=== PATIENT | female | born 1960 | race Caucasian/White ===

== ENCOUNTER 2016-05-14 10:11 | Emergency (ER) | payer MEDICARE, OTHER ==
--- NOTE | 2016-05-14 13:50 | ED ---
General Adult HPI - General Chief complaint: Upper Respiratory Infection Stated complaint: dizzy,congestion Time Seen by Provider: 05/14/16 10:35 Source: patient, RN notes reviewed Mode of arrival: ambulatory Limitations: no limitations - History of Present Illness Initial comments: This is a 55-year-old female who presents emergency Department stating that since she's had a cough is been unable to get over the cough. Patient states she has not been able produce any sputum. Patient states she has had no difficulty breathing or shortness of breath. Patient states occasionally she coughs real hard she has some sharp chest pain but without coughing she has no chest pain. Patient denies any recent fever or chills. Patient denies any facial tenderness. Patient denies any sore throat or ear pain. Patient states occasionally she has a mild headache from all the coughing but currently does not have a headache. Patient states the main reason for coming in today is because she has to go see a friend who she is had surgery and she does not want to get her infected. Any abdominal pain patient denies nausea vomiting diarrhea. - Related Data Home Medications Medication Instructions Recorded Confirmed Baclofen [Lioresal] 10 mg PO DAILY@0900 02/04/16 05/14/16 Carvedilol [Carvedilol] 6.25 mg PO BID@0900,1700 02/04/16 05/14/16 Gabapentin [Gabapentin] 300 mg PO TID 02/04/16 05/14/16 rOPINIRole HCL 10 mg PO HS@2100 02/04/16 05/14/16 Levothyroxine Sodium [Synthroid] 112 mcg PO DAILY@0700 05/14/16 05/14/16 Lisinopril [Zestril] 10 mg PO DAILY@0900 05/14/16 05/14/16 Lovastatin [Mevacor] 40 mg PO HS 05/14/16 05/14/16 Spironolactone [Aldactone] 25 mg PO DAILY@0900 05/14/16 05/14/16 Previous Rx's Medication Instructions Recorded Azithromycin [Zithromax Tri-Micah] 500 mg PO DAILY #3 tab 05/14/16 Allergies Allergy/AdvReac Type Severity Reaction Status Date / Time adhesive Allergy Rash/Hives Verified 05/14/16 13:37 ibuprofen [From Motrin] Allergy Rash/Hives Verified 05/14/16 13:37 latex Allergy Rash/Hives Verified 05/14/16 13:37 Penicillins Allergy Rash/Hives Verified 05/14/16 13:37 topiramate [From Topamax] Allergy Swelling Verified 05/14/16 13:37 Review of Systems ROS Statement: Those systems with pertinent positive or pertinent negative responses have been documented in the HPI. ROS Other: All systems not noted in ROS Statement are negative. Past Medical History Past Medical History: Asthma, Coronary Artery Disease (CAD), Chest Pain / Angina , Heart Failure, Hyperlipidemia, Hypertension, Seizure Disorder, Skin Disorder, Sleep Apnea/CPAP/BIPAP Additional Past Medical History / Comment(s): LAST KNOWN SEIZURE IN DEC, 2015. 01/11/16Pt direct admission for seizures and unsteady gait. Other HX: developementally disabled, hypothyroid, RLS, cervical and back pain with pain down bilateral legs, leg weakness, nausea at times, occasional numbness and tingling to bilateral hands and feet.NO CPAP MACHINE, CONSTIPATED. History of Any Multi-Drug Resistant Organisms: None Reported Past Surgical History: Adenoidectomy, Heart Catheterization, Hysterectomy, Tonsillectomy Additional Past Surgical History / Comment(s): 08/02/15 colonoscopy, 05/30/14 cardiac cath, cervical surgery 10/2014 - at [facility], Past Anesthesia/Blood Transfusion Reactions: No Reported Reaction Date of Last Stent Placement:: 06/03/2014 Past Psychological History: Depression Additional Psychological History / Comment(s): Pt states she currently resides with her sister. She is mildly developmentally delayed. She has a case briefer and a nurse who comes once a week. She uses [employer] to manage her medications. She gets to [employer] by bus. She does not read or write other than signing her name. She has no legal gaurdian. She states she has had falls and that her sister's home is too small for her to be able to use any assistive devices. She states her sister can no longer help her up when she falls. She has a seizure disorder. Smoking Status: Never smoker Past Alcohol Use History: None Reported Additional Past Alcohol Use History / Comment(s): Pt states she is around 2nd hand smoke. Past Drug Use History: None Reported - Past Family History Father Family Medical History: Diabetes Mellitus, Renal Disease Additional Family Medical History / Comment(s): Father had IDDM. He at the age of 73 yrs. Mother Family Medical History: Diabetes Mellitus Additional Family Medical History / Comment(s): "heart problems" "had stents", IDDM. Mother at the age of 73 yrs. General Exam - General Exam Comments Initial Comments: GENERAL: Patient is well-developed and well-nourished. Patient is nontoxic and well- hydrated and is in mild distress. ENT: Neck is soft and supple. No significant lymphadenopathy is noted. Oropharynx is clear. Moist mucous membranes. Neck has full range of motion without eliciting any pain. EYES: The sclera were anicteric and conjunctiva were pink and moist. Extraocular movements were intact and pupils were equal round and reactive to light. Eyelids were unremarkable. PULMONARY: Unlabored respirations. Good breath sounds bilaterally. No audible rales rhonchi or wheezing was noted. CARDIOVASCULAR: There is a regular rate and rhythm without any murmurs gallops or rubs. ABDOMEN: Soft and nontender with normal bowel sounds. No palpable organomegaly was noted. There is no palpable pulsatile mass. SKIN: Skin is clear with no lesions or rashes and otherwise unremarkable. NEUROLOGIC: Patient is alert and oriented x3. Cranial nerves II through XII are grossly intact. Motor and sensory are also intact. Normal speech, volume and content. MUSCULOSKELETAL: Normal extremities with adequate strength and full range of motion. No lower extremity swelling or edema. No calf tenderness. LYMPHATICS: No significant lymphadenopathy is noted PSYCHIATRIC: Normal psychiatric evaluation. Limitations: no limitations Course Vital Signs 05/14/16 05/14/16 05/14/16 10:15 13:54 14:14 Temperature 98.1 F 98.2 F Pulse Rate 84 76 67 Respiratory 18 18 20 Rate Blood Pressure 113/58 111/64 122/69 O2 Sat by Pulse 97 96 100 Oximetry Medical Decision Making - Medical Decision Making Chest x-ray shows no acute abnormality. But because of the patient's continuing cough and start the patient on some Zithromax and have her follow-up with her primary medical care doctor. Disposition Clinical Impression: Bronchitis Disposition: HOME SELF-CARE Condition: Good Instructions: Acute Bronchitis (ED) Prescriptions: Azithromycin [Zithromax Tri-Micah] 500 mg PO DAILY #3 tab Referrals: Júnior Hancock MD [Primary Care Provider] - 1-2 days Time of Disposition: 14:24
[2016-05-14 13:56] VITALS: TEMP 98.2
--- NOTE | 2016-05-14 14:09 | XR ---
EXAMINATION TYPE: XR chest 2V DATE OF EXAM: 05/14/2016 2:03 PM COMPARISON: Prior chest x-ray January 09, 2016. HISTORY: Difficulty in breathing and cough for one month. TECHNIQUE: Frontal and lateral views of the chest are obtained. FINDINGS: There is no focal air space opacity, pleural effusion, or pneumothorax seen. The cardiac silhouette size is stable and enlarged. Surgical changes lower cervical spine are redemonstrated with vertebral body cage and anterior fusion plate noted. IMPRESSION: Cardiomegaly without acute pulmonary process. No significant change from prior.
[2016-05-14 14:15] VITALS: BP 122/69; PULSE 67; RESP 20
== END 2016-05-14 14:41 | disposition home or self-care (01) ==
LOC: EC 10:11
DX: J40 Bronchitis, not specified as acute or chronic (principal); I51.7 Cardiomegaly; R62.50 Unspecified lack of expected normal physiological development in childhood; I25.10 Atherosclerotic heart disease of native coronary artery without angina pectoris; G25.81 Restless legs syndrome; E03.9 Hypothyroidism, unspecified; I50.9 Heart failure, unspecified; I10 Essential (primary) hypertension; Z88.8 Allergy status to other drugs, medicaments and biological substances; Z88.6 Allergy status to analgesic agent; Z88.0 Allergy status to penicillin; Z98.61 Coronary angioplasty status; Z91.040 Latex allergy status; Z91.048 Other nonmedicinal substance allergy status; Z79.899 Other long term (current) drug therapy
CPT/HCPCS: 71020; 99283

== ENCOUNTER → 2016-05-29 | Outpatient (CLI) | payer MEDICARE, OTHER ==
--- NOTE | 2016-05-29 11:53 | CT ---
EXAMINATION TYPE: CT chest w con DATE OF EXAM: 05/29/2016 10:50 AM COMPARISON: Chest x-ray 14 May 2016 HISTORY: Patient complains of difficulty breathing, shortness of breath. CT DLP: 551.3 mGycm Automated exposure control for dose reduction was used. CONTRAST: CT scan of the chest is performed with IV Contrast, patient injected with 100 mL of Omnipaque 300. FINDINGS: LUNGS: The lungs are clear, there is no concerning parenchymal mass or nodule identified. There is no pleural effusion or pneumothorax seen. The tracheobronchial tree is patent. MEDIASTINUM: There are no greater than 1 cm hilar or mediastinal lymph nodes. No pericardial effusi on is seen. AORTA: No additional significant abnormality is seen. There is a four-vessel transverse aorta. Pulmo nary artery measures approximately 3.5 cm. Ascending aorta is 3.8 cm. Heart size is borderline increa sed. OTHER: Postop changes are noted to the lower cervical spine. IMPRESSION: Consider pulmonary artery hypertension. Borderline cardiac size..
== END | disposition home or self-care (01) ==
LOC: RADCTMAIN 10:24
PROVIDERS: ATTEND Family Medicine
DX: R06.02 Shortness of breath (principal)
CPT/HCPCS: 71260; Q9967

== ENCOUNTER → 2016-06-26 | Outpatient (CLI) | payer MEDICARE, OTHER ==
--- NOTE | 2016-06-26 14:09 | CT ---
EXAMINATION TYPE: CT abdomen pelvis wo con DATE OF EXAM: 06/26/2016 1:35 PM COMPARISON: NONE HISTORY: Epigastric pain after eating. CT DLP: 2079 mGycm Automated exposure control for dose reduction was used. TECHNIQUE: Helical acquisition of images was performed from the lung bases through the pelvis. FINDINGS: LUNG BASES: No significant abnormality is appreciated. LIVER/GB: No significant abnormality is appreciated. PANCREAS: No significant abnormality is seen. SPLEEN: No significant abnormality is seen. ADRENALS: No significant abnormality is seen. KIDNEYS: No significant abnormality is seen. URINARY BLADDER: No significant abnormality is seen. ADENOPATHY: None visualized. OSSEOUS STRUCTURES: Hypertrophic change of the spine. Degenerative disc disease involving levels L3- S1 with severe changes at L5-S1. Vacuum disc noted.. BOWEL: No significant abnormality is seen. IMPRESSION: LIMITED EXAM DUE TO LACK OF IV CONTRAST. NO ACUTE PROCESS IDENTIFIED.
== END ==
LOC: RADCTMAIN 13:07
PROVIDERS: ATTEND Family Medicine
DX: R10.9 Unspecified abdominal pain (principal)
CPT/HCPCS: 74176

== ENCOUNTER 2016-10-27 20:35 | Emergency (ER) | payer MEDICARE ==
--- NOTE | 2016-10-27 21:07 | ED ---
General Adult HPI - General Chief complaint: Extremity Injury, Lower Stated complaint: Swollen leg Time Seen by Provider: 10/27/16 20:52 Source: patient, RN notes reviewed Mode of arrival: ambulatory Limitations: no limitations - History of Present Illness Initial comments: Patient 56-year-old female who presents emergency room today with chief complaint of injury to the right ankle. Does admit that she fractured her right ankle approximately a month ago. States she's been using a walking boot. States a week ago she fell injuring the ankle once again. She states she did have boot on at the time. States that her knees found out about this advised to come to the emergency room to have it evaluated. She denies any other complaints or associated symptoms at this time. Patient denies any recent fever , chills, shortness of breath, chest pain, back pain, abdominal pain, nausea or vomiting, numbness or tingling, dysuria or hematuria, constipation or diarrhea, headaches or visual changes, or any other complaints. - Related Data Home Medications Medication Instructions Recorded Confirmed Baclofen [Lioresal] 10 mg PO DAILY@0900 02/04/16 05/14/16 Carvedilol [Carvedilol] 6.25 mg PO BID@0900,1700 02/04/16 05/14/16 Gabapentin [Gabapentin] 300 mg PO TID 02/04/16 05/14/16 rOPINIRole HCL 10 mg PO HS@2100 02/04/16 05/14/16 Levothyroxine Sodium [Synthroid] 112 mcg PO DAILY@0700 05/14/16 05/14/16 Lisinopril [Zestril] 10 mg PO DAILY@0900 05/14/16 05/14/16 Lovastatin [Mevacor] 40 mg PO HS 05/14/16 05/14/16 Spironolactone [Aldactone] 25 mg PO DAILY@0900 05/14/16 05/14/16 Previous Rx's Medication Instructions Recorded Azithromycin [Zithromax Tri-Micah] 500 mg PO DAILY #3 tab 05/14/16 Allergies Allergy/AdvReac Type Severity Reaction Status Date / Time adhesive Allergy Rash/Hives Verified 10/27/16 20:50 ibuprofen [From Motrin] Allergy Rash/Hives Verified 10/27/16 20:50 latex Allergy Rash/Hives Verified 10/27/16 20:50 Penicillins Allergy Rash/Hives Verified 10/27/16 20:50 topiramate [From Topamax] Allergy Swelling Verified 10/27/16 20:50 Review of Systems ROS Statement: Those systems with pertinent positive or pertinent negative responses have been documented in the HPI. ROS Other: All systems not noted in ROS Statement are negative. Past Medical History Past Medical History: Asthma, Coronary Artery Disease (CAD), Chest Pain / Angina , Heart Failure, Hyperlipidemia, Hypertension, Seizure Disorder, Skin Disorder, Sleep Apnea/CPAP/BIPAP Additional Past Medical History / Comment(s): LAST KNOWN SEIZURE IN DEC, 2015. 01/11/16Pt direct admission for seizures and unsteady gait. Other HX: developementally disabled, hypothyroid, RLS, cervical and back pain with pain down bilateral legs, leg weakness, nausea at times, occasional numbness and tingling to bilateral hands and feet.NO CPAP MACHINE, CONSTIPATED. History of Any Multi-Drug Resistant Organisms: None Reported Past Surgical History: Adenoidectomy, Heart Catheterization, Hysterectomy, Tonsillectomy Additional Past Surgical History / Comment(s): 08/02/15 colonoscopy, 05/30/14 cardiac cath, cervical surgery 10/2014 - at [facility], Past Anesthesia/Blood Transfusion Reactions: No Reported Reaction Date of Last Stent Placement:: 06/03/2014 Past Psychological History: Depression Smoking Status: Never smoker Past Alcohol Use History: None Reported Past Drug Use History: None Reported - Past Family History Father Family Medical History: Diabetes Mellitus, Renal Disease Additional Family Medical History / Comment(s): Father had IDDM. He at the age of 73 yrs. Mother Family Medical History: Diabetes Mellitus Additional Family Medical History / Comment(s): "heart problems" "had stents", IDDM. Mother at the age of 73 yrs. General Exam - General Exam Comments Initial Comments: General: The patient is awake and alert, in no distress, and does not appear acutely ill. Neck: The neck is supple, there is no tenderness or JVD. Cardiovascular: There is a regular rate and rhythm. No murmur, rub or gallop is appreciated. Respiratory: Lungs are clear to auscultation, respirations are non-labored, breath sounds are equal. No wheezes, stridor, rales, or rhonchi. Musculoskeletal: Normal appearance of the right ankle obvious deformity. Shows good range of motion both plantar dorsiflexion. Mild tenderness over the fifth metatarsal. Mild tenderness over the lateral malleolus. On the bony tenderness. No tenderness to the right knee. Sensations intact with pulses equal bilaterally 2+. Neurological: A&O x 3. CN II-XII intact, There are no obvious motor or sensory deficits. Coordination appears grossly intact. Speech is normal. Skin: Skin is warm and dry and no rashes or lesions are noted. Psychiatric: Normal mood and affect. Limitations: no limitations Course Vital Signs 10/27/16 10/27/16 20:44 21:32 Temperature 98.2 F 97.6 F Pulse Rate 79 72 Respiratory 20 20 Rate Blood Pressure 182/103 151/76 O2 Sat by Pulse 99 99 Oximetry Medical Decision Making - Medical Decision Making X-ray reviewed shows a healing fracture with no dislocation. Results were discussed with the patient. Patient advised to continue using walking boot when up and moving around. Advised ice elevate the area for pain. Advised follow-up with her orthopedic or the next 2 days or return if any symptoms increase or worsen or for any other concerns. She states understanding and is in agreement. Disposition Clinical Impression: Ankle fracture, right Disposition: HOME SELF-CARE Condition: Good Instructions: Ankle Fracture (ED) Additional Instructions: Please follow-up with orthopedic/family doctor in the next 2 days of symptoms. Please return to emergency room if the symptoms increase or worsen or for any other concerns. Referrals: Júnior Hancock MD [Primary Care Provider] - 1-2 days Dick Emerson MD [REFERRING] - 1-2 days Time of Disposition: 21:40
--- NOTE | 2016-10-27 21:31 | XR ---
EXAMINATION TYPE: XR foot complete RT DATE OF EXAM: 10/27/2016 COMPARISON: NONE HISTORY: Ankle pain TECHNIQUE: 3 views FINDINGS: There is an Achilles calcaneal spur. There is soft tissue swelling in the forefoot. Metatar sals appear intact. I see no fracture nor dislocation. Healing oblique fracture distal fibula is note d. IMPRESSION: No acute bony abnormality of the foot. Soft tissue swelling.
--- NOTE | 2016-10-27 21:33 | XR ---
EXAMINATION TYPE: XR ankle complete RT DATE OF EXAM: 10/27/2016 COMPARISON: NONE HISTORY: Pain TECHNIQUE: 3 views FINDINGS: There is an oblique fracture of the distal fibula with bridging callus. Ankle mortise is an atomic. There is an Achilles calcaneal spur. IMPRESSION: Healing fracture of the distal fibula. No significant displacement. Calcaneal spurring.
[2016-10-27 21:58] VITALS: BP 160/97; PULSE 73; RESP 15; TEMP 97.5
== END 2016-10-27 21:58 | disposition home or self-care (01) ==
LOC: EC 20:35
DX: S82.831D Other fracture of upper and lower end of right fibula, subsequent encounter for closed fracture with routine healing (principal); I50.9 Heart failure, unspecified; I25.10 Atherosclerotic heart disease of native coronary artery without angina pectoris; E78.5 Hyperlipidemia, unspecified; I10 Essential (primary) hypertension; G40.909 Epilepsy, unspecified, not intractable, without status epilepticus; E03.9 Hypothyroidism, unspecified; G25.81 Restless legs syndrome; Z79.899 Other long term (current) drug therapy; Z88.0 Allergy status to penicillin; Z91.040 Latex allergy status; Z88.6 Allergy status to analgesic agent; Z88.8 Allergy status to other drugs, medicaments and biological substances; Z95.818 Presence of other cardiac implants and grafts; W18.30XA Fall on same level, unspecified, initial encounter
CPT/HCPCS: 99283

== ENCOUNTER → 2017-10-06 | Day surgery (SDC) | payer MEDICARE, OTHER ==
[2017-10-01 13:32] VITALS: BMI 43.8
[~2017-10-06] MED LIST: LACTATED RINGERS 1,000 ML IV SCH; PROPOFOL 10 MG/ML 20 ML VIAL IV ONE
[2017-10-06 09:17] VITALS: RESP 16; TEMP 96.9
--- NOTE | 2017-10-06 09:50 | P.GSHP ---
History of Present Illness H&P Date: 10/06/17 Chief Complaint: GERD, colitis Reproducer 56-year-old female who's had long-standing problems with GERD and colitis. Patient is also had complaints of abdominal pain change in bowel had with diarrhea. She presents today for EGD and colonoscopy. Past Medical History Past Medical History: Chest Pain / Angina, Heart Failure, Hyperlipidemia, Hypertension, Osteoarthritis (OA), Pneumonia, Seizure Disorder, Skin Disorder, Sleep Apnea/CPAP/BIPAP, Thyroid Disorder Additional Past Medical History / Comment(s): LAST KNOWN SEIZURE a couple months ago. developementally disabled, restless leg syndrme, cervical and back pain with pain down bilateral legs, leg weakness, occasional numbness and tingling to bilateral hands and feet, no cpap used currently, abdominal pain. has a bowel movement-(diarrhea)- right after eating, states has had recent falls , persistant itching-cause unknown, History of Any Multi-Drug Resistant Organisms: None Reported Past Surgical History: Adenoidectomy, Cholecystectomy, Heart Catheterization, Hysterectomy, Tonsillectomy Additional Past Surgical History / Comment(s): cervical surgery/cage, Past Anesthesia/Blood Transfusion Reactions: No Reported Reaction Date of Last Stent Placement:: 06/03/2014 Smoking Status: Never smoker - Past Family History Father Family Medical History: Diabetes Mellitus, Renal Disease Additional Family Medical History / Comment(s): Father had IDDM. He at the age of 73 yrs. Mother Family Medical History: No Reported History Additional Family Medical History / Comment(s): . Medications and Allergies Home Medications Medication Instructions Recorded Confirmed Type Gabapentin [Gabapentin] 300 mg PO BID 02/04/16 10/01/17 History rOPINIRole HCL 5 mg PO HS 02/04/16 10/01/17 History Baclofen [Lioresal] 10 mg PO BID 10/01/17 10/01/17 History Famotidine [Pepcid] 20 mg PO DAILY 10/01/17 10/01/17 History Furosemide [Lasix] 40 mg PO DAILY 10/01/17 10/01/17 History Inhaler(Name Unknown) 2 puff IH TID PRN 10/01/17 10/06/17 History Losartan [Cozaar] 50 mg PO DAILY 10/01/17 10/01/17 History Potassium Chloride [Klor-Con 8 meq PO DAILY 10/01/17 10/01/17 History Sprinkle] levETIRAcetam [Keppra] 750 mg PO Q12HR 10/01/17 10/01/17 History Allergies Allergy/AdvReac Type Severity Reaction Status Date / Time adhesive Allergy Rash/Hives Verified 10/01/17 13:08 divalproex sodium Allergy Rash/Hives Verified 10/01/17 13:08 [From Depakote] ibuprofen [From Motrin] Allergy Rash/Hives Verified 10/01/17 13:08 latex Allergy Rash/Hives Verified 10/01/17 13:08 Penicillins Allergy Rash/Hives Verified 10/01/17 13:08 topiramate [From Topamax] Allergy Swelling Verified 10/01/17 13:08 Surgical - Exam Vital Signs Temp Pulse Resp BP Pulse Ox 96.9 F L 79 16 169/98 98 10/06/17 09:16 10/06/17 09:16 10/06/17 09:16 10/06/17 09:16 10/06/17 09:16 BMI 44 - General well developed, no distress - Eyes PERRL - ENT normal pinna, normal nares - Respiratory normal expansion - Cardiovascular Rhythm: regular - Abdomen Abdomen: soft, non tender Assessment and Plan Assessment: GERD Abdominal pain, diarrhea Colitis We'll perform EGD colonoscopy.
--- NOTE | 2017-10-06 10:13 | P.OP ---
Date of Procedure: 10/06/17 Preoperative Diagnosis: GERD Colitis Postoperative Diagnosis: Antral gastritis Small hiatal hernia Mild esophagitis Rectal biopsy pathology pending Procedure(s) Performed: EGD Colonoscopy Anesthesia: MAC Surgeon: Blayne Sethi Pathology: other (Antrum, rectum, esophagus) Condition: stable Disposition: PACU Description of Procedure: Patient's placed on the endoscopy table lateral position. She received IV sedation. Digital rectal exam was performed which revealed a few external hemorrhoids. Flexible colonoscope was then placed the patient's anus and passed rotator entire colon. The ileocecal valve was visualized. The cecum, ascending and transverse colonAppeared normal. The scope was brought back the descending and sigmoid and this appeared normal. Scope summer back the rectum and a random biopsies performed. The rectum appeared normal. The scope was then withdrawn from patient. Next the gastroscope was placed oropharynx passed in the esophagus the scope was then placed through the pylorus. The scope was placed the first second portion of duodenum. The first and second portion duodenum appeared normal. Scope summer back the antrum this. Mildly inflamed. A biopsies performed. Scope was then retroflexed and remainder stomach appeared normal. There was a small hiatal hernia. The GE junction was at 38 cm. The distal esophagus was minimal inflamed and a biopsies performed. The proximal esophagus appeared normal. Scope was withdrawn for patient.
[2017-10-06 10:58] VITALS: BP 163/84; PULSE 63
== END | disposition home or self-care (01) ==
LOC: ORWHC2ENDO 08:46
PROVIDERS: ATTEND Surgery
DX: K29.50 Unspecified chronic gastritis without bleeding (principal); K52.9 Noninfective gastroenteritis and colitis, unspecified; K44.9 Diaphragmatic hernia without obstruction or gangrene; K64.4 Residual hemorrhoidal skin tags; K21.0 Gastro-esophageal reflux disease with esophagitis; I11.0 Hypertensive heart disease with heart failure; I50.9 Heart failure, unspecified; M19.90 Unspecified osteoarthritis, unspecified site; E07.9 Disorder of thyroid, unspecified; G25.81 Restless legs syndrome; E78.5 Hyperlipidemia, unspecified; G40.909 Epilepsy, unspecified, not intractable, without status epilepticus; Z88.0 Allergy status to penicillin; Z88.6 Allergy status to analgesic agent; Z99.89 Dependence on other enabling machines and devices; Z90.49 Acquired absence of other specified parts of digestive tract; Z83.3 Family history of diabetes mellitus; Z91.040 Latex allergy status; Z88.8 Allergy status to other drugs, medicaments and biological substances; Z91.048 Other nonmedicinal substance allergy status; G47.33 Obstructive sleep apnea (adult) (pediatric); Z87.01 Personal history of pneumonia (recurrent); Z79.899 Other long term (current) drug therapy
CPT/HCPCS: 88305; 88342; 45380; 43239; J2704

== ENCOUNTER → 2018-01-18 | Outpatient (CLI) | payer MEDICARE, OTHER ==
[2018-01-18 15:20] VITALS: BP 107/71; PULSE 64; RESP 16; TEMP 97.9; BMI 47.4
--- NOTE | 2018-01-25 15:03 | P.HPBAR ---
Bariatric H&P - History & Physicial H&P Date: 01/25/18 History & Physicial: Visit/CC: initial visit Patient initial contact: Initial weight: 137.438 kg Initial weight in pounds: 303.00 Height: 5 ft 7 in Initial BMI: 47.4 Last weight: Current weight: 137.438 kg Current weight in pounds: 303.00 Current BMI: 47.4 Henry body weight (based on NIH guidelines): 61.235 kg Excess body weight loss: 0.0% The patient is a 57 year-old F who presents for Bariatric Assessment. Patient presents today for presurgical sleeve gastrectomy consultation. She's had lifetime problems obesity. Her BMI is 48. Past Medical History Past Medical History: Chest Pain / Angina, Heart Failure, Hyperlipidemia, Hypertension, Osteoarthritis (OA), Pneumonia, Seizure Disorder, Skin Disorder, Sleep Apnea/CPAP/BIPAP, Thyroid Disorder Additional Past Medical History / Comment(s): LAST KNOWN SEIZURE a couple months ago. developementally disabled, restless leg syndrme, cervical and back pain with pain down bilateral legs, leg weakness, occasional numbness and tingling to bilateral hands and feet, no cpap used currently, abdominal pain. has a bowel movement-(diarrhea)- right after eating, states has had recent falls , persistant itching-cause unknown, History of Any Multi-Drug Resistant Organisms: None Reported Past Surgical History: Adenoidectomy, Cholecystectomy, Heart Catheterization, Hysterectomy, Tonsillectomy Additional Past Surgical History / Comment(s): cervical surgery/cage, Past Anesthesia/Blood Transfusion Reactions: No Reported Reaction Date of Last Stent Placement:: 06/03/2014 Past Psychological History: Depression Additional Psychological History / Comment(s): Pt states she currently resides with her sister. She is mildly developmentally delayed. She states she has had falls and that her sister's home is too small for her to be able to use any assistive devices. states she signs own consents Smoking Status: Never smoker Past Alcohol Use History: None Reported Additional Past Alcohol Use History / Comment(s): . Past Drug Use History: None Reported - Past Family History Father Family Medical History: Diabetes Mellitus, Renal Disease Additional Family Medical History / Comment(s): Father had IDDM. He at the age of 73 yrs. Mother Family Medical History: No Reported History Additional Family Medical History / Comment(s): . Surgical - Exam Vital Signs Temp Pulse Resp BP 97.9 F 64 16 107/71 01/18/18 15:15 01/18/18 15:15 01/18/18 15:15 01/18/18 15:15 - General well developed, no distress - Eyes PERRL - Abdomen Abdomen: soft, non tender Bariatric Assessment & Plan Plan: Morbid obesity BMI 48. Patient has a good understanding sleeve yesterday. We will over the risks and benefits again including gastric staple line bleeding scarring obstruction or perforation. She's also a risk of recurrent GERD and dysphagia. The patient be scheduled for sleeve gastrectomy once her insurance authorization complete Bariatric Checklist Checklist: Plan: Checklist: EGD: 1. Hiatal hernia: 2. H. Pylori: HgbA1c: Vitamin D: Smoking: Never smoker Primary care physician referral: Psychiatry clearance: Cardiology clearance: Sleep study: Diet journal: VTE risk score: VTE risk level: Rehab needs at discharge:
== END | disposition home or self-care (01) ==
LOC: BARWHC3 13:24
PROVIDERS: ATTEND Surgery
DX: Z01.818 Encounter for other preprocedural examination (principal); E66.01 Morbid (severe) obesity due to excess calories; Z68.42 Body mass index [BMI] 45.0-49.9, adult
CPT/HCPCS: 99201

== ENCOUNTER → 2018-02-17 | Outpatient (CLI) | payer MEDICARE, OTHER ==
[2018-02-17 18:33] LABS: Anion Gap 12.9 mmol/L (4.00-12.00); Calcium 9.8 mg/dL (8.7-10.3); Carbon Dioxide 23.1 mmol/L (21.6-31.8)
== END | disposition home or self-care (01) ==
LOC: LABWHC1 11:47
PROVIDERS: ATTEND Nurse Practitioner Adult Health
DX: I10 Essential (primary) hypertension (principal)
CPT/HCPCS: 36415; 80048

== ENCOUNTER 2018-02-24 09:11 | Day surgery (SDC) | payer MEDICARE, OTHER ==
[2018-02-22 08:55] VITALS: BMI 47.0
[~2018-02-24 09:11] MED LIST changes: +HYDROmorphone 1 MG/ML 1 ML SYRINGE IVP PRN; -PROPOFOL 10 MG/ML 20 ML VIAL IV ONE
[2018-02-24 11:08] VITALS: RESP 16; TEMP 97.7
[2018-02-24] MEDS ORDERED: fentaNYL (PF) 50 MCG/ML 2 ML AMP ONE (12:27)
[2018-02-24] MEDS ORDERED: PROPOFOL 10 MG/ML 20 ML VIAL IV ONE (12:27)
[2018-02-24] MEDS ORDERED: LIDOCAINE 1% INJ 10MG/ML (20 ML MDV) ONE (12:27)
--- NOTE | 2018-02-24 12:33 | P.GSHP ---
History of Present Illness H&P Date: 02/24/18 Chief Complaint: Dysphagia Is a 57-year-old female who's had issues with dysphagia. Patient presents today for EGD Past Medical History Past Medical History: Chest Pain / Angina, Heart Failure, Hyperlipidemia, Hypertension, Osteoarthritis (OA), Pneumonia, Seizure Disorder, Skin Disorder, Sleep Apnea/CPAP/BIPAP, Thyroid Disorder Additional Past Medical History / Comment(s): LAST KNOWN SEIZURE a couple months ago. developementally disabled, restless leg syndrome, back pain with pain down bilateral legs, leg weakness, occasional numbness and tingling to bilateral hands and feet, no cpap used currently, abdominal pain. has a bowel movement-(diarrhea)- right after eating, states has had recent falls, persistant itching-cause unknown, History of Any Multi-Drug Resistant Organisms: None Reported Past Surgical History: Adenoidectomy, Cholecystectomy, Heart Catheterization, Hysterectomy, Tonsillectomy Additional Past Surgical History / Comment(s): cervical surgery/cage, Past Anesthesia/Blood Transfusion Reactions: No Reported Reaction Date of Last Stent Placement:: 06/03/2014 Smoking Status: Never smoker - Past Family History Father Family Medical History: Diabetes Mellitus, Renal Disease Additional Family Medical History / Comment(s): Father had IDDM. He at the age of 73 yrs. Mother Family Medical History: No Reported History Additional Family Medical History / Comment(s): . Medications and Allergies Home Medications Medication Instructions Recorded Confirmed Type Gabapentin 300 mg PO BID 02/04/16 02/24/18 History rOPINIRole HCL 5 mg PO HS 02/04/16 02/24/18 History Baclofen [Lioresal] 10 mg PO BID 10/01/17 02/24/18 History Famotidine [Pepcid] 20 mg PO DAILY 10/01/17 02/24/18 History Furosemide [Lasix] 40 mg PO DAILY 10/01/17 02/24/18 History Inhaler(Name Unknown) 2 puff IH TID PRN 10/01/17 02/24/18 History Losartan [Cozaar] 50 mg PO DAILY 10/01/17 02/24/18 History Potassium Chloride [Klor-Con 8 meq PO DAILY 10/01/17 02/24/18 History Sprinkle] levETIRAcetam [Keppra] 750 mg PO Q12HR 10/01/17 02/24/18 History Allergies Allergy/AdvReac Type Severity Reaction Status Date / Time adhesive Allergy Rash/Hives Verified 02/24/18 11:07 divalproex sodium Allergy Rash/Hives Verified 02/24/18 11:07 [From Depakote] ibuprofen [From Motrin] Allergy Rash/Hives Verified 02/24/18 11:07 latex Allergy Rash/Hives Verified 02/24/18 11:07 Penicillins Allergy Rash/Hives Verified 02/24/18 11:07 topiramate [From Topamax] Allergy Swelling Verified 02/24/18 11:07 Surgical - Exam Vital Signs Temp Pulse Resp Pulse Ox 97.7 F 61 16 98 02/24/18 11:08 02/24/18 11:08 02/24/18 11:08 02/24/18 11:08 - General well developed, no distress - Eyes PERRL - ENT normal pinna - Neck no masses - Respiratory normal expansion - Cardiovascular Rhythm: regular - Abdomen Abdomen: soft, non tender Assessment and Plan Assessment: Dysphagia. We'll perform EGD.
--- NOTE | 2018-02-24 12:40 | P.OP ---
Date of Procedure: 02/24/18 Preoperative Diagnosis: Dysphagia Postoperative Diagnosis: Mild antral gastritis Procedure(s) Performed: EGD Anesthesia: MAC Surgeon: Blayne Sethi Pathology: other (Antrum) Condition: stable Disposition: PACU Description of Procedure: Patient's placed on the endoscopy table in the lateral position. She received IV sedation. The gastroscope placed oropharynx and passed in the esophagus and stomach. Scope was then placed through the pylorus. The first and second portion of the duodenum appeared normal. Scope was then brought back the antrum and this was mildly inflamed. A biopsies performed. The scope was then retroflexed and the remainder of the stomach appeared normal. There was no significant hiatal hernia. The GE junction was at 47 is. The distal esophagus appeared normal. The proximal esophagus. Normal. Scope was then withdrawn from patient.
[2018-02-24 14:22] VITALS: BP 126/70; PULSE 62
== END 2018-02-24 14:00 | disposition home or self-care (01) ==
LOC: ORWHC2ENDO 09:11
PROVIDERS: ATTEND Surgery
DX: K31.9 Disease of stomach and duodenum, unspecified (principal); K29.70 Gastritis, unspecified, without bleeding; I11.0 Hypertensive heart disease with heart failure; I50.9 Heart failure, unspecified; E78.5 Hyperlipidemia, unspecified; M19.90 Unspecified osteoarthritis, unspecified site; G40.909 Epilepsy, unspecified, not intractable, without status epilepticus; G47.30 Sleep apnea, unspecified; E07.9 Disorder of thyroid, unspecified; G25.81 Restless legs syndrome; M54.9 Dorsalgia, unspecified; M79.605 Pain in left leg; M79.604 Pain in right leg; R53.1 Weakness; R20.0 Anesthesia of skin; R20.2 Paresthesia of skin; R19.7 Diarrhea, unspecified; L29.9 Pruritus, unspecified; Z91.81 History of falling; Z79.899 Other long term (current) drug therapy; Z88.6 Allergy status to analgesic agent; Z91.040 Latex allergy status; Z88.0 Allergy status to penicillin; Z88.8 Allergy status to other drugs, medicaments and biological substances; Z91.048 Other nonmedicinal substance allergy status; Z90.49 Acquired absence of other specified parts of digestive tract; Z90.710 Acquired absence of both cervix and uterus; Z99.89 Dependence on other enabling machines and devices
CPT/HCPCS: 43239; J2001; J3010; J2704; 88305

== ENCOUNTER → 2018-03-15 | Outpatient (CLI) | payer MEDICARE, OTHER ==
[2018-03-15 14:42] VITALS: BP 115/86; PULSE 65; RESP 16; TEMP 98.5; BMI 44.6
--- NOTE | 2018-03-15 15:47 | P.HPBAR ---
Bariatric H&P - History & Physicial H&P Date: 03/15/18 History & Physicial: Visit/CC: EGD follow-up Patient initial contact: Initial weight: 137.438 kg Initial weight in pounds: 303.00 Height: 5 ft 7 in Initial BMI: 47.4 Last weight: Current weight: 129.274 kg Current weight in pounds: 285.00 Current BMI: 44.6 [place] body weight (based on NIH guidelines): 61.235 kg Excess body weight loss: 10.7% The patient is a 57 year-old F who presents for Bariatric Assessment. Patient presents today for presurgical consultation for sleeve gastrectomy. Her current BMI is 45. He has minimal complaints of GERD. Past Medical History Past Medical History: Chest Pain / Angina, Heart Failure, Hyperlipidemia, Hypertension, Osteoarthritis (OA), Pneumonia, Seizure Disorder, Skin Disorder, Sleep Apnea/CPAP/BIPAP, Thyroid Disorder Additional Past Medical History / Comment(s): LAST KNOWN SEIZURE a couple months ago. developementally disabled, restless leg syndrme, cervical and back pain with pain down bilateral legs, leg weakness, occasional numbness and tingling to bilateral hands and feet, no cpap used currently, abdominal pain. has a bowel movement-(diarrhea)- right after eating, states has had recent falls , persistant itching-cause unknown, History of Any Multi-Drug Resistant Organisms: None Reported Past Surgical History: Adenoidectomy, Cholecystectomy, Heart Catheterization, Hysterectomy, Tonsillectomy Additional Past Surgical History / Comment(s): cervical surgery/cage, Past Anesthesia/Blood Transfusion Reactions: No Reported Reaction Date of Last Stent Placement:: 06/03/2014 Past Psychological History: Depression Additional Psychological History / Comment(s): Pt states she currently resides with her sister. She is mildly developmentally delayed. She states she has had falls and that her sister's home is too small for her to be able to use any assistive devices. states she signs own consents Smoking Status: Never smoker Past Alcohol Use History: None Reported Additional Past Alcohol Use History / Comment(s): . Past Drug Use History: None Reported - Past Family History Father Family Medical History: Diabetes Mellitus, Renal Disease Additional Family Medical History / Comment(s): Father had IDDM. He at the age of 73 yrs. Mother Family Medical History: No Reported History Additional Family Medical History / Comment(s): . Surgical - Exam Vital Signs Temp Pulse Resp BP 98.5 F 65 16 115/86 03/15/18 14:39 03/15/18 14:39 03/15/18 14:39 03/15/18 14:39 - General well developed, no distress - Eyes PERRL - ENT normal pinna - Neck no masses, no bruits - Respiratory normal expansion - Cardiovascular Rhythm: regular - Abdomen Abdomen: soft, non tender Bariatric Assessment & Plan Plan: Morbid obesity. Patient will be scheduled for gastric sleeve 1 she has met her insurance authorization requirements. She'll follow-up in 4 weeks. Bariatric Checklist Checklist: Plan: Checklist: EGD: 1. Hiatal hernia: 2. H. Pylori: HgbA1c: Vitamin D: Smoking: Never smoker Primary care physician referral: [facility] Psychiatry clearance: Cardiology clearance: Sleep study: Diet journal: VTE risk score: VTE risk level: Rehab needs at discharge:
== END | disposition home or self-care (01) ==
LOC: BARWHC3 13:26
PROVIDERS: ATTEND Surgery
DX: Z01.818 Encounter for other preprocedural examination (principal); E66.01 Morbid (severe) obesity due to excess calories; K21.9 Gastro-esophageal reflux disease without esophagitis; Z68.41 Body mass index [BMI] 40.0-44.9, adult; Z90.49 Acquired absence of other specified parts of digestive tract
CPT/HCPCS: 99211

== ENCOUNTER → 2018-05-03 | Outpatient (CLI) | payer MEDICARE, OTHER ==
[2018-05-03 13:10] VITALS: BP 151/92; PULSE 82; RESP 16; TEMP 97.4; BMI 45.1
--- NOTE | 2018-05-03 16:09 | P.HPBAR ---
Bariatric H&P - History & Physicial H&P Date: 05/03/18 History & Physicial: Visit/CC: EGD FOLLOW-UP Patient initial contact: Initial weight: 137.438 kg Initial weight in pounds: 303.00 Height: 5 ft 7 in Initial BMI: 47.4 Last weight: Current weight: 130.691 kg Current weight in pounds: 288.13 Current BMI: 45.1 [place] body weight (based on NIH guidelines): 61.235 kg Excess body weight loss: 8.8% The patient is a 57 year-old F who presents for Bariatric Assessment. Patient presents today for sleeve gastrectomy follow-up. She's had issues with hypertension and GERD. Her primary care doctor has placed her on additional medication for hypertension. Past Medical History Past Medical History: Chest Pain / Angina, Heart Failure, Hyperlipidemia, Hypertension, Osteoarthritis (OA), Pneumonia, Seizure Disorder, Skin Disorder, Sleep Apnea/CPAP/BIPAP, Thyroid Disorder Additional Past Medical History / Comment(s): LAST KNOWN SEIZURE a couple months ago. developementally disabled, restless leg syndrme, cervical and back pain with pain down bilateral legs, leg weakness, occasional numbness and tingling to bilateral hands and feet, no cpap used currently, abdominal pain. has a bowel movement-(diarrhea)- right after eating, states has had recent falls , persistant itching-cause unknown, History of Any Multi-Drug Resistant Organisms: None Reported Past Surgical History: Adenoidectomy, Cholecystectomy, Heart Catheterization, Hysterectomy, Tonsillectomy Additional Past Surgical History / Comment(s): cervical surgery/cage, Past Anesthesia/Blood Transfusion Reactions: No Reported Reaction Date of Last Stent Placement:: 06/03/2014 Smoking Status: Never smoker - Past Family History Father Family Medical History: Diabetes Mellitus, Renal Disease Additional Family Medical History / Comment(s): Father had IDDM. He at the age of 73 yrs. Mother Family Medical History: No Reported History Additional Family Medical History / Comment(s): . Surgical - Exam Vital Signs Temp Pulse Resp BP 97.4 F L 82 16 151/92 05/03/18 13:08 05/03/18 13:08 05/03/18 13:08 05/03/18 13:08 - General well developed, no distress - Eyes PERRL - ENT normal pinna - Neck no masses - Respiratory normal expansion - Cardiovascular Rhythm: regular - Abdomen Abdomen: soft, non tender Bariatric Assessment & Plan Plan: Status post sleeve gastrectomy. Patient's hypertension is being managed by her primary care doctor. Her GERD is minimal will be observed. She'll follow-up in one month. Bariatric Checklist Checklist: Plan: Checklist: EGD: 1. Hiatal hernia: 2. H. Pylori: HgbA1c: Vitamin D: Smoking: Never smoker Primary care physician referral: [place] Psychiatry clearance: Cardiology clearance: Sleep study: Diet journal: VTE risk score: VTE risk level: Rehab needs at discharge:
== END | disposition home or self-care (01) ==
LOC: BARWHC3 12:32
PROVIDERS: ATTEND Surgery
DX: Z48.815 Encounter for surgical aftercare following surgery on the digestive system (principal); I11.0 Hypertensive heart disease with heart failure; I50.9 Heart failure, unspecified; K21.9 Gastro-esophageal reflux disease without esophagitis; E78.5 Hyperlipidemia, unspecified; Z98.84 Bariatric surgery status; Z90.49 Acquired absence of other specified parts of digestive tract; Z95.5 Presence of coronary angioplasty implant and graft; Z79.899 Other long term (current) drug therapy
CPT/HCPCS: 99211

== ENCOUNTER → 2018-05-10 | Outpatient (CLI) | payer MEDICARE, OTHER ==
[2018-05-10 09:32] LABS: Basophils # (A) 0.1 k/uL (0-0.2); Basophils % (A) 1 %; Eosinophils # (A) 0.1 k/uL (0-0.7); Eosinophils % (A) 1 %; HCT 38.5 % (34.0-46.0); HGB 12.4 gm/dL (11.4-16.0); Lymphocytes # (A) 2.1 k/uL (1.0-4.8); Lymphocytes % (A) 21 %; MCH 28.8 pg (25.0-35.0); MCHC 32.1 g/dL (31.0-37.0); MCV 89.6 fL (80.0-100.0); Mean Platelet Volume 6.6; Monocytes # (A) 0.3 k/uL (0-1.0); Monocytes % (A) 3 %; Neutrophils # (A) 7.6 k/uL (1.3-7.7); Neutrophils % (A) 73 %; Platelet Count 345 k/uL (150-450); RBC 4.29 m/uL (3.80-5.40); RDW 14.5 % (11.5-15.5); WBC 10.4 k/uL (3.8-10.6)
== END | disposition home or self-care (01) ==
LOC: LABWHC1 08:14
PROVIDERS: ATTEND Physician Assistant Medical
DX: L29.8 Other pruritus (principal)
CPT/HCPCS: 36415; 82565; 84450; 84460; 84520; 85025

== ENCOUNTER 2018-05-11 14:05 | Observation (INO) | payer MEDICARE, OTHER ==
[2018-05-11 14:11] VITALS: RESP 18
[2018-05-11] MEDS ORDERED: ASPIRIN 81 MG PO STA (14:58)
[2018-05-11] MEDS ORDERED: MORPHINE SULFATE 2 MG/ML SYRINGE IVP STA (14:58)
[2018-05-11] MEDS ORDERED: SODIUM CHLORIDE 0.9% 500 ML 500 ML IV STA ×2 (14:58→15:33)
[2018-05-11 15:16] LABS: Basophils # (A) 0.1 k/uL (0-0.2); Basophils % (A) 0 %; Eosinophils # (A) 0.1 k/uL (0-0.7); Eosinophils % (A) 1 %; HCT 37.6 % (34.0-46.0); HGB 12.2 gm/dL (11.4-16.0); Lymphocytes # (A) 2.4 k/uL (1.0-4.8); Lymphocytes % (A) 20 %; MCH 28.7 pg (25.0-35.0); MCHC 32.4 g/dL (31.0-37.0); MCV 88.5 fL (80.0-100.0); Mean Platelet Volume 6.1; Monocytes # (A) 0.5 k/uL (0-1.0); Monocytes % (A) 4 %; Neutrophils # (A) 8.6 k/uL (1.3-7.7); Neutrophils % (A) 73 %; Platelet Count 377 k/uL (150-450); RBC 4.25 m/uL (3.80-5.40); RDW 14.8 % (11.5-15.5); WBC 11.9 k/uL (3.8-10.6)
[2018-05-11 15:29] LABS: INR 0.9 (<1.2); Partial Thromboplastin Time 24.5 sec (22.0-30.0); Prothrombin Time 10.1 sec (9.0-12.0)
[2018-05-11 15:32] LABS: ALT 20 U/L (9-52); AST 17 U/L (14-36); Alkaline Phosphatase 97 U/L (38-126); Amylase 36 U/L (30-110); Anion Gap 10 mmol/L; Blood Urea Nitrogen 22 mg/dL (7-17); Calcium 9.5 mg/dL (8.4-10.2); Carbon Dioxide 25 mmol/L (22-30); Chloride 106 mmol/L (98-107); Glucose 90 mg/dL (74-99); Lipase 52 U/L (23-300); Potassium 3.9 mmol/L (3.5-5.1); Sodium 141 mmol/L (137-145); Total Bilirubin 0.4 mg/dL (0.2-1.3); Total Protein 6.8 g/dL (6.3-8.2)
[2018-05-11 15:44] LABS: Creatine Kinase 60 U/L (30-135)
--- NOTE | 2018-05-11 15:54 | XR ---
EXAMINATION TYPE: XR chest 2V DATE OF EXAM: 05/11/2018 COMPARISON: Prior chest x-ray 05/14/2016 HISTORY: Chest pain TECHNIQUE: Frontal and lateral views of the chest are obtained. FINDINGS: There is no focal air space opacity, pleural effusion, or pneumothorax seen. The cardiac silhouette size is stable, enlarged. Postop changes are noted to the cervical spine. The osseous str uctures are intact. IMPRESSION: Stable cardiomegaly.
[2018-05-11 15:58] LABS: Creatine Kinase MB 1.2 ng/mL (0.0-2.4); Troponin I <0.012 ng/mL (0.000-0.034)
--- NOTE | 2018-05-11 16:15 | ED ---
General Adult HPI <Naun Gómez - Last Filed: 05/11/18 17:04> - General Source: patient, RN notes reviewed Mode of arrival: ambulatory Limitations: no limitations <Galo Riddle - Last Filed: 05/11/18 17:12> - General Chief complaint: Chest Pain Stated complaint: chest pain/tired Time Seen by Provider: 05/11/18 14:44 - History of Present Illness Initial comments: 57-year-old female with a past medical history of chest pain, heart failure, hyperlipidemia, hypertension, sleep apnea, seizure disorder presents to the emergency department for a chief complaint of chest pain times one week. Patient describes the pain as a pressure in her chest. She admits it does radiate down the left arm. She states this pain comes and goes. She denies any pain radiating to the back. She states she is short of breath but this is her baseline. Patient denies history of previous heart attack. No history of diabetes. Patient has never had a stress test before. Patient has no other complaints at this time including abdominal pain, nausea or vomiting, headache, or visual changes. (Galo Riddle) - Related Data Home Medications Medication Instructions Recorded Confirmed rOPINIRole HCL 5 mg PO BID 02/04/16 05/11/18 Furosemide [Lasix] 40 mg PO BID 10/01/17 05/11/18 Losartan [Cozaar] 50 mg PO DAILY 10/01/17 05/11/18 Baclofen [Lioresal] 20 mg PO BID 05/11/18 05/11/18 Fluticasone/Vilanterol [Breo 1 puff INHALATION RT-DAILY 05/11/18 05/11/18 Ellipta 100-25 Mcg Inhaler] Levothyroxine Sodium [Synthroid] 125 mcg PO DAILY 05/11/18 05/11/18 Lovastatin [Altoprev] 40 mg PO DAILY 05/11/18 05/11/18 Montelukast Sodium [Singulair] 10 mg PO HS 05/11/18 05/11/18 Potassium Chloride [Klor-Con 20] 20 meq PO DAILY 05/11/18 05/11/18 amLODIPine [Norvasc] 5 mg PO DAILY 05/11/18 05/11/18 cloNIDine HCL [Catapres] 0.2 mg PO TID 05/11/18 05/11/18 levETIRAcetam [Keppra] 1,000 mg PO Q12HR 05/11/18 05/11/18 Allergies Allergy/AdvReac Type Severity Reaction Status Date / Time adhesive Allergy Rash/Hives Verified 05/11/18 14:45 divalproex sodium Allergy Rash/Hives Verified 05/11/18 14:45 [From Depakote] ibuprofen [From Motrin] Allergy Rash/Hives Verified 05/11/18 14:45 latex Allergy Rash/Hives Verified 05/11/18 14:45 Penicillins Allergy Rash/Hives Verified 05/11/18 14:45 topiramate [From Topamax] Allergy Swelling Verified 05/11/18 14:45 Review of Systems ROS Other: All systems not noted in ROS Statement are negative. <Naun Gómez - Last Filed: 05/11/18 17:04> ROS Other: All systems not noted in ROS Statement are negative. <Galo Riddle - Last Filed: 05/11/18 17:12> ROS Statement: Those systems with pertinent positive or pertinent negative responses have been documented in the HPI. Past Medical History Past Medical History: Chest Pain / Angina, Heart Failure, Hyperlipidemia, Hypertension, Osteoarthritis (OA), Pneumonia, Seizure Disorder, Skin Disorder, Sleep Apnea/CPAP/BIPAP, Thyroid Disorder Additional Past Medical History / Comment(s): LAST KNOWN SEIZURE a couple months ago. developementally disabled, restless leg syndrme, cervical and back pain with pain down bilateral legs, leg weakness, occasional numbness and tingling to bilateral hands and feet, no cpap used currently, abdominal pain. has a bowel movement-(diarrhea)- right after eating, states has had recent falls , persistant itching-cause unknown, History of Any Multi-Drug Resistant Organisms: None Reported Past Surgical History: Adenoidectomy, Cholecystectomy, Heart Catheterization, Hysterectomy, Tonsillectomy Additional Past Surgical History / Comment(s): cervical surgery/cage, Past Anesthesia/Blood Transfusion Reactions: No Reported Reaction Date of Last Stent Placement:: 06/03/2014 Past Psychological History: Depression Smoking Status: Never smoker Past Alcohol Use History: None Reported Past Drug Use History: None Reported - Past Family History Father Family Medical History: Diabetes Mellitus, Renal Disease Additional Family Medical History / Comment(s): Father had IDDM. He at the age of 73 yrs. Mother Family Medical History: No Reported History Additional Family Medical History / Comment(s): . <Galo Riddle - Last Filed: 05/11/18 17:12> General Exam Limitations: no limitations General appearance: alert, in no apparent distress Head exam: Present: atraumatic, normocephalic, normal inspection Eye exam: Present: normal appearance, PERRL, EOMI. Absent: scleral icterus, conjunctival injection, periorbital swelling ENT exam: Present: normal exam, mucous membranes moist Neck exam: Present: normal inspection, full ROM. Absent: tenderness, meningismus, lymphadenopathy Respiratory exam: Present: normal lung sounds bilaterally. Absent: respiratory distress, wheezes, rales, rhonchi, stridor Cardiovascular Exam: Present: regular rate, normal rhythm, normal heart sounds. Absent: systolic murmur, diastolic murmur, rubs, gallop, clicks GI/Abdominal exam: Present: soft, normal bowel sounds. Absent: distended, tenderness, guarding, rebound, rigid Neurological exam: Present: alert, oriented X3, CN II-XII intact Psychiatric exam: Present: normal affect, normal mood <Galo Riddle - Last Filed: 05/11/18 17:12> Vital Signs 05/11/18 05/11/18 05/11/18 14:09 15:00 15:30 Temperature 98.4 F Pulse Rate 84 66 62 Respiratory 18 Rate Blood Pressure 111/71 98/63 90/59 O2 Sat by Pulse 98 97 98 Oximetry 05/11/18 05/11/18 05/11/18 15:40 16:30 16:40 Temperature Pulse Rate 56 L 56 L Respiratory Rate Blood Pressure 82/59 101/69 102/71 O2 Sat by Pulse 100 100 Oximetry EKG Findings - EKG Comments: EKG Findings:: Normal sinus rhythm, ventricular rate 80, VT interval 180, QTC 449, no evidence of ST elevation or depression <Galo Riddle - Last Filed: 05/11/18 17:12> Medical Decision Making - Lab Data Result diagrams: 05/11/18 14:45 05/11/18 14:45 <Naun Gómez - Last Filed: 05/11/18 17:04> - Lab Data Result diagrams: 05/11/18 14:45 05/11/18 14:45 <Galo Riddle P - Last Filed: 05/11/18 17:12> - Medical Decision Making Case discussed with practitioner Amirah. Results reviewed. Case discussed in detail with Dr. Hancock, who will admit his patient. (Naun Gómez) 57-year-old female with a past medical history of chest pain, heart failure, hyperlipidemia, hypertension presents to the emergency department for chief complaint of chest pain times one week. She states his pain is a pressure in her chest and does radiate into her left arm. She denies any radiating pain to the back. Patient admits to mild shortness of breath, states this is her baseline. Denies history of heart attack previously but does have a history of heart failure. CBC unremarkable. White blood cell count of 11.9 is likely reactive. CMP within normal limits. D-dimer is negative, low suspicion of PE or dissection. Troponin less than 0.012. Chest x-ray shows no acute process. Given patient's age, history of hyperlipidemia, and other comorbidities patient will be admitted for serial troponins and cardiology consults. Patient did become hypotensive in the ER, patient is on four blood pressure medications which is likely the cause of her hypotension. This did resolve with a 1 L bolus of fluids. (Galo Riddle) - Lab Data Lab Results 05/11/18 05/11/18 05/11/18 Range/Units 14:45 14:45 14:45 WBC 11.9 H (3.8-10.6) k/uL RBC 4.25 (3.80-5.40) m/uL Hgb 12.2 (11.4-16.0) gm/dL Hct 37.6 (34.0-46.0) % MCV 88.5 (80.0-100.0) fL MCH 28.7 (25.0-35.0) pg MCHC 32.4 (31.0-37.0) g/dL RDW 14.8 (11.5-15.5) % Plt Count 377 (150-450) k/uL Neutrophils % 73 % Lymphocytes % 20 % Monocytes % 4 % Eosinophils % 1 % Basophils % 0 % Neutrophils # 8.6 H (1.3-7.7) k/uL Lymphocytes # 2.4 (1.0-4.8) k/uL Monocytes # 0.5 (0-1.0) k/uL Eosinophils # 0.1 (0-0.7) k/uL Basophils # 0.1 (0-0.2) k/uL PT (9.0-12.0) sec INR (<1.2) APTT (22.0-30.0) sec D-Dimer (<0.60) mg/L FEU Sodium 141 (137-145) mmol/L Potassium 3.9 (3.5-5.1) mmol/L Chloride 106 (98-107) mmol/L Carbon Dioxide 25 (22-30) mmol/L Anion Gap 10 mmol/L BUN 22 H (7-17) mg/dL Creatinine 0.79 (0.52-1.04) mg/dL Est GFR (CKD-EPI)AfAm >90 (>60 ml/min/1.73 sqM) Est GFR (CKD-EPI)NonAf 85 (>60 ml/min/1.73 sqM) Glucose 90 (74-99) mg/dL Calcium 9.5 (8.4-10.2) mg/dL Magnesium 2.0 (1.6-2.3) mg/dL Total Bilirubin 0.4 (0.2-1.3) mg/dL AST 17 (14-36) U/L ALT 20 (9-52) U/L Alkaline Phosphatase 97 (38-126) U/L Total Creatine Kinase 60 (30-135) U/L CK-MB (CK-2) 1.2 (0.0-2.4) ng/mL CK-MB (CK-2) Rel Index 2.0 Troponin I <0.012 (0.000-0.034) ng/mL NT-Pro-B Natriuret Pep pg/mL Total Protein 6.8 (6.3-8.2) g/dL Albumin 4.0 (3.5-5.0) g/dL Amylase 36 (30-110) U/L Lipase 52 (23-300) U/L 05/11/18 05/11/18 05/11/18 Range/Units 14:45 14:45 14:45 WBC (3.8-10.6) k/uL RBC (3.80-5.40) m/uL Hgb (11.4-16.0) gm/dL Hct (34.0-46.0) % MCV (80.0-100.0) fL MCH (25.0-35.0) pg MCHC (31.0-37.0) g/dL RDW (11.5-15.5) % Plt Count (150-450) k/uL Neutrophils % % Lymphocytes % % Monocytes % % Eosinophils % % Basophils % % Neutrophils # (1.3-7.7) k/uL Lymphocytes # (1.0-4.8) k/uL Monocytes # (0-1.0) k/uL Eosinophils # (0-0.7) k/uL Basophils # (0-0.2) k/uL PT 10.1 (9.0-12.0) sec INR 0.9 (<1.2) APTT 24.5 (22.0-30.0) sec D-Dimer 0.37 (<0.60) mg/L FEU Sodium (137-145) mmol/L Potassium (3.5-5.1) mmol/L Chloride (98-107) mmol/L Carbon Dioxide (22-30) mmol/L Anion Gap mmol/L BUN (7-17) mg/dL Creatinine (0.52-1.04) mg/dL Est GFR (CKD-EPI)AfAm (>60 ml/min/1.73 sqM) Est GFR (CKD-EPI)NonAf (>60 ml/min/1.73 sqM) Glucose (74-99) mg/dL Calcium (8.4-10.2) mg/dL Magnesium (1.6-2.3) mg/dL Total Bilirubin (0.2-1.3) mg/dL AST (14-36) U/L ALT (9-52) U/L Alkaline Phosphatase (38-126) U/L Total Creatine Kinase (30-135) U/L CK-MB (CK-2) (0.0-2.4) ng/mL CK-MB (CK-2) Rel Index Troponin I (0.000-0.034) ng/mL NT-Pro-B Natriuret Pep 82 pg/mL Total Protein (6.3-8.2) g/dL Albumin (3.5-5.0) g/dL Amylase (30-110) U/L Lipase (23-300) U/L Disposition <Naun Gómez - Last Filed: 05/11/18 17:04> Is patient prescribed a controlled substance at d/c from ED?: No <Galo Riddle - Last Filed: 05/11/18 17:12> Clinical Impression: Chest pain Disposition: ADMITTED IP TO THIS HOSP Condition: Good Instructions: Chest Pain (ED) Referrals: Júnior Hancock MD [Primary Care Provider] - 1-2 days
[2018-05-11] MEDS ORDERED: NITROGLYCERIN SL TABS 0.4 MG TAB SUBLINGUAL PRN (16:48)
[2018-05-11] MEDS ORDERED: HYDROcodone/APAP 5-325MG 1 EACH TAB PO STA (17:41)
[2018-05-11 21:54] VITALS: BMI 45.6
[2018-05-11 21:59] LABS: Creatine Kinase 49 U/L (30-135)
[2018-05-11] MEDS: HYDROcodone/APAP 5-325MG 1 EACH TAB PO PRN (22:03)
[2018-05-11 22:12] LABS: Creatine Kinase MB 0.8 ng/mL (0.0-2.4); Troponin I <0.012 ng/mL (0.000-0.034)
[2018-05-11] MEDS ORDERED: MONTELUKAST 10 MG TAB PO SCH (22:15)
[2018-05-11] MEDS: levETIRAcetam 500 MG TAB PO SCH (23:07)
[2018-05-11] MEDS: POTASSIUM CHLORIDE ER 20 MEQ TAB.ER PO SCH (23:07)
[2018-05-11] MEDS: cloNIDine HCL 0.1 MG TAB PO SCH (23:07)
[2018-05-11] MEDS: BACLOFEN 10 MG TAB PO SCH (23:07)
[2018-05-11] MEDS: GABAPENTIN 300 MG CAP PO SCH (23:58)
[2018-05-12 03:41] LABS: Cholesterol 137 mg/dL (<200); Triglycerides 68 mg/dL (<150)
[2018-05-12 03:51] LABS: Creatine Kinase 40 U/L (30-135)
[2018-05-12 04:04] LABS: Creatine Kinase MB 0.6 ng/mL (0.0-2.4); Troponin I <0.012 ng/mL (0.000-0.034)
[2018-05-12 05:01] LABS: HDL Cholesterol 51 mg/dL (40-60); LDL Cholesterol,Calculated 72 mg/dL (0-99)
[2018-05-12] MEDS: HYDROcodone/APAP 5-325MG 1 EACH TAB PO PRN ×3 (05:54→16:19)
[2018-05-12] MEDS ORDERED: LEVOTHYROXINE 50 MCG TAB PO SCH (06:30)
[2018-05-12] MEDS ORDERED: SYMBICORT 80-4.5 MCG INHALER INHALATION SCH (08:00)
[2018-05-12] MEDS: GABAPENTIN 300 MG CAP PO SCH ×2 (09:00→16:05)
[2018-05-12] MEDS ORDERED: LOSARTAN 50 MG TAB PO SCH (09:00)
[2018-05-12] MEDS ORDERED: ATORVASTATIN 10 MG TAB PO SCH (09:00)
[2018-05-12] MEDS ORDERED: FUROSEMIDE 40 MG TAB PO SCH (09:00)
[2018-05-12] MEDS ORDERED: amLODIPine 5 MG TAB PO SCH (09:00)
[2018-05-12] MEDS: POTASSIUM CHLORIDE ER 20 MEQ TAB.ER PO SCH (09:00)
[2018-05-12] MEDS ORDERED: ASPIRIN 325 MG TAB PO SCH (09:00)
[2018-05-12] MEDS: BACLOFEN 10 MG TAB PO SCH (09:01)
[2018-05-12] MEDS: cloNIDine HCL 0.1 MG TAB PO SCH ×2 (09:01→16:05)
[2018-05-12] MEDS: levETIRAcetam 500 MG TAB PO SCH (09:06)
--- NOTE | 2018-05-12 10:42 | P.CRDCN ---
History of Present Illness History of present illness: This is a pleasant 57-year-old female past medical history significant for hypertension, dyslipidemia, obstructive sleep apnea and seizure disorder. She follows with Dr. Alicea in the office. We have been asked to see her in consultation for chest pain. She describes feeling a sharp pain in the mid-sternal region over the last week intermittently. She cannot specify any aggravating or alleviating factors. There is some radiation down the left arm at times with no radiation to the neck, back or jaw. She denies shortness of breath, dizziness or palpitations. She states she has been diagnosed with sleep apnea but has not gotten a CPAP yet and her sister has been telling her she is stopping breathing at night multiple times. She underwent cardiac catheterization 2014 secondary to an abnormal nuclear stress test which revealed the RCA has mild disease distally 20-30%, left main angiographically normal with no obstructive disease, circumflex nondominant vessel with no significant disease and LAD with 30-40% disease noted in the midportion and diagonal branch with 30-40% disease noted in the midportion. EKG reveals sinus mechanism with non-specific ST abnormalities. No acute changes when compared to previous EKG's. Chest xray negative for an acute cardiopulmonary process. Laboratory data reviewed, WBC 11.9, hemoglobin 12.2, platelets 377, d-dimer 0.37 , sodium 141, potassium 3.9, magnesium 2.0, creatinine 0.79, cardiac enzymes negative 3, LDL 72. Current cardiac medications include losartan 50 mg daily, Lasix 40 mg twice a day, lovastatin 40 mg daily, amlodipine 5 mg daily and clonidine 0.2 mg 3 times a day. At the time of my exam: CONSTITUTIONAL: Denies fever. Denies chills. EYES: Denies blurred vision. Denies vision changes. Denies eye pain. EARS, NOSE, MOUTH & THROAT: Denies headache. Denies sore throat. Denies ear pain. CARDIOVASCULAR: Denies chest pain. Denies shortness of breath. Denies orthopnea. Denies PND. Denies palpitations. RESPIRATORY: Denies cough. GASTROINTESTINAL: Denies abdominal pain. Denies diarrhea. Denies constipation. Denies nausea. Denies vomiting. MUSCULOSKELETAL: Denies myalgias. INTEGUMENTARY: Denies pruitis. Denies rash. NEUROLOGIC: Denies numbness. Denies tingling. Denies weakness. PSYCHIATRIC: Denies anxiety. Denies depression. ENDOCRINE: Denies fatigue. Denies weight change. Denies polydipsia. Denies polyurina. GENITOURINARY: Denies burning, hematuria or urgency with micturation. HEMATOLOGIC: Denies history of anemia. Denies bleeding. Blood pressure 116/72 heart rate 66 afebrile maintaining oxygen saturation on nasal cannula GENERAL: This is a 57-year-old male in no apparent distress at the time of my examination. HEENT: Head is atraumatic, normocephalic. Pupils are equal, round. Sclerae anicteric. Conjunctivae are clear. Mucous membranes of the mouth are moist. Neck is supple. There is no jugular venous distention. No carotid bruit is heard. LUNGS: Clear to auscultation no wheezes, rales or rhonchi. No chest wall tenderness is noted on palpation or with deep breathing. HEART: Regular rate and rhythm without murmurs, rubs or gallops. S1 and S2 heard. ABDOMEN: Soft, nontender. Bowel sounds are heard. No organomegaly noted. EXTREMITIES: No evidence of peripheral edema and no calf tenderness noted. VASCULAR: Radial and dorsalis pedis pulses palpated, no evidence of clubbing. NEUROLOGIC: Patient is awake, alert and oriented x3. ASSESSMENT Chest pain, atypical. An acute coronary event has been ruled out with no EKG evideince of ischemia and negative cardiac enzymes. Hypertension Dyslipidemia Obstructive sleep apnea with no CPAP at home Morbid obesity, BMI 46 Mild non-obstructive CAD on cath 2016. PLAN An acute coronary event has been ruled out. Obtain 2D echocardiogram and doppler study to assess cardiac structure and function. Stable from a cardiac perspective. Increase activity and ambulation in the halls. May be discharged home and follow up with Dr. Alicea in the office for outpatient stress testing. Thank you kindly for this consultation. Nurse Practitioner note has been reviewed, I agree with a documented findings and plan of care. Patient was seen and examined. Past Medical History Past Medical History: Chest Pain / Angina, Heart Failure, Hyperlipidemia, Hypertension, Osteoarthritis (OA), Pneumonia, Seizure Disorder, Skin Disorder, Sleep Apnea/CPAP/BIPAP, Thyroid Disorder Additional Past Medical History / Comment(s): LAST KNOWN SEIZURE a couple months ago. developementally disabled, restless leg syndrme, cervical and back pain with pain down bilateral legs, leg weakness, occasional numbness and tingling to bilateral hands and feet, no cpap used currently, abdominal pain. has a bowel movement-(diarrhea)- right after eating, states has had recent falls , persistant itching-cause unknown, History of Any Multi-Drug Resistant Organisms: None Reported Past Surgical History: Adenoidectomy, Cholecystectomy, Heart Catheterization, Hysterectomy, Tonsillectomy Additional Past Surgical History / Comment(s): cervical surgery/cage, Past Anesthesia/Blood Transfusion Reactions: No Reported Reaction Date of Last Stent Placement:: 06/03/2014 Smoking Status: Never smoker - Past Family History Father Family Medical History: Diabetes Mellitus, Renal Disease Additional Family Medical History / Comment(s): Father had IDDM. He at the age of 73 yrs. Mother Family Medical History: No Reported History Additional Family Medical History / Comment(s): . Medications and Allergies Home Medications Medication Instructions Recorded Confirmed Type rOPINIRole HCL 5 mg PO BID 02/04/16 05/11/18 History Furosemide [Lasix] 40 mg PO BID 10/01/17 05/11/18 History Losartan [Cozaar] 50 mg PO DAILY 10/01/17 05/11/18 History Baclofen [Lioresal] 20 mg PO BID 05/11/18 05/11/18 History Fluticasone/Vilanterol [Breo 1 inhalation PO Q24HR 05/11/18 05/11/18 History Ellipta 100-25 Mcg Inhaler] Fluticasone/Vilanterol [Breo 1 puff INHALATION RT-DAILY 05/11/18 05/11/18 History Ellipta 100-25 Mcg Inhaler] Gabapentin [Neurontin] 300 mg PO TID 05/11/18 05/11/18 History Levothyroxine Sodium [Synthroid] 125 mcg PO DAILY 05/11/18 05/11/18 History Lovastatin [Altoprev] 40 mg PO DAILY 05/11/18 05/11/18 History Montelukast Sodium [Singulair] 10 mg PO HS 05/11/18 05/11/18 History Potassium Chloride [Klor-Con 20] 20 meq PO DAILY 05/11/18 05/11/18 History amLODIPine [Norvasc] 5 mg PO DAILY 05/11/18 05/11/18 History cloNIDine HCL [Catapres] 0.2 mg PO TID 05/11/18 05/11/18 History levETIRAcetam [Keppra] 1,000 mg PO Q12HR 05/11/18 05/11/18 History Allergies Allergy/AdvReac Type Severity Reaction Status Date / Time adhesive Allergy Rash/Hives Verified 05/11/18 14:45 buspirone [From BuSpar] Allergy Itching Verified 05/11/18 21:37 divalproex sodium Allergy Rash/Hives Verified 05/11/18 14:45 [From Depakote] ibuprofen [From Motrin] Allergy Rash/Hives Verified 05/11/18 14:45 latex Allergy Rash/Hives Verified 05/11/18 14:45 Penicillins Allergy Rash/Hives Verified 05/11/18 14:45 topiramate [From Topamax] Allergy Swelling Verified 05/11/18 14:45 Physical Exam Vitals: Vital Signs Temp Pulse Pulse Resp BP BP Pulse Ox 05/12/18 07:15 97.6 F 63 18 116/72 99 05/12/18 04:00 97.6 F 53 L 18 96/63 99 05/12/18 03:08 18 05/12/18 00:00 18 05/11/18 23:51 97.5 F L 65 18 86/54 99 05/11/18 20:29 97.6 F 64 18 138/82 100 05/11/18 20:00 18 05/11/18 19:00 57 L 128/81 100 05/11/18 18:00 52 L 130/88 100 05/11/18 17:00 60 102/71 100 05/11/18 16:40 56 L 102/71 100 05/11/18 16:30 56 L 101/69 100 05/11/18 15:40 82/59 05/11/18 15:30 62 90/59 98 05/11/18 15:00 66 98/63 97 05/11/18 14:09 98.4 F 84 18 111/71 98 Intake and Output 05/11/18 05/12/18 05/12/18 22:59 06:59 14:59 Other: # Voids 1 1 Weight 132 kg Results 05/11/18 14:45 05/11/18 14:45 Cardiac Enzymes 05/11/18 05/11/18 05/11/18 Range/Units 14:45 14:45 20:55 AST 17 (14-36) U/L CK-MB (CK-2) 1.2 0.8 (0.0-2.4) ng/mL Troponin I <0.012 <0.012 (0.000-0.034) ng/mL 05/12/18 Range/Units 03:00 AST (14-36) U/L CK-MB (CK-2) 0.6 (0.0-2.4) ng/mL Troponin I <0.012 (0.000-0.034) ng/mL Coagulation 05/11/18 Range/Units 14:45 PT 10.1 (9.0-12.0) sec APTT 24.5 (22.0-30.0) sec Lipids 05/12/18 Range/Units 03:00 Triglycerides 68 (<150) mg/dL Cholesterol 137 (<200) mg/dL HDL Cholesterol 51 (40-60) mg/dL CBC 05/11/18 Range/Units 14:45 WBC 11.9 H (3.8-10.6) k/uL RBC 4.25 (3.80-5.40) m/uL Hgb 12.2 (11.4-16.0) gm/dL Hct 37.6 (34.0-46.0) % Plt Count 377 (150-450) k/uL Comprehensive Metabolic Panel 05/11/18 Range/Units 14:45 Sodium 141 (137-145) mmol/L Potassium 3.9 (3.5-5.1) mmol/L Chloride 106 (98-107) mmol/L Carbon Dioxide 25 (22-30) mmol/L BUN 22 H (7-17) mg/dL Creatinine 0.79 (0.52-1.04) mg/dL Glucose 90 (74-99) mg/dL Calcium 9.5 (8.4-10.2) mg/dL AST 17 (14-36) U/L ALT 20 (9-52) U/L Alkaline Phosphatase 97 (38-126) U/L Total Protein 6.8 (6.3-8.2) g/dL Albumin 4.0 (3.5-5.0) g/dL Current Medications Generic Name Dose Route Start Last Admin Trade Name Freq PRN Reason Stop Dose Admin Hydrocodone Bitart/Acetaminophen 1 each 05/11/18 17:39 05/12/18 05:54 [place] 5-325 PO 1 each Q4HR PRN Administration Pain Amlodipine Besylate 5 mg 05/12/18 09:00 Norvasc PO DAILY PENDING SALE TO [facility] Aspirin 325 mg 05/12/18 09:00 Aspirin PO DAILY PENDING SALE TO [facility] Atorvastatin Calcium 10 mg 05/12/18 09:00 Lipitor PO DAILY PENDING SALE TO [facility] Baclofen 20 mg 05/11/18 22:15 05/11/18 23:07 Lioresal PO 20 mg BID BERTHA Administration Budesonide/Formoterol Fumarate 2 puff 05/12/18 08:00 05/12/18 07:50 Symbicort 80-4.5 Mcg Inhaler INHALATION 2 puff RT-BID BERTHA Administration Clonidine 0.2 mg 05/11/18 22:15 05/11/18 23:07 Catapres PO 0.2 mg TID BERTHA Administration Furosemide 40 mg 05/12/18 09:00 Lasix PO BID PENDING SALE TO [facility] Gabapentin 300 mg 05/11/18 23:30 05/11/18 23:58 Neurontin PO 300 mg TID BERTHA Administration Levetiracetam 1,000 mg 05/11/18 22:15 05/11/18 23:07 Keppra PO 1,000 mg Q12HR BERTHA Administration Levothyroxine Sodium 125 mcg 05/12/18 06:30 05/12/18 05:54 Synthroid PO 125 mcg DAILY@0630 BERTHA Administration Losartan Potassium 50 mg 05/12/18 09:00 Cozaar PO DAILY PENDING SALE TO [facility] Montelukast Sodium 10 mg 05/11/18 22:15 05/11/18 23:07 Singulair PO 10 mg HS BERTHA Administration Nitroglycerin 0.4 mg 05/11/18 16:48 Nitrostat SUBLINGUAL Q5M PRN Chest Pain Potassium Chloride 20 meq 05/11/18 22:15 05/11/18 23:07 K-Dur 20 PO 20 meq DAILY BERTHA Administration Ropinirole HCl 5 mg 05/11/18 22:15 05/11/18 23:06 Requip PO 5 mg BID BERTHA Administration Intake and Output 05/11/18 05/12/18 05/12/18 22:59 06:59 14:59 Other: # Voids 1 1 Weight 132 kg 05/11/18 14:45 05/11/18 14:45
[2018-05-12 11:54] VITALS: BP 105/67; PULSE 72; TEMP 98.3
--- NOTE | 2018-05-12 11:57 | ECHOF ---
Referral Reason: MEASUREMENTS -------- HEIGHT: 170.2 cm WEIGHT: 132.0 kg BP: RVIDd: 2.3 cm (< 3.3) IVSd: 1.2 cm (0.6 - 1.1) LVIDd: 4.7 cm (3.9 - 5.3) LVPWd: 1.5 cm (0.6 - 1.1) IVSs: 1.8 cm LVIDs: 2.9 cm LVPWs: 2.0 cm LAESV Index (A-L): 22.33 ml/m Ao Diam: 3.4 cm (2.0 - 3.7) AV Cusp: 2.2 cm (1.5 - 2.6) LA Diam: 3.0 cm (2.7 - 3.8) MV EXCURSION: 20.824 mm (> 18.000) MV EF SLOPE: 118 mm/s (70 - 150) EPSS: 0.3 cm MV E Anshu: 0.88 m/s MV DecT: 304 ms MV A Anshu: 0.96 m/s MV E/A Ratio: 0.92 RAP: 15.00 mmHg RVSP: 30.60 mmHg FINDINGS -------- Sinus rhythm. This was a technically good study. The left ventricular size is normal. There is mild concentric left ventricular hypertrophy. Overa ll left ventricular systolic function is normal with, an EF between 55 - 60 %. The right ventricle is normal in size and function. The left atrium is normal in size. The right atrium is normal in size. The aortic valve is trileaflet and appears structurally normal. The mitral valve leaflets are mildly thickened. Mild mitral regurgitation is present. Mild tricuspid regurgitation present. The right ventricular systolic pressure, as measured by Doppl er, is 30.60mmHg. Pulmonic valve appears structurally normal. The aortic root size is normal. The inferior vena cava is mildly dilated. There is a trivial pericardial effusion present. CONCLUSIONS -------- 1. Sinus rhythm. 2. This was a technically good study. 3. The left ventricular size is normal. 4. There is mild concentric left ventricular hypertrophy. 5. Overall left ventricular systolic function is normal with, an EF between 55 - 60 %. 6. The right ventricle is normal in size and function. 7. The left atrium is normal in size. 8. The right atrium is normal in size. 9. The aortic valve is trileaflet and appears structurally normal. 10. The mitral valve leaflets are mildly thickened. 11. Mild mitral regurgitation is present. 12. Mild tricuspid regurgitation present. 13. The right ventricular systolic pressure, as measured by Doppler, is 30.60mmHg. 14. Pulmonic valve appears structurally normal. 15. The aortic root size is normal. 16. The inferior vena cava is mildly dilated. 17. There is a trivial pericardial effusion present. AUTOMOTIVE MAINTENANCE TECHNICIAN: Liliana Tena RDCS
--- NOTE | 2018-05-23 18:31 | HP ---
HISTORY AND PHYSICAL CHIEF COMPLAINT: 57-year-old white female admitted with atypical chest pain. History of heart failure, dyslipidemia, hypertension, sleep apnea, came with chest pain, one time a week, pressure in her chest, down her left arm, comes and goes. Denies any previous heart attack or diabetes, never had a stress test before. MEDICATIONS: See list. ALLERGIES: See list. PAST MEDICAL HISTORY: Hypertension, pneumonia, seizure disorder, sleep apnea, thyroid disorder, lymphedema, osteoarthritis, atypical chest pain. Restless legs syndrome. PAST SURGICAL HISTORY: Appendectomy, cholecystectomy, heart catheterization, hysterectomy, tonsillectomy, cervical surgery. FAMILY HISTORY: Father diabetes mellitus, renal failure. PHYSICAL EXAMINATION: Temp 98.4, pulse 60s to 80s, blood pressure is 90-111 over 70s to 60s, O2 98. Cardiovascular S1-S2. Lungs clear. GI soft. Hematology negative Homans. Psych fair mood and affect. Endocrine: Lymphadenopathy. Bilateral legs, lymphedema. ASSESSMENT: 1. Atypical chest pain and lymphedema type changes. 2. Generalized weakness. 3. Osteoarthritis. 4. Near syncope. 5. Possible seizure disorder. Workup for seizures and chest pain. Cardiology consult. MMODL / IJN: [id number] /
--- NOTE | 2018-05-29 09:25 | DS ---
DISCHARGE SUMMARY DATE OF ADMISSION: 05/11/2018 DATE OF DISCHARGE: 05/12/2018. CONDITION: Stable. PROGNOSIS: Guarded. Ambulate as tolerated. Follow up in the office in a day or 2. DISCHARGE MEDICATIONS: 1. Robinul 5 mg b.i.d. 2. Cozaar 50 daily. 3. Lasix 40 b.i.d. 4. Catapres 0.2 mg t.i.d. 5. Fluticasone nasal spray. 6. Norvasc 5 mg daily. 7. Klor-Con 20 mEq daily. 8. Singulair 10 mg daily. 9. Lovastatin 40 mg daily. 10.Levothyroxine 125 mcg daily. 11.Keppra 1000 b.i.d. 12.Lioresal 20 mg b.i.d. 13.Breo Ellipta 1 puff daily. 14.Neurontin 300 t.i.d. CONDITION: Stable. PROGNOSIS: Guarded. Ambulate as tolerated. DISCHARGE DIAGNOSES: 1. Generalized weakness. 2. Orthostatic hypotension. 3. Hypertension, general. 4. Generalized weakness. 5. Lymphedema type changes. 6. Asthma. 7. Chronic obstructive pulmonary disease. The patient was admitted to the hospital. Echo, cardiology consult for chest pain were done. They were cleared. The patient was cleared by Cardiology for discharge to follow up as outpatient and she will need PT, OT and rehab center as she is generalized weak. BILL / KALI: [id number] /
== END 2018-05-12 17:46 | disposition home or self-care (01) ==
LOC: EC 14:05 → 1SOBS 16:48
PROVIDERS: ADMIT Family Medicine; ATTEND Family Medicine
DX: R07.89 Other chest pain (principal); I95.1 Orthostatic hypotension; I89.0 Lymphedema, not elsewhere classified; I11.0 Hypertensive heart disease with heart failure; I50.9 Heart failure, unspecified; J44.9 Chronic obstructive pulmonary disease, unspecified; E78.5 Hyperlipidemia, unspecified; I25.10 Atherosclerotic heart disease of native coronary artery without angina pectoris; R53.1 Weakness; R55 Syncope and collapse; G47.33 Obstructive sleep apnea (adult) (pediatric); F32.9 Major depressive disorder, single episode, unspecified; E66.01 Morbid (severe) obesity due to excess calories; Z68.42 Body mass index [BMI] 45.0-49.9, adult; E07.9 Disorder of thyroid, unspecified; M19.90 Unspecified osteoarthritis, unspecified site; M54.2 Cervicalgia; M54.9 Dorsalgia, unspecified; G25.81 Restless legs syndrome; G40.909 Epilepsy, unspecified, not intractable, without status epilepticus; F89 Unspecified disorder of psychological development; Z79.51 Long term (current) use of inhaled steroids; Z79.890 Hormone replacement therapy; Z79.899 Other long term (current) drug therapy; Z88.0 Allergy status to penicillin; Z88.8 Allergy status to other drugs, medicaments and biological substances; Z91.040 Latex allergy status; Z91.048 Other nonmedicinal substance allergy status; Z87.2 Personal history of diseases of the skin and subcutaneous tissue; Z87.01 Personal history of pneumonia (recurrent); Z90.710 Acquired absence of both cervix and uterus; Z90.49 Acquired absence of other specified parts of digestive tract; Z84.1 Family history of disorders of kidney and ureter; Z83.3 Family history of diabetes mellitus; Z91.81 History of falling
CPT/HCPCS: 96360; 99285; 36415; 94640; 93005; 93306; 85379; 83880; 80061; 80053; 82150; 82550 ×2; 82553 ×2; 83690; 83735; 84484 ×2; 85025; 85610; 85730; 71046; G0378 ×2

== ENCOUNTER → 2018-06-07 | Outpatient (CLI) | payer MEDICARE, OTHER ==
[2018-06-07 14:58] VITALS: BMI 46.0
== END | disposition home or self-care (01) ==
LOC: BARWHC3 09:24
PROVIDERS: ATTEND Surgery
DX: E66.01 Morbid (severe) obesity due to excess calories (principal); Z68.42 Body mass index [BMI] 45.0-49.9, adult
CPT/HCPCS: 97804

== ENCOUNTER → 2018-06-14 | Outpatient (CLI) | payer MEDICARE, OTHER ==
[2018-06-14 14:07] VITALS: BP 167/121; PULSE 73; RESP 16; TEMP 97.9; BMI 45.1
--- NOTE | 2018-06-21 16:12 | P.HPBAR ---
Bariatric H&P - History & Physicial H&P Date: 06/14/18 History & Physicial: Visit/CC: Working on criteria Patient initial contact: Initial weight: 137.438 kg Initial weight in pounds: 303.00 Height: 5 ft 7 in Initial BMI: 47.4 Last weight: Current weight: 130.635 kg Current weight in pounds: 288.00 Current BMI: 45.1 [place] body weight (based on NIH guidelines): 61.235 kg Excess body weight loss: 8.9% The patient is a 57 year-old F who presents for Bariatric Assessment. Patient presents today for pre-surgical consultation. She has had lifetime problems obesity. Her BMI is 45. She is currently working on her preArsaniszation requirements. Past Medical History Past Medical History: Chest Pain / Angina, Heart Failure, Hyperlipidemia, Hypertension, Osteoarthritis (OA), Pneumonia, Seizure Disorder, Skin Disorder, Sleep Apnea/CPAP/BIPAP, Thyroid Disorder Additional Past Medical History / Comment(s): LAST KNOWN SEIZURE a couple months ago. developementally disabled, restless leg syndrme, cervical and back pain with pain down bilateral legs, leg weakness, occasional numbness and tingling to bilateral hands and feet, no cpap used currently, abdominal pain. has a bowel movement-(diarrhea)- right after eating, states has had recent falls , persistant itching-cause unknown, History of Any Multi-Drug Resistant Organisms: None Reported Past Surgical History: Adenoidectomy, Cholecystectomy, Heart Catheterization, Hysterectomy, Tonsillectomy Additional Past Surgical History / Comment(s): cervical surgery/cage, Past Anesthesia/Blood Transfusion Reactions: No Reported Reaction Date of Last Stent Placement:: 06/03/2014 Past Psychological History: Depression Additional Psychological History / Comment(s): Pt states she currently resides with her sister. She is mildly developmentally delayed. She states she has had falls and that her sister's home is too small for her to be able to use any assistive devices. states she signs own consents Smoking Status: Never smoker Past Alcohol Use History: None Reported Additional Past Alcohol Use History / Comment(s): . Past Drug Use History: None Reported - Past Family History Father Family Medical History: Diabetes Mellitus, Renal Disease Additional Family Medical History / Comment(s): Father had IDDM. He at the age of 73 yrs. Mother Family Medical History: No Reported History Additional Family Medical History / Comment(s): . Surgical - Exam Vital Signs Temp Pulse Resp BP 97.9 F 73 16 167/121 06/14/18 14:03 06/14/18 14:03 06/14/18 14:03 06/14/18 14:03 - General well developed, well nourished, no distress - Eyes PERRL - ENT normal pinna - Neck no masses - Respiratory normal expansion - Cardiovascular Rhythm: regular - Abdomen Abdomen: soft, non tender Bariatric Assessment & Plan Plan: Patient is morbidly obese. Her BMI is 45. She is seeing her family doctor for workup of her hypertension. The patient will follow-up once she has her insurance authorization requirements met. Bariatric Checklist Checklist: Plan: Checklist: EGD: 1. Hiatal hernia: 2. H. Pylori: HgbA1c: Vitamin D: Smoking: Never smoker Primary care physician referral: [place] Psychiatry clearance: Cardiology clearance: Sleep study: Diet journal: VTE risk score: VTE risk level: Rehab needs at discharge:
== END | disposition home or self-care (01) ==
LOC: BARWHC3 11:08
PROVIDERS: ATTEND Surgery
DX: E66.01 Morbid (severe) obesity due to excess calories (principal); I10 Essential (primary) hypertension; Z68.42 Body mass index [BMI] 45.0-49.9, adult; Z90.89 Acquired absence of other organs; Z90.49 Acquired absence of other specified parts of digestive tract; Z90.710 Acquired absence of both cervix and uterus
CPT/HCPCS: 99211

== ENCOUNTER 2018-06-28 12:08 | Emergency (ER) | payer MEDICARE, OTHER ==
[2018-06-28 12:28] VITALS: RESP 16
--- NOTE | 2018-06-28 12:45 | ED ---
Weakness HPI - General Chief complaint: Weakness Stated complaint: weakness Time Seen by Provider: 06/28/18 12:27 Source: patient, RN notes reviewed Mode of arrival: ambulatory Limitations: no limitations - History of Present Illness Initial comments: 57-year-old female presents emergency Department with chief complaint of generalized weakness 2 weeks. Patient states that this started after seen her PCP. Patient states that she feels like she has more swelling than usual. Patient states is also painful to urinate at times. Patient denies fever, chills. Patient denies chest pain though she states that she has some intermittent shortness of breath. Patient states that she is not discussed her symptoms with her PCP though she did admit that she was seen at [facility] yesterday with no acute findings. have an MRI of her brain this morning secondary to "memory issues" . Patient states that since she was already here for MRI that she felt she should this be seen in emergency department. - Related Data Home Medications Medication Instructions Recorded Confirmed rOPINIRole HCL 5 mg PO BID 02/04/16 06/28/18 Gabapentin [Neurontin] 300 mg PO TID 05/11/18 06/28/18 Levothyroxine Sodium [Synthroid] 125 mcg PO DAILY 05/11/18 06/28/18 Potassium Chloride [Klor-Con 20] 20 meq PO DAILY 05/11/18 06/28/18 Aspirin EC [Ecotrin Low Dose] 81 mg PO DAILY 06/28/18 06/28/18 Doxycycline Monohydrate [Monodox] 100 mg PO Q12HR 06/28/18 06/28/18 Furosemide [Lasix] 20 mg PO BID 06/28/18 06/28/18 Loratadine [Claritin] 10 mg PO DAILY 06/28/18 06/28/18 Meclizine [Antivert] 25 mg PO TID 06/28/18 06/28/18 amLODIPine [Norvasc] 10 mg PO DAILY 06/28/18 06/28/18 cloNIDine HCL [Catapres] 0.2 mg PO TID 06/28/18 06/28/18 tiZANidine [Zanaflex] 2 mg PO Q8HR PRN 06/28/18 06/28/18 Allergies Allergy/AdvReac Type Severity Reaction Status Date / Time adhesive Allergy Rash/Hives Verified 06/28/18 12:12 buspirone [From BuSpar] Allergy Itching Verified 06/28/18 12:12 divalproex sodium Allergy Rash/Hives Verified 06/28/18 12:12 [From Depakote] ibuprofen [From Motrin] Allergy Rash/Hives Verified 06/28/18 12:12 latex Allergy Rash/Hives Verified 06/28/18 12:12 Penicillins Allergy Rash/Hives Verified 06/28/18 12:12 topiramate [From Topamax] Allergy Swelling Verified 06/28/18 12:12 Review of Systems ROS Statement: Those systems with pertinent positive or pertinent negative responses have been documented in the HPI. ROS Other: All systems not noted in ROS Statement are negative. Past Medical History Past Medical History: Chest Pain / Angina, Heart Failure, Hyperlipidemia, Hypertension, Osteoarthritis (OA), Pneumonia, Seizure Disorder, Skin Disorder, Sleep Apnea/CPAP/BIPAP, Thyroid Disorder Additional Past Medical History / Comment(s): LAST KNOWN SEIZURE a couple months ago. developementally disabled, restless leg syndrme, cervical and back pain with pain down bilateral legs, leg weakness, occasional numbness and tingling to bilateral hands and feet, no cpap used currently, abdominal pain. has a bowel movement-(diarrhea)- right after eating, states has had recent falls , persistant itching-cause unknown, History of Any Multi-Drug Resistant Organisms: None Reported Past Surgical History: Adenoidectomy, Cholecystectomy, Heart Catheterization, Hysterectomy, Tonsillectomy Additional Past Surgical History / Comment(s): cervical surgery/cage, Past Anesthesia/Blood Transfusion Reactions: No Reported Reaction Date of Last Stent Placement:: 06/03/2014 Past Psychological History: Depression Smoking Status: Never smoker Past Alcohol Use History: None Reported Past Drug Use History: None Reported - Past Family History Father Family Medical History: Diabetes Mellitus, Renal Disease Additional Family Medical History / Comment(s): Father had IDDM. He at the age of 73 yrs. Mother Family Medical History: No Reported History Additional Family Medical History / Comment(s): . General Exam Limitations: no limitations General appearance: alert, in no apparent distress Head exam: Present: atraumatic, normocephalic, normal inspection Eye exam: Present: normal appearance, PERRL, EOMI. Absent: scleral icterus, conjunctival injection, periorbital swelling ENT exam: Present: normal exam, normal oropharynx, mucous membranes moist Neck exam: Present: normal inspection, full ROM. Absent: tenderness, meningismus, lymphadenopathy Respiratory exam: Present: normal lung sounds bilaterally. Absent: respiratory distress, wheezes, rales, rhonchi, stridor Cardiovascular Exam: Present: regular rate, normal rhythm, normal heart sounds. Absent: systolic murmur, diastolic murmur, rubs, gallop, clicks GI/Abdominal exam: Present: soft, normal bowel sounds. Absent: distended, tenderness, guarding, rebound, rigid Extremities exam: Present: pedal edema Neurological exam: Present: alert, oriented X3, CN II-XII intact Skin exam: Present: warm, dry, intact, normal color. Absent: rash Course Vital Signs 06/28/18 06/28/18 06/28/18 12:12 12:27 13:32 Temperature 97.5 F L 97.1 F L Pulse Rate 62 66 Respiratory 18 16 16 Rate Blood Pressure 124/83 108/60 O2 Sat by Pulse 100 98 Oximetry EKG Findings - EKG Comments: EKG Findings:: EKG performed at 12:53 normal sinus rhythm with rate 61. CT 186 QRS 90 QT /QTC 424/426 Medical Decision Making - Medical Decision Making 57-year-old female presented for generalized weakness with no focal weakness. Patient had lab work, chest x-ray, urinalysis which is unremarkable. Patient went of leg swelling which she does have mild leg swelling. Patient will be given a dose of Lasix. Patient will be advised to follow-up with PCP and return for any worsening symptoms. - Lab Data Result diagrams: 06/28/18 12:40 06/28/18 12:40 Lab Results 06/28/18 06/28/18 06/28/18 Range/Units 12:40 12:40 12:40 WBC 10.3 (3.8-10.6) k/uL RBC 4.27 (3.80-5.40) m/uL Hgb 12.6 (11.4-16.0) gm/dL Hct 39.4 (34.0-46.0) % MCV 92.4 (80.0-100.0) fL MCH 29.5 (25.0-35.0) pg MCHC 31.9 (31.0-37.0) g/dL RDW 14.4 (11.5-15.5) % Plt Count 330 (150-450) k/uL Neutrophils % 72 % Lymphocytes % 19 % Monocytes % 4 % Eosinophils % 2 % Basophils % 1 % Neutrophils # 7.4 (1.3-7.7) k/uL Lymphocytes # 2.0 (1.0-4.8) k/uL Monocytes # 0.5 (0-1.0) k/uL Eosinophils # 0.2 (0-0.7) k/uL Basophils # 0.1 (0-0.2) k/uL PT (9.0-12.0) sec INR (<1.2) APTT (22.0-30.0) sec Sodium 141 (137-145) mmol/L Potassium 4.2 (3.5-5.1) mmol/L Chloride 104 (98-107) mmol/L Carbon Dioxide 29 (22-30) mmol/L Anion Gap 8 mmol/L BUN 22 H (7-17) mg/dL Creatinine 0.67 (0.52-1.04) mg/dL Est GFR (CKD-EPI)AfAm >90 (>60 ml/min/1.73 sqM) Est GFR (CKD-EPI)NonAf >90 (>60 ml/min/1.73 sqM) Glucose 107 H (74-99) mg/dL Calcium 9.8 (8.4-10.2) mg/dL Phosphorus 4.0 (2.5-4.5) mg/dL Magnesium 2.1 (1.6-2.3) mg/dL Total Bilirubin 0.4 (0.2-1.3) mg/dL AST 12 L (14-36) U/L ALT 28 (9-52) U/L Alkaline Phosphatase 98 (38-126) U/L Creatine Kinase 46 (30-135) U/L Troponin I (0.000-0.034) ng/mL NT-Pro-B Natriuret Pep 42 pg/mL Total Protein 7.1 (6.3-8.2) g/dL Albumin 4.1 (3.5-5.0) g/dL Urine Color Urine Appearance (Clear) Urine pH (5.0-8.0) Ur Specific [place] (1.001-1.035) Urine Protein (Negative) Urine Glucose (UA) (Negative) Urine Ketones (Negative) Urine Blood (Negative) Urine Nitrite (Negative) Urine Bilirubin (Negative) Urine Urobilinogen (<2.0) mg/dL Ur Leukocyte Esterase (Negative) 06/28/18 06/28/18 06/28/18 Range/Units 12:40 12:40 13:13 WBC (3.8-10.6) k/uL RBC (3.80-5.40) m/uL Hgb (11.4-16.0) gm/dL Hct (34.0-46.0) % MCV (80.0-100.0) fL MCH (25.0-35.0) pg MCHC (31.0-37.0) g/dL RDW (11.5-15.5) % Plt Count (150-450) k/uL Neutrophils % % Lymphocytes % % Monocytes % % Eosinophils % % Basophils % % Neutrophils # (1.3-7.7) k/uL Lymphocytes # (1.0-4.8) k/uL Monocytes # (0-1.0) k/uL Eosinophils # (0-0.7) k/uL Basophils # (0-0.2) k/uL PT 10.1 (9.0-12.0) sec INR 0.9 (<1.2) APTT 25.6 (22.0-30.0) sec Sodium (137-145) mmol/L Potassium (3.5-5.1) mmol/L Chloride (98-107) mmol/L Carbon Dioxide (22-30) mmol/L Anion Gap mmol/L BUN (7-17) mg/dL Creatinine (0.52-1.04) mg/dL Est GFR (CKD-EPI)AfAm (>60 ml/min/1.73 sqM) Est GFR (CKD-EPI)NonAf (>60 ml/min/1.73 sqM) Glucose (74-99) mg/dL Calcium (8.4-10.2) mg/dL Phosphorus (2.5-4.5) mg/dL Magnesium (1.6-2.3) mg/dL Total Bilirubin (0.2-1.3) mg/dL AST (14-36) U/L ALT (9-52) U/L Alkaline Phosphatase (38-126) U/L Creatine Kinase (30-135) U/L Troponin I <0.012 (0.000-0.034) ng/mL NT-Pro-B Natriuret Pep pg/mL Total Protein (6.3-8.2) g/dL Albumin (3.5-5.0) g/dL Urine Color Yellow Urine Appearance Clear (Clear) Urine pH 5.5 (5.0-8.0) Ur Specific [place] 1.025 (1.001-1.035) Urine Protein Negative (Negative) Urine Glucose (UA) Negative (Negative) Urine Ketones Negative (Negative) Urine Blood Negative (Negative) Urine Nitrite Negative (Negative) Urine Bilirubin Negative (Negative) Urine Urobilinogen <2.0 (<2.0) mg/dL Ur Leukocyte Esterase Negative (Negative) Disposition Clinical Impression: Weakness, Fatigue, Leg swelling Disposition: HOME SELF-CARE Condition: Stable Instructions (If sedation given, give patient instructions): Weakness (ED) Additional Instructions: Please return to the Emergency Department if symptoms worsen or any other concerns. Is patient prescribed a controlled substance at d/c from ED?: No Referrals: Júnior Hancock MD [Primary Care Provider] - 1-2 days Time of Disposition: 14:43
[2018-06-28 13:10] LABS: Basophils # (A) 0.1 k/uL (0-0.2); Basophils % (A) 1 %; Eosinophils # (A) 0.2 k/uL (0-0.7); Eosinophils % (A) 2 %; HCT 39.4 % (34.0-46.0); HGB 12.6 gm/dL (11.4-16.0); Lymphocytes % (A) 19 %; MCH 29.5 pg (25.0-35.0); MCHC 31.9 g/dL (31.0-37.0); MCV 92.4 fL (80.0-100.0); Mean Platelet Volume 6.6; Monocytes # (A) 0.5 k/uL (0-1.0); Monocytes % (A) 4 %; Neutrophils # (A) 7.4 k/uL (1.3-7.7); Neutrophils % (A) 72 %; Platelet Count 330 k/uL (150-450); RBC 4.27 m/uL (3.80-5.40); RDW 14.4 % (11.5-15.5); WBC 10.3 k/uL (3.8-10.6)
[2018-06-28 13:20] LABS: ALT 28 U/L (9-52); AST 12 U/L (14-36); Albumin 4.1 g/dL (3.5-5.0); Alkaline Phosphatase 98 U/L (38-126); Anion Gap 8 mmol/L; Blood Urea Nitrogen 22 mg/dL (7-17); Calcium 9.8 mg/dL (8.4-10.2); Carbon Dioxide 29 mmol/L (22-30); Chloride 104 mmol/L (98-107); Creatine Kinase 46 U/L (30-135); Glucose 107 mg/dL (74-99); Magnesium 2.1 mg/dL (1.6-2.3); Potassium 4.2 mmol/L (3.5-5.1); Sodium 141 mmol/L (137-145); Total Bilirubin 0.4 mg/dL (0.2-1.3); Total Protein 7.1 g/dL (6.3-8.2)
[2018-06-28 13:20] LABS: Appearance,Urine Clear (Clear); Bilirubin,Urine Negative (Negative); Blood,Urine Negative (Negative); Color,Urine Yellow; Glucose,Urine (UA) Negative (Negative); Ketones,Urine Negative (Negative); Leukocyte Esterase,Urine Negative (Negative); Nitrite,Urine Negative (Negative); PH, Urine 5.5 (5.0-8.0); Protein,Urine Negative (Negative); Specific Gravity,Urine 1.025 (1.001-1.035); Urobilinogen,Urine <2.0 mg/dL (<2.0)
[2018-06-28 13:23] LABS: INR 0.9 (<1.2); Partial Thromboplastin Time 25.6 sec (22.0-30.0); Prothrombin Time 10.1 sec (9.0-12.0)
[2018-06-28 13:33] VITALS: PULSE 66; TEMP 97.1
--- NOTE | 2018-06-28 14:37 | XR ---
EXAMINATION TYPE: XR chest 2V DATE OF EXAM: 06/28/2018 COMPARISON: 05/11/2018 TECHNIQUE: PA and lateral views submitted. HISTORY: Weakness FINDINGS: The lungs are clear and there is no pneumothorax, pleural effusion, or focal pneumonia. Surgical ch thao overlying the cervical spine. Arthropathy of the shoulders. Calcific tendinosis involving the ri ght shoulder suspected. No overt failure. Hypertrophic and degenerative change of the spine. IMPRESSION: 1. No acute process.
[2018-06-28] MEDS ORDERED: FUROSEMIDE 10 MG/ML 4 ML VIAL IV STA (14:43)
[2018-06-28 15:18] VITALS: BP 134/81
== END 2018-06-28 15:18 | disposition home or self-care (01) ==
LOC: EC 12:08
DX: R53.1 Weakness (principal); R53.83 Other fatigue; M79.89 Other specified soft tissue disorders; R06.02 Shortness of breath; R30.9 Painful micturition, unspecified; I11.0 Hypertensive heart disease with heart failure; I50.9 Heart failure, unspecified; G40.909 Epilepsy, unspecified, not intractable, without status epilepticus; E07.9 Disorder of thyroid, unspecified; G25.81 Restless legs syndrome; F32.9 Major depressive disorder, single episode, unspecified; G47.30 Sleep apnea, unspecified; Z99.89 Dependence on other enabling machines and devices; Z95.818 Presence of other cardiac implants and grafts; Z79.890 Hormone replacement therapy; Z79.82 Long term (current) use of aspirin; Z79.899 Other long term (current) drug therapy; Z91.048 Other nonmedicinal substance allergy status; Z88.8 Allergy status to other drugs, medicaments and biological substances; Z88.6 Allergy status to analgesic agent; Z91.040 Latex allergy status; Z88.0 Allergy status to penicillin
CPT/HCPCS: 99285 ×2; 96374 ×2; 36415; 93005; 83880; 80053; 82550; 83735; 84100; 84484; 85025; 85610; 85730; 81003; 71046; 70553; J1940; A9585

== ENCOUNTER → 2018-06-28 | Outpatient (CLI) | payer MEDICARE, OTHER ==
--- NOTE | 2018-06-28 17:24 | MR ---
EXAMINATION TYPE: MR brain wo/w con DATE OF EXAM: 06/28/2018 COMPARISON: Outside CT brain June 15, 2018. HISTORY: Memory loss, Falls, Slurred speech,Transient cerebral ischemic attack TECHNIQUE: Multiplanar, multisequence images of the brain and brainstem is performed without and with IV contras t, utilizing 13.5 mL intravenous Gadavist . FINDINGS: Diffusion weighted images demonstrate no evidence of a recent infarct or other diffusion ab normality. There is no worrisome extra-axial fluid collection. The ventricular system and cisternal spaces are normal in size and appearance. There is mild symmetric volume loss over superior bilatera l frontal lobes. There is occasional focus of T2 hyperintensity scattered throughout the white matter bilaterally, roughly 3 scattered lesions are seen, for reference is 5 mm high left frontal lesion ax ial image 24. Midline structures demonstrate normal morphology. The craniocervical junction appears within normal limits. Post contrast images demonstrate no abnormal enhancement. The dural venous sinuses appear pa tent. The visualized sinuses are clear and the globes are intact. IMPRESSION: There is mild high bilateral frontal lobe atrophy and minimal chronic small vessel ischem ic change. No suspicious enhancement. No evidence of a recent infarct.
== END ==
LOC: RADMRIMAIN 09:27
PROVIDERS: ATTEND Family Medicine
DX: G45.9 Transient cerebral ischemic attack, unspecified (principal); G31.9 Degenerative disease of nervous system, unspecified
CPT/HCPCS: 70553; A9585

== ENCOUNTER → 2018-07-19 | Outpatient (CLI) | payer MEDICARE, OTHER ==
[2018-07-19 15:33] VITALS: BP 126/86; PULSE 91; RESP 16; TEMP 98.2; BMI 45.7
--- NOTE | 2018-08-06 08:17 | P.HPBAR ---
Bariatric H&P - History & Physicial H&P Date: 07/19/18 History & Physicial: Visit/CC: Working on Criteria Patient initial contact: Initial weight: 137.438 kg Initial weight in pounds: 303.00 Height: 5 ft 7 in Initial BMI: 47.4 Last weight: Current weight: 132.449 kg Current weight in pounds: 292.00 Current BMI: 45.7 [place] body weight (based on NIH guidelines): 61.235 kg Excess body weight loss: 6.5% The patient is a 57 year-old F who presents for Bariatric Assessment. Patient presents today for presurgical consultation. She is currently working on obtaining insurance authorization. She is morbidly obese with BMI 46. Past Medical History Past Medical History: Chest Pain / Angina, Heart Failure, Hyperlipidemia, Hypertension, Osteoarthritis (OA), Pneumonia, Seizure Disorder, Skin Disorder, Sleep Apnea/CPAP/BIPAP, Thyroid Disorder Additional Past Medical History / Comment(s): LAST KNOWN SEIZURE a couple months ago. developementally disabled, restless leg syndrme, cervical and back pain with pain down bilateral legs, leg weakness, occasional numbness and tingling to bilateral hands and feet, no cpap used currently, abdominal pain. has a bowel movement-(diarrhea)- right after eating, states has had recent falls, persistant itching-cause unknown, History of Any Multi-Drug Resistant Organisms: None Reported Past Surgical History: Adenoidectomy, Cholecystectomy, Heart Catheterization, Hysterectomy, Tonsillectomy Additional Past Surgical History / Comment(s): cervical surgery/cage, Past Anesthesia/Blood Transfusion Reactions: No Reported Reaction Date of Last Stent Placement:: 06/03/2014 Past Psychological History: Depression Additional Psychological History / Comment(s): Pt states she currently resides with her sister. She is mildly developmentally delayed. She states she has had falls and that her sister's home is too small for her to be able to use any assistive devices. states she signs own consents Smoking Status: Never smoker Past Alcohol Use History: None Reported Additional Past Alcohol Use History / Comment(s): . Past Drug Use History: None Reported - Past Family History Father Family Medical History: Diabetes Mellitus, Renal Disease Additional Family Medical History / Comment(s): Father had IDDM. He at the age of 73 yrs. Mother Family Medical History: No Reported History Additional Family Medical History / Comment(s): . Surgical - Exam Vital Signs Temp Pulse Resp BP 98.2 F 91 16 126/86 07/19/18 14:52 07/19/18 14:52 07/19/18 14:52 07/19/18 14:52 BMI 46 - General well developed, well nourished, no distress - Eyes PERRL - ENT normal pinna - Neck no masses - Respiratory normal expansion - Cardiovascular Rhythm: regular - Abdomen Abdomen: soft, non tender Bariatric Assessment & Plan Plan: Morbid obesity with BMI 46. Patient has a good understanding of sleeve gastrectomy. Went over the risks and benefits of procedure including injury to the stomach liver spleen and issues of gastric staple line such as disruption, bleeding and scarring. Patient will be scheduled for sleeve gastrectomy once her insurance authorization requirements have been met. Bariatric Checklist Checklist: Plan: Checklist: EGD: 1. Hiatal hernia: 2. H. Pylori: HgbA1c: Vitamin D: Smoking: Never smoker Primary care physician referral: [place] Psychiatry clearance: Cardiology clearance: Sleep study: Diet journal: VTE risk score: VTE risk level: Rehab needs at discharge:
== END ==
LOC: BARWHC3 11:52
PROVIDERS: ATTEND Surgery
DX: E66.01 Morbid (severe) obesity due to excess calories (principal); Z68.42 Body mass index [BMI] 45.0-49.9, adult; Z90.49 Acquired absence of other specified parts of digestive tract; Z90.710 Acquired absence of both cervix and uterus
CPT/HCPCS: 99211

== ENCOUNTER → 2018-07-21 | Outpatient (CLI) | payer MEDICARE, OTHER ==
[2018-07-21 11:05] VITALS: BMI 46.3
== END ==
LOC: BARWHC3 10:05
PROVIDERS: ATTEND Surgery
DX: E66.01 Morbid (severe) obesity due to excess calories (principal); Z68.42 Body mass index [BMI] 45.0-49.9, adult
CPT/HCPCS: 97803

== ENCOUNTER → 2018-08-23 | Outpatient (CLI) | payer MEDICARE, OTHER ==
[2018-08-23 14:36] VITALS: BP 145/92; PULSE 86; RESP 16; TEMP 97.4; BMI 47.1
--- NOTE | 2018-08-24 10:10 | P.HPBAR ---
Bariatric H&P - History & Physicial H&P Date: 08/23/18 History & Physicial: Visit/CC: Bariatric Discussion about psych Patient initial contact: Initial weight: 137.438 kg Initial weight in pounds: 303.00 Height: 5 ft 7 in Initial BMI: 47.4 Last weight: Current weight: 136.531 kg Current weight in pounds: 301.00 Current BMI: 47.1 [place] body weight (based on NIH guidelines): 61.235 kg Excess body weight loss: 1.1% The patient is a 57 year-old F who presents for Bariatric Assessment. Patient presents today for preoperative consultation for sleeve gastrectomy. She states she is not happy with Dr. hammond. She is requesting to see another psychologist. The patient had forgotten some of her previous information on the sleeve gastrectomy. We went over the risks and benefits of the sleeve gastrectomy again. The patient will attend another information seminar. Past Medical History Past Medical History: Chest Pain / Angina, Heart Failure, Hyperlipidemia, Hypertension, Osteoarthritis (OA), Pneumonia, Seizure Disorder, Skin Disorder, Sleep Apnea/CPAP/BIPAP, Thyroid Disorder Additional Past Medical History / Comment(s): LAST KNOWN SEIZURE a couple months ago. developementally disabled, restless leg syndrme, cervical and back pain with pain down bilateral legs, leg weakness, occasional numbness and tingling to bilateral hands and feet, no cpap used currently, abdominal pain. has a bowel movement-(diarrhea)- right after eating, states has had recent falls, persistant itching-cause unknown, History of Any Multi-Drug Resistant Organisms: None Reported Past Surgical History: Adenoidectomy, Cholecystectomy, Heart Catheterization, Hysterectomy, Tonsillectomy Additional Past Surgical History / Comment(s): cervical surgery/cage, Past Anesthesia/Blood Transfusion Reactions: No Reported Reaction Date of Last Stent Placement:: 06/03/2014 Past Psychological History: Depression Additional Psychological History / Comment(s): Pt states she currently resides with her sister. She is mildly developmentally delayed. She states she has had falls and that her sister's home is too small for her to be able to use any assistive devices. states she signs own consents Smoking Status: Never smoker Past Alcohol Use History: None Reported Additional Past Alcohol Use History / Comment(s): . Past Drug Use History: None Reported - Past Family History Father Family Medical History: Diabetes Mellitus, Renal Disease Additional Family Medical History / Comment(s): Father had IDDM. He at the age of 73 yrs. Mother Family Medical History: No Reported History Additional Family Medical History / Comment(s): . Surgical - Exam Vital Signs Temp Pulse Resp BP 97.4 F L 86 16 145/92 08/23/18 14:33 08/23/18 14:33 08/23/18 14:33 08/23/18 14:33 - General well developed, well nourished, no distress - Eyes PERRL - ENT normal pinna - Cardiovascular Rhythm: regular - Abdomen Abdomen: soft, non tender Bariatric Assessment & Plan Plan: Morbid obesity with BMI 47. Patient will follow-up in 4 weeks. She will intend another informational seminar. And reschedule her psychologic exam. Bariatric Checklist Checklist: Plan: Checklist: EGD: 1. Hiatal hernia: 2. H. Pylori: HgbA1c: Vitamin D: Smoking: Never smoker Primary care physician referral: [place] Psychiatry clearance: Cardiology clearance: Sleep study: Diet journal: VTE risk score: VTE risk level: Rehab needs at discharge:
== END ==
LOC: BARWHC3 12:50
PROVIDERS: ATTEND Surgery
DX: E66.01 Morbid (severe) obesity due to excess calories (principal); Z68.42 Body mass index [BMI] 45.0-49.9, adult
CPT/HCPCS: 99211

== ENCOUNTER → 2018-11-01 | Outpatient (CLI) | payer MEDICARE, OTHER ==
[2018-11-01 13:18] VITALS: BP 158/106; PULSE 91; TEMP 98; BMI 47.9
--- NOTE | 2018-11-01 14:23 | P.HPBAR ---
Bariatric H&P - History & Physicial H&P Date: 11/01/18 History & Physicial: Visit/CC: bariatric consult Patient initial contact: Initial weight: 137.438 kg Initial weight in pounds: 303.00 Height: 5 ft 7 in Initial BMI: 47.4 Last weight: Current weight: 138.799 kg Current weight in pounds: 306.00 Current BMI: 47.9 [place] body weight (based on NIH guidelines): 61.235 kg Excess body weight loss: The patient is a 58 year-old F who presents for Bariatric Assessment. Patient presents today for presurgical consultation. She apparently is related to be scheduled for gastric sleeve surgery. Patient's obesity has been relatively stable. Her current weight is 306 pounds. We will over the risks and benefits of the sleeve gastrectomy. Past Medical History Past Medical History: Chest Pain / Angina, Heart Failure, Hyperlipidemia, Hypertension, Osteoarthritis (OA), Pneumonia, Seizure Disorder, Skin Disorder, Sleep Apnea/CPAP/BIPAP, Thyroid Disorder Additional Past Medical History / Comment(s): LAST KNOWN SEIZURE a couple months ago. developementally disabled, restless leg syndrme, cervical and back pain with pain down bilateral legs, leg weakness, occasional numbness and tingling to bilateral hands and feet, no cpap used currently, abdominal pain. has a bowel movement-(diarrhea)- right after eating, states has had recent falls, persistant itching-cause unknown, sees pain specialist for chronic pain (entire body) History of Any Multi-Drug Resistant Organisms: None Reported Past Surgical History: Adenoidectomy, Cholecystectomy, Heart Catheterization, Hy sterectomy, Tonsillectomy Additional Past Surgical History / Comment(s): cervical surgery/cage, Past Anesthesia/Blood Transfusion Reactions: No Reported Reaction Date of Last Stent Placement:: 06/03/2014 Past Psychological History: Depression Additional Psychological History / Comment(s): Pt states she currently resides with her sister. She is mildly developmentally delayed. She states she has had falls and that her sister's home is too small for her to be able to use any assistive devices. states she signs own consents Smoking Status: Never smoker Past Alcohol Use History: None Reported Additional Past Alcohol Use History / Comment(s): . Past Drug Use History: None Reported - Past Family History Father Family Medical History: Diabetes Mellitus, Renal Disease Additional Family Medical History / Comment(s): Father had IDDM. He at the age of 73 yrs. Mother Family Medical History: No Reported History Additional Family Medical History / Comment(s): . Surgical - Exam Vital Signs Temp Pulse BP 98.0 F 91 158/106 11/01/18 13:14 11/01/18 13:14 11/01/18 13:14 Obesity BMI 48 - General well developed, well nourished, no distress - Eyes PERRL - ENT normal pinna - Neck no masses - Respiratory normal expansion - Cardiovascular Rhythm: regular - Abdomen Abdomen: soft, non tender Bariatric Assessment & Plan Plan: Morbid obesity, BMI 48. Patient was scheduled for sleeve gastrectomy. Bariatric Checklist Checklist: Plan: Checklist: EGD: 1. Hiatal hernia: 2. H. Pylori: HgbA1c: Vitamin D: Smoking: Never smoker Primary care physician referral: PCP Barbara Carter=, Oral Surgeon=[place] Psychiatry clearance: Cardiology clearance: Sleep study: Diet journal: VTE risk score: VTE risk level: Rehab needs at discharge:
== END | disposition home or self-care (01) ==
LOC: BARWHC3 12:41
PROVIDERS: ATTEND Surgery
DX: E66.01 Morbid (severe) obesity due to excess calories (principal); Z68.42 Body mass index [BMI] 45.0-49.9, adult; Z90.49 Acquired absence of other specified parts of digestive tract
CPT/HCPCS: 99211

== ENCOUNTER → 2018-11-26 | Outpatient (CLI) | payer MEDICARE, OTHER ==
[2018-11-26 08:31] LABS: Basophils # (A) 0.1 k/uL (0-0.2); Basophils % (A) 1 %; Eosinophils # (A) 0.1 k/uL (0-0.7); Eosinophils % (A) 1 %; HCT 42.5 % (34.0-46.0); HGB 13.6 gm/dL (11.4-16.0); Lymphocytes # (A) 2.5 k/uL (1.0-4.8); Lymphocytes % (A) 25 %; MCH 28.2 pg (25.0-35.0); MCHC 31.9 g/dL (31.0-37.0); MCV 88.4 fL (80.0-100.0); Monocytes # (A) 0.4 k/uL (0-1.0); Monocytes % (A) 4 %; Neutrophils # (A) 6.5 k/uL (1.3-7.7); Neutrophils % (A) 66 %; Platelet Count 385 k/uL (150-450); RDW 14.9 % (11.5-15.5); WBC 9.8 k/uL (3.8-10.6)
[2018-11-26 08:50] LABS: ALT 17 U/L (9-52); AST 21 U/L (14-36); African American GFR (CKD) >90 (>60 ml/min/1.73 sqM); Albumin 4.4 g/dL (3.5-5.0); Alkaline Phosphatase 96 U/L (38-126); Anion Gap 12 mmol/L; Blood Urea Nitrogen 11 mg/dL (7-17); Calcium 9.8 mg/dL (8.4-10.2); Carbon Dioxide 27 mmol/L (22-30); Chloride 101 mmol/L (98-107); Glucose 133 mg/dL (74-99); Potassium 3.5 mmol/L (3.5-5.1); Sodium 140 mmol/L (137-145); Total Bilirubin 0.3 mg/dL (0.2-1.3); Total Protein 7.5 g/dL (6.3-8.2)
== END | disposition home or self-care (01) ==
LOC: LABWHC1 08:00
PROVIDERS: ATTEND Surgery
DX: Z01.812 Encounter for preprocedural laboratory examination (principal)
CPT/HCPCS: 36415; 80053; 85025

== ENCOUNTER 2018-12-01 08:30 | Inpatient (IN) | payer MEDICARE, OTHER ==
[2018-11-24 09:37] VITALS: BMI 45.7
[~2018-12-01 08:30] MED LIST changes: +DEXAMETHASONE SOD PHOSPHATE 10 MG/ML 1 ML VIAL IV ONE; +ENOXAPARIN 40 MG/0.4 ML SYRINGE SQ ONE; -HYDROmorphone 1 MG/ML 1 ML SYRINGE IVP PRN; +KETOROLAC 30 MG/ML 1 ML VIAL IVP SCH; -LACTATED RINGERS 1,000 ML IV SCH; +LIDOCAINE 1% 20 ML VIAL (10MG/ML) FOR IV START INTRADERMA PRN; +METOCLOPRAMIDE 5 MG/ML 2 ML VIAL IVP PRN; +ONDANSETRON 4 MG/2 ML VIAL IVP ONE; +ONDANSETRON 4 MG/2 ML VIAL IVP PRN; +SCOPOLAMINE 1.5MG/72HR PATCH TRANSDERM ONE; +ceFAZolin 3 GM in SODIUM CHLORIDE 0.9% 100 ML IVPB ONE
[2018-12-01] MEDS: LACTATED RINGERS 1,000 ML IV SCH (11:13)
--- NOTE | 2018-12-01 11:30 | P.GSHP ---
History of Present Illness H&P Date: 12/01/18 Chief Complaint: Repeat obesity, BMI 46 This a 58-year-old female with history of morbid obesity. Her BMI is 46. He also noted a hiatal hernia. Patient does today for laparoscopic sleeve gastrectomy. She will also undergo repair of hiatal hernia. Patient understands the risks of surgery including conversion to open procedure and issues with the gastric sleeve such as bleeding perforation or obstruction. Past Medical History Past Medical History: Chest Pain / Angina, Heart Failure, Hyperlipidemia, Hypertension, Osteoarthritis (OA), Pneumonia, Seizure Disorder, Skin Disorder, Sleep Apnea/CPAP/BIPAP, Thyroid Disorder Additional Past Medical History / Comment(s): LAST KNOWN SEIZURE a couple months ago. developementally disabled, restless leg syndrme, cervical and back pain with pain down bilateral legs, leg weakness, occasional numbness and tingling to bilateral hands and feet,cpap used currently, abdominal pain. (diarrhea)- right after eating, states has had recent falls, persistant itching-cause unknown, sees pain specialist for chronic pain (entire body) History of Any Multi-Drug Resistant Organisms: None Reported Past Surgical History: Adenoidectomy, Cholecystectomy, Heart Catheterization, Hysterectomy, Tonsillectomy Additional Past Surgical History / Comment(s): cervical surgery/cage Past Anesthesia/Blood Transfusion Reactions: No Reported Reaction Additional Past Anesthesia/Blood Transfusion Reaction / Comment(s): states "was told by my sister's boyfriend that I had trouble breathing and almost during my neck surgery",no hx blood transfusion Date of Last Stent Placement:: 06/03/2014 Smoking Status: Never smoker - Past Family History Father Family Medical History: Cancer Additional Family Medical History / Comment(s): stomach Sister(s) Family Medical History: Cancer Additional Family Medical History / Comment(s): stomach CA Mother Family Medical History: No Reported History Additional Family Medical History / Comment(s): . Medications and Allergies Home Medications Medication Instructions Recorded Confirmed Type rOPINIRole HCL 10 mg PO HS 02/04/16 11/24/18 History Gabapentin [Neurontin] 300 mg PO TID 05/11/18 11/24/18 History Levothyroxine Sodium [Synthroid] 125 mcg PO QAM 05/11/18 11/24/18 History Potassium Chloride [Klor-Con 20] 20 meq PO DAILY 05/11/18 11/24/18 History Aspirin EC [Ecotrin Low Dose] 81 mg PO DAILY 06/28/18 11/24/18 History Furosemide [Lasix] 20 mg PO BID 06/28/18 11/24/18 History Loratadine [Claritin] 10 mg PO DAILY 06/28/18 11/24/18 History Meclizine [Antivert] 25 mg PO TID 06/28/18 11/24/18 History amLODIPine [Norvasc] 10 mg PO QAM 06/28/18 11/24/18 History Lovastatin [Mevacor] 40 mg PO DAILY 07/19/18 11/24/18 History Montelukast [Singulair] 10 mg PO HS 07/19/18 11/24/18 History HYDROcodone/APAP 10-325MG [[place] 1 tab PO QID PRN 11/01/18 12/01/18 History 10-325] levETIRAcetam [Keppra] 1,000 mg PO Q12HR 11/24/18 11/24/18 History Allergies Allergy/AdvReac Type Severity Reaction Status Date / Time adhesive Allergy Rash/Hives Verified 12/01/18 11:11 buspirone [From BuSpar] Allergy Itching Verified 12/01/18 11:11 divalproex sodium Allergy Rash/Hives Verified 12/01/18 11:11 [From Depakote] ibuprofen [From Motrin] Allergy Rash/Hives Verified 12/01/18 11:11 latex Allergy Rash/Hives Verified 12/01/18 11:11 Penicillins Allergy Rash/Hives Verified 12/01/18 11:11 topiramate [From Topamax] Allergy Swelling Verified 12/01/18 11:11 Surgical - Exam Vital Signs Temp Pulse Resp BP Pulse Ox 98.5 F 79 16 149/89 97 12/01/18 11:04 12/01/18 11:04 12/01/18 11:04 12/01/18 11:04 12/01/18 11:04 - General well developed, well nourished, no distress - Eyes PERRL - ENT normal pinna - Neck no masses - Respiratory normal expansion - Cardiovascular Rhythm: regular - Abdomen Abdomen: soft, non tender Assessment and Plan Assessment: Morbid obesity with BMI of 46 We'll perform laparoscopic sleeve gastrectomy and repair of hiatal hernia
[2018-12-01] MEDS ORDERED: diphenhydrAMINE 50 MG/ML 1 ML VIAL ONE (11:49)
[2018-12-01] MEDS ORDERED: KETAMINE 10 MG/ML 20 ML VIAL ONE (11:49)
[2018-12-01] MEDS ORDERED: LIDOCAINE 1% INJ 10MG/ML (20 ML MDV) ONE (11:49)
[2018-12-01] MEDS ORDERED: ROCURONIUM BROMIDE 10 MG/ML 10 ML VIAL IV ONE (11:49)
[2018-12-01] MEDS ORDERED: PROPOFOL 10 MG/ML 20 ML VIAL IV ONE (11:49)
[2018-12-01] MEDS ORDERED: MIDAZOLAM 2 MG/2 ML VIAL ONE (11:49)
[2018-12-01] MEDS ORDERED: ePHEDrine SULFATE/0.9% NACL/PF 50 MG/5 ML SYRINGE IV ONE (11:49)
[2018-12-01] MEDS ORDERED: NEOSTIGMINE 1 MG/ML 10 ML VIAL ONE (11:49)
[2018-12-01] MEDS ORDERED: fentaNYL (PF) 50 MCG/ML 2 ML AMP ONE (11:49)
[2018-12-01] MEDS ORDERED: SUCCINYLCHOLINE CHLORIDE 100 MG/5 ML SYR IV ONE (11:49)
[2018-12-01] MEDS ORDERED: hydrALAZINE HCL 20 MG/ML 1 ML VIAL ONE (11:49)
[2018-12-01] MEDS ORDERED: GLYCOPYRROLATE 0.2 MG/ML 2 ML VIAL ONE (11:49)
[2018-12-01] MEDS ORDERED: METHYLENE BLUE 10 MG/ML (10 ML VIAL) ONE (11:49)
[2018-12-01] MEDS ORDERED: BUPIVACAINE (PF) 0.5% 30 ML VIAL SQ ONE (12:34)
[2018-12-01] MEDS ORDERED: LACTATED RINGERS 1,000 ML IV ONE (12:43)
--- NOTE | 2018-12-01 13:22 | P.OP ---
Date of Procedure: 12/01/18 Preoperative Diagnosis: Morbid obesity Postoperative Diagnosis: Morbid obesity, BMI 46 Procedure(s) Performed: Repair of hiatal hernia Laparoscopic sleeve gastrectomy Anesthesia: JASMINA Surgeon: Blayne Sethi Pathology: other (Antrum) Condition: stable Disposition: PACU Description of Procedure: TThe patient was placed on the operating room table in the supine position. She received general anesthesia and then was placed in dorsal lithotomy position. Her abdomen was prepped and draped in sterile fashion. The skin incision sites were anesthetized 1% local Xylocaine. And then the skin was incised with an 11 blade in the left lateral position. Using a blade less trocar under direct visualization the peritoneal cavity was entered. The abdomen was insufflated and then a 5 mm laparoscope was placed into the peritoneal cavity. A 5 mm trocar was placed in the right epigastric, and right lateral position. A 15 mm trocar was placed in the supra-umbilical position and another 5 mm trocar was placed in the left lateral position. The left lateral lobe of the liver was retracted. The stomach was visualized. The patient appeared to have a hiatal hernia. The hiatal hernia was dissected using Harmonic scissors. A 360 dissection of the esophagus and cecily were performed. The hiatal hernias repaired using 2-0 Ethibond suture. The greater curvature of the stomach was then dissected using the Harmonic scissors. The dissection occurred approximately 5 cm from the pylorus to the level of the left cecily. There was no hiatal hernia seen. At this point a 40- Turkish bougie dilator was placed the oropharynx and passed into the esophagus and into the stomach by the COMMUTATOR V [employer]ING ASSEM[employer]ER. The sleeve gastrectomy was performed by using the powered echelon stapler with a seam guard buttress material. Sequential firings of the stapler were performed. The gastric remnant was then brought out through the 15 mm trocar site. The dilator was withdrawn. And a orogastric tube was replaced into the stomach. The stomach was insufflated with 200 mL of methylene blue normal saline. There was no evidence of extravasation. The abdomen was irrigated there is no bleeding seen. The Dmitri-Amanda device was used to close the 15 mm trocar with 0 Vicryl. Skin was closed with interrupted 3-0 Monocryl sutures once the trochars withdrawn. Dermabond dressing was applied. Patient was sent to recovery in stable condition.
[2018-12-01] MEDS ORDERED: NALOXONE 0.4 MG/ML 1 ML VIAL IV PRN (13:23)
[2018-12-01] MEDS: HYDROmorphone 0.5 MG/0.5 ML SYRINGE IVP PRN ×2 (13:48→14:25)
[2018-12-01] MEDS ORDERED: ONDANSETRON 4 MG/2 ML VIAL IVP ONE (14:17)
[2018-12-01] MEDS: ALBUTEROL NEBULIZED 2.5 MG/3 ML INHALATION SCH ×2 (16:06→21:18)
[2018-12-01] MEDS: HYDROmorphone 1 MG/ML 1 ML SYRINGE IVP PRN (16:34)
[2018-12-01] MEDS: 0.9% NACL WITH KCL 20 MEQ/L 1,000 ML IV SCH ×2 (16:35→22:08)
[2018-12-01] MEDS: KETOROLAC 30 MG/ML 1 ML VIAL IVP SCH ×2 (16:50→17:54)
[2018-12-01] MEDS: hydrALAZINE HCL 20 MG/ML 1 ML VIAL IVP PRN (17:52)
[2018-12-01] MEDS: ONDANSETRON 4 MG/2 ML VIAL IVP PRN (22:09)
[2018-12-01] MEDS: levETIRAcetam IV 1,000 MG in SALINE 1 100ML.BAG IVPB SCH (22:36)
[2018-12-01] MEDS: HYOSCYAMINE ORAL DROPS 1.875 MG/15 ML BOTTLE PO PRN (22:36)
[2018-12-01] MEDS: ENOXAPARIN 40 MG/0.4 ML SYRINGE SQ SCH (22:36)
[2018-12-01] MEDS: SIMETHICONE 40 MG/0.6 ML DROPS 2,000 MG/30 ML BOTTLE PO PRN (22:38)
[2018-12-02] MEDS: hydrALAZINE HCL 20 MG/ML 1 ML VIAL IVP PRN (00:29)
[2018-12-02] MEDS: KETOROLAC 30 MG/ML 1 ML VIAL IVP SCH ×5 (00:35→23:21)
[2018-12-02] MEDS: HYDROmorphone 1 MG/ML 1 ML SYRINGE IVP PRN ×5 (00:38→21:22)
[2018-12-02] MEDS: LACTATED RINGERS 1,000 ML IV SCH (03:06)
[2018-12-02] MEDS: ONDANSETRON 4 MG/2 ML VIAL IVP PRN ×3 (04:21→21:22)
[2018-12-02] MEDS: HYOSCYAMINE ORAL DROPS 1.875 MG/15 ML BOTTLE PO PRN ×2 (04:27→15:42)
[2018-12-02] MEDS: SIMETHICONE 40 MG/0.6 ML DROPS 2,000 MG/30 ML BOTTLE PO PRN ×2 (04:28→15:42)
[2018-12-02] MEDS: 0.9% NACL WITH KCL 20 MEQ/L 1,000 ML IV SCH ×4 (04:38→22:17)
[2018-12-02] MEDS: ALBUTEROL NEBULIZED 2.5 MG/3 ML INHALATION SCH ×4 (07:27→20:06)
[2018-12-02 08:21] LABS: Basophils % (A) 0 %; Eosinophils # (A) 0.1 k/uL (0-0.7); Eosinophils % (A) 0 %; HCT 40.7 % (34.0-46.0); HGB 13.3 gm/dL (11.4-16.0); Lymphocytes # (A) 1.2 k/uL (1.0-4.8); Lymphocytes % (A) 9 %; MCH 28.7 pg (25.0-35.0); MCHC 32.6 g/dL (31.0-37.0); MCV 87.8 fL (80.0-100.0); Mean Platelet Volume 7.4; Monocytes # (A) 0.7 k/uL (0-1.0); Monocytes % (A) 5 %; Neutrophils # (A) 12.3 k/uL (1.3-7.7); Neutrophils % (A) 86 %; Platelet Count 404 k/uL (150-450); RBC 4.64 m/uL (3.80-5.40); RDW 15.1 % (11.5-15.5); WBC 14.3 k/uL (3.8-10.6)
[2018-12-02 08:36] LABS: African American GFR (CKD) >90 (>60 ml/min/1.73 sqM); Anion Gap 13 mmol/L; Blood Urea Nitrogen 10 mg/dL (7-17); Calcium 9.7 mg/dL (8.4-10.2); Carbon Dioxide 24 mmol/L (22-30); Chloride 102 mmol/L (98-107); Magnesium 1.7 mg/dL (1.6-2.3); Non-African American GFR(CKD) >90 (>60 ml/min/1.73 sqM); Phosphorus 3.1 mg/dL (2.5-4.5); Potassium 3.9 mmol/L (3.5-5.1); Sodium 139 mmol/L (137-145)
[2018-12-02] MEDS: PANTOPRAZOLE 40 MG/10 ML VIAL IV SCH (08:55)
--- NOTE | 2018-12-02 09:56 | FL ---
EXAMINATION TYPE: FL UGI DATE OF EXAM: 12/02/2018 LIMITED UGI: CLINICAL HISTORY: Morbid Obesity, gastric sleeve surgery yesterday TECHNIQUE: Limited esophagram is performed utilizing 40 oz of Isovue-370. A total of 1 minute 56 sec onds of fluoroscopic time was utilized during procedure. 42 spot images are saved to PACS. COMPARISON: CT abdomen and pelvis June 26, 2016 FINDINGS: The patient swallowed contrast without difficulty or delay. Esophageal peristalsis and mo tility are within normal limits. There is good flow of contrast along the diaphragmatic hiatus into proximal stomach and then moderate delay of flow through proximal anastomosis into gastric sleeve aft er several minutes some contrast is seen flowing into sleeve, there is pooling of contrast with air-f luid level up to the sternal notch. After several more minutes contrast eventually flows through dist al sleeve into the duodenal sweep. Patient remains asymptomatic. Majority of contrast is pooled in mi d to distal esophagus. No extravasation to suggest leak. IMPRESSION: No evidence of leak. Moderate obstruction status post recent gastric sleeve surgery presu med on the basis of postoperative edema. Patient noted to show no evidence of increased nausea or vom iting.
[2018-12-02] MEDS: levETIRAcetam IV 1,000 MG in SALINE 1 100ML.BAG IVPB SCH ×2 (10:15→21:21)
[2018-12-02] MEDS: ENOXAPARIN 40 MG/0.4 ML SYRINGE SQ SCH ×2 (11:24→21:21)
[2018-12-02] MEDS: amLODIPine 10 MG TAB PO SCH (15:42)
[2018-12-02] MEDS: DEXAMETHASONE SOD PHOSPHATE 4 MG/ML 1 ML VIAL IV PRN (15:42)
--- NOTE | 2018-12-02 15:55 | P.PN ---
Subjective Progress Note Date: 12/02/18 CHIEF COMPLAINT: Morbid obesity HISTORY OF PRESENT ILLNESS: 58-year-old female who underwent laparoscopic sleeve gastrectomy and repair of hiatal hernia. Postop day #1. Patient reports significant abdominal pain this morning that radiates into her shoulders. She reports nausea and an episode of emesis overnight. Esophagram was completed this morning revealing negative leak but does show moderate obstruction secondary to postoperative edema. Patient had a few episodes of emesis after esophagram was completed per nursing. Patient is afebrile. Blood pressure elevated. W BC 14.3. PHYSICAL EXAM: VITAL SIGNS: Reviewed. GENERAL: Well-developed in no acute distress. HEENT: No sclera icterus. Extraocular movements grossly intact. Moist buccal mucosa. Head is atraumatic, normocephalic. ABDOMEN: Soft. Nondistended. Positive bowel sounds. Laparoscopic surgical sites clean dry and intact without drainage or signs of infection NEUROLOGIC: Alert and oriented. Cranial nerves II through XII grossly intact. ASSESSMENT: 1. Morbid obesity, status post laparoscopic sleeve gastrectomy and repair of hiatal hernia PLAN: 1. Nothing by mouth except ice chips and medications 2. Decadron 4 mg IV every 6 hours 3. Patient encouraged to ambulate in the hallway today to help relieve gas pains 4. Incentive spirometry 5. Pain control Nurse practitioner note has been reviewed by physician. Signing provider agrees with the documented findings, assessment, and plan of care. Objective - Vital Signs Vital signs: Vital Signs Temp 98.5 F 12/02/18 12:00 Pulse 85 12/02/18 12:00 Resp 16 12/02/18 12:45 BP 162/102 12/02/18 12:00 Pulse Ox 98 12/02/18 12:00 Intake & Output 12/01/18 12/02/18 12/02/18 18:59 06:59 18:59 Intake Total 2220 250 Output Total 20 5 Balance 2200 245 Weight 132.449 kg Intake: IV 2220 Intake, IV Titration 250 Amount 0.9% NaCl with KCl 20 Meq 250 /l 1,000 ml @ 150 mls/hr IV .Q6H40M BERTHA Rx#: [id number] Output: Emesis 5 Estimated Blood Loss 20 Other: Voiding Method Toilet Toilet # Voids 2 1 1 - Labs CBC & Chem 7: 12/02/18 07:23 12/02/18 07:23 Labs: Abnormal Lab Results - Last 24 Hours (Table) 12/02/18 Range/Units 07:23 WBC 14.3 H (3.8-10.6) k/uL Neutrophils # 12.3 H (1.3-7.7) k/uL
[2018-12-03] MEDS: KETOROLAC 30 MG/ML 1 ML VIAL IVP SCH ×4 (02:32→19:53)
[2018-12-03] MEDS: DEXAMETHASONE SOD PHOSPHATE 4 MG/ML 1 ML VIAL IV PRN ×2 (02:46→20:20)
[2018-12-03] MEDS: HYDROmorphone 1 MG/ML 1 ML SYRINGE IVP PRN ×2 (02:47→06:09)
[2018-12-03] MEDS: SIMETHICONE 40 MG/0.6 ML DROPS 2,000 MG/30 ML BOTTLE PO PRN ×2 (02:47→20:22)
[2018-12-03] MEDS: HYOSCYAMINE ORAL DROPS 1.875 MG/15 ML BOTTLE PO PRN ×2 (02:49→20:21)
[2018-12-03] MEDS: LACTATED RINGERS 1,000 ML IV SCH (04:37)
[2018-12-03] MEDS: ONDANSETRON 4 MG/2 ML VIAL IVP PRN ×2 (06:09→11:40)
[2018-12-03] MEDS: LEVOTHYROXINE 125 MCG TAB PO SCH (06:10)
[2018-12-03] MEDS: amLODIPine 10 MG TAB PO SCH (07:01)
[2018-12-03] MEDS: PANTOPRAZOLE 40 MG/10 ML VIAL IV SCH (07:02)
[2018-12-03] MEDS: levETIRAcetam IV 1,000 MG in SALINE 1 100ML.BAG IVPB SCH ×2 (07:02→20:21)
[2018-12-03] MEDS: ALBUTEROL NEBULIZED 2.5 MG/3 ML INHALATION SCH ×4 (07:38→20:56)
[2018-12-03 10:06] LABS: Basophils % (A) 0 %; Eosinophils % (A) 0 %; HGB 12.5 gm/dL (11.4-16.0); Lymphocytes # (A) 0.6 k/uL (1.0-4.8); Lymphocytes % (A) 6 %; MCH 28.2 pg (25.0-35.0); MCHC 31.3 g/dL (31.0-37.0); MCV 89.9 fL (80.0-100.0); Mean Platelet Volume 7.5; Monocytes # (A) 0.2 k/uL (0-1.0); Monocytes % (A) 2 %; Neutrophils # (A) 9.2 k/uL (1.3-7.7); Neutrophils % (A) 91 %; Platelet Count 351 k/uL (150-450); RBC 4.45 m/uL (3.80-5.40); RDW 15.6 % (11.5-15.5); WBC 10.1 k/uL (3.8-10.6)
[2018-12-03 10:08] LABS: African American GFR (CKD) >90 (>60 ml/min/1.73 sqM); Anion Gap 10 mmol/L; Blood Urea Nitrogen 16 mg/dL (7-17); Calcium 9.8 mg/dL (8.4-10.2); Carbon Dioxide 25 mmol/L (22-30); Chloride 106 mmol/L (98-107); Glucose 147 mg/dL (74-99); Non-African American GFR(CKD) >90 (>60 ml/min/1.73 sqM); Potassium 4.4 mmol/L (3.5-5.1); Sodium 141 mmol/L (137-145)
[2018-12-03] MEDS: HYDROcodone/APAP 15 ML SOLUTION PO PRN ×2 (11:39→17:22)
--- NOTE | 2018-12-03 11:41 | P.PN ---
Subjective Progress Note Date: 12/03/18 CHIEF COMPLAINT: Morbid obesity HISTORY OF PRESENT ILLNESS: 58-year-old female who underwent laparoscopic sleeve gastrectomy and repair of hiatal hernia. Postop day #2. Patient reports her pain is improved today. Patient was started on Decadron yesterday secondary to moderate obstruction visualized on esophagram. Patient reports improvement in nausea. Denies further episodes of emesis. She has been tolerating ice chips. Patient ambulated this morning with physical therapy in the hallway. WBC 10.1. Hemoglobin 12.5. PHYSICAL EXAM: VITAL SIGNS: Reviewed. GENERAL: Well-developed in no acute distress. HEENT: No sclera icterus. Extraocular movements grossly intact. Moist buccal mucosa. Head is atraumatic, normocephalic. ABDOMEN: Soft. Nondistended. Positive bowel sounds. Laparoscopic surgical sites clean dry and intact without drainage or signs of infection NEUROLOGIC: Alert and oriented. Cranial nerves II through XII grossly intact. ASSESSMENT: 1. Morbid obesity, status post laparoscopic sleeve gastrectomy and repair of hiatal hernia 2. Postoperative edema causing moderate obstruction, an expected outcome of sleeve gastrectomy PLAN: 1. Trial clear liquid diet today 2. Continue Decadron 4 mg IV every 6 hours 3. Activity as tolerated 4. Incentive spirometry 5. Pain control 6. Patient states she is unable to return home at discharge and is requesting ECF at discharge. Social work is consulted. PT/OT on consult for evaluation. Nurse practitioner note has been reviewed by physician. Signing provider agrees with the documented findings, assessment, and plan of care. Objective - Vital Signs Vital signs: Vital Signs Temp 97.7 F 12/03/18 07:22 Pulse 72 12/03/18 07:49 Resp 17 12/03/18 07:22 BP 137/85 12/03/18 07:22 Pulse Ox 94 L 12/03/18 07:22 Intake & Output 12/02/18 12/03/18 12/03/18 18:59 06:59 18:59 Intake Total 1060 Output Total 50 Balance -50 1060 Weight 132.449 kg Intake: Intake, IV Titration 1050 Amount 0.9% NaCl with KCl 20 Meq 1050 /l 1,000 ml @ 100 mls/hr IV .Q10H BERTHA Rx#: [id number] Oral 10 Output: Emesis 50 Other: Voiding Method Toilet Toilet Toilet # Voids 1 2 # Emeses 1 - Labs CBC & Chem 7: 12/03/18 09:40 12/03/18 09:40 Labs: Abnormal Lab Results - Last 24 Hours (Table) 12/03/18 12/03/18 Range/Units 09:40 09:40 RDW 15.6 H (11.5-15.5) % Neutrophils # 9.2 H (1.3-7.7) k/uL Lymphocytes # 0.6 L (1.0-4.8) k/uL Glucose 147 H (74-99) mg/dL
[2018-12-03] MEDS: ENOXAPARIN 40 MG/0.4 ML SYRINGE SQ SCH ×2 (11:43→20:20)
[2018-12-03] MEDS: NYSTATIN 100,000 UNIT/GM POWD 15 GM TOPICAL SCH ×2 (11:46→21:20)
[2018-12-03] MEDS: 0.9% NACL WITH KCL 20 MEQ/L 1,000 ML IV SCH (17:23)
--- NOTE | 2018-12-03 18:45 | P.CONS ---
History of Present Illness - Reason for Consult Consult date: 12/02/18 Medical management hypertension, seizure disorder, thyroid disorder Requesting physician: Blayne Sethi - Chief Complaint Obesity, BMI 45.7, hiatal hernia - History of Present Illness This is a 58-year-old female with history of morbid obesity, BMI 45.7 and hiatal hernia status post laparoscopic sleeve gastrectomy and hiatal hernia repair. Tolerated procedure well. Currently complaining of abdominal pain, bilateral shoulder pain. Hypertensive. Incentive spirometer up to 1000. Reports nausea vomiting during the night, subsided. Esophagram pending. Afebrile, WBC 14.3. Maintained on Decadron. Denies chest pain, palpitations or increased shortness of breath. Afebrile, WBC 14.3. Review of Systems ROS Statement: Those systems with pertinent positive or pertinent negative responses have been documented in the HPI. ROS Other: All systems not noted in ROS Statement are negative. Past Medical History Past Medical History: Chest Pain / Angina, Heart Failure, Hyperlipidemia, Hypertension, Osteoarthritis (OA), Pneumonia, Seizure Disorder, Skin Disorder, Sleep Apnea/CPAP/BIPAP, Thyroid Disorder Additional Past Medical History / Comment(s): LAST KNOWN SEIZURE a couple months ago. developementally disabled, restless leg syndrme, cervical and back pain with pain down bilateral legs, leg weakness, occasional numbness and tingling to bilateral hands and feet,cpap used currently, abdominal pain. (diarrhea)- right after eating, states has had recent falls, persistant itching-cause unknown, sees pain specialist for chronic pain (entire body) History of Any Multi-Drug Resistant Organisms: None Reported Past Surgical History: Adenoidectomy, Cholecystectomy, Heart Catheterization, Hysterectomy, Tonsillectomy Additional Past Surgical History / Comment(s): cervical surgery/cage Past Anesthesia/Blood Transfusion Reactions: No Reported Reaction Additional Past Anesthesia/Blood Transfusion Reaction / Comm: states "was told by my sister's boyfriend that I had trouble breathing and almost during my neck surgery",no hx blood transfusion Date of Last Stent Placement:: 06/03/2014 Past Psychological History: Depression Additional Psychological History / Comment(s): Pt states she currently resides with her sister. She is mildly developmentally delayed. She states she has had falls and that her sister's home is too small for her to be able to use any assistive devices. states she signs own consents with sister being coguardian as well and able to assist with explanations and signatures if needed-to bring legal documents day of surgery Smoking Status: Never smoker Past Alcohol Use History: None Reported Additional Past Alcohol Use History / Comment(s): . Past Drug Use History: None Reported - Past Family History Father Family Medical History: Cancer Additional Family Medical History / Comment(s): stomach Sister(s) Family Medical History: Cancer Additional Family Medical History / Comment(s): stomach CA Mother Family Medical History: No Reported History Additional Family Medical History / Comment(s): . Medications and Allergies Home Medications Medication Instructions Recorded Confirmed Type rOPINIRole HCL 5 mg PO BID 02/04/16 12/01/18 History Gabapentin [Neurontin] 300 mg PO TID 05/11/18 12/01/18 History Levothyroxine Sodium [Synthroid] 125 mcg PO QAM 05/11/18 12/01/18 History Potassium Chloride [Klor-Con 20] 20 meq PO DAILY 05/11/18 12/01/18 History Aspirin EC [Ecotrin Low Dose] 81 mg PO DAILY 06/28/18 12/01/18 History Furosemide [Lasix] 20 mg PO BID 06/28/18 12/01/18 History Loratadine [Claritin] 10 mg PO DAILY 06/28/18 12/01/18 History Meclizine [Antivert] 25 mg PO TID 06/28/18 12/01/18 History amLODIPine [Norvasc] 10 mg PO QAM 06/28/18 12/01/18 History Lovastatin [Mevacor] 40 mg PO DAILY 07/19/18 12/01/18 History Montelukast [Singulair] 10 mg PO HS 07/19/18 12/01/18 History HYDROcodone/APAP 10-325MG [[place] 1 tab PO QID PRN 11/01/18 12/01/18 History 10-325] levETIRAcetam [Keppra] 1,000 mg PO Q12HR 11/24/18 12/01/18 History Losartan Potassium 100 mg PO HS 12/01/18 12/01/18 History Bisacodyl [Dulcolax] 5 mg PO DAILY PRN #10 tablet. 12/03/18 Rx HYDROcodone/APAP [[place] El[place] 15 ml PO Q6HR PRN 3 Days #180 ml 12/03/18 Rx 7.5-325Mg/15Ml] Ondansetron Odt [Zofran Odt] 4 mg PO Q8HR PRN #9 tab 12/03/18 Rx Simethicone 40 mg/0.6 ml Drops 40 mg PO PCHS PRN #30 ml 12/03/18 Rx [Mylicon Drops] Sucralfate [Carafate] 1 gm PO BID #500 ml 12/03/18 Rx Allergies Allergy/AdvReac Type Severity Reaction Status Date / Time adhesive Allergy Rash/Hives Verified 12/01/18 15:15 buspirone [From BuSpar] Allergy Itching Verified 12/01/18 15:15 divalproex sodium Allergy Rash/Hives Verified 12/01/18 15:15 [From Depakote] ibuprofen [From Motrin] Allergy Rash/Hives Verified 12/01/18 15:15 latex Allergy Rash/Hives Verified 12/01/18 15:15 Penicillins Allergy Rash/Hives Verified 12/01/18 15:15 topiramate [From Topamax] Allergy Swelling Verified 12/01/18 15:15 Physical Exam Vitals: Vital Signs Temp Pulse Pulse Pulse Resp BP Pulse Ox 12/02/18 16:01 88 12/02/18 15:51 84 12/02/18 12:45 16 12/02/18 12:00 98.5 F 85 16 162/102 98 12/02/18 11:08 86 12/02/18 10:55 82 12/02/18 08:00 98.7 F 77 16 166/103 95 12/02/18 07:29 97.9 F 84 14 166/98 96 12/02/18 05:47 93 116/67 96 12/02/18 04:30 16 12/02/18 04:17 94 L 12/02/18 04:00 99 16 143/87 95 12/02/18 02:10 94 134/84 12/02/18 00:47 98.6 F 107 H 18 171/98 94 L 12/02/18 00:27 87 190/87 12/01/18 23:21 95 12/01/18 21:30 94 L 12/01/18 21:29 82 12/01/18 21:19 80 12/01/18 18:42 98.3 F 102 H 18 154/97 100 Intake and Output 12/02/18 12/02/18 12/02/18 06:59 14:59 22:59 Intake Total 250 Output Total 5 Balance 245 Intake: Intake, IV Titration 250 Amount 0.9% NaCl with KCl 20 Meq 250 /l 1,000 ml @ 150 mls/hr IV .Q6H40M BERTHA Rx#: [id number] Output: Emesis 5 Other: Voiding Method Toilet # Voids 1 1 Weight 132.449 kg PHYSICAL EXAM: VITAL SIGNS: As above GENERAL: Sitting up in bed, alert and oriented 3, no acute distress HEENT: Conjunctivae normal. eyes normal. NECK: No JVD. No thyroid enlargement. No LNs CARDIOVASCULAR: S1, S2 regular. No murmur RESPIRATION: Breath sounds diminished in the bases. No rhonchi or crackles. No bronchial breathing. ABDOMEN: Soft, nondistended, status post surgery. Laparoscopic surgical sites well approximated, clean and dry .positive Bowel sounds heard. LEGS: No edema. no swelling NERVOUS SYSTEM: Cranial N 2-12 grossly normal. Moves all 4 limbs. Diffuse weakness No focal deficits. Strength and sensation grossly intact.. Lymphatic system. No LN neck axilla or groin. Results CBC & Chem 7: 12/03/18 09:40 12/03/18 09:40 Labs: Abnormal Lab Results - Last 24 Hours (Table) 12/02/18 Range/Units 07:23 WBC 14.3 H (3.8-10.6) k/uL Neutrophils # 12.3 H (1.3-7.7) k/uL Assessment and Plan Assessment: -Morbid obesity, BMI 45.7, status post laparoscopic sleeve gastrectomy -Hiatal hernia, status post repair -Hypertension -Seizure disorder -Sleep apnea, wears CPAP/BiPAP -Hypothyroidism Plan: Continue current medication regime ,monitoring and symptomatic treatment. Esophagram pending. Pain management as per surgery. Increase ambulation as tolerated. Aggressive pulmonary toileting with incentive spirometer reinforced. Further recommendations to follow. Thank you Dr. Sethi for the consult. The impression and plan of care has been dictated as directed. : I performed a history and examination of this patient, discussed the same with the dictator. I agree with the dictator's note ,documented as a scribe. Any additional findings or plans will be noted.
--- NOTE | 2018-12-03 18:52 | P.PN ---
Subjective Progress Note Date: 12/03/18 This is a 58-year-old female with history of morbid obesity, BMI 45.7 and hiatal hernia status post laparoscopic sleeve gastrectomy and hiatal hernia repair. Tolerated procedure well. Currently complaining of abdominal pain, bilateral shoulder pain. Hypertensive. Incentive spirometer up to 1000. Reports nausea vomiting during the night, subsided. Esophagram pending. Afebrile, WBC 14.3. Maintained on Decadron. Denies chest pain, palpitations or increased shortness of breath. Afebrile, WBC 14.3. 12/03/2018 Decadron initiated yesterday secondary to moderate obstruction per esophagram. Improvement in both nausea and pain. No further emesis. Evaluated by physical therapy and patient has been accepted at subacute rehab. Afebrile, normal WBC Objective - Vital Signs Vital signs: Vital Signs Temp 98.5 F 12/03/18 14:30 Pulse 80 12/03/18 16:46 Resp 17 12/03/18 14:30 BP 116/79 12/03/18 14:30 Pulse Ox 96 12/03/18 14:30 Intake & Output 12/02/18 12/03/18 12/03/18 18:59 06:59 18:59 Intake Total 1060 100 Output Total 50 Balance -50 1060 100 Weight 132.449 kg Intake: Intake, IV Titration 1050 Amount 0.9% NaCl with KCl 20 Meq 1050 /l 1,000 ml @ 100 mls/hr IV .Q10H BERTHA Rx#: [id number] Oral 10 100 Output: Emesis 50 Other: Voiding Method Toilet Toilet Toilet # Voids 1 2 1 # Emeses 1 - Exam VITAL SIGNS: As above GENERAL: Sitting up in bed, alert and oriented 3, no acute distress HEENT: Conjunctivae normal. eyes normal. NECK: No JVD. No thyroid enlargement. No LNs CARDIOVASCULAR: S1, S2 regular. No murmur RESPIRATION: Breath sounds diminished in the bases. No rhonchi or crackles. No bronchial breathing. ABDOMEN: Soft, nondistended, status post surgery. Laparoscopic surgical sites well approximated, clean and dry .positive Bowel sounds heard. LEGS: No edema. no swelling NERVOUS SYSTEM: Cranial N 2-12 grossly normal. Moves all 4 limbs. Diffuse weak ness No focal deficits. Strength and sensation grossly intact.. - Labs CBC & Chem 7: 12/03/18 09:40 12/03/18 09:40 Labs: Abnormal Lab Results - Last 24 Hours (Table) 12/03/18 12/03/18 Range/Units 09:40 09:40 RDW 15.6 H (11.5-15.5) % Neutrophils # 9.2 H (1.3-7.7) k/uL Lymphocytes # 0.6 L (1.0-4.8) k/uL Glucose 147 H (74-99) mg/dL Assessment and Plan Assessment: -Morbid obesity, BMI 45.7, status post laparoscopic sleeve gastrectomy. -Moderate obstruction per Esophagram, secondary to postoperative edema, on Decadron -Hiatal hernia, status post repair -Hypertension -Seizure disorder -Sleep apnea, wears CPAP/BiPAP -Hypothyroidism Plan: Continue current medication regime ,monitoring and symptomatic treatment. Clear liquids as per surgery. Pain management as per surgery. PT/OT .Increase ambulation as tolerated. Aggressive pulmonary toileting with incentive spirometer reinforced. Subacute rehab at discharge. Thank you Dr. Sethi for the consult. The impression and plan of care has been dictated as directed. : I performed a history and examination of this patient, discussed the same with the dictator. I agree with the dictator's note ,documented as a scribe. Any additional findings or plans will be noted.
[2018-12-04] MEDS: ONDANSETRON 4 MG/2 ML VIAL IVP PRN (01:00)
[2018-12-04] MEDS: HYDROcodone/APAP 15 ML SOLUTION PO PRN ×2 (01:01→22:41)
[2018-12-04] MEDS: 0.9% NACL WITH KCL 20 MEQ/L 1,000 ML IV SCH ×3 (01:05→20:43)
[2018-12-04] MEDS: KETOROLAC 30 MG/ML 1 ML VIAL IVP SCH ×3 (01:35→18:09)
[2018-12-04] MEDS: LACTATED RINGERS 1,000 ML IV SCH (01:36)
[2018-12-04] MEDS: LEVOTHYROXINE 125 MCG TAB PO SCH (05:08)
[2018-12-04] MEDS: ALBUTEROL NEBULIZED 2.5 MG/3 ML INHALATION SCH ×4 (07:18→20:51)
[2018-12-04] MEDS: NYSTATIN 100,000 UNIT/GM POWD 15 GM TOPICAL SCH ×2 (08:45→22:43)
[2018-12-04] MEDS: PANTOPRAZOLE 40 MG/10 ML VIAL IV SCH (09:04)
[2018-12-04] MEDS: levETIRAcetam IV 1,000 MG in SALINE 1 100ML.BAG IVPB SCH ×2 (09:04→22:43)
[2018-12-04] MEDS: amLODIPine 10 MG TAB PO SCH (09:05)
[2018-12-04] MEDS: ENOXAPARIN 40 MG/0.4 ML SYRINGE SQ SCH ×2 (10:10→22:43)
--- NOTE | 2018-12-04 15:40 | P.PN ---
Subjective Progress Note Date: 12/04/18 CHIEF COMPLAINT: Morbid obesity HISTORY OF PRESENT ILLNESS: The patient is a 58-year-old female status post sleeve gastrectomy, 12/01/2018. She reports troubles her diet. She does not understand her bariatric diet. She is pending transfer to rehab. Pain is controlled. She also reports dumping syndrome. ROS: She reports of nausea. Has bowel movements. No fevers or chills. No new chest pain. No productive sputum PHYSICAL EXAM: VITAL SIGNS: Reviewed CONSTITUTIONAL: Well developed and in no acute distress. EYES: Conjuctivae without sclera icterus. Extraocular movements grossly intact. HEAD, EARS, NOSE, THROAT: Moist buccal mucosa. Head is atraumatic, normocephalic. Hears conversational speech. No nasal drainage. NECK: Supple. No thyroidomegaly. RESPIRATORY: Non-labored respirations and equal bilateral excursions. CARDIOVASCULAR: Palpable 2+ radial pulses. Regular rate. Regular rhythm. ABDOMEN: Incisions clean dry and intact. Soft. No peritonitis. Minimal tenderness left upper quadrant. MUSCULOSKELETAL: No gross deformity of the lower extremities noted. No clubbing. No cyanosis. SKIN: Good skin turgor. Well perfused. NEUROLOGIC: Cranial nerves I through XII grossly intact. No focal or lateralizing signs. PSYCH: Appropriate affect. Alert and oriented to person, place and time. CLINCAL LABS: White blood cell count normal ASSESSMENT: 1. Morbid obesity 2. Status post sleeve gastrectomy PLAN: 1. Recommend hold discharge as she is high risk for re-admission with poor understanding of current diet and present dumping syndrome 2. 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 reinforcement advised prior to discharge Objective - Vital Signs Vital signs: Vital Signs Temp 97.7 F 12/04/18 08:32 Pulse 68 12/04/18 12:07 Resp 18 12/04/18 08:32 BP 138/83 12/04/18 08:32 Pulse Ox 97 12/04/18 08:32 Intake & Output 12/03/18 12/04/18 12/04/18 18:59 06:59 18:59 Intake Total 050 587 2865 Balance 220 521 9507 Intake: Intake, IV Titration 700 750 Amount 0.9% NaCl with KCl 20 Meq 700 650 /l 1,000 ml @ 100 mls/hr IV .Q10H [facility] Rx#: [id number] levETIRAcetam IV 1,000 mg 100 In Saline 1 100ml.bag @ 400 mls/hr IVPB Q12HR [facility] Rx#:[id number] Oral 100 270 840 Other: Voiding Method Toilet Toilet # Voids 1 3 3 # Bowel Movements 1 4 - Labs CBC & Chem 7: 12/03/18 09:40 12/03/18 09:40 Assessment and Plan (1) Morbid obesity due to excess calories Current Visit: Yes Status: Acute Code(s): E66.01 - MORBID (SEVERE) OBESITY DUE TO EXCESS CALORIES SNOMED Code(s): 575232737 (2) Adult BMI 45.0-49.9 kg/sq m Current Visit: Yes Status: Acute Code(s): Z68.42 - BODY MASS INDEX (BMI) 45.0-49.9, ADULT SNOMED Code(s): 924364789 (3) Homeless single person Current Visit: Yes Status: Acute Code(s): Z59.0 - HOMELESSNESS SNOMED Code(s): 120754839 (4) Dumping syndrome Current Visit: Yes Status: Acute Code(s): K91.1 - POSTGASTRIC SURGERY SYNDROMES SNOMED Code(s): 44798955 (5) Sleep apnea Current Visit: Yes Status: Acute Code(s): G47.30 - SLEEP APNEA, UNSPECIFIED SNOMED Code(s): 97183722 (6) HTN (hypertension) Current Visit: No Status: Acute Code(s): I10 - ESSENTIAL (PRIMARY) HYPERTENSION SNOMED Code(s): 92727947 (7) Seizure disorder Current Visit: No Status: Acute Code(s): G40.909 - EPILEPSY, UNSP, NOT INTRACTABLE, WITHOUT STATUS EPILEPTICUS SNOMED Code(s): 278773408 (8) Uncontrolled seizures Current Visit: No Status: Acute Code(s): R56.9 - UNSPECIFIED CONVULSIONS SNOMED Code(s): 40556188
[2018-12-05] MEDS: KETOROLAC 30 MG/ML 1 ML VIAL IVP SCH ×2 (00:04→05:53)
--- NOTE | 2018-12-05 00:23 | PN ---
PROGRESS NOTE SUBJECTIVE: 58-year-old white female, morbid obese, hiatal hernia, status post gastric sleeve. Awaiting rehab placement. Cardiovascular S1-S2. Lungs clear. GI soft. Hematology negative Homans. Psych fair mood and affect. ASSESSMENT: 1. Status post gastric sleeve. 2. Morbid obesity. 3. Hiatal hernia. 4. Hypertension. 5. Lymphedema type changes. Continue current treatment. Switch to oral medicines. Possible discharge to rehab center when cleared by Surgery. MMODL / IJN: [id number] /
[2018-12-05] MEDS: LACTATED RINGERS 1,000 ML IV SCH (05:53)
[2018-12-05] MEDS: 0.9% NACL WITH KCL 20 MEQ/L 1,000 ML IV SCH ×2 (05:53→18:56)
[2018-12-05] MEDS: LEVOTHYROXINE 125 MCG TAB PO SCH (06:10)
[2018-12-05] MEDS: HYDROcodone/APAP 15 ML SOLUTION PO PRN (06:13)
[2018-12-05] MEDS: ALBUTEROL NEBULIZED 2.5 MG/3 ML INHALATION SCH ×4 (08:59→21:15)
[2018-12-05] MEDS: PANTOPRAZOLE 40 MG/10 ML VIAL IV SCH (09:26)
[2018-12-05] MEDS: amLODIPine 10 MG TAB PO SCH (09:26)
[2018-12-05] MEDS: NYSTATIN 100,000 UNIT/GM POWD 15 GM TOPICAL SCH ×2 (09:26→19:50)
--- NOTE | 2018-12-05 10:24 | P.PN ---
Subjective Progress Note Date: 12/05/18 CHIEF COMPLAINT: Morbid obesity HISTORY OF PRESENT ILLNESS: The patient is a 58-year-old female status post sleeve gastrectomy, 12/01/2018. POD 4. She reports new moderate reflux. She still has dumping. She is voiding spontaneously. "I have an air bubble in my chest." She reports trouble swallowing her pills. ROS: No fevers or chills. No productive sputum PHYSICAL EXAM: VITAL SIGNS: Reviewed CONSTITUTIONAL: Well developed and in no acute distress. EYES: Conjuctivae without sclera icterus. Extraocular movements grossly intact. HEAD, EARS, NOSE, THROAT: Moist buccal mucosa. Head is atraumatic, normocephalic. Hears conversational speech. No nasal drainage. NECK: Supple. No thyroidomegaly. RESPIRATORY: Non-labored respirations and equal bilateral excursions. CARDIOVASCULAR: Palpable 2+ radial pulses. Regular rate. Regular rhythm. ABDOMEN: Incisions clean dry and intact. Soft. MUSCULOSKELETAL: No gross deformity of the lower extremities noted. No clubbing. No cyanosis. SKIN: Good skin turgor. Well perfused. NEUROLOGIC: Cranial nerves I through XII grossly intact. No focal or lateralizing signs. PSYCH: Appropriate affect. Alert and oriented to person, place and time. CLINCAL LABS: White blood cell count normal ASSESSMENT: 1. Morbid obesity 2. Status post sleeve gastrectomy 3. Gastroesophageal reflux PLAN: 1. Start simethicone for gas 2. I educated her on avoiding large gulps with small sips of water 3. Start Stage II bariatric diet with protein shakes 4. Medication review for crush, cut or open capsules anything larger than a tic tac Objective - Vital Signs Vital signs: Vital Signs Temp 98.3 F 12/05/18 07:10 Pulse 72 12/05/18 09:09 Resp 15 12/05/18 07:10 BP 111/69 12/05/18 07:10 Pulse Ox 95 12/05/18 07:10 Intake & Output 12/04/18 12/05/18 12/05/18 18:59 06:59 18:59 Intake Total 1590 240 180 Balance 1590 240 180 Intake: Intake, IV Titration 750 Amount 0.9% NaCl with KCl 20 Meq 650 /l 1,000 ml @ 100 mls/hr IV .Q10H [facility] Rx#: [id number] levETIRAcetam IV 1,000 mg 100 In Saline 1 100ml.bag @ 400 mls/hr IVPB Q12HR [facility] Rx#:[id number] Oral 840 240 180 Other: Voiding Method Toilet # Voids 3 1 # Bowel Movements 2 2 - Labs CBC & Chem 7: 12/03/18 09:40 12/03/18 09:40 Assessment and Plan (1) Morbid obesity due to excess calories Current Visit: Yes Status: Acute Code(s): E66.01 - MORBID (SEVERE) OBESITY DUE TO EXCESS CALORIES SNOMED Code(s): 639233096 (2) Adult BMI 45.0-49.9 kg/sq m Current Visit: Yes Status: Acute Code(s): Z68.42 - BODY MASS INDEX (BMI) 45.0-49.9, ADULT SNOMED Code(s): 426218782 (3) Homeless single person Current Visit: Yes Status: Acute Code(s): Z59.0 - HOMELESSNESS SNOMED Code(s): 555686889 (4) Dumping syndrome Current Visit: Yes Status: Acute Code(s): K91.1 - POSTGASTRIC SURGERY SY NDROMES SNOMED Code(s): 37619221 (5) Sleep apnea Current Visit: Yes Status: Acute Code(s): G47.30 - SLEEP APNEA, UNSPECIFIED SNOMED Code(s): 62462250 (6) HTN (hypertension) Current Visit: No Status: Acute Code(s): I10 - ESSENTIAL (PRIMARY) HYPERTENSION SNOMED Code(s): 53107465 (7) Seizure disorder Current Visit: No Status: Acute Code(s): G40.909 - EPILEPSY, UNSP, NOT INTRACTABLE, WITHOUT STATUS EPILEPTICUS SNOMED Code(s): 868585268 (8) Uncontrolled seizures Current Visit: No Status: Acute Code(s): R56.9 - UNSPECIFIED CONVULSIONS SNOMED Code(s): 85137470
[2018-12-05] MEDS: levETIRAcetam IV 1,000 MG in SALINE 1 100ML.BAG IVPB SCH ×2 (10:32→19:49)
[2018-12-05] MEDS: HYOSCYAMINE ORAL DROPS 1.875 MG/15 ML BOTTLE PO SCH ×4 (11:59→23:21)
[2018-12-05] MEDS: SIMETHICONE 40 MG/0.6 ML DROPS 2,000 MG/30 ML BOTTLE PO SCH ×3 (11:59→23:21)
[2018-12-05] MEDS: RANITIDINE SYRUP 150 MG/10 ML CUP PO SCH (11:59)
[2018-12-05] MEDS: ENOXAPARIN 40 MG/0.4 ML SYRINGE SQ SCH ×2 (12:00→23:21)
[2018-12-05] MEDS: DEXAMETHASONE SOD PHOSPHATE 4 MG/ML 1 ML VIAL IV SCH ×3 (12:02→23:21)
[2018-12-05 21:20] LABS: Glucose,Whole Blood 142 mg/dL (75-99)
[2018-12-06] MEDS: HYDROcodone/APAP 15 ML SOLUTION PO PRN ×3 (01:04→13:16)
--- NOTE | 2018-12-06 01:18 | PN ---
PROGRESS NOTE SUBJECTIVE: 58-year-old white female, status post gastric sleeve, hiatal hernia. No chest pain. No shortness of breath. She needs to go to her physical therapy and rehab center. She is unable to go home. She has no home care. Cardiovascular: S1-S2. Lungs: Transmitted upper airway sounds. Hematology negative Homans. Psych: Fair mood and affect. ASSESSMENT: 1. Morbid obesity. 2. Status post gastric sleeve. 3. Hiatal hernia. Continue current treatment. Follow up in the next 24-48 hours. Ambulate as tolerated. MMODL / IJN: [id number] /
[2018-12-06] MEDS: 0.9% NACL WITH KCL 20 MEQ/L 1,000 ML IV SCH ×2 (02:16→11:58)
[2018-12-06] MEDS: DEXAMETHASONE SOD PHOSPHATE 4 MG/ML 1 ML VIAL IV SCH ×2 (05:09→12:30)
[2018-12-06] MEDS: HYOSCYAMINE ORAL DROPS 1.875 MG/15 ML BOTTLE PO SCH ×3 (05:09→12:29)
[2018-12-06] MEDS: LEVOTHYROXINE 125 MCG TAB PO SCH (05:10)
[2018-12-06] MEDS: LACTATED RINGERS 1,000 ML IV SCH (05:12)
[2018-12-06 07:20] LABS: Glucose,Whole Blood 134 mg/dL (75-99)
[2018-12-06] MEDS: NYSTATIN 100,000 UNIT/GM POWD 15 GM TOPICAL SCH (07:33)
[2018-12-06] MEDS: SIMETHICONE 40 MG/0.6 ML DROPS 2,000 MG/30 ML BOTTLE PO SCH ×2 (07:46→12:29)
[2018-12-06] MEDS: PANTOPRAZOLE 40 MG/10 ML VIAL IV SCH ×2 (07:46→07:47)
[2018-12-06] MEDS: amLODIPine 10 MG TAB PO SCH (07:47)
[2018-12-06] MEDS: RANITIDINE SYRUP 150 MG/10 ML CUP PO SCH (07:47)
[2018-12-06] MEDS: levETIRAcetam IV 1,000 MG in SALINE 1 100ML.BAG IVPB SCH (07:47)
[2018-12-06] MEDS: ALBUTEROL NEBULIZED 2.5 MG/3 ML INHALATION SCH ×2 (08:04→11:07)
[2018-12-06 08:06] VITALS: BP 150/86; RESP 16; TEMP 97.9
[2018-12-06 11:17] VITALS: PULSE 67
[2018-12-06 11:31] LABS: Glucose,Whole Blood 120 mg/dL (75-99)
[2018-12-06] MEDS: ENOXAPARIN 40 MG/0.4 ML SYRINGE SQ SCH (12:30)
--- NOTE | 2018-12-06 12:57 | P.DS ---
Providers Date of admission: 12/01/18 13:41 Expected date of discharge: 12/06/18 Attending physician: Blayne Sethi Consults: 12/01/18 13:23 Consult Physician Routine Consulting Provider: Júnior Hancock Consult Reason/Comments: Management Do you want consulting provider notified?: Yes Primary care physician: Júnior Hancock [facility] Course: 58-year-old female who underwent laparoscopic sleeve gastrectomy and repair of hiatal hernia. Patient doing well postoperatively. Patient was started on decadron POD #1 secondary to moderate obstruction visualized on esophagram. She has been tolerating clear liquid diet. Patient has poor understand of bariatric diet and required re-education on multiple occasions. She was experiencing reflux postoperatively he was started on Zantac with stated improvement. She is stable for discharge to [facility] today for subacute rehab. Discharge Diagnosis: 1. Morbid obesity, status post laparoscopic sleeve gastrectomy and repair of hiatal hernia 2. Postoperative edema causing moderate obstruction, an expected outcome of sleeve gastrectomy Nurse practitioner note has been reviewed by physician. Signing provider agrees with the documented findings, assessment, and plan of care. Plan - Discharge Summary Discharge Rx Participant: Yes New Discharge Prescriptions: New Sucralfate [Carafate] 1 gm PO BID #500 ml Bisacodyl [Dulcolax] 5 mg PO DAILY PRN #10 tablet. PRN Reason: Constipation Simethicone 40 mg/0.6 ml Drops [Mylicon Drops] 40 mg PO PCHS PRN #30 ml PRN Reason: gas HYDROcodone/APAP [[place] Elixir 7.5-325Mg/15Ml] 15 ml PO Q6HR PRN 3 Days #180 ml PRN Reason: Pain Ondansetron Odt [Zofran Odt] 4 mg PO Q8HR PRN #9 tab PRN Reason: Nausea Ranitidine Syrup [Zantac Syrup] 150 mg PO DAILY ml Continue rOPINIRole HCL 5 mg PO BID Levothyroxine Sodium [Synthroid] 125 mcg PO QAM amLODIPine [Norvasc] 10 mg PO QAM Meclizine [Antivert] 25 mg PO TID Loratadine [Claritin] 10 mg PO DAILY Montelukast [Singulair] 10 mg PO HS Lovastatin [Mevacor] 40 mg PO DAILY levETIRAcetam [Keppra] 1,000 mg PO Q12HR Gabapentin [Neurontin] 300 mg PO TID #9 cap Discontinued Potassium Chloride [Klor-Con 20] 20 meq PO DAILY Aspirin EC [Ecotrin Low Dose] 81 mg PO DAILY Furosemide [Lasix] 20 mg PO BID HYDROcodone/APAP 10-325MG [[place] 10-325] 1 tab PO QID PRN PRN Reason: Pain Losartan Potassium 100 mg PO HS Discharge Medication List rOPINIRole HCL 5 mg PO BID 02/04/16 [History] Levothyroxine Sodium [Synthroid] 125 mcg PO QAM 05/11/18 [History] Loratadine [Claritin] 10 mg PO DAILY 06/28/18 [History] Meclizine [Antivert] 25 mg PO TID 06/28/18 [History] amLODIPine [Norvasc] 10 mg PO QAM 06/28/18 [History] Lovastatin [Mevacor] 40 mg PO DAILY 07/19/18 [History] Montelukast [Singulair] 10 mg PO HS 07/19/18 [History] levETIRAcetam [Keppra] 1,000 mg PO Q12HR 11/24/18 [History] Bisacodyl [Dulcolax] 5 mg PO DAILY PRN #10 tablet. 12/03/18 [Rx] HYDROcodone/APAP [[place] Elixir 7.5-325Mg/15Ml] 15 ml PO Q6HR PRN 3 Days #180 ml 12/03/18 [Rx] Ondansetron Odt [Zofran Odt] 4 mg PO Q8HR PRN #9 tab 12/03/18 [Rx] Simethicone 40 mg/0.6 ml Drops [Mylicon Drops] 40 mg PO PCHS PRN #30 ml 12/03/18 [Rx] Sucralfate [Carafate] 1 gm PO BID #500 ml 12/03/18 [Rx] Gabapentin [Neurontin] 300 mg PO TID #9 cap 12/06/18 [Rx] Ranitidine Syrup [Zantac Syrup] 150 mg PO DAILY ml 12/06/18 [Rx] Follow up Appointment(s)/Referral(s): Bariatric Center,. [NON-STAFF] - 12/13/18 1:00 pm Activity/Diet/Wound Care/Special Instructions: All pills larger than a tic tac must be crushed and put in apple sauce. If medication is a capsule, open medication and mix contents with applesauce No lifting over 10 pounds You may shower. No soaking or tub baths Very light activity until you are reevaluated at your follow up appointment with your surgeon bariatric full liquid diet. No straws. No carbonated beverages. Discharge Disposition: TRANSFER TO SNF/ECF
--- NOTE | 2018-12-06 13:29 | P.PN ---
Subjective Progress Note Date: 12/06/18 This is a 58-year-old female with history of morbid obesity, BMI 45.7 and hiatal hernia status post laparoscopic sleeve gastrectomy and hiatal hernia repair. Tolerated procedure well. Currently complaining of abdominal pain, bilateral shoulder pain. Hypertensive. Incentive spirometer up to 1000. Reports nausea vomiting during the night, subsided. Esophagram pending. Afebrile, WBC 14.3. Maintained on Decadron. Denies chest pain, palpitations or increased shortness of breath. Afebrile, WBC 14.3. 12/03/2018 Decadron initiated yesterday secondary to moderate obstruction per esophagram. Improvement in both nausea and pain. No further emesis. Evaluated by physical therapy and patient has been accepted at subacute rehab. Afebrile, normal WBC 12/06/2018 significant improvement on Decadron, Zantac. Scheduled for discharge to subacute rehab today as per surgery.VSS. Blood sugars stable. Objective - Vital Signs Vital signs: Vital Signs Temp 97.9 F 12/06/18 07:00 Pulse 67 12/06/18 11:16 Resp 16 12/06/18 07:00 BP 150/86 12/06/18 07:00 Pulse Ox 95 12/06/18 07:00 Intake & Output 12/05/18 12/06/18 12/06/18 18:59 06:59 18:59 Intake Total 820 490 Balance 820 490 Weight 132.449 kg Intake: Oral 820 490 Other: Voiding Method Toilet # Voids 2 3 # Bowel Movements 1 - Exam VITAL SIGNS: As above GENERAL: Sitting up in bed, alert and oriented 3, no acute distress HEENT: Conjunctivae normal. eyes normal. NECK: No JVD. No thyroid enlargement. No LNs CARDIOVASCULAR: S1, S2 regular. No murmur RESPIRATION: Breath sounds diminished in the bases. No rhonchi or crackles. No bronchial breathing. ABDOMEN: Soft, nondistended, status post surgery. Laparoscopic surgical sites well approximated, clean and dry .positive Bowel sounds heard. LEGS: No edema. no swelling NERVOUS SYSTEM: Cranial N 2-12 grossly normal. Moves all 4 limbs. Diffuse weakness No focal deficits. Strength and sensation grossly intact.. - Labs CBC & Chem 7: 12/03/18 09:40 12/03/18 09:40 Labs: Abnormal Lab Results - Last 24 Hours (Table) 12/05/18 12/06/18 12/06/18 Range/Units 21:16 07:18 11:30 POC Glucose (mg/dL) 142 H 134 H 120 H (75-99) mg/dL Assessment and Plan Assessment: -Morbid obesity, BMI 45.7, status post laparoscopic sleeve gastrectomy. -Moderate obstruction per Esophagram, secondary to postoperative edema, on Decadron -Hiatal hernia, status post repair -Hypertension -Seizure disorder -Sleep apnea, wears CPAP/BiPAP -Hypothyroidism Plan: Continue current medication regime ,monitoring and symptomatic treatment. Discharge planning in progress for today to subacute rehab as per surgery. Continue with aggressive pulmonary toileting using incentive spirometer every hour 10 as advised. Increase activity as tolerated. Pain management as per surgery. Thank you Dr. Sethi for the consult. The impression and plan of care has been dictated as directed. : I performed a history and examination of this patient, discussed the same with the dictator. I agree with the dictator's note ,documented as a scribe. Any additional findings or plans will be noted.
== END 2018-12-06 13:48 | DRG 621 ==
LOC: 4SSUR 13:41
PROVIDERS: ADMIT Surgery; ATTEND Surgery
PROC: 5A09457 Assistance with Respiratory Ventilation, 24-96 Consecutive Hours, Continuous Positive Airway Pressure (ICD-10-PCS; 2018-12-01)
PROC: 0DB64Z3 Excision of Stomach, Percutaneous Endoscopic Approach, Vertical (ICD-10-PCS; principal; 2018-12-01 11:45)
PROC: 0BQT4ZZ Repair Diaphragm, Percutaneous Endoscopic Approach (ICD-10-PCS; 2018-12-01 11:45)
DX: E66.01 Morbid (severe) obesity due to excess calories (principal); I11.0 Hypertensive heart disease with heart failure; I50.9 Heart failure, unspecified; K91.1 Postgastric surgery syndromes; Z68.42 Body mass index [BMI] 45.0-49.9, adult; K44.9 Diaphragmatic hernia without obstruction or gangrene; G40.909 Epilepsy, unspecified, not intractable, without status epilepticus; E03.9 Hypothyroidism, unspecified; K21.9 Gastro-esophageal reflux disease without esophagitis; E78.5 Hyperlipidemia, unspecified; G47.30 Sleep apnea, unspecified; G25.81 Restless legs syndrome; M19.90 Unspecified osteoarthritis, unspecified site; G89.29 Other chronic pain; R29.6 Repeated falls; M54.9 Dorsalgia, unspecified; M54.2 Cervicalgia; F89 Unspecified disorder of psychological development; F32.9 Major depressive disorder, single episode, unspecified; Z79.82 Long term (current) use of aspirin; Z79.890 Hormone replacement therapy; Z79.899 Other long term (current) drug therapy; Z99.89 Dependence on other enabling machines and devices; Z71.3 Dietary counseling and surveillance; Z87.01 Personal history of pneumonia (recurrent); Z90.49 Acquired absence of other specified parts of digestive tract; Z98.890 Other specified postprocedural states; Z90.710 Acquired absence of both cervix and uterus; Z98.1 Arthrodesis status; Z59.0 Homelessness; Z91.040 Latex allergy status; Z88.0 Allergy status to penicillin; Z88.8 Allergy status to other drugs, medicaments and biological substances; Z91.048 Other nonmedicinal substance allergy status; Z80.0 Family history of malignant neoplasm of digestive organs
CPT/HCPCS: 74240; 80048; 80051; 82310; 82565; 83735; 84100; 84520; 85025; 88307; 93005; 94640; 94760; 94762

== ENCOUNTER → 2018-12-13 | Outpatient (CLI) | payer MEDICARE, OTHER ==
[2018-12-13 13:10] VITALS: BP 133/80; PULSE 83; TEMP 98; BMI 43.8
--- NOTE | 2018-12-13 13:34 | P.HPBAR ---
Bariatric H&P - History & Physicial H&P Date: 12/13/18 History & Physicial: Visit/CC: sleeve follow up Patient initial contact: Initial weight: 137.438 kg Initial weight in pounds: 303.00 Height: 5 ft 7 in Initial BMI: 47.4 Last weight: Current weight: 127.006 kg Current weight in pounds: 280.00 Current BMI: 43.8 [place] body weight (based on NIH guidelines): 61.235 kg Excess body weight loss: 13.6% The patient is a 58 year-old F who presents for Bariatric Assessment. Patient presents today for postoperative follow-up. She has been doing well. She complaints of some minor foot swelling. She states that she has a dry mouth sometimes. She denies any significant abdominal pain. Past Medical History Past Medical History: Chest Pain / Angina, Heart Failure, Hyperlipidemia, Hypertension, Osteoarthritis (OA), Pneumonia, Seizure Disorder, Skin Disorder, Sleep Apnea/CPAP/BIPAP, Thyroid Disorder Additional Past Medical History / Comment(s): LAST KNOWN SEIZURE a couple months ago. developementally disabled, restless leg syndrme, cervical and back pain with pain down bilateral legs, leg weakness, occasional numbness and tingling to bilateral hands and feet,cpap used currently, abdominal pain. (diarrhea)- right after eating, states has had recent falls, persistant itching-cause unknown, sees pain specialist for chronic pain (entire body) History of Any Multi-Drug Resistant Organisms: None Reported Past Surgical History: Adenoidectomy, Bariatric Surgery, Cholecystectomy, Heart Catheterization, Hysterectomy, Tonsillectomy Additional Past Surgical History / Comment(s): cervical surgery/cage sleeve gastrectomy 12-01-18 Past Anesthesia/Blood Transfusion Reactions: No Reported Reaction Additional Past Anesthesia/Blood Transfusion Reaction / Comm: states "was told by my sister's boyfriend that I had trouble breathing and almost during my neck surgery",no hx blood transfusion Date of Last Stent Placement:: 06/03/2014 Past Psychological History: Depression Additional Psychological History / Comment(s): Pt states she currently resides with her sister. She is mildly developmentally delayed. She states she has had falls and that her sister's home is too small for her to be able to use any assistive devices. states she signs own consents with sister being coguardian as well and able to assist with explanations and signatures if needed-to bring legal documents day of surgery Smoking Status: Never smoker Past Alcohol Use History: None Reported Additional Past Alcohol Use History / Comment(s): . Past Drug Use History: None Reported - Past Family History Father Family Medical History: Cancer Additional Family Medical History / Comment(s): stomach Sister(s) Family Medical History: Cancer Additional Family Medical History / Comment(s): stomach CA Mother Family Medical History: No Reported History Additional Family Medical History / Comment(s): . Surgical - Exam Vital Signs Temp Pulse BP 98.0 F 83 133/80 12/13/18 13:06 12/13/18 13:06 12/13/18 13:06 - General well developed, well nourished, no distress - Eyes PERRL - ENT normal pinna - Neck no masses - Respiratory normal expansion - Cardiovascular Rhythm: regular - Abdomen Abdomen: soft, non tender Bariatric Assessment & Plan Plan: Status post sleeve gastrectomy. Patient still quite well. She is encouraged to increase her oral intake. She'll follow-up in 2 weeks. Bariatric Checklist Checklist: Plan: Checklist: EGD: 1. Hiatal hernia: 2. H. Pylori: HgbA1c: Vitamin D: Smoking: Never smoker Primary care physician referral: PCP Barbara Carter=Dr.Rina Pulmonologis t[facility] clearance: Cardiology clearance: Sleep study: Diet journal: VTE risk score: VTE risk level: Rehab needs at discharge:
== END | disposition home or self-care (01) ==
LOC: BARWHC3 12:29
PROVIDERS: ATTEND Surgery
DX: Z48.815 Encounter for surgical aftercare following surgery on the digestive system (principal); E66.01 Morbid (severe) obesity due to excess calories; Z68.41 Body mass index [BMI] 40.0-44.9, adult; Z90.3 Acquired absence of stomach [part of]; Z90.49 Acquired absence of other specified parts of digestive tract
CPT/HCPCS: 97803; G0463; 99211

== ENCOUNTER → 2019-01-03 | Outpatient (CLI) | payer MEDICARE, OTHER ==
[2019-01-03 13:41] VITALS: BP 136/82; PULSE 78; TEMP 98.4; BMI 42.0
--- NOTE | 2019-01-03 16:22 | P.HPBAR ---
Bariatric H&P - History & Physicial H&P Date: 01/03/19 History & Physicial: Visit/CC: one month post sleeve Patient initial contact: Initial weight: 137.438 kg Initial weight in pounds: 303.00 Height: 5 ft 7 in Initial BMI: 47.4 Last weight: Current weight: 121.926 kg Current weight in pounds: 268.80 Current BMI: 42.0 [place] body weight (based on NIH guidelines): 61.235 kg Excess body weight loss: 20.3% The patient is a 58 year-old F who presents for Bariatric Assessment. The jenny ent presents today for gastric sleeve follow-up. She's had some minimal GERD. She has no other complaints. Past Medical History Past Medical History: Chest Pain / Angina, Heart Failure, Hyperlipidemia, Hypertension, Osteoarthritis (OA), Pneumonia, Seizure Disorder, Skin Disorder, Sleep Apnea/CPAP/BIPAP, Thyroid Disorder Additional Past Medical History / Comment(s): LAST KNOWN SEIZURE a couple months ago. developementally disabled, restless leg syndrme, cervical and back pain with pain down bilateral legs, leg weakness, occasional numbness and tingling to bilateral hands and feet,cpap used currently, abdominal pain. (diarrhea)- right after eating, states has had recent falls, persistant itching-cause unknown, sees pain specialist for chronic pain (entire body) History of Any Multi-Drug Resistant Organisms: None Reported Past Surgical History: Adenoidectomy, Bariatric Surgery, Cholecystectomy, Heart Catheterization, Hysterectomy, Tonsillectomy Additional Past Surgical History / Comment(s): cervical surgery/cage sleeve gastrectomy 12-01-18 Past Anesthesia/Blood Transfusion Reactions: No Reported Reaction Additional Past Anesthesia/Blood Transfusion Reaction / Comm: states "was told by my sister's boyfriend that I had trouble breathing and almost during my neck surgery",no hx blood transfusion Date of Last Stent Placement:: 06/03/2014 Smoking Status: Never smoker - Past Family History Father Family Medical History: Cancer Additional Family Medical History / Comment(s): stomach Sister(s) Family Medical History: Cancer Additional Family Medical History / Comment(s): stomach CA Mother Family Medical History: No Reported History Additional Family Medical History / Comment(s): . Surgical - Exam Vital Signs Temp Pulse BP 98.4 F 78 136/82 01/03/19 13:33 01/03/19 13:33 01/03/19 13:33 - General well developed, well nourished, no distress - Eyes PERRL - Abdomen Abdomen: soft, non tender Bariatric Assessment & Plan Plan: Status post sleeve gastrectomy. Patient is an excellent weight loss. Her GERD is minimal old observed. She'll follow-up in 4 weeks. Bariatric Checklist Checklist: Plan: Checklist: EGD: 1. Hiatal hernia: 2. H. Pylori: HgbA1c: Vitamin D: Smoking: Never smoker Primary care physician referral: PCP Barbara Carter=, [facility] [employer] Engineer=[facility] clearance: Cardiology clearance: Sleep study: Diet journal: VTE risk score: VTE risk level: Rehab needs at discharge:
== END | disposition home or self-care (01) ==
LOC: BARWHC3 12:08
PROVIDERS: ATTEND Surgery
DX: Z48.815 Encounter for surgical aftercare following surgery on the digestive system (principal); K21.9 Gastro-esophageal reflux disease without esophagitis; E66.01 Morbid (severe) obesity due to excess calories; Z68.41 Body mass index [BMI] 40.0-44.9, adult; Z98.84 Bariatric surgery status; Z90.710 Acquired absence of both cervix and uterus; Z90.49 Acquired absence of other specified parts of digestive tract
CPT/HCPCS: 97803; G0463; 99211

== ENCOUNTER → 2019-01-04 | Outpatient (CLI) | payer MEDICARE, OTHER ==
[2019-01-04 13:12] LABS: HGB 14.3 gm/dL (11.4-16.0); MCH 28.8 pg (25.0-35.0); MCHC 32.4 g/dL (31.0-37.0); MCV 88.9 fL (80.0-100.0); Mean Platelet Volume 7.3; Platelet Count 368 k/uL (150-450); RBC 4.95 m/uL (3.80-5.40); RDW 15.4 % (11.5-15.5); WBC 10.6 k/uL (3.8-10.6)
[2019-01-04 18:22] LABS: African American GFR (CKD) 112.3 (60.0-200.0); Albumin 4.5 g/dL (3.80-4.90); Albumin/Globulin Ratio 2.37 (1.60-3.17); Anion Gap 12.3 mmol/L (4.00-12.00); BUN/Creat Ratio 14.29 Ratio (12.00-20.00); Calcium 9.9 mg/dL (8.7-10.3); Carbon Dioxide 25.7 mmol/L (21.6-31.8); Globulin 1.9 g/dL (1.6-3.3); Potassium 3.8 mmol/L (3.5-5.5); Total Bilirubin 0.4 mg/dL (0.3-1.2); Total Protein 6.4 g/dL (6.2-8.2)
[2019-01-04 18:30] LABS: Vitamin D 25 Hydroxy 15.2 ng/mL (30.0-100.0)
== END | disposition home or self-care (01) ==
LOC: LABWHC1 12:15
PROVIDERS: ATTEND Surgery Plastic and Reconstructive Surgery
DX: E66.01 Morbid (severe) obesity due to excess calories (principal); E55.9 Vitamin D deficiency, unspecified
CPT/HCPCS: 36415; 80053; 82306; 82607; 84425; 85027

== ENCOUNTER → 2019-01-31 | Outpatient (CLI) | payer MEDICARE, OTHER ==
[2019-01-31 14:37] VITALS: BP 136/99; PULSE 93; TEMP 97.7; BMI 40.7
--- NOTE | 2019-01-31 16:52 | P.HPBAR ---
Bariatric H&P - History & Physicial H&P Date: 01/31/19 History & Physicial: Visit/CC: sleeve f/u (sx 12/01/18) Patient initial contact: Initial weight: 137.438 kg Initial weight in pounds: 303.00 Height: 5 ft 7 in Initial BMI: 47.4 Last weight: Current weight: 117.934 kg Current weight in pounds: 260.00 Current BMI: 40.7 [place] body weight (based on NIH guidelines): 61.235 kg Excess body weight loss: 25.5% The patient is a 58 year-old F who presents for Bariatric Assessment. Patient presents today for sleeve gastrectomy follow-up. She's had some minimal GERD. She denies a significant dysphagia. Past Medical History Past Medical History: Chest Pain / Angina, Heart Failure, Hyperlipidemia, Hypertension, Osteoarthritis (OA), Pneumonia, Seizure Disorder, Skin Disorder, Sleep Apnea/CPAP/BIPAP, Thyroid Disorder Additional Past Medical History / Comment(s): LAST KNOWN SEIZURE a couple months ago. developementally disabled, restless leg syndrme, cervical and back pain with pain down bilateral legs, leg weakness, occasional numbness and tingling to bilateral hands and feet,cpap used currently, abdominal pain. (diarrhea)- right after eating, states has had recent falls, persistant itching-cause unknown, sees pain specialist for chronic pain (entire body) History of Any Multi-Drug Resistant Organisms: None Reported Past Surgical History: Adenoidectomy, Bariatric Surgery, Cholecystectomy, Heart Catheterization, Hysterectomy, Tonsillectomy Additional Past Surgical History / Comment(s): cervical surgery/cage sleeve gastrectomy 12-01-18 Past Anesthesia/Blood Transfusion Reactions: No Reported Reaction Additional Past Anesthesia/Blood Transfusion Reaction / Comm: states "was told by my sister's boyfriend that I had trouble breathing and almost during my neck surgery",no hx blood transfusion Date of Last Stent Placement:: 06/03/2014 Past Psychological History: Depression Additional Psychological History / Comment(s): Pt states she currently resides with her sister. She is mildly developmentally delayed. She states she has had falls and that her sister's home is too small for her to be able to use any assistive devices. states she signs own consents with sister being coguardian as well and able to assist with explanations and signatures if needed-to bring legal documents day of surgery Smoking Status: Never smoker Past Alcohol Use History: None Reported Additional Past Alcohol Use History / Comment(s): . Past Drug Use History: None Reported - Past Family History Father Family Medical History: Cancer Additional Family Medical History / Comment(s): stomach Sister(s) Family Medical History: Cancer Additional Family Medical History / Comment(s): stomach CA Mother Family Medical History: No Reported History Additional Family Medical History / Comment(s): . Surgical - Exam Vital Signs Temp Pulse BP 97.7 F 93 136/99 01/31/19 14:09 01/31/19 14:09 01/31/19 14:09 - General well developed, well nourished, no distress - Eyes PERRL - ENT normal pinna - Neck no masses - Respiratory normal expansion - Cardiovascular Rhythm: regular - Abdomen Abdomen: soft, non tender Bariatric Assessment & Plan Plan: The patient is an excellent weight loss. Her GERD is minimal was observed. She'll follow-up in 4 weeks. Bariatric Checklist Checklist: Plan: Checklist: EGD: 1. Hiatal hernia: 2. H. Pylori: HgbA1c: Vitamin D: Smoking: Never smoker Primary care physician referral: PCP Barbara Carter=, Dialysis Equipment Technician=[place] Psychiatry clearance: Cardiology clearance: Sleep study: Diet journal: VTE risk score: VTE risk level: Rehab needs at discharge:
== END ==
LOC: BARWHC3 13:43
PROVIDERS: ATTEND Surgery
DX: Z48.815 Encounter for surgical aftercare following surgery on the digestive system (principal); K21.9 Gastro-esophageal reflux disease without esophagitis; Z98.84 Bariatric surgery status; Z90.49 Acquired absence of other specified parts of digestive tract
CPT/HCPCS: 99211

== ENCOUNTER 2019-02-22 12:24 | Emergency (ER) | payer MEDICARE, OTHER ==
[2019-02-22 12:36] VITALS: RESP 18
[2019-02-22 13:29] LABS: Basophils % (A) 1 %; Eosinophils # (A) 0.1 k/uL (0-0.7); Eosinophils % (A) 2 %; HCT 41.1 % (34.0-46.0); HGB 13.7 gm/dL (11.4-16.0); Lymphocytes # (A) 1.8 k/uL (1.0-4.8); Lymphocytes % (A) 20 %; MCH 30.8 pg (25.0-35.0); MCHC 33.3 g/dL (31.0-37.0); MCV 92.5 fL (80.0-100.0); Mean Platelet Volume 6.6; Monocytes # (A) 0.4 k/uL (0-1.0); Monocytes % (A) 4 %; Neutrophils # (A) 6.6 k/uL (1.3-7.7); Neutrophils % (A) 73 %; Platelet Count 328 k/uL (150-450); RBC 4.44 m/uL (3.80-5.40); RDW 14.4 % (11.5-15.5)
--- NOTE | 2019-02-22 13:36 | XR ---
EXAMINATION TYPE: XR chest 2V DATE OF EXAM: 02/22/2019 COMPARISON: 06/28/2018 TECHNIQUE: PA and lateral views submitted. HISTORY: Weakness FINDINGS: The lungs are clear and there is no pneumothorax, pleural effusion, or focal pneumonia. Heart is en larged and is postsurgical change overlying the cervical spine. No overt failure. Degenerative change of the spine. IMPRESSION: 1. No acute process.
[2019-02-22 13:37] LABS: ALT 29 U/L (9-52); AST 35 U/L (14-36); African American GFR (CKD) >90 (>60 ml/min/1.73 sqM); Albumin 4.4 g/dL (3.5-5.0); Alkaline Phosphatase 86 U/L (38-126); Anion Gap 10 mmol/L; Blood Urea Nitrogen 18 mg/dL (7-17); Carbon Dioxide 24 mmol/L (22-30); Chloride 106 mmol/L (98-107); Glucose 108 mg/dL (74-99); Potassium 4.4 mmol/L (3.5-5.1); Sodium 140 mmol/L (137-145); Total Bilirubin 0.6 mg/dL (0.2-1.3); Total Protein 7.4 g/dL (6.3-8.2)
[2019-02-22 13:46] LABS: Prothrombin Time 10.6 sec (9.0-12.0)
[2019-02-22 13:56] LABS: Partial Thromboplastin Time 21.6 sec (22.0-30.0)
[2019-02-22 14:28] LABS: Appearance,Urine Cloudy (Clear); Bilirubin,Urine Negative (Negative); Blood,Urine Negative (Negative); Color,Urine Yellow; Glucose,Urine (UA) Negative (Negative); Hyaline Casts,Urine 123 /lpf (0-2); Ketones,Urine Negative (Negative); Leukocyte Esterase,Urine Trace (Negative); Mucus,Urine Many /hpf; Nitrite,Urine Negative (Negative); Protein,Urine Trace (Negative); RBC,Urine 4 /hpf (0-5); Specific Gravity,Urine 1.019 (1.001-1.035); Squamous Epithelial Cell,Urine 6 /hpf (0-4); Urobilinogen,Urine <2.0 mg/dL (<2.0); WBC,Urine 5 /hpf (0-5)
--- NOTE | 2019-02-22 15:08 | CT ---
EXAMINATION TYPE: CT abdomen pelvis w con DATE OF EXAM: 02/22/2019 COMPARISON: 06/26/2016 HISTORY: 58-year-old female nausea mid abdominal pain TECHNIQUE: Contiguous axial scanning of the abdomen and pelvis following administration of 100 ml Iso pamela 300 IV contrast. Delayed images through the kidneys and coronal/sagittal reconstructions perform ed. CT DLP: 1972 mGycm Automated exposure control for dose reduction was used. FINDINGS: The heart is upper limits of normal in size without pericardial effusion. Strandy lower lung atelecta sis without pleural effusion. Status post sleeve gastrectomy. Liver enlarged measuring 20.6 cm. No focal liver lesion or biliary ductal dilatation. Portal venous system is patent. A couple borderline to mildly enlarged charley hepatic lymph nodes measure up to 1 cm versus 8 mm, prev iously. Findings may be reactive/post inflammatory. Gallbladder surgically absent. Adrenal glands, kidneys, spleen, pancreas appear within normal limits. No dilated small bowel or free fluid, or free air. Normal appendix. Prominent focal fluid within the lower ascending colon with circumferential wall thickening. No signi ficant stool burden on the left side of the colon. No perihepatic inflammatory change. Bladder nondistended. Left ovary is visualized. Right ovary not clearly delineated from bowel loops. Uterus surgically absent. No abnormal fluid collection in the pelvis or pelvic lymphadenopathy. Bones: Degenerative disc disease and facet arthropathy lower lumbar spine. IMPRESSION: 1. PROMINENT FLUID WITHIN THE LOWER ASCENDING COLON WITH NONSPECIFIC WALL THICKENING. CORRELATE FOR L OCALIZED NONSPECIFIC COLITIS. 2. HEPATOMEGALY (20.6 CM). 3. A COUPLE BORDERLINE TO MILDLY ENLARGED CHARLEY HEPATIC LYMPH NODES MEASURE UP TO 1 CM VERSUS 8 MM IN 2017. SUSPECT CHRONIC POSTINFLAMMATORY ETIOLOGY. CONSIDER 6 MONTH FOLLOW-UP CT TO REASSESS.
--- NOTE | 2019-02-22 15:40 | ED ---
Nausea/Vomiting/Diarrhea HPI - General Chief complaint: Nausea/Vomiting/Diarrhea Stated complaint: ABNORMAL LABS, POSS DEHYDRATION, POSS INFECTION Time Seen by Provider: 02/22/19 12:38 Source: patient Mode of arrival: ambulatory Limitations: no limitations - History of Present Illness Initial comments: 58yo female presenting for reevaluation of possible dehydration, infection. Patient states she was recently admitted and discharged from [facility]. She states she was admitted for possible infection, dehydration abnormal labs. Patient is on able to elaborate she states she is unsure what the upper abnormalities were. Patient states she has had nausea for the past 7 days including prior to and upon discharge from [facility]. She states she had one episode of vomiting. She states she has had loose stools. Patient states she has had some mild abdominal cramping. Patient denies melena hematochezia cheesy a hematemesis, fevers. Patient denies any chest pain shortness of breath. Patient is unsure where her source infection denies any upper respiratory infection symptoms denies dysuria urgency frequency or hematuria. Patient has no other complaints upon arrival she appears well nontoxic no signs of acute distress. - Related Data Home Medications Medication Instructions Recorded Confirmed rOPINIRole HCL 5 mg PO BID 02/04/16 02/22/19 Levothyroxine Sodium [Synthroid] 125 mcg PO QAM 05/11/18 02/22/19 Loratadine [Claritin] 10 mg PO DAILY 06/28/18 02/22/19 Meclizine [Antivert] 25 mg PO Q8H 06/28/18 02/22/19 amLODIPine [Norvasc] 10 mg PO QAM 06/28/18 02/22/19 Lovastatin [Mevacor] 40 mg PO DAILY 07/19/18 02/22/19 Montelukast [Singulair] 10 mg PO HS 07/19/18 02/22/19 levETIRAcetam [Keppra] 1,000 mg PO Q12HR 11/24/18 02/22/19 Aspirin EC [Ecotrin Low Dose] 81 mg PO DAILY 02/22/19 02/22/19 Furosemide [Lasix] 20 mg PO BID 02/22/19 02/22/19 HYDROcodone/APAP 10-325MG [[place] 1 tab PO Q6H PRN 02/22/19 02/22/19 10-325] Losartan Potassium 50 mg PO PC-SUPPER 02/22/19 02/22/19 Nystatin 100,000 Unit/gm Powd 1 applic TOPICAL DAILY 02/22/19 02/22/19 [Mycostatin Powder] Previous Rx's Medication Instructions Recorded Gabapentin [Neurontin] 300 mg PO TID #9 cap 12/06/18 Sulfamethox-Tmp 800-160Mg [Bactrim 1 tab PO Q12HR 10 Days #20 tab 02/22/19 DS 800-160 mg] metroNIDAZOLE [Flagyl] 500 mg PO Q8HR 10 Days #30 tab 02/22/19 Allergies Allergy/AdvReac Type Severity Reaction Status Date / Time adhesive Allergy Rash/Hives Verified 02/22/19 14:20 buspirone [From BuSpar] Allergy Itching Verified 02/22/19 14:20 divalproex sodium Allergy Rash/Hives Verified 02/22/19 14:20 [From Depakote] ibuprofen [From Motrin] Allergy Rash/Hives Verified 02/22/19 14:20 latex Allergy Rash/Hives Verified 02/22/19 14:20 Penicillins Allergy Rash/Hives Verified 02/22/19 14:20 topiramate [From Topamax] Allergy Swelling Verified 02/22/19 14:20 Review of Systems ROS Statement: Those systems with pertinent positive or pertinent negative responses have been documented in the HPI. ROS Other: All systems not noted in ROS Statement are negative. Past Medical History Past Medical History: Chest Pain / Angina, Heart Failure, Hyperlipidemia, Hypertension, Osteoarthritis (OA), Pneumonia, Seizure Disorder, Skin Disorder, Sleep Apnea/CPAP/BIPAP, Thyroid Disorder Additional Past Medical History / Comment(s): LAST KNOWN SEIZURE a couple months ago. developementally disabled, restless leg syndrme, cervical and back pain with pain down bilateral legs, leg weakness, occasional numbness and tingling to bilateral hands and feet,cpap used currently, abdominal pain. (diarrhea)- right after eating, states has had recent falls, persistant itching-cause unknown, sees pain specialist for chronic pain (entire body) History of Any Multi-Drug Resistant Organisms: None Reported Past Surgical History: Adenoidectomy, Bariatric Surgery, Cholecystectomy, Heart Catheterization, Hysterectomy, Tonsillectomy Additional Past Surgical History / Comment(s): cervical surgery/cage sleeve gastrectomy 8-7-19 Past Anesthesia/Blood Transfusion Reactions: No Reported Reaction Additional Past Anesthesia/Blood Transfusion Reaction / Comment(s): states "was told by my sister's boyfriend that I had trouble breathing and almost during my neck surgery",no hx blood transfusion Date of Last Stent Placement:: 06/03/2014 Past Psychological History: Depression Smoking Status: Never smoker Past Alcohol Use History: None Reported Past Drug Use History: None Reported - Past Family History Father Family Medical History: Cancer Additional Family Medical History / Comment(s): stomach Sister(s) Family Medical History: Cancer Additional Family Medical History / Comment(s): stomach CA Mother Family Medical History: No Reported History Additional Family Medical History / Comment(s): . General Exam - General Exam Comments Initial Comments: General: The patient is awake and alert, in no distress, and does not appear acutely ill. Eye: Pupils are equal, round and reactive to light, extra-ocular movements are intact. No nystagmus. There is normal conjunctiva bilaterally. No signs of icterus. Ears, nose, mouth and throat: There are moist mucous membranes and no oral lesions. Neck: The neck is supple, there is no tenderness or JVD. Cardiovascular: There is a regular rate and rhythm. No murmur, rub or gallop is appreciated. Respiratory: Lungs are clear to auscultation, respirations are non-labored, breath sounds are equal. No wheezes, stridor, rales, or rhonchi. Gastrointestinal: Soft, non-distended, periumbilical abdominal pain to palpation the remainder abdomen is nontender and without masses or organomegaly noted. There is no rebound or guarding present. No CVA tenderness. Bowel sounds are unremarkable. Musculoskeletal: Normal ROM, no tenderness. Strength 5/5. Sensation intact. Radial pulses equal bilaterally 2+. Neurological: A&O x 3. CN II-XII intact grossly, There are no obvious motor or sensory deficits. Coordination appears grossly intact. Speech is normal. Skin: Skin is warm and dry and no rashes or lesions are noted. Lower extremity edema Psychiatric: Cooperative, appropriate mood & affect, normal judgment. Limitations: no limitations Course Vital Signs 02/22/19 02/22/19 12:32 16:00 Temperature 98.3 F 98.0 F Pulse Rate 103 H 98 Respiratory 18 18 Rate Blood Pressure 113/78 108/76 O2 Sat by Pulse 96 97 Oximetry Medical Decision Making - Medical Decision Making 58-year-old female presenting for reevaluation. Patient states she is recently discharged from the [facility]. Electrolytes are stable. Patient does not appear dehydrated and physical examination. Patient given IV hydration in the emergency department. EKG no acute findings. CXR clear. Patient CT revealed nonspecific colitis. Labs do not reveal leukocytosis. Patient is in no acute distress. At this time patient be discharged with antibiotics for colitis. Patient is to follow-up with the primary care provider. Case discussed with my attending provider Dr. Saini, He is agreeable patient care plan discharge at this time. Ventricular rate 72 bpm, QRS duration 98 ms, [place] interval 198 ms, QT/QTC 394/[address] elevation or depression this is normal sinus. EKG personally interpreted and reviewed by my attending provider - Lab Data Result diagrams: 02/22/19 13:08 02/22/19 13:08 Lab Results 02/22/19 02/22/19 02/22/19 Range/Units 13:08 13:08 13:08 WBC 9.0 (3.8-10.6) k/uL RBC 4.44 (3.80-5.40) m/uL Hgb 13.7 (11.4-16.0) gm/dL Hct 41.1 (34.0-46.0) % MCV 92.5 (80.0-100.0) fL MCH 30.8 (25.0-35.0) pg MCHC 33.3 (31.0-37.0) g/dL RDW 14.4 (11.5-15.5) % Plt Count 328 (150-450) k/uL Neutrophils % 73 % Lymphocytes % 20 % Monocytes % 4 % Eosinophils % 2 % Basophils % 1 % Neutrophils # 6.6 (1.3-7.7) k/uL Lymphocytes # 1.8 (1.0-4.8) k/uL Monocytes # 0.4 (0-1.0) k/uL Eosinophils # 0.1 (0-0.7) k/uL Basophils # 0.0 (0-0.2) k/uL PT (9.0-12.0) sec INR (<1.2) APTT (22.0-30.0) sec Sodium 140 (137-145) mmol/L Potassium 4.4 (3.5-5.1) mmol/L Chloride 106 (98-107) mmol/L Carbon Dioxide 24 (22-30) mmol/L Anion Gap 10 mmol/L BUN 18 H (7-17) mg/dL Creatinine 0.81 (0.52-1.04) mg/dL Est GFR (CKD-EPI)AfAm >90 (>60 ml/min/1.73 sqM) Est GFR (CKD-EPI)NonAf 82 (>60 ml/min/1.73 sqM) Glucose 108 H (74-99) mg/dL Plasma Lactic Acid Kd 1.7 (0.7-2.0) mmol/L Calcium 10.0 (8.4-10.2) mg/dL Magnesium 2.0 (1.6-2.3) mg/dL Total Bilirubin 0.6 (0.2-1.3) mg/dL AST 35 (14-36) U/L ALT 29 (9-52) U/L Alkaline Phosphatase 86 (38-126) U/L Troponin I (0.000-0.034) ng/mL Total Protein 7.4 (6.3-8.2) g/dL Albumin 4.4 (3.5-5.0) g/dL Urine Color Urine Appearance (Clear) Urine pH (5.0-8.0) Ur Specific [place] (1.001-1.035) Urine Protein (Negative) Urine Glucose (UA) (Negative) Urine Ketones (Negative) Urine Blood (Negative) Urine Nitrite (Negative) Urine Bilirubin (Negative) Urine Urobilinogen (<2.0) mg/dL Ur Leukocyte Esterase (Negative) Urine RBC (0-5) /hpf Urine WBC (0-5) /hpf Ur Squamous Epith Cells (0-4) /hpf Hyaline Casts (0-2) /lpf Urine Mucus (None) /hpf 02/22/19 02/22/19 02/22/19 Range/Units 13:08 13:08 13:57 WBC (3.8-10.6) k/uL RBC (3.80-5.40) m/uL Hgb (11.4-16.0) gm/dL Hct (34.0-46.0) % MCV (80.0-100.0) fL MCH (25.0-35.0) pg MCHC (31.0-37.0) g/dL RDW (11.5-15.5) % Plt Count (150-450) k/uL Neutrophils % % Lymphocytes % % Monocytes % % Eosinophils % % Basophils % % Neutrophils # (1.3-7.7) k/uL Lymphocytes # (1.0-4.8) k/uL Monocytes # (0-1.0) k/uL Eosinophils # (0-0.7) k/uL Basophils # (0-0.2) k/uL PT 10.6 (9.0-12.0) sec INR 1.0 (<1.2) APTT 21.6 L (22.0-30.0) sec Sodium (137-145) mmol/L Potassium (3.5-5.1) mmol/L Chloride (98-107) mmol/L Carbon Dioxide (22-30) mmol/L Anion Gap mmol/L BUN (7-17) mg/dL Creatinine (0.52-1.04) mg/dL Est GFR (CKD-EPI)AfAm (>60 ml/min/1.73 sqM) Est GFR (CKD-EPI)NonAf (>60 ml/min/1.73 sqM) Glucose (74-99) mg/dL Plasma Lactic Acid Kd (0.7-2.0) mmol/L Calcium (8.4-10.2) mg/dL Magnesium (1.6-2.3) mg/dL Total Bilirubin (0.2-1.3) mg/dL AST (14-36) U/L ALT (9-52) U/L Alkaline Phosphatase (38-126) U/L Troponin I <0.012 (0.000-0.034) ng/mL Total Protein (6.3-8.2) g/dL Albumin (3.5-5.0) g/dL Urine Color Yellow Urine Appearance Cloudy H (Clear) Urine pH 5.0 (5.0-8.0) Ur Specific [place] 1.019 (1.001-1.035) Urine Protein Trace H (Negative) Urine Glucose (UA) Negative (Negative) Urine Ketones Negative (Negative) Urine Blood Negative (Negative) Urine Nitrite Negative (Negative) Urine Bilirubin Negative (Negative) Urine Urobilinogen <2.0 (<2.0) mg/dL Ur Leukocyte Esterase Trace H (Negative) Urine RBC 4 (0-5) /hpf Urine WBC 5 (0-5) /hpf Ur Squamous Epith Cells 6 H (0-4) /hpf Hyaline Casts 123 H (0-2) /lpf Urine Mucus Many H (None) /hpf Disposition Clinical Impression: Nausea, Diarrhea, Abdominal cramping Disposition: HOME SELF-CARE Condition: Good Instructions (If sedation given, give patient instructions): Acute Nausea and Vomiting (ED), Colitis (ED) Additional Instructions: Please use medication as discussed. Please follow-up with family doctor in the next 2 days-recommend GI follow-up. Please return to emergency room if the symptoms increase or worsen or for any other concerns. Prescriptions: Sulfamethox-Tmp 800-160Mg [Bactrim DS 800-160 mg] 1 tab PO Q12HR 10 Days #20 tab metroNIDAZOLE [Flagyl] 500 mg PO Q8HR 10 Days #30 tab Is patient prescribed a controlled substance at d/c from ED?: No Referrals: Júnior Hancock MD [Primary Care Provider] - 1-2 days Time of Disposition: 15:40
[2019-02-22 16:02] VITALS: BP 108/76; PULSE 98; TEMP 98
== END 2019-02-22 16:00 | disposition home or self-care (01) ==
LOC: EC 12:24
DX: K52.9 Noninfective gastroenteritis and colitis, unspecified (principal); R60.0 Localized edema; F32.9 Major depressive disorder, single episode, unspecified; I25.2 Old myocardial infarction; I11.0 Hypertensive heart disease with heart failure; I50.9 Heart failure, unspecified; E78.5 Hyperlipidemia, unspecified; M19.90 Unspecified osteoarthritis, unspecified site; G25.81 Restless legs syndrome; G40.909 Epilepsy, unspecified, not intractable, without status epilepticus; E07.9 Disorder of thyroid, unspecified; G47.30 Sleep apnea, unspecified; G89.29 Other chronic pain; Z79.82 Long term (current) use of aspirin; Z79.890 Hormone replacement therapy; Z79.899 Other long term (current) drug therapy; Z91.040 Latex allergy status; Z88.0 Allergy status to penicillin; Z88.6 Allergy status to analgesic agent; Z88.8 Allergy status to other drugs, medicaments and biological substances; Z91.048 Other nonmedicinal substance allergy status; Z99.89 Dependence on other enabling machines and devices; Z98.84 Bariatric surgery status; Z90.49 Acquired absence of other specified parts of digestive tract; Z95.5 Presence of coronary angioplasty implant and graft; Z90.89 Acquired absence of other organs
CPT/HCPCS: 36415; 93005; 80053; 83605; 83735; 84484; 85025; 85610; 85730; 81001; 71046; 74177; 99284; Q9967

== ENCOUNTER → 2019-02-28 | Outpatient (CLI) | payer MEDICARE, OTHER ==
[2019-02-28 15:18] VITALS: BP 136/89; PULSE 90; TEMP 97.7; BMI 38.9
--- NOTE | 2019-02-28 16:05 | P.HPBAR ---
Bariatric H&P - History & Physicial H&P Date: 02/28/19 History & Physicial: Visit/CC: sleeve follow up Patient initial contact: Initial weight: 137.438 kg Initial weight in pounds: 303.00 Height: 5 ft 7 in Initial BMI: 47.4 Last weight: Current weight: 112.945 kg Current weight in pounds: 249.00 Current BMI: 38.9 [place] body weight (based on NIH guidelines): 61.235 kg Excess body weight loss: 32.1% The patient is a 58 year-old F who presents for Bariatric Assessment. Patient presents today for sleeve gastrectomy fall. She's had some minimal complaints of GERD. She lost 11 pounds since her last visit. Past Medical History Past Medical History: Chest Pain / Angina, Heart Failure, Hyperlipidemia, Hypertension, Osteoarthritis (OA), Pneumonia, Seizure Disorder, Skin Disorder, Sleep Apnea/CPAP/BIPAP, Thyroid Disorder Additional Past Medical History / Comment(s): LAST KNOWN SEIZURE a couple months ago. developementally disabled, restless leg syndrme, cervical and back pain with pain down bilateral legs, leg weakness, occasional numbness and tingling to bilateral hands and feet,cpap used currently, abdominal pain. (diarrhea)- right after eating, states has had recent falls, persistant itching-cause unknown, sees pain specialist for chronic pain (entire body) History of Any Multi-Drug Resistant Organisms: None Reported Past Surgical History: Adenoidectomy, Bariatric Surgery, Cholecystectomy, Heart Catheterization, Hysterectomy, Tonsillectomy Additional Past Surgical History / Comment(s): cervical surgery/cage sleeve gastrectomy 12-01-18 Past Anesthesia/Blood Transfusion Reactions: No Reported Reaction Additional Past Anesthesia/Blood Transfusion Reaction / Comm: states "was told by my sister's boyfriend that I had trouble breathing and almost during my neck surgery",no hx blood transfusion Date of Last Stent Placement:: 06/03/2014 Past Psychological History: Depression Additional Psychological History / Comment(s): Pt states she currently resides with her sister. She is mildly developmentally delayed. She states she has had falls and that her sister's home is too small for her to be able to use any assistive devices. states she signs own consents with sister being coguardian as well and able to assist with explanations and signatures if needed-to bring legal documents day of surgery Smoking Status: Never smoker Past Alcohol Use History: None Reported Additional Past Alcohol Use History / Comment(s): . Past Drug Use History: None Reported - Past Family History Father Family Medical History: Cancer Additional Family Medical History / Comment(s): stomach Sister(s) Family Medical History: Cancer Additional Family Medical History / Comment(s): stomach CA Mother Family Medical History: No Reported History Additional Family Medical History / Comment(s): . Surgical - Exam Vital Signs Temp Pulse BP 97.7 F 90 136/89 02/28/19 15:15 02/28/19 15:15 02/28/19 15:15 - General well developed, well nourished, no distress - Eyes PERRL - ENT normal pinna - Neck no masses - Respiratory normal expansion - Cardiovascular Rhythm: regular - Abdomen Abdomen: soft, non tender Bariatric Assessment & Plan Plan: The patient is doing quite well from her sleep. She is an excellent weight loss. Her GERD is minimal and will be observed. She'll follow-up in 4 weeks. Bariatric Checklist Checklist: Plan: Checklist: EGD: 1. Hiatal hernia: 2. H. Pylori: HgbA1c: Vitamin D: Smoking: Never smoker Primary care physician referral: PCP Barbara Carter=, Medical Supervisor=[place] Psychiatry clearance: Cardiology clearance: Sleep study: Diet journal: VTE risk score: VTE risk level: Rehab needs at discharge:
== END | disposition home or self-care (01) ==
LOC: BARWHC3 12:26
PROVIDERS: ATTEND Surgery
DX: Z09 Encounter for follow-up examination after completed treatment for conditions other than malignant neoplasm (principal); Z98.84 Bariatric surgery status; E66.01 Morbid (severe) obesity due to excess calories; Z68.38 Body mass index [BMI] 38.0-38.9, adult
CPT/HCPCS: 97803; G0463; 99211

== ENCOUNTER → 2019-04-11 | Outpatient (CLI) | payer MEDICARE, OTHER ==
[2019-04-11 13:02] LABS: Glucose,Whole Blood 169 mg/dL (75-99)
[2019-04-12 08:28] VITALS: BP 131/78; PULSE 90; TEMP 97.6; BMI 37.9
--- NOTE | 2019-05-16 15:39 | P.HPBAR ---
Bariatric H&P - History & Physicial H&P Date: 04/11/19 History & Physicial: Visit/CC: sleeve follow up Patient initial contact: Initial weight: 137.438 kg Initial weight in pounds: 303.00 Height: 5 ft 7 in Initial BMI: 47.4 Last weight: Current weight: 109.769 kg Current weight in pounds: 242.00 Current BMI: 37.9 [place] body weight (based on NIH guidelines): 61.235 kg Excess body weight loss: 36.3% The patient is a 58 year-old F who presents for Bariatric Assessment. Patient's had some mild GERD. She states her dysphagia has improved. Past Medical History Past Medical History: Chest Pain / Angina, Heart Failure, Hyperlipidemia, Hyper tension, Osteoarthritis (OA), Pneumonia, Seizure Disorder, Skin Disorder, Sleep Apnea/CPAP/BIPAP, Thyroid Disorder Additional Past Medical History / Comment(s): LAST KNOWN SEIZURE a couple months ago. developementally disabled, restless leg syndrme, cervical and back pain with pain down bilateral legs, leg weakness, occasional numbness and tingling to bilateral hands and feet,cpap used currently, abdominal pain. (diarrhea)- right after eating, states has had recent falls, persistant itching-cause unknown, sees pain specialist for chronic pain (entire body) History of Any Multi-Drug Resistant Organisms: None Reported Past Surgical History: Adenoidectomy, Bariatric Surgery, Cholecystectomy, Heart Catheterization, Hysterectomy, Tonsillectomy Additional Past Surgical History / Comment(s): cervical surgery/cage sleeve gastrectomy 12-01-18 Past Anesthesia/Blood Transfusion Reactions: No Reported Reaction Additional Past Anesthesia/Blood Transfusion Reaction / Comm: states "was told by my sister's boyfriend that I had trouble breathing and almost during my neck surgery",no hx blood transfusion Date of Last Stent Placement:: 06/03/2014 Past Psychological History: Depression Additional Psychological History / Comment(s): Pt states she currently resides with her sister. She is mildly developmentally delayed. She states she has had falls and that her sister's home is too small for her to be able to use any assistive devices. states she signs own consents with sister being coguardian as well and able to assist with explanations and signatures if needed-to bring legal documents day of surgery Smoking Status: Never smoker Past Alcohol Use History: None Reported Additional Past Alcohol Use History / Comment(s): . Past Drug Use History: None Reported - Past Family History Father Family Medical History: Cancer Additional Family Medical History / Comment(s): stomach Sister(s) Family Medical History: Cancer Additional Family Medical History / Comment(s): stomach CA Mother Family Medical History: No Reported History Additional Family Medical History / Comment(s): . Surgical - Exam Vital Signs Temp Pulse BP 97.6 F 90 131/78 04/11/19 13:00 04/11/19 13:00 04/11/19 13:00 - General well developed, well nourished, no distress - Abdomen Abdomen: soft, non tender Bariatric Assessment & Plan Plan: Patient's dysphagia is improved. Her GERD will be observed. She'll follow-up in 4 weeks. Bariatric Checklist Checklist: Plan: Checklist: EGD: 1. Hiatal hernia: 2. H. Pylori: HgbA1c: Vitamin D: Smoking: Never smoker Primary care physician referral: PCP Barbara Carter=, Legal Instructor=[facility] clearance: Cardiology clearance: Sleep study: Diet journal: VTE risk score: VTE risk level: Rehab needs at discharge:
== END | disposition home or self-care (01) ==
LOC: BARWHC3 11:28
PROVIDERS: ATTEND Surgery
DX: K21.9 Gastro-esophageal reflux disease without esophagitis (principal); Z98.84 Bariatric surgery status; Z90.49 Acquired absence of other specified parts of digestive tract
CPT/HCPCS: 99211

== ENCOUNTER → 2019-05-09 | Outpatient (CLI) | payer OTHER ==
[2019-05-09 14:52] VITALS: BP 152/77; PULSE 71; RESP 16; TEMP 98.2; BMI 37.3
[2019-05-09 14:58] LABS: HCT 41.3 % (34.0-46.0); HGB 13.5 gm/dL (11.4-16.0); MCH 30.8 pg (25.0-35.0); MCHC 32.8 g/dL (31.0-37.0); MCV 93.8 fL (80.0-100.0); Mean Platelet Volume 8.2; Platelet Count 388 k/uL (150-450)
--- NOTE | 2019-05-09 15:56 | P.HPBAR ---
Bariatric H&P - History & Physicial H&P Date: 05/09/19 History & Physicial: Visit/CC: Sleeve f/u Patient initial contact: Initial weight: 137.438 kg Initial weight in pounds: 303.00 Height: 5 ft 7 in Initial BMI: 47.4 Last weight: Current weight: 107.955 kg Current weight in pounds: 238.00 Current BMI: 37.3 [place] body weight (based on NIH guidelines): 61.235 kg Excess body weight loss: 38.6% The patient is a 58 year-old F who presents for Bariatric Assessment. Patient resents today for sleeve gastrectomy follow-up. She's had some minimal GERD. He also has had some hypertensive issues with elevated blood pressure Past Medical History Past Medical History: Chest Pain / Angina, Heart Failure, Hyperlipidemia, Hypertension, Osteoarthritis (OA), Pneumonia, Seizure Disorder, Skin Disorder, Sleep Apnea/CPAP/BIPAP, Thyroid Disorder Additional Past Medical History / Comment(s): LAST KNOWN SEIZURE a couple months ago. developementally disabled, restless leg syndrme, cervical and back pain with pain down bilateral legs, leg weakness, occasional numbness and tingling to bilateral hands and feet,cpap used currently, abdominal pain. (diarrhea)- right after eating, states has had recent falls, persistant itching-cause unknown, sees pain specialist for chronic pain (entire body) History of Any Multi-Drug Resistant Organisms: None Reported Past Surgical History: Adenoidectomy, Bariatric Surgery, Cholecystectomy, Heart Catheterization, Hysterectomy, Tonsillectomy Additional Past Surgical History / Comment(s): cervical surgery/cage sleeve gastrectomy 8- Past Anesthesia/Blood Transfusion Reactions: No Reported Reaction Additional Past Anesthesia/Blood Transfusion Reaction / Comm: states "was told by my sister's boyfriend that I had trouble breathing and almost during my neck surgery",no hx blood transfusion Date of Last Stent Placement:: 06/03/2014 Smoking Status: Never smoker - Past Family History Father Family Medical History: Cancer Additional Family Medical History / Comment(s): stomach Sister(s) Family Medical History: Cancer Additional Family Medical History / Comment(s): stomach CA Mother Family Medical History: No Reported History Additional Family Medical History / Comment(s): . Surgical - Exam Vital Signs Temp Pulse Resp BP 98.2 F 71 16 152/77 05/09/19 14:49 05/09/19 14:49 05/09/19 14:49 05/09/19 14:49 - General well developed, well nourished, no distress - Eyes PERRL, normal ocular movement - ENT normal pinna - Neck no masses - Respiratory normal expansion - Cardiovascular Rhythm: regular - Abdomen Abdomen: soft, non tender Results - Labs 05/09/19 14:36 Bariatric Assessment & Plan Plan: Patient is an excellent weight loss. She will follow-up in one month. Her GERD is minimal will be observed. Patient was seen Dr. Júnior Pham for her hypertension Bariatric Checklist Checklist: Plan: Checklist: EGD: 1. Hiatal hernia: 2. H. Pylori: HgbA1c: Vitamin D: Smoking: Never smoker Primary care physician referral: PCP Barbara Carter=, Employee Relation Manager=[facility] clearance: Cardiology clearance: Sleep study: Diet journal: VTE risk score: VTE risk level: Rehab needs at discharge:
[2019-05-09 19:36] LABS: African American GFR (CKD) 118.1 (60.0-200.0); Albumin 4.4 g/dL (3.80-4.90); Albumin/Globulin Ratio 2.32 (1.60-3.17); Anion Gap 10.5 mmol/L (4.00-12.00); BUN/Creat Ratio 21.67 Ratio (12.00-20.00); Calcium 9.6 mg/dL (8.7-10.3); Carbon Dioxide 25.5 mmol/L (21.6-31.8); Globulin 1.9 g/dL (1.6-3.3); Non-African American GFR(CKD) 101.9 (60.0-200.0); Potassium 3.3 mmol/L (3.5-5.5); Total Bilirubin 0.4 mg/dL (0.2-1.2); Total Protein 6.3 g/dL (6.2-8.2)
[2019-05-09 19:47] LABS: Folate, Serum 4.5 ng/mL
== END | disposition home or self-care (01) ==
LOC: BARWHC3 13:05
PROVIDERS: ATTEND Surgery
DX: Z48.815 Encounter for surgical aftercare following surgery on the digestive system (principal); K21.9 Gastro-esophageal reflux disease without esophagitis; I10 Essential (primary) hypertension; Z98.84 Bariatric surgery status; Z90.49 Acquired absence of other specified parts of digestive tract; E66.01 Morbid (severe) obesity due to excess calories; E44.0 Moderate protein-calorie malnutrition; Z68.37 Body mass index [BMI] 37.0-37.9, adult
CPT/HCPCS: 80053; 82306; 82607; 82746; 84425; 84443; 85027; 97803; 99211

== ENCOUNTER → 2019-05-09 | Outpatient (CLI) | payer MEDICARE, OTHER ==
--- NOTE | 2019-05-09 15:54 | XR ---
Bilateral hips HISTORY: Osteoarthritis, right hip pain 2 views of each hip are submitted on a total 4 images Bone mineralization and alignment are maintained. Joint spaces appear symmetric and are maintained. N o fracture or dislocation. IMPRESSION: No significant abnormalities evident
== END | disposition home or self-care (01) ==
LOC: RADXRMAIN 12:44
PROVIDERS: ATTEND Family Medicine
DX: M16.0 Bilateral primary osteoarthritis of hip (principal)
CPT/HCPCS: 73521

== ENCOUNTER 2019-05-20 09:56 | Emergency (ER) | payer MEDICARE, OTHER ==
[2019-05-20 10:06] VITALS: RESP 18
[2019-05-20] MEDS ORDERED: HYDROcodone/APAP 5-325MG 1 EACH TAB PO STA (11:00)
--- NOTE | 2019-05-20 11:21 | ED ---
General Adult HPI - General Chief complaint: Fall Stated complaint: had a fall a few days ago Time Seen by Provider: 05/20/19 10:16 Source: patient, RN notes reviewed Mode of arrival: wheelchair - History of Present Illness Initial comments: 58-year-old female with a complicated past medical history presents to the emergency department for a chief complaint of fall. patient states she fell about 3 days ago on her right hip and back. Patient states she has chronic right hip and back pain for which she takes [place] but the pain is somewhat worsened after this fall. She did not hit her head. That was several days ago. Patient states that she always has frequent falls. States these have not increased as of lately. States it has been ongoing for years but no one can te ll her why. States she was in physical therapy but they stopped this because they thought it could be getting worse. Patient has no other complaints at this time including shortness of breath, chest pain, abdominal pain, nausea or vomiting, headache, or visual changes. - Related Data Home Medications Medication Instructions Recorded Confirmed rOPINIRole HCL 5 mg PO BID 02/04/16 05/10/19 Levothyroxine Sodium [Synthroid] 125 mcg PO QAM 05/11/18 05/10/19 Loratadine [Claritin] 10 mg PO DAILY 06/28/18 05/10/19 Meclizine [Antivert] 25 mg PO Q8H 06/28/18 05/10/19 amLODIPine [Norvasc] 10 mg PO QAM 06/28/18 05/10/19 Lovastatin [Mevacor] 40 mg PO DAILY 07/19/18 05/10/19 Montelukast [Singulair] 10 mg PO HS 07/19/18 05/10/19 levETIRAcetam [Keppra] 1,000 mg PO Q12HR 11/24/18 05/10/19 Aspirin EC [Ecotrin Low Dose] 81 mg PO DAILY 02/22/19 05/10/19 Furosemide [Lasix] 20 mg PO BID 02/22/19 05/10/19 HYDROcodone/APAP 10-325MG [[place] 1 tab PO Q6H PRN 02/22/19 05/10/19 10-325] Losartan Potassium 50 mg PO PC-SUPPER 02/22/19 05/10/19 Nystatin 100,000 Unit/gm Powd 1 applic TOPICAL DAILY 02/22/19 05/10/19 [Mycostatin Powder] Potassium Chloride Oral Liquid 40 meq PO DAILY 05/10/19 05/10/19 Previous Rx's Medication Instructions Recorded Gabapentin [Neurontin] 300 mg PO TID #9 cap 12/06/18 Sulfamethox-Tmp 800-160Mg [Bactrim 1 tab PO Q12HR 10 Days #20 tab 02/22/19 DS 800-160 mg] metroNIDAZOLE [Flagyl] 500 mg PO Q8HR 10 Days #30 tab 02/22/19 Nystatin 100,000 Unit/gm Powd 1 applic TOPICAL TID 10 Days #1 05/20/19 [Mycostatin Powder] bottle Allergies Allergy/AdvReac Type Severity Reaction Status Date / Time adhesive Allergy Rash/Hives Verified 05/10/19 17:22 buspirone [From BuSpar] Allergy Itching Verified 05/10/19 17:22 divalproex sodium Allergy Rash/Hives Verified 05/10/19 17:22 [From Depakote] ibuprofen [From Motrin] Allergy Rash/Hives Verified 05/10/19 17:22 latex Allergy Rash/Hives Verified 05/10/19 17:22 Penicillins Allergy Rash/Hives Verified 05/10/19 17:22 topiramate [From Topamax] Allergy Swelling Verified 05/10/19 17:22 Review of Systems ROS Statement: Those systems with pertinent positive or pertinent negative responses have been documented in the HPI. ROS Other: All systems not noted in ROS Statement are negative. Past Medical History Past Medical History: Chest Pain / Angina, Heart Failure, Hyperlipidemia, Hypertension, Osteoarthritis (OA), Pneumonia, Seizure Disorder, Skin Disorder, Sleep Apnea/CPAP/BIPAP, Thyroid Disorder Additional Past Medical History / Comment(s): LAST KNOWN SEIZURE a couple months ago. developementally disabled, restless leg syndrme, cervical and back pain with pain down bilateral legs, leg weakness, occasional numbness and tingling to bilateral hands and feet,cpap used currently, abdominal pain. (diarrhea)- right after eating, states has had recent falls, persistant itching-cause unknown, sees pain specialist for chronic pain (entire body) History of Any Multi-Drug Resistant Organisms: None Reported Past Surgical History: Adenoidectomy, Bariatric Surgery, Cholecystectomy, Heart Catheterization, Hysterectomy, Tonsillectomy Additional Past Surgical History / Comment(s): cervical surgery/cage sleeve gastrectomy 12-01-18 Past Anesthesia/Blood Transfusion Reactions: No Reported Reaction Additional Past Anesthesia/Blood Transfusion Reaction / Comment(s): states "was told by my sister's boyfriend that I had trouble breathing and almost during my neck surgery",no hx blood transfusion Date of Last Stent Placement:: 06/03/2014 Past Psychological History: Depression Smoking Status: Never smoker Past Alcohol Use History: None Reported Past Drug Use History: None Reported - Past Family History Father Family Medical History: Cancer Additional Family Medical History / Comment(s): stomach Sister(s) Family Medical History: Cancer Additional Family Medical History / Comment(s): stomach CA Mother Family Medical History: No Reported History Additional Family Medical History / Comment(s): . General Exam General appearance: alert, in no apparent distress Head exam: Present: atraumatic, normocephalic, normal inspection Eye exam: Present: normal appearance, PERRL, EOMI. Absent: scleral icterus, conjunctival injection, periorbital swelling ENT exam: Present: normal exam, mucous membranes moist Neck exam: Present: normal inspection, full ROM. Absent: tenderness, meningismus, lymphadenopathy Respiratory exam: Present: normal lung sounds bilaterally. Absent: respiratory distress, wheezes, rales, rhonchi, stridor Cardiovascular Exam: Present: regular rate, normal rhythm, normal heart sounds. Absent: systolic murmur, diastolic murmur, rubs, gallop, clicks GI/Abdominal exam: Present: soft, normal bowel sounds. Absent: distended, tenderness, guarding, rebound, rigid Extremities exam: Present: normal capillary refill (Capillary refill less than 2 seconds in the right lower extremity. DP pulse 2+.), other (Sensation intact in the right lower extremity.). Absent: full ROM (Patient has 45 flexion of the right hip, extension to neutral position.), pedal edema (No pitting edema of the lower extremities.), calf tenderness (No calf Tenderness) Back exam: Present: paraspinal tenderness (Right-sided paraspinal tenderness, no vertebral tenderness). Absent: CVA tenderness (R), CVA tenderness (L) Neurological exam: Present: normal gait (Patient is ambulatory with her cane which she uses for her right hip pain.) Course Vital Signs 05/20/19 10:01 Temperature 97.5 F L Pulse Rate 79 Respiratory 18 Rate Blood Pressure 130/86 O2 Sat by Pulse 98 Oximetry Medical Decision Making - Medical Decision Making X-ray of the lumbar spine shows no acute fracture or dislocation seen. There is persistent moderate to severe disc space narrowing. This is chronic in nature given patient takes chronic pain medications for this. X-ray of the right hip and pelvis shows no acute fracture or dislocation. Patient is ambulatory in the emergency department at baseline with her cane that she uses for this chronic right hip pain. At this time patient can be discharged home to follow up with primary care. She will return here if she has any worsening symptoms. Patient will also be given nystatin powder because she does have erythema noted under the breasts and in the intertriginous areas that she does not have anymore medication for. Disposition Clinical Impression: Fall, Chronic pain Disposition: HOME SELF-CARE Condition: Good Instructions (If sedation given, give patient instructions): Hip Pain (ED) Additional Instructions: Please continue to take [place] for pain. Please follow-up with primary care and orthopedics in one to 2 days. Return here with any worsening symptoms. Prescriptions: Nystatin 100,000 Unit/gm Powd [Mycostatin Powder] 1 applic TOPICAL TID 10 Days #1 bottle Is patient prescribed a controlled substance at d/c from ED?: No Referrals: Júnior Hancock MD [Primary Care Provider] - 1-2 days Ladarius Andrews MD [STAFF PHYSICIAN] - 1-2 days Time of Disposition: 12:14
--- NOTE | 2019-05-20 11:32 | XR ---
EXAMINATION TYPE: XR lumbar spine 2 or 3V DATE OF EXAM: 05/20/2019 CLINICAL HISTORY: Pain after fall injury. TECHNIQUE: Frontal and lateral images of the lumbar spine are obtained. COMPARISON: CT abdomen and pelvis February 22, 2019 FINDINGS: There are 5 lumbar type vertebral bodies redemonstrated. The lumbar spine redemonstrates satisfactory alignment without evidence of acute fracture or dislocation. Persistent moderate to jay re disc space narrowing L5-S1 level. Persistent mild to moderate disc space narrowing L3-L4 level. Fa cet arthropathy lower lumbar levels. Overlying soft tissue unremarkable. Vertebral body heights maint ained. IMPRESSION: No acute fracture or dislocation is seen in the lumbar spine.
--- NOTE | 2019-05-20 11:33 | XR ---
EXAMINATION TYPE: XR Hip RT and AP Pelvis DATE OF EXAM: 05/20/2019 COMPARISON: CT abdomen and pelvis February 22, 2019 HISTORY: Pelvic and right hip pain after falling injury TECHNIQUE: A single AP view of the pelvis is obtained. Two views of the right hip are obtained. FINDINGS: There is no acute fracture/dislocation evident in the pelvis. The hip and sacroiliac join ts appear symmetric. Mild acetabular spurring of both hips redemonstrated. Pubic symphysis is intact. The overlying soft tissue appears unremarkable. Two views of right hip show no acute fracture or dislocation. No focal lytic or sclerotic lesion see n in the proximal right femur. The overlying soft tissue is unremarkable. IMPRESSION: There is no acute fracture or dislocation in the pelvis or right hip.
[2019-05-20 12:51] VITALS: BP 157/95; PULSE 69; TEMP 97.8
== END 2019-05-20 12:54 | disposition home or self-care (01) ==
LOC: EC 09:56
DX: G89.29 Other chronic pain (principal); M25.551 Pain in right hip; M54.9 Dorsalgia, unspecified; M48.061 Spinal stenosis, lumbar region without neurogenic claudication; L53.9 Erythematous condition, unspecified; I20.9 Angina pectoris, unspecified; I11.0 Hypertensive heart disease with heart failure; I50.9 Heart failure, unspecified; E78.5 Hyperlipidemia, unspecified; M19.90 Unspecified osteoarthritis, unspecified site; G40.909 Epilepsy, unspecified, not intractable, without status epilepticus; E07.9 Disorder of thyroid, unspecified; G25.81 Restless legs syndrome; G47.30 Sleep apnea, unspecified; F32.9 Major depressive disorder, single episode, unspecified; Z88.0 Allergy status to penicillin; Z88.6 Allergy status to analgesic agent; Z88.8 Allergy status to other drugs, medicaments and biological substances; Z91.040 Latex allergy status; Z91.048 Other nonmedicinal substance allergy status; Z79.82 Long term (current) use of aspirin; Z79.890 Hormone replacement therapy; Z79.899 Other long term (current) drug therapy; Z99.89 Dependence on other enabling machines and devices; W01.0XXA Fall on same level from slipping, tripping and stumbling without subsequent striking against object, initial encounter; Y93.89 Activity, other specified
CPT/HCPCS: 72100; 73502; 99283

== ENCOUNTER → 2019-06-10 | Outpatient (CLI) | payer MEDICARE, OTHER ==
--- NOTE | 2019-06-13 09:49 | MM ---
Reason for exam: screening (asymptomatic). Last mammogram was performed 3 years and 7 months ago. History: Patient is postmenopausal and is nulliparous. Family history of unknown cancer in sister at age 50. Took hormonal contraceptives for 2 months. Physical Findings: A clinical breast exam by your physician is recommended on an annual basis and results should be correlated with mammographic findings. MG 3D Screening Mammo W/Cad Bilateral CC and MLO view(s) were taken. Prior study comparison: November 01, 2015, bilateral MG 3d screening mammo w/cad. October 12, 2014, bilateral MG screening mammo w CAD. The breast tissue is heterogeneously dense. This may lower the sensitivity of mammography. There is no discrete abnormality. No significant changes when compared with prior studies. ASSESSMENT: Negative, BI-RAD 1 RECOMMENDATION: Routine screening mammogram of both breasts in 1 year.
== END | disposition home or self-care (01) ==
LOC: RADMAMWWP 11:25
PROVIDERS: ATTEND Family Medicine
DX: Z12.31 Encounter for screening mammogram for malignant neoplasm of breast (principal)
CPT/HCPCS: 77063; 77067

== ENCOUNTER → 2019-06-13 | Outpatient (CLI) | payer MEDICARE, OTHER ==
[2019-06-13 13:31] VITALS: BP 126/91; PULSE 61; RESP 16; TEMP 98.2; BMI 35.9
--- NOTE | 2019-06-16 11:46 | P.HPBAR ---
Bariatric H&P - History & Physicial H&P Date: 06/13/19 History & Physicial: Visit/CC: sleeve f/u Patient initial contact: Initial weight: 137.438 kg Initial weight in pounds: 303.00 Height: 5 ft 7 in Initial BMI: 47.4 Last weight: Current weight: 103.873 kg Current weight in pounds: 229.00 Current BMI: 35.9 [place] body weight (based on NIH guidelines): 61.235 kg Excess body weight loss: 44.0% The patient is a 58 year-old F who presents for Bariatric Assessment. Patient presents today for sleeve gastrectomy follow-up. She's had some umbilical pain and GERD. She is an excellent weight loss. She has lost another 9 pounds since her last visit. Past Medical History Past Medical History: Chest Pain / Angina, Heart Failure, Hyperlipidemia, Hypertension, Osteoarthritis (OA), Pneumonia, Seizure Disorder, Skin Disorder, Sleep Apnea/CPAP/BIPAP, Thyroid Disorder Additional Past Medical History / Comment(s): LAST KNOWN SEIZURE a couple months ago. developementally disabled, restless leg syndrme, cervical and back pain with pain down bilateral legs, leg weakness, occasional numbness and tingling to bilateral hands and feet,cpap used currently, abdominal pain. (diarrhea)- right after eating, states has had recent falls, persistant itching-cause unknown, sees pain specialist for chronic pain (entire body) History of Any Multi-Drug Resistant Organisms: None Reported Past Surgical History: Adenoidectomy, Bariatric Surgery, Cholecystectomy, Heart Catheterization, Hysterectomy, Tonsillectomy Additional Past Surgical History / Comment(s): cervical surgery/cage sleeve gastrectomy 12-01-18 Past Anesthesia/Blood Transfusion Reactions: No Reported Reaction Additional Past Anesthesia/Blood Transfusion Reaction / Comm: states "was told by my sister's boyfriend that I had trouble breathing and almost during my neck surgery",no hx blood transfusion Date of Last Stent Placement:: 06/03/2014 Past Psychological History: Depression Additional Psychological History / Comment(s): Pt states she currently resides with her sister. She is mildly developmentally delayed. She states she has had falls and that her sister's home is too small for her to be able to use any assistive devices. states she signs own consents with sister being coguardian as well and able to assist with explanations and signatures if needed-to bring legal documents day of surgery Smoking Status: Never smoker Past Alcohol Use History: None Reported Additional Past Alcohol Use History / Comment(s): . Past Drug Use History: None Reported - Past Family History Father Family Medical History: Cancer Additional Family Medical History / Comment(s): stomach Sister(s) Family Medical History: Cancer Additional Family Medical History / Comment(s): stomach CA Mother Family Medical History: No Reported History Additional Family Medical History / Comment(s): . Surgical - Exam Vital Signs Temp Pulse Resp BP 98.2 F 61 16 126/91 06/13/19 13:29 06/13/19 13:29 06/13/19 13:29 06/13/19 13:29 - General well developed, well nourished, no distress - Eyes PERRL - Abdomen Abdomen: soft, non tender Bariatric Assessment & Plan Plan: Status post sleeve gastrectomy. Patient's weight loss is excellent. Her GERD is minimal only observed. She'll follow-up in 4 weeks. Bariatric Checklist Checklist: Plan: Checklist: EGD: 1. Hiatal hernia: 2. H. Pylori: HgbA1c: Vitamin D: Smoking: Never smoker Primary care physician referral: PCP Barbara Carter=, Lawn Specialist=[facility] clearance: Cardiology clearance: Sleep study: Diet journal: VTE risk score: VTE risk level: Rehab needs at discharge:
== END | disposition home or self-care (01) ==
LOC: BARWHC3 12:54
PROVIDERS: ATTEND Surgery
DX: Z48.815 Encounter for surgical aftercare following surgery on the digestive system (principal); K21.9 Gastro-esophageal reflux disease without esophagitis; Z98.84 Bariatric surgery status; Z90.49 Acquired absence of other specified parts of digestive tract; Z90.710 Acquired absence of both cervix and uterus
CPT/HCPCS: 99211

== ENCOUNTER → 2019-06-14 | Outpatient (CLI) | payer MEDICARE, OTHER ==
[2019-06-14 16:55] LABS: African American GFR (CKD) 118.1 (60.0-200.0); Anion Gap 10.3 mmol/L (4.00-12.00); Carbon Dioxide 27.7 mmol/L (21.6-31.8); Non-African American GFR(CKD) 101.9 (60.0-200.0); Potassium 3.2 mmol/L (3.5-5.5)
== END ==
LOC: LABWHC1 10:59
PROVIDERS: ATTEND Family Medicine
DX: E11.9 Type 2 diabetes mellitus without complications (principal)
CPT/HCPCS: 36415; 80051; 82565; 84520

== ENCOUNTER → 2019-07-11 | Outpatient (CLI) | payer MEDICARE, OTHER | END | disposition home or self-care (01) | CPT/HCPCS: 99211 ==

== ENCOUNTER → 2019-09-12 | Outpatient (CLI) | payer MEDICARE, OTHER ==
[2019-09-12 13:06] VITALS: BP 110/77; PULSE 76; TEMP 97.7; BMI 34.6
--- NOTE | 2019-09-12 13:54 | P.HPBAR ---
Bariatric H&P - History & Physicial H&P Date: 09/12/19 History & Physicial: Visit/CC: nine month follow up visit Patient initial contact: Initial weight: 137.438 kg Initial weight in pounds: 303.00 Height: 5 ft 7 in Initial BMI: 47.4 Last weight: Current weight: 100.244 kg Current weight in pounds: 221.00 Current BMI: 34.6 [place] body weight (based on NIH guidelines): 61.235 kg Excess body weight loss: 48.8% The patient is a 58 year-old F who presents for Bariatric Assessment. Patient presents today for bariatric follow-up. She's had some minimal GERD. Her last weight was 227. She lost 6 pounds since her last visit. Past Medical History Past Medical History: Chest Pain / Angina, Heart Failure, Hyperlipidemia, Hypertension, Osteoarthritis (OA), Pneumonia, Seizure Disorder, Skin Disorder, Sleep Apnea/CPAP/BIPAP, Thyroid Disorder Additional Past Medical History / Comment(s): LAST KNOWN SEIZURE a couple months ago. developementally disabled, restless leg syndrme, cervical and back pain with pain down bilateral legs, leg weakness, occasional numbness and tingling to bilateral hands and feet,cpap used currently, abdominal pain. (diarrhea)- right after eating, states has had recent falls, persistant itching-cause unknown, sees pain specialist for chronic pain (entire body) History of Any Multi-Drug Resistant Organisms: None Reported Past Surgical History: Adenoidectomy, Bariatric Surgery, Cholecystectomy, Heart Catheterization, Hysterectomy, Tonsillectomy Additional Past Surgical History / Comment(s): cervical surgery/cage sleeve gastrectomy 12-01-18 Past Anesthesia/Blood Transfusion Reactions: No Reported Reaction Additional Past Anesthesia/Blood Transfusion Reaction / Comm: states "was told by my sister's boyfriend that I had trouble breathing and almost during my neck surgery",no hx blood transfusion Date of Last Stent Placement:: 06/03/2014 Past Psychological History: Depression Additional Psychological History / Comment(s): Pt states she currently resides with her sister. She is mildly developmentally delayed. She states she has had falls and that her sister's home is too small for her to be able to use any assistive devices. states she signs own consents with sister being coguardian as well and able to assist with explanations and signatures if needed-to bring legal documents day of surgery Smoking Status: Never smoker Past Alcohol Use History: None Reported Additional Past Alcohol Use History / Comment(s): . Past Drug Use History: None Reported - Past Family History Father Family Medical History: Cancer Additional Family Medical History / Comment(s): stomach Sister(s) Family Medical History: Cancer Additional Family Medical History / Comment(s): stomach CA Mother Family Medical History: No Reported History Additional Family Medical History / Comment(s): . Surgical - Exam Vital Signs Temp Pulse BP 97.7 F 76 110/77 09/12/19 13:03 09/12/19 13:03 09/12/19 13:03 - General well developed, well nourished, no distress - Eyes PERRL - ENT normal pinna - Neck no masses - Respiratory normal expansion - Cardiovascular Rhythm: regular - Abdomen Abdomen: soft, non tender Bariatric Assessment & Plan Plan: Does post sleeve gastrectomy. Patient has GERD is minimal will be observed. She'll continue medical management. She is an excellent weight loss. Her BMI is 35. Bariatric Checklist Checklist: Plan: Checklist: EGD: 1. Hiatal hernia: 2. H. Pylori: HgbA1c: Vitamin D: Smoking: Never smoker Primary care physician referral: PCP Barbara Carter=, Probation And Parole Officer=[place] [facility] clearance: Cardiology clearance: Sleep study: Diet journal: VTE risk score: VTE risk level: Rehab needs at discharge:
== END | disposition home or self-care (01) ==
LOC: BARWHC3 10:12
PROVIDERS: ATTEND Surgery
DX: Z48.815 Encounter for surgical aftercare following surgery on the digestive system (principal); K21.9 Gastro-esophageal reflux disease without esophagitis; E66.01 Morbid (severe) obesity due to excess calories; Z68.34 Body mass index [BMI] 34.0-34.9, adult; Z90.49 Acquired absence of other specified parts of digestive tract; Z98.84 Bariatric surgery status; Z90.710 Acquired absence of both cervix and uterus
CPT/HCPCS: 97803; G0463; 99211

== ENCOUNTER → 2019-10-10 | Outpatient (CLI) | payer MEDICARE, OTHER ==
[2019-10-10 13:43] VITALS: BP 121/80; PULSE 71; RESP 16; TEMP 98.7; BMI 32.4
[2019-10-10 15:27] LABS: HCT 36.8 % (34.0-46.0); HGB 12.3 gm/dL (11.4-16.0); MCH 32.2 pg (25.0-35.0); MCHC 33.4 g/dL (31.0-37.0); MCV 96.6 fL (80.0-100.0); Platelet Count 243 k/uL (150-450); RBC 3.81 m/uL (3.80-5.40); RDW 13.5 % (11.5-15.5); WBC 7.8 k/uL (3.8-10.6)
--- NOTE | 2019-10-10 15:45 | P.HPBAR ---
Bariatric H&P - History & Physicial H&P Date: 10/10/19 History & Physicial: Visit/CC: sleeve f/u Patient initial contact: Initial weight: 137.438 kg Initial weight in pounds: 303.00 Height: 5 ft 7 in Initial BMI: 47.4 Last weight: Current weight: 93.894 kg Current weight in pounds: 207.00 Current BMI: 32.4 [place] body weight (based on NIH guidelines): 61.235 kg Excess body weight loss: 57.1% The patient is a 58 year-old F who presents for Bariatric Assessment. Patient presents today for gastric sleeve follow-up. She's had some complaints of GERD. She had a recent admission [facility] for difficulty and voiding. The patient Now has a scooter. Past Medical History Past Medical History: Chest Pain / Angina, Heart Failure, Hyperlipidemia, Hypertension, Osteoarthritis (OA), Pneumonia, Seizure Disorder, Skin Disorder, Sleep Apnea/CPAP/BIPAP, Thyroid Disorder Additional Past Medical History / Comment(s): LAST KNOWN SEIZURE a couple months ago. developementally disabled, restless leg syndrme, cervical and back pain with pain down bilateral legs, leg weakness, occasional numbness and tingling to bilateral hands and feet,cpap used currently, abdominal pain. (diarrhea)- right after eating, states has had recent falls, persistant itching-cause unknown, sees pain specialist for chronic pain (entire body) History of Any Multi-Drug Resistant Organisms: None Reported Past Surgical History: Adenoidectomy, Bariatric Surgery, Cholecystectomy, Heart Catheterization, Hysterectomy, Tonsillectomy Additional Past Surgical History / Comment(s): cervical surgery/cage sleeve gastrectomy 12-01-18 Past Anesthesia/Blood Transfusion Reactions: No Reported Reaction Additional Past Anesthesia/Blood Transfusion Reaction / Comm: states "was told by my sister's boyfriend that I had trouble breathing and almost during my neck surgery",no hx blood transfusion Date of Last Stent Placement:: 06/03/2014 Past Psychological History: Depression Additional Psychological History / Comment(s): Pt states she currently resides with her sister. She is mildly developmentally delayed. She states she has had falls and that her sister's home is too small for her to be able to use any assistive devices. states she signs own consents with sister being coguardian as well and able to assist with explanations and signatures if needed-to bring legal documents day of surgery Smoking Status: Never smoker Past Alcohol Use History: None Reported Additional Past Alcohol Use History / Comment(s): . Past Drug Use History: None Reported - Past Family History Father Family Medical History: Cancer Additional Family Medical History / Comment(s): stomach Sister(s) Family Medical History: Cancer Additional Family Medical History / Comment(s): stomach CA Mother Family Medical History: No Reported History Additional Family Medical History / Comment(s): . Surgical - Exam Vital Signs Temp Pulse Resp BP 98.7 F 71 16 121/80 10/10/19 13:41 10/10/19 13:41 10/10/19 13:41 10/10/19 13:41 - General well developed, well nourished, no distress - Eyes PERRL - ENT normal pinna - Neck no masses - Respiratory normal expansion - Cardiovascular Rhythm: regular - Abdomen Abdomen: soft, non tender Results - Labs 10/10/19 14:11 Bariatric Assessment & Plan Plan: Status post sleeve gastrectomy. Patient's girth is minimal on the observed. She'll follow-up in one month. Bariatric Checklist Checklist: Plan: Checklist: EGD: 1. Hiatal hernia: 2. H. Pylori: HgbA1c: Vitamin D: Smoking: Never smoker Primary care physician referral: PCP Barbara Carter=, Elocution Teacher=[place] Psych[facility] clearance: Cardiology clearance: Sleep study: Diet journal: VTE risk score: VTE risk level: Rehab needs at discharge:
[2019-10-10 20:20] LABS: % Iron Saturation 13.61 (12.00-45.00); ALT 17 U/L (8-44); AST 23 U/L (13-35); African American GFR (CKD) 112.3 (60.0-200.0); Albumin/Globulin Ratio 2.15 (1.60-3.17); Alkaline Phosphatase 65 U/L (41-126); BUN/Creat Ratio 27.14 Ratio (12.00-20.00); Calcium 9.8 mg/dL (8.7-10.3); Carbon Dioxide 31.4 mmol/L (21.6-31.8); Chloride 105 mmol/L (96-109); Glucose 103 mg/dL (70-110); Iron 43 ug/dL (50-170); Non-African American GFR(CKD) 96.9 (60.0-200.0); Potassium 3.6 mmol/L (3.5-5.5); Sodium 144 mmol/L (135-145); Total Bilirubin 0.4 mg/dL (0.3-1.2); Total Iron Binding Capacity 316 ug/dL (228-460); Total Protein 6.3 g/dL (6.2-8.2)
[2019-10-10 20:31] LABS: Ferritin 59.1 ng/mL (10.0-291.0)
[2019-10-10 20:37] LABS: Folate, Serum >24.0 ng/mL
== END | disposition home or self-care (01) ==
LOC: BARWHC3 12:23
PROVIDERS: ATTEND Surgery
DX: Z48.815 Encounter for surgical aftercare following surgery on the digestive system (principal); Z98.84 Bariatric surgery status
CPT/HCPCS: 84425; 80053; 82607; 82728; 82746; 83540; 83550; 84443; 85027; 82306; G0463; 99211

== ENCOUNTER 2019-11-10 14:06 | Observation (INO) | payer MEDICARE, OTHER ==
[2019-11-10] MEDS ORDERED: SODIUM CHLORIDE 0.9% 1,000 ML IV STA (15:13)
--- NOTE | 2019-11-10 15:18 | ED ---
General Adult HPI - General Chief complaint: Dizziness Stated complaint: Dizziness Time Seen by Provider: 11/10/19 14:30 Source: patient, RN notes reviewed Mode of arrival: ambulatory Limitations: no limitations - History of Present Illness Initial comments: Patient is a pleasant 59-year-old female presenting to the emergency department with dizziness. Onset of symptoms was yesterday morning. Symptoms have been steady since that time. Patient feels dizzy and sometimes like she spinning. Patient feels like she is slightly confused. Patient feels delayed with her responses. Patient states her sister questioned if her speech was off. Patient states she is able to think of things but it just takes a little bit longer. No isolated area of weakness. Patient feels like she is somewhat off balance. No history of similar symptoms previously. - Related Data Home Medications Medication Instructions Recorded Confirmed rOPINIRole HCL 5 mg PO BID 02/04/16 10/10/19 Levothyroxine Sodium [Synthroid] 125 mcg PO QAM 05/11/18 10/10/19 Loratadine [Claritin] 10 mg PO DAILY 06/28/18 10/10/19 Meclizine [Antivert] 25 mg PO Q8H 06/28/18 10/10/19 amLODIPine [Norvasc] 10 mg PO QAM 06/28/18 10/10/19 Lovastatin [Mevacor] 40 mg PO DAILY 07/19/18 10/10/19 Montelukast [Singulair] 10 mg PO HS 07/19/18 10/10/19 levETIRAcetam [Keppra] 1,000 mg PO Q12HR 11/24/18 10/10/19 Aspirin EC [Ecotrin Low Dose] 81 mg PO DAILY 02/22/19 10/10/19 Furosemide [Lasix] 20 mg PO BID 02/22/19 10/10/19 HYDROcodone/APAP 10-325MG [[place] 1 tab PO Q6H PRN 02/22/19 10/10/19 10-325] Losartan Potassium 50 mg PO PC-SUPPER 02/22/19 10/10/19 Nystatin 100,000 Unit/gm Powd 1 applic TOPICAL DAILY 02/22/19 10/10/19 [Mycostatin Powder] Previous Rx's Medication Instructions Recorded Gabapentin [Neurontin] 300 mg PO TID #9 cap 12/06/18 Sulfamethox-Tmp 800-160Mg [Bactrim 1 tab PO Q12HR 10 Days #20 tab 02/22/19 DS 800-160 mg] metroNIDAZOLE [Flagyl] 500 mg PO Q8HR 10 Days #30 tab 02/22/19 Nystatin 100,000 Unit/gm Powd 1 applic TOPICAL TID 10 Days #1 05/20/19 [Mycostatin Powder] bottle Allergies Allergy/AdvReac Type Severity Reaction Status Date / Time adhesive Allergy Rash/Hives Verified 11/10/19 14:12 buspirone [From BuSpar] Allergy Itching Verified 11/10/19 14:12 divalproex sodium Allergy Rash/Hives Verified 11/10/19 14:12 [From Depakote] ibuprofen [From Motrin] Allergy Rash/Hives Verified 11/10/19 14:12 latex Allergy Rash/Hives Verified 11/10/19 14:12 Penicillins Allergy Rash/Hives Verified 11/10/19 14:12 topiramate [From Topamax] Allergy Swelling Verified 11/10/19 14:12 Review of Systems ROS Statement: Those systems with pertinent positive or pertinent negative responses have been documented in the HPI. ROS Other: All systems not noted in ROS Statement are negative. Constitutional: Denies: fever Eyes: Denies: eye pain ENT: Denies: ear pain Respiratory: Denies: cough, dyspnea Cardiovascular: Denies: chest pain Endocrine: Denies: fatigue Gastrointestinal: Denies: abdominal pain Genitourinary: Denies: dysuria Musculoskeletal: Denies: back pain Skin: Denies: rash Neurological: Reports: as per HPI, vertigo. Denies: headache, weakness Past Medical History Past Medical History: Chest Pain / Angina, Heart Failure, Hyperlipidemia, Hypertension, Osteoarthritis (OA), Pneumonia, Seizure Disorder, Skin Disorder, Sleep Apnea/CPAP/BIPAP, Thyroid Disorder Additional Past Medical History / Comment(s): LAST KNOWN SEIZURE a couple months ago. developementally disabled, restless leg syndrme, cervical and back pain with pain down bilateral legs, leg weakness, occasional numbness and tingling to bilateral hands and feet,cpap used currently, abdominal pain. (diarrhea)- right after eating, states has had recent falls, persistant itching-cause unknown, sees pain specialist for chronic pain (entire body) History of Any Multi-Drug Resistant Organisms: None Reported Past Surgical History: Adenoidectomy, Bariatric Surgery, Cholecystectomy, Heart Catheterization, Hysterectomy, Tonsillectomy Additional Past Surgical History / Comment(s): cervical surgery/cage sleeve gastrectomy 12-01-18 Past Anesthesia/Blood Transfusion Reactions: No Reported Reaction Additional Past Anesthesia/Blood Transfusion Reaction / Comment(s): states "was told by my sister's boyfriend that I had trouble breathing and almost during my neck surgery",no hx blood transfusion Date of Last Stent Placement:: 06/03/2014 Past Psychological History: Depression Past Alcohol Use History: None Reported Past Drug Use History: None Reported - Past Family History Father Family Medical History: Cancer Additional Family Medical History / Comment(s): stomach Sister(s) Family Medical History: Cancer Additional Family Medical History / Comment(s): stomach CA Mother Family Medical History: No Reported History Additional Family Medical History / Comment(s): . General Exam Limitations: no limitations General appearance: alert, in no apparent distress Head exam: Present: atraumatic, normocephalic Eye exam: Present: normal appearance, PERRL, EOMI. Absent: nystagmus ENT exam: Present: normal oropharynx Neck exam: Present: normal inspection Respiratory exam: Present: normal lung sounds bilaterally Cardiovascular Exam: Present: regular rate, normal rhythm GI/Abdominal exam: Present: soft. Absent: tenderness Extremities exam: Present: normal inspection Neurological exam: Present: alert, oriented X3, CN II-XII intact Expanded Neurological exam: Present: protecting the airway Patient oriented to: Present: person, place, time Cranial nerves: EOM's Intact: Normal, Facial Sensation: Normal Sensory exam: Upper Extremity Light Touch: Normal, Lower Extremity Light Touch: Normal Motor strength exam: RUE: 5, LUE: 5, RLE: 4, LLE: 4 Eye Response: (4) open spontaneously Motor Response: (6) obeys commands Verbal Response: (5) oriented Psychiatric exam: Present: normal affect, normal mood Skin exam: Present: normal color Course Vital Signs 11/10/19 11/10/19 14:09 16:00 Temperature 98.3 F Pulse Rate 73 59 L Respiratory 18 20 Rate Blood Pressure 123/85 136/85 O2 Sat by Pulse 99 99 Oximetry EKG Findings - EKG Comments: EKG Findings:: Sinus bradycardia 56. VA 172. QRS 96. QT 462. QTC 445. Left axis. Normal QRS. No acute ST change. Medical Decision Making - Medical Decision Making Patient reevaluated and unchanged. Patient updated on results and plan. Case was discussed in detail with Dr. Hancock who agrees with admission of this patient and neurology consult. Etiology of symptoms is unclear at this point. It is possible patient may have had a TIA however neurology will need to be consulted for further evaluation - Lab Data Result diagrams: 11/10/19 15:26 11/10/19 15:26 Lab Results 11/10/19 11/10/19 11/10/19 Range/Units 15:26 15:26 15:26 WBC 9.5 (3.8-10.6) k/uL RBC 4.36 (3.80-5.40) m/uL Hgb 13.2 (11.4-16.0) gm/dL Hct 40.7 (34.0-46.0) % MCV 93.2 (80.0-100.0) fL MCH 30.1 (25.0-35.0) pg MCHC 32.3 (31.0-37.0) g/dL RDW 13.2 (11.5-15.5) % Plt Count 261 (150-450) k/uL Neutrophils % 76 % Lymphocytes % 18 % Monocytes % 4 % Eosinophils % 1 % Basophils % 0 % Neutrophils # 7.2 (1.3-7.7) k/uL Lymphocytes # 1.7 (1.0-4.8) k/uL Monocytes # 0.4 (0-1.0) k/uL Eosinophils # 0.1 (0-0.7) k/uL Basophils # 0.0 (0-0.2) k/uL PT 10.3 (9.0-12.0) sec INR 1.0 (<1.2) APTT 24.7 (22.0-30.0) sec Sodium 139 (137-145) mmol/L Potassium 3.6 (3.5-5.1) mmol/L Chloride 103 (98-107) mmol/L Carbon Dioxide 30 (22-30) mmol/L Anion Gap 6 mmol/L BUN 13 (7-17) mg/dL Creatinine 0.55 (0.52-1.04) mg/dL Est GFR (CKD-EPI)AfAm >90 (>60 ml/min/1.73 sqM) Est GFR (CKD-EPI)NonAf >90 (>60 ml/min/1.73 sqM) Glucose 109 H (74-99) mg/dL Calcium 9.1 (8.4-10.2) mg/dL Total Bilirubin 0.6 (0.2-1.3) mg/dL AST 27 (14-36) U/L ALT 16 (4-34) U/L Alkaline Phosphatase 70 (38-126) U/L Troponin I (0.000-0.034) ng/mL Total Protein 6.4 (6.3-8.2) g/dL Albumin 3.9 (3.5-5.0) g/dL 11/10/19 Range/Units 15:26 WBC (3.8-10.6) k/uL RBC (3.80-5.40) m/uL Hgb (11.4-16.0) gm/dL Hct (34.0-46.0) % MCV (80.0-100.0) fL MCH (25.0-35.0) pg MCHC (31.0-37.0) g/dL RDW (11.5-15.5) % Plt Count (150-450) k/uL Neutrophils % % Lymphocytes % % Monocytes % % Eosinophils % % Basophils % % Neutrophils # (1.3-7.7) k/uL Lymphocytes # (1.0-4.8) k/uL Monocytes # (0-1.0) k/uL Eosinophils # (0-0.7) k/uL Basophils # (0-0.2) k/uL PT (9.0-12.0) sec INR (<1.2) APTT (22.0-30.0) sec Sodium (137-145) mmol/L Potassium (3.5-5.1) mmol/L Chloride (98-107) mmol/L Carbon Dioxide (22-30) mmol/L Anion Gap mmol/L BUN (7-17) mg/dL Creatinine (0.52-1.04) mg/dL Est GFR (CKD-EPI)AfAm (>60 ml/min/1.73 sqM) Est GFR (CKD-EPI)NonAf (>60 ml/min/1.73 sqM) Glucose (74-99) mg/dL Calcium (8.4-10.2) mg/dL Total Bilirubin (0.2-1.3) mg/dL AST (14-36) U/L ALT (4-34) U/L Alkaline Phosphatase (38-126) U/L Troponin I <0.012 (0.000-0.034) ng/mL Total Protein (6.3-8.2) g/dL Albumin (3.5-5.0) g/dL - Radiology Data Radiology results: report reviewed (Computed tomography scan of the brain shows atrophy. No acute intercranial abnormality. CT angiogram head and neck shows variant take off left vertebral artery. Candelario pain carotid vertebral arteries in the neck. Head shows V4 segment slightly hypoplastic as well as a 1 left JAYY.), image reviewed (Chest x-ray shows no acute process) Disposition Clinical Impression: TIA (transient ischemic attack) Disposition: ADMITTED IP TO THIS HOSP Is patient prescribed a controlled substance at d/c from ED?: No Referrals: Júnior Hancock MD [Primary Care Provider] - 1-2 days Decision Time: 16:47
[2019-11-10 15:43] LABS: Basophils % (A) 0 %; Eosinophils # (A) 0.1 k/uL (0-0.7); Eosinophils % (A) 1 %; HCT 40.7 % (34.0-46.0); HGB 13.2 gm/dL (11.4-16.0); Lymphocytes # (A) 1.7 k/uL (1.0-4.8); Lymphocytes % (A) 18 %; MCH 30.1 pg (25.0-35.0); MCHC 32.3 g/dL (31.0-37.0); MCV 93.2 fL (80.0-100.0); Mean Platelet Volume 7.4; Monocytes # (A) 0.4 k/uL (0-1.0); Monocytes % (A) 4 %; Neutrophils # (A) 7.2 k/uL (1.3-7.7); Neutrophils % (A) 76 %; Platelet Count 261 k/uL (150-450); RBC 4.36 m/uL (3.80-5.40); RDW 13.2 % (11.5-15.5); WBC 9.5 k/uL (3.8-10.6)
[2019-11-10 15:55] LABS: Partial Thromboplastin Time 24.7 sec (22.0-30.0); Prothrombin Time 10.3 sec (9.0-12.0)
[2019-11-10 16:00] LABS: ALT 16 U/L (4-34); AST 27 U/L (14-36); African American GFR (CKD) >90 (>60 ml/min/1.73 sqM); Albumin 3.9 g/dL (3.5-5.0); Alkaline Phosphatase 70 U/L (38-126); Anion Gap 6 mmol/L; Blood Urea Nitrogen 13 mg/dL (7-17); Calcium 9.1 mg/dL (8.4-10.2); Carbon Dioxide 30 mmol/L (22-30); Chloride 103 mmol/L (98-107); Glucose 109 mg/dL (74-99); Non-African American GFR(CKD) >90 (>60 ml/min/1.73 sqM); Potassium 3.6 mmol/L (3.5-5.1); Sodium 139 mmol/L (137-145); Total Bilirubin 0.6 mg/dL (0.2-1.3); Total Protein 6.4 g/dL (6.3-8.2)
--- NOTE | 2019-11-10 16:17 | CT ---
EXAMINATION TYPE: CT brain wo con for TPA DATE OF EXAM: 11/10/2019 COMPARISON: 01/04/2016 HISTORY: 59-year-old female with confusion, acute neurologic deficit, stroke suspected, altered menta l status. TECHNIQUE: Examination was done in axial plane without intravenous contrast. Coronal and sagittal r econstructions performed. CT DLP: 1128 mGycm Automated exposure control for dose reduction was used. FINDINGS: There is no evidence of acute intracranial hemorrhage, acute ischemic changes, mass, mass-effect, or extra-axial fluid collection. There is no effacement of cerebral sulci or basal subarachnoid cister ns. There is no hydrocephalus. There is no midline shift. Dangelo-white matter distinction is preserv ed. Mild cerebral cortical volume loss. Paranasal sinuses and mastoid air cells well pneumatized. Leftward nasal septal deviation. Orbits and globes are intact. IMPRESSION: Moderate generalized atrophy. No acute intracranial abnormality seen.
--- NOTE | 2019-11-10 16:24 | XR ---
EXAMINATION TYPE: XR chest 2V DATE OF EXAM: 11/10/2019 COMPARISON: 02/22/2019 HISTORY: 59-year-old female confusion, altered mental status TECHNIQUE: AP and lateral views FINDINGS: Heart upper limits of normal size. Aorta and pulmonary vasculature within normal limits. No consolida tion or pleural effusion. IMPRESSION: Borderline heart size. No acute cardiopulmonary process.
--- NOTE | 2019-11-10 16:32 | CT ---
EXAMINATION TYPE: CT angio head neck DATE OF EXAM: 11/10/2019 COMPARISON: Correlation noncontrast CT brain same day HISTORY: 59-year-old female acute neurologic deficit, stroke suspected, confusion, altered mental sta tus. TECHNIQUE: Contiguous axial scanning of the head and neck performed with IV Contrast, patient injecte d with 65ml mL of Isovue 370. Coronal/sagittal MIP reconstructions performed. 3-D reconstructions gen erated on a dedicated workstation. CT DLP: 449.2 mGycm Automated exposure control for dose reduction was used. FINDINGS: NECK: There is variant direct takeoff of the left vertebral artery directly from the aortic arch. Both vert ebral arteries appear codominant and patent throughout their course. The right common and internal carotid arteries are patent. The left common and internal carotid arteries are patent. HEAD: The V4 segment left vertebral artery becomes slightly hypoplastic after the PICA takeoff. Otherwise, the vertebral and basilar arteries are patent as is the remainder of the posterior circulation. Internal carotid arteries are patent. 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 Otherwise, the anterior circulation is patent. No aneurysmal change is seen. IMPRESSION: 1. 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 WIDELY PA TENT CAROTID AND VERTEBRAL ARTERIES OF THE NECK. 2. HEAD: V4 SEGMENT LEFT VERTEBRAL ARTERY BECOMES SLIGHTLY HYPOPLASTIC AFTER THE PICA TAKEOFF. ALSO, SLIGHTLY HYPOPLASTIC A1 SEGMENT LEFT JAYY. OTHERWISE, NO LARGE VESSEL INTRACRANIAL ARTERIAL OCCLUSION, SIGNIFICANT STENOSIS, OR ANEURYSMAL CHANGE IS SEEN.
[2019-11-10] MEDS ORDERED: ASPIRIN 325 MG TAB PO STA (16:48)
[2019-11-10] MEDS: SODIUM CHLORIDE 0.9% 1,000 ML IV SCH (21:13)
[2019-11-10] MEDS ORDERED: ONDANSETRON ODT 8 MG TAB.RAPDIS PO PRN (22:28)
[2019-11-10] MEDS ORDERED: MECLIZINE 25 MG TAB PO PRN (22:28)
[2019-11-10] MEDS ORDERED: FLUTICASONE 220 MCG INHALER INHALATION PRN (22:28)
[2019-11-10] MEDS ORDERED: ONDANSETRON ODT 4 MG TAB PO PRN (22:35)
[2019-11-10] MEDS ORDERED: rOPINIRole HCL 4 MG TABLET PO SCH (22:45)
[2019-11-10] MEDS: HYDROcodone/APAP 10-325MG 1 EACH TAB PO PRN (22:59)
[2019-11-10] MEDS: GABAPENTIN 300 MG CAP PO SCH (22:59)
[2019-11-10] MEDS: MONTELUKAST 10 MG TAB PO SCH (22:59)
[2019-11-10] MEDS: FUROSEMIDE 20 MG TAB PO SCH (23:02)
--- NOTE | 2019-11-11 00:17 | HP ---
HISTORY AND PHYSICAL A 59-year-old white female who came in with possible TIA symptomatology, felt dizziness, lightheadedness and spinning, fully confused. Says her speech was off. She was unable to think of things, a little bit worse than normal. Isolated area of weakness and dizziness and off-balance. ER admitted her for a TIA type symptomatology with Neurology consult. HOME MEDICINES: Home medicines include: 1. Claritin 10 mg daily. 2. Antivert 25 q.8. 3. Norvasc 10 mg daily. 4. Singulair 10 mg daily. 5. Keppra 1000 q.12 hours. 6. Ropinirole b.i.d. 7. Aspirin 81 daily. 8. Lasix 20 mg b.i.d. 9. [place] 10 q.6. 10.Losartan 50 daily. 11.Nystatin swish and swallow q.i.d. ALLERGIES: ADHESIVES, BUSPAR, DEPAKOTE, MOTRIN, LATEX, PENICILLINS. REVIEW OF SYSTEMS: Fourteen-point review of systems negative except for mentioned in HPI. PAST MEDICAL HISTORY: Heart failure, dyslipidemia, hypertension, osteoarthritis, pneumonia, seizures, sleep apnea, restless leg syndrome. PAST SURGICAL HISTORY: Cervical surgery, sleeve gastrectomy, cholecystectomy, heart catheterization, bariatric surgery, adenoidectomy. FAMILY HISTORY: Father with cancer of the stomach. Sister with cancer of the stomach. PHYSICAL EXAMINATION: She is slow to respond. She has slow mentation anyway. She looks pale, weak. Dry skin turgor, poor mucous membranes, on integumentary exam. CARDIOVASCULAR: S1, S2. LUNGS: Clear. GI: Soft. VITAL SIGNS: Temperature 98.1, pulse 59 to 73, respiratory rate 18 to 20, blood pressure 127 to 130s over 80s, oxygen 99%. EKG sinus bradycardia. ASSESSMENT: 1. Transient ischemic attack. 2. Some mild dehydration. 3. Altered mental status, unclear etiology. Await for neurology consult. Maybe run an EEG. Make sure there is no urinary tract infection. MMODL / IJN: [id number] /
[2019-11-11 03:10] LABS: Cholesterol 201 mg/dL (<200); HDL Cholesterol 42 mg/dL (40-60); LDL Cholesterol,Calculated 116 mg/dL (0-99); Triglycerides 213 mg/dL (<150)
[2019-11-11] MEDS: SODIUM CHLORIDE 0.9% 1,000 ML IV SCH ×2 (04:04→16:57)
[2019-11-11] MEDS: LEVOTHYROXINE 137 MCG TAB PO SCH (06:33)
[2019-11-11] MEDS: HYDROcodone/APAP 10-325MG 1 EACH TAB PO PRN ×2 (06:38→23:28)
[2019-11-11] MEDS: PANTOPRAZOLE 40 MG TABLET PO SCH (08:47)
[2019-11-11] MEDS: ASPIRIN 81 MG PO SCH (08:47)
[2019-11-11] MEDS: LORATADINE 10 MG TAB PO SCH (08:47)
[2019-11-11] MEDS: GABAPENTIN 300 MG CAP PO SCH ×3 (08:47→23:23)
[2019-11-11] MEDS: FUROSEMIDE 20 MG TAB PO SCH ×2 (08:47→20:17)
[2019-11-11] MEDS: POTASSIUM CHLORIDE ER 10 MEQ TAB.ER.PRT PO SCH (08:47)
[2019-11-11] MEDS ORDERED: ASPIRIN 325 MG TAB PO SCH (09:00)
[2019-11-11] MEDS: TRIAMTERENE-HCTZ 37.5-25MG 1 EACH TAB PO SCH (09:11)
[2019-11-11] MEDS: FORMOTEROL FUMARATE 20 MCG/2 ML NEBU INHALATION SCH ×2 (09:18→19:44)
[2019-11-11] MEDS: IPRATROPIUM 0.5 MG/2.5 ML NEBU INHALATION SCH ×5 (09:18→19:44)
--- NOTE | 2019-11-11 10:04 | ECHOF ---
Referral Reason:Thrombus MEASUREMENTS -------- HEIGHT: 170.2 cm WEIGHT: 84.8 kg BP: 123/80 RVIDd: 2.6 cm (< 3.3) IVSd: 1.1 cm (0.6 - 1.1) LVIDd: 4.6 cm (3.9 - 5.3) LVPWd: 1.5 cm (0.6 - 1.1) IVSs: 1.7 cm LVIDs: 3.2 cm LVPWs: 1.8 cm LAESV Index (A-L): 25.21 ml/m Ao Diam: 3.1 cm (2.0 - 3.7) AV Cusp: 1.9 cm (1.5 - 2.6) MV EXCURSION: 19.740 mm (> 18.000) MV EF SLOPE: 101 mm/s (70 - 150) EPSS: 0.4 cm MV E Anshu: 1.11 m/s MV DecT: 288 ms MV A Anshu: 1.30 m/s MV E/A Ratio: 0.85 RAP: 5.00 mmHg RVSP: 36.66 mmHg FINDINGS -------- Sinus rhythm. This was a technically adequate study. The left ventricular size is normal. There is mild concentric left ventricular hypertrophy. Overa ll left ventricular systolic function is normal with, an EF between 55 - 60 %. The diastolic fillin g pattern is normal for the age of the patient 18.84. The right ventricle is normal in size. Normal LA size by volume 22+/-6 ml/m2. The right atrial size is normal. Interatrial and interventricular septum intact. The aortic valve is trileaflet, and appears structurally normal. No aortic stenosis or regurgitation. The mitral valve is normal. No mitral regurgitation. Mild tricuspid regurgitation present. There is mild pulmonary hypertension. The right ventricular systolic pressure, as measured by Doppler, is 36.66mmHg. There is no pulmonic regurgitation present. The aortic root size is normal. The inferior vena cava is mildly dilated. There is no pericardial effusion. CONCLUSIONS -------- 1. There is mild concentric left ventricular hypertrophy. 2. Overall left ventricular systolic function is normal with, an EF between 55 - 60 %. 3. The diastolic filling pattern is normal for the age of the patient 18.84 4. Normal LA size by volume 22+/-6 ml/m2. 5. The aortic valve is trileaflet, and appears structurally normal. No aortic stenosis or regurgitati on. 6. The mitral valve is normal. 7. Mild tricuspid regurgitation present. 8. There is mild pulmonary hypertension. 9. The inferior vena cava is mildly dilated. HOSPITAL AIDES AND ASSISTANTS TEACHER: Adriana Zacarias RDCS
--- NOTE | 2019-11-11 13:57 | P.CNNES ---
History of Present Illness Consult date: 11/11/19 Requesting physician: Naun Gómez Reason for Consult: Dizziness and confusion evaluate for TIA History of Present Illness: This is a 59-year-old right-handed female with history of seizure, multiple falls in the past that presented to the emergency department on 11/10/2019 with dizziness. She feels that the room is spinning. Patient states that her sister questioned if her speech was off. She feels she is able to think of things but takes a little bit longer. She woke-up with symptoms on 11/10/19 and last normal was 9pm on 11/09/19. Denies any focal weakness. She feels somewhat off balance. She feels her speech is not back to baseline and she was told by her sister her speech is not back to baseline. In the ED the workup consisted a CT of the head which reporte as moderate generalized atrophy. No acute intracranial abnormality seen. CTA of the head and neck showed no large vessel intracranial artery occlusion, significant stenosis or aneurysm changes seen. 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 Also slight hypoplastic A1 segment left JAYY. EKG showed sinus bradycardia with ventricular rate of 56. Otherwise normal EKG. She was seen last by our neurology team on 01/05/2016. She had a routine EEG at that time and was reported within normal limits. She also had another EEG on 12/04/2015 and it was reported as normal she also had one in 2014 in our system and it was read as can be considered abnormal due to the presence of dysmetria and occasional sharp waves which is consistent with a reduced seizure threshold. No epileptiform discharges were seen. He had MRI of the brain on 06/28/2018 and was reported as mild high bilateral frontal lobe atrophy and minimal chronic small vessel ischemic change stenosis patient and has been. No evidence of recent infarct. Last vitamin B12 was normal and it was 358 on 10/10/2019. TSH last done on 10/10/2019 also was low was 0.03, the free T3 was 3.8 which is normal free T4 was 1.02. The folate was 24.0. On one of reports it mention she has multiple sclerosis which she denies. Regarding her history of seizure she said she had work-up at [facility] and was more than 10 years ago and had epilepsy monitoring unit and was told she has seizure. She is on Keppra 1gm bid. This episode is not typical of her seizure. She is also on ASA 81mg at home and has not missed her medication. Regarding her history of falls she said her legs give out on her. Review of Systems Review of system: The 12 point system was reviewed and apparent positive and negative per HPI. Past Medical History Past Medical History: Chest Pain / Angina, Heart Failure, Hyperlipidemia, Hypertension, Osteoarthritis (OA), Pneumonia, Seizure Disorder, Skin Disorder, Sleep Apnea/CPAP/BIPAP, Thyroid Disorder Additional Past Medical History / Comment(s): LAST KNOWN SEIZURE a couple months ago. developementally disabled, restless leg syndrme, cervical and back pain with pain down bilateral legs, leg weakness, occasional numbness and tingling to bilateral hands and feet,cpap used currently, abdominal pain. (diarrhea)- right after eating, states has had recent falls, persistant itching-cause unknown, sees pain specialist for chronic pain (entire body) History of Any Multi-Drug Resistant Organisms: None Reported Past Surgical History: Adenoidectomy, Bariatric Surgery, Cholecystectomy, Heart Catheterization, Hysterectomy, Tonsillectomy Additional Past Surgical History / Comment(s): cervical surgery/cage sleeve gastrectomy 12-01-18 Past Anesthesia/Blood Transfusion Reactions: No Reported Reaction Additional Past Anesthesia/Blood Transfusion Reaction / Comment(s): states "was told by my sister's boyfriend that I had trouble breathing and almost during my neck surgery",no hx blood transfusion Date of Last Stent Placement:: 06/03/2014 Past Psychological History: Depression Additional Psychological History / Comment(s): Pt states she currently resides with her sister. She is mildly developmentally delayed. 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 Past Drug Use History: None Reported - Past Family History Father Family Medical History: Cancer Additional Family Medical History / Comment(s): stomach Sister(s) Family Medical History: Cancer Additional Family Medical History / Comment(s): stomach CA Mother Family Medical History: No Reported History Additional Family Medical History / Comment(s): . Medications and Allergies Home Medications Medication Instructions Recorded Confirmed Type rOPINIRole HCL 10 mg PO HS 02/04/16 11/10/19 History Loratadine [Claritin] 10 mg PO DAILY 06/28/18 11/10/19 History Meclizine [Antivert] 25 mg PO BID PRN 06/28/18 11/10/19 History Montelukast [Singulair] 10 mg PO HS 07/19/18 11/10/19 History Gabapentin [Neurontin] 300 mg PO TID #9 cap 12/06/18 11/10/19 Rx Aspirin EC [Ecotrin Low Dose] 81 mg PO DAILY 02/22/19 11/10/19 History Furosemide [Lasix] 20 mg PO BID 02/22/19 11/10/19 History Fluticasone Propionate 220 Mcg 2 puff INHALATION BID PRN 11/10/19 11/10/19 History [Flovent 220 Mcg Inhaler (Mhu)] Levothyroxine Sodium 137 mcg PO DAILY 11/10/19 11/10/19 History Ondansetron Odt [Zofran ODT] 8 mg PO BID PRN 11/10/19 11/10/19 History Pantoprazole [Protonix] 40 mg PO DAILY 11/10/19 11/10/19 History Potassium Chloride ER [K-Dur 10] 10 meq PO DAILY 11/10/19 11/10/19 History Triamterene/Hydrochlorothiazid 1 each PO DAILY 11/10/19 11/10/19 History [Triamterene-Hctz 37.5-25 mg Tb] Umeclidinium Brm/Vilanterol Tr 1 puff INHALATION RT-DAILY 11/10/19 11/10/19 History [Anoro Ellipta 62.5-25 Mcg INH] Allergies Allergy/AdvReac Type Severity Reaction Status Date / Time adhesive Allergy Rash/Hives Verified 11/10/19 17:32 buspirone [From BuSpar] Allergy Itching Verified 11/10/19 17:32 divalproex sodium Allergy Rash/Hives Verified 11/10/19 17:32 [From Depakote] ibuprofen [From Motrin] Allergy Rash/Hives Verified 11/10/19 17:32 latex Allergy Rash/Hives Verified 11/10/19 17:32 Penicillins Allergy Rash/Hives Verified 11/10/19 17:32 topiramate [From Topamax] Allergy Swelling Verified 11/10/19 17:32 Physical Examination - Vital Signs Vital Signs: Vital Signs Temp Pulse Pulse Resp BP BP Pulse Ox 11/11/19 09:35 60 11/11/19 09:28 60 11/11/19 09:27 60 11/11/19 09:19 60 11/11/19 09:00 97.5 F L 63 18 151/85 100 11/11/19 03:00 97.3 F L 61 18 123/80 96 11/10/19 21:00 97.4 F L 56 L 18 122/81 98 11/10/19 18:17 98.1 F 18 151/91 100 11/10/19 17:00 98.3 F 78 18 142/77 99 11/10/19 16:00 80 18 132/90 99 11/10/19 14:09 98.3 F 73 18 123/85 99 Intake and Output 11/10/19 11/11/19 11/11/19 22:59 06:59 14:59 Intake Total 200 Output Total 150 Balance 50 Intake: Intake, IV Titration 200 Amount Sodium Chloride 0.9% 1, 200 000 ml @ 100 mls/hr IV . Q10H [facility] Rx#:[id number] Output: Urine 150 Other: Voiding Method Toilet Toilet Toilet # Voids 2 2 # Bowel Movements 2 Weight 85.003 kg GENERAL: The patient is lying in bed and is not in acute distress. CHEST: The heart rate is regular rate rhythm. No murmurs to auscultation. No carotid bruit bilaterally. LUNG: Clear to auscultation bilaterally no wheezing noted throughout. Not labored breathing. ABDOMEN/GI: Bowel sounds present in all 4 quadrants. No tenderness to palpation throughout. NEUROLOGICAL: Higher mental function: The patient is awake, alert, oriented to self, place and time. Patient is following commands. No aphasia and no neglect. I did not detect aphasia. Cranial nerves: The pupils are round, equal and reactive to light and accommodation. Visual stoll are full to confrontation throughout. Extraocular movement is intact no nystagmus is noted. Facial sensation is normal to touch throughout. The facial strength is normal throughout. Hearing is normal bilate rally to hand rub. Tongue is midline and moved [id number] without any difficulty. No dysarthria is noted. Shoulder shrug is normal bilaterally. Motor: Gait is defered. The strength there was effort related, I did not appreciate any focality and felt it was 4+ to 5- throughout. Normal tone and bulk. Cerebellum: Normal finger to nose heel to chin bilaterally. Sensation: Sensation is normal to touch throughout. Reflexes (right/left): 2+ throughout except at ankles 1+ bilaterally. Plantars are downgoing bilaterally. NIH storke scale: 0 Results Lipid profile: LDL is 116, HDL 42, cholesterol is 201, triglycerides 213. AST of 27, ALP of 16. - Laboratory Findings CBC and BMP: 11/10/19 15:26 11/10/19 15:26 Abnormal Lab Findings: Abnormal Labs 11/10/19 11/10/19 15:26 15:26 Glucose 109 H Triglycerides 213 H Cholesterol 201 H LDL Cholesterol, Calc 116 H Assessment and Plan Assessment: This is a 59-year-old right-handed female with history of seizure, multiple falls in the past that presented to the emergency department on 11/10/2019 with dizziness. She feels that the room is spinning. Patient states that her sister questioned if her speech was off. She felt she could not get her words out. She feels she is able to think of things but takes a little bit longer. Denies any focal weakness. She feels somewhat off balance. On exam NIH stroke scale of 0. She feel her speech is still off. Transient ischemic attack. seizure disorder (diagnosed 10 years ago) multiple falls Heart failure Plan: Transient episode of dizziness and unable to get her words out could be TIA. CT of the head which reporte as moderate generalized atrophy. No acute intracranial abnormality seen. CTA of the head and neck showed no large vessel intracranial artery occlusion, significant stenosis or aneurysm changes seen. 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 Also slight hypoplastic A1 segment left JAYY. She also had an echocardiogram on 11/11/2019 and was reported as mild concentric left ventricular hypertrophy. Ejection fraction of 55-60%. Normal left atrial size. No aortic stenosis or regurgitation. Mitral valve is normal. Ordered MRI Brain to rule out stroke. Lipid profile: LDL is 116, HDL 42, cholesterol is 201, triglycerides 213. Currently she is on ASA 81mg. Consider adding Plavix 75mg ontop of ASA for 21 days then discontinue Plavix. Started her on Lipitor 20mg daily with goal <70. Regarding her history of seizures: She states she is on Keppra 1gm bid so we will start her. Recommend to follow-up with neurologist regarding management. Regarding her falls recommend PT/OT and possible rehab. IF MRI Brain is negative for stroke no further work-up and she is stable from neurology perspective. Patient needs to follow-up with neurologist as outpatient. Edmar Boss MD Neuro-hospitalist.
[2019-11-11] MEDS: levETIRAcetam 500 MG TAB PO SCH ×2 (14:39→20:17)
[2019-11-11] MEDS: ATORVASTATIN 20 MG TAB PO SCH (20:17)
[2019-11-11] MEDS: MONTELUKAST 10 MG TAB PO SCH (20:17)
[2019-11-12] MEDS: SODIUM CHLORIDE 0.9% 1,000 ML IV SCH ×3 (02:00→21:35)
--- NOTE | 2019-11-12 05:59 | PN ---
PROGRESS NOTE The patient was seen by Neurology. She still has dizziness and confusion, evaluating for TIA. The patient feels weak and fatigued. Cardiovascular S1-S2. Lungs clear. GI soft. Hematology negative Homans. Psych fair mood and affect. ASSESSMENT: 1. Transient ischemic attack .. 2. Seizure disorder. 3. Multiple falls. 4. Heart failure. PLAN: Start on Lipitor. Continue on Keppra per MRI. Prognosis is guarded. Possible discharge home tomorrow if doing better and if cleared from Neurology and if MRI is negative. MMODL / IJN: [id number] /
[2019-11-12] MEDS: LEVOTHYROXINE 137 MCG TAB PO SCH (06:40)
[2019-11-12] MEDS: FORMOTEROL FUMARATE 20 MCG/2 ML NEBU INHALATION SCH ×2 (08:41→19:53)
[2019-11-12] MEDS: IPRATROPIUM 0.5 MG/2.5 ML NEBU INHALATION SCH ×4 (08:41→19:53)
[2019-11-12] MEDS: levETIRAcetam 500 MG TAB PO SCH ×2 (08:51→21:35)
[2019-11-12] MEDS: ASPIRIN 81 MG PO SCH (08:51)
[2019-11-12] MEDS: TRIAMTERENE-HCTZ 37.5-25MG 1 EACH TAB PO SCH (08:52)
[2019-11-12] MEDS: PANTOPRAZOLE 40 MG TABLET PO SCH (08:52)
[2019-11-12] MEDS: LORATADINE 10 MG TAB PO SCH (08:52)
[2019-11-12] MEDS: FUROSEMIDE 20 MG TAB PO SCH ×2 (08:52→21:35)
[2019-11-12] MEDS: GABAPENTIN 300 MG CAP PO SCH ×3 (08:52→21:35)
[2019-11-12] MEDS: POTASSIUM CHLORIDE ER 10 MEQ TAB.ER.PRT PO SCH (08:52)
--- NOTE | 2019-11-12 13:11 | MR ---
EXAMINATION TYPE: MR brain wo con DATE OF EXAM: 11/12/2019 12:35 PM. COMPARISON: NONE. HISTORY: Aphasia. Technique: Multiplanar, multiecho imaging of the brain was obtained without intravenous contrast. FINDINGS: Midline structures are unremarkable. There is a normal craniocervical junction. Echoplanar diffusion imaging shows no areas of restricted diffusion. There are normal vascular flow voids. The orbits are unremarkable. There is no evidence of a CP angle mass lesion. There are scattered high signal FLAIR lesions in the deep white matter tracts of both cerebral hemisp heres. The largest of these is in the left superior longitudinal fasciculus and measures 5.4 mm. Ther e is no mass effect, midline shift or intracranial blood. IMPRESSION: SCATTERED HIGH SIGNAL FLAIR LESIONS IN THE DEEP WHITE MATTER TRACTS OF THE CEREBRAL HEMISPHERES ARE N ONSPECIFIC. A DIFFERENTIAL DIAGNOSIS INCLUDES DEMYELINATION, HYPERTENSION, SMALL VESSEL DISEASE, MIGR ELSI HEADACHES AND LYME'S DISEASE.
[2019-11-12] MEDS: ATORVASTATIN 20 MG TAB PO SCH (21:35)
[2019-11-12] MEDS: MONTELUKAST 10 MG TAB PO SCH (21:36)
[2019-11-12] MEDS ORDERED: HYDROcodone/APAP 10-325MG 1 EACH TAB PO PRN (21:42)
--- NOTE | 2019-11-12 23:13 | PN ---
PROGRESS NOTE 59-year-old white female. She had a brain MRI today. The patient states she is very weak. She had negative angiography CT and brain CT. As mentioned, she had a brain MRI which showed normal orbits, normal vascular flow, scattered high signal FLAIR lesions in deep white matter, nonspecific. Hypertension, small-vessel disease, migraine, Lyme disease, demyelination. No signs of stroke. The patient will possibly be discharged home tomorrow or to rehab center if she continues to be weak. Will get PT/OT to move her around. Increase her pain medicines to her home dose at home and possible discharge home. I think she has been cleared by Neurology as well as Cardiology. MMODL / IJN: [id number] /
[2019-11-13] MEDS: LEVOTHYROXINE 137 MCG TAB PO SCH (06:14)
[2019-11-13] MEDS: SODIUM CHLORIDE 0.9% 1,000 ML IV SCH (06:14)
[2019-11-13] MEDS: IPRATROPIUM 0.5 MG/2.5 ML NEBU INHALATION SCH ×2 (08:10→11:39)
[2019-11-13] MEDS: FORMOTEROL FUMARATE 20 MCG/2 ML NEBU INHALATION SCH (08:10)
[2019-11-13 08:27] VITALS: BP 138/83; RESP 16; TEMP 98.1
[2019-11-13] MEDS: LORATADINE 10 MG TAB PO SCH (09:10)
[2019-11-13] MEDS: ASPIRIN 81 MG PO SCH (09:10)
[2019-11-13] MEDS: POTASSIUM CHLORIDE ER 10 MEQ TAB.ER.PRT PO SCH (09:10)
[2019-11-13] MEDS: levETIRAcetam 500 MG TAB PO SCH (09:10)
[2019-11-13] MEDS: TRIAMTERENE-HCTZ 37.5-25MG 1 EACH TAB PO SCH (09:10)
[2019-11-13] MEDS: GABAPENTIN 300 MG CAP PO SCH (09:10)
[2019-11-13] MEDS: FUROSEMIDE 20 MG TAB PO SCH (09:11)
[2019-11-13] MEDS: PANTOPRAZOLE 40 MG TABLET PO SCH (09:14)
[2019-11-13 11:48] VITALS: PULSE 68
== END 2019-11-13 13:21 | disposition home or self-care (01) ==
LOC: EC 14:06 → EEVIPCON 16:48 → 3NCARDOBS 16:48
PROVIDERS: ADMIT Family Medicine; ATTEND Family Medicine
DX: G45.9 Transient cerebral ischemic attack, unspecified (principal); I11.0 Hypertensive heart disease with heart failure; R00.1 Bradycardia, unspecified; E86.0 Dehydration; R29.6 Repeated falls; R41.82 Altered mental status, unspecified; E78.5 Hyperlipidemia, unspecified; M19.90 Unspecified osteoarthritis, unspecified site; R19.7 Diarrhea, unspecified; Z87.01 Personal history of pneumonia (recurrent); G40.909 Epilepsy, unspecified, not intractable, without status epilepticus; G47.30 Sleep apnea, unspecified; Z99.89 Dependence on other enabling machines and devices; E07.9 Disorder of thyroid, unspecified; F89 Unspecified disorder of psychological development; G25.81 Restless legs syndrome; G89.29 Other chronic pain; Z98.84 Bariatric surgery status; Z90.49 Acquired absence of other specified parts of digestive tract; Z95.5 Presence of coronary angioplasty implant and graft; Z98.890 Other specified postprocedural states; F32.9 Major depressive disorder, single episode, unspecified; Z80.0 Family history of malignant neoplasm of digestive organs; Z79.82 Long term (current) use of aspirin; Z79.891 Long term (current) use of opiate analgesic; Z79.890 Hormone replacement therapy; Z79.899 Other long term (current) drug therapy; Z88.6 Allergy status to analgesic agent; Z91.040 Latex allergy status; Z88.0 Allergy status to penicillin; Z88.8 Allergy status to other drugs, medicaments and biological substances; Z91.09 Other allergy status, other than to drugs and biological substances; G35 Multiple sclerosis; G43.909 Migraine, unspecified, not intractable, without status migrainosus; Z90.710 Acquired absence of both cervix and uterus
CPT/HCPCS: 96361 ×5; 96360; 99285; 36415; 94640 ×6; 94760; 93005; 93306; 97116; 97162; 97166; 92523; 80061; 80053; 84484; 85025; 85610; 85730; 71046; 70496; 70450; 70498; 70551; G0378 ×4; U0003; Q9967

== ENCOUNTER → 2019-11-14 | Outpatient (CLI) | payer MEDICARE, OTHER ==
[2019-11-14 13:10] VITALS: BP 137/101; PULSE 97; RESP 16; TEMP 98.5; BMI 31.0
--- NOTE | 2019-11-21 13:38 | P.HPBAR ---
Bariatric H&P - History & Physicial H&P Date: 11/14/19 History & Physicial: Visit/CC: 137/101 Patient initial contact: Initial weight: 137.438 kg Initial weight in pounds: 303.00 Height: 5 ft 7 in Initial BMI: 47.4 Last weight: Current weight: 89.811 kg Current weight in pounds: 198.00 Current BMI: 31.0 [place] body weight (based on NIH guidelines): 61.235 kg Excess body weight loss: 62.4% The patient is a 59 year-old F who presents for Bariatric Assessment. Patient presents today for sleeve gastrectomy follow-up. Patient had a recent hospital position for workup of syncope. She underwent stroke workup. This is negative. She's had some mild GERD. She is able to drink water without difficulty. She's had some mild GERD. Past Medical History Past Medical History: Chest Pain / Angina, Heart Failure, Hyperlipidemia, Hypertension, Osteoarthritis (OA), Pneumonia, Seizure Disorder, Skin Disorder, Sleep Apnea/CPAP/BIPAP, Thyroid Disorder Additional Past Medical History / Comment(s): LAST KNOWN SEIZURE a couple months ago. developementally disabled, restless leg syndrme, cervical and back pain with pain down bilateral legs, leg weakness, occasional numbness and tingling to bilateral hands and feet,cpap used currently, abdominal pain. (diarrhea)- right after eating, states has had recent falls, persistant itching-cause unknown, sees pain specialist for chronic pain (entire body) History of Any Multi-Drug Resistant Organisms: None Reported Past Surgical History: Adenoidectomy, Bariatric Surgery, Cholecystectomy, Heart Catheterization, Hysterectomy, Tonsillectomy Additional Past Surgical History / Comment(s): cervical surgery/cage sleeve gastrectomy 12-01-18 Past Anesthesia/Blood Transfusion Reactions: No Reported Reaction Additional Past Anesthesia/Blood Transfusion Reaction / Comm: states "was told by my sister's boyfriend that I had trouble breathing and almost during my neck surgery",no hx blood transfusion Date of Last Stent Placement:: 06/03/2014 Past Psychological History: Depression Additional Psychological History / Comment(s): Pt states she currently resides with her sister. She is mildly developmentally delayed. 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 Past Drug Use History: None Reported - Past Family History Father Family Medical History: Cancer Additional Family Medical History / Comment(s): stomach Sister(s) Family Medical History: Cancer Additional Family Medical History / Comment(s): stomach CA Mother Family Medical History: No Reported History Additional Family Medical History / Comment(s): . Surgical - Exam Vital Signs Temp Pulse Resp BP 98.5 F 97 16 137/101 11/14/19 13:07 11/14/19 13:07 11/14/19 13:07 11/14/19 13:07 - General well developed, well nourished - Eyes PERRL - ENT normal pinna - Neck no masses - Respiratory normal expansion - Cardiovascular Rhythm: regular - Abdomen Abdomen: soft, non tender Bariatric Assessment & Plan Plan: Patient's a well-formed Mike standpoint. She will follow-up with her medical doctor for her workup of her stroke symptoms. Patient GERD is minimal be observed. She is able to eat without difficulty. Bariatric Checklist Checklist: Plan: Checklist: EGD: 1. Hiatal hernia: 2. H. Pylori: HgbA1c: Vitamin D: Smoking: Never smoker Primary care physician referral: PCP Barbara Carter=, [facility] Psychiatry clearance: Cardiology clearance: Sleep study: Diet journal: VTE risk score: VTE risk level: Rehab needs at discharge:
== END ==
LOC: BARWHC3 10:57
PROVIDERS: ATTEND Surgery
DX: Z48.815 Encounter for surgical aftercare following surgery on the digestive system (principal); K21.9 Gastro-esophageal reflux disease without esophagitis; Z98.84 Bariatric surgery status; Z90.49 Acquired absence of other specified parts of digestive tract
CPT/HCPCS: 99211

== ENCOUNTER 2019-11-25 10:13 | Inpatient (IN) | payer MEDICARE, OTHER ==
[2019-11-25] MEDS ORDERED: DICLOFENAC SODIUM GEL 100 GM TUBE TOPICAL PRN (14:17)
[2019-11-25] MEDS ORDERED: ONDANSETRON ODT 8 MG TAB.RAPDIS PO PRN (15:10)
[2019-11-25] MEDS ORDERED: MECLIZINE 25 MG TAB PO PRN (15:10)
[2019-11-25 15:16] LABS: Basophils # (A) 0.1 k/uL (0-0.2); Basophils % (A) 1 %; Eosinophils # (A) 0.1 k/uL (0-0.7); Eosinophils % (A) 1 %; HCT 42.2 % (34.0-46.0); HGB 13.2 gm/dL (11.4-16.0); Lymphocytes # (A) 2.9 k/uL (1.0-4.8); Lymphocytes % (A) 32 %; MCH 29.7 pg (25.0-35.0); MCHC 31.4 g/dL (31.0-37.0); MCV 94.5 fL (80.0-100.0); Mean Platelet Volume 7.7; Monocytes # (A) 0.4 k/uL (0-1.0); Monocytes % (A) 4 %; Neutrophils # (A) 5.5 k/uL (1.3-7.7); Neutrophils % (A) 60 %; Platelet Count 305 k/uL (150-450); RBC 4.46 m/uL (3.80-5.40); WBC 9.1 k/uL (3.8-10.6)
[2019-11-25] MEDS: SODIUM CHLORIDE 0.9% 1,000 ML IV SCH (15:17)
[2019-11-25 15:26] LABS: ALT 22 U/L (4-34); AST 30 U/L (14-36); African American GFR (CKD) >90 (>60 ml/min/1.73 sqM); Albumin 4.3 g/dL (3.5-5.0); Alkaline Phosphatase 81 U/L (38-126); Anion Gap 4 mmol/L; Blood Urea Nitrogen 18 mg/dL (7-17); Calcium 9.7 mg/dL (8.4-10.2); Carbon Dioxide 28 mmol/L (22-30); Chloride 105 mmol/L (98-107); Glucose 95 mg/dL (74-99); Magnesium 2.1 mg/dL (1.6-2.3); Non-African American GFR(CKD) >90 (>60 ml/min/1.73 sqM); Potassium 3.2 mmol/L (3.5-5.1); Sodium 137 mmol/L (137-145); Total Bilirubin 0.5 mg/dL (0.2-1.3); Total Protein 6.8 g/dL (6.3-8.2)
[2019-11-25 16:47] LABS: T4, Free (Free Thyroxine) 1.69 ng/dL (0.78-2.19)
--- NOTE | 2019-11-25 17:12 | P.CNNES ---
History of Present Illness Consult date: 11/25/19 Requesting physician: Júnior Hancock Reason for Consult: Syncope History of Present Illness: Patient is a 59-year-old female, who has history of seizure disorder, also has some cognitive slowing, came to the hospital from her PCP office for recurrent syncopal spells. Patient is not a good historian, not able to tell details about her history. Patient tells me that she has history of seizure disorder since she was in her 40s. She has staring spells, in which she "taps and hums". Patient states that her seizures were well controlled for over a year, but about 3-4 weeks ago they have reappeared and has occurred 6 so far. Patient states that she underwent gastric sleeve surgery on 12/01/2018. She used to weigh 366 pounds, and now she is down to 197 pounds. Since her gastric sleeve surgery, patient has been having dizzy spells. Patient also has been having dizzy spells in which she sometimes passes out. Patient believes the dizzy spells aren't because she has lost so much weight, that the medications are now too much for her. When I asked patient about her current seizure medication, she states, is on Topamax. I told her that her home medications does not list Topamax, when she states that she is probably ALLERGIC to it. Patient is currently on Keppra 1000 mg twice a day. Patient states that she used to follow Dr. Thomas. Since he left the practice, patient started seeing Dr. Villanueva, but then he also stopped seeing her. Lately patient is not seeing any neurologist. Patient apparently was just recently admitted to the hospital, and was evaluated by Dr. Edmar Boss on 11/10/2019, at which time she had presented with dizziness and confusion. She was complaining of room spinning and there were some concerns of patient's speech was off. Her balance was off. TIA were suspected. Patient underwent MRI of the brain, which revealed no acute process. Patient had a 2-D echo on 11/11/2019, which revealed mild concentric LVH. EF is between 55-60%. Normal left atrial size. 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 Widely patent carotid and vertebral arteries of the neck. CTA of head showed V4 segment left vertebral artery become slightly hypoplastic after the PICA takeoff. Also slightly hypoplastic A1 segment left JAYY. Otherwise no large vessel intracranial arterial occlusions, significant stenosis or aneurysmal change seen. Her last B12 is 358 on 10/10/2019, folate > 24.0. Patient also tells me that she has an episode of disorientation in December 2018, when she took off her home at 3 AM and no one could locate her. Police found her, and was taken to the hospital where she stayed for 5 days. Patient denies any tobacco or alcohol. Patient used to see Dr. Villanueva, but has not seen him for some time. Review of Systems Patient has balance problem, dizzy spells. Denies any problem with vision. Denies any hoarseness so through dysphagia. Denies any chest pain shortness of breath wheezing or cough. Denies abdominal pain. Past Medical History Past Medical History: Chest Pain / Angina, Heart Failure, Hyperlipidemia, Hypertension, Osteoarthritis (OA), Pneumonia, Seizure Disorder, Skin Disorder, Sleep Apnea/CPAP/BIPAP, Thyroid Disorder Additional Past Medical History / Comment(s): LAST KNOWN SEIZURE a couple months ago. developementally disabled, restless leg syndrme, cervical and back pain with pain down bilateral legs, leg weakness, occasional numbness and tingling to bilateral hands and feet,cpap used currently, abdominal pain. (diarrhea)- right after eating, states has had recent falls, persistant itching-cause unknown, sees pain specialist for chronic pain (entire body) History of Any Multi-Drug Resistant Organisms: None Reported Past Surgical History: Adenoidectomy, Bariatric Surgery, Cholecystectomy, Heart Catheterization, Hysterectomy, Tonsillectomy Additional Past Surgical History / Comment(s): cervical surgery/cage sleeve gastrectomy 12-01-18 Past Anesthesia/Blood Transfusion Reactions: No Reported Reaction Additional Past Anesthesia/Blood Transfusion Reaction / Comment(s): states "was told by my sister's boyfriend that I had trouble breathing and almost during my neck surgery",no hx blood transfusion Date of Last Stent Placement:: 06/03/2014 Past Psychological History: Depression Additional Psychological History / Comment(s): Pt states she currently resides with her sister. She is mildly developmentally delayed. public guardian with sister as co-guardian Smoking Status: Never smoker Past Alcohol Use History: None Reported Past Drug Use History: None Reported - Past Family History Father Family Medical History: Cancer Additional Family Medical History / Comment(s): stomach Sister(s) Family Medical History: Cancer Additional Family Medical History / Comment(s): stomach CA Mother Family Medical History: No Reported History Additional Family Medical History / Comment(s): . Medications and Allergies Home Medications Medication Instructions Recorded Confirmed Type Loratadine [Claritin] 10 mg PO DAILY 06/28/18 11/25/19 History Meclizine [Antivert] 25 mg PO BID PRN 06/28/18 11/25/19 History Montelukast [Singulair] 10 mg PO HS 07/19/18 11/25/19 History Gabapentin [Neurontin] 300 mg PO TID #9 cap 12/06/18 11/25/19 Rx Aspirin EC [Ecotrin Low Dose] 81 mg PO DAILY 02/22/19 11/25/19 History Furosemide [Lasix] 20 mg PO BID 02/22/19 11/25/19 History Levothyroxine Sodium 137 mcg PO DAILY 11/10/19 11/25/19 History Ondansetron Odt [Zofran ODT] 8 mg PO BID PRN 11/10/19 11/25/19 History Pantoprazole [Protonix] 40 mg PO DAILY 11/10/19 11/25/19 History Potassium Chloride ER [K-Dur 10] 10 meq PO DAILY 11/10/19 11/25/19 History Triamterene/Hydrochlorothiazid 1 tab PO DAILY 11/10/19 11/25/19 History [Triamterene-Hctz 37.5-25 mg Tb] Umeclidinium Brm/Vilanterol Tr 1 puff INHALATION RT-DAILY 11/10/19 11/25/19 History [Anoro Ellipta 62.5-25 Mcg INH] HYDROcodone/APAP 10-325MG [[place] 1 each PO Q6H PRN tab 11/13/19 11/25/19 Rx 10-325] levETIRAcetam [Keppra] 1,000 mg PO Q12HR tab 11/13/19 11/25/19 Rx Diclofenac Sodium Gel [Voltaren 1 applic TOPICAL BID PRN 11/25/19 11/25/19 History Gel] Fluticasone Propionate [Flovent 2 puff INHALATION RT-BID 11/25/19 11/25/19 History Hfa 220 mcg] Nystatin [Nystop] 1 applic TOPICAL BID PRN 11/25/19 11/25/19 History Allergies Allergy/AdvReac Type Severity Reaction Status Date / Time adhesive Allergy Rash/Hives Verified 11/25/19 12:10 buspirone [From BuSpar] Allergy Itching Verified 11/25/19 12:10 divalproex sodium Allergy Rash/Hives Verified 11/25/19 12:10 [From Depakote] ibuprofen [From Motrin] Allergy Rash/Hives Verified 11/25/19 12:10 latex Allergy Rash/Hives Verified 11/25/19 12:10 Penicillins Allergy Rash/Hives Verified 11/25/19 12:10 topiramate [From Topamax] Allergy Swelling Verified 11/25/19 12:10 Physical Examination - Vital Signs Vital Signs: Vital Signs Temp Pulse Resp BP Pulse Ox 11/25/19 11:40 97.4 F L 64 16 107/74 98 Intake and Output 11/25/19 11/25/19 11/25/19 06:59 14:59 22:59 Other: Weight 89.5 kg On examination patient is a middle aged female, in no acute distress. She is alert and awake. She knows it is October 2019. She knows her date of , and the current president. Speech and language functions are normal. Attention span, concentration and fund of knowledge is borderline. Patient has slightly slow mentation. On cranial nerve exam. Pupils are round and reacting to light, visual stoll are full on confrontation, extraocular muscles intact with no nystagmus. Face is symmetric, tongue protrudes to midline. Palatal elevation and sensation normal. Hearing and shoulder shrug normal. On muscle strength testing there is no pronator drift and the strength is normal in arms and legs distally and proximally. Deep tendon reflexes are 1+ and plantars downgoing. Sensory touch is equal. No ataxia for [id number] testing. Tone and bulk of muscles normal. Gait deferred. No carotid bruit or murmur, patient has mild peripheral edema. Abdomen soft nontender, chest clear. Patient has mild proptosis. Results - Laboratory Findings CBC and BMP: 11/25/19 15:00 11/25/19 15:00 Abnormal Lab Findings: Abnormal Labs 11/25/19 15:00 Potassium 3.2 L BUN 18 H TSH 0.268 L Assessment and Plan Assessment: * 59-year-old female with previous history of seizure disorder, came with breakthrough seizures in the last few weeks. Patient states that she had 6 seizures in the last 1 month. * Dizziness, syncopal spells, unclear etiology. * History of gastric sleeve surgery 12/01/2018 Plan: * Agree with checking EEG to evaluate for any interictal epileptiform activity. * Continue telemetry monitoring to rule out arrhythmia. * Patient had a normal CTA of head and neck and 2-D echo recently therefore no need to repeat these tests. * Check orthostatics. Consider tilt table test. * Neurology coverage not available on the weekend. Dr. Boss will resume neurology care on Thursday.
[2019-11-25] MEDS: GABAPENTIN 300 MG CAP PO SCH ×2 (17:30→20:40)
[2019-11-25] MEDS: FUROSEMIDE 20 MG TAB PO SCH (17:30)
[2019-11-25] MEDS: HYDROcodone/APAP 10-325MG 1 EACH TAB PO PRN (19:26)
[2019-11-25] MEDS: levETIRAcetam 500 MG TAB PO SCH (20:40)
[2019-11-25] MEDS: MONTELUKAST 10 MG TAB PO SCH (20:40)
[2019-11-25] MEDS: FLUTICASONE 220 MCG INHALER INHALATION SCH (20:42)
[2019-11-26] MEDS: HYDROcodone/APAP 10-325MG 1 EACH TAB PO PRN ×3 (01:07→20:59)
[2019-11-26 02:22] LABS: Appearance,Urine Cloudy (Clear); Bacteria,Urine Occasional /hpf; Bilirubin,Urine Negative (Negative); Blood,Urine Negative (Negative); Calcium Oxalate Crystals,Urine Many /hpf; Color,Urine Yellow; Glucose,Urine (UA) Negative (Negative); Hyaline Casts,Urine 11 /lpf (0-2); Ketones,Urine Negative (Negative); Leukocyte Esterase,Urine Moderate (Negative); Mucus,Urine Many /hpf; Nitrite,Urine Negative (Negative); Protein,Urine Negative (Negative); RBC,Urine 3 /hpf (0-5); Specific Gravity,Urine 1.022 (1.001-1.035); Squamous Epithelial Cell,Urine 6 /hpf (0-4); Urobilinogen,Urine <2.0 mg/dL (<2.0); WBC,Urine 4 /hpf (0-5)
[2019-11-26 05:57] LABS: Basophils # (A) 0.1 k/uL (0-0.2); Basophils % (A) 1 %; Eosinophils # (A) 0.1 k/uL (0-0.7); Eosinophils % (A) 1 %; HCT 35.7 % (34.0-46.0); HGB 11.6 gm/dL (11.4-16.0); Lymphocytes # (A) 2.2 k/uL (1.0-4.8); Lymphocytes % (A) 30 %; MCH 30.5 pg (25.0-35.0); MCHC 32.4 g/dL (31.0-37.0); Mean Platelet Volume 7.9; Monocytes # (A) 0.4 k/uL (0-1.0); Monocytes % (A) 5 %; Neutrophils # (A) 4.4 k/uL (1.3-7.7); Neutrophils % (A) 60 %; Platelet Count 267 k/uL (150-450); WBC 7.3 k/uL (3.8-10.6)
[2019-11-26 06:11] LABS: ALT 22 U/L (4-34); AST 43 U/L (14-36); African American GFR (CKD) >90 (>60 ml/min/1.73 sqM); Albumin 3.4 g/dL (3.5-5.0); Alkaline Phosphatase 65 U/L (38-126); Anion Gap 5 mmol/L; Blood Urea Nitrogen 21 mg/dL (7-17); Calcium 9.1 mg/dL (8.4-10.2); Carbon Dioxide 30 mmol/L (22-30); Chloride 106 mmol/L (98-107); Glucose 98 mg/dL (74-99); Non-African American GFR(CKD) >90 (>60 ml/min/1.73 sqM); Potassium 3.6 mmol/L (3.5-5.1); Sodium 141 mmol/L (137-145); Total Bilirubin 0.6 mg/dL (0.2-1.3); Total Protein 5.8 g/dL (6.3-8.2)
[2019-11-26] MEDS: LEVOTHYROXINE 137 MCG TAB PO SCH (06:38)
[2019-11-26] MEDS: FUROSEMIDE 20 MG TAB PO SCH ×2 (06:38→16:01)
[2019-11-26] MEDS: FLUTICASONE 220 MCG INHALER INHALATION SCH ×2 (07:45→19:35)
[2019-11-26] MEDS: IPRATROPIUM 0.5 MG/2.5 ML NEBU INHALATION SCH ×4 (07:45→19:34)
[2019-11-26] MEDS: levETIRAcetam 500 MG TAB PO SCH ×2 (08:00→20:55)
[2019-11-26] MEDS: GABAPENTIN 300 MG CAP PO SCH ×3 (08:00→20:56)
[2019-11-26] MEDS: ASPIRIN 81 MG PO SCH (08:00)
[2019-11-26] MEDS: PANTOPRAZOLE 40 MG TABLET PO SCH (08:02)
[2019-11-26] MEDS: TRIAMTERENE-HCTZ 37.5-25MG 1 EACH TAB PO SCH (08:02)
[2019-11-26] MEDS: POTASSIUM CHLORIDE ER 10 MEQ TAB.ER.PRT PO SCH (08:02)
[2019-11-26] MEDS: LORATADINE 10 MG TAB PO SCH (08:02)
[2019-11-26] MEDS: FORMOTEROL FUMARATE 20 MCG/2 ML NEBU INHALATION SCH ×2 (10:46→19:34)
--- NOTE | 2019-11-26 11:05 | HP ---
HISTORY AND PHYSICAL 59-year-old female with a history of seizure disorder, previously discharged from the other hospital. She went home. She had 3 falls. Syncope where she had experienced spells, and unconsciousness and due to 3 episodes of passing out, I admitted her to the hospital for neurology recommendation. PAST MEDICAL HISTORY: Angina, dyslipidemia, seizures, hypertension, osteoarthritis, seizure disorder, sleep apnea, thyroid disorder. PAST SURGICAL HISTORY: Adenoidectomy, bariatric surgery, cholecystectomy, heart catheterization, hysterectomy, tonsillectomy. FAMILY HISTORY: Father with cancer. Sister with cancer of the stomach. Mother unsure. MEDICATIONS: Home medicines include she takes Claritin 10 mg daily, Antivert 25 b.i.d. singular 10 mg at night, Neurontin 300 t.i.d. Ecotrin 81 mg daily, Lasix 20 mg b.i.d., levothyroxine 137 mcg daily, Protonix 40 mg daily, K-Dur 10 mEq daily, Dyazide 1 tab daily, Anora Ellipta 1 puff daily, Anderson 10 q.6 hours, Keppra 1000 b.i.d., gel topically b.i.d., fluticasone daily, Nystop daily. PHYSICAL EXAM: Vital signs: Temp 97.4, pulse 64, respiratory 16 to 18, blood pressure 107/74, O2 98. She is a white female in no acute distress. Alert and oriented. She looks weak, disheveled on constitutional exam. Cardiovascular: Irregularly irregular rhythm. Lungs are clear. GI soft. Hematology: Some generalized edema from lymphedema. Labs are reviewed. Potassium 3.2, sodium 137. ASSESSMENT: 1. Syncope times three in the last 24 hours. 2. Seizure disorder. 3. Dizziness, syncopal spells, unclear. 4. History of gastric sleeve. Do an EEG. Possible adjust medications. Rule out any cardiac or neurologic issues and discharge home once cleared by Neurology. MMODL / IJN: [id number] /
--- NOTE | 2019-11-26 14:22 | P.CRDCN ---
History of Present Illness Consult date: 11/26/19 Requesting physician: Júnior Hancock Reason for Consult (text): tilt tabble test, arrhythmia Chief complaint: Syncope, dizziness History of present illness: History of present illness: This is a 59-year-old female patient of Dr. Alicea with past medical h istory of heart failure, hypertension, hyperlipidemia, seizure disorder, sleep apnea, developmentally disabled, morbid obesity status post gastric sleeve with weight loss of 169 pounds. Patient states that she has been having dizzy spells for a couple of years and has been taking meclizine with help some but she has been getting worse episodes. She states she is having them at any time. Is not when she just stands up or moves her head. She often is walking and has to hold onto the wall to support herself. She also complains of chest pain on the right side of her chest that has been going on for couple months. This can happen at rest or with activity. She states the chest pain was worse yesterday and she was feeling short of breath as well. She has a history of heart catheterization in [address] Alicea that revealed mild nonobstructive coronary artery disease involving the mid LAD. Normal left ventricular systolic function. Patient was hospitalized November 09 for dizziness and confusion and was worked up neurologically at that time. Echocardiogram on November 10 of this year revealed EF of 55-60% with mild concentric left hypertrophy, mild tricuspid regurgitation, mild pulmonary hypertension. In this admission, patient has been seen by neurology with concern for breakthrough seizures. Dizziness and syncopal episodes of unclear etiology. CTA of the head and neck were normal. Patient states the dizziness and chest pain are much improved at the time of evaluation. Orthostatics have been negative. Review Of Systems: Constitutional: No fever, no chills. Reports weakness. EENT: No headache. No blurred vision or double vision, no loss of vision. No loss of Hearing, reports dizziness. No nasal drainage or congestion. No epistaxis. No sore throat. Lungs: No shortness of breath, cough, no sputum production. No wheezing. Cardiovascular: No chest pain, no lower extremity edema. No palpitations. No paroxysmal nocturnal dyspnea. No orthopnea. Reports dizziness. Reports syncopal episodes. Abdominal: No abdominal pain. No nausea, vomiting. No diarrhea. No constipation. No bloody or tarry stools. No loss of appetite. Genitourinary: No dysuria, increased frequency, urgency. No urinary retention. Musculoskeletal: No myalgias. Reports muscle weakness, no gait dysfunction, no frequent falls. No back pain. No neck pain. Integumentary: No wounds, no lesions. No rash or pruritus. No unusual bruising. Neurologic: No aphasia. No facial droop. No headache. Psychiatric: No depression. No anxiety. No mood swings. Endocrine: No abnormal blood sugars. No weight change. No excessive sweating or thirst. Physical examination: Gen: This is a an obese 59-year-old female. Patient is resting bed and appears to be comfortable and in no acute distress. VS: Afebrile, heart rate 80, blood pressure 102/69, pulse ox 100% on room air. HEENT: Head is atraumatic, normocephalic. Pupils equal, round. Sclerae is anicteric. NECK: Supple. No JVD. No lymphadenopathy. No thyromegaly. LUNGS: Clear to auscultation. No wheezes or rhonchi. No intercostal retractions. HEART: Regular rate and rhythm. No murmur. ABDOMEN: Soft. Bowel sounds are present. No masses. No tenderness. EXTREMITIES: No pedal edema. No calf tenderness. NEUROLOGICAL: Patient is awake, alert and oriented x3. Cranial nerves 2 through 12 are grossly intact. Assessment: Syncopal episode of unclear etiology Orthostatics negative Chronic diastolic heart failure Hypertension Hyperlipidemia Seizure disorder Sleep apnea Morbid obesity status post gastric sleeve Plan: No need to repeat echocardiogram as patient had one done 2 weeks ago. Tilt table test will be ordered for Thursday Continue aspirin, Lasix, Maxzide Further recommendations to follow based upon clinical course Thank you kindly for this consultation Nurse practitioner note has been reviewed, I agree with documented findings and plan of care. Patient was seen and examined. Past Medical History Past Medical History: Chest Pain / Angina, Heart Failure, Hyperlipidemia, Hypertension, Osteoarthritis (OA), Pneumonia, Seizure Disorder, Skin Disorder, Sleep Apnea/CPAP/BIPAP, Thyroid Disorder Additional Past Medical History / Comment(s): LAST KNOWN SEIZURE a couple months ago. developementally disabled, restless leg syndrme, cervical and back pain with pain down bilateral legs, leg weakness, occasional numbness and tingling to bilateral hands and feet,cpap used currently, abdominal pain. (diarrhea)- right after eating, states has had recent falls, persistant itching-cause unknown, sees pain specialist for chronic pain (entire body) History of Any Multi-Drug Resistant Organisms: None Reported Past Surgical History: Adenoidectomy, Bariatric Surgery, Cholecystectomy, Heart Catheterization, Hysterectomy, Tonsillectomy Additional Past Surgical History / Comment(s): cervical surgery/cage sleeve gastrectomy 12-01-18 Past Anesthesia/Blood Transfusion Reactions: No Reported Reaction Additional Past Anesthesia/Blood Transfusion Reaction / Comment(s): states "was told by my sister's boyfriend that I had trouble breathing and almost during my neck surgery",no hx blood transfusion Date of Last Stent Placement:: 06/03/2014 Past Psychological History: Depression Additional Psychological History / Comment(s): Pt states she currently resides with her sister. She is mildly developmentally delayed. public guardian with sister as co-guardian Smoking Status: Never smoker Past Alcohol Use History: None Reported Past Drug Use History: None Reported - Past Family History Father Family Medical History: Cancer Additional Family Medical History / Comment(s): stomach Sister(s) Family Medical History: Cancer Additional Family Medical History / Comment(s): stomach CA Mother Family Medical History: No Reported History Additional Family Medical History / Comment(s): . Medications and Allergies Home Medications Medication Instructions Recorded Confirmed Type Loratadine [Claritin] 10 mg PO DAILY 06/28/18 11/25/19 History Meclizine [Antivert] 25 mg PO BID PRN 06/28/18 11/25/19 History Montelukast [Singulair] 10 mg PO HS 07/19/18 11/25/19 History Gabapentin [Neurontin] 300 mg PO TID #9 cap 12/06/18 11/25/19 Rx Aspirin EC [Ecotrin Low Dose] 81 mg PO DAILY 02/22/19 11/25/19 History Furosemide [Lasix] 20 mg PO BID 02/22/19 11/25/19 History Levothyroxine Sodium 137 mcg PO DAILY 11/10/19 11/25/19 History Ondansetron Odt [Zofran ODT] 8 mg PO BID PRN 11/10/19 11/25/19 History Pantoprazole [Protonix] 40 mg PO DAILY 11/10/19 11/25/19 History Potassium Chloride ER [K-Dur 10] 10 meq PO DAILY 11/10/19 11/25/19 History Triamterene/Hydrochlorothiazid 1 tab PO DAILY 11/10/19 11/25/19 History [Triamterene-Hctz 37.5-25 mg Tb] Umeclidinium Brm/Vilanterol Tr 1 puff INHALATION RT-DAILY 11/10/19 11/25/19 History [Anoro Ellipta 62.5-25 Mcg INH] HYDROcodone/APAP 10-325MG [Blevins 1 each PO Q6H PRN tab 11/13/19 11/25/19 Rx 10-325] levETIRAcetam [Keppra] 1,000 mg PO Q12HR tab 11/13/19 11/25/19 Rx Diclofenac Sodium Gel [Voltaren 1 applic TOPICAL BID PRN 11/25/19 11/25/19 History Gel] Fluticasone Propionate [Flovent 2 puff INHALATION RT-BID 11/25/19 11/25/19 History Hfa 220 mcg] Nystatin [Nystop] 1 applic TOPICAL BID PRN 11/25/19 11/25/19 History Allergies Allergy/AdvReac Type Severity Reaction Status Date / Time adhesive Allergy Rash/Hives Verified 11/25/19 12:10 buspirone [From BuSpar] Allergy Itching Verified 11/25/19 12:10 divalproex sodium Allergy Rash/Hives Verified 11/25/19 12:10 [From Depakote] ibuprofen [From Motrin] Allergy Rash/Hives Verified 11/25/19 12:10 latex Allergy Rash/Hives Verified 11/25/19 12:10 Penicillins Allergy Rash/Hives Verified 11/25/19 12:10 topiramate [From Topamax] Allergy Swelling Verified 11/25/19 12:10 Physical Exam Vitals: Vital Signs Temp Pulse Pulse Pulse Pulse Pulse Resp 11/26/19 08:13 16 11/26/19 08:12 97.9 F 62 16 11/26/19 07:56 80 11/26/19 07:46 80 11/26/19 04:22 97.5 F L 57 L 67 69 57 L 17 11/25/19 20:25 97.7 F 72 17 11/25/19 15:00 97.8 F 62 16 11/25/19 14:40 67 68 62 BP BP BP BP Pulse Ox 11/26/19 08:13 11/26/19 08:12 102/69 100 11/26/19 07:56 11/26/19 07:46 11/26/19 04:22 108/73 114/82 102/67 102/67 97 11/25/19 20:25 104/73 97 11/25/19 15:00 107/72 98 11/25/19 14:40 115/78 121/83 107/72 Intake and Output 11/25/19 11/26/19 11/26/19 22:59 06:59 14:59 Intake Total 740 Output Total 600 Balance 140 Intake: Intake, IV Titration 200 Amount Sodium Chloride 0.9% 1, 200 000 ml @ 50 mls/hr IV . Q20H BERTHA Rx#:[id number] Oral 540 Output: Urine 600 Other: # Voids 2 1 Results 11/26/19 05:36 11/26/19 05:36 Cardiac Enzymes 11/25/19 11/26/19 Range/Units 15:00 05:36 AST 30 43 H (14-36) U/L CBC 11/25/19 11/26/19 Range/Units 15:00 05:36 WBC 9.1 7.3 (3.8-10.6) k/uL RBC 4.46 3.80 (3.80-5.40) m/uL Hgb 13.2 11.6 (11.4-16.0) gm/dL Hct 42.2 35.7 (34.0-46.0) % Plt Count 305 267 (150-450) k/uL Comprehensive Metabolic Panel 11/25/19 11/26/19 Range/Units 15:00 05:36 Sodium 137 141 (137-145) mmol/L Potassium 3.2 L 3.6 (3.5-5.1) mmol/L Chloride 105 106 (98-107) mmol/L Carbon Dioxide 28 30 (22-30) mmol/L BUN 18 H 21 H (7-17) mg/dL Creatinine 0.63 0.62 (0.52-1.04) mg/dL Glucose 95 98 (74-99) mg/dL Calcium 9.7 9.1 (8.4-10.2) mg/dL AST 30 43 H (14-36) U/L ALT 22 22 (4-34) U/L Alkaline Phosphatase 81 65 (38-126) U/L Total Protein 6.8 5.8 L (6.3-8.2) g/dL Albumin 4.3 3.4 L (3.5-5.0) g/dL Current Medications Generic Name Dose Route Start Last Admin Trade Name Freq PRN Reason Stop Dose Admin Hydrocodone Bitart/Acetaminophen 1 each 11/25/19 14:17 11/26/19 01:07 Blevins 10 PO 1 each Q6H PRN Administration Pain Aspirin 81 mg 11/26/19 09:00 11/26/19 08:00 Aspirin PO 81 mg DAILY BERTHA Administration Diclofenac Sodium 2 gm 11/25/19 14:17 Voltaren Gel TOPICAL BID PRN Pain Fluticasone Propionate 2 puff 11/25/19 20:00 11/26/19 07:45 Flovent 220 Mcg Inhaler INHALATION 2 puff RT-BID BERTHA Administration Formoterol Fumarate 20 mcg 11/26/19 08:00 11/26/19 10:46 Perforomist INHALATION Not Given RT-BID BERTHA Furosemide 20 mg 11/25/19 17:30 11/26/19 06:38 Lasix PO 20 mg AC-BID BERTHA Administration Gabapentin 300 mg 11/25/19 16:00 11/26/19 08:00 Neurontin PO 300 mg TID BERTHA Administration Sodium Chloride 1,000 mls @ 50 mls/hr 11/25/19 14:30 11/25/19 15:17 Saline 0.9% IV 50 mls/hr .Q20H BERTHA Administration Ipratropium [place] 0.5 mg 11/26/19 08:00 11/26/19 11:09 Atrovent Nebulized INHALATION Not Given RT-QID BERTHA Levetiracetam 1,000 mg 11/25/19 21:00 11/26/19 08:00 Keppra PO 1,000 mg Q12HR BERTHA Administration Levothyroxine Sodium 137 mcg 11/26/19 06:30 11/26/19 06:38 Synthroid PO 137 mcg DAILY@0630 BERTHA Administration Loratadine 10 mg 11/26/19 09:00 11/26/19 08:02 Claritin PO 10 mg DAILY BERTHA Administration Meclizine HCl 25 mg 11/25/19 15:10 Antivert PO BID PRN Vertigo Montelukast Sodium 10 mg 11/25/19 21:00 11/25/19 20:40 Singulair PO 10 mg HS BERTHA Administration Ondansetron HCl 8 mg 11/25/19 15:10 Zofran Odt PO BID PRN Nausea Pantoprazole Sodium 40 mg 11/26/19 09:00 11/26/19 08:02 Protonix PO 40 mg DAILY BERTHA Administration Potassium Chloride 10 meq 11/26/19 09:00 11/26/19 08:02 K-Dur 10 PO 10 meq DAILY BERTHA Administration Triamterene/HCTZ 1 each 11/26/19 09:00 11/26/19 08:02 Maxzide-25 PO 1 each DAILY BERTHA Administration Intake and Output 11/25/19 11/26/19 11/26/19 22:59 06:59 14:59 Intake Total 740 Output Total 600 Balance 140 Intake: Intake, IV Titration 200 Amount Sodium Chloride 0.9% 1, 200 000 ml @ 50 mls/hr IV . Q20H BERTHA Rx#:[id number] Oral 540 Output: Urine 600 Other: # Voids 2 1 11/26/19 05:36 11/26/19 05:36
[2019-11-26] MEDS: SODIUM CHLORIDE 0.9% 1,000 ML IV SCH ×2 (14:59→15:01)
--- NOTE | 2019-11-26 17:23 | EEG ---
ELECTROENCEPHALOGRAM REPORT DATE OF PROCEDURE: 11/26/2019 ELECTROENCEPHALOGRAM (EEG) REPORT: TECHNIQUE: A routine 18 channel EEG was performed with video using the 10/20 electrode placement system. HISTORY: Patient admitted with syncope, reason for study seizure. OTHER MEDICAL HISTORY: Includes heart failure, hyperlipidemia, hypertension. CURRENT MEDICATIONS: Synthroid, Neurontin, Keppra, Lasix, aspirin and others. STUDY DURATION: 25 MINUTES. FINDINGS: Background: The background activity consisted of unsustained 7 to 8 hertz rhythmic waveforms with some intermixed delta range slowing. ACTIVATION: Hyperventilation: Not performed. Photic stimulation: No driving seen. Sleep: Drowsy. ABNORMALITIES: 1. Frequent runs of frontally predominant delta range slowing were seen with intermixed triphasic waves. 2. Intermittent diffuse 4-6 hertz theta range slowing was seen. Next please note that 1 channel of this EEG was dedicated to EKG that demonstrated a sinus rhythm. IMPRESSION: Abnormal EEG. The triphasic waves mentioned above are not epileptiform in nature. Triphasic waves can be seen in the setting of a metabolic encephalopathy. The frontally predominant delta range slowing as well as the diffuse theta range slowing mentioned above is not epileptiform in nature. In combination with the slow background, these findings indicate mild to moderate diffuse cerebral dysfunction as may be seen in a toxometabolic encephalopathy. No seizures were recorded. No epileptiform activity was present. These findings were called to the patient's nurse at 1700 hours on 11/26/2019. MMODL / IJN: [id number] /
[2019-11-26] MEDS: MONTELUKAST 10 MG TAB PO SCH (20:55)
--- NOTE | 2019-11-26 22:32 | PN ---
PROGRESS NOTE She is admitted for neurologic evaluation. She is negative for her orthostatic changes. Cardiovascular S1-S2. Lungs transmitted upper airway sounds. Hematology negative Homans. Psych: Fair mood and affect. Pulse 60 to 62. Respiratory rate 12-14. Cardiovascular S1, S2. Lungs clear. GI soft. Awaiting EEG and neurologic workup at this point. MMODL / IJN: [id number] /
[2019-11-27] MEDS: HYDROcodone/APAP 10-325MG 1 EACH TAB PO PRN ×2 (03:15→20:13)
[2019-11-27] MEDS: SODIUM CHLORIDE 0.9% 1,000 ML IV SCH (06:44)
[2019-11-27] MEDS: LEVOTHYROXINE 137 MCG TAB PO SCH (06:45)
[2019-11-27] MEDS: FUROSEMIDE 20 MG TAB PO SCH ×2 (06:45→17:45)
[2019-11-27] MEDS: IPRATROPIUM 0.5 MG/2.5 ML NEBU INHALATION SCH ×4 (07:35→19:49)
[2019-11-27] MEDS: FORMOTEROL FUMARATE 20 MCG/2 ML NEBU INHALATION SCH ×2 (07:35→19:49)
[2019-11-27] MEDS: FLUTICASONE 220 MCG INHALER INHALATION SCH ×2 (07:36→19:49)
[2019-11-27] MEDS: TRIAMTERENE-HCTZ 37.5-25MG 1 EACH TAB PO SCH (08:02)
[2019-11-27] MEDS: POTASSIUM CHLORIDE ER 10 MEQ TAB.ER.PRT PO SCH (08:02)
[2019-11-27] MEDS: GABAPENTIN 300 MG CAP PO SCH ×3 (08:02→21:04)
[2019-11-27] MEDS: levETIRAcetam 500 MG TAB PO SCH ×2 (08:02→21:04)
[2019-11-27] MEDS: LORATADINE 10 MG TAB PO SCH (08:02)
[2019-11-27] MEDS: PANTOPRAZOLE 40 MG TABLET PO SCH (08:02)
[2019-11-27] MEDS: ASPIRIN 81 MG PO SCH (08:02)
--- NOTE | 2019-11-27 10:18 | PN ---
PROGRESS NOTE Poly is a 59-year-old lady that is admitted to hospital with syncope and we have been consulted for the same. She is feeling better, has not had any further episodes of syncope. EXAM: Comfortable at rest. Vital signs are stable. There is no jugular venous distention. Chest exam reveals good air entry bilaterally. Heart exam reveals first and second heart sounds. No gallop. Exam of extremities did not reveal any edema. Peripheral pulses are felt. Labs show a hemoglobin of 11.6, platelet count is 267. Potassium is 3.6, creatinine is 0.6. ASSESSMENT: Syncope, rule out cardiac causes. Patient will have a tilt-table test tomorrow. If that looks normal, she will be discharged home and have cardiology followup. If it is abnormal, we will evaluate her further as needed. MMODL / IJN: [id number] /
--- NOTE | 2019-11-27 11:03 | PN ---
PROGRESS NOTE EEG showed rather toxic metabolic encephalopathy. She has syncope of unclear etiology, orthostatic negative; chronic diastolic heart failure, hypertension, dyslipidemia, seizure disorder, sleep apnea, morbid obesity. Cardiology saw her and ordered a tilt- table test to be ordered for Thursday. Continue aspirin, Lasix, Maxzide. Neurologically she appears stable. Cardiovascular S1, S2. Lungs are clear. ENDOCRINE: BMI is over 40. Psych: Poor mood and affect. ASSESSMENT: Dizziness, syncope, unclear etiology. Tilt test tomorrow. Continue with current medications for seizures. Home medicines will be continued. Prognosis guarded. MMODL / IJN: [id number] /
[2019-11-27] MEDS: MONTELUKAST 10 MG TAB PO SCH (21:04)
[2019-11-28] MEDS: SODIUM CHLORIDE 0.9% 1,000 ML IV SCH (02:40)
[2019-11-28] MEDS: HYDROcodone/APAP 10-325MG 1 EACH TAB PO PRN ×3 (02:43→19:45)
[2019-11-28] MEDS: LEVOTHYROXINE 137 MCG TAB PO SCH (06:12)
[2019-11-28] MEDS: FORMOTEROL FUMARATE 20 MCG/2 ML NEBU INHALATION SCH ×2 (07:28→18:14)
[2019-11-28] MEDS: IPRATROPIUM 0.5 MG/2.5 ML NEBU INHALATION SCH ×4 (07:28→18:14)
[2019-11-28] MEDS: FLUTICASONE 220 MCG INHALER INHALATION SCH ×2 (07:29→18:14)
[2019-11-28] MEDS: ASPIRIN 81 MG PO SCH (08:17)
[2019-11-28] MEDS: LORATADINE 10 MG TAB PO SCH (08:17)
[2019-11-28] MEDS: levETIRAcetam 500 MG TAB PO SCH ×2 (08:17→21:04)
[2019-11-28] MEDS: PANTOPRAZOLE 40 MG TABLET PO SCH (08:17)
[2019-11-28] MEDS: TRIAMTERENE-HCTZ 37.5-25MG 1 EACH TAB PO SCH (08:17)
[2019-11-28] MEDS: POTASSIUM CHLORIDE ER 10 MEQ TAB.ER.PRT PO SCH (08:17)
[2019-11-28] MEDS: FUROSEMIDE 20 MG TAB PO SCH (08:18)
[2019-11-28] MEDS: GABAPENTIN 300 MG CAP PO SCH ×3 (08:18→21:04)
[2019-11-28] MEDS ORDERED: SODIUM CHLORIDE 0.9% 500 ML 500 ML IV ONE (09:45)
--- NOTE | 2019-11-28 10:14 | P.PN ---
Subjective This is a pleasant 59-year-old female past medical history significant for hypertension, dyslipidemia, seizure disorder, obstructive sleep apnea, developmentally disabled, mild non-obstructive CAD and obesity. She follows in the office with Dr. Alicea. She is seen and examined sitting up in bed in no acute distress. She has had no further episodes of syncope since being admitted to the hospital. Telemetry tracings unremarkable. She does have some sinus bradycardia at night with history of sleep apnea. Blood pressure this morning 99/64 heart rate 49 afebrile maintaining oxygen saturation on room air. Currently maintained on aspirin 81 mg daily, Lasix 20 mg daily and Maxide 37.5/25 mg daily. GENERAL: Well-appearing, well-nourished and in no acute distress. NECK: Supple without JVD or thyromegaly. LUNGS: Breath sounds clear to auscultation bilaterally. Respiration equal and unlabored. No wheezes, rales or rhonchi. HEART: Regular rate and rhythm without murmurs, rubs or gallops. S1 and S2 heard. EXTREMITIES: Normal range of motion, no edema. No clubbing or cyanosis. Peripheral pulses intact. ASSESSMENT Syncope. This far no cardiac etiology noted for her syncopal episodes. Telemetry tracings have been unremarkable with no evidence of an acute arrhythmia and orthostatic vital signs are negative. Hypertension Dyslipidemia Obstructive sleep apnea Seizure disorder Obesity, BMI 30 History of mild nonobstructive coronary artery disease maintained on aspirin daily PLAN Discontinue Maxide. Proceed with tilt table test as previously ordered. Follow up with Dr. Alicea upon discharge. Nurse Practitioner note has been reviewed, I agree with a documented findings and plan of care. Patient was seen and examined. Objective - Vital Signs Vital signs: Vital Signs Temp 97.4 F L 11/28/19 08:32 Pulse 49 L 11/28/19 08:32 Resp 16 11/28/19 08:32 BP 99/64 11/28/19 08:32 Pulse Ox 100 11/28/19 08:32 Intake & Output 11/27/19 11/28/19 11/28/19 18:59 06:59 18:59 Intake Total 45 Output Total 300 Balance -255 Intake: Oral 45 Output: Urine 300 Other: # Voids 1 4 - Labs CBC & Chem 7: 11/26/19 05:36 11/26/19 05:36
[2019-11-28] MEDS ORDERED: NITROGLYCERIN SL TABS 0.4 MG TAB SUBLINGUAL ONE (10:41)
[2019-11-28 12:28] LABS: Cholesterol 184 mg/dL (<200); HDL Cholesterol 55 mg/dL (40-60); LDL Cholesterol,Calculated 86 mg/dL (0-99); Triglycerides 213 mg/dL (<150)
--- NOTE | 2019-11-28 12:57 | P.PCN ---
Preoperative Diagnosis: Diagnosis Syncope Referred by Dr. Júnior Hancock for tilt table test Twelve-lead ECG revealed shows sinus rhythm normal SD narrow QRS normal ST segments Tilt table test per protocol Baseline heart rate 54 beats a minute, Baseline blood pressure 108/69 mmHg Patient was tilted upright at an angle of 70 per protocol. She felt dizzy imm ediately upon standing up and her blood pressure dropped to 90/73 mmHg Rebounded back to the baseline level She had episodes where she would feel weak and lightheaded. This corresponded to blood pressures of 96 mmHg systolic At the end of the study she was placed supine heart rate and blood pressure were normal Impression Orthostatic hypotension Normal ECG
[2019-11-28] MEDS: ATORVASTATIN 40 MG TAB PO SCH (17:07)
--- NOTE | 2019-11-28 19:15 | P.PN ---
Subjective Progress Note Date: 11/28/19 Principal diagnosis: Orhtosatic hypotension Patient had tilt table test and was positive for orthostatic hypotension. It is documented for the tic tilt table test dad that the patient felt dizzy immediately upon standing him pressure dropped. At the end of the study she was placed supine heart rate and blood pressure were normal. Currently she is sitting it bed and states she is doing well. she denies feeling dizzy. Objective - Vital Signs Vital signs: Vital Signs Temp 97.8 F 11/28/19 15:00 Pulse 60 11/28/19 18:33 Resp 16 11/28/19 18:33 BP 111/76 11/28/19 15:00 Pulse Ox 99 11/28/19 15:00 Intake & Output 11/28/19 11/28/19 11/29/19 06:59 18:59 06:59 Intake Total 240 Output Total 475 Balance -235 Intake: Oral 240 Output: Urine 475 Other: # Voids 4 - Exam GENERAL: The patient is lying in bed and is not in acute distress. CHEST: The heart rate is regular rate rhythm. No murmurs to auscultation. No carotid bruit bilaterally----. LUNG: Clear to auscultation bilaterally no wheezing noted throughout. Not labored breathing. ABDOMEN/GI: Bowel sounds present in all 4 quadrants. No tenderness to palpation throughout. NEUROLOGICAL: Higher mental function: The patient is awake, alert, oriented to self, place and time. Patient is following simple commands. Attention span, concentration and fund of knowledge is borderline. Patient mentation seem seems slow. No aphasia and no neglect. Cranial nerves: The pupils are round, equal and reactive to light and accommodation. Visual stoll are full to confrontation throughout. Extraocular movement is intact no nystagmus is noted. Facial sensation is normal to touch throughout. The facial strength is normal throughout. Hearing is normal bilaterally to hand rub. Tongue is midline and moved [id number] without any difficulty. No dysarthria is noted. Shoulder shrug is normal bilaterally. Motor: The strength is 5 over 5 throughout. Normal tone and bulk. Cerebellum: Normal finger to nose heel to chin bilaterally. Sensation: Sensation is normal to touch throughout. Reflexes (right/left): 1+ throughout. Plantars are downgoing bilaterally. - Labs CBC & Chem 7: 11/26/19 05:36 11/26/19 05:36 Labs: Abnormal Lab Results - Last 24 Hours (Table) 11/28/19 Range/Units 12:02 Triglycerides 213 H (<150) mg/dL Assessment and Plan Assessment: 59-year-old female with previous history of seizure disorder, came with breakthrough seizure as in the last few weeks. Patient states that she had 6 seizures in the last 1 month. Dizziness, syncopal spells are due to orthostatic hypotension. Orthostatic hypotension History of gastric sleeve surgery on 12/01/2018. Plan: Patient had an EEG 11/26/19: Showed triphasic waves, I can be seen in the setting of metabolic encephalopathic. The frontal predominant delta range slowing as well as diffuse theta range slowing and mentioned in combination with a slow background are indicated mild to moderate diffuse herbal dysfunction as seen in toxic and metabolic to flip atrophy. There is no seizures were recorded. No ablative from activator present. Patient had a normal CT angiogram of the head and neck and 2-D echo recently therefore no need to repeat these tests. Telemetry tracing has been unremarkable with no evidence of acute arrhythmia and orthostatic vital signs are negative. Regarding her positive orthostatic hypotension from the tilt table test consider starting the patient on fludrocortisone 0.1 g daily and if patient continues to have episodes eking titrated to 0.1 mg twice a day. We will defer the management to the primary team. Regarding her history of seizures recommend that patient follow up with the neurology as an outpatient. Currently she is on Keppra 1 g every 12 hours. Edmar Boss MD Neuro-hospitalist Time with Patient: Greater than 30
[2019-11-28] MEDS: MONTELUKAST 10 MG TAB PO SCH (21:05)
[2019-11-29] MEDS: SODIUM CHLORIDE 0.9% 1,000 ML IV SCH (00:36)
--- NOTE | 2019-11-29 00:58 | PN ---
PROGRESS NOTE Orthostatic hypotension, seizure disorder, toxic . She was cleared by Neurology for discharge, Cardiology for discharge. She will be sent home in the morning. Maxzide has been discontinued. CARDIOVASCULAR: S1, S2. LUNGS: Clear. GI: Soft. HEMATOLOGY: Negative Homans. ASSESSMENT: 1. Orthostatic hypotension. test reviewed. 2. Diastolic heart failure. 3. Dyslipidemia. 4. Seizures. 5. Hypothyroidism. 6. Allergic rhinitis. Continue current treatments. Discharged home in the morning. MMODL / IJN: [id number] /
[2019-11-29] MEDS: HYDROcodone/APAP 10-325MG 1 EACH TAB PO PRN (01:37)
[2019-11-29 02:45] VITALS: RESP 18
[2019-11-29] MEDS: LEVOTHYROXINE 137 MCG TAB PO SCH (06:12)
[2019-11-29] MEDS: PANTOPRAZOLE 40 MG TABLET PO SCH (08:36)
[2019-11-29] MEDS: GABAPENTIN 300 MG CAP PO SCH (08:36)
[2019-11-29] MEDS: levETIRAcetam 500 MG TAB PO SCH (08:36)
[2019-11-29] MEDS: ASPIRIN 81 MG PO SCH (08:36)
[2019-11-29] MEDS: POTASSIUM CHLORIDE ER 10 MEQ TAB.ER.PRT PO SCH (08:36)
[2019-11-29] MEDS: ATORVASTATIN 40 MG TAB PO SCH (08:36)
[2019-11-29] MEDS: LORATADINE 10 MG TAB PO SCH (08:36)
[2019-11-29] MEDS: IPRATROPIUM 0.5 MG/2.5 ML NEBU INHALATION SCH ×2 (08:41→12:30)
[2019-11-29] MEDS: FORMOTEROL FUMARATE 20 MCG/2 ML NEBU INHALATION SCH (08:41)
[2019-11-29] MEDS: FLUTICASONE 220 MCG INHALER INHALATION SCH (08:41)
[2019-11-29] MEDS ORDERED: FUROSEMIDE 20 MG TAB PO SCH (09:00)
[2019-11-29 10:40] VITALS: BP 120/78; PULSE 57; TEMP 97.4
--- NOTE | 2019-11-29 13:54 | P.PN ---
Subjective This is a pleasant 59-year-old female past medical history significant for hypertension, dyslipidemia, seizure disorder, obstructive sleep apnea, developmentally disabled, mild non-obstructive CAD and obesity. She follows in the office with Dr. Alicea. She is seen and examined sitting up in bed in no acute distress. She underwent a tilt table test yesterday revealing orthostatic hypotension. She is seen and examined sitting up in bed in no acute distress. She denies symptoms of chest pain, shortness of breath, dizziness or palpit ations. Telemetry tracings have been unremarkable. Blood pressure 120/78 heart rate 57 afebrile maintaining oxygen saturation on room air. GENERAL: Well-appearing, well-nourished and in no acute distress. NECK: Supple without JVD or thyromegaly. LUNGS: Breath sounds clear to auscultation bilaterally. Respiration equal and unlabored. No wheezes, rales or rhonchi. HEART: Regular rate and rhythm without murmurs, rubs or gallops. S1 and S2 heard. EXTREMITIES: Normal range of motion, no edema. No clubbing or cyanosis. Peripheral pulses intact. ASSESSMENT Syncope. This far no cardiac etiology noted for her syncopal episodes. Telemetry tracings have been unremarkable with no evidence of an acute arrhythmia and orthostatic vital signs are negative. Hypertension Dyslipidemia Obstructive sleep apnea Seizure disorder Obesity, BMI 30 History of mild nonobstructive coronary artery disease maintained on aspirin daily PLAN Continue to hold Maxzide. Stable for discharge from a cardiac perspective on current medical regimen. We will continue to follow along as needed please follow-up with Dr. Alicea on discharge. Nurse Practitioner note has been reviewed, I agree with a documented findings and plan of care. Patient was seen and examined. Objective - Vital Signs Vital signs: Vital Signs Temp 97.4 F L 11/29/19 09:00 Pulse 57 L 11/29/19 09:00 Resp 18 11/29/19 09:00 BP 120/78 11/29/19 09:00 Pulse Ox 100 11/29/19 09:00 Intake & Output 11/28/19 11/29/19 11/29/19 18:59 06:59 18:59 Intake Total 240 540 480 Output Total 475 300 275 Balance -235 240 205 Intake: Oral 240 540 480 Output: Urine 475 300 275 Other: # Voids 2 - Labs CBC & Chem 7: 11/26/19 05:36 11/26/19 05:36
== END 2019-11-29 14:12 | disposition home or self-care (01) | DRG 312 ==
LOC: 3NCARDOBS 10:27 → OBSVTOIN 11-27 10:56
PROVIDERS: ADMIT Family Medicine; ATTEND Family Medicine
PROC: 4A02XFZ Measurement of Cardiac Rhythm, External Approach (ICD-10-PCS; principal; 2019-11-28 09:00)
PROC: 4A03XB1 Measurement of Arterial Pressure, Peripheral, External Approach (ICD-10-PCS; principal; 2019-11-28 09:00)
DX: I95.1 Orthostatic hypotension (principal); G92 Toxic encephalopathy; I50.32 Chronic diastolic (congestive) heart failure; E78.5 Hyperlipidemia, unspecified; E66.01 Morbid (severe) obesity due to excess calories; G40.909 Epilepsy, unspecified, not intractable, without status epilepticus; M19.90 Unspecified osteoarthritis, unspecified site; E03.9 Hypothyroidism, unspecified; J30.9 Allergic rhinitis, unspecified; I27.20 Pulmonary hypertension, unspecified; I25.10 Atherosclerotic heart disease of native coronary artery without angina pectoris; I11.0 Hypertensive heart disease with heart failure; G47.33 Obstructive sleep apnea (adult) (pediatric); G25.81 Restless legs syndrome; F32.9 Major depressive disorder, single episode, unspecified; Z68.30 Body mass index [BMI] 30.0-30.9, adult; Z79.51 Long term (current) use of inhaled steroids; Z79.82 Long term (current) use of aspirin; Z79.890 Hormone replacement therapy; Z79.899 Other long term (current) drug therapy; Z90.49 Acquired absence of other specified parts of digestive tract; Z90.89 Acquired absence of other organs; Z98.890 Other specified postprocedural states; Z90.710 Acquired absence of both cervix and uterus; Z98.84 Bariatric surgery status; Z80.0 Family history of malignant neoplasm of digestive organs; Z91.040 Latex allergy status; Z88.0 Allergy status to penicillin; Z88.8 Allergy status to other drugs, medicaments and biological substances; Z91.09 Other allergy status, other than to drugs and biological substances
CPT/HCPCS: 80053; 80061; 80177; 81001; 83735; 84439; 84443; 84484; 85025; 93660; 94640; 95819

== ENCOUNTER → 2019-12-12 | Outpatient (CLI) | payer MEDICARE, OTHER ==
--- NOTE | 2019-12-12 14:02 | P.HPBAR ---
Bariatric H&P - History & Physicial H&P Date: 12/12/19 History & Physicial: Visit/CC: Patient initial contact: Initial weight: 137.438 kg Initial weight in pounds: Height: Initial BMI: Last weight: Current weight: 201 Current weight in pounds: 195 Current BMI: [place] body weight (based on NIH guidelines): Excess body weight loss: The patient is a 59 year-old F who presents for Bariatric Assessment. Patient presents today for gastric sleeve follow-up. She's had some mild GERD. She is actually had a small weight gain. She denies any significant dysphagia. Past Medical History Past Medical History: Chest Pain / Angina, Heart Failure, Hyperlipidemia, Hypertension, Osteoarthritis (OA), Pneumonia, Seizure Disorder, Skin Disorder, Sleep Apnea/CPAP/BIPAP, Thyroid Disorder Additional Past Medical History / Comment(s): LAST KNOWN SEIZURE a couple months ago. developementally disabled, restless leg syndrme, cervical and back pain with pain down bilateral legs, leg weakness, occasional numbness and tingling to bilateral hands and feet,cpap used currently, abdominal pain. (diarrhea)- right after eating, states has had recent falls, persistant itching-cause unknown, sees pain specialist for chronic pain (entire body) History of Any Multi-Drug Resistant Organisms: None Reported Past Surgical History: Adenoidectomy, Bariatric Surgery, Cholecystectomy, Heart Catheterization, Hysterectomy, Tonsillectomy Additional Past Surgical History / Comment(s): cervical surgery/cage sleeve gastrectomy 12-01-18 Past Anesthesia/Blood Transfusion Reactions: No Reported Reaction Additional Past Anesthesia/Blood Transfusion Reaction / Comm: states "was told by my sister's boyfriend that I had trouble breathing and almost during my neck surgery",no hx blood transfusion Date of Last Stent Placement:: 06/03/2014 Past Psychological History: Depression Additional Psychological History / Comment(s): Pt states she currently resides with her sister. She is mildly developmentally delayed. public guardian with si ster as co-guardian Smoking Status: Never smoker Past Alcohol Use History: None Reported Past Drug Use History: None Reported - Past Family History Father Family Medical History: Cancer Additional Family Medical History / Comment(s): stomach Sister(s) Family Medical History: Cancer Additional Family Medical History / Comment(s): stomach CA Mother Family Medical History: No Reported History Additional Family Medical History / Comment(s): . Surgical - Exam - General well developed, well nourished, no distress - Eyes PERRL - ENT normal pinna - Neck no masses - Respiratory normal expansion - Cardiovascular Rhythm: regular - Abdomen Abdomen: soft, non tender Bariatric Assessment & Plan Plan: Status post sleeve inserted. Patient is minimal observed. Her dysphagia has improved. She'll follow-up in 4 weeks. Bariatric Checklist Checklist: Plan: Checklist: EGD: 1. Hiatal hernia: 2. H. Pylori: HgbA1c: Vitamin D: Smoking: Never smoker Primary care physician referral: PCP Júnior Hancock, Pain=, [employer] Psychiatry clearance: Cardiology clearance: Sleep study: Diet journal: VTE risk score: VTE risk level: Rehab needs at discharge:
[2019-12-12 15:16] VITALS: BMI 31.4
[2019-12-12 15:28] VITALS: BP 145/86; PULSE 56; TEMP 98.4
== END | disposition home or self-care (01) ==
LOC: BARWHC3 12:16
PROVIDERS: ATTEND Surgery
DX: Z48.815 Encounter for surgical aftercare following surgery on the digestive system (principal); E66.01 Morbid (severe) obesity due to excess calories; K21.9 Gastro-esophageal reflux disease without esophagitis; Z68.31 Body mass index [BMI] 31.0-31.9, adult; Z98.84 Bariatric surgery status; Z90.49 Acquired absence of other specified parts of digestive tract; Z90.710 Acquired absence of both cervix and uterus
CPT/HCPCS: 97803; G0463; 99211

== ENCOUNTER → 2020-01-09 | Outpatient (CLI) | payer MEDICARE, OTHER ==
[2020-01-09 13:09] VITALS: BP 135/90; PULSE 61; RESP 18; TEMP 98.7
--- NOTE | 2020-01-09 13:40 | P.HPBAR ---
Bariatric H&P - History & Physicial H&P Date: 01/09/20 History & Physicial: Visit/CC: follow up Patient initial contact: Initial weight: 137.438 kg Initial weight in pounds: 303.00 Height: 5 ft 7 in Initial BMI: Last weight: Current weight: 91.081 kg Current weight in pounds: Current BMI: [place] body weight (based on NIH guidelines): Excess body weight loss: The patient is a 59 year-old F who presents for Bariatric Assessment. Patient presents today for sleeve gastrectomy follow-up. She's had issues with balance. She also had some mild GERD. Past Medical History Past Medical History: Chest Pain / Angina, Heart Failure, Hyperlipidemia, Hypertension, Osteoarthritis (OA), Pneumonia, Seizure Disorder, Skin Disorder, Sleep Apnea/CPAP/BIPAP, Thyroid Disorder Additional Past Medical History / Comment(s): LAST KNOWN SEIZURE a couple months ago. developementally disabled, restless leg syndrme, cervical and back pain with pain down bilateral legs, leg weakness, occasional numbness and tingling to bilateral hands and feet,cpap used currently, abdominal pain. (diarrhea)- right after eating, states has had recent falls, persistant itching-cause unknown, sees pain specialist for chronic pain (entire body) History of Any Multi-Drug Resistant Organisms: None Reported Past Surgical History: Adenoidectomy, Bariatric Surgery, Cholecystectomy, Heart Catheterization, Hysterectomy, Tonsillectomy Additional Past Surgical History / Comment(s): cervical surgery/cage sleeve gastrectomy 8-11-12 Past Anesthesia/Blood Transfusion Reactions: No Reported Reaction Additional Past Anesthesia/Blood Transfusion Reaction / Comm: states "was told by my sister's boyfriend that I had trouble breathing and almost during my neck surgery",no hx blood transfusion Date of Last Stent Placement:: 06/03/2014 Past Psychological History: Depression Additional Psychological History / Comment(s): Pt states she currently resides with her sister. She is mildly developmentally delayed. 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 Past Drug Use History: None Reported - Past Family History Father Family Medical History: Cancer Additional Family Medical History / Comment(s): stomach Sister(s) Family Medical History: Cancer Additional Family Medical History / Comment(s): stomach CA Mother Family Medical History: No Reported History Additional Family Medical History / Comment(s): . Surgical - Exam Vital Signs Temp Pulse Resp BP Pulse Ox 98.7 F 61 18 135/90 100 01/09/20 12:58 01/09/20 12:58 01/09/20 12:58 01/09/20 12:58 01/09/20 12:58 - General well developed, well nourished, no distress - Eyes PERRL - ENT normal pinna - Neck no masses - Respiratory normal expansion - Cardiovascular Rhythm: regular - Abdomen Abdomen: soft, non tender Bariatric Assessment & Plan Plan: Status post sleeve gastrectomy. Patient converted minimal observed. She'll follow-up with her PCP regarding her balance. She'll follow-up in 4 weeks. He will do routine labs and check thiamine and other vitamin levels. Bariatric Checklist Checklist: Plan: Checklist: EGD: 1. Hiatal hernia: 2. H. Pylori: HgbA1c: Vitamin D: Smoking: Never smoker Primary care physician referral: PCP Barbara Carter=, [employer] Operator=[place] Psych[facility] clearance: Cardiology clearance: Sleep study: Diet journal: VTE risk score: VTE risk level: Rehab needs at discharge:
== END | disposition home or self-care (01) ==
LOC: BARWHC3 11:12
PROVIDERS: ATTEND Surgery
DX: Z48.815 Encounter for surgical aftercare following surgery on the digestive system (principal); Z98.84 Bariatric surgery status; Z90.49 Acquired absence of other specified parts of digestive tract
CPT/HCPCS: 99211

== ENCOUNTER → 2020-01-13 | Outpatient (CLI) | payer MEDICARE, OTHER ==
[2020-01-13 12:39] LABS: HCT 36.5 % (34.0-46.0); MCH 30.3 pg (25.0-35.0); MCHC 32.9 g/dL (31.0-37.0); Mean Platelet Volume 7.7; Platelet Count 230 k/uL (150-450); RBC 3.97 m/uL (3.80-5.40); RDW 12.9 % (11.5-15.5); WBC 5.8 k/uL (3.8-10.6)
[2020-01-13 19:25] LABS: African American GFR (CKD) 111.5 (60.0-200.0); Albumin 4.2 g/dL (3.80-4.90); Albumin/Globulin Ratio 2.63 (1.60-3.17); Anion Gap 8.3 mmol/L (4.00-12.00); BUN/Creat Ratio 17.14 Ratio (12.00-20.00); Calcium 9.5 mg/dL (8.7-10.3); Carbon Dioxide 27.7 mmol/L (21.6-31.8); Globulin 1.6 g/dL (1.6-3.3); Magnesium 1.9 mg/dL (1.5-2.4); Non-African American GFR(CKD) 96.2 (60.0-200.0); Phosphorus 4.2 mg/dL (2.4-5.1); Potassium 3.6 mmol/L (3.5-5.5); Total Bilirubin 0.7 mg/dL (0.2-1.2); Total Protein 5.8 g/dL (6.2-8.2)
[2020-01-13 19:42] LABS: Folate, Serum 23.2 ng/mL
== END | disposition home or self-care (01) ==
LOC: LABWHC1 10:57
PROVIDERS: ATTEND Surgery
DX: E66.01 Morbid (severe) obesity due to excess calories (principal); E44.0 Moderate protein-calorie malnutrition; E55.9 Vitamin D deficiency, unspecified
CPT/HCPCS: 36415; 80053; 82306; 82607; 82746; 83735; 84100; 84425; 84443; 85027

== ENCOUNTER 2020-01-28 10:40 | Observation (INO) | payer MEDICARE, OTHER ==
[2020-01-28] MEDS ORDERED: ASPIRIN 81 MG PO STA (11:04)
[2020-01-28] MEDS ORDERED: NITROGLYCERIN OINT 1 INCH/GM PACKET TOPICAL STA (11:04)
--- NOTE | 2020-01-28 11:09 | ED ---
General Adult HPI - General Chief complaint: Chest Pain Stated complaint: chest pain Time Seen by Provider: 01/28/20 10:45 Source: patient, RN notes reviewed, old records reviewed Mode of arrival: ambulatory Limitations: no limitations - History of Present Illness Initial comments: This is a 59-year-old female who states she has a past medical history s ignificant for congestive heart failure and high blood pressure. Patient states that last night she passed out 2 times. Patient states the company for her heart monitor called her and told to go to the emergency department. Patient states she also has some chest pain which is now just some chest tightness. Patient also states she was short of breath earlier but no longer. Patient denies any palpitations. Patient denies any recent fever chills or cough per patient denies abdominal pain patient denies nausea vomiting diarrhea. - Related Data Home Medications Medication Instructions Recorded Confirmed Loratadine [Claritin] 10 mg PO DAILY 06/28/18 01/09/20 Meclizine [Antivert] 25 mg PO BID PRN 06/28/18 01/09/20 Montelukast [Singulair] 10 mg PO HS 07/19/18 01/09/20 Aspirin EC [Ecotrin Low Dose] 81 mg PO DAILY 02/22/19 01/09/20 Levothyroxine Sodium 137 mcg PO DAILY 11/10/19 01/09/20 Ondansetron Odt [Zofran ODT] 8 mg PO BID PRN 11/10/19 01/09/20 Pantoprazole [Protonix] 40 mg PO DAILY 11/10/19 01/09/20 Potassium Chloride ER [K-Dur 10] 10 meq PO DAILY 11/10/19 01/09/20 Umeclidinium Brm/Vilanterol Tr 1 puff INHALATION RT-DAILY 11/10/19 01/09/20 [Anoro Ellipta 62.5-25 Mcg INH] Diclofenac Sodium Gel [Voltaren 1 applic TOPICAL BID PRN 11/25/19 01/09/20 Gel] Fluticasone Propionate [Flovent 2 puff INHALATION RT-BID 11/25/19 01/09/20 Hfa 220 mcg] Nystatin [Nystop] 1 applic TOPICAL BID PRN 11/25/19 01/09/20 Previous Rx's Medication Instructions Recorded Gabapentin [Neurontin] 300 mg PO TID #9 cap 12/06/18 HYDROcodone/APAP 10-325MG [[place] 1 each PO Q6H PRN tab 11/13/19 10-325] levETIRAcetam [Keppra] 1,000 mg PO Q12HR tab 11/13/19 Atorvastatin [Lipitor] 40 mg PO DAILY tab 11/28/19 Furosemide [Lasix] 20 mg PO DAILY tab 11/28/19 Ipratropium Nebulized [Atrovent 0.5 mg INHALATION RT-QID ml 11/28/19 Nebulized 0.2 MG/ML] Allergies Allergy/AdvReac Type Severity Reaction Status Date / Time adhesive Allergy Rash/Hives Verified 01/28/20 10:51 buspirone [From BuSpar] Allergy Itching Verified 01/28/20 10:51 divalproex sodium Allergy Rash/Hives Verified 01/28/20 10:51 [From Depakote] ibuprofen [From Motrin] Allergy Rash/Hives Verified 01/28/20 10:51 latex Allergy Rash/Hives Verified 01/28/20 10:51 Penicillins Allergy Rash/Hives Verified 01/28/20 10:51 topiramate [From Topamax] Allergy Swelling Verified 01/28/20 10:51 Review of Systems ROS Statement: Those systems with pertinent positive or pertinent negative responses have been documented in the HPI. ROS Other: All systems not noted in ROS Statement are negative. Past Medical History Past Medical History: Chest Pain / Angina, Heart Failure, Hyperlipidemia, Hypertension, Osteoarthritis (OA), Pneumonia, Seizure Disorder, Skin Disorder, Sleep Apnea/CPAP/BIPAP, Thyroid Disorder Additional Past Medical History / Comment(s): LAST KNOWN SEIZURE a couple months ago. developementally disabled, restless leg syndrme, cervical and back pain with pain down bilateral legs, leg weakness, occasional numbness and tingling to bilateral hands and feet,cpap used currently, abdominal pain. (diarrhea)- right after eating, states has had recent falls, persistant itching-cause unknown, sees pain specialist for chronic pain (entire body) History of Any Multi-Drug Resistant Organisms: None Reported Past Surgical History: Adenoidectomy, Bariatric Surgery, Cholecystectomy, Heart Catheterization, Hysterectomy, Tonsillectomy Additional Past Surgical History / Comment(s): cervical surgery/cage sleeve gastrectomy 12-01-18 Past Anesthesia/Blood Transfusion Reactions: No Reported Reaction Additional Past Anesthesia/Blood Transfusion Reaction / Comment(s): states "was told by my sister's boyfriend that I had trouble breathing and almost during my neck surgery",no hx blood transfusion Date of Last Stent Placement:: 06/03/2014 Past Psychological History: Depression Smoking Status: Never smoker Past Alcohol Use History: None Reported Past Drug Use History: None Reported - Past Family History Father Family Medical History: Cancer Additional Family Medical History / Comment(s): stomach Sister(s) Family Medical History: Cancer Additional Family Medical History / Comment(s): stomach CA Mother Family Medical History: No Reported History Additional Family Medical History / Comment(s): . General Exam - General Exam Comments Initial Comments: GENERAL: Patient is well-developed and well-nourished. Patient is nontoxic and well- hydrated and is in no acute distress. ENT: Neck is soft and supple. No significant lymphadenopathy is noted. Oropharynx is clear. Moist mucous membranes. Neck has full range of motion without eliciting any pain. EYES: The sclera were anicteric and conjunctiva were pink and moist. Extraocular movements were intact and pupils were equal round and reactive to light. Eyel ids were unremarkable. PULMONARY: Unlabored respirations. Good breath sounds bilaterally. No audible rales rhonchi or wheezing was noted. CARDIOVASCULAR: There is a regular rate and rhythm without any murmurs gallops or rubs. ABDOMEN: Soft and nontender with normal bowel sounds. SKIN: Skin is clear with no lesions or rashes and otherwise unremarkable. NEUROLOGIC: Patient is alert and oriented x3. Cranial nerves II through XII are grossly intact. Motor and sensory are also intact. Normal speech, volume and content. Symmetrical smile. MUSCULOSKELETAL: Normal extremities with adequate strength and full range of motion. LYMPHATICS: No significant lymphadenopathy is noted PSYCHIATRIC: Normal psychiatric evaluation. Limitations: no limitations Course Vital Signs 01/28/20 01/28/20 10:46 11:13 Temperature 98 F Pulse Rate 57 L 63 Respiratory 18 16 Rate Blood Pressure 119/79 126/86 O2 Sat by Pulse 99 99 Oximetry Medical Decision Making - Medical Decision Making EKG shows sinus bradycardia at 54 bpm GA interval 286 QRS is 90 QT interval 440 QTC is 417. Patient's EKG shows no ST segment elevation or depression. Chest x-ray showed no acute abnormality. I spoke with Dr. Hancock he agreed to admit the patient admitted the patient wrote admitting orders - Lab Data Result diagrams: 01/28/20 11:10 01/28/20 11:10 Lab Results 01/28/20 01/28/20 01/28/20 Range/Units 11:10 11:10 11:10 WBC 5.9 (3.8-10.6) k/uL RBC 4.32 (3.80-5.40) m/uL Hgb 12.7 (11.4-16.0) gm/dL Hct 39.5 (34.0-46.0) % MCV 91.5 (80.0-100.0) fL MCH 29.3 (25.0-35.0) pg MCHC 32.1 (31.0-37.0) g/dL RDW 12.9 (11.5-15.5) % Plt Count 242 (150-450) k/uL Neutrophils % 54 % Lymphocytes % 39 % Monocytes % 4 % Eosinophils % 2 % Basophils % 1 % Neutrophils # 3.2 (1.3-7.7) k/uL Lymphocytes # 2.3 (1.0-4.8) k/uL Monocytes # 0.2 (0-1.0) k/uL Eosinophils # 0.1 (0-0.7) k/uL Basophils # 0.0 (0-0.2) k/uL PT 10.7 (9.0-12.0) sec INR 1.0 (<1.2) APTT 26.2 (22.0-30.0) sec Sodium 141 (137-145) mmol/L Potassium 3.2 L (3.5-5.1) mmol/L Chloride 106 (98-107) mmol/L Carbon Dioxide 29 (22-30) mmol/L Anion Gap 6 mmol/L BUN 12 (7-17) mg/dL Creatinine 0.61 (0.52-1.04) mg/dL Est GFR (CKD-EPI)AfAm >90 (>60 ml/min/1.73 sqM) Est GFR (CKD-EPI)NonAf >90 (>60 ml/min/1.73 sqM) Glucose 98 (74-99) mg/dL Calcium 9.3 (8.4-10.2) mg/dL Magnesium 2.0 (1.6-2.3) mg/dL Total Bilirubin 0.7 (0.2-1.3) mg/dL AST 19 (14-36) U/L ALT 10 (4-34) U/L Alkaline Phosphatase 75 (38-126) U/L Troponin I (0.000-0.034) ng/mL NT-Pro-B Natriuret Pep pg/mL Total Protein 6.5 (6.3-8.2) g/dL Albumin 4.1 (3.5-5.0) g/dL 01/28/20 01/28/20 Range/Units 11:10 11:10 WBC (3.8-10.6) k/uL RBC (3.80-5.40) m/uL Hgb (11.4-16.0) gm/dL Hct (34.0-46.0) % MCV (80.0-100.0) fL MCH (25.0-35.0) pg MCHC (31.0-37.0) g/dL RDW (11.5-15.5) % Plt Count (150-450) k/uL Neutrophils % % Lymphocytes % % Monocytes % % Eosinophils % % Basophils % % Neutrophils # (1.3-7.7) k/uL Lymphocytes # (1.0-4.8) k/uL Monocytes # (0-1.0) k/uL Eosinophils # (0-0.7) k/uL Basophils # (0-0.2) k/uL PT (9.0-12.0) sec INR (<1.2) APTT (22.0-30.0) sec Sodium (137-145) mmol/L Potassium (3.5-5.1) mmol/L Chloride (98-107) mmol/L Carbon Dioxide (22-30) mmol/L Anion Gap mmol/L BUN (7-17) mg/dL Creatinine (0.52-1.04) mg/dL Est GFR (CKD-EPI)AfAm (>60 ml/min/1.73 sqM) Est GFR (CKD-EPI)NonAf (>60 ml/min/1.73 sqM) Glucose (74-99) mg/dL Calcium (8.4-10.2) mg/dL Magnesium (1.6-2.3) mg/dL Total Bilirubin (0.2-1.3) mg/dL AST (14-36) U/L ALT (4-34) U/L Alkaline Phosphatase (38-126) U/L Troponin I <0.012 (0.000-0.034) ng/mL NT-Pro-B Natriuret Pep 157 pg/mL Total Protein (6.3-8.2) g/dL Albumin (3.5-5.0) g/dL Disposition Clinical Impression: Chest pain, Syncope Disposition: ADMITTED IP TO THIS HOSP Referrals: Júnior Hancock MD [Primary Care Provider] - 1-2 days Time of Disposition: 12:14
[2020-01-28 11:25] LABS: Basophils % (A) 1 %; Eosinophils # (A) 0.1 k/uL (0-0.7); Eosinophils % (A) 2 %; HCT 39.5 % (34.0-46.0); HGB 12.7 gm/dL (11.4-16.0); Lymphocytes # (A) 2.3 k/uL (1.0-4.8); Lymphocytes % (A) 39 %; MCH 29.3 pg (25.0-35.0); MCHC 32.1 g/dL (31.0-37.0); MCV 91.5 fL (80.0-100.0); Mean Platelet Volume 7.7; Monocytes # (A) 0.2 k/uL (0-1.0); Monocytes % (A) 4 %; Neutrophils # (A) 3.2 k/uL (1.3-7.7); Neutrophils % (A) 54 %; Platelet Count 242 k/uL (150-450); RBC 4.32 m/uL (3.80-5.40); RDW 12.9 % (11.5-15.5); WBC 5.9 k/uL (3.8-10.6)
[2020-01-28 11:36] LABS: Partial Thromboplastin Time 26.2 sec (22.0-30.0); Prothrombin Time 10.7 sec (9.0-12.0)
[2020-01-28 11:39] LABS: ALT 10 U/L (4-34); AST 19 U/L (14-36); African American GFR (CKD) >90 (>60 ml/min/1.73 sqM); Albumin 4.1 g/dL (3.5-5.0); Alkaline Phosphatase 75 U/L (38-126); Anion Gap 6 mmol/L; Blood Urea Nitrogen 12 mg/dL (7-17); Calcium 9.3 mg/dL (8.4-10.2); Carbon Dioxide 29 mmol/L (22-30); Chloride 106 mmol/L (98-107); Glucose 98 mg/dL (74-99); Non-African American GFR(CKD) >90 (>60 ml/min/1.73 sqM); Potassium 3.2 mmol/L (3.5-5.1); Sodium 141 mmol/L (137-145); Total Bilirubin 0.7 mg/dL (0.2-1.3); Total Protein 6.5 g/dL (6.3-8.2)
--- NOTE | 2020-01-28 12:06 | XR ---
EXAMINATION TYPE: XR chest 2V DATE OF EXAM: 01/28/2020 COMPARISON: Prior chest x-ray 11/10/2019 HISTORY: Chest pain and arrhythmia TECHNIQUE: Frontal and lateral views of the chest are obtained. FINDINGS: There is no focal air space opacity, pleural effusion, or pneumothorax seen. The cardiac silhouette size is within normal limits. Loop recorder is present overlying the chest. Postop carey es are noted to the cervical spine, there are overlying cardiac leads. The osseous structures are int act. IMPRESSION: No acute cardiopulmonary process.
[2020-01-28] MEDS ORDERED: NITROGLYCERIN SL TABS 0.4 MG TAB SUBLINGUAL PRN (12:15)
[2020-01-28] MEDS ORDERED: POTASSIUM CHLORIDE ER 20 MEQ TAB.ER PO SCH (13:45)
--- NOTE | 2020-01-28 15:36 | P.CRDCN ---
History of Present Illness Consult date: 01/28/20 Requesting physician: Júnior Hancock Reason for Consult (text): chest pain, syncope Chief complaint: syncope History of present illness: This is a pleasant 59-year-old female patient of Dr. Vicente. She presented to the emergency department after having 2 syncopal episodes this morning after whi ch she was notified by [employer] to inquire how she was feeling and they recommended she go to the emergency department. Dr. Thorpe did receive a call from the company who stated the patient was having episodes of sinus bradycardia and that the patient was going to the emergency department. It is unclear as to whether or not she uses the patient activator by an prior to being called. She does have a history of heart failure, hypertension, hyperlipidemia, seizure disorder, sleep apnea, morbid obesity and is status post gastric sleeve with a weight loss of around 170 pounds, developmentally delayed. She has a history of recurrent dizzy spells and syncope as well as recurrence complaints of right- sided chest pain that is not related to activity with no clear relieving or aggravating factors. She has a history of heart catheterization in 2014 which showed normal LV systolic function and mild nonobstructive CAD involving the mid LAD. This morning she was getting up out of bed sitting on the side of the bed for about 10 minutes when she passed out. She has been getting episodes of dizziness as well. She did undergo a tilt table test during her previous admission in November that showed evidence of orthostatic hypotension. Since admission patient has been noted to be bradycardic with a heart rate as low as 47 but also normal heart rates in the 60s to 80s. Blood pressure has been stable. Laboratory values were reviewed and were unremarkable except for potassium of 3.2 which she is on supplementation for. Troponin was negative 1 and NT proBNP was unremarkable at 157. EKG on admission showed sinus bradycardia with a heart rate of 54 bpm. Upon examination, patient is resting comfortably sitting up in bed. She does have complaints of mild nausea but is eating a sandwich and some chips. She feels this is related to the Nitropaste that was applied in the emergency room as she's experienced this in the past. Past Medical History Past Medical History: Chest Pain / Angina, Heart Failure, Hyperlipidemia, Hypertension, Osteoarthritis (OA), Pneumonia, Seizure Disorder, Skin Disorder, Sleep Apnea/CPAP/BIPAP, Thyroid Disorder Additional Past Medical History / Comment(s): LAST KNOWN SEIZURE a couple months ago. developementally disabled, restless leg syndrme, cervical and back pain with pain down bilateral legs, leg weakness, occasional numbness and tingling to bilateral hands and feet,cpap used currently, abdominal pain. (diarrhea)- right after eating, states has had recent falls, persistant itching-cause unknown, sees pain specialist for chronic pain (entire body) History of Any Multi-Drug Resistant Organisms: None Reported Past Surgical History: Adenoidectomy, Bariatric Surgery, Cholecystectomy, Heart Catheterization, Hysterectomy, Tonsillectomy Additional Past Surgical History / Comment(s): cervical surgery/cage sleeve gastrectomy 12-01-18 Past Anesthesia/Blood Transfusion Reactions: No Reported Reaction Additional Past Anesthesia/Blood Transfusion Reaction / Comment(s): states "was told by my sister's boyfriend that I had trouble breathing and almost d uring my neck surgery",no hx blood transfusion Date of Last Stent Placement:: 06/03/2014 Past Psychological History: Depression Additional Psychological History / Comment(s): Pt states she currently resides with her sister. She is mildly developmentally delayed. 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 Past Drug Use History: None Reported - Past Family History Father Family Medical History: Cancer Additional Family Medical History / Comment(s): stomach Sister(s) Family Medical History: Cancer Additional Family Medical History / Comment(s): stomach CA Mother Family Medical History: No Reported History Additional Family Medical History / Comment(s): . Medications and Allergies Home Medications Medication Instructions Recorded Confirmed Type Loratadine [Claritin] 10 mg PO DAILY 06/28/18 01/28/20 History Meclizine [Antivert] 25 mg PO BID PRN 06/28/18 01/28/20 History Montelukast [Singulair] 10 mg PO HS 07/19/18 01/28/20 History Gabapentin [Neurontin] 300 mg PO TID #9 cap 12/06/18 01/28/20 Rx Aspirin EC [Ecotrin Low Dose] 81 mg PO DAILY 02/22/19 01/28/20 History Levothyroxine Sodium 137 mcg PO DAILY 11/10/19 01/28/20 History Ondansetron Odt [Zofran ODT] 8 mg PO BID PRN 11/10/19 01/28/20 History Pantoprazole [Protonix] 40 mg PO DAILY 11/10/19 01/28/20 History Potassium Chloride ER [K-Dur 10] 10 meq PO DAILY 11/10/19 01/28/20 History Umeclidinium Brm/Vilanterol Tr 1 puff INHALATION RT-DAILY 11/10/19 01/28/20 History [Anoro Ellipta 62.5-25 Mcg INH] HYDROcodone/APAP 10-325MG [[place] 1 each PO Q6H PRN tab 11/13/19 01/28/20 Rx 10-325] levETIRAcetam [Keppra] 1,000 mg PO Q12HR tab 11/13/19 01/28/20 Rx Diclofenac Sodium Gel [Voltaren 1 applic TOPICAL BID PRN 11/25/19 01/28/20 History Gel] Fluticasone Propionate [Flovent 2 puff INHALATION RT-BID 11/25/19 01/28/20 History Hfa 220 mcg] Nystatin [Nystop] 1 applic TOPICAL BID PRN 11/25/19 01/28/20 History Atorvastatin [Lipitor] 40 mg PO DAILY tab 11/28/19 01/28/20 Rx Furosemide [Lasix] 20 mg PO DAILY tab 11/28/19 01/28/20 Rx Ipratropium Nebulized [Atrovent 0.5 mg INHALATION RT-QID ml 11/28/19 01/28/20 Rx Nebulized 0.2 MG/ML] Allergies Allergy/AdvReac Type Severity Reaction Status Date / Time adhesive Allergy Rash/Hives Verified 01/28/20 12:33 buspirone [From BuSpar] Allergy Itching Verified 01/28/20 12:33 divalproex sodium Allergy Rash/Hives Verified 01/28/20 12:33 [From Depakote] ibuprofen [From Motrin] Allergy Rash/Hives Verified 01/28/20 12:33 latex Allergy Rash/Hives Verified 01/28/20 12:33 Penicillins Allergy Rash/Hives Verified 01/28/20 12:33 topiramate [From Topamax] Allergy Swelling Verified 01/28/20 12:33 Physical Exam Vitals: Vital Signs Temp Pulse Pulse Resp BP BP Pulse Ox 01/28/20 14:04 97.6 F 47 L 16 145/85 100 01/28/20 13:35 86 16 139/86 99 01/28/20 11:13 63 16 126/86 99 01/28/20 10:46 98 F 57 L 18 119/79 99 Intake and Output 01/27/20 01/28/20 01/28/20 22:59 06:59 14:59 Other: Weight 87.997 kg PHYSICAL EXAMINATION: This is a 59-year-old female in no apparent distress at the time of my examination. VITAL SIGNS: Blood pressure 145/85, heart rate 47, respirations 16, temp 87.6F. Patient is 100% on room air. HEENT: Head is atraumatic, normocephalic. Pupils are equal, round. Sclerae anicteric. Conjunctivae are clear. Mucous membranes of the mouth are moist. Neck is supple. There is no elevated jugular venous pressure. No carotid bruit is heard. CHEST EXAMINATION: Clear to auscultation bilaterally. No wheezes rales or rhonchi. Respirations even and nonlabored. HEART EXAMINATION: Heart regular, positive S1 and S2. No S3. No S4. No clicks, rubs or murmurs. ABDOMEN: Soft, obese, nontender. Bowel sounds are heard. No organomegaly noted. EXTREMITIES: 2+ peripheral pulses with no evidence of peripheral edema and no calf tenderness noted. NEUROLOGIC EXAMINATION: Patient is awake, alert and oriented x3. Results 01/28/20 11:10 01/28/20 11:10 Cardiac Enzymes 01/28/20 01/28/20 Range/Units 11:10 11:10 AST 19 (14-36) U/L Troponin I <0.012 (0.000-0.034) ng/mL Coagulation 01/28/20 Range/Units 11:10 PT 10.7 (9.0-12.0) sec APTT 26.2 (22.0-30.0) sec CBC 01/28/20 Range/Units 11:10 WBC 5.9 (3.8-10.6) k/uL RBC 4.32 (3.80-5.40) m/uL Hgb 12.7 (11.4-16.0) gm/dL Hct 39.5 (34.0-46.0) % Plt Count 242 (150-450) k/uL Comprehensive Metabolic Panel 01/28/20 Range/Units 11:10 Sodium 141 (137-145) mmol/L Potassium 3.2 L (3.5-5.1) mmol/L Chloride 106 (98-107) mmol/L Carbon Dioxide 29 (22-30) mmol/L BUN 12 (7-17) mg/dL Creatinine 0.61 (0.52-1.04) mg/dL Glucose 98 (74-99) mg/dL Calcium 9.3 (8.4-10.2) mg/dL AST 19 (14-36) U/L ALT 10 (4-34) U/L Alkaline Phosphatase 75 (38-126) U/L Total Protein 6.5 (6.3-8.2) g/dL Albumin 4.1 (3.5-5.0) g/dL Current Medications Generic Name Dose Route Start Last Admin Trade Name Freq PRN Reason Stop Dose Admin Aspirin 325 mg 01/29/20 09:00 Aspirin 325 Mg Tab PO DAILY BERTHA Nitroglycerin 0.4 mg 01/28/20 12:15 Nitroglycerin Sl Tabs 0.4 Mg Tab SUBLINGUAL Q5M PRN Chest Pain Nitroglycerin 1 inch 01/28/20 18:00 Nitroglycerin Oint 1 Inch/Gm Packet TOPICAL Q6HR BERTHA Potassium Chloride 20 meq 01/28/20 13:45 01/28/20 14:50 Potassium Chloride Er 20 Meq Tab.Er PO 20 meq DAILY BERTHA Administration Intake and Output 01/27/20 01/28/20 01/28/20 22:59 06:59 14:59 Other: Weight 87.997 kg Patient Weight 01/29/20 06:59 Weight 87.997 kg 01/28/20 11:10 01/28/20 11:10 EKG Interpretations (text) Sinus bradycardia Assessment and Plan Assessment: #1 syncope 2, patient is currently wearing an event monitor and she was called by the company and advised to come to the emergency department, these recordings are not available to us at this time #2 sinus bradycardia, TSH was normal last month #3 hypertension #4 hyperlipidemia #5 mild CAD involving the LAD #6 atypical chest pain Plan: From cardiology's perspective, we will continue to monitor the patient. There is been no evidence of heart block or pauses. Patient does have a history of orthostatic hypotension as seen on tilt table testing. We will continue to follow the patient required further recommendations accordingly. MESS COOK note has been reviewed, I agree with a documented findings and plan of care. Patient was seen and examined.
[2020-01-28] MEDS ORDERED: DICLOFENAC SODIUM GEL 100 GM TUBE TOPICAL PRN (17:32)
[2020-01-28] MEDS ORDERED: NYSTATIN 100,000 UNIT/GM POWD 15 GM TOPICAL PRN (17:32)
[2020-01-28] MEDS ORDERED: ONDANSETRON ODT 8 MG TAB.RAPDIS PO PRN (17:32)
[2020-01-28] MEDS ORDERED: MECLIZINE 25 MG TAB PO PRN (17:32)
[2020-01-28] MEDS: NITROGLYCERIN OINT 1 INCH/GM PACKET TOPICAL SCH (18:44)
[2020-01-28] MEDS: FLUTICASONE 220 MCG INHALER INHALATION SCH (20:11)
[2020-01-28] MEDS: IPRATROPIUM 0.5 MG/2.5 ML NEBU INHALATION SCH (20:11)
[2020-01-28] MEDS: MONTELUKAST 10 MG TAB PO SCH (21:36)
[2020-01-28] MEDS: GABAPENTIN 300 MG CAP PO SCH (21:36)
[2020-01-28] MEDS: HYDROcodone/APAP 10-325MG 1 EACH TAB PO PRN (21:37)
[2020-01-28] MEDS: levETIRAcetam 500 MG TAB PO SCH (21:38)
--- NOTE | 2020-01-28 23:52 | HP ---
HISTORY AND PHYSICAL This 59-year-old white female came to the hospital with some syncope at home x2. Called by her monitor department who watches her monitor and told her to come to the emergency room. She came today for cardiac recommendations due to syncope x2, possibly due to arrhythmias and was seen on the monitor. She has a history of heart failure, hypertension, dyslipidemia, seizure disorder, sleep apnea, morbid obesity, post gastric sleeve for weight loss about 170 pounds, developmentally delayed, heart catheterization 2014 with no significant blockage. Troponins have been negative so far. BNP is negative. EKG showed sinus Adi, heart rate at 54. MEDICINES: Please see list. PAST SURGICAL HISTORY: adenoidectomy, bariatric surgery, cholecystectomy, heart catheterization, hysterectomy, tonsillectomy. MEDICATIONS: See list. PHYSICAL EXAMINATION: Temperature 97 to 98, pulse 50s to 60s, respiratory rate 16-18. Blood pressure 119 to 120s over 60 to 70s, O2 100% to 100%. Cardiovascular S1-S2. Lungs transmitted upper airway sounds. Hematology negative Homans. Psych: Fair mood and affect. Abdomen soft nontender. Neurologic: Cranial nerves are intact. LABORATORY DATA: Labs reviewed. Potassium is 3.2. White count is normal. Sodium is normal. Hemoglobin normal. ASSESSMENT: 1. Syncope. She is wearing an event monitor. She was called by the company, advised to come to the emergency room. We have to get the recordings. Await for Cardiology recommendations. 2. Sinus bradycardia. 3. Hypertension. 4. Dyslipidemia. 5. Mild coronary artery disease. 6. Atypical chest pain. She is going to be monitored by the marine drafter. Get monitor for the monitor room. Check for heart block or pauses. Possibly rule out orthostatic hypotension. Prognosis guarded. Await for Cardiology recommendation. MMODL / IJN: [id number] /
[2020-01-29] MEDS: NITROGLYCERIN OINT 1 INCH/GM PACKET TOPICAL SCH ×2 (01:47→06:39)
[2020-01-29 02:56] LABS: Cholesterol 123 mg/dL (<200); HDL Cholesterol 52 mg/dL (40-60); LDL Cholesterol,Calculated 47 mg/dL (0-99); Triglycerides 121 mg/dL (<150)
[2020-01-29] MEDS: HYDROcodone/APAP 10-325MG 1 EACH TAB PO PRN ×2 (03:59→13:25)
[2020-01-29] MEDS: LEVOTHYROXINE 137 MCG TAB PO SCH (06:39)
[2020-01-29] MEDS: PANTOPRAZOLE 40 MG TABLET PO SCH (06:39)
[2020-01-29] MEDS: FORMOTEROL FUMARATE 20 MCG/2 ML NEBU INHALATION SCH ×2 (07:58→20:34)
[2020-01-29] MEDS: FLUTICASONE 220 MCG INHALER INHALATION SCH ×2 (07:58→20:35)
[2020-01-29] MEDS: IPRATROPIUM 0.5 MG/2.5 ML NEBU INHALATION SCH ×4 (07:58→20:34)
[2020-01-29] MEDS ORDERED: IPRATROPIUM 0.5 MG/2.5 ML NEBU INHALATION SCH (08:00)
[2020-01-29] MEDS: GABAPENTIN 300 MG CAP PO SCH ×3 (08:31→21:02)
[2020-01-29] MEDS: ASPIRIN 81 MG PO SCH (08:31)
[2020-01-29] MEDS: levETIRAcetam 500 MG TAB PO SCH ×2 (08:31→21:02)
[2020-01-29] MEDS: FUROSEMIDE 20 MG TAB PO SCH (08:32)
[2020-01-29] MEDS: ATORVASTATIN 40 MG TAB PO SCH (08:32)
[2020-01-29] MEDS: POTASSIUM CHLORIDE ER 10 MEQ TAB.ER.PRT PO SCH (08:32)
[2020-01-29] MEDS: LORATADINE 10 MG TAB PO SCH (08:32)
[2020-01-29] MEDS ORDERED: ASPIRIN 325 MG TAB PO SCH (09:00)
[2020-01-29 09:37] LABS: African American GFR (CKD) >90 (>60 ml/min/1.73 sqM); Anion Gap 3 mmol/L; Blood Urea Nitrogen 14 mg/dL (7-17); Calcium 9.4 mg/dL (8.4-10.2); Carbon Dioxide 33 mmol/L (22-30); Chloride 105 mmol/L (98-107); Glucose 89 mg/dL (74-99); Non-African American GFR(CKD) >90 (>60 ml/min/1.73 sqM); Potassium 3.7 mmol/L (3.5-5.1); Sodium 141 mmol/L (137-145)
--- NOTE | 2020-01-29 09:50 | P.PN ---
Subjective Progress Note Date: 01/29/20 This is a pleasant 59-year-old female patient of Dr. Vicente. She presented to the emergency department after having 2 syncopal episodes this morning after which she was notified by [employer] to inquire how she was feeling and they recommended she go to the emergency department. Dr. Thorpe did receive a call from the company who stated the patient was having episodes of sinus bradycardia and that the patient was going to the emergency department. It is unclear as to whether or not she uses the patient activator by an prior to being called. She does have a history of heart failure, hypertension, hyperlipidemia, seizure disorder, sleep apnea, morbid obesity and is status post gastric sleeve with a weight loss of around 170 pounds, developmentally delayed. She has a history of recurrent dizzy spells and syncope as well as recurrence complaints of right- sided chest pain that is not related to activity with no clear relieving or aggravating factors. She has a history of heart catheterization in 2014 which showed normal LV systolic function and mild nonobstructive CAD involving the mid LAD. This morning she was getting up out of bed sitting on the side of the bed for about 10 minutes when she passed out. She has been getting episodes of dizziness as well. She did undergo a tilt table test during her previous admission in November that showed evidence of orthostatic hypotension. Since admission patient has been noted to be bradycardic with a heart rate as low as 47 but also normal heart rates in the 60s to 80s. Blood pressure has been stable. Laboratory values were reviewed and were unremarkable except for potassium of 3.2 which she is on supplementation for. Troponin was negative 1 and NT proBNP was unremarkable at 157. EKG on admission showed sinus bradycardia with a heart rate of 54 bpm. Upon examination, patient is resting comfortably sitting up in bed. She does have complaints of mild nausea but is eating a sandwich and some chips. She feels this is related to the Nitropaste that was applied in the emergency room as she's experienced this in the past. 01/29/2020 The patient was seen and examined this morning resting comfortably in bed. She's had no further complaints of syncope. She's had no significant bradycardia. She does complain of a headache and chest pressure through the night but seems better after removing Nitropaste. Troponins were negative 3. Objective - Vital Signs Vital signs: Vital Signs Temp 97.9 F 01/29/20 08:05 Pulse 52 L 01/29/20 08:21 Resp 16 01/29/20 09:00 BP 120/78 01/29/20 08:05 Pulse Ox 97 01/29/20 08:05 Intake & Output 01/28/20 01/29/20 01/29/20 18:59 06:59 18:59 Intake Total 200 Balance 200 Weight 87.997 kg Intake: Oral 200 Other: Voiding Method Bedside Commode # Voids 2 - Exam PHYSICAL EXAMINATION: HEENT: Head is atraumatic, normocephalic. Pupils equal, round. Neck is supple. There is no elevated jugular venous pressure. HEART EXAMINATION: Heart sounds regular, S1 and S2 normal. No murmur or gallop heard. CHEST EXAMINATION: Lungs are clear to auscultatio. No chest wall tenderness is noted on palpation or with deep breathing. ABDOMEN: Soft, nontender. Bowel sounds are heard. No organomegaly noted. EXTREMITIES: 2+ peripheral pulses with no evidence of peripheral edema and no calf tenderness noted. NEUROLOGIC patient is awake, alert and oriented x3. . - Labs CBC & Chem 7: 01/28/20 11:10 01/29/20 08:22 Labs: Abnormal Lab Results - Last 24 Hours (Table) 01/28/20 01/29/20 Range/Units 11:10 08:22 Potassium 3.2 L (3.5-5.1) mmol/L Carbon Dioxide 33 H (22-30) mmol/L Assessment and Plan Assessment: #1 syncope 2, patient is currently wearing an event monitor and she was called by the company and advised to come to the emergency department, this was after patient used the patient activator and the rhythm reported to us with sinus bradycardia with no significant pauses #2 sinus bradycardia, TSH was normal last month #3 hypertension with known orthostatic hypotension #4 hyperlipidemia #5 mild CAD involving the LAD #6 atypical chest pain Plan: From cardiology's perspective, we will continue to monitor the patient. There is been no evidence of heart block or pauses. Patient does have a history of orthostatic hypotension as seen on tilt table testing. From our standpoint patient may be discharged home today and follow up with Dr. Vicente as an o utpatient. She will need to resume event monitor at home. CATERING SALES MANAGER note has been reviewed, I agree with a documented findings and plan of care. Patient was seen and examined.
[2020-01-29] MEDS ORDERED: SODIUM CHLORIDE 0.9% 500 ML 500 ML IV ONE (15:41)
--- NOTE | 2020-01-29 17:09 | CT ---
EXAMINATION TYPE: CT brain wo con DATE OF EXAM: 01/29/2020 COMPARISON: 11/10/2019 HISTORY: Weakness and visual disturbance CT DLP: 1180.9 mGycm Automated exposure control for dose reduction was used. Ventricles have normal size. There is no mass effect nor midline shift. There is no sign of intracran ial hemorrhage. There is mild cerebral atrophy. The calvarium is intact. There is no evidence of cere bral edema. IMPRESSION: Cerebral atrophy. No acute intracranial abnormality. No change.
[2020-01-29] MEDS: MONTELUKAST 10 MG TAB PO SCH (21:02)
[2020-01-30 04:49] VITALS: RESP 16
--- NOTE | 2020-01-30 04:53 | PN ---
PROGRESS NOTE She has some dizziness today and syncope. Cardiology saw her today and we ordered orthostatic hypotension because we are not sure exactly why she has been dizzy and passing out at home. No significant bradycardia per Cardiology. She thinks the headache and chest pressure might go away after removing nitro paste. Troponins were negative per Cardiology. Temperature 97.9, pulse 52, respiratory rate 16 to 18, blood pressure 120/78, O2 of 97. HEENT: Head normocephalic, atraumatic. Pupils equal, round, reactive. HEART: S1, S2. LUNGS: Are clear. ABDOMEN: Is soft. EXTREMITIES: No cyanosis, clubbing, edema. She looks sleepy and weak. ASSESSMENT: 1. She has syncope x2. 2. Sinus bradycardia. 3. Hypertension. 4. Dyslipidemia. 5. Mild coronary artery disease. 6. Atypical chest pain. Cardiology is going to monitor her. She has a history of orthostatic hypotension. She may need midodrine or something to keep her blood pressure up. CT scan of the brain will be done. Neurologic consultation for dizziness and lightheadedness will be done and syncope prior to discharge summary. CT of the head is ordered. MMODL / IJN: [id number] /
[2020-01-30] MEDS: PANTOPRAZOLE 40 MG TABLET PO SCH (06:26)
[2020-01-30] MEDS: LEVOTHYROXINE 137 MCG TAB PO SCH (06:26)
--- NOTE | 2020-01-30 08:26 | P.CNNES ---
History of Present Illness Consult date: 01/30/20 Requesting physician: Júnior Hancock Reason for Consult: history seizure with current episode of syncope History of Present Illness: This is a 59-year-old right-handed woman with medical history of seizure disorder, some cognitive slowing, recurrent syncopal episodes, orthostatic hypotension, HTN, congestive heart failure, hyperlipidemia, sleep apnea, morbid obesity status post gastric that presented to the emergency department on 01/28/2020 at 10:40 AM after having 2 episodes of passing out. Per patient on 01/27/2020 around 8 or 9 PM she was going to bed and then all of a sudden she started having some right-sided chest pain that was radiating down to the right hand. His also was feeling cold as well as hot. She was feeling nauseous. Then that she said that she had the an episode of loss of consciousness that lasted for 10 minutes. She lives with her sister and she was told that she did not have any jerking episodes of any of her extremities. She denies any tongue bite or shortness of the tongue. Denies any urinary or bowel incontinence. She hasn't been missing her Keppra medication. After waking up she felt somewhat slow. Then the next day and in the morning of 01/28/2020 she had this similar presentation but this time she was awakened up from bed taken the sheets off and then she started having some chest pain she was having some nausea feeling cold and hot then she passed out another for another 10 minutes. She's also been having episodes of dizziness as well the last 3 days. She describes the dizziness as the room is spinning. She denies of any ringing in the ears or hearing loss. The patient the has a heart monitor and the company called her and informed her to go the emergency department. It is documented that on the heart monitor she also had bradycardia as well. Not sure how low. She did state that she had some chest pain and some chest tightness as well as. She was short of breath. She denies of the any fever, chills or cough. Denies of any abdominal pain. She denies being on the fludrocortisone at home and she was discharged from last visit. She is not sure why not. He denies of any focal weakness, any numbness. Any slurring in his speech. She just recently followed up with Dr. Kasper and his office clinic for her seizures. Patient workup in the hospital consisted of: Initial blood pressure was 119/79, heart rate of 57, respiratory rate was 18. The nurse in the hospital she had episodes where her heart rate was 47 and that was in the in the afternoon of 10:30 of 2019. She also had an episode of blood pressure of an 87/52. Orthostatic vitals: Blood pressure of 111/71 with the heart rate of the 62, sitting of blood pressure of 131/83 with the heart rate of 67 and standing of 131/84 with the standing of 64. EKG was reported as sinus bradycardia. Ventricular rate of 54. Cannot rule out anterior infarct, age undetermined. Abnormal EKG. Troponin has been less than 0.012. CT of the head was done on 01/29/2020 and was reported as cerebral atrophy. No acute intracranial abnormality. No change. Personally reviewed the CT of the head and I will see any acute ischemia or hemorrhage. There is no encephalomalacia that significantly appreciable. The patient does have mild frontal atrophy bilaterally. Of note the patient was evaluated by presented by myself as well as Dr. Topete in October 2019 (mid and Late October) 14 the dizziness and confusion. Regarding the dizziness confusion or loss of balance patient had MRI of the brain and it was negative for stroke. She had stroke workup. 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 Also slightly hypoplastic A1 segment left JAYY. She was seen by Dr. Topete the end of October for recurrent syncopal episodes. It was recommended for the patient to be on Keppra 1 g twice a day. She had an EEG and was reported as triphasics were seen as well as frontal predominant delta range slowing as well as diffuse theta slowing were seen. Moderate diffuse cerebral dysfunction as may be seen in toxic metabolic encephalopathy. There is no seizure recorded. There is no ablative from activity present. She had that a tilt table test on 11/28/2019 and that patient the was positive for orthostatic hypotension. It was documented on the tilt table to the patient became very dizzy medially upon standing and her blood pressure dropped. At the end of the study she was placed supine heart rate and blood pressure were normal. As recommended for the patient to be on fludrocortisone 0.1 g daily and if the patient continues to hav e the further episodes to increase it to twice a day. Review of Systems Review of system: The 12 point system was reviewed and apparent positive and negative per HPI. Past Medical History Past Medical History: Chest Pain / Angina, Heart Failure, Hyperlipidemia, Hypertension, Osteoarthritis (OA), Pneumonia, Seizure Disorder, Skin Disorder, Sleep Apnea/CPAP/BIPAP, Thyroid Disorder Additional Past Medical History / Comment(s): LAST KNOWN SEIZURE a couple months ago. developementally disabled, restless leg syndrme, cervical and back pain with pain down bilateral legs, leg weakness, occasional numbness and tingling to bilateral hands and feet,cpap used currently, abdominal pain. (diarrhea)- right after eating, states has had recent falls, persistant itching-cause unknown, sees pain specialist for chronic pain (entire body) History of Any Multi-Drug Resistant Organisms: None Reported Past Surgical History: Adenoidectomy, Bariatric Surgery, Cholecystectomy, Heart Catheterization, Hysterectomy, Tonsillectomy Additional Past Surgical History / Comment(s): cervical surgery/cage sleeve gastrectomy 12-01-18 Past Anesthesia/Blood Transfusion Reactions: No Reported Reaction Additional Past Anesthesia/Blood Transfusion Reaction / Comment(s): states "was told by my sister's boyfriend that I had trouble breathing and almost during my neck surgery",no hx blood transfusion Date of Last Stent Placement:: 06/03/2014 Past Psychological History: Depression Additional Psychological History / Comment(s): Pt states she currently resides with her sister. She is mildly developmentally delayed. 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 Past Drug Use History: None Reported - Past Family History Father Family Medical History: Cancer Additional Family Medical History / Comment(s): stomach Sister(s) Family Medical History: Cancer Additional Family Medical History / Comment(s): stomach CA Mother Family Medical History: No Reported History Additional Family Medical History / Comment(s): . Medications and Allergies Home Medications Medication Instructions Recorded Confirmed Type Loratadine [Claritin] 10 mg PO DAILY 06/28/18 01/28/20 History Meclizine [Antivert] 25 mg PO BID PRN 06/28/18 01/28/20 History Montelukast [Singulair] 10 mg PO HS 07/19/18 01/28/20 History Gabapentin [Neurontin] 300 mg PO TID #9 cap 12/06/18 01/28/20 Rx Aspirin EC [Ecotrin Low Dose] 81 mg PO DAILY 02/22/19 01/28/20 History Levothyroxine Sodium 137 mcg PO DAILY 11/10/19 01/28/20 History Ondansetron Odt [Zofran ODT] 8 mg PO BID PRN 11/10/19 01/28/20 History Pantoprazole [Protonix] 40 mg PO DAILY 11/10/19 01/28/20 History Potassium Chloride ER [K-Dur 10] 10 meq PO DAILY 11/10/19 01/28/20 History Umeclidinium Brm/Vilanterol Tr 1 puff INHALATION RT-DAILY 11/10/19 01/28/20 History [Anoro Ellipta 62.5-25 Mcg INH] HYDROcodone/APAP 10-325MG [[place] 1 each PO Q6H PRN tab 11/13/19 01/28/20 Rx 10-325] levETIRAcetam [Keppra] 1,000 mg PO Q12HR tab 11/13/19 01/28/20 Rx Diclofenac Sodium Gel [Voltaren 1 applic TOPICAL BID PRN 11/25/19 01/28/20 History Gel] Fluticasone Propionate [Flovent 2 puff INHALATION RT-BID 11/25/19 01/28/20 History Hfa 220 mcg] Nystatin [Nystop] 1 applic TOPICAL BID PRN 11/25/19 01/28/20 History Atorvastatin [Lipitor] 40 mg PO DAILY tab 11/28/19 01/28/20 Rx Furosemide [Lasix] 20 mg PO DAILY tab 11/28/19 01/28/20 Rx Ipratropium Nebulized [Atrovent 0.5 mg INHALATION RT-QID ml 11/28/19 01/28/20 Rx Nebulized 0.2 MG/ML] Allergies Allergy/AdvReac Type Severity Reaction Status Date / Time adhesive Allergy Rash/Hives Verified 01/28/20 12:33 buspirone [From BuSpar] Allergy Itching Verified 01/28/20 12:33 divalproex sodium Allergy Rash/Hives Verified 01/28/20 12:33 [From Depakote] ibuprofen [From Motrin] Allergy Rash/Hives Verified 01/28/20 12:33 latex Allergy Rash/Hives Verified 01/28/20 12:33 Penicillins Allergy Rash/Hives Verified 01/28/20 12:33 topiramate [From Topamax] Allergy Swelling Verified 01/28/20 12:33 Physical Examination - Vital Signs Vital Signs: Vital Signs Temp Pulse Pulse Pulse Pulse Pulse Resp 01/30/20 03:00 97.6 F 58 L 16 01/29/20 21:00 98 F 67 64 62 18 01/29/20 20:46 60 01/29/20 20:45 60 01/29/20 20:35 60 01/29/20 15:30 98.1 F 60 16 01/29/20 13:18 55 L 62 52 L 01/29/20 11:58 55 L 01/29/20 11:48 55 L 01/29/20 09:00 16 01/29/20 08:21 52 L 01/29/20 08:10 52 L 01/29/20 08:05 97.9 F 55 L 16 01/29/20 07:59 52 L BP BP BP BP Pulse Ox 01/30/20 03:00 112/71 96 01/29/20 21:00 131/83 131/84 111/71 99 01/29/20 20:46 01/29/20 20:45 01/29/20 20:35 95 01/29/20 15:30 105/70 98 01/29/20 13:18 130/85 125/79 103/60 01/29/20 11:58 01/29/20 11:48 01/29/20 09:00 01/29/20 08:21 01/29/20 08:10 01/29/20 08:05 120/78 97 01/29/20 07:59 100 Intake and Output 01/29/20 01/30/20 01/30/20 22:59 06:59 14:59 Intake Total 500 Output Total 60 Balance 440 Intake: IV 500 Sodium Chloride 0.9% 500 500 ml 500 ml @ 999 mls/hr IV .Q31M ONE Rx#:[id number] Output: Emesis 60 Other: Voiding Method Bedside Commode Bedside Commode # Voids 2 2 GENERAL: The patient is lying in bed and is not in acute distress. CHEST: The heart rate is regular rate rhythm. No murmurs to auscultation. LUNG: Clear to auscultation bilaterally no wheezing noted throughout. Not labored breathing. ABDOMEN/GI: Bowel sounds present in all 4 quadrants. No tenderness to palpation throughout. NEUROLOGICAL: Higher mental function: The patient is awake, alert, oriented to self, place and time. Patient is somewhat slow to respond or follow commands (and that has been same since last exam). Patient is following commands. No aphasia and no neglect. Cranial nerves: The pupils are round, equal and reactive to light and accommodation. Visual stoll are full to confrontation throughout. Extraocular movement is intact no nystagmus is noted. Facial sensation is normal to touch throughout. The facial strength is normal throughout. Hearing is normal bilaterally to hand rub. Tongue is midline and moved [id number] without any difficulty. No dysarthria is noted. Shoulder shrug is normal bilaterally. Motor: Gait is normal (uses cane since chronic lower back pain). The strength is 4+ in bilateral hand costumer assistant and I felt like there is some effort related. Otherwise 5 over 5 throughout. Normal tone and bulk. Cerebellum: Normal finger to nose bilaterally. Sensation: Sensation is normal to touch throughout. Reflexes (right/left): 2+ throughout. Plantars are downgoing bilaterally. Results Lipid profile: Triglyceride 121, cholesterol 123, LDL 47 and HDL 52. TSH: 3.80. Coagulation study: PT is 10.7, INR 1.0 and PTT of 26.2. - Laboratory Findings CBC and BMP: 01/28/20 11:10 01/29/20 08:22 Abnormal Lab Findings: Abnormal Labs 01/28/20 01/29/20 11:10 08:22 Potassium 3.2 L Carbon Dioxide 33 H Assessment and Plan Assessment: This is a 59-year-old woman with history of multiple medical problems including seizures order, multiple syncopal episodes, orthostatic hypotension presented emergency department for 2 syncopal episodes. She is wearing a event monitor and she was called by the company and I advised her to come to the emergency department. In the hospital she had episodes of bradycardia as low as in the 40s as well as episode of hypotension. Two syncopal episodes (Had Bradycardia and episode of hypotension) Orthostatic hypotension Seizure disorder Mild cognitive slowing Hypertension Congestive heart failure Hyperlipidemia Plan: Her syncopal episodes are highly unlikely seizures. They seem more because of the patient's bradycardia, episodes of hypotension as well as a recent diagnosis of orthostatic hypotension can have a role as well. We will get a routine EEG to rule out any epileptiform or active seizures. Patient to continue taking Keppra 1 g twice a day. Recommend repeating orthostatic with heart rate. Cardiology is on board Recommend Midodrine, start with 2.5mg mg tid and to avoid 4 hours before night time (to avoid supine hypertension). The patient does not want fludrocortisone since the one of the side effects it causes weight gain. Continue on meclizine 25 mg twice a day as needed ordered by the primary team. For secondary stroke prophylaxis she is on 81 mg daily and Lipitor 40 mg daily and that is to be continued. Upon discharge the patient needs to follow-up with her neurologist as outpatient (Dr. Kasper) in 1-2 weeks. Thank for the consult. Edmar Boss M.D. Neuro-hospitalist Time with Patient: Greater than 30
[2020-01-30] MEDS: HYDROcodone/APAP 10-325MG 1 EACH TAB PO PRN (08:33)
[2020-01-30] MEDS: LORATADINE 10 MG TAB PO SCH (08:33)
[2020-01-30] MEDS: ATORVASTATIN 40 MG TAB PO SCH (08:33)
[2020-01-30] MEDS: levETIRAcetam 500 MG TAB PO SCH (08:33)
[2020-01-30] MEDS: ASPIRIN 81 MG PO SCH (08:33)
[2020-01-30] MEDS: POTASSIUM CHLORIDE ER 10 MEQ TAB.ER.PRT PO SCH (08:33)
[2020-01-30] MEDS: GABAPENTIN 300 MG CAP PO SCH ×2 (08:33→16:48)
[2020-01-30] MEDS: FUROSEMIDE 20 MG TAB PO SCH (08:33)
[2020-01-30] MEDS: FLUTICASONE 220 MCG INHALER INHALATION SCH (09:35)
[2020-01-30] MEDS: IPRATROPIUM 0.5 MG/2.5 ML NEBU INHALATION SCH ×3 (09:35→16:27)
[2020-01-30] MEDS: FORMOTEROL FUMARATE 20 MCG/2 ML NEBU INHALATION SCH (09:35)
--- NOTE | 2020-01-30 10:02 | P.PN ---
Subjective Progress Note Date: 01/30/20 This is a pleasant 59-year-old female patient of Dr. Vicente. She presented to the emergency department after having 2 syncopal episodes this morning after which she was notified by [employer] to inquire how she was feeling and they recommended she go to the emergency department. Dr. Thorpe did receive a call from the company who stated the patient was having episodes of sinus bradycardia and that the patient was going to the emergency department. It is unclear as to whether or not she uses the patient activator by an prior to being called. She does have a history of heart failure, hypertension, hyperlipidemia, seizure disorder, sleep apnea, morbid obesity and is status post gastric sleeve with a weight loss of around 170 pounds, developmentally delayed. She has a history of recurrent dizzy spells and syncope as well as recurrence complaints of right- sided chest pain that is not related to activity with no clear relieving or aggravating factors. She has a history of heart catheterization in 2014 which showed normal LV systolic function and mild nonobstructive CAD involving the mid LAD. This morning she was getting up out of bed sitting on the side of the bed for about 10 minutes when she passed out. She has been getting episodes of dizziness as well. She did undergo a tilt table test during her previous admission in November that showed evidence of orthostatic hypotension. Since admission patient has been noted to be bradycardic with a heart rate as low as 47 but also normal heart rates in the 60s to 80s. Blood pressure has been stable. Laboratory values were reviewed and were unremarkable except for potassium of 3.2 which she is on supplementation for. Troponin was negative 1 and NT proBNP was unremarkable at 157. EKG on admission showed sinus bradycardia with a heart rate of 54 bpm. 01/30/2020 Patient was seen and examined this morning, resting comfortably. Orthostatic blood pressure was obtained, 130/78 lying, 142/80 sitting, 142/80 standing, heart rate in the 50s, afebrile. 97% on room air. Objective - Vital Signs Vital signs: Vital Signs Temp 97.9 F 01/30/20 07:49 Pulse 56 L 01/30/20 09:44 Resp 16 01/30/20 07:49 BP 130/79 01/30/20 07:49 Pulse Ox 97 01/30/20 07:49 Intake & Output 1001/30/20 01/30/20 18:59 06:59 18:59 Intake Total 800 Output Total 60 Balance 740 Intake: IV 500 Sodium Chloride 0.9% 500 500 ml 500 ml @ 999 mls/hr IV .Q31M ONE Rx#:[id number] Oral 300 Output: Emesis 60 Other: Voiding Method Bedside Commode Bedside Commode Bedside Commode # Voids 1 2 2 - Exam PHYSICAL EXAMINATION: HEENT: Head is atraumatic, normocephalic. Pupils equal, round. Neck is supple. There is no elevated jugular venous pressure. HEART EXAMINATION: Heart sounds regular, S1 and S2 normal. No murmur or gallop heard. CHEST EXAMINATION: Lungs are clear to auscultatio. No chest wall tenderness is noted on palpation or with deep breathing. ABDOMEN: Soft, nontender. Bowel sounds are heard. No organomegaly noted. EXTREMITIES: 2+ peripheral pulses with no evidence of peripheral edema and no calf tenderness noted. NEUROLOGIC patient is awake, alert and oriented x3. - Labs CBC & Chem 7: 01/28/20 11:10 01/29/20 08:22 Assessment and Plan Plan: Assessment and plan: #1 syncope 2, patient is currently wearing an event monitor and she was called by the company and advised to come to the emergency department, this was after patient used the patient activator and the rhythm reported to us with sinus bradycardia with no significant pauses #2 sinus bradycardia, TSH was normal last month #3 hypertension with known orthostatic hypotension, no significant orthostasis heard #4 hyperlipidemia #5 mild CAD involving the LAD #6 atypical chest pain Plan From cardiology's perspective, no significant heart block or pauses have been noted on the monitor. No orthostasis. Patient may be able to be discharged home from our perspective to follow-up with Dr. Vicente in the office. Resume her event monitor at home. DNP note has been reviewed, I agree with a documented findings and plan of care. Patient was seen and examined.
[2020-01-30] MEDS: MIDODRINE 5 MG TAB PO SCH ×2 (13:36→16:48)
[2020-01-30 15:18] VITALS: BP 122/79; TEMP 98.6
--- NOTE | 2020-01-30 16:00 | EEG ---
ELECTROENCEPHALOGRAM REPORT CLINICAL HISTORY: This is a 59-year-old woman with a history of seizure and orthostatic hypotension who presented to the emergency department on 01/28/2020 for recurrent episodes of syncope. RELEVANT MEDICATION: Keppra. EEG TYPE: A routine 21-channel EEG was performed with video using the 10/20 electrode placement system. DESCRIPTION: Only wakefulness is obtained. During wakefulness, there is a posterior-dominant rhythm of low to moderate voltage of 8.5 to 9.5 hertz that is reactive. There was no physiological stage II sleep seen. There are anterior to posterior lags over bilateral hemisphere with triphasic morphology. There are frequent 1-2 Hz generalized rhythmic delta activity with frontal predominance (GRDA). INTERICTAL AND ICTAL: None. ACTIVATION PROCEDURE: Photic stimulation did not evoke a posterior-driving response. Hyperventilation was not performed because of the patient's clinical history. CLINICAL INTERPRETATION: This is an abnormal awake routine EEG. The generalized rhythmic delta activity and the triphasic waves seen consisted of mild to moderate encephalopathy. The triphasic waves can be seen in toxic metabolic encephalopathy. There is no focal slowing. There are no epileptiform discharges or seizure activity seen during the study. Clinical correlation is recommended. MMODL / IJN: [id number] / BELEN
[2020-01-30 16:29] VITALS: PULSE 64
--- NOTE | 2020-01-31 03:51 | DS ---
DISCHARGE SUMMARY A 59-year-old white female who came in orthostatic hypotension, syncope, diagnosed with orthostatic hypotension. Neurology and Cardiology saw her. Ruled out seizures. Home medicines were adjusted for her to add midodrine 2.5 a.c. t.i.d., for which she will go home on as well as some nitro sublingual p.r.n. for chest pain, Antivert 25 b.i.d. for vertigo, Claritin 10 mg daily, Singulair 10 mg daily, Neurontin 300 t.i.d. for neuropathy, potassium 10 mEq daily, Protonix 40 mg daily, Zofran p.r.n. 8 mg b.i.d., levothyroxine 135 mcg daily, Anoro 62.5/25 one puff daily, Keppra 1000 b.i.d. [place] 10/325 q.6 hours, nystatin topically b.i.d. for rash, Voltaren gel topically b.i.d. for pain, Flovent HFA 220 puffs b.i.d., Atrovent nebulizer q.i.d., Lasix 20 mg daily, atorvastatin 40 mg daily. CONDITION: Stable. PROGNOSIS: Guarded. AMBULATE: As tolerated. Follow up in Dr. Hancock's office in a week. MMKAMILLAL / WILLIAMN: [id number] /
== END 2020-01-30 19:26 ==
LOC: EC 10:40 → 3NCARDOBS 12:16
PROVIDERS: ADMIT Family Medicine; ATTEND Family Medicine
DX: R07.89 Other chest pain (principal); R55 Syncope and collapse; I11.0 Hypertensive heart disease with heart failure; I50.9 Heart failure, unspecified; I25.10 Atherosclerotic heart disease of native coronary artery without angina pectoris; E78.5 Hyperlipidemia, unspecified; I95.1 Orthostatic hypotension; A08.8 Other specified intestinal infections; M19.90 Unspecified osteoarthritis, unspecified site; Z87.01 Personal history of pneumonia (recurrent); G40.909 Epilepsy, unspecified, not intractable, without status epilepticus; E07.9 Disorder of thyroid, unspecified; F81.81 Disorder of written expression; G47.30 Sleep apnea, unspecified; Z99.89 Dependence on other enabling machines and devices; F79 Unspecified intellectual disabilities; G89.29 Other chronic pain; G25.81 Restless legs syndrome; M54.2 Cervicalgia; M54.9 Dorsalgia, unspecified; M79.605 Pain in left leg; M79.604 Pain in right leg; Z91.81 History of falling; L29.9 Pruritus, unspecified; Z98.84 Bariatric surgery status; F32.9 Major depressive disorder, single episode, unspecified; Z80.0 Family history of malignant neoplasm of digestive organs; R00.1 Bradycardia, unspecified; G31.9 Degenerative disease of nervous system, unspecified; G93.89 Other specified disorders of brain; Z90.710 Acquired absence of both cervix and uterus; Z79.82 Long term (current) use of aspirin; Z90.49 Acquired absence of other specified parts of digestive tract; Z98.890 Other specified postprocedural states; Z79.890 Hormone replacement therapy; Z79.899 Other long term (current) drug therapy; Z79.891 Long term (current) use of opiate analgesic; Z88.6 Allergy status to analgesic agent; Z91.040 Latex allergy status; Z88.0 Allergy status to penicillin; Z88.8 Allergy status to other drugs, medicaments and biological substances; Z91.09 Other allergy status, other than to drugs and biological substances
CPT/HCPCS: 93005 ×2; 99285; 36415; 94640 ×6; 94760; 95819; 83880; 80061; 80053; 80048; 84443; 83735; 84484; 85025; 85610; 85730; 83036; 71046; 70450; G0378 ×3

== ENCOUNTER → 2020-02-13 | Outpatient (CLI) | payer MEDICARE, OTHER ==
[2020-02-13 13:01] VITALS: BP 142/88; PULSE 67; RESP 18; TEMP 98.8; BMI 30.6
--- NOTE | 2020-02-13 13:17 | P.HPBAR ---
Bariatric H&P - History & Physicial H&P Date: 02/13/20 History & Physicial: Visit/CC: f/u sleeve 12/11/18 Patient initial contact: Initial weight: 137.438 kg Initial weight in pounds: 303.00 Height: 5 ft 7 in Initial BMI: 47.4 Last weight: Current weight: 88.587 kg Current weight in pounds: 195.30 Current BMI: 30.6 [place] body weight (based on NIH guidelines): 61.235 kg Excess body weight loss: 64.1% The patient is a 59 year-old F who presents for Bariatric Assessment. Presents today for sleeve gastrectomy follow-up. Patient has had some minimal GERD. She feels well otherwise. She's lost approximately 90 pounds. Past Medical History Past Medical History: Chest Pain / Angina, Heart Failure, Hyperlipidemia, Hypertension, Osteoarthritis (OA), Pneumonia, Seizure Disorder, Skin Disorder, Sleep Apnea/CPAP/BIPAP, Thyroid Disorder Additional Past Medical History / Comment(s): LAST KNOWN SEIZURE a couple months ago. developementally disabled, restless leg syndrme, cervical and back pain with pain down bilateral legs, leg weakness, occasional numbness and tingling to bilateral hands and feet,cpap used currently, abdominal pain. (diarrhea)- right after eating, states has had recent falls, persistant itching-cause unknown, sees pain specialist for chronic pain (entire body) History of Any Multi-Drug Resistant Organisms: None Reported Past Surgical History: Adenoidectomy, Bariatric Surgery, Cholecystectomy, Heart Catheterization, Hysterectomy, Tonsillectomy Additional Past Surgical History / Comment(s): cervical surgery/cage sleeve gastrectomy 12-01-18 Past Anesthesia/Blood Transfusion Reactions: No Reported Reaction Additional Past Anesthesia/Blood Transfusion Reaction / Comm: states "was told by my sister's boyfriend that I had trouble breathing and almost during my neck surgery",no hx blood transfusion Date of Last Stent Placement:: 06/03/2014 Past Psychological History: Depression Additional Psychological History / Comment(s): Pt states she currently resides with her sister. She is mildly developmentally delayed. 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 Past Drug Use History: None Reported - Past Family History Father Family Medical History: Cancer Additional Family Medical History / Comment(s): stomach Sister(s) Family Medical History: Cancer Additional Family Medical History / Comment(s): stomach CA Mother Family Medical History: No Reported History Additional Family Medical History / Comment(s): . Surgical - Exam Vital Signs Temp Pulse Resp BP 98.8 F 67 18 142/88 02/13/20 12:52 02/13/20 12:52 02/13/20 12:52 02/13/20 12:52 - General well developed, well nourished, no distress - Eyes PERRL - ENT normal pinna - Neck no masses - Respiratory normal expansion - Cardiovascular Rhythm: regular - Abdomen Abdomen: soft, non tender Bariatric Assessment & Plan Plan: Status post sleeve gastrectomy. Patient's. Minimal detrusor. She'll follow-up in 4 weeks. Bariatric Checklist Checklist: Plan: Checklist: EGD: 1. Hiatal hernia: 2. H. Pylori: HgbA1c: Vitamin D: Smoking: Never smoker Primary care physician referral: PCP Barbara Carter=, [place] clearance: Cardiology clearance: Sleep study: Diet journal: VTE risk score: VTE risk level: Rehab needs at discharge:
== END | disposition home or self-care (01) ==
LOC: BARWHC3 11:04
PROVIDERS: ATTEND Surgery
DX: Z48.815 Encounter for surgical aftercare following surgery on the digestive system (principal); Z98.84 Bariatric surgery status; Z90.49 Acquired absence of other specified parts of digestive tract
CPT/HCPCS: 99211

== ENCOUNTER 2020-03-07 15:42 | Emergency (ER) | payer MEDICARE, OTHER ==
[2020-03-07 16:07] VITALS: RESP 18; TEMP 98
[2020-03-07] MEDS ORDERED: MORPHINE SULFATE 4 MG/ML SYRINGE IV STA (16:17)
[2020-03-07] MEDS ORDERED: SODIUM CHLORIDE 0.9% 1,000 ML IV STA (16:17)
--- NOTE | 2020-03-07 16:20 | ED ---
Chest Pain HPI - General Chief Complaint: Chest Pain Stated Complaint: chest pain Time Seen by Provider: 03/07/20 15:53 Source: patient, EMS, RN notes reviewed, old records reviewed Mode of arrival: EMS Limitations: no limitations - History of Present Illness Initial Comments: This is a 59-year-old female of a mildly poor story coming in for some compla ints that she does state that she recent seizure he does have seizure history and also is complaining of chest pain today. No fevers no persistent nausea vomiting no abdominal pain. No other new complaints she does admit to going through some recent stress with roommates and family. MD Complaint: chest pain -: days(s) Onset: during rest, during exertion Pain Location: substernal Pain Radiation: none Quality: aching Consistency: intermittent, now resolved Improves With: nothing Worsens With: nothing Context: other (Increase in stress) Anginal Symptoms: nausea Other Symptoms: palpitations Treatments Prior to Arrival: none - Related Data Home Medications Medication Instructions Recorded Confirmed Loratadine [Claritin] 10 mg PO DAILY 06/28/18 03/07/20 Meclizine [Antivert] 25 mg PO TID PRN 06/28/18 03/07/20 Montelukast [Singulair] 10 mg PO HS 07/19/18 03/07/20 Aspirin EC [Ecotrin Low Dose] 81 mg PO DAILY 02/22/19 03/07/20 Levothyroxine Sodium 137 mcg PO DAILY 11/10/19 03/07/20 Ondansetron Odt [Zofran ODT] 8 mg PO BID PRN 11/10/19 03/07/20 Pantoprazole [Protonix] 40 mg PO DAILY 11/10/19 03/07/20 Potassium Chloride ER [K-Dur 10] 10 meq PO Q48H 11/10/19 03/07/20 Umeclidinium Brm/Vilanterol Tr 1 puff INHALATION RT-DAILY 11/10/19 03/07/20 [Anoro Ellipta 62.5-25 Mcg INH] Diclofenac Sodium Gel [Voltaren 1 applic TOPICAL BID PRN 11/25/19 03/07/20 Gel] Fluticasone Propionate [Flovent 2 puff INHALATION RT-BID 11/25/19 03/07/20 Hfa 220 mcg] Nystatin [Nystop] 1 applic TOPICAL BID PRN 11/25/19 03/07/20 Furosemide [Lasix] 20 mg PO Q48H 03/07/20 03/07/20 HYDROcodone/APAP 10-325MG [Winger 1 tab PO Q6H PRN 03/07/20 03/07/20 10-325] Lovastatin [Mevacor] 40 mg PO HS 03/07/20 03/07/20 Mirabegron [Myrbetriq] 25 mg PO DAILY 03/07/20 03/07/20 levETIRAcetam [Keppra] 1,000 mg PO Q12HR 03/07/20 03/07/20 Previous Rx's Medication Instructions Recorded Gabapentin [Neurontin] 300 mg PO TID #9 cap 12/06/18 Ipratropium Nebulized [Atrovent 0.5 mg INHALATION RT-QID ml 11/28/19 Nebulized 0.2 MG/ML] Midodrine [ProAmatine] 2.5 mg PO AC-TID 30 Days #90 tab 01/30/20 Nitroglycerin Sl Tabs [Nitrostat] 0.4 mg SUBLINGUAL Q5M PRN 180 Days 01/30/20 #100 tab Allergies Allergy/AdvReac Type Severity Reaction Status Date / Time adhesive Allergy Rash/Hives Verified 03/07/20 17:00 buspirone [From BuSpar] Allergy Itching Verified 03/07/20 17:00 divalproex sodium Allergy Rash/Hives Verified 03/07/20 17:00 [From Depakote] ibuprofen [From Motrin] Allergy Rash/Hives Verified 03/07/20 17:00 latex Allergy Rash/Hives Verified 03/07/20 17:00 Penicillins Allergy Rash/Hives Verified 03/07/20 17:00 topiramate [From Topamax] Allergy Swelling Verified 03/07/20 17:00 Review of Systems ROS Statement: Those systems with pertinent positive or pertinent negative responses have been documented in the HPI. ROS Other: All systems not noted in ROS Statement are negative. EKG Findings - EKG Comments: EKG Findings:: EKG shows sinus bradycardia 57 CO 186 QRS 98 QTc 445 Past Medical History Past Medical History: Chest Pain / Angina, Heart Failure, Hyperlipidemia, Hypertension, Osteoarthritis (OA), Pneumonia, Seizure Disorder, Skin Disorder, Sleep Apnea/CPAP/BIPAP, Thyroid Disorder Additional Past Medical History / Comment(s): LAST KNOWN SEIZURE a couple months ago. developementally disabled, restless leg syndrme, cervical and back pain with pain down bilateral legs, leg weakness, occasional numbness and tingling to bilateral hands and feet,cpap used currently, abdominal pain. (diarrhea)- right after eating, states has had recent falls, persistant itching-cause unknown, sees pain specialist for chronic pain (entire body) History of Any Multi-Drug Resistant Organisms: None Reported Past Surgical History: Adenoidectomy, Bariatric Surgery, Cholecystectomy, Heart Catheterization, Hysterectomy, Tonsillectomy Additional Past Surgical History / Comment(s): cervical surgery/cage sleeve gastrectomy 12-01-18 Past Anesthesia/Blood Transfusion Reactions: No Reported Reaction Additional Past Anesthesia/Blood Transfusion Reaction / Comment(s): states "was told by my sister's boyfriend that I had trouble breathing and almost during my neck surgery",no hx blood transfusion Date of Last Stent Placement:: 06/03/2014 Past Psychological History: Depression Smoking Status: Never smoker Past Alcohol Use History: None Reported Past Drug Use History: None Reported - Past Family History Father Family Medical History: Cancer Additional Family Medical History / Comment(s): stomach Sister(s) Family Medical History: Cancer Additional Family Medical History / Comment(s): stomach CA Mother Family Medical History: No Reported History Additional Family Medical History / Comment(s): . General Exam Limitations: no limitations General appearance: alert, in no apparent distress, anxious Head exam: Present: atraumatic, normocephalic, normal inspection Eye exam: Present: normal appearance, PERRL, EOMI. Absent: scleral icterus, conjunctival injection, periorbital swelling ENT exam: Present: normal exam, mucous membranes moist Neck exam: Present: normal inspection. Absent: tenderness, meningismus, lymphadenopathy Respiratory exam: Present: normal lung sounds bilaterally. Absent: respiratory distress, wheezes, rales, rhonchi, stridor Cardiovascular Exam: Present: regular rate, normal rhythm, normal heart sounds. Absent: systolic murmur, diastolic murmur, rubs, gallop, clicks GI/Abdominal exam: Present: soft, normal bowel sounds. Absent: distended, tenderness, guarding, rebound, rigid Extremities exam: Present: normal inspection, full ROM, normal capillary refill. Absent: tenderness, pedal edema, joint swelling, calf tenderness Back exam: Present: normal inspection Neurological exam: Present: alert, oriented X3, CN II-XII intact Psychiatric exam: Present: normal affect, normal mood Skin exam: Present: warm, dry, intact, normal color. Absent: rash Course Vital Signs 03/07/20 03/07/20 15:57 17:25 Temperature 98 F Pulse Rate 58 L 62 Respiratory 18 18 Rate Blood Pressure 150/115 166/89 O2 Sat by Pulse 98 95 Oximetry - Reevaluation(s) Reevaluation #1: 03/07/20 16:59 Medical records reviewed Reevaluation #2: 03/07/20 18:17 Patient no longer anxious not homicidal or suicidal Chest Pain MDM - MDM 59 female to the ER for evaluation of chest pain and anxiety. Patient can be discharged home Disposition Clinical Impression: Non-cardiac chest pain, Chest pain, Anxiety Disposition: HOME SELF-CARE Condition: Good Instructions (If sedation given, give patient instructions): Chest Pain (ED) Is patient prescribed a controlled substance at d/c from ED?: No Referrals: Júnior Hanccok MD [Primary Care Provider] - 1-2 days
[2020-03-07 16:48] LABS: Basophils % (A) 1 %; Eosinophils # (A) 0.1 k/uL (0-0.7); Eosinophils % (A) 2 %; HGB 12.7 gm/dL (11.4-16.0); Lymphocytes % (A) 31 %; MCH 31.3 pg (25.0-35.0); MCHC 34.3 g/dL (31.0-37.0); MCV 91.2 fL (80.0-100.0); Mean Platelet Volume 7.6; Monocytes # (A) 0.3 k/uL (0-1.0); Monocytes % (A) 4 %; Neutrophils # (A) 3.9 k/uL (1.3-7.7); Neutrophils % (A) 61 %; Platelet Count 238 k/uL (150-450); RBC 4.06 m/uL (3.80-5.40); RDW 12.9 % (11.5-15.5); WBC 6.4 k/uL (3.8-10.6)
[2020-03-07 17:07] LABS: ALT 7 U/L (4-34); AST 19 U/L (14-36); African American GFR (CKD) >90 (>60 ml/min/1.73 sqM); Albumin 3.6 g/dL (3.5-5.0); Alkaline Phosphatase 72 U/L (38-126); Anion Gap 5 mmol/L; Blood Urea Nitrogen 14 mg/dL (7-17); Calcium 9.2 mg/dL (8.4-10.2); Carbon Dioxide 29 mmol/L (22-30); Chloride 107 mmol/L (98-107); Creatine Kinase 30 U/L (30-135); Glucose 103 mg/dL (74-99); Lipase 41 U/L (23-300); Non-African American GFR(CKD) >90 (>60 ml/min/1.73 sqM); Potassium 3.1 mmol/L (3.5-5.1); Sodium 141 mmol/L (137-145); Total Bilirubin 0.6 mg/dL (0.2-1.3); Total Protein 6.3 g/dL (6.3-8.2)
--- NOTE | 2020-03-07 17:13 | XR ---
EXAMINATION TYPE: XR chest 2V DATE OF EXAM: 03/07/2020 COMPARISON: 01/28/2020 HISTORY: Chest pain TECHNIQUE: FINDINGS: Heart and mediastinum are normal. Lungs are clear. Diaphragm is normal. Bony thorax is inta ct. IMPRESSION: Normal chest. No change.
[2020-03-07 17:25] VITALS: BP 166/89
[2020-03-07 18:47] VITALS: PULSE 57
== END 2020-03-07 18:46 | disposition home or self-care (01) ==
LOC: EC 15:42
DX: R07.89 Other chest pain (principal); F41.9 Anxiety disorder, unspecified; F32.9 Major depressive disorder, single episode, unspecified; I11.0 Hypertensive heart disease with heart failure; I50.9 Heart failure, unspecified; M19.90 Unspecified osteoarthritis, unspecified site; I20.9 Angina pectoris, unspecified; G47.33 Obstructive sleep apnea (adult) (pediatric); E07.9 Disorder of thyroid, unspecified; Z79.82 Long term (current) use of aspirin; Z79.890 Hormone replacement therapy; Z79.899 Other long term (current) drug therapy; Z88.0 Allergy status to penicillin; Z88.8 Allergy status to other drugs, medicaments and biological substances; Z88.6 Allergy status to analgesic agent; Z91.048 Other nonmedicinal substance allergy status; Z95.5 Presence of coronary angioplasty implant and graft; Z90.710 Acquired absence of both cervix and uterus; Z90.49 Acquired absence of other specified parts of digestive tract
CPT/HCPCS: 36415; 93005; 83880; 80053; 82550; 83690; 83735; 84484; 85025; 71046; 99285; 96374; 96361 ×2; J2270

== ENCOUNTER → 2020-03-12 | Outpatient (CLI) | payer MEDICARE, OTHER ==
[~2020-03-12] MED LIST changes: -DEXAMETHASONE SOD PHOSPHATE 10 MG/ML 1 ML VIAL IV ONE; -ENOXAPARIN 40 MG/0.4 ML SYRINGE SQ ONE; -KETOROLAC 30 MG/ML 1 ML VIAL IVP SCH; +LACTATED RINGERS 1,000 ML IV SCH; -LIDOCAINE 1% 20 ML VIAL (10MG/ML) FOR IV START INTRADERMA PRN; -METOCLOPRAMIDE 5 MG/ML 2 ML VIAL IVP PRN; -ONDANSETRON 4 MG/2 ML VIAL IVP ONE; -ONDANSETRON 4 MG/2 ML VIAL IVP PRN; -SCOPOLAMINE 1.5MG/72HR PATCH TRANSDERM ONE; -ceFAZolin 3 GM in SODIUM CHLORIDE 0.9% 100 ML IVPB ONE
[2020-03-12 13:16] VITALS: RESP 16; BMI 30.7
[2020-03-12 13:48] VITALS: BP 153/84; PULSE 67; TEMP 97.9
[2020-03-12 14:21] LABS: African American GFR (CKD) >90 (>60 ml/min/1.73 sqM); Anion Gap 5 mmol/L; Blood Urea Nitrogen 14 mg/dL (7-17); Calcium 9.5 mg/dL (8.4-10.2); Carbon Dioxide 31 mmol/L (22-30); Chloride 105 mmol/L (98-107); Glucose 98 mg/dL (74-99); Non-African American GFR(CKD) >90 (>60 ml/min/1.73 sqM); Potassium 3.3 mmol/L (3.5-5.1); Sodium 141 mmol/L (137-145)
--- NOTE | 2020-03-12 14:36 | P.HPBAR ---
Bariatric H&P - History & Physicial H&P Date: 03/12/20 History & Physicial: Visit/CC: dehydration Patient initial contact: Initial weight: 137.438 kg Initial weight in pounds: 303.00 Height: 5 ft 7 in Initial BMI: 47.4 Last weight: Current weight: 89.074 kg Current weight in pounds: 196.38 Current BMI: 30.7 [place] body weight (based on NIH guidelines): 61.235 kg Excess body weight loss: 63.4% The patient is a 59 year-old F who presents for Bariatric Assessment. Patient some complaints of fatigue and dehydration. She states she is able to drink any and is not vomiting. But she just doesn't feel well today. Past Medical History Past Medical History: Chest Pain / Angina, Heart Failure, Hyperlipidemia, Hypertension, Osteoarthritis (OA), Pneumonia, Seizure Disorder, Skin Disorder, Sleep Apnea/CPAP/BIPAP, Thyroid Disorder Additional Past Medical History / Comment(s): LAST KNOWN SEIZURE a couple months ago. developementally disabled, restless leg syndrme, cervical and back pain with pain down bilateral legs, leg weakness, occasional numbness and tingling to bilateral hands and feet,cpap used currently, abdominal pain. (diarrhea)- right after eating, states has had recent falls, persistant itching-cause unknown, sees pain specialist for chronic pain (entire body) History of Any Multi-Drug Resistant Organisms: None Reported Past Surgical History: Adenoidectomy, Bariatric Surgery, Cholecystectomy, Heart Catheterization, Hysterectomy, Tonsillectomy Additional Past Surgical History / Comment(s): cervical surgery/cage sleeve ga strectomy 12-01-18 Past Anesthesia/Blood Transfusion Reactions: No Reported Reaction Additional Past Anesthesia/Blood Transfusion Reaction / Comm: states "was told by my sister's boyfriend that I had trouble breathing and almost during my neck surgery",no hx blood transfusion Date of Last Stent Placement:: 06/03/2014 Smoking Status: Never smoker - Past Family History Father Family Medical History: Cancer Additional Family Medical History / Comment(s): stomach Sister(s) Family Medical History: Cancer Additional Family Medical History / Comment(s): stomach CA Mother Family Medical History: No Reported History Additional Family Medical History / Comment(s): . Surgical - Exam Vital Signs Temp Pulse Resp BP 98.7 F 60 16 146/98 03/12/20 13:15 03/12/20 13:15 03/12/20 13:15 03/12/20 13:15 - General well developed, well nourished, no distress - Eyes PERRL - ENT normal pinna - Neck no masses - Respiratory normal expansion - Cardiovascular Rhythm: regular - Abdomen Abdomen: soft, non tender Results - Labs 03/12/20 13:30 Abnormal Lab Results - Last 24 Hours (Table) 03/12/20 Range/Units 13:30 Potassium 3.3 L (3.5-5.1) mmol/L Carbon Dioxide 31 H (22-30) mmol/L Diabetes panel 03/12/20 Range/Units 13:30 Sodium 141 (137-145) mmol/L Potassium 3.3 L (3.5-5.1) mmol/L Chloride 105 (98-107) mmol/L Carbon Dioxide 31 H (22-30) mmol/L BUN 14 (7-17) mg/dL Creatinine 0.66 (0.52-1.04) mg/dL Glucose 98 (74-99) mg/dL Calcium 9.5 (8.4-10.2) mg/dL Calcium panel 03/12/20 Range/Units 13:30 Calcium 9.5 (8.4-10.2) mg/dL Pituitary panel 03/12/20 Range/Units 13:30 Sodium 141 (137-145) mmol/L Potassium 3.3 L (3.5-5.1) mmol/L Chloride 105 (98-107) mmol/L Carbon Dioxide 31 H (22-30) mmol/L BUN 14 (7-17) mg/dL Creatinine 0.66 (0.52-1.04) mg/dL Glucose 98 (74-99) mg/dL Calcium 9.5 (8.4-10.2) mg/dL Adrenal panel 03/12/20 Range/Units 13:30 Sodium 141 (137-145) mmol/L Potassium 3.3 L (3.5-5.1) mmol/L Chloride 105 (98-107) mmol/L Carbon Dioxide 31 H (22-30) mmol/L BUN 14 (7-17) mg/dL Creatinine 0.66 (0.52-1.04) mg/dL Glucose 98 (74-99) mg/dL Calcium 9.5 (8.4-10.2) mg/dL Bariatric Assessment & Plan Plan: Status post sleeve yesterday. Patient may have some dehydration. Her GERD is minimal. Patient will receive fluid hydration today. We'll also check her electrolytes. Bariatric Checklist Checklist: Plan: Checklist: EGD: 1. Hiatal hernia: 2. H. Pylori: HgbA1c: Vitamin D: Smoking: Never smoker Primary care physician referral: PCP Barbara Carter=Dr.Rina Pulmon ologist=[facility] clearance: Cardiology clearance: Sleep study: Diet journal: VTE risk score: VTE risk level: Rehab needs at discharge:
== END | disposition home or self-care (01) ==
LOC: BARWHC3 12:29
PROVIDERS: ATTEND Surgery
DX: E86.0 Dehydration (principal)
CPT/HCPCS: 80048; 96360; 36415; G0463; 99211

== ENCOUNTER → 2020-04-09 | Outpatient (CLI) | payer MEDICARE, OTHER ==
--- NOTE | 2020-04-12 13:24 | P.ARTDOP ---
Arterial Doppler LOWER EXTREMITY ARTERIAL DOPPLER: DATE OF SERVICE: 04/09/2020 Reason for study: Bilateral lower extremity neuropathy. Doppler waveforms: Multiphasic bilaterally throughout. Pulse volume recording: []. Pressure gradients: None. Ankle-brachial indices: Greater than 1 bilaterally. Toe brachial indices: 1.03 on the right, 1.03 on the left Impression: Normal study.
== END | disposition home or self-care (01) ==
LOC: RADUSWWP 12:12
PROVIDERS: ATTEND Family Medicine
DX: I73.9 Peripheral vascular disease, unspecified (principal)
CPT/HCPCS: 93922

== ENCOUNTER → 2020-04-09 | Outpatient (CLI) | payer MEDICARE, OTHER ==
[2020-04-09 13:25] VITALS: BP 134/92; PULSE 73; RESP 18; TEMP 97.4; BMI 30.4
--- NOTE | 2020-04-09 15:51 | P.HPBAR ---
Bariatric H&P - History & Physicial H&P Date: 04/09/20 History & Physicial: Visit/CC: follow up Patient initial contact: Initial weight: 137.438 kg Initial weight in pounds: 303.00 Height: 5 ft 7 in Initial BMI: 47.4 Last weight: Current weight: 88.042 kg Current weight in pounds: 194.10 Current BMI: 30.4 [place] body weight (based on NIH guidelines): 61.235 kg Excess body weight loss: 64.8% The patient is a 59 year-old F who presents for Bariatric Assessment. She has had complaints of GERD. Weight is stable. Past Medical History Past Medical History: Chest Pain / Angina, Heart Failure, Hyperlipidemia, Hypertension, Osteoarthritis (OA), Pneumonia, Seizure Disorder, Skin Disorder, Sleep Apnea/CPAP/BIPAP, Thyroid Disorder Additional Past Medical History / Comment(s): LAST KNOWN SEIZURE a couple months ago. developementally disabled, restless leg syndrme, cervical and back pain with pain down bilateral legs, leg weakness, occasional numbness and tingling to bilateral hands and feet,cpap used currently, abdominal pain. (diarrhea)- right after eating, states has had recent falls, persistant itching-cause unknown, sees pain specialist for chronic pain (entire body) History of Any Multi-Drug Resistant Organisms: None Reported Past Surgical History: Adenoidectomy, Bariatric Surgery, Cholecystectomy, Heart Catheterization, Hysterectomy, Tonsillectomy Additional Past Surgical History / Comment(s): cervical surgery/cage sleeve gastrectomy 8-11-12 Past Anesthesia/Blood Transfusion Reactions: No Reported Reaction Additional Past Anesthesia/Blood Transfusion Reaction / Comm: states "was told by my sister's boyfriend that I had trouble breathing and almost during my neck surgery",no hx blood transfusion Date of Last Stent Placement:: 06/03/2014 Past Psychological History: Depression Additional Psychological History / Comment(s): Pt states she currently resides with her sister. She is mildly developmentally delayed. 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 Past Drug Use History: None Reported - Past Family History Father Family Medical History: Cancer Additional Family Medical History / Comment(s): stomach Sister(s) Family Medical History: Cancer Additional Family Medical History / Comment(s): stomach CA Mother Family Medical History: No Reported History Additional Family Medical History / Comment(s): . Surgical - Exam Vital Signs Temp Pulse Resp BP Pulse Ox 97.4 F L 73 18 134/92 97 04/09/20 13:13 04/09/20 13:13 04/09/20 13:13 04/09/20 13:13 04/09/20 13:13 - General well developed, well nourished, no distress - Eyes PERRL - ENT normal pinna - Neck no masses - Respiratory normal expansion - Cardiovascular Rhythm: regular - Abdomen Abdomen: soft, non tender Bariatric Assessment & Plan Plan: Status post sleeve gastrectomy. Patient's GERD is minimal intimal be observed. air. She'll follow-up in 4 weeks. Bariatric Checklist Checklist: Plan: Checklist: EGD: 1. Hiatal hernia: 2. H. Pylori: HgbA1c: Vitamin D: Smoking: Never smoker Primary care physician referral: PCP Barbara Carter=, [place] clearance: Cardiology clearance: Sleep study: Diet journal: VTE risk score: VTE risk level: Rehab needs at discharge:
== END | disposition home or self-care (01) ==
LOC: BARWHC3 12:56
PROVIDERS: ATTEND Surgery
DX: Z48.815 Encounter for surgical aftercare following surgery on the digestive system (principal); Z98.84 Bariatric surgery status; K21.9 Gastro-esophageal reflux disease without esophagitis
CPT/HCPCS: 99211

== ENCOUNTER → 2020-05-07 | Outpatient (CLI) | payer MEDICARE, OTHER ==
--- NOTE | 2020-05-08 10:29 | P.HPBAR ---
Bariatric H&P - History & Physicial H&P Date: 05/07/20 History & Physicial: Visit/CC: follow up Patient initial contact: Initial weight: 137.438 kg Initial weight in pounds: 303.00 Height: 5 ft 7 in Initial BMI: 47.4 Last weight: Current weight: 87.543 kg Current weight in pounds: 193.00 Current BMI: 30.2 [place] body weight (based on NIH guidelines): 61.235 kg Excess body weight loss: 65.4% The patient is a 59 year-old F who presents for Bariatric Assessment. Patient presents today for sleeve gastrectomy follow-up. She's had some minimal GERD. Patient states that she has had no significant dysphagia. Past Medical History Past Medical History: Chest Pain / Angina, Heart Failure, Hyperlipidemia, Hypertension, Osteoarthritis (OA), Pneumonia, Seizure Disorder, Skin Disorder, Sleep Apnea/CPAP/BIPAP, Thyroid Disorder Additional Past Medical History / Comment(s): LAST KNOWN SEIZURE a couple months ago. developementally disabled, restless leg syndrme, cervical and back pain with pain down bilateral legs, leg weakness, occasional numbness and tingling to bilateral hands and feet,cpap used currently, abdominal pain. (diarrhea)- right after eating, states has had recent falls, persistant itching-cause unknown, sees pain specialist for chronic pain (entire body) History of Any Multi-Drug Resistant Organisms: None Reported Past Surgical History: Adenoidectomy, Bariatric Surgery, Cholecystectomy, Heart Catheterization, Hysterectomy, Tonsillectomy Additional Past Surgical History / Comment(s): cervical surgery/cage sleeve gastrectomy 12-01-18 Past Anesthesia/Blood Transfusion Reactions: No Reported Reaction Additional Past Anesthesia/Blood Transfusion Reaction / Comm: states "was told by my sister's boyfriend that I had trouble breathing and almost during my neck surgery",no hx blood transfusion Date of Last Stent Placement:: 06/03/2014 Past Psychological History: Depression Additional Psychological History / Comment(s): Pt states she currently resides with her sister. She is mildly developmentally delayed. 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 Past Drug Use History: None Reported - Past Family History Father Family Medical History: Cancer Additional Family Medical History / Comment(s): stomach Sister(s) Family Medical History: Cancer Additional Family Medical History / Comment(s): stomach CA Mother Family Medical History: No Reported History Additional Family Medical History / Comment(s): . Surgical - Exam Vital Signs Temp Pulse Resp BP 98.4 F 60 18 176/76 05/07/20 13:04 05/07/20 13:04 05/07/20 13:04 05/07/20 13:04 - General well developed, well nourished, no distress - Eyes PERRL - ENT normal pinna - Neck no masses - Respiratory normal expansion - Cardiovascular Rhythm: regular - Abdomen Abdomen: soft, non tender Bariatric Assessment & Plan Plan: Status post sleeve gastrectomy. Patient's GERD is minimal and will be observed. She'll follow-up in 4 weeks. Bariatric Checklist Checklist: Plan: Checklist: EGD: 1. Hiatal hernia: 2. H. Pylori: HgbA1c: Vitamin D: Smoking: Never smoker Primary care physician referral: PCP Barbara Carter=, Furniture Sander[facility] Psychiatry clearance: Cardiology clearance: Sleep study: Diet journal: VTE risk score: VTE risk level: Rehab needs at discharge:
== END | disposition home or self-care (01) ==
CPT/HCPCS: 99211

== ENCOUNTER 2020-05-28 09:45 | Day surgery (SDC) | payer MEDICARE, OTHER ==
[~2020-05-28 09:45] MED LIST changes: +CLINDAMYCIN 900 MG in DEXTROSE 5% IN WATER 50 ML IVPB PRN; -LACTATED RINGERS 1,000 ML IV SCH; +SODIUM CHLORIDE 0.9% 1,000 ML IV SCH
[2020-05-28 10:16] VITALS: RESP 18; TEMP 98.7
[2020-05-28] MEDS ORDERED: LIDOCAINE 1% INJ 10MG/ML (20 ML MDV) ONE (10:41)
[2020-05-28] MEDS: MIDAZOLAM 2 MG/2 ML VIAL IV ONE ×2 (10:49→10:57)
[2020-05-28] MEDS: LIDOCAINE 1% INJ 10MG/ML (20 ML MDV) SQ ONE ×2 (11:01→11:06)
--- NOTE | 2020-05-28 11:30 | P.EPPROC ---
- EP Procedure Note Electrophysiology Procedure Note: Diagnosis Recurrent syncopal he Loop monitor implant Primary physicians: Doctor Of Veterinary Medicine: Indication: Recurrent syncope Patient was brought to the EP lab in a fasting state. Written informed consent was obtained prior to the procedure. The left pectoral area was prepped and draped per protocol. Intravenous antibiotic was administered preoperatively. A subcutaneous Loop monitor was implanted successfully and the wound was closed per protocol. The device was programmed to detect significant yuri- arrhythmic and tachy-arrhythmic events, per protocol. Device and programming details: Syncope protocol Patient underwent EP procedure under conscious sedation/moderate sedation, monitoring of the level of consciousness and physiologic parameters including but not limited to vital signs and oxygenation. Patient tolerated the procedure well without any acute complications. Start time: 1100 Stop time: 1110
[2020-05-28 12:11] VITALS: BP 158/76; PULSE 59
[2020-05-29] MEDS ORDERED: CLINDAMYCIN 900 MG in DEXTROSE 5% IN WATER 50 ML IVPB PRN ×2 (07:00)
== END 2020-05-28 12:55 | disposition home or self-care (01) ==
LOC: CATHEP 09:45
PROVIDERS: ATTEND Internal Medicine Clinical Cardiac Electrophysiology
DX: R55 Syncope and collapse (principal); E78.5 Hyperlipidemia, unspecified; I10 Essential (primary) hypertension; F70 Mild intellectual disabilities; E66.9 Obesity, unspecified; Z79.899 Other long term (current) drug therapy; Z79.82 Long term (current) use of aspirin; Z79.890 Hormone replacement therapy; Z79.1 Long term (current) use of non-steroidal anti-inflammatories (NSAID); Z79.51 Long term (current) use of inhaled steroids; Z88.6 Allergy status to analgesic agent; Z88.0 Allergy status to penicillin; Z88.8 Allergy status to other drugs, medicaments and biological substances; Z68.30 Body mass index [BMI] 30.0-30.9, adult; Z87.2 Personal history of diseases of the skin and subcutaneous tissue
CPT/HCPCS: 33285; C1764; J2250; J2001

== ENCOUNTER → 2020-06-11 | Outpatient (CLI) | payer MEDICARE, OTHER ==
[2020-06-11 13:01] VITALS: PULSE 74; RESP 16; TEMP 97.6; BMI 29.7
[2020-06-11 13:39] VITALS: BP 151/99
--- NOTE | 2020-06-25 11:42 | P.HPBAR ---
Bariatric H&P - History & Physicial H&P Date: 06/11/20 History & Physicial: Visit/CC: [place] f/u Patient initial contact: Initial weight: 137.438 kg Initial weight in pounds: 303.00 Height: 5 ft 7 in Initial BMI: 47.4 Last weight: Current weight: 86.183 kg Current weight in pounds: 190.00 Current BMI: 29.7 [place] body weight (based on NIH guidelines): 61.235 kg Excess body weight loss: 67.2% The patient is a 59 year-old F who presents for Bariatric Assessment. Patient presents today for follow-up. She feels well. She's had some mild GERD. Past Medical History Past Medical History: Asthma, Chest Pain / Angina, Heart Failure, Hyperlipi demia, Hypertension, Osteoarthritis (OA), Pneumonia, Seizure Disorder, Skin Disorder, Sleep Apnea/CPAP/BIPAP, Thyroid Disorder Additional Past Medical History / Comment(s): See Dr Jennings H&P, LAST KNOWN SEIZURE approximately first of april 2020, developementally disabled, restless leg syndrome, cervical and back pain with pain down bilateral legs, leg weakness, occasional numbness and tingling to bilateral hands and feet,cpap used currently, abdominal pain. (diarrhea)- right after eating, states has had recent falls, persistant itching-cause unknown, sees pain specialist for chronic pain (entire body) History of Any Multi-Drug Resistant Organisms: None Reported Past Surgical History: Adenoidectomy, Bariatric Surgery, Cholecystectomy, Heart Catheterization, Hysterectomy, Pacemaker, Tonsillectomy Additional Past Surgical History / Comment(s): cervical surgery/cage, sleeve gastrectomy 12-01-18; DR JENNINGS placed pacemaker on 05/28/2020 - pt unsure as to what type it is. Past Anesthesia/Blood Transfusion Reactions: Previous Problems w/ Anesthesia Additional Past Anesthesia/Blood Transfusion Reaction / Comm: states "was told by my sister's boyfriend that I had trouble breathing and almost during my neck surgery",no hx blood transfusion Date of Last Stent Placement:: 06/03/2014 Type of Cardiac Device: Unknown Device Placement Date:: 05/28/2020 Past Psychological History: Depression Additional Psychological History / Comment(s): Pt states she currently resides with her sister. She is mildly developmentally delayed. 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 Past Drug Use History: None Reported - Past Family History Father Family Medical History: Cancer Additional Family Medical History / Comment(s): stomach Sister(s) Family Medical History: Cancer Additional Family Medical History / Comment(s): stomach CA Mother Family Medical History: No Reported History Additional Family Medical History / Comment(s): . Surgical - Exam Vital Signs Temp Pulse Resp BP 97.6 F 74 16 151/99 06/11/20 12:57 06/11/20 12:57 06/11/20 12:57 06/11/20 12:57 - General well developed, well nourished, no distress - Eyes PERRL - ENT normal pinna - Neck no masses - Cardiovascular Rhythm: regular - Abdomen Abdomen: soft, non tender Bariatric Assessment & Plan Plan: Status post sleeve history. Patient is minimal a will be observed she'll follow-up in 4 weeks. Bariatric Checklist Checklist: Plan: Checklist: EGD: 1. Hiatal hernia: 2. H. Pylori: HgbA1c: Vitamin D: Smoking: Never smoker Primary care physician referral: PCP Barbara Carter=, Specialty Transformer Assembler= [place] Psychiatry clearance: Cardiology clearance: Sleep study: Diet journal: VTE risk score: VTE risk level: Rehab needs at discharge:
== END | disposition home or self-care (01) ==
LOC: BARWHC3 12:41
PROVIDERS: ATTEND Surgery
DX: Z48.815 Encounter for surgical aftercare following surgery on the digestive system (principal); Z90.49 Acquired absence of other specified parts of digestive tract; Z98.84 Bariatric surgery status; Z90.710 Acquired absence of both cervix and uterus
CPT/HCPCS: 99211

== ENCOUNTER → 2020-07-09 | Outpatient (CLI) | payer MEDICARE, OTHER ==
[2020-07-09 13:15] VITALS: BP 131/89; PULSE 64; RESP 18; TEMP 97.6; BMI 29.9
[2020-07-09 14:50] LABS: HCT 38.7 % (34.0-46.0); HGB 12.9 gm/dL (11.4-16.0); MCH 30.4 pg (25.0-35.0); MCHC 33.5 g/dL (31.0-37.0); MCV 90.9 fL (80.0-100.0); Mean Platelet Volume 7.4; Platelet Count 256 k/uL (150-450); RBC 4.26 m/uL (3.80-5.40); RDW 13.4 % (11.5-15.5); WBC 5.8 k/uL (3.8-10.6)
[2020-07-10 01:29] LABS: % Iron Saturation 16.73 (12.00-45.00); African American GFR (CKD) 117.3 (60.0-200.0); Albumin 4.4 g/dL (3.80-4.90); Albumin/Globulin Ratio 2.44 (1.60-3.17); Anion Gap 7.6 mmol/L (4.00-12.00); BUN/Creat Ratio 18.33 Ratio (12.00-20.00); Calcium 9.5 mg/dL (8.7-10.3); Carbon Dioxide 27.4 mmol/L (21.6-31.8); Globulin 1.8 g/dL (1.6-3.3); Magnesium 1.7 mg/dL (1.5-2.4); Non-African American GFR(CKD) 101.2 (60.0-200.0); Potassium 3.5 mmol/L (3.5-5.5); Total Bilirubin 0.5 mg/dL (0.3-1.2); Total Protein 6.2 g/dL (6.2-8.2)
[2020-07-10 01:41] LABS: Ferritin 37.8 ng/mL (10.0-291.0)
[2020-07-10 01:51] LABS: Folate, Serum 12.3 ng/mL
[2020-07-10 13:57] LABS: Zinc, Serum 78 ug/dL (60-130)
[2020-07-11 07:33] LABS: Vitamin A 22 ug/dL (38-106)
[2020-07-12 00:18] LABS: Selenium 102 mcg/L (63-160)
[2020-07-12 10:46] LABS: Vit B1(Thiamine) 46 ug/L (38-122)
--- NOTE | 2020-07-16 16:02 | P.HPBAR ---
Bariatric H&P - History & Physicial H&P Date: 07/09/20 History & Physicial: Visit/CC: follow up Patient initial contact: Initial weight: 137.438 kg Initial weight in pounds: 303.00 Height: 5 ft 7 in Initial BMI: 47.4 Last weight: Current weight: 86.636 kg Current weight in pounds: 191.00 Current BMI: 29.9 [place] body weight (based on NIH guidelines): 61.235 kg Excess body weight loss: 66.6% The patient is a 59 year-old F who presents for Bariatric Assessment. Patient presents today for sleeve gastric fall. She's had quite of GERD. Overall she feels stronger. Past Medical History Past Medical History: Asthma, Chest Pain / Angina, Heart Failure, Hyperlipidemia, Hypertension, Osteoarthritis (OA), Pneumonia, Seizure Disorder, Skin Disorder, Sleep Apnea/CPAP/BIPAP, Thyroid Disorder Additional Past Medical History / Comment(s): See Dr Jennings H&P, LAST KNOWN SEIZURE approximately first of april 2020, developementally disabled, restless leg syndrome, cervical and back pain with pain down bilateral legs, leg weakness, occasional numbness and tingling to bilateral hands and feet,cpap used currently, abdominal pain. (diarrhea)- right after eating, states has had recent falls, persistant itching-cause unknown, sees pain specialist for chronic pain (entire body) History of Any Multi-Drug Resistant Organisms: None Reported Past Surgical History: Adenoidectomy, Bariatric Surgery, Cholecystectomy, Heart Catheterization, Hysterectomy, Pacemaker, Tonsillectomy Additional Past Surgical History / Comment(s): cervical surgery/cage, sleeve gastrectomy 12-01-18; DR JENNINGS placed pacemaker on 05/28/2020 - pt unsure as to what type it is. Past Anesthesia/Blood Transfusion Reactions: Previous Problems w/ Anesthesia Additional Past Anesthesia/Blood Transfusion Reaction / Comm: states "was told by my sister's boyfriend that I had trouble breathing and almost during my neck surgery",no hx blood transfusion Date of Last Stent Placement:: 06/03/2014 Type of Cardiac Device: Unknown Device Placement Date:: 05/28/2020 Past Psychological History: Depression Additional Psychological History / Comment(s): Pt states she currently resides with her sister. She is mildly developmentally delayed. 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 Past Drug Use History: None Reported - Past Family History Father Family Medical History: Cancer Additional Family Medical History / Comment(s): stomach Sister(s) Family Medical History: Cancer Additional Family Medical History / Comment(s): stomach CA Mother Family Medical History: No Reported History Additional Family Medical History / Comment(s): . Surgical - Exam Vital Signs Temp Pulse Resp BP 97.6 F 64 18 131/89 07/09/20 13:06 07/09/20 13:06 07/09/20 13:06 07/09/20 13:06 - General well developed, well nourished, no distress - Eyes PERRL - ENT normal pinna - Neck no masses - Respiratory normal expansion - Cardiovascular Rhythm: regular - Abdomen Abdomen: soft, non tender Results - Labs 07/09/20 14:22 07/09/20 14:22 Bariatric Assessment & Plan Plan: Status post sleeve history. Patient's urine is minimal observe her to follow-up in 4 weeks. Bariatric Checklist Checklist: Plan: Checklist: EGD: 1. Hiatal hernia: 2. H. Pylori: HgbA1c: Vitamin D: Smoking: Never smoker Primary care physician referral: PCP Barbara Carter=, Risk Specialist=[place] Psychiatry clearance: Cardiology clearance: Sleep study: Diet journal: VTE risk score: VTE risk level: Rehab needs at discharge:
== END ==
LOC: BARWHC3 12:21
PROVIDERS: ATTEND Surgery
DX: Z98.84 Bariatric surgery status (principal); Z46.51 Encounter for fitting and adjustment of gastric lap band; J45.909 Unspecified asthma, uncomplicated; M19.90 Unspecified osteoarthritis, unspecified site; E03.9 Hypothyroidism, unspecified; I50.9 Heart failure, unspecified; I10 Essential (primary) hypertension
CPT/HCPCS: 84255; 84425; 80053; 82607; 82728; 82746; 83540; 83550; 83735; 84443; 84590; 84630; 85027; 82306; 36415; G0463; 99211

== ENCOUNTER 2020-08-04 12:57 | Emergency (ER) | payer MEDICARE, OTHER ==
[2020-08-04 13:32] VITALS: BP 123/89; PULSE 64; RESP 18; TEMP 97.9
--- NOTE | 2020-08-04 14:58 | ED ---
General Adult HPI - General Chief complaint: Skin/Abscess/Foreign Body Stated complaint: spots on legs Time Seen by Provider: 08/04/20 14:43 Source: patient Mode of arrival: wheelchair Limitations: no limitations - History of Present Illness Initial comments: Dictation was produced using [employer] dictation software. please excuse any grammatical, word or spelling errors. This patient was cared for during a federal and state declared state of [facility] secondary to Covid 19 Chief Complaint: 59-year-old male presents with a rash on bilateral anterior thighs History of Present Illness: 79-year-old female she called her primary care lloyd lauren. Yesterday she noted that there were 3 rashes on her bilateral anterior thighs. Patient denies any other complaints. She states that she noticed these red rashes to her bilateral anterior thighs. She denies any trauma to the area. She states that they're mildly pruritic. She has no rashes noted in the rest in her body. The ROS documented in this emergency department record has been reviewed and confirmed by me. Those systems with pertinent positive or negative responses have been documented in the HPI. All other systems are other negative and/or noncontributory. PHYSICAL EXAM: General Impression: Alert and oriented x3, not in acute distress HEENT: Normocephalic atraumatic, extra-ocular movements intact, pupils equal and reactive to light bilaterally, mucous membranes moist. Cardiovascular: Heart regular rate and rhythm Chest: Able to complete full sentences, no retractions, no tachypnea Abdomen: abdomen soft, non-tender, non-distended, no organomegaly Musculoskeletal: Pulses present and equal in all extremities, no peripheral edema Motor: no focal deficits noted Neurological: CN II-XII grossly intact, no focal motor or sensory deficits noted Skin: 3 erythematous rashes to the bilateral anterior thighs. They measure approximately 5 x 5 cm. There are 2 rashes on her right anterior thigh and one on her left anterior thigh. Nonblanching nonraised nonpruritic. Non-indurated. No palmar or sole rash. No petechiae and soft palate. Psych: Normal affect and mood ED course: 59-year-old female presents with chief complaint of rash. All signs upon arrival are within acceptable limits. Patient's rash appears to be ecchymotic. Patient has not had any fevers. She is afebrile. She does not have any palmar or sole rash. This is a nonemergent rash. Patient denies that this rash causes any symptoms of discomfort. Laboratory evaluation is unremarkable. Patient has no findings to suggest coagulopathy. Patient be discharged per she is advised to follow-up with her primary care physician. As well as sedentary clear what patient's rash is from. - Related Data Home Medications Medication Instructions Recorded Confirmed Aspirin EC [Ecotrin Low Dose] 81 mg PO DAILY 02/22/19 07/09/20 Levothyroxine Sodium 137 mcg PO DAILY 11/10/19 07/09/20 Pantoprazole [Protonix] 40 mg PO DAILY 11/10/19 07/09/20 HYDROcodone/APAP 10-325MG [[place] 1 tab PO Q6H PRN 03/07/20 07/09/20 10-325] levETIRAcetam [Keppra] 1,500 mg PO Q12HR 03/07/20 07/09/20 Losartan [Cozaar] 25 mg PO BID 05/07/20 07/09/20 Fluticasone Propionate 220 Mcg 2 puff INHALATION BID 05/23/20 07/09/20 [Flovent 220 Mcg Inhaler (Mhu)] Meclizine [Antivert] 12.5 mg PO TID PRN 05/23/20 07/09/20 Gabapentin [Neurontin] 600 mg PO TID 07/09/20 07/09/20 Allergies Allergy/AdvReac Type Severity Reaction Status Date / Time adhesive Allergy Rash/Hives Verified 08/04/20 13:32 buspirone [From BuSpar] Allergy Itching Verified 08/04/20 13:32 divalproex sodium Allergy Rash/Hives Verified 08/04/20 13:32 [From Depakote] ibuprofen [From Motrin] Allergy Rash/Hives Verified 08/04/20 13:32 latex Allergy Rash/Hives Verified 08/04/20 13:32 Penicillins Allergy Rash/Hives Verified 08/04/20 13:32 topiramate [From Topamax] Allergy Swelling Verified 08/04/20 13:32 Review of Systems ROS Statement: Those systems with pertinent positive or pertinent negative responses have been documented in the HPI. ROS Other: All systems not noted in ROS Statement are negative. Past Medical History Past Medical History: Asthma, Chest Pain / Angina, Heart Failure, Hyperlipidemia, Hypertension, Osteoarthritis (OA), Pneumonia, Seizure Disorder, Skin Disorder, Sleep Apnea/CPAP/BIPAP, Thyroid Disorder Additional Past Medical History / Comment(s): See Dr Jennings H&P, LAST KNOWN SEIZURE approximately first of april 2020, developementally disabled, restless leg syndrome, cervical and back pain with pain down bilateral legs, leg weakness, occasional numbness and tingling to bilateral hands and feet,cpap used currently, abdominal pain. (diarrhea)- right after eating, states has had recent falls, persistant itching-cause unknown, sees pain specialist for chronic pain (entire body) History of Any Multi-Drug Resistant Organisms: None Reported Past Surgical History: Adenoidectomy, Bariatric Surgery, Cholecystectomy, Heart Catheterization, Hysterectomy, Pacemaker, Tonsillectomy Additional Past Surgical History / Comment(s): cervical surgery/cage, sleeve gastrectomy 12-01-18; DR JENNINGS placed pacemaker on 05/28/2020 - pt unsure as to what type it is. Past Anesthesia/Blood Transfusion Reactions: Previous Problems w/ Anesthesia Additional Past Anesthesia/Blood Transfusion Reaction / Comment(s): states "was told by my sister's boyfriend that I had trouble breathing and almost during my neck surgery",no hx blood transfusion Date of Last Stent Placement:: 06/03/2014 Type of Cardiac Device: Unknown Device Placement Date:: 05/28/2020 Past Psychological History: Depression Smoking Status: Never smoker Past Alcohol Use History: None Reported Past Drug Use History: None Reported - Past Family History Father Family Medical History: Cancer Additional Family Medical History / Comment(s): stomach Sister(s) Family Medical History: Cancer Additional Family Medical History / Comment(s): stomach CA Mother Family Medical History: No Reported History Additional Family Medical History / Comment(s): . General Exam Limitations: no limitations Course Vital Signs 08/04/20 13:29 Temperature 97.9 F Pulse Rate 64 Respiratory 18 Rate Blood Pressure 123/89 O2 Sat by Pulse 100 Oximetry Medical Decision Making - Lab Data Result diagrams: 08/04/20 15:05 08/04/20 15:05 Lab Results 08/04/20 08/04/20 08/04/20 Range/Units 15:05 15:05 15:05 WBC 5.2 (3.8-10.6) k/uL RBC 4.05 (3.80-5.40) m/uL Hgb 12.4 (11.4-16.0) gm/dL Hct 36.9 (34.0-46.0) % MCV 91.2 (80.0-100.0) fL MCH 30.6 (25.0-35.0) pg MCHC 33.6 (31.0-37.0) g/dL RDW 13.7 (11.5-15.5) % Plt Count 230 (150-450) k/uL MPV 7.4 Neutrophils % 58 % Lymphocytes % 34 % Monocytes % 4 % Eosinophils % 1 % Basophils % 1 % Neutrophils # 3.0 (1.3-7.7) k/uL Lymphocytes # 1.8 (1.0-4.8) k/uL Monocytes # 0.2 (0-1.0) k/uL Eosinophils # 0.1 (0-0.7) k/uL Basophils # 0.0 (0-0.2) k/uL PT 10.6 (9.0-12.0) sec INR 1.0 (<1.2) APTT 24.2 (22.0-30.0) sec Sodium 140 (137-145) mmol/L Potassium 3.6 (3.5-5.1) mmol/L Chloride 106 (98-107) mmol/L Carbon Dioxide 27 (22-30) mmol/L Anion Gap 7 mmol/L BUN 14 (7-17) mg/dL Creatinine 0.49 L (0.52-1.04) mg/dL Est GFR (CKD-EPI)AfAm >90 (>60 ml/min/1.73 sqM) Est GFR (CKD-EPI)NonAf >90 (>60 ml/min/1.73 sqM) Glucose 93 (74-99) mg/dL Calcium 9.4 (8.4-10.2) mg/dL Disposition Clinical Impression: Rash Disposition: HOME SELF-CARE Condition: Good Instructions (If sedation given, give patient instructions): Acute Rash (ED) Is patient prescribed a controlled substance at d/c from ED?: No Referrals: Júnior Hancock MD [Primary Care Provider] - 1-2 days Time of Disposition: 15:28
[2020-08-04 15:16] LABS: Basophils % (A) 1 %; Eosinophils # (A) 0.1 k/uL (0-0.7); Eosinophils % (A) 1 %; HCT 36.9 % (34.0-46.0); HGB 12.4 gm/dL (11.4-16.0); Lymphocytes # (A) 1.8 k/uL (1.0-4.8); Lymphocytes % (A) 34 %; MCH 30.6 pg (25.0-35.0); MCHC 33.6 g/dL (31.0-37.0); MCV 91.2 fL (80.0-100.0); Mean Platelet Volume 7.4; Monocytes # (A) 0.2 k/uL (0-1.0); Monocytes % (A) 4 %; Neutrophils % (A) 58 %; Platelet Count 230 k/uL (150-450); RBC 4.05 m/uL (3.80-5.40); RDW 13.7 % (11.5-15.5); WBC 5.2 k/uL (3.8-10.6)
[2020-08-04 15:24] LABS: African American GFR (CKD) >90 (>60 ml/min/1.73 sqM); Anion Gap 7 mmol/L; Blood Urea Nitrogen 14 mg/dL (7-17); Calcium 9.4 mg/dL (8.4-10.2); Carbon Dioxide 27 mmol/L (22-30); Chloride 106 mmol/L (98-107); Glucose 93 mg/dL (74-99); Non-African American GFR(CKD) >90 (>60 ml/min/1.73 sqM); Partial Thromboplastin Time 24.2 sec (22.0-30.0); Potassium 3.6 mmol/L (3.5-5.1); Prothrombin Time 10.6 sec (9.0-12.0); Sodium 140 mmol/L (137-145)
== END 2020-08-04 15:36 | disposition home or self-care (01) ==
LOC: EC 12:57
DX: R21 Rash and other nonspecific skin eruption (principal); J45.909 Unspecified asthma, uncomplicated; I11.0 Hypertensive heart disease with heart failure; I50.9 Heart failure, unspecified; E07.9 Disorder of thyroid, unspecified; G40.909 Epilepsy, unspecified, not intractable, without status epilepticus; G47.30 Sleep apnea, unspecified; F32.9 Major depressive disorder, single episode, unspecified; Z79.82 Long term (current) use of aspirin; Z79.890 Hormone replacement therapy; Z79.51 Long term (current) use of inhaled steroids; Z79.899 Other long term (current) drug therapy; Z91.048 Other nonmedicinal substance allergy status; Z88.8 Allergy status to other drugs, medicaments and biological substances; Z88.6 Allergy status to analgesic agent; Z91.040 Latex allergy status; Z88.0 Allergy status to penicillin; Z95.0 Presence of cardiac pacemaker
CPT/HCPCS: 36415; 80048; 85025; 85610; 85730; 99283

== ENCOUNTER → 2020-08-06 | Outpatient (CLI) | payer MEDICARE, OTHER ==
[2020-08-06 13:10] VITALS: BP 134/87; PULSE 69; RESP 18; TEMP 98
--- NOTE | 2020-09-04 12:22 | P.HPBAR ---
Bariatric H&P - History & Physicial H&P Date: 08/06/20 History & Physicial: Visit/CC: follow up Patient initial contact: Initial weight: 137.438 kg Initial weight in pounds: 303.00 Height: 5 ft 7 in Initial BMI: 47.4 Last weight: Current weight: 87.09 kg Current weight in pounds: 192.00 Current BMI: 30.0 [place] body weight (based on NIH guidelines): 61.235 kg Excess body weight loss: 66.0% The patient is a 59 year-old F who presents for Bariatric Assessment. Patient presents today for sleeve gastrectomy follow-up. She's had some complaints of GERD. Past Medical History Past Medical History: Asthma, Chest Pain / Angina, Heart Failure, Hyperlipidemia, Hypertension, Osteoarthritis (OA), Pneumonia, Seizure Disorder, Skin Disorder, Sleep Apnea/CPAP/BIPAP, Thyroid Disorder Additional Past Medical History / Comment(s): See Dr Jennings H&P, LAST KNOWN SEIZURE approximately first of april 2020, developementally disabled, restless leg syndrome, cervical and back pain with pain down bilateral legs, leg weakness , occasional numbness and tingling to bilateral hands and feet,cpap used currently, abdominal pain. (diarrhea)- right after eating, states has had recent falls, persistant itching-cause unknown, sees pain specialist for chronic pain (entire body) History of Any Multi-Drug Resistant Organisms: None Reported Past Surgical History: Adenoidectomy, Bariatric Surgery, Cholecystectomy, Heart Catheterization, Hysterectomy, Pacemaker, Tonsillectomy Additional Past Surgical History / Comment(s): cervical surgery/cage, sleeve gastrectomy 8; DR JENNINGS placed pacemaker on 05/28/2020 - pt unsure as to what type it is. Past Anesthesia/Blood Transfusion Reactions: Previous Problems w/ Anesthesia Additional Past Anesthesia/Blood Transfusion Reaction / Comm: states "was told by my sister's boyfriend that I had trouble breathing and almost during my neck surgery",no hx blood transfusion Date of Last Stent Placement:: 06/03/2014 Type of Cardiac Device: Unknown Device Placement Date:: 05/28/2020 Past Psychological History: Depression Additional Psychological History / Comment(s): Pt states she currently resides with her sister. She is mildly developmentally delayed. 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 Past Drug Use History: None Reported - Past Family History Father Family Medical History: Cancer Additional Family Medical History / Comment(s): stomach Sister(s) Family Medical History: Cancer Additional Family Medical History / Comment(s): stomach CA Mother Family Medical History: No Reported History Additional Family Medical History / Comment(s): . Surgical - Exam Vital Signs Temp Pulse Resp BP 98 F 69 18 134/87 08/06/20 13:06 08/06/20 13:06 08/06/20 13:06 08/06/20 13:06 - General well developed, well nourished, no distress - Eyes PERRL - ENT normal pinna - Neck no masses - Respiratory normal expansion - Cardiovascular Rhythm: regular - Abdomen Abdomen: soft, non tender Bariatric Assessment & Plan Plan: Status post sleeve gastrectomy. Patient's GERD is minimal will be observed. She'll follow-up in 4 weeks. Bariatric Checklist Checklist: Plan: Checklist: EGD: 1. Hiatal hernia: 2. H. Pylori: HgbA1c: Vitamin D: Smoking: Never smoker Primary care physician referral: PCP Barbara Carter=, [employer]=[place] Psychiatry clearance: Cardiology clearance: Sleep study: Diet journal: VTE risk score: VTE risk level: Rehab needs at discharge:
== END ==
LOC: BARWHC3 12:15
PROVIDERS: ATTEND Surgery
DX: Z09 Encounter for follow-up examination after completed treatment for conditions other than malignant neoplasm (principal); K21.9 Gastro-esophageal reflux disease without esophagitis; J45.909 Unspecified asthma, uncomplicated; I10 Essential (primary) hypertension; E78.5 Hyperlipidemia, unspecified; M19.90 Unspecified osteoarthritis, unspecified site; F32.9 Major depressive disorder, single episode, unspecified; Z91.040 Latex allergy status; Z88.6 Allergy status to analgesic agent; Z88.8 Allergy status to other drugs, medicaments and biological substances
CPT/HCPCS: 99211

== ENCOUNTER → 2020-09-03 | Outpatient (CLI) | payer MEDICARE, OTHER ==
[2020-09-03 13:32] VITALS: BP 148/88; PULSE 61; RESP 16; TEMP 98; BMI 29.9
--- NOTE | 2020-09-04 11:27 | P.HPBAR ---
Bariatric H&P - History & Physicial H&P Date: 09/03/20 History & Physicial: Visit/CC: f/u Patient initial contact: Initial weight: 137.438 kg Initial weight in pounds: 303.00 Height: 5 ft 7 in Initial BMI: 47.4 Last weight: Current weight: 86.636 kg Current weight in pounds: 191.00 Current BMI: 29.9 [place] body weight (based on NIH guidelines): 61.235 kg Excess body weight loss: 66.6% The patient is a 59 year-old F who presents for Bariatric Assessment. Patient rents today for sleeve gastrectomy follow-up. She's had some issues with seizures. Her weight has been stable. She does have some mild GERD. Past Medical History Past Medical History: Asthma, Chest Pain / Angina, Heart Failure, Hyperlipidemia, Hypertension, Osteoarthritis (OA), Pneumonia, Seizure Disorder, Skin Disorder, Sleep Apnea/CPAP/BIPAP, Thyroid Disorder Additional Past Medical History / Comment(s): See Dr Jennings H&P, LAST KNOWN SEIZURE approximately first of april 2020, developementally disabled, restless leg syndrome, cervical and back pain with pain down bilateral legs, leg weakness, occasional numbness and tingling to bilateral hands and feet,cpap used currently, abdominal pain. (diarrhea)- right after eating, states has had recent falls, persistant itching-cause unknown, sees pain specialist for chronic pain (entire body) History of Any Multi-Drug Resistant Organisms: None Reported Past Surgical History: Adenoidectomy, Bariatric Surgery, Cholecystectomy, Heart Catheterization, Hysterectomy, Pacemaker, Tonsillectomy Additional Past Surgical History / Comment(s): cervical surgery/cage, sleeve gastrectomy 12-01-18; DR JENNINGS placed pacemaker on 05/28/2020 - pt unsure as to what type it is. Past Anesthesia/Blood Transfusion Reactions: Previous Problems w/ Anesthesia Additional Past Anesthesia/Blood Transfusion Reaction / Comm: states "was told by my sister's boyfriend that I had trouble breathing and almost during my neck surgery",no hx blood transfusion Date of Last Stent Placement:: 06/03/2014 Type of Cardiac Device: Unknown Device Placement Date:: 05/28/2020 Past Psychological History: Depression Additional Psychological History / Comment(s): Pt states she currently resides with her sister. She is mildly developmentally delayed. 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 Past Drug Use History: None Reported - Past Family History Father Family Medical History: Cancer Additional Family Medical History / Comment(s): stomach Sister(s) Family Medical History: Cancer Additional Family Medical History / Comment(s): stomach CA Mother Family Medical History: No Reported History Additional Family Medical History / Comment(s): . Surgical - Exam Vital Signs Temp Pulse Resp BP 98 F 61 16 148/88 09/03/20 13:30 09/03/20 13:30 09/03/20 13:30 09/03/20 13:30 - General well developed, well nourished, no distress - Eyes PERRL - ENT normal pinna - Neck no masses - Respiratory normal expansion - Cardiovascular Rhythm: regular - Abdomen Abdomen: soft, non tender Bariatric Assessment & Plan Plan: Status post sleeve gastrectomy. Patient's GERD is minimal will be observed. She will have labs today. Bariatric Checklist Checklist: Plan: Checklist: EGD: 1. Hiatal hernia: 2. H. Pylori: HgbA1c: Vitamin D: Smoking: Never smoker Primary care physician referral: PCP Barbara Carter=, Salon Assistant=[place] Psychiatry clearance: Cardiology clearance: Sleep study: Diet journal: VTE risk score: VTE risk level: Rehab needs at discharge:
== END ==
LOC: BARWHC3 12:27
PROVIDERS: ATTEND Surgery
DX: Z09 Encounter for follow-up examination after completed treatment for conditions other than malignant neoplasm (principal); K21.9 Gastro-esophageal reflux disease without esophagitis; E78.5 Hyperlipidemia, unspecified; I10 Essential (primary) hypertension; M19.90 Unspecified osteoarthritis, unspecified site; F32.9 Major depressive disorder, single episode, unspecified; J45.909 Unspecified asthma, uncomplicated
CPT/HCPCS: 99211

== ENCOUNTER → 2020-09-11 | Outpatient (CLI) | payer MEDICARE, OTHER ==
[2020-09-11 19:06] LABS: HCT 37.8 % (37.2-46.3); HGB 12.3 g/dL (12.0-15.0); MCH 30.1 pg (27.0-32.0); MCHC 32.5 g/dL (32.0-37.0); MCV 92.4 fL (80.0-97.0); Mean Platelet Volume 11.3 fL (9.5-12.2); Platelet Count 290 X 10*3/uL (140-440); RBC 4.09 X 10*6/uL (4.10-5.20); RDW 12.4 % (11.5-14.5); WBC 6.14 X 10*3/uL (4.50-10.00)
[2020-09-11 21:04] LABS: ALT 13 U/L (8-44); AST 18 U/L (13-35); African American GFR (CKD) 111.5 (60.0-200.0); Albumin/Globulin Ratio 1.95 (1.60-3.17); Alkaline Phosphatase 105 U/L (41-126); BUN/Creat Ratio 21.43 Ratio (12.00-20.00); Calcium 9.3 mg/dL (8.7-10.3); Carbon Dioxide 26.2 mmol/L (21.6-31.8); Chloride 108 mmol/L (96-109); Globulin 2.1 g/dL (1.6-3.3); Glucose 90 mg/dL (70-110); Non-African American GFR(CKD) 96.2 (60.0-200.0); Potassium 3.9 mmol/L (3.5-5.5); Sodium 144 mmol/L (135-145); Total Bilirubin 0.5 mg/dL (0.2-1.2); Total Protein 6.2 g/dL (6.2-8.2)
[2020-09-11 21:13] LABS: Folate, Serum >24.0 ng/mL
[2020-09-11 22:13] LABS: Hemoglobin A1C 4.8 % (4.0-6.0)
== END | disposition home or self-care (01) ==
LOC: LABWHC1 09:58
PROVIDERS: ATTEND Surgery
DX: E88.81 Metabolic syndrome and other insulin resistance (principal); E66.01 Morbid (severe) obesity due to excess calories; E55.9 Vitamin D deficiency, unspecified
CPT/HCPCS: 36415; 80053; 82306; 82607; 82746; 83036; 84425; 85027; 93005

== ENCOUNTER → 2020-09-11 | Outpatient (CLI) | payer MEDICARE, OTHER ==
--- NOTE | 2020-09-11 13:32 | XR ---
Lateral knees HISTORY: Osteoarthritis, pain 3 views of each knee submitted, comparison to the left knee dated 01/04/2016 There is tricompartmental marginal spurring bilaterally. Joint space loss is present in the medial co mpartments, patellofemoral joints especially. Suprapatellar increased density is consistent with join t effusion bilaterally. No fracture or dislocation. IMPRESSION: Osteoarthritis bilaterally.
--- NOTE | 2020-09-11 14:20 | XR ---
Cervical spine HISTORY: Pain, M 50.30, M 51.31 6 views of the cervical spine Oblique images are not optimal for evaluation of the foramina on the right. There is foraminal encroa chment on the left at C4-5, C6-7. Anterior cervical fusion is present at C5-C7, spacing device has be en placed at the site of C6 anterior vertebral body. There is near-anatomic alignment. There is minim al retrolisthesis grade 1 C3-4, C4-5, loss of disc height is greatest at C4-5 with associated spondyl osis. IMPRESSION: Degenerative disc disease, postop changes, foraminal encroachment
--- NOTE | 2020-09-11 14:22 | XR ---
Lumbar spine HISTORY:Pain, M 50.30, M 51.31, lumbar degenerative disc disease 3 views lumbar spine correlated prior exam 05/20/2019 There is a slight spinal curvature as on prior exam. Spondylosis is present at multiple levels, there is associated loss of disc height L5-S1, L3-4. Sclerosis is present in the posterior elements. Lumba r vertebral bodies show preserved height, decreased mineralization. IMPRESSION: Degenerative disc disease and facet arthropathy. Slight spinal curvature, osteopenia.
== END | disposition home or self-care (01) ==
LOC: RADXRWHC 10:48
PROVIDERS: ATTEND Family Medicine
DX: M17.0 Bilateral primary osteoarthritis of knee (principal); M51.36 Other intervertebral disc degeneration, lumbar region; M12.88 Other specific arthropathies, not elsewhere classified, other specified site; M50.30 Other cervical disc degeneration, unspecified cervical region; Z98.1 Arthrodesis status
CPT/HCPCS: 72050; 72100

== ENCOUNTER 2020-09-14 15:20 | Emergency (ER) | payer MEDICARE, OTHER ==
[2020-09-14 16:27] VITALS: TEMP 98.2
--- NOTE | 2020-09-14 17:25 | ED ---
Weakness HPI - General Chief complaint: Weakness Stated complaint: weakness Time Seen by Provider: 09/14/20 17:13 Source: patient Mode of arrival: ambulatory Limitations: no limitations - History of Present Illness Initial comments: This 59-year-old female presents complaining of generalized weakness which is been present for the last 4 days. She denies any recent fevers or chills. There is no shortness of breath. She has occasional slight lower sharp chest pain which is easily reproducible. She also relates that she had 2 syncopal episodes in the last 4 days. She does relate a history of recent hypokalemia at 2.0 at [facility] last month. She is not on any potassium supplementation currently but also denies taking any Lasix. She does relate that she had a loop recorder placed by cardiology several months ago and believes that this testing was negative as well. No other identifiable complaints or modifying factors. - Related Data Home Medications Medication Instructions Recorded Confirmed Aspirin EC [Ecotrin Low Dose] 81 mg PO DAILY 02/22/19 09/03/20 Pantoprazole [Protonix] 40 mg PO DAILY 11/10/19 09/03/20 HYDROcodone/APAP 10-325MG [[place] 1 tab PO Q6H PRN 03/07/20 09/03/20 10-325] Meclizine [Antivert] 12.5 mg PO TID PRN 05/23/20 09/03/20 Gabapentin [Neurontin] 600 mg PO TID 07/09/20 09/03/20 Albuterol Inhaler [Ventolin Hfa 2 puff INHALATION RT-QID PRN 09/14/20 09/14/20 Inhaler] Clobetasol Propionate [Temovate 1 applic TOPICAL BID PRN 09/14/20 09/14/20 0.05% Cream] Cyanocobalamin (Vitamin B-12) 1,000 mcg PO DAILY 09/14/20 09/14/20 [Vitamin B-12] EPINEPHrine (Auto Inject) [Epipen] 0.3 mg IM ONCE PRN 09/14/20 09/14/20 Ergocalciferol [Vitamin D2 (1250 1,250 mcg PO Q7D 09/14/20 09/14/20 Mcg = 11878 Iu)] Lacosamide [Vimpat] 50 mg PO BID 09/14/20 09/14/20 Levothyroxine Sodium 125 mcg PO DAILY 09/14/20 09/14/20 Loratadine 10 mg PO DAILY 09/14/20 09/14/20 Losartan [Cozaar] 50 mg PO BID 09/14/20 09/14/20 Mirabegron [Myrbetriq] 25 mg PO DAILY 09/14/20 09/14/20 Montelukast [Singulair] 10 mg PO HS 09/14/20 09/14/20 Perampanel [Fycompa] See Taper PO HS 09/14/20 09/14/20 levETIRAcetam [Keppra] 1,500 mg PO BID 09/14/20 09/14/20 Allergies Allergy/AdvReac Type Severity Reaction Status Date / Time adhesive Allergy Rash/Hives Verified 09/14/20 16:27 buspirone [From BuSpar] Allergy Itching Verified 09/14/20 16:27 divalproex sodium Allergy Rash/Hives Verified 09/14/20 16:27 [From Depakote] ibuprofen [From Motrin] Allergy Rash/Hives Verified 09/14/20 16:27 latex Allergy Rash/Hives Verified 09/14/20 16:27 Penicillins Allergy Rash/Hives Verified 09/14/20 16:27 topiramate [From Topamax] Allergy Swelling Verified 09/14/20 16:27 Review of Systems ROS Statement: Those systems with pertinent positive or pertinent negative responses have been documented in the HPI. ROS Other: All systems not noted in ROS Statement are negative. Past Medical History Past Medical History: Asthma, Chest Pain / Angina, Heart Failure, Hyperlipidemia, Hypertension, Osteoarthritis (OA), Pneumonia, Seizure Disorder, Skin Disorder, Sleep Apnea/CPAP/BIPAP, Thyroid Disorder Additional Past Medical History / Comment(s): See Dr Michaela Downing&Baljinder, LAST KNOWN SEIZURE approximately first of april 2020, developementally disabled, restless leg syndrome, cervical and back pain with pain down bilateral legs, leg weakness, occasional numbness and tingling to bilateral hands and feet,cpap used currently, abdominal pain. (diarrhea)- right after eating, states has had recent falls, persistant itching-cause unknown, sees pain specialist for chronic pain (entire body) History of Any Multi-Drug Resistant Organisms: None Reported Past Surgical History: Adenoidectomy, Bariatric Surgery, Cholecystectomy, Heart Catheterization, Hysterectomy, Pacemaker, Tonsillectomy Additional Past Surgical History / Comment(s): cervical surgery/cage, sleeve gastrectomy 12-01-18; DR MOREL placed pacemaker on 05/28/2020 - pt unsure as to what type it is. Past Anesthesia/Blood Transfusion Reactions: Previous Problems w/ Anesthesia Additional Past Anesthesia/Blood Transfusion Reaction / Comment(s): states "was told by my sister's boyfriend that I had trouble breathing and almost during my neck surgery",no hx blood transfusion Date of Last Stent Placement:: 06/03/2014 Type of Cardiac Device: Unknown Device Placement Date:: 05/28/2020 Past Psychological History: Depression Smoking Status: Never smoker Past Alcohol Use History: None Reported Past Drug Use History: None Reported - Past Family History Father Family Medical History: Cancer Additional Family Medical History / Comment(s): stomach Sister(s) Family Medical History: Cancer Additional Family Medical History / Comment(s): stomach CA Mother Family Medical History: No Reported History Additional Family Medical History / Comment(s): . General Exam - General Exam Comments Initial Comments: GENERAL: The patient is well nourished and well hydrated. VITAL SIGNS: Heart rate, blood pressure, respiratory rate reviewed as recorded in nurse's notes. EYES: Pupils are round and reactive. Extraocular movements are intact. No conjunctival / lid redness or swelling. ENT: No external evidence of injury, swelling, or ecchymosis. Airway is patent. Throat is clear. NECK: Nontender. No swelling or evidence of injury. No subcutaneous emphysema. Trachea is midline. No thyroid mass. HEART: Regular rate and rhythm. Good peripheral pulses. LUNGS/CHEST: Breath sounds clear and equal bilaterally. No rales, rhonchi, or wheezes. Mild tenderness noted to the lower chest wall at midline ABDOMEN: Abdomen soft without tenderness. No palpable masses or organomegaly. No peritoneal signs. No abdominal wall swelling or ecchymosis. EXTREMITIES: No extremity tenderness. Normal muscle tone and function. No thoracolumbar tenderness. NEUROLOGIC: Sensation is grossly intact. Cranial nerve exam reveals face is symmetrical, tongue is midline, speech is clear. SKIN: No abrasions or ecchymosis is noted. No induration or masses noted. PSYCHIATRIC: Alert and oriented. Appropriate behavior and judgment. Limitations: no limitations Course Vital Signs 09/14/20 16:24 Temperature 98.2 F Pulse Rate 67 Respiratory 20 Rate Blood Pressure 125/81 O2 Sat by Pulse 100 Oximetry Medical Decision Making - Medical Decision Making The patient was seen and examined. All diagnostics were reviewed. The patient had an EKG which shows a sinus bradycardia at a rate of 58. No acute ST-T wave changes are identified. The NH intervals 182, QRS duration is 92, and the QTC intervals 435. The chest x-ray did not show any acute processes. The laboratory overall is fairly unremarkable. The exact cause of her weakness is not definitively determined. Her TSH was slightly low so she may need her thyroid medication adjusted and she is informed of this and will follow up with her doctor in this regard. She relates that the syncopal episode so to have been somewhat chronic for her and she's been worked up by cardiology in this regard. Her lower chest pain is clearly reproducible and is not felt as though it is cardiac in nature. At this time, it is felt as though she stable for discharge home. Return parameters are discussed. - Lab Data Result diagrams: 09/14/20 17:46 09/14/20 17:46 Lab Results 09/14/20 09/14/20 09/14/20 Range/Units 17:46 17:46 17:46 WBC 7.8 (3.8-10.6) k/uL RBC 4.01 (3.80-5.40) m/uL Hgb 12.5 (11.4-16.0) gm/dL Hct 35.8 (34.0-46.0) % MCV 89.3 (80.0-100.0) fL MCH 31.3 (25.0-35.0) pg MCHC 35.0 (31.0-37.0) g/dL RDW 13.0 (11.5-15.5) % Plt Count 226 (150-450) k/uL MPV 7.5 Neutrophils % 64 % Lymphocytes % 28 % Monocytes % 5 % Eosinophils % 2 % Basophils % 0 % Neutrophils # 5.0 (1.3-7.7) k/uL Lymphocytes # 2.2 (1.0-4.8) k/uL Monocytes # 0.4 (0-1.0) k/uL Eosinophils # 0.1 (0-0.7) k/uL Basophils # 0.0 (0-0.2) k/uL PT 11.4 (9.0-12.0) sec INR 1.1 (<1.2) APTT 25.1 (22.0-30.0) sec Sodium (137-145) mmol/L Potassium (3.5-5.1) mmol/L Chloride (98-107) mmol/L Carbon Dioxide (22-30) mmol/L Anion Gap mmol/L BUN (7-17) mg/dL Creatinine (0.52-1.04) mg/dL Est GFR (CKD-EPI)AfAm (>60 ml/min/1.73 sqM) Est GFR (CKD-EPI)NonAf (>60 ml/min/1.73 sqM) Glucose (74-99) mg/dL Plasma Lactic Acid Kd (0.7-2.0) mmol/L Calcium (8.4-10.2) mg/dL Phosphorus (2.5-4.5) mg/dL Magnesium (1.6-2.3) mg/dL Total Bilirubin (0.2-1.3) mg/dL AST (14-36) U/L ALT (4-34) U/L Alkaline Phosphatase (38-126) U/L Troponin I (0.000-0.034) ng/mL Total Protein (6.3-8.2) g/dL Albumin (3.5-5.0) g/dL TSH (0.465-4.680) mIU/L Urine Color Yellow Urine Appearance Clear (Clear) Urine pH 5.0 (5.0-8.0) Ur Specific [place] 1.028 (1.001-1.035) Urine Protein Negative (Negative) Urine Glucose (UA) Negative (Negative) Urine Ketones Negative (Negative) Urine Blood Negative (Negative) Urine Nitrite Negative (Negative) Urine Bilirubin Negative (Negative) Urine Urobilinogen 2.0 (<2.0) mg/dL Ur Leukocyte Esterase Negative (Negative) 09/14/20 09/14/20 09/14/20 Range/Units 17:46 17:46 17:46 WBC (3.8-10.6) k/uL RBC (3.80-5.40) m/uL Hgb (11.4-16.0) gm/dL Hct (34.0-46.0) % MCV (80.0-100.0) fL MCH (25.0-35.0) pg MCHC (31.0-37.0) g/dL RDW (11.5-15.5) % Plt Count (150-450) k/uL MPV Neutrophils % % Lymphocytes % % Monocytes % % Eosinophils % % Basophils % % Neutrophils # (1.3-7.7) k/uL Lymphocytes # (1.0-4.8) k/uL Monocytes # (0-1.0) k/uL Eosinophils # (0-0.7) k/uL Basophils # (0-0.2) k/uL PT (9.0-12.0) sec INR (<1.2) APTT (22.0-30.0) sec Sodium 140 (137-145) mmol/L Potassium 3.8 (3.5-5.1) mmol/L Chloride 108 H (98-107) mmol/L Carbon Dioxide 27 (22-30) mmol/L Anion Gap 5 mmol/L BUN 17 (7-17) mg/dL Creatinine 0.52 (0.52-1.04) mg/dL Est GFR (CKD-EPI)AfAm >90 (>60 ml/min/1.73 sqM) Est GFR (CKD-EPI)NonAf >90 (>60 ml/min/1.73 sqM) Glucose 101 H (74-99) mg/dL Plasma Lactic Acid Kd 0.7 (0.7-2.0) mmol/L Calcium 9.2 (8.4-10.2) mg/dL Phosphorus 3.9 (2.5-4.5) mg/dL Magnesium 1.9 (1.6-2.3) mg/dL Total Bilirubin 0.1 L (0.2-1.3) mg/dL AST 16 (14-36) U/L ALT 7 (4-34) U/L Alkaline Phosphatase 93 (38-126) U/L Troponin I <0.012 (0.000-0.034) ng/mL Total Protein 6.1 L (6.3-8.2) g/dL Albumin 3.7 (3.5-5.0) g/dL TSH <0.015 L (0.465-4.680) mIU/L Urine Color Urine Appearance (Clear) Urine pH (5.0-8.0) Ur Specific [place] (1.001-1.035) Urine Protein (Negative) Urine Glucose (UA) (Negative) Urine Ketones (Negative) Urine Blood (Negative) Urine Nitrite (Negative) Urine Bilirubin (Negative) Urine Urobilinogen (<2.0) mg/dL Ur Leukocyte Esterase (Negative) Disposition Clinical Impression: Weakness, Syncope, Chest wall pain Disposition: HOME SELF-CARE Condition: Good Instructions (If sedation given, give patient instructions): Chest Wall Pain (ED), Weakness (ED), Syncope (ED) Is patient prescribed a controlled substance at d/c from ED?: No Referrals: Júnior Hancock MD [Primary Care Provider] - 1-2 days Time of Disposition: 19:43
[2020-09-14 17:58] LABS: Basophils % (A) 0 %; Eosinophils # (A) 0.1 k/uL (0-0.7); Eosinophils % (A) 2 %; HCT 35.8 % (34.0-46.0); HGB 12.5 gm/dL (11.4-16.0); Lymphocytes # (A) 2.2 k/uL (1.0-4.8); Lymphocytes % (A) 28 %; MCH 31.3 pg (25.0-35.0); MCV 89.3 fL (80.0-100.0); Mean Platelet Volume 7.5; Monocytes # (A) 0.4 k/uL (0-1.0); Monocytes % (A) 5 %; Neutrophils % (A) 64 %; Platelet Count 226 k/uL (150-450); RBC 4.01 m/uL (3.80-5.40); WBC 7.8 k/uL (3.8-10.6)
[2020-09-14 18:07] LABS: ALT 7 U/L (4-34); AST 16 U/L (14-36); African American GFR (CKD) >90 (>60 ml/min/1.73 sqM); Albumin 3.7 g/dL (3.5-5.0); Alkaline Phosphatase 93 U/L (38-126); Anion Gap 5 mmol/L; Blood Urea Nitrogen 17 mg/dL (7-17); Calcium 9.2 mg/dL (8.4-10.2); Carbon Dioxide 27 mmol/L (22-30); Chloride 108 mmol/L (98-107); Glucose 101 mg/dL (74-99); Magnesium 1.9 mg/dL (1.6-2.3); Non-African American GFR(CKD) >90 (>60 ml/min/1.73 sqM); Phosphorus 3.9 mg/dL (2.5-4.5); Potassium 3.8 mmol/L (3.5-5.1); Sodium 140 mmol/L (137-145); Total Bilirubin 0.1 mg/dL (0.2-1.3); Total Protein 6.1 g/dL (6.3-8.2)
[2020-09-14 18:09] LABS: Appearance,Urine Clear (Clear); Bilirubin,Urine Negative (Negative); Blood,Urine Negative (Negative); Color,Urine Yellow; Glucose,Urine (UA) Negative (Negative); Ketones,Urine Negative (Negative); Leukocyte Esterase,Urine Negative (Negative); Nitrite,Urine Negative (Negative); Protein,Urine Negative (Negative); Specific Gravity,Urine 1.028 (1.001-1.035)
[2020-09-14 18:14] LABS: INR 1.1 (<1.2); Partial Thromboplastin Time 25.1 sec (22.0-30.0); Prothrombin Time 11.4 sec (9.0-12.0)
--- NOTE | 2020-09-14 19:08 | XR ---
EXAMINATION TYPE: XR chest 2V DATE OF EXAM: 09/14/2020 COMPARISON: 03/07/2020 HISTORY: Weakness TECHNIQUE: Frontal and lateral views of the chest are obtained. FINDINGS: There is no focal air space opacity, pleural effusion, or pneumothorax seen. The cardiac silhouette size is within normal limits. The osseous structures are intact. IMPRESSION: No acute cardiopulmonary process.
[2020-09-14 19:57] VITALS: BP 146/86; PULSE 61; RESP 16
== END 2020-09-14 20:01 | disposition home or self-care (01) ==
LOC: EC 15:20
DX: R53.1 Weakness (principal); R55 Syncope and collapse; R07.89 Other chest pain; G40.909 Epilepsy, unspecified, not intractable, without status epilepticus; I11.0 Hypertensive heart disease with heart failure; I50.9 Heart failure, unspecified; J45.909 Unspecified asthma, uncomplicated; M19.90 Unspecified osteoarthritis, unspecified site; G25.81 Restless legs syndrome; Z79.82 Long term (current) use of aspirin; Z79.899 Other long term (current) drug therapy; Z88.0 Allergy status to penicillin; Z88.6 Allergy status to analgesic agent; Z91.040 Latex allergy status; Z95.0 Presence of cardiac pacemaker
CPT/HCPCS: 36415; 71046; 80053; 81003; 83605; 83735; 84100; 84443; 84484; 85025; 85610; 85730; 93005; 99285

== ENCOUNTER → 2020-11-05 | Outpatient (CLI) | payer MEDICARE, OTHER ==
[2020-11-05 13:47] VITALS: BP 166/79; PULSE 68; RESP 18; TEMP 98.1; BMI 29.4
--- NOTE | 2020-11-05 16:25 | P.HPBAR ---
Bariatric H&P - History & Physicial H&P Date: 11/05/20 History & Physicial: Visit/CC: follow up Patient initial contact: Initial weight: 137.438 kg Initial weight in pounds: 303.00 Height: 5 ft 7 in Initial BMI: 47.4 Last weight: Current weight: 85.275 kg Current weight in pounds: 188.00 Current BMI: 29.4 [place] body weight (based on NIH guidelines): 61.235 kg Excess body weight loss: 68.4% The patient is a 60 year-old F who presents for Bariatric Assessment. Patient presents today for sleeve gastrectomy follow-up. She states she feels better. Her weight is remain stable. She has had some mild GERD. She's recently released from a halfway due to her seizures Past Medical History Past Medical History: Asthma, Chest Pain / Angina, Heart Failure, Hyperlipidemia, Hypertension, Osteoarthritis (OA), Pneumonia, Seizure Disorder, Skin Disorder, Sleep Apnea/CPAP/BIPAP, Thyroid Disorder Additional Past Medical History / Comment(s): See Dr Jennings H&P, LAST KNOWN SEIZURE approximately first of april 2020, developementally disabled, restless leg syndrome, cervical and back pain with pain down bilateral legs, leg weakness, occasional numbness and tingling to bilateral hands and feet,cpap used currently, abdominal pain. (diarrhea)- right after eating, states has had recent falls, persistant itching-cause unknown, sees pain specialist for chronic pain (entire body) History of Any Multi-Drug Resistant Organisms: None Reported Past Surgical History: Adenoidectomy, Bariatric Surgery, Cholecystectomy, Heart Catheterization, Hysterectomy, Pacemaker, Tonsillectomy Additional Past Surgical History / Comment(s): cervical surgery/cage, sleeve gastrectomy 12-01-18; DR JENNINGS placed pacemaker on 05/28/2020 - pt unsure as to what type it is. Past Anesthesia/Blood Transfusion Reactions: Previous Problems w/ Anesthesia Additional Past Anesthesia/Blood Transfusion Reaction / Comm: states "was told by my sister's boyfriend that I had trouble breathing and almost during my neck surgery",no hx blood transfusion Date of Last Stent Placement:: 06/03/2014 Type of Cardiac Device: Unknown Device Placement Date:: 05/28/2020 Past Psychological History: Depression Additional Psychological History / Comment(s): Pt states she currently resides with her sister. She is mildly developmentally delayed. 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 Past Drug Use History: None Reported - Past Family History Father Family Medical History: Cancer Additional Family Medical History / Comment(s): stomach Sister(s) Family Medical History: Cancer Additional Family Medical History / Comment(s): stomach CA Mother Family Medical History: No Reported History Additional Family Medical History / Comment(s): . Surgical - Exam Vital Signs Temp Pulse Resp BP 98.1 F 68 18 166/79 11/05/20 13:45 11/05/20 13:45 11/05/20 13:45 11/05/20 13:45 - General well developed, well nourished, no distress - Eyes PERRL - ENT normal pinna - Neck no masses - Respiratory normal expansion - Cardiovascular Rhythm: regular - Abdomen Abdomen: soft, non tender Bariatric Assessment & Plan Plan: Status post sleeve gastrectomy. Patient's crit is minimal observed. She'll follow-up in 4 weeks. Bariatric Checklist Checklist: Plan: Checklist: EGD: 1. Hiatal hernia: 2. H. Pylori: HgbA1c: Vitamin D: Smoking: Never smoker Primary care physician referral: PCP Barbara Carter=, [place] Psychiatry clearance: Cardiology clearance: Sleep study: Diet journal: VTE risk score: VTE risk level: Rehab needs at discharge:
== END ==
LOC: BARWHC3 13:03
PROVIDERS: ATTEND Surgery
DX: Z09 Encounter for follow-up examination after completed treatment for conditions other than malignant neoplasm (principal); K21.9 Gastro-esophageal reflux disease without esophagitis; J45.909 Unspecified asthma, uncomplicated; E78.5 Hyperlipidemia, unspecified; I10 Essential (primary) hypertension; M19.90 Unspecified osteoarthritis, unspecified site; Z98.84 Bariatric surgery status; F32.9 Major depressive disorder, single episode, unspecified; Z91.048 Other nonmedicinal substance allergy status; Z91.040 Latex allergy status; Z88.0 Allergy status to penicillin; Z88.6 Allergy status to analgesic agent; Z88.8 Allergy status to other drugs, medicaments and biological substances
CPT/HCPCS: 99211

== ENCOUNTER → 2020-12-03 | Outpatient (CLI) | payer MEDICARE, OTHER ==
[2020-12-03 12:59] VITALS: BP 135/89; PULSE 50; RESP 16; TEMP 98.2; BMI 29.6
[2020-12-03 14:46] LABS: HCT 36.5 % (34.0-46.0); HGB 12.6 gm/dL (11.4-16.0); MCH 32.9 pg (25.0-35.0); MCHC 34.4 g/dL (31.0-37.0); MCV 95.7 fL (80.0-100.0); Mean Platelet Volume 7.8; Platelet Count 262 k/uL (150-450); RBC 3.81 m/uL (3.80-5.40); RDW 13.7 % (11.5-15.5); WBC 5.2 k/uL (3.8-10.6)
[2020-12-04 01:21] LABS: African American GFR (CKD) 116.4 (60.0-200.0); Albumin 4.1 g/dL (3.80-4.90); Albumin/Globulin Ratio 1.71 (1.60-3.17); Anion Gap 7.6 mmol/L (4.00-12.00); Calcium 9.2 mg/dL (8.7-10.3); Carbon Dioxide 31.4 mmol/L (21.6-31.8); Globulin 2.4 g/dL (1.6-3.3); Non-African American GFR(CKD) 100.5 (60.0-200.0); Potassium 3.4 mmol/L (3.5-5.5); Total Bilirubin 0.4 mg/dL (0.2-1.2); Total Protein 6.5 g/dL (6.2-8.2)
--- NOTE | 2020-12-19 12:38 | P.HPBAR ---
Bariatric H&P - History & Physicial H&P Date: 12/03/20 History & Physicial: Visit/CC: f/u Patient initial contact: Initial weight: 137.438 kg Initial weight in pounds: 303.00 Height: 5 ft 7 in Initial BMI: 47.4 Last weight: Current weight: 85.729 kg Current weight in pounds: 189.00 Current BMI: 29.6 [place] body weight (based on NIH guidelines): 61.235 kg Excess body weight loss: 67.8% The patient is a 60 year-old F who presents for Bariatric Assessment. Patient presents today for [place] fall. She's had some mild GERD. She's had some intermittent dysphagia. Past Medical History Past Medical History: Asthma, Chest Pain / Angina, Heart Failure, Hyperlipidemia, Hypertension, Osteoarthritis (OA), Pneumonia, Seizure Disorder, Skin Disorder, Sleep Apnea/CPAP/BIPAP, Thyroid Disorder Additional Past Medical History / Comment(s): See Dr Jennings H&P, LAST KNOWN SEIZURE approximately first of april 2020, developementally disabled, restless leg syndrome, cervical and back pain with pain down bilateral legs, leg weakness, occasional numbness and tingling to bilateral hands and feet,cpap used currently, abdominal pain. (diarrhea)- right after eating, states has had recent falls, persistant itching-cause unknown, sees pain specialist for chronic pain (entire body) History of Any Multi-Drug Resistant Organisms: None Reported Past Surgical History: Adenoidectomy, Bariatric Surgery, Cholecystectomy, Heart Catheterization, Hysterectomy, Pacemaker, Tonsillectomy Additional Past Surgical History / Comment(s): cervical surgery/cage, sleeve gastrectomy 12-01-18; DR JENNINGS placed pacemaker on 05/28/2020 - pt unsure as to what type it is. Past Anesthesia/Blood Transfusion Reactions: Previous Problems w/ Anesthesia Additional Past Anesthesia/Blood Transfusion Reaction / Comm: states "was told by my sister's boyfriend that I had trouble breathing and almost during my neck surgery",no hx blood transfusion Date of Last Stent Placement:: 06/03/2014 Type of Cardiac Device: Unknown Device Placement Date:: 05/28/2020 Smoking Status: Never smoker - Past Family History Father Family Medical History: Cancer Additional Family Medical History / Comment(s): stomach Sister(s) Family Medical History: Cancer Additional Family Medical History / Comment(s): stomach CA Mother Family Medical History: No Reported History Additional Family Medical History / Comment(s): . Surgical - Exam Vital Signs Temp Pulse Resp BP 98.2 F 50 L 16 135/89 12/03/20 12:57 12/03/20 12:57 12/03/20 12:57 12/03/20 12:57 - General well developed, well nourished, no distress - Eyes PERRL - ENT normal pinna - Neck no masses - Respiratory normal expansion - Cardiovascular Rhythm: regular - Abdomen Abdomen: soft, non tender Results - Labs 12/03/20 14:08 12/03/20 14:08 Bariatric Assessment & Plan Plan: Best was sleeve gastrectomy. Patient's. Minimal we'll observe. She'll follow- up in 4 weeks. Bariatric Checklist Checklist: Plan: Checklist: EGD: 1. Hiatal hernia: 2. H. Pylori: HgbA1c: Vitamin D: Smoking: Never smoker Primary care physician referral: PCP Barbara Carter=, [facility]o logist[facility] Psych[facility] clearance: Cardiology clearance: Sleep study: Diet journal: VTE risk score: VTE risk level: Rehab needs at discharge:
== END | disposition home or self-care (01) ==
LOC: BARWHC3 12:13
PROVIDERS: ATTEND Surgery
DX: E66.01 Morbid (severe) obesity due to excess calories (principal); Z68.29 Body mass index [BMI] 29.0-29.9, adult
CPT/HCPCS: 84425; 80053; 85027; 36415; G0463; 99211

== ENCOUNTER → 2020-12-04 | Outpatient (CLI) | payer MEDICARE, OTHER ==
--- NOTE | 2020-12-04 14:32 | BD ---
EXAMINATION TYPE: Axial Bone Density DATE OF EXAM: 12/04/2020 COMPARISON: NONE CLINICAL HISTORY: Osteoporosis Height: 65.5 Weight: 189.9 FRAX RISK QUESTIONS: Alcohol (3 or more units per day): no Family History (Parent hip fracture): no Glucocorticoids (More than 3mos): no (Ex: prednisone, prednisolone, methylprednisolone, dexamethasone, and hydrocortisone). History of Fracture in Adulthood: yes Secondary Osteoporosis: 1. Type 1 Diabetes: no 2. Hyperthyroidism: no 3. Menopause before 45: yes 4. Malnutrition: no 5. Chronic liver disease: no Rheumatoid Arthritis: no Current Tobacco Use: no RISK FACTORS HISTORY OF: Surgery to Spine/Hip(right/left)/Wrist (right/left): no Family History of Osteoporosis: no Active: no Diet low in dairy products/other sources of calcium: yes Postmenopausal woman: hysterectomy at age 22 Lost more than 2 inches in height since high school: no MEDICATIONS: Additional History: EXAM MEASUREMENTS: Bone mineral densitometry was performed using the [employer]. Bone mineral density as measured about the Lumbar spine is: ----- L1-L4(G/cm2): 1.055 T Score Values are as follows: ----- L2: -1.7 ----- L3: -0.9 ----- L4: 0.1 ----- L1-L4: -1.0 Bone mineral density : baseline Bone mineral density about the R hip (g/cm2): 0.720 Bone mineral density about the L hip (g/cm2): 0.691 T Score values are as follows: -----R Neck: -2.3 -----L Neck: -2.5 -----R Total: -2.1 -----L Total: -2.0 Bone mineral density : baseline IMPRESSION: Osteoporosis (T Score less than -2.5). There is increased fracture risk and therapy is usually indicated based on age. Re-Screen 1-2 years. NOTE: T-SCORE=SD OF THE YOUNG ADULT MEAN.
--- NOTE | 2020-12-05 11:14 | MM ---
Reason for exam: screening (asymptomatic). Last mammogram was performed 1 year and 6 months ago. History: Patient is postmenopausal and is nulliparous. Family history of unknown cancer in sister at age 50 and breast cancer in aunt. Took hormonal contraceptives for 2 months. Physical Findings: A clinical breast exam by your physician is recommended on an annual basis and results should be correlated with mammographic findings. MG 3D Screening Mammo W/Cad Bilateral CC and MLO view(s) were taken. Prior study comparison: June 10, 2019, bilateral MG 3d screening mammo w/cad. November 01, 2015, bilateral MG 3d screening mammo w/cad. There are scattered fibroglandular densities. Finding: There is a stable typically benign equal density (isodense), indistinct round mass located 1.5 cm from the nipple in the subareolar position of the right breast. No significant changes in finding since June 10, 2019 and November 01, 2015. ASSESSMENT: Benign, BI-RAD 2 RECOMMENDATION: Routine screening mammogram of both breasts in 1 year.
== END | disposition home or self-care (01) ==
LOC: RADMAMWWP 11:28
PROVIDERS: ATTEND Family Medicine
DX: Z08 Encounter for follow-up examination after completed treatment for malignant neoplasm (principal); M81.0 Age-related osteoporosis without current pathological fracture; Z80.3 Family history of malignant neoplasm of breast
CPT/HCPCS: 77063; 77067; 77080

== ENCOUNTER → 2021-01-07 | Outpatient (CLI) | payer MEDICARE, OTHER ==
[2021-01-07 13:12] VITALS: BP 138/89; PULSE 60; RESP 18; TEMP 98.3; BMI 29.6
--- NOTE | 2021-01-22 10:33 | P.HPBAR ---
Bariatric H&P - History & Physicial H&P Date: 01/07/21 History & Physicial: Visit/CC: follow up Patient initial contact: Initial weight: 137.438 kg Initial weight in pounds: 303.00 Height: 5 ft 7 in Initial BMI: 47.4 Last weight: Current weight: 85.729 kg Current weight in pounds: 189.00 Current BMI: 29.6 [place] body weight (based on NIH guidelines): 61.235 kg Excess body weight loss: 67.8% The patient is a 60 year-old F who presents for Bariatric Assessment. Patient presents today for bariatric follow. She's had some minimal GERD. She denies any dysphagia. Past Medical History Past Medical History: Asthma, Chest Pain / Angina, Heart Failure, Hyperlipidemia, Hypertension, Osteoarthritis (OA), Pneumonia, Seizure Disorder, Skin Disorder, Sleep Apnea/CPAP/BIPAP, Thyroid Disorder Additional Past Medical History / Comment(s): See Dr Jennings HAmberP, LAST KNOWN SEIZURE approximately first of april 2020, developementally disabled, restless leg syndrome, cervical and back pain with pain down bilateral legs, leg weakness, occasional numbness and tingling to bilateral hands and feet,cpap used currently, abdominal pain. (diarrhea)- right after eating, states has had recent falls, persistant itching-cause unknown, sees pain specialist for chronic pain (entire body). last seizure January 01, 2021. History of Any Multi-Drug Resistant Organisms: None Reported Past Surgical History: Adenoidectomy, Bariatric Surgery, Cholecystectomy, Heart Catheterization, Hysterectomy, Pacemaker, Tonsillectomy Additional Past Surgical History / Comment(s): cervical surgery/cage, sleeve gastrectomy 12-01-18; DR JENNINGS placed pacemaker on 05/28/2020 - pt unsure as to what type it is. Past Anesthesia/Blood Transfusion Reactions: Previous Problems w/ Anesthesia Additional Past Anesthesia/Blood Transfusion Reaction / Comm: states "was told by my sister's boyfriend that I had trouble breathing and almost during my neck surgery",no hx blood transfusion Date of Last Stent Placement:: 06/03/2014 Type of Cardiac Device: Unknown Device Placement Date:: 05/28/2020 Past Psychological History: Depression Additional Psychological History / Comment(s): Pt states she currently resides with her sister. She is mildly developmentally delayed. 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 Past Drug Use History: None Reported - Past Family History Father Family Medical History: Cancer Additional Family Medical History / Comment(s): stomach Sister(s) Family Medical History: Cancer Additional Family Medical History / Comment(s): stomach CA Mother Family Medical History: No Reported History Additional Family Medical History / Comment(s): . Surgical - Exam Vital Signs Temp Pulse Resp BP 98.3 F 60 18 138/89 01/07/21 13:05 01/07/21 13:05 01/07/21 13:05 01/07/21 13:05 - General well developed, well nourished, no distress - Eyes PERRL - ENT normal pinna - Neck no masses - Respiratory normal expansion - Cardiovascular Rhythm: regular - Abdomen Abdomen: soft, non tender Bariatric Assessment & Plan Plan: Status post sleeve history. Patient is minimal will be observed. She'll follow-up in 4 weeks. Bariatric Checklist Checklist: Plan: Checklist: EGD: 1. Hiatal hernia: 2. H. Pylori: HgbA1c: Vitamin D: Smoking: Never smoker Primary care physician referral: PCP Barbara Carter=, [facility]=[place] Psych[facility] clearance: Cardiology clearance: Sleep study: Diet journal: VTE risk score: VTE risk level: Rehab needs at discharge:
== END ==
LOC: BARWHC3 12:09
PROVIDERS: ATTEND Surgery
DX: Z09 Encounter for follow-up examination after completed treatment for conditions other than malignant neoplasm (principal); K21.9 Gastro-esophageal reflux disease without esophagitis; J45.909 Unspecified asthma, uncomplicated; I11.0 Hypertensive heart disease with heart failure; I50.9 Heart failure, unspecified; E78.5 Hyperlipidemia, unspecified; M19.90 Unspecified osteoarthritis, unspecified site; G40.909 Epilepsy, unspecified, not intractable, without status epilepticus; Z98.84 Bariatric surgery status; Z91.048 Other nonmedicinal substance allergy status; Z91.030 Bee allergy status; Z88.6 Allergy status to analgesic agent; Z91.040 Latex allergy status; Z88.0 Allergy status to penicillin
CPT/HCPCS: 99211

== ENCOUNTER 2021-01-08 13:00 | Emergency (ER) | payer MEDICARE, OTHER ==
[2021-01-08 13:15] VITALS: TEMP 98.4
--- NOTE | 2021-01-08 13:42 | ED ---
General Adult HPI - General Chief complaint: Arrhythmia/Palpitations Stated complaint: AFib & hypertension Time Seen by Provider: 01/08/21 13:10 Source: patient, RN notes reviewed, old records reviewed Mode of arrival: wheelchair Limitations: no limitations - History of Present Illness Initial comments: this is a 60-year-old female presents emergency department stating that she had a nurse came over to check her out today because she did not feel well. She states is been ongoing for about a week. Patient denies any area of pain. Patient denies headache patient denies numbness weakness. Patient denies lightheadedness dizziness. Patient does complain of overall weakness but not at that point which she might fall over here patient states she has no chest pain or palpitations no difficulty breathing shortness of breath. Patient denies any recent fever chills or cough. Patient has any nausea vomiting diarrhea. Patient denies abdominal pain. Patient denies any injury or fall. - Related Data Home Medications Medication Instructions Recorded Confirmed Aspirin EC [Ecotrin Low Dose] 81 mg PO DAILY 02/22/19 01/08/21 Pantoprazole [Protonix] 40 mg PO DAILY 11/10/19 01/08/21 HYDROcodone/APAP 10-325MG [[place] 1 tab PO QID PRN 03/07/20 01/08/21 10-325] Gabapentin [Neurontin] 600 mg PO TID 07/09/20 01/08/21 Albuterol Inhaler [Ventolin Hfa 2 puff INHALATION RT-QID PRN 09/14/20 01/08/21 Inhaler] Clobetasol Propionate [Temovate 1 applic TOPICAL BID PRN 09/14/20 01/08/21 0.05% Cream] Cyanocobalamin (Vitamin B-12) 1,000 mcg PO DAILY 09/14/20 01/08/21 [Vitamin B-12] EPINEPHrine (Auto Inject) [Epipen] 0.3 mg IM ONCE PRN 09/14/20 01/08/21 Ergocalciferol [Vitamin D2 (1250 1,250 mcg PO Q7D 09/14/20 01/08/21 Mcg = 04050 Iu)] Lacosamide [Vimpat] 50 mg PO BID 09/14/20 01/08/21 Levothyroxine Sodium 125 mcg PO DAILY 09/14/20 01/08/21 Loratadine 10 mg PO DAILY 09/14/20 01/08/21 Losartan [Cozaar] 50 mg PO BID 09/14/20 01/08/21 Montelukast [Singulair] 10 mg PO HS 09/14/20 01/08/21 levETIRAcetam [Keppra] 1,500 mg PO BID 09/14/20 01/08/21 Alendronate Sodium 70 mg PO Q7D 01/08/21 01/08/21 Potassium Chloride [Potassium 20 meq PO DAILY 01/08/21 01/08/21 Chloride ER] Allergies Allergy/AdvReac Type Severity Reaction Status Date / Time adhesive Allergy Rash/Hives Verified 01/08/21 13:11 bee venom protein (honey bee) Allergy Anaphylaxis Verified 01/08/21 13:11 buspirone [From BuSpar] Allergy Itching Verified 01/08/21 13:11 divalproex sodium Allergy Rash/Hives Verified 01/08/21 13:11 [From Depakote] ibuprofen [From Motrin] Allergy Rash/Hives Verified 01/08/21 13:11 latex Allergy Rash/Hives Verified 01/08/21 13:11 Penicillins Allergy Rash/Hives Verified 01/08/21 13:11 topiramate [From Topamax] Allergy Swelling Verified 01/08/21 13:11 Review of Systems ROS Statement: Those systems with pertinent positive or pertinent negative responses have been documented in the HPI. ROS Other: All systems not noted in ROS Statement are negative. Past Medical History Past Medical History: Asthma, Chest Pain / Angina, Heart Failure, Hyperlipidemia, Hypertension, Osteoarthritis (OA), Pneumonia, Seizure Disorder, Skin Disorder, Sleep Apnea/CPAP/BIPAP, Thyroid Disorder Additional Past Medical History / Comment(s): See Dr Michaela Sinha, LAST KNOWN SEIZURE approximately first of april 2020, developementally disabled, restless leg syndrome, cervical and back pain with pain down bilateral legs, leg weakness, occasional numbness and tingling to bilateral hands and feet,cpap used currently, abdominal pain. (diarrhea)- right after eating, states has had recent falls, persistant itching-cause unknown, sees pain specialist for chronic pain (entire body). last seizure January 01, 2021. History of Any Multi-Drug Resistant Organisms: None Reported Past Surgical History: Adenoidectomy, Bariatric Surgery, Cholecystectomy, Heart Catheterization, Hysterectomy, Pacemaker, Tonsillectomy Additional Past Surgical History / Comment(s): cervical surgery/cage, sleeve gastrectomy 12-01-18; DR MOREL placed pacemaker on 05/28/2020 - pt unsure as to what type it is. Past Anesthesia/Blood Transfusion Reactions: Previous Problems w/ Anesthesia Additional Past Anesthesia/Blood Transfusion Reaction / Comment(s): states "was told by my sister's boyfriend that I had trouble breathing and almost during my neck surgery",no hx blood transfusion Date of Last Stent Placement:: 06/03/2014 Type of Cardiac Device: Unknown Device Placement Date:: 05/28/2020 Past Psychological History: Depression Smoking Status: Never smoker Past Alcohol Use History: None Reported Past Drug Use History: None Reported - Past Family History Father Family Medical History: Cancer Additional Family Medical History / Comment(s): stomach Sister(s) Family Medical History: Cancer Additional Family Medical History / Comment(s): stomach CA Mother Family Medical History: No Reported History Additional Family Medical History / Comment(s): . General Exam - General Exam Comments Initial Comments: GENERAL: Patient is well-developed and well-nourished. Patient is nontoxic and well- hydrated and is in no acute distress. ENT: Neck is soft and supple. No significant lymphadenopathy is noted. Oropharynx is clear. Moist mucous membranes. Neck has full range of motion without eliciting any pain. EYES: The sclera were anicteric and conjunctiva were pink and moist. Extraocular movements were intact and pupils were equal round and reactive to light. Eyelids were unremarkable. PULMONARY: Unlabored respirations. Good breath sounds bilaterally. No audible rales rhonchi or wheezing was noted. CARDIOVASCULAR: There is a regular rate and rhythm without any murmurs gallops or rubs. ABDOMEN: Soft and nontender with normal bowel sounds. No palpable organomegaly was noted. There is no palpable pulsatile mass. SKIN: Skin is clear with no lesions or rashes and otherwise unremarkable. NEUROLOGIC: Patient is alert and oriented 3 cranial nerves II through XII are grossly intact motor and sensory are also intact MUSCULOSKELETAL: Normal extremities with adequate strength and full range of motion. LYMPHATICS: No significant lymphadenopathy is noted PSYCHIATRIC: Normal psychiatric evaluation. Limitations: no limitations Course Vital Signs 01/08/21 01/08/21 01/08/21 13:07 13:58 16:03 Temperature 98.4 F Pulse Rate 69 60 54 L Pulse Rate [ 60 Bilateral Radial] Respiratory 20 185 H 18 Rate Blood Pressure 140/101 133/86 137/82 O2 Sat by Pulse 100 100 99 Oximetry Medical Decision Making - Medical Decision Making EKG shows normal sinus rhythm at 64 bpm KS interval 294 QRS is 94 QT interval 416 QTC is 429. EKG shows no ST segment elevation or depression. Patient denied feeling any palpitations however she was told that she had might have some irregular heartbeats Chest x-ray shows no acute abnormality. Patient never had a new. Heartbeat that I saw the monitor or when I listen to her. I spoke with Dr. Hancock he wanted the patient to follow-up with her in the office. I spoke to the patient he was in agreement with this - Lab Data Result diagrams: 01/08/21 13:43 01/08/21 13:43 Lab Results 01/08/21 01/08/21 01/08/21 Range/Units 13:43 13:43 13:43 WBC 4.8 (3.8-10.6) k/uL RBC 3.94 (3.80-5.40) m/uL Hgb 13.0 (11.4-16.0) gm/dL Hct 37.0 (34.0-46.0) % MCV 93.9 (80.0-100.0) fL MCH 33.0 (25.0-35.0) pg MCHC 35.1 (31.0-37.0) g/dL RDW 12.3 (11.5-15.5) % Plt Count 235 (150-450) k/uL MPV 7.7 Neutrophils % 48 % Lymphocytes % 43 % Monocytes % 4 % Eosinophils % 2 % Basophils % 1 % Neutrophils # 2.3 (1.3-7.7) k/uL Lymphocytes # 2.1 (1.0-4.8) k/uL Monocytes # 0.2 (0-1.0) k/uL Eosinophils # 0.1 (0-0.7) k/uL Basophils # 0.0 (0-0.2) k/uL PT 10.9 (9.0-12.0) sec INR 1.0 (<1.2) APTT 25.1 (22.0-30.0) sec Sodium (137-145) mmol/L Potassium (3.5-5.1) mmol/L Chloride (98-107) mmol/L Carbon Dioxide (22-30) mmol/L Anion Gap mmol/L BUN (7-17) mg/dL Creatinine (0.52-1.04) mg/dL Est GFR (CKD-EPI)AfAm (>60 ml/min/1.73 sqM) Est GFR (CKD-EPI)NonAf (>60 ml/min/1.73 sqM) Glucose (74-99) mg/dL Plasma Lactic Acid Kd (0.7-2.0) mmol/L Calcium (8.4-10.2) mg/dL Magnesium (1.6-2.3) mg/dL Total Bilirubin (0.2-1.3) mg/dL AST (14-36) U/L ALT (4-34) U/L Alkaline Phosphatase (38-126) U/L Troponin I (0.000-0.034) ng/mL Total Protein (6.3-8.2) g/dL Albumin (3.5-5.0) g/dL Urine Color Yellow Urine Appearance Clear (Clear) Urine pH 7.0 (5.0-8.0) Ur Specific Delta 1.023 (1.001-1.035) Urine Protein Negative (Negative) Urine Glucose (UA) Negative (Negative) Urine Ketones Negative (Negative) Urine Blood Negative (Negative) Urine Nitrite Negative (Negative) Urine Bilirubin Negative (Negative) Urine Urobilinogen <2.0 (<2.0) mg/dL Ur Leukocyte Esterase Negative (Negative) 01/08/21 01/08/21 01/08/21 Range/Units 13:43 13:43 13:43 WBC (3.8-10.6) k/uL RBC (3.80-5.40) m/uL Hgb (11.4-16.0) gm/dL Hct (34.0-46.0) % MCV (80.0-100.0) fL MCH (25.0-35.0) pg MCHC (31.0-37.0) g/dL RDW (11.5-15.5) % Plt Count (150-450) k/uL MPV Neutrophils % % Lymphocytes % % Monocytes % % Eosinophils % % Basophils % % Neutrophils # (1.3-7.7) k/uL Lymphocytes # (1.0-4.8) k/uL Monocytes # (0-1.0) k/uL Eosinophils # (0-0.7) k/uL Basophils # (0-0.2) k/uL PT (9.0-12.0) sec INR (<1.2) APTT (22.0-30.0) sec Sodium 140 (137-145) mmol/L Potassium 3.7 (3.5-5.1) mmol/L Chloride 107 (98-107) mmol/L Carbon Dioxide 27 (22-30) mmol/L Anion Gap 6 mmol/L BUN 16 (7-17) mg/dL Creatinine 0.52 (0.52-1.04) mg/dL Est GFR (CKD-EPI)AfAm >90 (>60 ml/min/1.73 sqM) Est GFR (CKD-EPI)NonAf >90 (>60 ml/min/1.73 sqM) Glucose 96 (74-99) mg/dL Plasma Lactic Acid Kd 1.0 (0.7-2.0) mmol/L Calcium 9.4 (8.4-10.2) mg/dL Magnesium 1.9 (1.6-2.3) mg/dL Total Bilirubin 0.4 (0.2-1.3) mg/dL AST 18 (14-36) U/L ALT 8 (4-34) U/L Alkaline Phosphatase 84 (38-126) U/L Troponin I <0.012 (0.000-0.034) ng/mL Total Protein 6.1 L (6.3-8.2) g/dL Albumin 3.5 (3.5-5.0) g/dL Urine Color Urine Appearance (Clear) Urine pH (5.0-8.0) Ur Specific Delta (1.001-1.035) Urine Protein (Negative) Urine Glucose (UA) (Negative) Urine Ketones (Negative) Urine Blood (Negative) Urine Nitrite (Negative) Urine Bilirubin (Negative) Urine Urobilinogen (<2.0) mg/dL Ur Leukocyte Esterase (Negative) Disposition Clinical Impression: Generalized weakness Disposition: HOME SELF-CARE Condition: Good Instructions (If sedation given, give patient instructions): Weakness (ED) Is patient prescribed a controlled substance at d/c from ED?: No Referrals: Júnior Hancock MD [Primary Care Provider] - 1-2 days Time of Disposition: 17:36
[2021-01-08 14:09] LABS: Basophils % (A) 1 %; Eosinophils # (A) 0.1 k/uL (0-0.7); Eosinophils % (A) 2 %; Lymphocytes # (A) 2.1 k/uL (1.0-4.8); Lymphocytes % (A) 43 %; MCHC 35.1 g/dL (31.0-37.0); MCV 93.9 fL (80.0-100.0); Mean Platelet Volume 7.7; Monocytes # (A) 0.2 k/uL (0-1.0); Monocytes % (A) 4 %; Neutrophils # (A) 2.3 k/uL (1.3-7.7); Neutrophils % (A) 48 %; Platelet Count 235 k/uL (150-450); RBC 3.94 m/uL (3.80-5.40); RDW 12.3 % (11.5-15.5); WBC 4.8 k/uL (3.8-10.6)
--- NOTE | 2021-01-08 14:20 | XR ---
EXAMINATION TYPE: XR chest 2V DATE OF EXAM: 01/08/2021 COMPARISON: 09/14/2020 TECHNIQUE: PA and lateral views submitted. HISTORY: Weakness FINDINGS: The lungs are clear and there is no pneumothorax, pleural effusion, or focal pneumonia. Surgical ch thao overlying the cervical spine. Calcification overlying the right shoulder could be associated wit h calcific tendinosis. AC joint arthropathy noted. Heart size mildly prominent but stable. No overt f ailure. Degenerative changes of the spine. IMPRESSION: 1. No acute process.
[2021-01-08 14:26] LABS: ALT 8 U/L (4-34); AST 18 U/L (14-36); African American GFR (CKD) >90 (>60 ml/min/1.73 sqM); Albumin 3.5 g/dL (3.5-5.0); Alkaline Phosphatase 84 U/L (38-126); Anion Gap 6 mmol/L; Blood Urea Nitrogen 16 mg/dL (7-17); Calcium 9.4 mg/dL (8.4-10.2); Carbon Dioxide 27 mmol/L (22-30); Chloride 107 mmol/L (98-107); Glucose 96 mg/dL (74-99); Magnesium 1.9 mg/dL (1.6-2.3); Non-African American GFR(CKD) >90 (>60 ml/min/1.73 sqM); Potassium 3.7 mmol/L (3.5-5.1); Sodium 140 mmol/L (137-145); Total Bilirubin 0.4 mg/dL (0.2-1.3); Total Protein 6.1 g/dL (6.3-8.2)
[2021-01-08 14:40] LABS: Prothrombin Time 10.9 sec (9.0-12.0)
[2021-01-08 14:41] LABS: Partial Thromboplastin Time 25.1 sec (22.0-30.0)
[2021-01-08] MEDS ORDERED: ACETAMINOPHEN TAB 325 MG TAB PO STA (15:56)
[2021-01-08 16:05] VITALS: BP 137/82; PULSE 54; RESP 18
[2021-01-08 16:38] LABS: Appearance,Urine Clear (Clear); Bilirubin,Urine Negative (Negative); Blood,Urine Negative (Negative); Color,Urine Yellow; Glucose,Urine (UA) Negative (Negative); Ketones,Urine Negative (Negative); Leukocyte Esterase,Urine Negative (Negative); Nitrite,Urine Negative (Negative); Protein,Urine Negative (Negative); Specific Gravity,Urine 1.023 (1.001-1.035); Urobilinogen,Urine <2.0 mg/dL (<2.0)
== END 2021-01-08 17:58 | disposition home or self-care (01) ==
LOC: EC 13:00
DX: R53.1 Weakness (principal); E78.5 Hyperlipidemia, unspecified; G25.81 Restless legs syndrome; G40.909 Epilepsy, unspecified, not intractable, without status epilepticus; I11.0 Hypertensive heart disease with heart failure; I50.9 Heart failure, unspecified; J45.909 Unspecified asthma, uncomplicated; Z79.899 Other long term (current) drug therapy; Z88.0 Allergy status to penicillin; Z88.6 Allergy status to analgesic agent; Z91.040 Latex allergy status; Z91.09 Other allergy status, other than to drugs and biological substances; Z91.030 Bee allergy status; Z88.8 Allergy status to other drugs, medicaments and biological substances
CPT/HCPCS: 36415; 71046; 80053; 81003; 83605; 83735; 84484; 85025; 85610; 85730; 93005; 99285

== ENCOUNTER 2021-01-25 08:09 | Outpatient (CLI) | payer MEDICARE, OTHER ==
[2021-01-25 08:47] VITALS: TEMP 97.8
[2021-01-25] MEDS ORDERED: diazePAM 5 MG TAB PO STA (09:07)
--- NOTE | 2021-01-25 10:58 | CT ---
EXAMINATION TYPE: CT cervical spine w con DATE OF EXAM: 01/25/2021 COMPARISON: CT cervical spine January 04, 2016. Cervical spine x-ray 2020 HISTORY: Neck pain CT DLP: 337.6 mGycm. Automated Exposure Control for Dose Reduction was Utilized. TECHNIQUE: CT scan of the cervical spine is obtained following intrathecal administration of Isovue 200 M contrast, axial images are obtained, sagittal and coronal reformatted images are also reviewed. FINDINGS: There is successful opacification of the spinal canal. Persistent anterior fusion plate ari ng with metallic fusion cage at C5-C7 level. There is some ossific fusion at this level. There is sta ble alignment with reversal of normal cervical curvature centered at this level. Posterior bony proje ctions effaces the anterior thecal sac at C5-C6 level sagittal image 44 and C6-C7 level more prominen t to left of midline sagittal image 46. Stable moderate disc space narrowing and anterior spurring C4 -C5 level. Axial images show C2-C3 and C3-C4 levels remain within normal limits. Axial images at C4-C5 level show posterior spur disc complex effacing the anterior thecal sac greates t right paracentral component on image 57 series 4, mild asymmetric left-sided neural foraminal narro wing. Axial images C5-C6 level shows right paracentral bony projection efface the anterior thecal sac on im age 64 series 4, patent bilateral neural foramina. Axial images at C6-C7 level show left paracentral/foraminal bony projection effacing anterolateral th ecal sac on image 70 and causing asymmetric moderate left-sided neural foraminal narrowing. Patent ri ght-sided neural foramina. Axial images at C7-T1 level are within normal limits. Thyroid gland is felt within normal limits. Visualized lung apices are clear. IMPRESSION: As above.
--- NOTE | 2021-01-25 11:04 | CT ---
EXAMINATION TYPE: CT lumbar spine w con DATE OF EXAM: 01/25/2021 COMPARISON: Lumbar spine x-ray September 11, 2020 HISTORY: cervical spine pain, lumbago CT DLP: 854.5 mGycm Automated exposure control for dose reduction was used. CONTRAST: CT scan of the lumbar is performed with intrathecal contrast injection, patient injected with 15 mL o f Isovue M200. Enhanced CT of the lumbar spine was performed. Bone and soft tissue window settings are submitted as well as coronal and sagittal reconstructions. There are 5 lumbar-type vertebra. Satisfactory intrathecal injection noted. Vertebral body heights an d alignment are satisfactory. Mild disc space narrowing L3-L4 level. Fnbyjcko-xa-luejug disc space na rrowing L5-S1 level. Axial images show T12-L1, L1-L2, L2-L3 levels all to appear within normal limits. Axial images at the L3-L4 level mild facet arthropathy bilaterally. There is mild to moderate broad-b ased posterior disc protrusion mildly effacing anterior thecal sac. There is mild left greater than r ight bilateral anterior inferior neural foraminal narrowing. Axial images at the L4-L5 vertebra show mild/moderate facet arthropathy and ligament flavum hypertrop hy effacing posterior lateral thecal sac. There is [id number] broad disc bulge mildly effaces t he anterior thecal sac. There is mild to moderate right greater than left anterior inferior neural fo raminal narrowing. Axial images at the L5-S1 level show moderate facet arthropathy bilaterally. There is small posterior spur disc complex with spinal canal is preserved. Mild right-sided anterior inferior neural foramina l narrowing due to right foraminal disc protrusion component. Left-sided neural foramina is patent. Paraspinal muscle bulk is maintained. IMPRESSION: Successful myelogram. Mild to moderate degenerative changes in the mid to lower lumbar sp ine as detailed above.
[2021-01-25 11:59] VITALS: RESP 18
[2021-01-25 12:23] VITALS: PULSE 50
[2021-01-25 12:58] VITALS: BP 127/76
--- NOTE | 2021-01-25 13:32 | FL ---
EXAMINATION TYPE: FL myelogram 2 or more regions DATE OF EXAM: 01/25/2021 COMPARISON: Prior CT abdomen and pelvis June 26, 2016 HISTORY: Neck and low back pain. Technique and Findings: Fluoroscopic assisted myelogram. A total of 42 seconds fluoroscopic time util ized during procedure. 4 spot images saved to PACS. Procedure explained to patient. Benefits, alternatives, and risks discussed. Informed consent was th en obtained. The L2-L3 level was localized under fluoroscopy after review of 2017 CT from direct posterior approac h. Standard sterile technique was utilized as well as appropriate local anesthesia Lidocaine . Spin al needle was introduced into the thecal sac under fluoroscopic guidance and 15 mL's of Isovue 200 M was injected. There is documentation of successful contrast injection. Patient placed head down to g et contrast to flow to the cervical spinal canal. This is documented. There are sutures from gastric sleeve surgery and overlying loop recorder incidentally noted. Surgical change in the lower cervical spine is visualized. The patient tolerated the procedure well and left the department in stable condition. CT myelography is to follow. This report is dictated separately. Vital signs monitored before during and after pro cedure. Patient stayed in the hospital for short stay after the procedure and then was discharged kishor e in stable and satisfactory condition. IMPRESSION: Successful lumbar spine myelogram for subsequent CT cervical and lumbar spine.
== END 2021-01-25 13:28 | disposition home or self-care (01) ==
LOC: RADPROMAIN 08:09
PROVIDERS: ATTEND Family Medicine
DX: M47.816 Spondylosis without myelopathy or radiculopathy, lumbar region (principal); M51.26 Other intervertebral disc displacement, lumbar region; M50.221 Other cervical disc displacement at C4-C5 level; M99.71 Connective tissue and disc stenosis of intervertebral foramina of cervical region
CPT/HCPCS: 62305; 72126; 72132; Q9966

== ENCOUNTER → 2021-02-11 | Outpatient (CLI) | payer MEDICARE, OTHER ==
[2021-02-11 13:10] VITALS: BP 131/80; PULSE 76; TEMP 98.1; BMI 28.1
--- NOTE | 2021-02-11 16:32 | P.HPBAR ---
Bariatric H&P - History & Physicial H&P Date: 02/11/21 History & Physicial: Visit/CC: sleeve follow up Patient initial contact: Initial weight: 137.438 kg Initial weight in pounds: 303.00 Height: 5 ft 7 in Initial BMI: 47.4 Last weight: Current weight: 81.647 kg Current weight in pounds: 180.00 Current BMI: 28.1 [place] body weight (based on NIH guidelines): 61.235 kg Excess body weight loss: 73.2% The patient is a 60 year-old F who presents for Bariatric Assessment. Patient presents today for sleeve gastrectomy fall. She's had some issues with hypotension and cardiac arrhythmias and seizure disorders which she is seeing her PCP for. She states that her weight has been stable. She denies any significant vomiting. She's had some minimal GERD. Past Medical History Past Medical History: Asthma, Chest Pain / Angina, Heart Failure, Hyperlipidemia, Hypertension, Osteoarthritis (OA), Pneumonia, Seizure Disorder, Skin Disorder, Sleep Apnea/CPAP/BIPAP, Thyroid Disorder Additional Past Medical History / Comment(s): See Dr Jennings H&P, LAST KNOWN SEIZURE approximately first of april 2020, developementally disabled, restless leg syndrome, cervical and back pain with pain down bilateral legs, leg weakness, occasional numbness and tingling to bilateral hands and feet,cpap used currently, abdominal pain. (diarrhea)- right after eating, states has had recent falls, persistant itching-cause unknown, sees pain specialist for chronic pain (entire body). last seizure January 01, 2021. History of Any Multi-Drug Resistant Organisms: None Reported Past Surgical History: Adenoidectomy, Bariatric Surgery, Cholecystectomy, Heart Catheterization, Hysterectomy, Pacemaker, Tonsillectomy Additional Past Surgical History / Comment(s): cervical surgery/cage, sleeve gastrectomy 12-01-18; DR JENNINGS placed pacemaker on 05/28/2020 - pt unsure as to what type it is. Past Anesthesia/Blood Transfusion Reactions: Previous Problems w/ Anesthesia Additional Past Anesthesia/Blood Transfusion Reaction / Comm: states "was told by my sister's boyfriend that I had trouble breathing and almost during my neck surgery",no hx blood transfusion Date of Last Stent Placement:: 06/03/2014 Type of Cardiac Device: Unknown Device Placement Date:: 05/28/2020 Smoking Status: Never smoker - Past Family History Father Family Medical History: Cancer Additional Family Medical History / Comment(s): stomach Sister(s) Family Medical History: Cancer Additional Family Medical History / Comment(s): stomach CA Mother Family Medical History: No Reported History Additional Family Medical History / Comment(s): . Surgical - Exam Vital Signs Temp Pulse BP 98.1 F 76 131/80 02/11/21 13:07 02/11/21 13:07 02/11/21 13:07 - General well developed, well nourished, no distress - Eyes PERRL - ENT normal pinna - Neck no masses - Respiratory normal expansion - Cardiovascular Rhythm: regular - Abdomen Abdomen: soft, non tender Bariatric Assessment & Plan Plan: Status post sleeve gastric. Patient appears minimal will be observed. She'll follow-up in 4 weeks. Bariatric Checklist Checklist: Plan: Checklist: EGD: 1. Hiatal hernia: 2. H. Pylori: HgbA1c: Vitamin D: Smoking: Never smoker Primary care physician referral: PCP Barbara Carter=Dr.Rina [facility] clearance: Cardiology clearance: Sleep study: Diet journal: VTE risk score: VTE risk level: Rehab needs at discharge:
== END ==
LOC: BARWHC3 12:13
PROVIDERS: ATTEND Surgery
DX: Z08 Encounter for follow-up examination after completed treatment for malignant neoplasm (principal); J45.909 Unspecified asthma, uncomplicated; I11.0 Hypertensive heart disease with heart failure; I50.9 Heart failure, unspecified; E78.5 Hyperlipidemia, unspecified; M19.90 Unspecified osteoarthritis, unspecified site; G40.909 Epilepsy, unspecified, not intractable, without status epilepticus; Z98.84 Bariatric surgery status; Z95.0 Presence of cardiac pacemaker; Z88.0 Allergy status to penicillin; Z91.040 Latex allergy status; Z88.6 Allergy status to analgesic agent; Z91.048 Other nonmedicinal substance allergy status; Z91.030 Bee allergy status; Z88.8 Allergy status to other drugs, medicaments and biological substances
CPT/HCPCS: 99211

== ENCOUNTER 2021-03-04 08:56 | Day surgery (SDC) | payer MEDICARE, OTHER ==
[2021-02-28 12:23] VITALS: BMI 29.0
[~2021-03-04 08:56] MED LIST changes: -CLINDAMYCIN 900 MG in DEXTROSE 5% IN WATER 50 ML IVPB PRN; +LACTATED RINGERS 1,000 ML IV SCH; -SODIUM CHLORIDE 0.9% 1,000 ML IV SCH
[2021-03-04] MEDS ORDERED: LACTATED RINGERS 1,000 ML IV SCH (09:37)
[2021-03-04] MEDS ORDERED: LIDOCAINE 1% (10MG/ML) FOR IV START INTRADERMA PRN (09:37)
[2021-03-04 09:48] VITALS: RESP 16; TEMP 97.1
[2021-03-04] MEDS ORDERED: PROPOFOL 10 MG/ML 20 ML VIAL IV ONE (10:21)
[2021-03-04] MEDS ORDERED: GLYCOPYRROLATE 0.2 MG/ML 2 ML VIAL ONE (10:21)
[2021-03-04] MEDS ORDERED: LIDOCAINE 1% INJ 10MG/ML (20 ML MDV) ONE (10:21)
--- NOTE | 2021-03-04 10:23 | P.GSHP ---
History of Present Illness H&P Date: 03/04/21 Chief Complaint: Screening colonoscopy This is a 52-year-old female who presents today for screening colonoscopy. Patient denies any significant GI complaints. Past Medical History Past Medical History: Asthma, Chest Pain / Angina, Heart Failure, Hyperlipidemia, Hypertension, Osteoarthritis (OA), Seizure Disorder, Skin Disorder, Sleep Apnea/CPAP/BIPAP, Thyroid Disorder Additional Past Medical History / Comment(s): PT STATES NO LONGER TAKING RX FOR HTN. See Dr Jennings H&P, LAST KNOWN SEIZURE approximately first of april 2020, developementally disabled, restless leg syndrome, cervical and back pain with pain down bilateral legs, leg weakness, occasional numbness and tingling to bilateral hands and feet,cpap used currently, abdominal pain. (diarrhea)- right after eating, states has had recent falls, persistant itching-cause unknown, sees pain specialist for chronic pain (entire body). last seizure January 01, 2021. History of Any Multi-Drug Resistant Organisms: None Reported Past Surgical History: Adenoidectomy, Bariatric Surgery, Cholecystectomy, Heart Catheterization, Hysterectomy, Tonsillectomy Additional Past Surgical History / Comment(s): cervical surgery/cage, sleeve gastrectomy 12-01-18; DR JENNINGS placed LOOP RECORDER on 05/28/2020 - Past Anesthesia/Blood Transfusion Reactions: Previous Problems w/ Anesthesia Additional Past Anesthesia/Blood Transfusion Reaction / Comment(s): states "was told by my sister's boyfriend that I had trouble breathing and almost during my neck surgery",no hx blood transfusion Date of Last Stent Placement:: 06/03/2014 Type of Cardiac Device: Unknown Device Placement Date:: 05/28/2020 Smoking Status: Never smoker - Past Family History Father Family Medical History: Cancer Additional Family Medical History / Comment(s): stomach Sister(s) Family Medical History: Cancer Additional Family Medical History / Comment(s): stomach CA Mother Family Medical History: No Reported History Additional Family Medical History / Comment(s): . Medications and Allergies Home Medications Medication Instructions Recorded Confirmed Type Aspirin EC [Ecotrin Low Dose] 81 mg PO DAILY 02/22/19 02/28/21 History Pantoprazole [Protonix] 40 mg PO HS 11/10/19 02/28/21 History HYDROcodone/APAP 10-325MG [[place] 1 tab PO QID PRN 03/07/20 02/28/21 History 10-325] Gabapentin [Neurontin] 600 mg PO TID 07/09/20 02/28/21 History Albuterol Inhaler [Ventolin Hfa 2 puff INHALATION RT-QID PRN 09/14/20 02/28/21 History Inhaler] Clobetasol Propionate [Temovate 1 applic TOPICAL BID PRN 09/14/20 02/28/21 History 0.05% Cream] Cyanocobalamin (Vitamin B-12) 1,000 mcg PO DAILY 09/14/20 02/28/21 History [Vitamin B-12] Ergocalciferol [Vitamin D2 (1250 1,250 mcg PO FR 09/14/20 02/28/21 History Mcg = 86830 Iu)] Levothyroxine Sodium 125 mcg PO DAILY 09/14/20 02/28/21 History Loratadine 10 mg PO DAILY 09/14/20 02/28/21 History Montelukast [Singulair] 10 mg PO HS 09/14/20 02/28/21 History levETIRAcetam [Keppra] 1,500 mg PO BID 09/14/20 02/28/21 History Alendronate Sodium 70 mg PO FR 01/08/21 02/28/21 History Potassium Chloride [Potassium 20 meq PO BID 01/08/21 02/28/21 History Chloride ER] Meclizine [Antivert] 25 mg PO TID PRN 01/23/21 02/28/21 History Triamcinolone 0.1% Cream [Kenalog 1 applicatio TOPICAL BID 02/28/21 02/28/21 History 0.1% Cream] Allergies Allergy/AdvReac Type Severity Reaction Status Date / Time adhesive Allergy Rash/Hives Verified 02/28/21 11:49 bee venom protein (honey bee) Allergy Anaphylaxis Verified 02/28/21 11:49 buspirone [From BuSpar] Allergy Itching Verified 02/28/21 11:49 divalproex sodium Allergy Swelling Verified 02/28/21 11:49 [From Depakote] ibuprofen [From Motrin] Allergy Rash/Hives Verified 02/28/21 11:49 latex Allergy Rash/Hives Verified 02/28/21 11:49 Penicillins Allergy Rash/Hives Verified 02/28/21 11:49 topiramate [From Topamax] Allergy Swelling Verified 02/28/21 11:49 Surgical - Exam Vital Signs Temp Pulse Resp BP Pulse Ox 97.1 F L 67 16 141/81 97 03/04/21 09:47 03/04/21 09:47 03/04/21 09:47 03/04/21 09:47 03/04/21 09:47 - General well developed, well nourished, no distress - Eyes PERRL - ENT normal pinna - Neck no masses - Respiratory normal expansion - Cardiovascular Rhythm: regular - Abdomen Abdomen: soft, non tender Assessment and Plan Assessment: We'll perform screening colonoscopy.
--- NOTE | 2021-03-04 10:41 | P.OP ---
Date of Procedure: 03/04/21 Preoperative Diagnosis: Screening colonoscopy Postoperative Diagnosis: Mild diverticulosis Procedure(s) Performed: Colonoscopy Anesthesia: MAC Surgeon: Blayne Sethi Pathology: none sent Condition: stable Disposition: PACU Description of Procedure: The patient's placed on the endoscopy table in the lateral position. She received IV sedation. Digital rectal exam was performed which revealed a few external hemorrhoids. Flexible colonoscope was then placed patient anus passed throughout the colon. The scope could not be placed into the cecum was admitted to tortuous valve. Scope was withdrawn. Remainder the ascending colon, transverse colon appeared normal. In the descending and sigmoid colon was a few scattered diverticula. Scope was brought back the rectum and this appeared normal. Scope withdrawn for patient.
[2021-03-04 11:03] VITALS: BP 136/93; PULSE 64
== END 2021-03-04 11:22 | disposition home or self-care (01) ==
LOC: ORWHC2ENDO 08:56
PROVIDERS: ATTEND Surgery
DX: Z12.11 Encounter for screening for malignant neoplasm of colon (principal); Q43.8 Other specified congenital malformations of intestine; K57.30 Diverticulosis of large intestine without perforation or abscess without bleeding; K64.4 Residual hemorrhoidal skin tags; J45.909 Unspecified asthma, uncomplicated; I20.9 Angina pectoris, unspecified; F79 Unspecified intellectual disabilities; I11.0 Hypertensive heart disease with heart failure; I50.9 Heart failure, unspecified; E78.5 Hyperlipidemia, unspecified; M19.90 Unspecified osteoarthritis, unspecified site; G40.909 Epilepsy, unspecified, not intractable, without status epilepticus; L98.9 Disorder of the skin and subcutaneous tissue, unspecified; G47.33 Obstructive sleep apnea (adult) (pediatric); E07.9 Disorder of thyroid, unspecified; G25.81 Restless legs syndrome; G89.29 Other chronic pain; M54.10 Radiculopathy, site unspecified; M54.2 Cervicalgia; R53.1 Weakness; R20.0 Anesthesia of skin; R20.2 Paresthesia of skin; R10.9 Unspecified abdominal pain; R29.6 Repeated falls; L29.9 Pruritus, unspecified; Z90.49 Acquired absence of other specified parts of digestive tract; Z98.84 Bariatric surgery status; Z90.710 Acquired absence of both cervix and uterus; Z98.890 Other specified postprocedural states; Z95.818 Presence of other cardiac implants and grafts; Z80.0 Family history of malignant neoplasm of digestive organs; Z79.82 Long term (current) use of aspirin; Z79.890 Hormone replacement therapy; Z79.899 Other long term (current) drug therapy; Z88.6 Allergy status to analgesic agent; Z91.030 Bee allergy status; Z91.040 Latex allergy status; Z88.0 Allergy status to penicillin; Z88.8 Allergy status to other drugs, medicaments and biological substances; Z91.09 Other allergy status, other than to drugs and biological substances
CPT/HCPCS: J2001; J2704; G0121

== ENCOUNTER → 2021-03-18 | Outpatient (CLI) | payer MEDICARE, OTHER ==
[2021-03-18 13:00] VITALS: BP 122/89; PULSE 76; RESP 18; TEMP 98.4; BMI 29.9
[2021-03-18 16:16] LABS: Amorphous Sediment,Urine Few /hpf; Appearance,Urine Cloudy (Clear); Bacteria,Urine Rare /hpf; Bilirubin,Urine Negative (Negative); Blood,Urine Negative (Negative); Color,Urine Yellow; Glucose,Urine (UA) Negative (Negative); Hyaline Casts,Urine 3 /lpf (0-2); Ketones,Urine Negative (Negative); Leukocyte Esterase,Urine Negative (Negative); Mucus,Urine Few /hpf; Nitrite,Urine Negative (Negative); Protein,Urine Negative (Negative); RBC,Urine 1 /hpf (0-5); Specific Gravity,Urine 1.024 (1.001-1.035); Squamous Epithelial Cell,Urine 1 /hpf (0-4); Urobilinogen,Urine <2.0 mg/dL (<2.0); WBC,Urine 1 /hpf (0-5)
--- NOTE | 2021-04-15 17:12 | P.HPBAR ---
Bariatric H&P - History & Physicial H&P Date: 03/18/21 History & Physicial: Visit/CC: follow up Patient initial contact: Initial weight: 137.438 kg Initial weight in pounds: 303.00 Height: 5 ft 7 in Initial BMI: 47.4 Last weight: Current weight: 86.636 kg Current weight in pounds: 191.00 Current BMI: 29.9 [place] body weight (based on NIH guidelines): 61.235 kg Excess body weight loss: 66.6% The patient is a 60 year-old F who presents for Bariatric Assessment. Patient resents today for bariatric follow-up. She has had some GERD issues. She is also being worked up for seizures. Past Medical History Past Medical History: Asthma, Chest Pain / Angina, Heart Failure, Hyperlipidemia, Hypertension, Osteoarthritis (OA), Seizure Disorder, Skin Disorder, Sleep Apnea/CPAP/BIPAP, Thyroid Disorder Additional Past Medical History / Comment(s): PT STATES NO LONGER TAKING RX FOR HTN. See Dr Jennings H&P, LAST KNOWN SEIZURE approximately first of april 2020, developementally disabled, restless leg syndrome, cervical and back pain with pain down bilateral legs, leg weakness, occasional numbness and tingling to bilateral hands and feet,cpap used currently, abdominal pain. (diarrhea)- right after eating, states has had recent falls, persistant itching-cause unknown, sees pain specialist for chronic pain (entire body). last seizure January 01, 2021. History of Any Multi-Drug Resistant Organisms: None Reported Past Surgical History: Adenoidectomy, Bariatric Surgery, Cholecystectomy, Heart Catheterization, Hysterectomy, Tonsillectomy Additional Past Surgical History / Comment(s): cervical surgery/cage, sleeve gastrectomy 12-01-18; DR JENNINGS placed LOOP RECORDER on 05/28/2020 - Past Anesthesia/Blood Transfusion Reactions: Previous Problems w/ Anesthesia Additional Past Anesthesia/Blood Transfusion Reaction / Comm: states "was told by my sister's boyfriend that I had trouble breathing and almost during my neck surgery",no hx blood transfusion Date of Last Stent Placement:: 06/03/2014 Type of Cardiac Device: Unknown Device Placement Date:: 05/28/2020 Past Psychological History: Depression Additional Psychological History / Comment(s): Pt states she currently resides with her sister. She is mildly developmentally delayed. 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 Past Drug Use History: None Reported - Past Family History Father Family Medical History: Cancer Additional Family Medical History / Comment(s): stomach Sister(s) Family Medical History: Cancer Additional Family Medical History / Comment(s): stomach CA Mother Family Medical History: No Reported History Additional Family Medical History / Comment(s): . Surgical - Exam Vital Signs Temp Pulse Resp BP Pulse Ox 98.4 F 76 18 122/89 98 03/18/21 12:56 03/18/21 12:56 03/18/21 12:56 03/18/21 12:56 03/18/21 12:56 - General well developed, well nourished, no distress - Eyes PERRL - ENT normal pinna - Neck no masses - Respiratory normal expansion - Cardiovascular Rhythm: regular - Abdomen Abdomen: soft, non tender Bariatric Assessment & Plan Plan: Status post sleeve gastrectomy. Patient's weight loss has decreased. Her GERD is minimal colon cancer. She'll follow-up in 4 weeks. Bariatric Checklist Checklist: Plan: Checklist: EGD: 1. Hiatal hernia: 2. H. Pylori: HgbA1c: Vitamin D: Smoking: Never smoker Primary care physician referral: PCP Barbara Carter=, Quality Review Specialist=[facility] clearance: Cardiology clearance: Sleep study: Diet journal: VTE risk score: VTE risk level: Rehab needs at discharge:
== END ==
LOC: BARWHC3 12:07
PROVIDERS: ATTEND Surgery
DX: Z09 Encounter for follow-up examination after completed treatment for conditions other than malignant neoplasm (principal); K21.9 Gastro-esophageal reflux disease without esophagitis; C18.9 Malignant neoplasm of colon, unspecified; J45.909 Unspecified asthma, uncomplicated; E78.5 Hyperlipidemia, unspecified; I11.0 Hypertensive heart disease with heart failure; I50.9 Heart failure, unspecified; M19.90 Unspecified osteoarthritis, unspecified site; G40.909 Epilepsy, unspecified, not intractable, without status epilepticus; F32.A Depression, unspecified; Z98.84 Bariatric surgery status; Z91.048 Other nonmedicinal substance allergy status; Z91.030 Bee allergy status; Z88.8 Allergy status to other drugs, medicaments and biological substances; Z88.6 Allergy status to analgesic agent; Z91.040 Latex allergy status; Z88.0 Allergy status to penicillin
CPT/HCPCS: 81001; 87086; G0463; 99211

== ENCOUNTER → 2021-03-22 | Outpatient (CLI) | payer MEDICARE, OTHER | END | disposition home or self-care (01) | LOC: LABWHC1 10:02 | PROVIDERS: ATTEND Psychiatry & Neurology Neurology | DX: G40.009 Localization-related (focal) (partial) idiopathic epilepsy and epileptic syndromes with seizures of localized onset, not intractable, without status epilepticus (principal) | CPT/HCPCS: 36415; 80177 ==

== ENCOUNTER 2021-04-12 11:05 | Emergency (ER) | payer MEDICARE, OTHER ==
--- NOTE | 2021-04-12 15:34 | ED ---
General Adult HPI - General Chief complaint: Fall Stated complaint: Fall Time Seen by Provider: 04/12/21 15:01 Source: patient, RN notes reviewed Mode of arrival: wheelchair Limitations: physical limitation - History of Present Illness Initial comments: 60-year-old female presents to the emergency Department with complaints of low back pain status post fall. Patient was ambulating across the parking lot and tripped in a grassy uneven area. States she stumbled and lost her balance and fell onto her backside. Patient was able to get to standing position with assistance. She ambulated into the building with minimal assistance. Patient states she has issues with her gait due to her swollen legs. States she lives at home independently with her sister. Denies dizziness, headache, chest or abdominal pain, hip pain, loss of bowel or bladder control, and lower extremity weakness. - Related Data Home Medications Medication Instructions Recorded Confirmed Aspirin EC [Ecotrin Low Dose] 81 mg PO DAILY 02/22/19 04/12/21 Pantoprazole [Protonix] 40 mg PO HS 11/10/19 04/12/21 HYDROcodone/APAP 10-325MG [[place] 1 tab PO QID PRN 03/07/20 04/12/21 10-325] Gabapentin [Neurontin] 600 mg PO TID 07/09/20 04/12/21 Albuterol Inhaler [Ventolin Hfa 2 puff INHALATION RT-QID PRN 09/14/20 04/12/21 Inhaler] Levothyroxine Sodium 125 mcg PO DAILY 09/14/20 04/12/21 Loratadine 10 mg PO DAILY 09/14/20 04/12/21 Montelukast [Singulair] 10 mg PO HS 09/14/20 04/12/21 levETIRAcetam [Keppra] 1,500 mg PO BID 09/14/20 04/12/21 Alendronate Sodium 70 mg PO FR 01/08/21 04/12/21 Meclizine [Antivert] 25 mg PO TID PRN 01/23/21 04/12/21 Potassium Chloride ER [K-Dur 20] 20 meq PO DAILY 04/12/21 04/12/21 Triamterene/Hydrochlorothiazid 1 cap PO DAILY 04/12/21 04/12/21 [Dyazide 37.5-25 Capsule] rOPINIRole HCL [Requip] 0.5 mg PO HS 04/12/21 04/12/21 Allergies Allergy/AdvReac Type Severity Reaction Status Date / Time adhesive Allergy Rash/Hives Verified 04/12/21 16:34 bee venom protein (honey bee) Allergy Anaphylaxis Verified 04/12/21 16:34 buspirone [From BuSpar] Allergy Itching Verified 04/12/21 16:34 divalproex sodium Allergy Swelling Verified 04/12/21 16:34 [From Depakote] ibuprofen [From Motrin] Allergy Rash/Hives Verified 04/12/21 16:34 latex Allergy Rash/Hives Verified 04/12/21 16:34 Penicillins Allergy Rash/Hives Verified 04/12/21 16:34 topiramate [From Topamax] Allergy Swelling Verified 04/12/21 16:34 Review of Systems ROS Statement: Those systems with pertinent positive or pertinent negative responses have been documented in the HPI. ROS Other: All systems not noted in ROS Statement are negative. Past Medical History Past Medical History: Asthma, Chest Pain / Angina, Heart Failure, Hyperlipidemia, Hypertension, Osteoarthritis (OA), Seizure Disorder, Skin Disorder, Sleep Apnea/CPAP/BIPAP, Thyroid Disorder Additional Past Medical History / Comment(s): PT STATES NO LONGER TAKING RX FOR HTN. See Dr Morel H&P, LAST KNOWN SEIZURE approximately first of april 2020, developementally disabled, restless leg syndrome, cervical and back pain with pain down bilateral legs, leg weakness, occasional numbness and tingling to bilateral hands and feet,cpap used currently, abdominal pain. (diarrhea)- right after eating, states has had recent falls, persistant itching-cause unknown, sees pain specialist for chronic pain (entire body). last seizure January 01, 2021. History of Any Multi-Drug Resistant Organisms: None Reported Past Surgical History: Adenoidectomy, Bariatric Surgery, Cholecystectomy, Heart Catheterization, Hysterectomy, Tonsillectomy Additional Past Surgical History / Comment(s): cervical surgery/cage, sleeve gastrectomy 12-01-18; DR MOREL placed LOOP RECORDER on 05/28/2020 - Past Anesthesia/Blood Transfusion Reactions: Previous Problems w/ Anesthesia Additional Past Anesthesia/Blood Transfusion Reaction / Comment(s): states "was told by my sister's boyfriend that I had trouble breathing and almost during my neck surgery",no hx blood transfusion Date of Last Stent Placement:: 06/03/2014 Type of Cardiac Device: Unknown Device Placement Date:: 05/28/2020 Past Psychological History: Depression Smoking Status: Never smoker Past Alcohol Use History: None Reported Past Drug Use History: None Reported - Past Family History Father Family Medical History: Cancer Additional Family Medical History / Comment(s): stomach Sister(s) Family Medical History: Cancer Additional Family Medical History / Comment(s): stomach CA Mother Family Medical History: No Reported History Additional Family Medical History / Comment(s): . General Exam Limitations: physical limitation General appearance: alert, in no apparent distress, other (Well-developed, well- nourished female in no acute distress. Initial temperature 98.1, pulse 76, respirations 18, blood pressure 102/71, pulse ox 99% on room air.) Head exam: Present: atraumatic, normocephalic, normal inspection Eye exam: Present: normal appearance, PERRL, EOMI. Absent: scleral icterus, conjunctival injection, nystagmus, periorbital swelling Neck exam: Present: normal inspection, full ROM. Absent: tenderness Respiratory exam: Present: normal lung sounds bilaterally. Absent: respiratory distress, wheezes, rales, rhonchi, stridor Cardiovascular Exam: Present: regular rate, normal rhythm, normal heart sounds. Absent: systolic murmur, diastolic murmur, rubs, gallop, clicks GI/Abdominal exam: Present: soft, normal bowel sounds. Absent: distended, tenderness, guarding, rebound, rigid Extremities exam: Present: normal capillary refill, pedal edema, other (Nonpitting, symmetrical, bilateral lower extremity edema) Back exam: Present: normal inspection, tenderness (Tenderness upon palpation of the entire lower back and sacral area), other (Pain worsens with movement) Neurological exam: Present: alert, oriented X3, normal gait Psychiatric exam: Present: flat affect Skin exam: Present: warm, dry, intact, normal color. Absent: rash Course Vital Signs 04/12/21 04/12/21 11:55 16:55 Temperature 98.1 F 98.3 F Pulse Rate 76 71 Respiratory 18 20 Rate Blood Pressure 102/71 112/77 O2 Sat by Pulse 99 98 Oximetry Medical Decision Making - Medical Decision Making This is a 60-year-old female with a history of chronic back pain and multiple medical conditions, who presents to the emergency department for evaluation of low back pain status post trip and fall prior to arrival. Upon exam, patient is well-appearing and in no acute distress. She is moving freely and is able to reposition without difficulty. Patient states she has difficulty with her gait due to chronic lower extremity edema. This provider witnessed patient's fall prior to the start of shift. I assisted her to standing and ambulated patient to the emergency department triage area where she was steady on her feet. Patient did not hit her head or experience any loss of consciousness. She was alert and oriented after her fall and able to articulate events clearly. Upon exam, patient has tenderness upon palpation of the lower spine and sacral region. No loss of bowel or bladder control. No focal neurological deficits. X-rays were obtained and show no acute findings. Patient will be discharged home to follow up with her primary care provider and orthopedist. Return parameters were discussed in detail. Patient verbalizes understanding and agrees with this plan. This patient's care was discussed with my attending Dr. Thomas. - Radiology Data Radiology results: report reviewed, image reviewed X-ray of the sacrum and coccyx was obtained. Report was reviewed in its entirety. Impression per Dr. Dominguez is questionable mild deformity superior endplate of L3 only partially included on the single views. Could be positional. Dedicated lumbar spine x-ray series recommended. X-ray of the lumbar spine was obtained. Report was reviewed in its entirety. Impression per Dr. Mercer alignment is stable and unchanged from recent studies. There are sutures in the epigastric region from a gastric sleeve surgery redemonstrated. Disposition Clinical Impression: Low back pain, Fall Disposition: HOME SELF-CARE Condition: Stable Instructions (If sedation given, give patient instructions): Back Pain (ED), Fall Prevention (ED) Additional Instructions: Follow up with your primary care provider for recheck as scheduled. Take your home medications exactly as directed. Return to the emergency department with any new, worsening, or concerning symptoms. Is patient prescribed a controlled substance at d/c from ED?: No Referrals: Júnior Hancock MD [Primary Care Provider] - 1-2 days Time of Disposition: 16:35
--- NOTE | 2021-04-12 15:48 | XR ---
EXAMINATION TYPE: XR sacrum coccyx DATE OF EXAM: 04/12/2021 COMPARISON: NONE HISTORY: Pain Three views are submitted. Sacrum is intact. SI joints are symmetric. Coccyx appears to be intact. Visualized pelvic structures intact. Diffuse osteopenia with severe degenerative disc disease at a ll levels. Multilevel arthropathy. There is arthropathy of the SI joints. IMPRESSION: 1. Questionable mild deformity superior end plate of L3 only partially included on the single views. Could be positional. Dedicated lumbar spine x-ray series recommended
--- NOTE | 2021-04-12 15:48 | XR ---
EXAMINATION TYPE: XR lumbar spine 1V DATE OF EXAM: 04/12/2021 COMPARISON: Lumbar spine x-ray September 11, 2020. CT lumbar spine February 14, 2021 HISTORY: Fall injury with low back pain. TECHNIQUE: Single frontal view of lumbar spine performed as ordered. FINDINGS: There are 5 lumbar type vertebra redemonstrated. Alignment is stable and unchanged from rec ent studies. There are sutures epigastric region from gastric sleeve surgery redemonstrated. IMPRESSION: As above.
[2021-04-12 16:56] VITALS: BP 112/77; PULSE 71; RESP 20; TEMP 98.3
== END 2021-04-12 16:55 | disposition home or self-care (01) ==
LOC: EC 11:05
DX: M54.59 Other low back pain (principal); I11.0 Hypertensive heart disease with heart failure; I50.9 Heart failure, unspecified; E78.5 Hyperlipidemia, unspecified; M19.90 Unspecified osteoarthritis, unspecified site; J45.909 Unspecified asthma, uncomplicated; E07.9 Disorder of thyroid, unspecified; F32.A Depression, unspecified; Z79.82 Long term (current) use of aspirin; Z88.0 Allergy status to penicillin; Z88.1 Allergy status to other antibiotic agents; Z91.040 Latex allergy status; Z98.84 Bariatric surgery status; Z90.49 Acquired absence of other specified parts of digestive tract; Z90.710 Acquired absence of both cervix and uterus
CPT/HCPCS: 72020; 72220; 99283

== ENCOUNTER → 2021-04-15 | Outpatient (CLI) | payer MEDICARE, OTHER ==
[2021-04-15 14:53] VITALS: BP 117/83; PULSE 73; RESP 16; TEMP 98.1
--- NOTE | 2021-04-15 16:49 | P.HPBAR ---
Bariatric H&P - History & Physicial H&P Date: 04/15/21 History & Physicial: Visit/CC: f/u Patient initial contact: Initial weight: 137.438 kg Initial weight in pounds: 303.00 Height: 5 ft 7 in Initial BMI: 47.4 Last weight: Current weight: 87.09 kg Current weight in pounds: 192.00 Current BMI: 30.0 [place] body weight (based on NIH guidelines): 61.235 kg Excess body weight loss: 66.0% The patient is a 60 year-old F who presents for Bariatric Assessment. Patient presents today for bariatric follow. Her weight has been stable. Patient has minimal GERD. Past Medical History Past Medical History: Asthma, Chest Pain / Angina, Heart Failure, Hyperlipidemia, Hypertension, Osteoarthritis (OA), Seizure Disorder, Skin Disorder, Sleep Apnea/CPAP/BIPAP, Thyroid Disorder Additional Past Medical History / Comment(s): PT STATES NO LONGER TAKING RX FOR HTN. See Dr Jennings H&P, LAST KNOWN SEIZURE approximately first of april 2020, developementally disabled, restless leg syndrome, cervical and back pain with pain down bilateral legs, leg weakness, occasional numbness and tingling to bilateral hands and feet,cpap used currently, abdominal pain. (diarrhea)- right after eating, states has had recent falls, persistant itching-cause unknown, sees pain specialist for chronic pain (entire body). last seizure January 01, 2021. History of Any Multi-Drug Resistant Organisms: None Reported Past Surgical History: Adenoidectomy, Bariatric Surgery, Cholecystectomy, Heart Catheterization, Hysterectomy, Tonsillectomy Additional Past Surgical History / Comment(s): cervical surgery/cage, sleeve gastrectomy 12-01-18; DR JENNINGS placed LOOP RECORDER on 05/28/2020 - Past Anesthesia/Blood Transfusion Reactions: Previous Problems w/ Anesthesia Additional Past Anesthesia/Blood Transfusion Reaction / Comm: states "was told by my sister's boyfriend that I had trouble breathing and almost during my neck surgery",no hx blood transfusion Date of Last Stent Placement:: 06/03/2014 Type of Cardiac Device: Unknown Device Placement Date:: 05/28/2020 Past Psychological History: Depression Additional Psychological History / Comment(s): Pt states she currently resides with her sister. She is mildly developmentally delayed. 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 Past Drug Use History: None Reported - Past Family History Father Family Medical History: Cancer Additional Family Medical History / Comment(s): stomach Sister(s) Family Medical History: Cancer Additional Family Medical History / Comment(s): stomach CA Mother Family Medical History: No Reported History Additional Family Medical History / Comment(s): . Surgical - Exam Vital Signs Temp Pulse Resp BP 98.1 F 73 16 117/83 04/15/21 14:49 04/15/21 14:49 04/15/21 14:49 04/15/21 14:49 - General well developed, well nourished, no distress - Eyes PERRL - ENT normal pinna - Neck no masses - Respiratory normal expansion - Cardiovascular Rhythm: regular - Abdomen Abdomen: soft, non tender Bariatric Assessment & Plan Plan: Morbid obesity. Patient weight has been stable. Her GERD is minimal and will be observed. Bariatric Checklist Checklist: Plan: Checklist: EGD: 1. Hiatal hernia: 2. H. Pylori: HgbA1c: Vitamin D: Smoking: Never smoker Primary care physician referral: PCP Barbara Carter=, [facility] clearance: Cardiology clearance: Sleep study: Diet journal: VTE risk score: VTE risk level: Rehab needs at discharge:
[2021-04-15 18:39] LABS: HCT 40.5 % (34.0-46.0); MCH 31.4 pg (25.0-35.0); MCHC 32.2 g/dL (31.0-37.0); MCV 97.6 fL (80.0-100.0); Mean Platelet Volume 8.3; Platelet Count 295 k/uL (150-450); RBC 4.15 m/uL (3.80-5.40); RDW 13.1 % (11.5-15.5); WBC 5.8 k/uL (3.8-10.6)
[2021-04-16 02:26] LABS: % Iron Saturation 19.43 (12.00-45.00); ALT 8 U/L (8-44); AST 15 U/L (13-35); Albumin/Globulin Ratio 1.42 (1.60-3.17); Alkaline Phosphatase 80 U/L (41-126); BUN/Creat Ratio 21.53 Ratio (12.00-20.00); Calcium 9.4 mg/dL (8.7-10.3); Carbon Dioxide 25.7 mmol/L (20.0-27.5); Chloride 102 mmol/L (96-109); Ferritin 50.6 ng/mL (10.0-291.0); Globulin 2.8 g/dL (1.6-3.3); Glucose 101 mg/dL (70-110); Iron 61 ug/dL (50-170); Non-African American GFR(CKD) 88.9 (60.0-200.0); Potassium 3.8 mmol/L (3.5-5.5); Sodium 141 mmol/L (135-145); Total Iron Binding Capacity 315 ug/dL (228-460); Total Protein 6.8 g/dL (6.2-8.2)
[2021-04-16 03:43] LABS: Folate, Serum >20.00 ng/mL (4.40-31.00)
[2021-04-16 12:55] LABS: Zinc, Serum 71 ug/dL (60-130)
[2021-04-17 06:15] LABS: Vitamin A 47 ug/dL (38-106)
[2021-04-17 07:08] LABS: Vit B1(Thiamine) 68 ug/L (38-122)
== END ==
LOC: BARWHC3 12:53
PROVIDERS: ATTEND Surgery
DX: E66.01 Morbid (severe) obesity due to excess calories (principal); K21.9 Gastro-esophageal reflux disease without esophagitis; J45.909 Unspecified asthma, uncomplicated; E78.5 Hyperlipidemia, unspecified; I11.0 Hypertensive heart disease with heart failure; I50.9 Heart failure, unspecified; M19.90 Unspecified osteoarthritis, unspecified site; G40.909 Epilepsy, unspecified, not intractable, without status epilepticus; F32.A Depression, unspecified; Z68.30 Body mass index [BMI] 30.0-30.9, adult; Z91.048 Other nonmedicinal substance allergy status; Z91.030 Bee allergy status; Z88.8 Allergy status to other drugs, medicaments and biological substances; Z88.6 Allergy status to analgesic agent; Z91.040 Latex allergy status; Z88.0 Allergy status to penicillin
CPT/HCPCS: 84255; 84425; 80053; 82607; 82728; 82746; 83540; 83550; 83735; 84443; 84590; 84630; 85027; 82306; 36415; G0463; 99211

== ENCOUNTER → 2021-06-03 | Outpatient (CLI) | payer MEDICARE, OTHER ==
[2021-06-03 13:13] VITALS: BP 127/87; PULSE 64; RESP 18; TEMP 98.4; BMI 30.5
--- NOTE | 2021-06-03 14:37 | P.HPBAR ---
Bariatric H&P - History & Physicial H&P Date: 06/03/21 History & Physicial: Visit/CC: follow up Patient initial contact: Initial weight: 137.438 kg Initial weight in pounds: 303.00 Height: 5 ft 7 in Initial BMI: 47.4 Last weight: Current weight: 88.451 kg Current weight in pounds: 195.00 Current BMI: 30.5 [place] body weight (based on NIH guidelines): 61.235 kg Excess body weight loss: 64.2% The patient is a 60 year-old F who presents for Bariatric Assessment. Patient presents today for patch follow. She's had some mild GERD. She recently was diagnosed with covid Past Medical History Past Medical History: Asthma, Chest Pain / Angina, Heart Failure, Hyperlipidemia, Hypertension, Osteoarthritis (OA), Seizure Disorder, Skin Disorder, Sleep Apnea/CPAP/BIPAP, Thyroid Disorder Additional Past Medical History / Comment(s): PT STATES NO LONGER TAKING RX FOR HTN. See Dr Jennings H&P, LAST KNOWN SEIZURE approximately first of april 2020, developementally disabled, restless leg syndrome, cervical and back pain with pain down bilateral legs, leg weakness, occasional numbness and tingling to bilateral hands and feet,cpap used currently, abdominal pain. (diarrhea)- right after eating, states has had recent falls, persistant itching-cause unknown, sees pain specialist for chronic pain (entire body). last seizure January 01, 2021. History of Any Multi-Drug Resistant Organisms: None Reported Past Surgical History: Adenoidectomy, Bariatric Surgery, Cholecystectomy, Heart Catheterization, Hysterectomy, Tonsillectomy Additional Past Surgical History / Comment(s): cervical surgery/cage, sleeve gastrectomy 12-01-18; DR JENNINGS placed LOOP RECORDER on 05/28/2020 - Past Anesthesia/Blood Transfusion Reactions: Previous Problems w/ Anesthesia Additional Past Anesthesia/Blood Transfusion Reaction / Comm: states "was told by my sister's boyfriend that I had trouble breathing and almost during my neck surgery",no hx blood transfusion Date of Last Stent Placement:: 06/03/2014 Type of Cardiac Device: Unknown Device Placement Date:: 05/28/2020 Past Psychological History: Depression Additional Psychological History / Comment(s): Pt states she currently resides with her sister. She is mildly developmentally delayed. 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 Past Drug Use History: None Reported - Past Family History Father Family Medical History: Cancer Additional Family Medical History / Comment(s): stomach Sister(s) Family Medical History: Cancer Additional Family Medical History / Comment(s): stomach CA Mother Family Medical History: No Reported History Additional Family Medical History / Comment(s): . Surgical - Exam Vital Signs Temp Pulse Resp BP 98.4 F 64 18 127/87 06/03/21 12:50 06/03/21 12:50 06/03/21 12:50 06/03/21 12:50 - General well developed, well nourished, no distress - Eyes PERRL - ENT normal pinna, normal nares, normal mucosa - Neck no masses - Respiratory normal expansion - Cardiovascular Rhythm: regular - Abdomen Abdomen: soft, non tender Bariatric Assessment & Plan Plan: Morbid obesity. Patient's girth and will be observed. She'll follow-up in 4 weeks. Bariatric Checklist Checklist: Plan: Checklist: EGD: 1. Hiatal hernia: 2. H. Pylori: HgbA1c: Vitamin D: Smoking: Never smoker Primary care physician referral: PCP Barbara Carter=, Rope Making Machine Operator=[facility] clearance: Cardiology clearance: Sleep study: Diet journal: VTE risk score: VTE risk level: Rehab needs at discharge:
== END ==
LOC: BARWHC3 12:11
PROVIDERS: ATTEND Surgery
DX: E66.01 Morbid (severe) obesity due to excess calories (principal); J45.909 Unspecified asthma, uncomplicated; E78.5 Hyperlipidemia, unspecified; M19.90 Unspecified osteoarthritis, unspecified site; G40.909 Epilepsy, unspecified, not intractable, without status epilepticus; I11.0 Hypertensive heart disease with heart failure; I50.9 Heart failure, unspecified; Z98.84 Bariatric surgery status; F32.A Depression, unspecified; Z68.30 Body mass index [BMI] 30.0-30.9, adult; Z91.048 Other nonmedicinal substance allergy status; Z91.030 Bee allergy status; Z88.8 Allergy status to other drugs, medicaments and biological substances; Z88.6 Allergy status to analgesic agent; Z91.040 Latex allergy status; Z88.0 Allergy status to penicillin; Z79.82 Long term (current) use of aspirin; Z79.899 Other long term (current) drug therapy
CPT/HCPCS: 99211

== ENCOUNTER → 2021-07-01 | Outpatient (CLI) | payer MEDICARE, OTHER ==
[2021-07-01 12:59] VITALS: BP 123/87; PULSE 61; RESP 16; TEMP 97.9; BMI 30.7
--- NOTE | 2021-07-01 15:57 | P.HPBAR ---
Bariatric H&P - History & Physicial H&P Date: 07/01/21 History & Physicial: Visit/CC: f/u Patient initial contact: Initial weight: 137.438 kg Initial weight in pounds: 303.00 Height: 5 ft 7 in Initial BMI: 47.4 Last weight: Current weight: 88.904 kg Current weight in pounds: 196.00 Current BMI: 30.7 [place] body weight (based on NIH guidelines): 61.235 kg Excess body weight loss: 63.6% The patient is a 60 year-old F who presents for Bariatric Assessment. She resents today for bariatric follow-up. She's had some complaints of GERD. Her weight has been stable. Past Medical History Past Medical History: Asthma, Chest Pain / Angina, Heart Failure, Hyperlipidemia, Hypertension, Osteoarthritis (OA), Seizure Disorder, Skin Disorder, Sleep Apnea/CPAP/BIPAP, Thyroid Disorder Additional Past Medical History / Comment(s): PT STATES NO LONGER TAKING RX FOR HTN. See Dr Jennings H&P, LAST KNOWN SEIZURE approximately first of april 2020, developementally disabled, restless leg syndrome, cervical and back pain with pain down bilateral legs, leg weakness, occasional numbness and tingling to bilateral hands and feet,cpap used currently, abdominal pain. (diarrhea)- right after eating, states has had recent falls, persistant itching-cause unknown, sees pain specialist for chronic pain (entire body). last seizure January 01, 2021. History of Any Multi-Drug Resistant Organisms: None Reported Past Surgical History: Adenoidectomy, Bariatric Surgery, Cholecystectomy, Heart Catheterization, Hysterectomy, Tonsillectomy Additional Past Surgical History / Comment(s): cervical surgery/cage, sleeve gastrectomy 12-01-18; DR JENNINGS placed LOOP RECORDER on 05/28/2020 - Past Anesthesia/Blood Transfusion Reactions: Previous Problems w/ Anesthesia Additional Past Anesthesia/Blood Transfusion Reaction / Comm: states "was told by my sister's boyfriend that I had trouble breathing and almost during my neck surgery",no hx blood transfusion Date of Last Stent Placement:: 06/03/2014 Type of Cardiac Device: Unknown Device Placement Date:: 05/28/2020 Past Psychological History: Depression Additional Psychological History / Comment(s): Pt states she currently resides with her sister. She is mildly developmentally delayed. 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 Past Drug Use History: None Reported - Past Family History Father Family Medical History: Cancer Additional Family Medical History / Comment(s): stomach Sister(s) Family Medical History: Cancer Additional Family Medical History / Comment(s): stomach CA Mother Family Medical History: No Reported History Additional Family Medical History / Comment(s): . Surgical - Exam Vital Signs Temp Pulse Resp BP 97.9 F 61 16 123/87 07/01/21 12:57 07/01/21 12:57 07/01/21 12:57 07/01/21 12:57 - General well developed, well nourished, no distress - Eyes PERRL - ENT normal pinna - Neck no masses - Respiratory normal expansion - Cardiovascular Rhythm: regular - Abdomen Abdomen: soft, non tender Bariatric Assessment & Plan Plan: Status post sleeve gastrectomy. Patient's GERD is minimal will be observed. She'll follow-up in 4 weeks. Bariatric Checklist Checklist: Plan: Checklist: EGD: 1. Hiatal hernia: 2. H. Pylori: HgbA1c: Vitamin D: Smoking: Never smoker Primary care physician referral: PCP Barbara Carter=, Linseed Cake Trimmer=[facility] clearance: Cardiology clearance: Sleep study: Diet journal: VTE risk score: VTE risk level: Rehab needs at discharge:
== END ==
LOC: BARWHC3 12:30
PROVIDERS: ATTEND Surgery
DX: Z09 Encounter for follow-up examination after completed treatment for conditions other than malignant neoplasm (principal); J45.909 Unspecified asthma, uncomplicated; I11.0 Hypertensive heart disease with heart failure; I50.9 Heart failure, unspecified; E78.5 Hyperlipidemia, unspecified; K21.9 Gastro-esophageal reflux disease without esophagitis; M19.90 Unspecified osteoarthritis, unspecified site; G40.909 Epilepsy, unspecified, not intractable, without status epilepticus; F32.A Depression, unspecified; Z98.84 Bariatric surgery status; Z91.048 Other nonmedicinal substance allergy status; Z91.030 Bee allergy status; Z91.040 Latex allergy status; Z88.0 Allergy status to penicillin; Z88.1 Allergy status to other antibiotic agents; Z88.6 Allergy status to analgesic agent; Z88.8 Allergy status to other drugs, medicaments and biological substances
CPT/HCPCS: 99211

== ENCOUNTER → 2021-08-19 | Outpatient (CLI) | payer MEDICARE, OTHER ==
[2021-08-19 15:02] VITALS: BP 135/90; PULSE 90; TEMP 98; BMI 30.8
--- NOTE | 2021-08-19 15:28 | P.HPBAR ---
Bariatric H&P - History & Physicial H&P Date: 08/19/21 History & Physicial: Visit/CC: sleeve follow up Patient initial contact: Initial weight: 137.438 kg Initial weight in pounds: 303.00 Height: 5 ft 7 in Initial BMI: 47.4 Last weight: Current weight: 89.358 kg Current weight in pounds: 197.00 Current BMI: 30.8 [place] body weight (based on NIH guidelines): 61.235 kg Excess body weight loss: 63.0% The patient is a 60 year-old F who presents for Bariatric Assessment. Patient presents today for bariatric follow-up. She's had some complaints of mild GERD. Her weight is remain stable. Past Medical History Past Medical History: Asthma, Chest Pain / Angina, Heart Failure, Hyperlipidemia, Hypertension, Osteoarthritis (OA), Seizure Disorder, Skin Disorder, Sleep Apnea/CPAP/BIPAP, Thyroid Disorder Additional Past Medical History / Comment(s): PT STATES NO LONGER TAKING RX FOR HTN. See Dr Jennings H&P, LAST KNOWN SEIZURE approximately first of april 2020, developementally disabled, restless leg syndrome, cervical and back pain with pain down bilateral legs, leg weakness, occasional numbness and tingling to bilateral hands and feet,cpap used currently, abdominal pain. (diarrhea)- right after eating, states has had recent falls, persistant itching-cause unknown, sees pain specialist for chronic pain (entire body). last seizure January 01, 2021. History of Any Multi-Drug Resistant Organisms: None Reported Past Surgical History: Adenoidectomy, Bariatric Surgery, Cholecystectomy, Heart Catheterization, Hysterectomy, Tonsillectomy Additional Past Surgical History / Comment(s): cervical surgery/cage, sleeve gastrectomy 12-01-18; DR JENNINGS placed LOOP RECORDER on 05/28/2020 - Past Anesthesia/Blood Transfusion Reactions: Previous Problems w/ Anesthesia Additional Past Anesthesia/Blood Transfusion Reaction / Comm: states "was told by my sister's boyfriend that I had trouble breathing and almost during my neck surgery",no hx blood transfusion Date of Last Stent Placement:: 06/03/2014 Type of Cardiac Device: Unknown Device Placement Date:: 05/28/2020 Past Psychological History: Depression Additional Psychological History / Comment(s): Pt states she currently resides with her sister. She is mildly developmentally delayed. 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 Past Drug Use History: None Reported - Past Family History Father Family Medical History: Cancer Additional Family Medical History / Comment(s): stomach Sister(s) Family Medical History: Cancer Additional Family Medical History / Comment(s): stomach CA Mother Family Medical History: No Reported History Additional Family Medical History / Comment(s): . Surgical - Exam Vital Signs Temp Pulse BP 98 F 90 135/90 08/19/21 15:01 08/19/21 15:01 08/19/21 15:01 - General well developed, well nourished, no distress - Eyes PERRL - ENT normal pinna - Neck no masses - Respiratory normal expansion - Cardiovascular Rhythm: regular - Abdomen Abdomen: soft, non tender Bariatric Assessment & Plan Plan: Resolving morbid obesity. Patient is minimal and will be observed. She'll follow-up in 4 weeks. Bariatric Checklist Checklist: Plan: Checklist: EGD: 1. Hiatal hernia: 2. H. Pylori: HgbA1c: Vitamin D: Smoking: Never smoker Primary care physician referral: PCP Júnior Hancock, Pain=, Captain Waiter=[facility] clearance: Cardiology clearance: Sleep study: Diet journal: VTE risk score: VTE risk level: Rehab needs at discharge:
== END ==
LOC: BARWHC3 14:25
PROVIDERS: ATTEND Surgery
DX: E66.01 Morbid (severe) obesity due to excess calories (principal); K21.9 Gastro-esophageal reflux disease without esophagitis; J45.909 Unspecified asthma, uncomplicated; I50.9 Heart failure, unspecified; E78.5 Hyperlipidemia, unspecified; M19.90 Unspecified osteoarthritis, unspecified site; G40.909 Epilepsy, unspecified, not intractable, without status epilepticus; I10 Essential (primary) hypertension; Z98.84 Bariatric surgery status; Z68.30 Body mass index [BMI] 30.0-30.9, adult; Z91.048 Other nonmedicinal substance allergy status; Z91.030 Bee allergy status; Z88.0 Allergy status to penicillin; Z91.040 Latex allergy status; Z88.6 Allergy status to analgesic agent; Z88.8 Allergy status to other drugs, medicaments and biological substances
CPT/HCPCS: 99211

== ENCOUNTER → 2021-09-30 | Outpatient (CLI) | payer MEDICARE, OTHER ==
[2021-09-30 13:42] VITALS: BP 136/86; PULSE 71; TEMP 98.5; BMI 31.6
--- NOTE | 2021-09-30 15:51 | P.HPBAR ---
Bariatric H&P - History & Physicial H&P Date: 09/30/21 History & Physicial: Visit/CC: sleeve f/u Patient initial contact: Initial weight: 137.438 kg Initial weight in pounds: 303.00 Height: 5 ft 7 in Initial BMI: 47.4 Last weight: 197 Current weight: 91.626 kg Current weight in pounds: 202.00 Current BMI: 31.6 [place] body weight (based on NIH guidelines): 61.235 kg Excess body weight loss: 60.1% The patient is a 60 year-old F who presents for Bariatric Assessment. Patient presents today for sleeve gastrectomy follow-up. She's had some complaints of GERD. She is denies any abdominal pain she's had a slight increase in her weight. Past Medical History Past Medical History: Asthma, Chest Pain / Angina, Heart Failure, Hyperlipidemia, Hypertension, Osteoarthritis (OA), Seizure Disorder, Skin Disorder, Sleep Apnea/CPAP/BIPAP, Thyroid Disorder Additional Past Medical History / Comment(s): PT STATES NO LONGER TAKING RX FOR HTN. See Dr Jennings H&P, LAST KNOWN SEIZURE approximately first of april 2020, developementally disabled, restless leg syndrome, cervical and back pain with pain down bilateral legs, leg weakness, occasional numbness and tingling to bilateral hands and feet,cpap used currently, abdominal pain. (diarrhea)- right after eating, states has had recent falls, persistant itching-cause unknown, sees pain specialist for chronic pain (entire body). last seizure January 01, 2021. History of Any Multi-Drug Resistant Organisms: None Reported Past Surgical History: Adenoidectomy, Bariatric Surgery, Cholecystectomy, Heart Catheterization, Hysterectomy, Tonsillectomy Additional Past Surgical History / Comment(s): cervical surgery/cage, sleeve gastrectomy 12-01-18; DR JENNINGS placed LOOP RECORDER on 05/28/2020 - Past Anesthesia/Blood Transfusion Reactions: Previous Problems w/ Anesthesia Additional Past Anesthesia/Blood Transfusion Reaction / Comm: states "was told by my sister's boyfriend that I had trouble breathing and almost during my neck surgery",no hx blood transfusion Date of Last Stent Placement:: 06/03/2014 Type of Cardiac Device: Unknown Device Placement Date:: 05/28/2020 Past Psychological History: Depression Additional Psychological History / Comment(s): Pt states she currently resides with her sister. She is mildly developmentally delayed. 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 Past Drug Use History: None Reported - Past Family History Father Family Medical History: Cancer Additional Family Medical History / Comment(s): stomach Sister(s) Family Medical History: Cancer Additional Family Medical History / Comment(s): stomach CA Mother Family Medical History: No Reported History Additional Family Medical History / Comment(s): . Surgical - Exam Vital Signs Temp Pulse BP 98.5 F 71 136/86 09/30/21 13:35 09/30/21 13:35 09/30/21 13:35 - General well developed, well nourished, no distress - Eyes PERRL - Abdomen Abdomen: soft, non tender Bariatric Assessment & Plan Plan: Status post sleeve gastrectomy. Patient's GERD is minimal observed. Patient believes that her weight gain may be due to some water weight. She is increase her diuretic. She'll follow-up in 4 weeks. Bariatric Checklist Checklist: Plan: Checklist: EGD: 1. Hiatal hernia: 2. H. Pylori: HgbA1c: Vitamin D: Smoking: Never smoker Primary care physician referral: PCP Barbara Carter=, Manager Entry=[facility] clearance: Cardiology clearance: Sleep study: Diet journal: VTE risk score: VTE risk level: Rehab needs at discharge:
== END ==
LOC: BARWHC3 13:18
PROVIDERS: ATTEND Surgery
DX: Z09 Encounter for follow-up examination after completed treatment for conditions other than malignant neoplasm (principal); K21.9 Gastro-esophageal reflux disease without esophagitis; J45.909 Unspecified asthma, uncomplicated; I11.0 Hypertensive heart disease with heart failure; I50.9 Heart failure, unspecified; E78.5 Hyperlipidemia, unspecified; M19.90 Unspecified osteoarthritis, unspecified site; G40.909 Epilepsy, unspecified, not intractable, without status epilepticus; Z98.84 Bariatric surgery status; F32.A Depression, unspecified; Z91.048 Other nonmedicinal substance allergy status; Z91.030 Bee allergy status; Z88.6 Allergy status to analgesic agent; Z91.040 Latex allergy status; Z88.0 Allergy status to penicillin; Z88.8 Allergy status to other drugs, medicaments and biological substances
CPT/HCPCS: 99211

== ENCOUNTER → 2021-11-18 | Outpatient (CLI) | payer MEDICARE, OTHER ==
[2021-11-18 14:48] VITALS: BP 142/83; PULSE 64; TEMP 98.5; BMI 31.4
--- NOTE | 2021-11-19 16:04 | P.HPBAR ---
Bariatric H&P - History & Physicial H&P Date: 11/18/21 History & Physicial: Visit/CC: sleeve f/u Patient initial contact: Initial weight: 137.438 kg Initial weight in pounds: 303.00 Height: 5 ft 7 in Initial BMI: 47.4 Last weight: Current weight: 91.172 kg Current weight in pounds: 201.00 Current BMI: 31.4 [place] body weight (based on NIH guidelines): 61.235 kg Excess body weight loss: 60.7% The patient is a 61 year-old F who presents for Bariatric Assessment. Patient resents today for bariatric follow-up. She currently weighs 201 pounds. Her last weight was 207 pounds. She has some mild GERD. Past Medical History Past Medical History: Asthma, Chest Pain / Angina, Heart Failure, Hyperlipidemia, Hypertension, Osteoarthritis (OA), Seizure Disorder, Skin Disorder, Sleep Apnea/CPAP/BIPAP, Thyroid Disorder Additional Past Medical History / Comment(s): PT STATES NO LONGER TAKING RX FOR HTN. See Dr Jennings H&P, LAST KNOWN SEIZURE approximately first of april 2020, developementally disabled, restless leg syndrome, cervical and back pain with pain down bilateral legs, leg weakness, occasional numbness and tingling to bilateral hands and feet,cpap used currently, abdominal pain. (diarrhea)- right after eating, states has had recent falls, persistant itching-cause unknown, sees pain specialist for chronic pain (entire body). last seizure January 01, 2021. History of Any Multi-Drug Resistant Organisms: None Reported Past Surgical History: Adenoidectomy, Bariatric Surgery, Cholecystectomy, Heart Catheterization, Hysterectomy, Tonsillectomy Additional Past Surgical History / Comment(s): cervical surgery/cage, sleeve gastrectomy 12-01-18; DR JENNINGS placed LOOP RECORDER on 05/28/2020 - Past Anesthesia/Blood Transfusion Reactions: Previous Problems w/ Anesthesia Additional Past Anesthesia/Blood Transfusion Reaction / Comm: states "was told by my sister's boyfriend that I had trouble breathing and almost during my neck surgery",no hx blood transfusion Date of Last Stent Placement:: 06/03/2014 Type of Cardiac Device: Unknown Device Placement Date:: 05/28/2020 Past Psychological History: Depression Additional Psychological History / Comment(s): Pt states she currently resides with her sister. She is mildly developmentally delayed. 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 Past Drug Use History: None Reported - Past Family History Father Family Medical History: Cancer Additional Family Medical History / Comment(s): stomach Sister(s) Family Medical History: Cancer Additional Family Medical History / Comment(s): stomach CA Mother Family Medical History: No Reported History Additional Family Medical History / Comment(s): . Surgical - Exam Vital Signs Temp Pulse BP 98.5 F 64 142/83 11/18/21 14:44 11/18/21 14:44 11/18/21 14:44 - General well developed, well nourished, no distress - Abdomen Abdomen: soft, non tender Bariatric Assessment & Plan Plan: Patient status post sleeve yesterday. Her GERD is minimal will be observed. She'll follow-up in 4 weeks. Bariatric Checklist Checklist: Plan: Checklist: EGD: 1. Hiatal hernia: 2. H. Pylori: HgbA1c: Vitamin D: Smoking: Never smoker Primary care physician referral: PCP Barbara Carter=, Produce Weigher=[facility] clearance: Cardiology clearance: Sleep study: Diet journal: VTE risk score: VTE risk level: Rehab needs at discharge:
== END ==
LOC: BARWHC3 14:06
PROVIDERS: ATTEND Surgery
DX: Z09 Encounter for follow-up examination after completed treatment for conditions other than malignant neoplasm (principal); K21.9 Gastro-esophageal reflux disease without esophagitis; J45.909 Unspecified asthma, uncomplicated; I11.0 Hypertensive heart disease with heart failure; I50.9 Heart failure, unspecified; E78.5 Hyperlipidemia, unspecified; M19.90 Unspecified osteoarthritis, unspecified site; G40.909 Epilepsy, unspecified, not intractable, without status epilepticus; F32.A Depression, unspecified; Z98.84 Bariatric surgery status; Z79.82 Long term (current) use of aspirin; Z79.899 Other long term (current) drug therapy; Z91.048 Other nonmedicinal substance allergy status; Z91.030 Bee allergy status; Z88.8 Allergy status to other drugs, medicaments and biological substances; Z91.040 Latex allergy status; Z88.0 Allergy status to penicillin; Z88.6 Allergy status to analgesic agent
CPT/HCPCS: 99211

== ENCOUNTER → 2022-01-24 | Outpatient (CLI) | payer MEDICARE, OTHER ==
--- NOTE | 2022-01-27 09:27 | MM ---
Reason for Exam: Screening (asymptomatic). Last mammogram was performed 1 year(s) and 1 month(s) ago. Patient History: Menarche at age 12. Patient has no children. Left ovary removed at age 22. Right ovary removed at age 22. Hysterectomy at age 22. Postmenopausal. Hormonal Contraceptives for 2 months. Maternal aunt had breast cancer at or over age 50. Risk Values: [place] 5 year model risk: 1.7%. NCI Lifetime model risk: 9.1%. Prior Study Comparison: 11/01/2015 Bilateral Screening Mammogram, [facility]. 06/10/2019 Bilateral Screening Mammogram, [facility]. 12/04/2020 Bilateral Screening Mammogram, [facility]. Tissue Density: There are scattered fibroglandular densities. Findings: Analyzed By CAD. Stable prominent tissue right breast subareolar region. There is no suspicious group of microcalcifications or new suspicious mass in either breast. Overall Assessment: Negative, BI-RAD 1 Management: Screening Mammogram of both breasts in 1 year. A clinical breast exam by your physician is recommended on an annual basis and results should be correlated with mammographic findings. Electronically signed and approved by: Dmitriy Mercer M.D.
== END | disposition home or self-care (01) ==
LOC: RADMAMWWP 13:30
PROVIDERS: ATTEND Family Medicine
DX: Z12.31 Encounter for screening mammogram for malignant neoplasm of breast (principal)
CPT/HCPCS: 77063; 77067

== ENCOUNTER → 2022-01-27 | Outpatient (CLI) | payer MEDICARE, OTHER ==
[2022-01-27 12:59] VITALS: BP 118/84; PULSE 69; TEMP 98.4; BMI 30.8
--- NOTE | 2022-01-27 15:10 | P.HPBAR ---
Bariatric H&P - History & Physicial H&P Date: 01/27/22 History & Physicial: Visit/CC: sleeve f/u Patient initial contact: Initial weight: 137.438 kg Initial weight in pounds: 303.00 Height: 5 ft 7 in Initial BMI: 47.4 Last weight: Current weight: 89.358 kg Current weight in pounds: 197.00 Current BMI: 30.8 [place] body weight (based on NIH guidelines): 61.235 kg Excess body weight loss: 63.0% The patient is a 61 year-old F who presents for Bariatric Assessment. Patient resents today for sleeve gastrectomy follow-up. She's had some minimal GERD. Patient states she's recently admitted to the hospital for seizure disorder workup. His had minimal GERD. Past Medical History Past Medical History: Asthma, Chest Pain / Angina, Heart Failure, Hyperlipidemia, Hypertension, Osteoarthritis (OA), Pneumonia, Seizure Disorder, Skin Disorder, Sleep Apnea/CPAP/BIPAP, Thyroid Disorder Additional Past Medical History / Comment(s): PT STATES NO LONGER TAKING RX FOR HTN. See Dr Jennings H&P, LAST KNOWN SEIZURE approximately first of april 2020, developementally disabled, restless leg syndrome, cervical and back pain with pain down bilateral legs, leg weakness, occasional numbness and tingling to bilateral hands and feet,cpap used currently, abdominal pain. (diarrhea)- right after eating, states has had recent falls, persistant itching-cause unknown, sees pain specialist for chronic pain (entire body). last seizure January 01, 2021. Admitted to [facility] Dec 2021 for pneumonia and seizure History of Any Multi-Drug Resistant Organisms: None Reported Past Surgical History: Adenoidectomy, Bariatric Surgery, Cholecystectomy, Heart Catheterization, Hysterectomy, Tonsillectomy Additional Past Surgical History / Comment(s): cervical surgery/cage, sleeve gastrectomy 12-01-18; DR JENNINGS placed LOOP RECORDER on 05/28/2020 - Past Anesthesia/Blood Transfusion Reactions: Previous Problems w/ Anesthesia Additional Past Anesthesia/Blood Transfusion Reaction / Comm: states "was told by my sister's boyfriend that I had trouble breathing and almost during my neck surgery",no hx blood transfusion Date of Last Stent Placement:: 06/03/2014 Type of Cardiac Device: Unknown Device Placement Date:: 05/28/2020 Past Psychological History: Depression Additional Psychological History / Comment(s): Pt states she currently resides with her sister. She is mildly developmentally delayed. 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 Past Drug Use History: None Reported - Past Family History Father Family Medical History: Cancer Additional Family Medical History / Comment(s): stomach Sister(s) Family Medical History: Cancer Additional Family Medical History / Comment(s): stomach CA Mother Family Medical History: No Reported History Additional Family Medical History / Comment(s): . Surgical - Exam Vital Signs Temp Pulse BP 98.4 F 69 118/84 01/27/22 12:54 01/27/22 12:54 01/27/22 12:54 - General well developed, well nourished, no distress - Eyes PERRL - ENT normal pinna - Neck no masses - Respiratory normal expansion - Cardiovascular Rhythm: regular - Abdomen Abdomen: soft, non tender Bariatric Assessment & Plan Plan: Resolving morbid obesity. Patient's GERD is minimal will be observed. She'll follow-up in 4 weeks. Bariatric Checklist Checklist: Plan: Checklist: EGD: 1. Hiatal hernia: 2. H. Pylori: HgbA1c: Vitamin D: Smoking: Never smoker Primary care physician referral: PCP Barbara Carter=, [employer] Psychiatry clearance: Cardiology clearance: Sleep study: Diet journal: VTE risk score: VTE risk level: Rehab needs at discharge:
== END | disposition home or self-care (01) ==
LOC: BARWHC3 12:53
PROVIDERS: ATTEND Surgery
DX: E66.01 Morbid (severe) obesity due to excess calories (principal); Z68.30 Body mass index [BMI] 30.0-30.9, adult
CPT/HCPCS: 99211

== ENCOUNTER 2022-02-20 09:32 | Day surgery (SDC) | payer MEDICARE, OTHER ==
[2022-02-18 10:49] VITALS: BMI 32.3
[2022-02-20 10:08] VITALS: TEMP 96.6
--- NOTE | 2022-02-20 10:34 | P.GSHP ---
History of Present Illness H&P Date: 02/20/22 Chief Complaint: Screening colonoscopy This a 61-year-old female who presents today for screening colonoscopy. She denies a significant GI complaints. Past Medical History Past Medical History: Asthma, Chest Pain / Angina, Heart Failure, GERD/Reflux, Hyperlipidemia, Hypertension, Osteoarthritis (OA), Pneumonia, Seizure Disorder, Skin Disorder, Sleep Apnea/CPAP/BIPAP, Thyroid Disorder Additional Past Medical History / Comment(s): Pinched nerves in back and neck, uses cane. Last seizure 4 weeks ago. "Blood pressure and heart rate go up and down all the time." Developementally disabled. Restless leg syndrome, neck and back pain with pain down bilateral legs, leg weakness, occasional numbness and tingling to bilateral hands and feet. CPAP use. Abdominal pain, diarrhea right after eating. Hx falls, persistant itching-cause unknown. Sees pain specialist for chronic pain. Hx pneumonia dehydration and seizure Dec 2021. Swelling in legs. History of Any Multi-Drug Resistant Organisms: None Reported Past Surgical History: Adenoidectomy, Bariatric Surgery, Cholecystectomy, Heart Catheterization, Hernia Repair, Hysterectomy, Tonsillectomy Additional Past Surgical History / Comment(s): Cervical surgery/cage, sleeve gastrectomy 12-01-18, LOOP RECORDER 05/28/2020. Past Anesthesia/Blood Transfusion Reactions: Previous Problems w/ Anesthesia Additional Past Anesthesia/Blood Transfusion Reaction / Comment(s): "Slow to wake up". States "was told by my sister's boyfriend that I had trouble breathing and almost during my neck surgery". No hx blood transfusion. Date of Last Stent Placement:: 06/03/2014 Type of Cardiac Device: Unknown Device Placement Date:: 05/28/2020 Past Psychological History: Depression Smoking Status: Never smoker Past Alcohol Use History: None Reported Past Drug Use History: None Reported - Past Family History Father Family Medical History: Cancer Additional Family Medical History / Comment(s): Stomach cancer. Sister(s) Family Medical History: Cancer Additional Family Medical History / Comment(s): Stomach cancer. Mother Family Medical History: No Reported History Additional Family Medical History / Comment(s): . Medications and Allergies Home Medications Medication Instructions Recorded Confirmed Type Aspirin EC [Ecotrin Low Dose] 81 mg PO DAILY 02/22/19 02/20/22 History Pantoprazole [Protonix] 40 mg PO HS 11/10/19 02/20/22 History HYDROcodone/APAP 10-325MG [[place] 1 tab PO QID PRN 03/07/20 02/20/22 History 10-325] Gabapentin [Neurontin] 600 mg PO TID 07/09/20 02/20/22 History Albuterol Inhaler [Ventolin Hfa 2 puff INHALATION QID 09/14/20 02/20/22 History Inhaler] Montelukast [Singulair] 10 mg PO HS 09/14/20 02/20/22 History levETIRAcetam [Keppra] 750 mg PO BID 09/14/20 02/20/22 History Alendronate Sodium 70 mg PO FR 01/08/21 02/20/22 History Meclizine [Antivert] 25 mg PO TID PRN 01/23/21 02/20/22 History Potassium Chloride ER [K-Dur 20] 20 meq PO DAILY 04/12/21 02/20/22 History Triamterene/Hydrochlorothiazid 1 cap PO DAILY 04/12/21 02/20/22 History [Dyazide 37.5-25 Capsule] Furosemide [Lasix] 40 mg PO DAILY 09/30/21 02/20/22 History Ferrous Sulfate [Iron] 325 mg PO DAILY 02/18/22 02/20/22 History Levothyroxine Sodium 100 mcg PO QAM 02/18/22 02/20/22 History Allergies Allergy/AdvReac Type Severity Reaction Status Date / Time adhesive Allergy Rash/Hives Verified 02/20/22 09:49 bee venom protein (honey bee) Allergy Anaphylaxis Verified 02/20/22 09:49 buspirone [From BuSpar] Allergy Itching Verified 02/20/22 09:49 divalproex sodium Allergy Swelling Verified 02/20/22 09:49 [From Depakote] ibuprofen [From Motrin] Allergy Rash/Hives Verified 02/20/22 09:49 latex Allergy Rash/Hives Verified 02/20/22 09:49 Penicillins Allergy Rash/Hives Verified 02/20/22 09:49 topiramate [From Topamax] Allergy Swelling Verified 02/20/22 09:49 Surgical - Exam Vital Signs Temp Pulse Resp BP Pulse Ox 96.6 F L 54 L 14 161/79 98 02/20/22 10:06 02/20/22 10:06 02/20/22 10:06 02/20/22 10:06 02/20/22 10:06 - General well developed, well nourished, no distress - Eyes PERRL - ENT normal pinna - Neck no masses - Respiratory normal expansion - Cardiovascular Rhythm: regular - Abdomen Abdomen: soft, non tender Assessment and Plan Assessment: We will perform screening colonoscopy
[2022-02-20] MEDS ORDERED: PROPOFOL 10 MG/ML 20 ML VIAL IV ONE (10:42)
[2022-02-20] MEDS ORDERED: GLYCOPYRROLATE 0.2 MG/ML 2 ML VIAL ONE (10:42)
--- NOTE | 2022-02-20 11:00 | P.OP ---
Date of Procedure: 02/20/22 Preoperative Diagnosis: Screening colonoscopy Postoperative Diagnosis: Diverticulosis Procedure(s) Performed: Colonoscopy Anesthesia: MAC Surgeon: Blayne Sethi Pathology: none sent Condition: stable Disposition: PACU Description of Procedure: Patient's placed on the endoscopy table in the lateral position. She received IV sedation. Digital rectal exam was performed. This revealed no abnormalities. The flexible colonoscope was then placed patient anus and passed throughout the colon. The scope could not be passed beyond the transverse colon secondary to tortuosity valve. Several times made to maneuver the colonoscope however this wasn't possible. Scope was withdrawn. The visualized transverse colon appeared normal. In the descending and sigmoid there was mild diverticular changes seen. Scope was then brought back into the abdomen was normal. Scope withdrawn for patient.
[2022-02-20 11:27] VITALS: RESP 20
[2022-02-20 11:59] VITALS: BP 153/72; PULSE 56
== END 2022-02-20 12:32 | disposition home or self-care (01) ==
LOC: ORWHC2ENDO 09:32
PROVIDERS: ATTEND Surgery
DX: Z12.11 Encounter for screening for malignant neoplasm of colon (principal); J45.909 Unspecified asthma, uncomplicated; I11.0 Hypertensive heart disease with heart failure; K21.9 Gastro-esophageal reflux disease without esophagitis; E78.5 Hyperlipidemia, unspecified; M19.90 Unspecified osteoarthritis, unspecified site; G40.909 Epilepsy, unspecified, not intractable, without status epilepticus; E07.9 Disorder of thyroid, unspecified; Z90.49 Acquired absence of other specified parts of digestive tract; Z90.89 Acquired absence of other organs; Z90.710 Acquired absence of both cervix and uterus; F32.A Depression, unspecified; Z80.0 Family history of malignant neoplasm of digestive organs; Z79.82 Long term (current) use of aspirin; Z79.899 Other long term (current) drug therapy; Z88.6 Allergy status to analgesic agent; Z91.030 Bee allergy status; Z91.040 Latex allergy status; Z88.0 Allergy status to penicillin
CPT/HCPCS: G0121; J2704; 45378

== ENCOUNTER → 2022-03-03 | Outpatient (CLI) | payer MEDICARE, OTHER ==
--- NOTE | 2022-03-03 10:54 | XR ---
EXAMINATION TYPE: XR chest 2V DATE OF EXAM: 03/03/2022 COMPARISON: 01/08/2021 TECHNIQUE: PA and lateral views submitted. HISTORY: Presurgical FINDINGS: The lungs are clear and there is no pneumothorax, pleural effusion, or focal pneumonia. Postoperati ve changes overlying the cervical spine. Subcutaneous cardiac device noted. Heart size normal. No ove rt failure. Mild hyperinflation correlate for COPD. IMPRESSION: 1. No acute process.
== END | disposition home or self-care (01) ==
LOC: RADXRMAIN 10:32
PROVIDERS: ATTEND Family Medicine
DX: J44.9 Chronic obstructive pulmonary disease, unspecified (principal)
CPT/HCPCS: 71046

== ENCOUNTER → 2022-03-10 | Outpatient (CLI) | payer MEDICARE, OTHER ==
[2022-03-10 13:21] VITALS: BP 137/88; PULSE 54; RESP 12; TEMP 97.8; BMI 30.5
--- NOTE | 2022-03-10 15:02 | P.HPBAR ---
Bariatric H&P - History & Physicial H&P Date: 03/10/22 History & Physicial: Visit/CC: follow up Patient initial contact: Initial weight: 137.438 kg Initial weight in pounds: 303.00 Height: 5 ft 7 in Initial BMI: 47.4 Last weight: Current weight: 88.451 kg Current weight in pounds: 195.00 Current BMI: 30.5 [place] body weight (based on NIH guidelines): 61.235 kg Excess body weight loss: 64.2% The patient is a 61 year-old F who presents for Bariatric Assessment. Patient presents today for bariatric follow-up. She is having a procedure done at [facility] for seizures. She has some myoclonus of GERD. Her weight has been relatively stable. She is gained 4 pounds her last visit. Past Medical History Past Medical History: Asthma, Chest Pain / Angina, Heart Failure, GERD/Reflux, Hyperlipidemia, Hypertension, Osteoarthritis (OA), Pneumonia, Seizure Disorder, Skin Disorder, Sleep Apnea/CPAP/BIPAP, Thyroid Disorder Additional Past Medical History / Comment(s): Pinched nerves in back and neck, uses cane. Last seizure 4 weeks ago. "Blood pressure and heart rate go up and down all the time." Developementally disabled. Restless leg syndrome, neck and back pain with pain down bilateral legs, leg weakness, occasional numbness and tingling to bilateral hands and feet. CPAP use. Abdominal pain, diarrhea right after eating. Hx falls, persistant itching-cause unknown. Sees pain specialist for chronic pain. Hx pneumonia dehydration and seizure Dec 2021. Swelling in legs. History of Any Multi-Drug Resistant Organisms: None Reported Past Surgical History: Adenoidectomy, Bariatric Surgery, Cholecystectomy, Heart Catheterization, Hernia Repair, Hysterectomy, Tonsillectomy Additional Past Surgical History / Comment(s): Cervical surgery/cage, sleeve gastrectomy 12-01-18, LOOP RECORDER 05/28/2020. Past Anesthesia/Blood Transfusion Reactions: Previous Problems w/ Anesthesia Additional Past Anesthesia/Blood Transfusion Reaction / Comm: "Slow to wake up". States "was told by my sister's boyfriend that I had trouble breathing and almost during my neck surgery". No hx blood transfusion. Date of Last Stent Placement:: 06/03/2014 Type of Cardiac Device: Unknown Device Placement Date:: 05/28/2020 Past Psychological History: Depression Additional Psychological History / Comment(s): Pt states she currently resides with her sister. She is mildly developmentally delayed. 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 Past Drug Use History: None Reported - Past Family History Father Family Medical History: Cancer Additional Family Medical History / Comment(s): Stomach cancer. Sister(s) Family Medical History: Cancer Additional Family Medical History / Comment(s): Stomach cancer. Mother Family Medical History: No Reported History Additional Family Medical History / Comment(s): . Surgical - Exam Vital Signs Temp Pulse Resp BP 97.8 F 54 L 12 137/88 03/10/22 13:15 03/10/22 13:15 03/10/22 13:15 03/10/22 13:15 - General well developed, well nourished, no distress - Eyes PERRL - ENT normal pinna - Neck no masses - Respiratory normal expansion - Cardiovascular Rhythm: regular - Abdomen Abdomen: soft, non tender Bariatric Assessment & Plan Plan: Status post sleeve gastrectomy. Patient's GERD is minimal and will be observed. She'll follow-up in 4 weeks. Bariatric Checklist Checklist: Plan: Checklist: EGD: 1. Hiatal hernia: 2. H. Pylori: HgbA1c: Vitamin D: Smoking: Never smoker Primary care physician referral: PCP Barbara Carter=, Vice President [employer]=[place] Psychiatry clearance: Cardiology clearance: Sleep study: Diet journal: VTE risk score: VTE risk level: Rehab needs at discharge:
== END ==
LOC: BARWHC3 12:49
PROVIDERS: ATTEND Surgery
DX: Z09 Encounter for follow-up examination after completed treatment for conditions other than malignant neoplasm (principal); E66.01 Morbid (severe) obesity due to excess calories; Z68.30 Body mass index [BMI] 30.0-30.9, adult; Z88.0 Allergy status to penicillin; Z91.040 Latex allergy status; Z88.6 Allergy status to analgesic agent; Z91.030 Bee allergy status; Z88.8 Allergy status to other drugs, medicaments and biological substances; Z91.048 Other nonmedicinal substance allergy status
CPT/HCPCS: 99211

== ENCOUNTER → 2022-03-13 | Outpatient (CLI) | payer MEDICARE, OTHER | END | disposition home or self-care (01) | LOC: LABWHC1 09:31 | PROVIDERS: ATTEND Neurological Surgery | DX: Z20.822 Contact with and (suspected) exposure to COVID-19 (principal); G40.319 Generalized idiopathic epilepsy and epileptic syndromes, intractable, without status epilepticus | CPT/HCPCS: U0003; U0005 ==

== ENCOUNTER 2022-04-14 19:06 | Emergency (ER) | payer MEDICARE, OTHER ==
[2022-04-14 19:18] VITALS: RESP 18; TEMP 97.9
[2022-04-14] MEDS ORDERED: SODIUM CHLORIDE 0.9% 1,000 ML IV STA (20:09)
--- NOTE | 2022-04-14 20:15 | ED ---
General Adult HPI - General Chief complaint: Recheck/Abnormal Lab/Rx Stated complaint: Seizure Time Seen by Provider: 04/14/22 20:02 Source: patient, RN notes reviewed Mode of arrival: ambulatory Limitations: no limitations - History of Present Illness Initial comments: This is a pleasant 61-year-old female who has a history of seizure disorder, congestive heart failure, hypertension, and thyroid disorder. Patient presents to the emergency department today after having what sounds like a staring episode when she was upstairs. Patient was here in the hospital because her sister just . She recalls the entire event. It does not sound as if she lost consciousness. There was no tonic-clonic activity. Patient does take Keppra for seizure control. Patient also on Neurontin. Stat her last staring episode was 2 or 3 months ago. Patient states she has had a history of tonic clonic seizures in the past. Patient states her only complaint right now is a bit of lightheadedness. No headache, no fever or chills, no changes in vision or hearing, no sore throat or difficulty with speech, no neck pain, no chest pain or shortness of breath, no abdominal pain, no nausea or vomiting, no changes in urination or bowel movements, no numbness or tingling, no extremity pain, no skin rashes or lesions. Past medical, surgical, social, and family history reviewed. - Related Data Home Medications Medication Instructions Recorded Confirmed Aspirin EC [Ecotrin Low Dose] 81 mg PO DAILY 02/22/19 04/14/22 Pantoprazole [Protonix] 40 mg PO HS 11/10/19 04/14/22 HYDROcodone/APAP 10-325MG [[place] 1 tab PO QID PRN 03/07/20 04/14/22 10-325] Gabapentin [Neurontin] 600 mg PO TID 07/09/20 04/14/22 Albuterol Inhaler [Ventolin Hfa 2 puff INHALATION QID 09/14/20 04/14/22 Inhaler] Montelukast [Singulair] 10 mg PO HS 09/14/20 04/14/22 levETIRAcetam [Keppra] 750 mg PO BID 09/14/20 04/14/22 Alendronate Sodium 70 mg PO FR 01/08/21 04/14/22 Meclizine [Antivert] 25 mg PO TID PRN 01/23/21 04/14/22 Potassium Chloride ER [K-Dur 20] 20 meq PO DAILY 04/12/21 04/14/22 Triamterene/Hydrochlorothiazid 1 cap PO DAILY 04/12/21 04/14/22 [Dyazide 37.5-25 Capsule] Furosemide [Lasix] 40 mg PO DAILY 09/30/21 04/14/22 Ferrous Sulfate [Iron] 325 mg PO DAILY 02/18/22 04/14/22 Levothyroxine Sodium 100 mcg PO QAM 02/18/22 04/14/22 Previous Rx's Medication Instructions Recorded Potassium Bicarb-Citric Acid 25 meq PO BID #10 tab 04/15/22 [K-Lyte Eff] Allergies Allergy/AdvReac Type Severity Reaction Status Date / Time adhesive Allergy Rash/Hives Verified 03/10/22 13:16 bee venom protein (honey bee) Allergy Anaphylaxis Verified 03/10/22 13:16 buspirone [From BuSpar] Allergy Itching Verified 03/10/22 13:16 divalproex sodium Allergy Swelling Verified 03/10/22 13:16 [From Depakote] ibuprofen [From Motrin] Allergy Rash/Hives Verified 03/10/22 13:16 latex Allergy Rash/Hives Verified 03/10/22 13:16 Penicillins Allergy Rash/Hives Verified 03/10/22 13:16 topiramate [From Topamax] Allergy Swelling Verified 03/10/22 13:16 Review of Systems ROS Statement: Those systems with pertinent positive or pertinent negative responses have been documented in the HPI. ROS Other: All systems not noted in ROS Statement are negative. Past Medical History Past Medical History: Asthma, Chest Pain / Angina, Heart Failure, GERD/Reflux, Hyperlipidemia, Hypertension, Osteoarthritis (OA), Pneumonia, Seizure Disorder, Skin Disorder, Sleep Apnea/CPAP/BIPAP, Thyroid Disorder Additional Past Medical History / Comment(s): Pinched nerves in back and neck, uses cane. Last seizure 4 weeks ago. "Blood pressure and heart rate go up and down all the time." Developementally disabled. Restless leg syndrome, neck and back pain with pain down bilateral legs, leg weakness, occasional numbness and tingling to bilateral hands and feet. CPAP use. Abdominal pain, diarrhea right after eating. Hx falls, persistant itching-cause unknown. Sees pain specialist for chronic pain. Hx pneumonia dehydration and seizure Dec 2021. Swelling in legs. History of Any Multi-Drug Resistant Organisms: None Reported Past Surgical History: Adenoidectomy, Bariatric Surgery, Cholecystectomy, Heart Catheterization, Hernia Repair, Hysterectomy, Tonsillectomy Additional Past Surgical History / Comment(s): Cervical surgery/cage, sleeve gastrectomy 12-01-18, LOOP RECORDER 05/28/2020. Past Anesthesia/Blood Transfusion Reactions: Previous Problems w/ Anesthesia Additional Past Anesthesia/Blood Transfusion Reaction / Comment(s): "Slow to wake up". States "was told by my sister's boyfriend that I had trouble breathing and almost during my neck surgery". No hx blood transfusion. Date of Last Stent Placement:: 06/03/2014 Type of Cardiac Device: Unknown Device Placement Date:: 05/28/2020 Past Psychological History: Depression Smoking Status: Never smoker - Past Family History Father Family Medical History: Cancer Additional Family Medical History / Comment(s): Stomach cancer. Sister(s) Family Medical History: Cancer Additional Family Medical History / Comment(s): Stomach cancer. Mother Family Medical History: No Reported History Additional Family Medical History / Comment(s): . General Exam - General Exam Comments Initial Comments: Vital signs stable, patient afebrile. Patient does not appear to be ill or toxic. Cranial nerves II through XII are intact. No focal neurologic deficits. Patient does appear to have a bit of slowed speech although not slurred. Limitations: no limitations General appearance: alert, in no apparent distress Head exam: Present: atraumatic, normocephalic, normal inspection Eye exam: Present: normal appearance, PERRL, EOMI. Absent: scleral icterus, conjunctival injection, periorbital swelling ENT exam: Present: normal exam, mucous membranes moist Neck exam: Present: normal inspection. Absent: tenderness, meningismus, lymphadenopathy Respiratory exam: Present: normal lung sounds bilaterally. Absent: respiratory distress, wheezes, rales, rhonchi, stridor Cardiovascular Exam: Present: regular rate, normal rhythm, normal heart sounds. Absent: systolic murmur, diastolic murmur, rubs, gallop, clicks GI/Abdominal exam: Present: soft, normal bowel sounds. Absent: distended, tenderness, guarding, rebound, rigid Extremities exam: Present: normal inspection, full ROM, normal capillary refill. Absent: tenderness, pedal edema, joint swelling, calf tenderness Back exam: Present: normal inspection Neurological exam: Present: alert, oriented X3, CN II-XII intact, other. Absent: motor sensory deficit Psychiatric exam: Present: normal affect, normal mood. Absent: anxious, flat affect Skin exam: Present: warm, dry, intact, normal color. Absent: rash Course Vital Signs 04/14/22 04/14/22 19:10 21:44 Temperature 97.9 F Pulse Rate 64 50 L Respiratory 18 18 Rate Blood Pressure 117/78 149/72 O2 Sat by Pulse 100 96 Oximetry - Reevaluation(s) Reevaluation #1: 04/14/22 22:01 Medical record is reviewed Symptoms are improved here in the emergency department Patient is informed of results and questions answered Patient in no distress Patient noted be bradycardic on the EKG. Patient asymptomatic here in the ER. Heart rate between 49 and 66. Patient had one reading of low blood pressure but all of the other values have been normal. Note that the patient is not on a beta sammy or other medication which would cause bradycardia. Plan for reevaluation Reevaluation #2: 04/15/22 00:54 Patient reevaluated and is alert and oriented 4. Cranial nerves II through XII intact. No neurologic deficits. Computed tomography scan of the brain independently reviewed and interpreted by me reveals no acute pathology. Patient does have low potassium at 3.2. Remainder of the workup is essentially normal. Patient neurological baseline. EKG Findings - EKG Comments: EKG Findings:: Independent interpretation of EKG at 2137 by me reveals sinus bradycardia with a rate of 49, left axis deviation, no ST or T-wave changes, normal intervals, compared to the previous study from December 2020 there is no significant change other than the heart rate. Medical Decision Making - Medical Decision Making Independent interpretation of the computed tomography scan by me reveals no evidence of acute pathology. Reviewed radiology interpretation. Differential diagnosis: most likely seizure as the patient has had history of these. patient noted to be bradycardic. it is asymptomatic here in the er. vital signs stable, patient in no distress. we'll have the patient continue her keppra. The level is pending. Is not appear to be consistent with infectious process. Does not appear to be consistent with CVA or TIA. Does not appear to be consistent with tonic-clonic seizure. the patient had an absence seizure. Patient has had these in the past. Patient's Keppra level is pending. since this is not a tonic-clonic seizure and has been a frequent recurrence for the patient. We'll have her follow-up with her neurologist. I'll make no medication changes at this time. The case was discussed in detail with ED attending physician. Presentation, findings, treatment plan discussed in detail. 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 Told to return immediately if any other problems arise. All questions answered. Treatment plan discussed. Patient in agreement Every effort has been made to ensure accuracy of this dictation. However, due to the limitations of electronic medical records and dictation devices, errors in charting still occur. All findings discussed with the patient. I did consider a loading dose of Keppra. However this is an absence seizure that the patient does not lose consciousness. We'll have her follow-up with her neurologist. Supervising physician Dr. Drake - Lab Data Result diagrams: 04/14/22 21:17 04/14/22 21:17 Lab Results 04/14/22 04/14/22 04/14/22 Range/Units 21:17 21:17 21:17 WBC 7.5 (3.8-10.6) k/uL RBC 4.30 (3.80-5.40) m/uL Hgb 13.3 (11.4-16.0) gm/dL Hct 38.9 (34.0-46.0) % MCV 90.4 (80.0-100.0) fL MCH 30.9 (25.0-35.0) pg MCHC 34.1 (31.0-37.0) g/dL RDW 12.8 (11.5-15.5) % Plt Count 257 (150-450) k/uL MPV 8.1 Neutrophils % 57 % Lymphocytes % 35 % Monocytes % 5 % Eosinophils % 1 % Basophils % 1 % Neutrophils # 4.2 (1.3-7.7) k/uL Lymphocytes # 2.6 (1.0-4.8) k/uL Monocytes # 0.4 (0-1.0) k/uL Eosinophils # 0.1 (0-0.7) k/uL Basophils # 0.1 (0-0.2) k/uL Sodium 143 (137-145) mmol/L Potassium 3.2 L (3.5-5.1) mmol/L Chloride 105 (98-107) mmol/L Carbon Dioxide 31 H (22-30) mmol/L Anion Gap 7 mmol/L BUN 17 (7-17) mg/dL Creatinine 0.66 (0.52-1.04) mg/dL Est GFR (CKD-EPI)AfAm >90 (>60 ml/min/1.73 sqM) Est GFR (CKD-EPI)NonAf >90 (>60 ml/min/1.73 sqM) Glucose 95 (74-99) mg/dL Calcium 9.3 (8.4-10.2) mg/dL Magnesium 2.0 (1.6-2.3) mg/dL Total Bilirubin 0.4 (0.2-1.3) mg/dL AST 25 (14-36) U/L ALT 16 (4-34) U/L Alkaline Phosphatase 86 (38-126) U/L Total Protein 7.0 (6.3-8.2) g/dL Albumin 4.3 (3.5-5.0) g/dL Urine Color Yellow Urine Appearance Clear (Clear) Urine pH 5.5 (5.0-8.0) Ur Specific [place] 1.032 (1.001-1.035) Urine Protein 1+ H (Negative) Urine Glucose (UA) Negative (Negative) Urine Ketones Negative (Negative) Urine Blood Negative (Negative) Urine Nitrite Negative (Negative) Urine Bilirubin Negative (Negative) Urine Urobilinogen 2.0 (<2.0) mg/dL Ur Leukocyte Esterase Moderate H (Negative) Urine RBC 2 (0-5) /hpf Urine WBC 6 H (0-5) /hpf Ur Squamous Epith Cells <1 (0-4) /hpf Hyaline Casts 3 H (0-2) /lpf Urine Mucus Few H (None) /hpf Urine Opiates Screen Detected H (NotDetected) Ur Oxycodone Screen Not Detected (NotDetected) Urine Methadone Screen Not Detected (NotDetected) Ur Propoxyphene Screen Not Detected (NotDetected) Ur Barbiturates Screen Not Detected (NotDetected) U Tricyclic Antidepress Not Detected (NotDetected) Ur Phencyclidine Scrn Not Detected (NotDetected) Ur Amphetamines Screen Not Detected (NotDetected) U Methamphetamines Scrn Not Detected (NotDetected) U Benzodiazepines Scrn Not Detected (NotDetected) Urine Cocaine Screen Not Detected (NotDetected) U Marijuana (THC) Screen Not Detected (NotDetected) Serum Alcohol <10 mg/dL - Radiology Data Radiology results: report reviewed, image reviewed Disposition Clinical Impression: Recurrent seizures, Staring episodes, Hypokalemia Disposition: HOME SELF-CARE Condition: Stable Instructions (If sedation given, give patient instructions): Seizure/Epilepsy Discharge Instructions & Follow-Up, Hypokalemia (ED) Additional Instructions: Follow-up with your neurologist as soon as possible. Follow-up with your regular physician as directed. Return to the ER immediately if any symptoms worsen, new symptoms arise, or any other problems develop. Prescriptions: Potassium Bicarb-Citric Acid [K-Lyte Eff] 25 meq PO BID #10 tab Is patient prescribed a controlled substance at d/c from ED?: No Referrals: Júnior Hancock MD [Primary Care Provider] - 1-2 days Time of Disposition: 00:57
--- NOTE | 2022-04-14 20:53 | CT ---
EXAMINATION TYPE: CT brain wo con CT DLP: 2286.4 mGycm, Automated exposure control for dose reduction was used. DATE OF EXAM: 04/14/2022 8:43 PM COMPARISON: Prior CT Brain from 01/29/2020. CLINICAL INDICATION:Female, 61 years old with history of seizure activity, seizure activity TECHNIQUE: Brain: Multiple axial CT images of the brain were obtained without IV contrast. Coronal and sagittal reformats reviewed. FINDINGS: Brain: Extra-axial spaces: No abnormal extra-axial fluid collections. Ventricular system: Within normal limits Cerebral parenchyma: No acute intraparenchymal hemorrhage or mass effect. The valenzuela-white junction is well differentiated. Mild cerebral atrophy. Cerebellum: Unremarkable. Mass effect: No evidence of midline shift. Intracranial vasculature: unremarkable Soft tissues: Normal. Calvarium/osseous structures: No depressed skull fracture. Paranasal sinuses and mastoid air cells: Mild scattered paranasal sinus disease. Visualized orbits: Orbital contents are intact. IMPRESSION: No acute intracranial process. No significant change from prior examination.
[2022-04-14 21:45] VITALS: BP 149/72; PULSE 50
[2022-04-14 22:13] LABS: Basophils # (A) 0.1 k/uL (0-0.2); Basophils % (A) 1 %; Eosinophils # (A) 0.1 k/uL (0-0.7); Eosinophils % (A) 1 %; HCT 38.9 % (34.0-46.0); HGB 13.3 gm/dL (11.4-16.0); Lymphocytes # (A) 2.6 k/uL (1.0-4.8); Lymphocytes % (A) 35 %; MCH 30.9 pg (25.0-35.0); MCHC 34.1 g/dL (31.0-37.0); MCV 90.4 fL (80.0-100.0); Mean Platelet Volume 8.1; Monocytes # (A) 0.4 k/uL (0-1.0); Monocytes % (A) 5 %; Neutrophils # (A) 4.2 k/uL (1.3-7.7); Neutrophils % (A) 57 %; Platelet Count 257 k/uL (150-450); RDW 12.8 % (11.5-15.5); WBC 7.5 k/uL (3.8-10.6)
[2022-04-14 22:39] LABS: Appearance,Urine Clear (Clear); Bilirubin,Urine Negative (Negative); Blood,Urine Negative (Negative); Color,Urine Yellow; Glucose,Urine (UA) Negative (Negative); Hyaline Casts,Urine 3 /lpf (0-2); Ketones,Urine Negative (Negative); Leukocyte Esterase,Urine Moderate (Negative); Mucus,Urine Few /hpf; Nitrite,Urine Negative (Negative); PH, Urine 5.5 (5.0-8.0); Protein,Urine 1+ (Negative); RBC,Urine 2 /hpf (0-5); Specific Gravity,Urine 1.032 (1.001-1.035); Squamous Epithelial Cell,Urine <1 /hpf (0-4); WBC,Urine 6 /hpf (0-5)
[2022-04-14 22:42] LABS: Amphetamine Screen,Urine Not Detected (NotDetected); Barbiturate Screen,Urine Not Detected (NotDetected); Benzodiazepines Screen,Urine Not Detected (NotDetected); Cocaine Screen,Urine Not Detected (NotDetected); Methadone Screen, Urine Not Detected (NotDetected); Opiate Screen,Urine Detected (NotDetected); Oxycodone Screen, Urine Not Detected (NotDetected); Phencyclidine Screen,Urine Not Detected (NotDetected); Tricyclic Antidepressant,Urine Not Detected (NotDetected); Urn Cannabinoid Scrn Not Detected (NotDetected)
[2022-04-14 22:46] LABS: ALT 16 U/L (4-34); AST 25 U/L (14-36); African American GFR (CKD) >90 (>60 ml/min/1.73 sqM); Albumin 4.3 g/dL (3.5-5.0); Alcohol <10 mg/dL; Alkaline Phosphatase 86 U/L (38-126); Anion Gap 7 mmol/L; Blood Urea Nitrogen 17 mg/dL (7-17); Calcium 9.3 mg/dL (8.4-10.2); Carbon Dioxide 31 mmol/L (22-30); Chloride 105 mmol/L (98-107); Glucose 95 mg/dL (74-99); Non-African American GFR(CKD) >90 (>60 ml/min/1.73 sqM); Potassium 3.2 mmol/L (3.5-5.1); Sodium 143 mmol/L (137-145); Total Bilirubin 0.4 mg/dL (0.2-1.3)
[2022-04-15] MEDS ORDERED: POTASSIUM CHLORIDE ER 20 MEQ TAB.ER PO STA (00:48)
[2022-04-15] MEDS ORDERED: POTASSIUM BICARBONATE/CIT AC 20 MEQ TABLET.EFF PO ONE (00:53)
== END 2022-04-15 01:28 | disposition home or self-care (01) ==
LOC: EC 19:06
DX: G40.909 Epilepsy, unspecified, not intractable, without status epilepticus (principal); R68.89 Other general symptoms and signs; E87.6 Hypokalemia; J45.909 Unspecified asthma, uncomplicated; I11.0 Hypertensive heart disease with heart failure; I50.9 Heart failure, unspecified; G47.30 Sleep apnea, unspecified; K21.9 Gastro-esophageal reflux disease without esophagitis; E07.9 Disorder of thyroid, unspecified; M19.90 Unspecified osteoarthritis, unspecified site; F32.A Depression, unspecified; Z79.891 Long term (current) use of opiate analgesic; Z79.890 Hormone replacement therapy; Z79.899 Other long term (current) drug therapy; Z91.048 Other nonmedicinal substance allergy status; Z91.030 Bee allergy status; Z88.8 Allergy status to other drugs, medicaments and biological substances; Z88.1 Allergy status to other antibiotic agents; Z88.6 Allergy status to analgesic agent; Z91.040 Latex allergy status; Z88.0 Allergy status to penicillin
CPT/HCPCS: 36415; 93005; 80053; 80177; 83735; 85025; 81001; 80306; 70450; 99284; 96360; 96361 ×3; G0480; 80320

== ENCOUNTER → 2022-04-14 | Outpatient (CLI) | payer MEDICARE, OTHER ==
[2022-04-14 13:04] VITALS: PULSE 66; TEMP 98.6
[2022-04-14 13:06] VITALS: BP 100/70
--- NOTE | 2022-04-14 14:14 | P.HPBAR ---
Bariatric H&P - History & Physicial H&P Date: 04/14/22 History & Physicial: Visit/CC: sleeve F/U Patient initial contact: Initial weight: 137.438 kg Initial weight in pounds: 303.00 Height: 5 ft 7 in Initial BMI: 47.4 Last weight: Current weight: 87.09 kg Current weight in pounds: 192.00 Current BMI: 30.0 [place] body weight (based on NIH guidelines): 61.235 kg Excess body weight loss: 66.0% The patient is a 61 year-old F who presents for Bariatric Assessment. Patient presents today for sleeve gastric fall. Patient has some minimal colitis of GERD. She denies any dysphagia. Past Medical History Past Medical History: Asthma, Chest Pain / Angina, Heart Failure, GERD/Reflux, Hyperlipidemia, Hypertension, Osteoarthritis (OA), Pneumonia, Seizure Disorder, Skin Disorder, Sleep Apnea/CPAP/BIPAP, Thyroid Disorder Additional Past Medical History / Comment(s): Pinched nerves in back and neck, uses cane. Last seizure 4 weeks ago. "Blood pressure and heart rate go up and down all the time." Developementally disabled. Restless leg syndrome, neck and back pain with pain down bilateral legs, leg weakness, occasional numbness and tingling to bilateral hands and feet. CPAP use. Abdominal pain, diarrhea right after eating. Hx falls, persistant itching-cause unknown. Sees pain specialist for chronic pain. Hx pneumonia dehydration and seizure Dec 2021. Swelling in legs. History of Any Multi-Drug Resistant Organisms: None Reported Past Surgical History: Adenoidectomy, Bariatric Surgery, Cholecystectomy, Heart Catheterization, Hernia Repair, Hysterectomy, Tonsillectomy Additional Past Surgical History / Comment(s): Cervical surgery/cage, sleeve gastrectomy 12-01-18, LOOP RECORDER 05/28/2020. Past Anesthesia/Blood Transfusion Reactions: Previous Problems w/ Anesthesia Additional Past Anesthesia/Blood Transfusion Reaction / Comm: "Slow to wake up". States "was told by my sister's boyfriend that I had trouble breathing and almost during my neck surgery". No hx blood transfusion. Date of Last Stent Placement:: 06/03/2014 Type of Cardiac Device: Unknown Device Placement Date:: 05/28/2020 Smoking Status: Never smoker - Past Family History Father Family Medical History: Cancer Additional Family Medical History / Comment(s): Stomach cancer. Sister(s) Family Medical History: Cancer Additional Family Medical History / Comment(s): Stomach cancer. Mother Family Medical History: No Reported History Additional Family Medical History / Comment(s): . Surgical - Exam Vital Signs Temp Pulse BP 98.6 F 66 89/63 04/14/22 12:59 04/14/22 12:59 04/14/22 12:59 - General well developed, well nourished, no distress - Eyes PERRL - ENT normal pinna, normal nares - Respiratory normal expansion - Cardiovascular Rhythm: regular - Abdomen Abdomen: soft, non tender Bariatric Assessment & Plan Plan: Status post sleeve gastric. Patient's GERD is minimal will be observed. Her weight is remain stable. She'll follow-up in 4 weeks. Bariatric Checklist Checklist: Plan: Checklist: EGD: 1. Hiatal hernia: 2. H. Pylori: HgbA1c: Vitamin D: Smoking: Never smoker Primary care physician referral: PCP Barbara Carter=, [employer]=[place] Psychiatry clearance: Cardiology clearance: Sleep study: Diet journal: VTE risk score: VTE risk level: Rehab needs at discharge:
== END ==
LOC: BARWHC3 12:41
PROVIDERS: ATTEND Surgery
DX: Z48.815 Encounter for surgical aftercare following surgery on the digestive system (principal); Z98.84 Bariatric surgery status; J45.909 Unspecified asthma, uncomplicated; K21.9 Gastro-esophageal reflux disease without esophagitis; E78.5 Hyperlipidemia, unspecified; I10 Essential (primary) hypertension; M19.90 Unspecified osteoarthritis, unspecified site; Z91.048 Other nonmedicinal substance allergy status; Z91.040 Latex allergy status; Z88.0 Allergy status to penicillin; Z88.8 Allergy status to other drugs, medicaments and biological substances; Z88.6 Allergy status to analgesic agent; Z91.030 Bee allergy status
CPT/HCPCS: 99211

== ENCOUNTER → 2022-07-14 | Outpatient (CLI) | payer MEDICARE, OTHER ==
[2022-07-14 13:12] VITALS: BP 102/67; PULSE 65; TEMP 97.6; BMI 29.9
--- NOTE | 2022-07-15 10:27 | P.HPBAR ---
Bariatric H&P - History & Physicial H&P Date: 07/14/22 History & Physicial: Visit/CC: F/U Patient initial contact: Initial weight: 137.438 kg Initial weight in pounds: 303.00 Height: 5 ft 7 in Initial BMI: 47.4 Last weight: Current weight: 86.636 kg Current weight in pounds: 191.00 Current BMI: 29.9 Paulina body weight (based on NIH guidelines): 61.235 kg Excess body weight loss: 66.6% The patient is a 61 year-old F who presents for Bariatric Assessment. Patient presents today for [place] fall. She's had minimal complaints of dysphagia and GERD. Her weight has been stable. Past Medical History Past Medical History: Asthma, Chest Pain / Angina, Heart Failure, GERD/Reflux, Hyperlipidemia, Hypertension, Osteoarthritis (OA), Pneumonia, Seizure Disorder, Skin Disorder, Sleep Apnea/CPAP/BIPAP, Thyroid Disorder Additional Past Medical History / Comment(s): Pinched nerves in back and neck, uses cane. Last seizure 4 weeks ago. "Blood pressure and heart rate go up and down all the time." Developementally disabled. Restless leg syndrome, neck and back pain with pain down bilateral legs, leg weakness, occasional numbness and tingling to bilateral hands and feet. CPAP use. Abdominal pain, diarrhea right after eating. Hx falls, persistant itching-cause unknown. Sees pain specialist for chronic pain. Hx pneumonia dehydration and seizure Dec 2021. Swelling in legs. History of Any Multi-Drug Resistant Organisms: None Reported Past Surgical History: Adenoidectomy, Bariatric Surgery, Cholecystectomy, Heart Catheterization, Hernia Repair, Hysterectomy, Tonsillectomy Additional Past Surgical History / Comment(s): Cervical surgery/cage, sleeve gastrectomy 12-01-18, LOOP RECORDER 05/28/2020. Past Anesthesia/Blood Transfusion Reactions: Previous Problems w/ Anesthesia Additional Past Anesthesia/Blood Transfusion Reaction / Comm: "Slow to wake up". States "was told by my sister's boyfriend that I had trouble breathing and almost during my neck surgery". No hx blood transfusion. Date of Last Stent Placement:: 06/03/2014 Type of Cardiac Device: Unknown Device Placement Date:: 05/28/2020 Past Psychological History: Depression Additional Psychological History / Comment(s): Pt states she currently resides with her sister. She is mildly developmentally delayed. 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 Past Drug Use History: None Reported - Past Family History Father Family Medical History: Cancer Additional Family Medical History / Comment(s): Stomach cancer. Sister(s) Family Medical History: Cancer Additional Family Medical History / Comment(s): Stomach cancer. Mother Family Medical History: No Reported History Additional Family Medical History / Comment(s): . Surgical - Exam Vital Signs Temp Pulse BP 97.6 F 65 102/67 07/14/22 13:06 07/14/22 13:06 07/14/22 13:06 - General well developed, well nourished, no distress - Eyes PERRL - ENT normal pinna - Neck no masses - Respiratory normal expansion - Cardiovascular Rhythm: regular - Abdomen Abdomen: soft, non tender Bariatric Assessment & Plan Plan: Patient has been relatively stable. She'll follow-up in week he weeks. Patient has had no significant dysphagia and GERD. She will be observed. Bariatric Checklist Checklist: Plan: Checklist: EGD: 1. Hiatal hernia: 2. H. Pylori: HgbA1c: Vitamin D: Smoking: Never smoker Primary care physician referral: PCP Barbara Carter=, Clinical Social Work Therapist=[place] Psych[facility] clearance: Cardiology clearance: Sleep study: Diet journal: VTE risk score: VTE risk level: Rehab needs at discharge:
== END ==
LOC: BARWHC3 12:50
PROVIDERS: ATTEND Surgery
DX: E66.01 Morbid (severe) obesity due to excess calories (principal); J45.909 Unspecified asthma, uncomplicated; R07.9 Chest pain, unspecified; K21.9 Gastro-esophageal reflux disease without esophagitis; E78.5 Hyperlipidemia, unspecified; I10 Essential (primary) hypertension; G47.33 Obstructive sleep apnea (adult) (pediatric); I50.9 Heart failure, unspecified; E07.9 Disorder of thyroid, unspecified; M19.90 Unspecified osteoarthritis, unspecified site; L98.9 Disorder of the skin and subcutaneous tissue, unspecified; J18.9 Pneumonia, unspecified organism; Z68.29 Body mass index [BMI] 29.0-29.9, adult; Z91.048 Other nonmedicinal substance allergy status; Z91.030 Bee allergy status; Z99.89 Dependence on other enabling machines and devices; Z88.8 Allergy status to other drugs, medicaments and biological substances; Z91.040 Latex allergy status; Z88.6 Allergy status to analgesic agent; Z88.0 Allergy status to penicillin
CPT/HCPCS: 99211

== ENCOUNTER → 2022-08-05 | Outpatient (CLI) | payer MEDICARE, OTHER ==
--- NOTE | 2022-08-05 14:40 | XR ---
EXAMINATION TYPE: XR hand complete RT DATE OF EXAM: 08/05/2022 COMPARISON: NONE HISTORY: Pain TECHNIQUE: Three views are submitted. FINDINGS: The osseous structures are intact. The joint spaces are preserved and there is no acute fracture or dislocation. Diffuse osteopenia. IMPRESSION: 1. No definite acute fracture or dislocation if symptoms persist, follow-up study in 7 to 10 days wo uld be suggested
--- NOTE | 2022-08-05 14:48 | XR ---
EXAMINATION TYPE: XR wrist complete RT DATE OF EXAM: 08/05/2022 COMPARISON: NONE HISTORY: Pain TECHNIQUE: Four views submitted. FINDINGS: The osseous structures are intact. The joint spaces are preserved and there is no acute fracture or dislocation. IMPRESSION: 1. No definite acute fracture or dislocation if symptoms persist, follow-up study in 7 to 10 days wo uld be suggested
== END | disposition home or self-care (01) ==
LOC: RADXRMAIN 13:59
PROVIDERS: ATTEND Family Medicine
DX: S62.91XA Unspecified fracture of right hand, initial encounter for closed fracture (principal)

== ENCOUNTER 2022-08-06 10:47 | Emergency (ER) | payer MEDICARE ==
[2022-08-06 11:47] VITALS: TEMP 98
[2022-08-06 13:12] LABS: Basophils % (A) 0 %; Eosinophils # (A) 0.1 k/uL (0-0.7); Eosinophils % (A) 1 %; HCT 35.9 % (34.0-46.0); Lymphocytes # (A) 1.9 k/uL (1.0-4.8); Lymphocytes % (A) 37 %; MCH 30.8 pg (25.0-35.0); MCHC 33.4 g/dL (31.0-37.0); MCV 92.2 fL (80.0-100.0); Mean Platelet Volume 7.6; Monocytes # (A) 0.3 k/uL (0-1.0); Monocytes % (A) 5 %; Neutrophils # (A) 2.8 k/uL (1.3-7.7); Neutrophils % (A) 54 %; Platelet Count 218 k/uL (150-450); RBC 3.89 m/uL (3.80-5.40); RDW 12.5 % (11.5-15.5); WBC 5.1 k/uL (3.8-10.6)
[2022-08-06 13:32] LABS: ALT 17 U/L (4-34); AST 21 U/L (14-36); African American GFR (CKD) >90 (>60 ml/min/1.73 sqM); Alkaline Phosphatase 68 U/L (38-126); Anion Gap 7 mmol/L; Blood Urea Nitrogen 16 mg/dL (7-17); Calcium 9.1 mg/dL (8.4-10.2); Carbon Dioxide 31 mmol/L (22-30); Chloride 102 mmol/L (98-107); Glucose 89 mg/dL (74-99); Magnesium 2.2 mg/dL (1.6-2.3); Non-African American GFR(CKD) >90 (>60 ml/min/1.73 sqM); Potassium 3.7 mmol/L (3.5-5.1); Sodium 140 mmol/L (137-145); Total Bilirubin 0.4 mg/dL (0.2-1.3); Total Protein 6.7 g/dL (6.3-8.2)
[2022-08-06 13:35] LABS: Partial Thromboplastin Time 26.4 sec (22.0-30.0); Prothrombin Time 10.8 sec (9.0-12.0)
--- NOTE | 2022-08-06 13:49 | XR ---
EXAMINATION TYPE: XR chest 2V DATE OF EXAM: 08/06/2022 COMPARISON: 03/13/2022 TECHNIQUE: PA and lateral views submitted. HISTORY: Shortness of breath FINDINGS: The lungs are clear and there is no pneumothorax, pleural effusion, or focal pneumonia. Heart size normal and no overt failure. Osseous structures intact with curvature of the spine. There is postsurg ical change overlying the cervical spine. There is a multiple subcutaneous implanted devices. No over t failure.. IMPRESSION: 1. No acute process.
[2022-08-06 14:35] VITALS: BP 115/76; PULSE 54; RESP 18
--- NOTE | 2022-08-06 15:07 | ED ---
General Adult HPI - General Chief complaint: Extremity Problem,Nontraumatic Stated complaint: bilat leg edema Time Seen by Provider: 08/06/22 13:56 Source: patient, RN notes reviewed Mode of arrival: wheelchair Limitations: no limitations - History of Present Illness Initial comments: This is a 61-year-old female presents emergency Department stating that she was told that her legs look a little more swollen so she came to the emergency department to get evaluated. Patient denies shortness of breath to me it says on the triage notes that she short of breath but I asked her on 3 different occasions and she denies shortness of breath. Patient denies chest pain or palpitations. Patient states she doesn't really notice much difference in her legs but someone told her they look bigger. Patient denies any calf pain. Patient denies any fever chills or cough. Patient denies abdominal pain patient denies nausea vomiting diarrhea. - Related Data Home Medications Medication Instructions Recorded Confirmed Aspirin EC [Ecotrin Low Dose] 81 mg PO DAILY 02/22/19 07/14/22 Pantoprazole [Protonix] 40 mg PO HS 11/10/19 07/14/22 Gabapentin [Neurontin] 300 mg PO TID 07/09/20 07/14/22 Albuterol Inhaler [Ventolin Hfa 2 puff INHALATION QID 09/14/20 07/14/22 Inhaler] Montelukast [Singulair] 10 mg PO HS 09/14/20 07/14/22 levETIRAcetam [Keppra] 750 mg PO BID 09/14/20 07/14/22 Meclizine [Antivert] 25 mg PO TID PRN 01/23/21 07/14/22 Potassium Chloride ER [K-Dur 20] 20 meq PO DAILY 04/12/21 07/14/22 Ferrous Sulfate [Iron] 325 mg PO DAILY 02/18/22 07/14/22 Levothyroxine Sodium 100 mcg PO QAM 02/18/22 07/14/22 ALPRAZolam [Xanax] 0.25 mg PO BID PRN 05/19/22 07/14/22 Cyanocobalamin (Vitamin B-12) 1,000 mcg PO DAILY 05/19/22 07/14/22 [Vitamin B-12] Ergocalciferol [Vitamin D2 (1250 50,000 unit PO DAILY 05/19/22 07/14/22 Mcg = 08623 Iu)] Loratadine [Claritin] 10 mg PO DAILY 05/19/22 07/14/22 Losartan [Cozaar] 25 mg PO DAILY 05/19/22 07/14/22 Lovastatin [Mevacor] 40 mg PO HS 05/19/22 07/14/22 hydroCHLOROthiazide 25 mg PO DAILY 07/14/22 07/14/22 Allergies Allergy/AdvReac Type Severity Reaction Status Date / Time adhesive Allergy Rash/Hives Verified 08/06/22 11:47 bee venom protein (honey bee) Allergy Anaphylaxis Verified 08/06/22 11:47 buspirone [From BuSpar] Allergy Itching Verified 08/06/22 11:47 divalproex sodium Allergy Swelling Verified 08/06/22 11:47 [From Depakote] ibuprofen [From Motrin] Allergy Rash/Hives Verified 08/06/22 11:47 latex Allergy Rash/Hives Verified 08/06/22 11:47 Penicillins Allergy Rash/Hives Verified 08/06/22 11:47 topiramate [From Topamax] Allergy Swelling Verified 08/06/22 11:47 Review of Systems ROS Statement: Those systems with pertinent positive or pertinent negative responses have been documented in the HPI. ROS Other: All systems not noted in ROS Statement are negative. Past Medical History Past Medical History: Asthma, Chest Pain / Angina, Heart Failure, GERD/Reflux, Hyperlipidemia, Hypertension, Osteoarthritis (OA), Pneumonia, Seizure Disorder, Skin Disorder, Sleep Apnea/CPAP/BIPAP, Thyroid Disorder Additional Past Medical History / Comment(s): Pinched nerves in back and neck, uses cane. Last seizure 4 weeks ago. "Blood pressure and heart rate go up and down all the time." Developementally disabled. Restless leg syndrome, neck and back pain with pain down bilateral legs, leg weakness, occasional numbness and tingling to bilateral hands and feet. CPAP use. Abdominal pain, diarrhea right after eating. Hx falls, persistant itching-cause unknown. Sees pain specialist for chronic pain. Hx pneumonia dehydration and seizure Dec 2021. Swelling in legs. History of Any Multi-Drug Resistant Organisms: None Reported Past Surgical History: Adenoidectomy, Bariatric Surgery, Cholecystectomy, Heart Catheterization, Hernia Repair, Hysterectomy, Tonsillectomy Additional Past Surgical History / Comment(s): Cervical surgery/cage, sleeve gastrectomy 12-01-18, LOOP RECORDER 05/28/2020. Past Anesthesia/Blood Transfusion Reactions: Previous Problems w/ Anesthesia Additional Past Anesthesia/Blood Transfusion Reaction / Comment(s): "Slow to wake up". States "was told by my sister's boyfriend that I had trouble breathing and almost during my neck surgery". No hx blood transfusion. Date of Last Stent Placement:: 06/03/2014 Type of Cardiac Device: Unknown Device Placement Date:: 05/28/2020 Past Psychological History: Depression Smoking Status: Never smoker Past Alcohol Use History: None Reported Past Drug Use History: None Reported - Past Family History Father Family Medical History: Cancer Additional Family Medical History / Comment(s): Stomach cancer. Sister(s) Family Medical History: Cancer Additional Family Medical History / Comment(s): Stomach cancer. Mother Family Medical History: No Reported History Additional Family Medical History / Comment(s): . General Exam - General Exam Comments Initial Comments: GENERAL: Patient is well-developed and well-nourished. Patient is nontoxic and well- hydrated and is in no acute distress. ENT: Neck is soft and supple. No significant lymphadenopathy is noted. Oropharynx is clear. Moist mucous membranes. Neck has full range of motion without eliciting any pain. EYES: The sclera were anicteric and conjunctiva were pink and moist. Extraocular movements were intact and pupils were equal round and reactive to light. Eyelids were unremarkable. PULMONARY: Unlabored respirations. Good breath sounds bilaterally. No audible rales rhonchi or wheezing was noted. CARDIOVASCULAR: There is a regular rate and rhythm without any murmurs gallops or rubs. ABDOMEN: Soft and nontender with normal bowel sounds. SKIN: Skin is clear with no lesions or rashes and otherwise unremarkable. NEUROLOGIC: Patient is alert and oriented x3. Cranial nerves II through XII are grossly intact. Motor and sensory are also intact. Normal speech, volume and content. Symmetrical smile. MUSCULOSKELETAL: Normal extremities with adequate strength and full range of motion. Patient has scant edema bilaterally LYMPHATICS: No significant lymphadenopathy is noted PSYCHIATRIC: Normal psychiatric evaluation. Limitations: no limitations Course Vital Signs 08/06/22 08/06/22 11:40 14:35 Temperature 98.0 F Pulse Rate 59 L 54 L Respiratory 20 18 Rate Blood Pressure 112/77 115/76 O2 Sat by Pulse 100 100 Oximetry Medical Decision Making - Medical Decision Making EKG was interpreted by myself shows a sinus bradycardia 51 bpm MI interval 172 QRS is 90 QT intervals 432 QTC is 408. Patient's EKG shows no ST segment elevation or depression. Was pt. sent in by a medical professional or institution (, [facility], AUTOMOBILE RELOCATION ENGINEER, urgent care, hospital, or correction...) When possible be specific @ -No Did you speak to anyone other than the patient for history (EMS, parent, family, police, friend...)? What history was obtained from this source @ -No Did you review nursing and triage notes (agree or disagree)? Why? @ -I reviewed and agree with nursing and triage notes Were old charts reviewed (outside hosp., previous admission, EMS record, old EKG, old radiological studies, urgent care reports/EKG's, correction records)? Report findings @ -I reviewed prior charts as well as part of her labs Differential Diagnosis (chest pain, altered mental status, abdominal pain women, abdominal pain men, vaginal bleeding, weakness, fever, dyspnea, syncope, headache, dizziness, GI bleed, back pain, seizure, CVA, palpatations, mental health, musculoskeletal)? @ -Edema, cellulitis, DVT, this is not all inclusive list EKG interpreted by me (3pts min.). @ -As above X-rays interpreted by me (1pt min.). @ -Chest x-ray was interpreted by myself. Chest x-ray showed no acute abnormality CT interpreted by me (1pt min.). @ -None done U/S interpreted by me (1pt. min.). @ -None done What testing was considered but not performed or refused? (CT, X-rays, U/S, labs)? Why? @ -None What meds were considered but not given or refused? Why? @ -None Did you discuss the management of the patient with other professionals (professionals i.e. [employer]ER Dhillon, AUTOMOBILE RELOCATION ENGINEER, lab, RT, psych nurse, social media assistant, ambulatory technologist, teacher, commercial credit officer, behavioral health case manager)? Give summary @ -No Was smoking cessation discussed for >3mins.? @ -No Was critical care preformed (if so, how long)? @ -No Were there social determinants of health that impacted care today? How? (Homelessness, low income, unemployed, alcoholism, drug addiction, transportation, low edu. Level, literacy, decrease access to med. care, usp, rehab)? @ -No Was there de-escalation of care discussed even if they declined (Discuss DNR or withdrawal of care, Hospice)? DNR status @ -No What co-morbidities impacted this encounter? (DM, HTN, Smoking, COPD, CAD, Cancer, CVA, ARF, Chemo, Hep., AIDS, mental health diagnosis, sleep apnea, morbid obesity)? @ -None Was patient admitted / discharged? Hospital course, mention meds given and route, prescriptions, significant lab abnormalities, going to OR and other pertinent info. @ -Patient's lab work came back normal x-ray was normal. Patient was in no respiratory distress. Patient's oxygenation was on a percent. Patient will be discharged home to follow-up with primary medical care doctor. Undiagnosed new problem with uncertain prognosis? @ -No Drug Therapy requiring intensive monitoring for toxicity (Heparin, Nitro, Insulin, Cardizem)? @ -No Were any procedures done? @ -No Diagnosis/symptom? @ -Peripheral edema Acute, or Chronic, or Acute on Chronic? @ -Chronic Uncomplicated (without systemic symptoms) or Complicated (systemic symptoms)? @ -Complicated Side effects of treatment? @ -No Exacerbation, Progression, or Severe Exacerbation? @ -No Poses a threat to life or bodily function? How? (Chest pain, [place], GA, pneumonia, PE, COPD, DKA, ARF, appy, cholecystitis, CVA, Diverticulitis, Homicidal, Suicidal, threat to staff... and all critical care pts) @ -No - Lab Data Result diagrams: 08/06/22 13:02 08/06/22 13:02 Lab Results 08/06/22 08/06/22 08/06/22 Range/Units 13:02 13:02 13:02 WBC 5.1 (3.8-10.6) k/uL RBC 3.89 (3.80-5.40) m/uL Hgb 12.0 (11.4-16.0) gm/dL Hct 35.9 (34.0-46.0) % MCV 92.2 (80.0-100.0) fL MCH 30.8 (25.0-35.0) pg MCHC 33.4 (31.0-37.0) g/dL RDW 12.5 (11.5-15.5) % Plt Count 218 (150-450) k/uL MPV 7.6 Neutrophils % 54 % Lymphocytes % 37 % Monocytes % 5 % Eosinophils % 1 % Basophils % 0 % Neutrophils # 2.8 (1.3-7.7) k/uL Lymphocytes # 1.9 (1.0-4.8) k/uL Monocytes # 0.3 (0-1.0) k/uL Eosinophils # 0.1 (0-0.7) k/uL Basophils # 0.0 (0-0.2) k/uL PT 10.8 (9.0-12.0) sec INR 1.0 (<1.2) APTT 26.4 (22.0-30.0) sec Sodium 140 (137-145) mmol/L Potassium 3.7 (3.5-5.1) mmol/L Chloride 102 (98-107) mmol/L Carbon Dioxide 31 H (22-30) mmol/L Anion Gap 7 mmol/L BUN 16 (7-17) mg/dL Creatinine 0.61 (0.52-1.04) mg/dL Est GFR (CKD-EPI)AfAm >90 (>60 ml/min/1.73 sqM) Est GFR (CKD-EPI)NonAf >90 (>60 ml/min/1.73 sqM) Glucose 89 (74-99) mg/dL Calcium 9.1 (8.4-10.2) mg/dL Magnesium 2.2 (1.6-2.3) mg/dL Total Bilirubin 0.4 (0.2-1.3) mg/dL AST 21 (14-36) U/L ALT 17 (4-34) U/L Alkaline Phosphatase 68 (38-126) U/L Troponin I (0.000-0.034) ng/mL NT-Pro-B Natriuret Pep pg/mL Total Protein 6.7 (6.3-8.2) g/dL Albumin 4.0 (3.5-5.0) g/dL 08/06/22 08/06/22 Range/Units 13:02 13:02 WBC (3.8-10.6) k/uL RBC (3.80-5.40) m/uL Hgb (11.4-16.0) gm/dL Hct (34.0-46.0) % MCV (80.0-100.0) fL MCH (25.0-35.0) pg MCHC (31.0-37.0) g/dL RDW (11.5-15.5) % Plt Count (150-450) k/uL MPV Neutrophils % % Lymphocytes % % Monocytes % % Eosinophils % % Basophils % % Neutrophils # (1.3-7.7) k/uL Lymphocytes # (1.0-4.8) k/uL Monocytes # (0-1.0) k/uL Eosinophils # (0-0.7) k/uL Basophils # (0-0.2) k/uL PT (9.0-12.0) sec INR (<1.2) APTT (22.0-30.0) sec Sodium (137-145) mmol/L Potassium (3.5-5.1) mmol/L Chloride (98-107) mmol/L Carbon Dioxide (22-30) mmol/L Anion Gap mmol/L BUN (7-17) mg/dL Creatinine (0.52-1.04) mg/dL Est GFR (CKD-EPI)AfAm (>60 ml/min/1.73 sqM) Est GFR (CKD-EPI)NonAf (>60 ml/min/1.73 sqM) Glucose (74-99) mg/dL Calcium (8.4-10.2) mg/dL Magnesium (1.6-2.3) mg/dL Total Bilirubin (0.2-1.3) mg/dL AST (14-36) U/L ALT (4-34) U/L Alkaline Phosphatase (38-126) U/L Troponin I <0.012 (0.000-0.034) ng/mL NT-Pro-B Natriuret Pep 21 pg/mL Total Protein (6.3-8.2) g/dL Albumin (3.5-5.0) g/dL Disposition Clinical Impression: Peripheral edema Disposition: HOME SELF-CARE Instructions (If sedation given, give patient instructions): Leg Edema (ED) Is patient prescribed a controlled substance at d/c from ED?: No Referrals: Júnior Hancock MD [Primary Care Provider] - 1-2 days Time of Disposition: 15:17
== END 2022-08-06 15:42 | disposition home or self-care (01) ==
LOC: EC 10:47
DX: R60.9 Edema, unspecified (principal); I11.0 Hypertensive heart disease with heart failure; I50.9 Heart failure, unspecified; J45.909 Unspecified asthma, uncomplicated; K21.9 Gastro-esophageal reflux disease without esophagitis; M19.90 Unspecified osteoarthritis, unspecified site; G47.30 Sleep apnea, unspecified; E78.5 Hyperlipidemia, unspecified; F32.A Depression, unspecified; Z79.82 Long term (current) use of aspirin; Z88.0 Allergy status to penicillin; Z88.6 Allergy status to analgesic agent; Z91.030 Bee allergy status; Z91.040 Latex allergy status; Z88.8 Allergy status to other drugs, medicaments and biological substances
CPT/HCPCS: 36415; 71046; 80053; 83735; 83880; 84484; 85025; 85610; 85730; 93005; 99283

== ENCOUNTER → 2022-09-08 | Outpatient (CLI) | payer MEDICARE, OTHER ==
[2022-09-08 13:00] VITALS: BP 119/83; PULSE 55; TEMP 98.7; BMI 30.7
--- NOTE | 2022-09-30 11:40 | P.HPBAR ---
Bariatric H&P - History & Physicial H&P Date: 09/08/22 History & Physicial: Visit/CC: bariatric F/U Patient initial contact: Initial weight: 137.438 kg Initial weight in pounds: 303.00 Height: 5 ft 7 in Initial BMI: 47.4 Last weight: Current weight: 88.904 kg Current weight in pounds: 196.00 Current BMI: 30.7 [place] body weight (based on NIH guidelines): 61.235 kg Excess body weight loss: 63.6% The patient is a 61 year-old F who presents for Bariatric Assessment. Patient presents today for bariatric follow-up. She has complaints of some minimal GERD. Patient also hypertensive. She is gained 5 pounds since her last visit. Past Medical History Past Medical History: Asthma, Chest Pain / Angina, Heart Failure, GERD/Reflux, Hyperlipidemia, Hypertension, Osteoarthritis (OA), Pneumonia, Seizure Disorder, Skin Disorder, Sleep Apnea/CPAP/BIPAP, Thyroid Disorder Additional Past Medical History / Comment(s): Pinched nerves in back and neck, uses cane. Last seizure 4 weeks ago. "Blood pressure and heart rate go up and down all the time." Developementally disabled. Restless leg syndrome, neck and back pain with pain down bilateral legs, leg weakness, occasional numbness and tingling to bilateral hands and feet. CPAP use. Abdominal pain, diarrhea right after eating. Hx falls, persistant itching-cause unknown. Sees pain specialist for chronic pain. Hx pneumonia dehydration and seizure Dec 2021. Swelling in legs. History of Any Multi-Drug Resistant Organisms: None Reported Past Surgical History: Adenoidectomy, Bariatric Surgery, Cholecystectomy, Heart Catheterization, Hernia Repair, Hysterectomy, Tonsillectomy Additional Past Surgical History / Comment(s): Cervical surgery/cage, sleeve gastrectomy 12-01-18, LOOP RECORDER 05/28/2020. Past Anesthesia/Blood Transfusion Reactions: Previous Problems w/ Anesthesia Additional Past Anesthesia/Blood Transfusion Reaction / Comm: "Slow to wake up". States "was told by my sister's boyfriend that I had trouble breathing and almost during my neck surgery". No hx blood transfusion. Date of Last Stent Placement:: 06/03/2014 Type of Cardiac Device: Unknown Device Placement Date:: 05/28/2020 Past Psychological History: Depression Additional Psychological History / Comment(s): Pt states she currently resides with her sister. She is mildly developmentally delayed. 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 Past Drug Use History: None Reported - Past Family History Father Family Medical History: Cancer Additional Family Medical History / Comment(s): Stomach cancer. Sister(s) Family Medical History: Cancer Additional Family Medical History / Comment(s): Stomach cancer. Mother Family Medical History: No Reported History Additional Family Medical History / Comment(s): . Surgical - Exam Vital Signs Temp Pulse BP 98.7 F 55 L 119/83 09/08/22 12:56 09/08/22 12:56 09/08/22 12:56 - General well developed, well nourished, no distress - Eyes PERRL - ENT normal pinna - Neck no masses - Respiratory normal expansion - Cardiovascular Rhythm: regular - Abdomen Abdomen: soft, non tender Bariatric Assessment & Plan Plan: Resolving morbid obesity. Patient BMI is 31. GERD is minimal user. Patient's blood pressure was rechecked in the office and she did become normotensive. She will follow-up in 4 weeks. Bariatric Checklist Checklist: Plan: Checklist: EGD: 1. Hiatal hernia: 2. H. Pylori: HgbA1c: Vitamin D: Smoking: Never smoker Primary care physician referral: PCP Barbara Carter=, [facility] Psychiatry clearance: Cardiology clearance: Sleep study: Diet journal: VTE risk score: VTE risk level: Rehab needs at discharge:
== END ==
LOC: BARWHC3 12:34
PROVIDERS: ATTEND Surgery
DX: E66.01 Morbid (severe) obesity due to excess calories (principal); J45.909 Unspecified asthma, uncomplicated; I50.9 Heart failure, unspecified; K21.9 Gastro-esophageal reflux disease without esophagitis; E78.5 Hyperlipidemia, unspecified; I10 Essential (primary) hypertension; M19.90 Unspecified osteoarthritis, unspecified site; G40.909 Epilepsy, unspecified, not intractable, without status epilepticus; Z99.89 Dependence on other enabling machines and devices; Z68.31 Body mass index [BMI] 31.0-31.9, adult; Z91.048 Other nonmedicinal substance allergy status; Z91.030 Bee allergy status; Z88.6 Allergy status to analgesic agent; Z91.040 Latex allergy status; Z88.0 Allergy status to penicillin; Z88.2 Allergy status to sulfonamides; Z88.8 Allergy status to other drugs, medicaments and biological substances
CPT/HCPCS: 99211

== ENCOUNTER 2022-12-19 11:47 | Observation (INO) | payer MEDICARE, OTHER ==
--- NOTE | 2022-12-19 12:20 | ED ---
General Adult HPI - General Source: patient, RN notes reviewed Mode of arrival: wheelchair Limitations: no limitations <Celia Negro - Last Filed: 12/19/22 12:15> <Sharlene Kennedy - Last Filed: 12/20/22 00:08> - General Chief complaint: Weakness Stated complaint: SENT BY PCP- FALLS,CARDIO,SEIZURE Time Seen by Provider: 12/19/22 15:15 - History of Present Illness Initial comments: This is a 62 year old female who presents to the emergency department for rehab placement. Patient states that her PCP sent her here for rehab placement due to leg weakness leading to frequent falls. Also reports a seizure history and believes that she may be having more seizures than normal. Currently lives in a house alone. She has been unable to go upstairs due to feeling weak. (Celia Negro) 62-year-old female with past medical history of asthma, heart failure, hypertension who presents to the emergency department under direction of her primary care. She called the office to inform them that she was having multiple falls and was having difficulty ambulating with her cane. Patient is unsure if she is having seizures which causes her to fall. States that her landlord has had to check in on her more frequently as he is concerned about her ability to live alone. She called office who directed her to come to the emergency department as they feel that she may need rehab placement. Patient is a very poor historian and cannot provide much detail. No family at bedside to assist the patient. (Sharlene Kennedy) - Related Data Home Medications Medication Instructions Recorded Confirmed Aspirin EC [Ecotrin Low Dose] 81 mg PO DAILY 02/22/19 12/19/22 Pantoprazole [Protonix] 40 mg PO DAILY 11/10/19 12/19/22 Albuterol Inhaler [Ventolin Hfa 2 puff INHALATION RT-Q4H PRN 09/14/20 12/19/22 Inhaler] Montelukast [Singulair] 10 mg PO HS 09/14/20 12/19/22 levETIRAcetam [Keppra] 1,500 mg PO BID 09/14/20 12/19/22 Meclizine [Antivert] 25 mg PO DAILY PRN 01/23/21 12/19/22 Ferrous Sulfate [Iron] 325 mg PO DAILY 02/18/22 12/19/22 Levothyroxine Sodium 100 mcg PO DAILY 02/18/22 12/19/22 ALPRAZolam [Xanax] 0.25 mg PO Q12H PRN 05/19/22 12/19/22 Cyanocobalamin (Vitamin B-12) 1,000 mcg PO DAILY 05/19/22 12/19/22 [Vitamin B-12] Ergocalciferol [Vitamin D2 (1250 1,250 mcg PO BUCKLEY 05/19/22 12/19/22 Mcg = 31744 Iu)] Loratadine [Claritin] 10 mg PO DAILY 05/19/22 12/19/22 Losartan [Cozaar] 25 mg PO DAILY 05/19/22 12/19/22 Lovastatin [Mevacor] 40 mg PO HS 05/19/22 12/19/22 hydroCHLOROthiazide 25 mg PO DAILY 07/14/22 12/19/22 Alendronate Sodium [Fosamax] 70 mg PO BUCKLEY 08/06/22 12/19/22 Fluticasone Propionate 220 Mcg 2 puff INHALATION RT-BID 08/06/22 12/19/22 [Flovent 220 Mcg Inhaler] Furosemide [Lasix] 40 mg PO DAILY 08/06/22 12/19/22 HYDROcodone/APAP 10-325MG [[place] 1 tab PO QID PRN 08/06/22 12/19/22 10-325] Perampanel [Fycompa] 10 mg PO HS 08/06/22 12/19/22 Potassium Chloride 20 meq PO DAILY 08/06/22 12/19/22 Budesonide [Pulmicort] 1 mg INHALATION RT-BID 12/19/22 12/19/22 Allergies Allergy/AdvReac Type Severity Reaction Status Date / Time adhesive Allergy Rash/Hives Verified 12/19/22 17:56 bee venom protein (honey bee) Allergy Anaphylaxis Verified 12/19/22 17:56 buspirone [From BuSpar] Allergy Itching Verified 12/19/22 17:56 divalproex sodium Allergy Swelling Verified 12/19/22 17:56 [From Depakote] ibuprofen [From Motrin] Allergy Rash/Hives Verified 12/19/22 17:56 latex Allergy Rash/Hives Verified 08/25/23 17:56 Penicillins Allergy Rash/Hives Verified 12/19/22 17:56 topiramate [From Topamax] Allergy Swelling Verified 12/19/22 17:56 Review of Systems ROS Other: All systems not noted in ROS Statement are negative. <Celia Negro - Last Filed: 12/19/22 12:15> ROS Other: All systems not noted in ROS Statement are negative. <Sharlene Kennedy - Last Filed: 12/20/22 00:08> ROS Statement: Those systems with pertinent positive or pertinent negative responses have been documented in the HPI. Past Medical History Past Medical History: Asthma, Chest Pain / Angina, Heart Failure, GERD/Reflux, Hyperlipidemia, Hypertension, Osteoarthritis (OA), Pneumonia, Seizure Disorder, Skin Disorder, Sleep Apnea/CPAP/BIPAP, Thyroid Disorder Additional Past Medical History / Comment(s): Pinched nerves in back and neck, uses cane. Last seizure 4 weeks ago. "Blood pressure and heart rate go up and down all the time." Developementally disabled. Restless leg syndrome, neck and back pain with pain down bilateral legs, leg weakness, occasional numbness and tingling to bilateral hands and feet. CPAP use. Abdominal pain, diarrhea right after eating. Hx falls, persistant itching-cause unknown. Sees pain specialist for chronic pain. Hx pneumonia dehydration and seizure Dec 2021. Swelling in legs. History of Any Multi-Drug Resistant Organisms: None Reported Past Surgical History: Adenoidectomy, Bariatric Surgery, Cholecystectomy, Heart Catheterization, Hernia Repair, Hysterectomy, Tonsillectomy Additional Past Surgical History / Comment(s): Cervical surgery/cage, sleeve gastrectomy 12-01-18, LOOP RECORDER 05/28/2020. Past Anesthesia/Blood Transfusion Reactions: Previous Problems w/ Anesthesia Additional Past Anesthesia/Blood Transfusion Reaction / Comment(s): "Slow to wake up". States "was told by my sister's boyfriend that I had trouble breathing and almost during my neck surgery". No hx blood transfusion. Date of Last Stent Placement:: 06/03/2014 Type of Cardiac Device: Unknown Device Placement Date:: 05/28/2020 Past Psychological History: Depression Additional Psychological History / Comment(s): Pt states she currently resides with her sister. She is mildly developmentally delayed. 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 Past Drug Use History: None Reported - Past Family History Father Family Medical History: Cancer Additional Family Medical History / Comment(s): Stomach cancer. Sister(s) Family Medical History: Cancer Additional Family Medical History / Comment(s): Stomach cancer. Mother Family Medical History: No Reported History Additional Family Medical History / Comment(s): . <Celia Negro - Last Filed: 12/19/22 12:15> General Exam <Celia Negro - Last Filed: 12/19/22 12:15> Limitations: altered mental status (poor historian) General appearance: alert, in no apparent distress Head exam: Present: atraumatic, normocephalic, normal inspection Eye exam: Present: normal appearance, PERRL, EOMI. Absent: scleral icterus, conjunctival injection, periorbital swelling ENT exam: Present: normal exam, mucous membranes moist Neck exam: Present: normal inspection. Absent: tenderness, meningismus, lymphadenopathy Respiratory exam: Present: normal lung sounds bilaterally. Absent: respiratory distress, wheezes, rales, rhonchi, stridor Cardiovascular Exam: Present: regular rate, normal rhythm, normal heart sounds. Absent: systolic murmur, diastolic murmur, rubs, gallop, clicks GI/Abdominal exam: Present: soft, normal bowel sounds. Absent: distended, tenderness, guarding, rebound, rigid Extremities exam: Present: normal inspection, full ROM, normal capillary refill. Absent: tenderness, pedal edema, joint swelling, calf tenderness Back exam: Present: normal inspection Neurological exam: Present: alert, oriented X3, CN II-XII intact Psychiatric exam: Present: flat affect Skin exam: Present: warm, dry, intact, normal color. Absent: rash <Sharlene Kennedy - Last Filed: 12/20/22 00:08> - General Exam Comments Initial Comments: Visual Physical Exam Vital signs reviewed General: Well-appearing, nontoxic, no acute distress. Head: Normocephalic, atraumatic Eyes: PERRLA, EOMI ENT: Airway patent Chest: Nonlabored breathing Skin: No visual rash, normal skin tone Neuro: Alert and oriented 3 Musculoskeletal: No gross abnormalities I performed the QuickNote portion of this chart. Signed Celia Negro PA-C. (Celia Negro) Course Vital Signs 12/19/22 12/19/22 12/19/22 12:15 15:54 15:57 Temperature 98.7 F Pulse Rate 72 61 Pulse Rate [ 70 Project Lead ] Respiratory 20 18 Rate Blood Pressure 117/82 140/83 O2 Sat by Pulse 97 100 Oximetry 12/19/22 12/19/22 18:00 19:57 Temperature 97.8 F Pulse Rate 64 65 Pulse Rate [ Project Lead ] Respiratory 18 16 Rate Blood Pressure 132/84 116/69 O2 Sat by Pulse 96 96 Oximetry Medical Decision Making - Lab Data Result diagrams: 12/19/22 13:29 12/19/22 13:29 <Sharlene Kennedy A - Last Filed: 12/20/22 00:08> - Medical Decision Making Was pt. sent in by a medical professional or institution (, [facility], [facility], urgent care, hospital, or fpc...) When possible be specific @ -Yes patient was sent in by primary care office Did you speak to anyone other than the patient for history (EMS, parent, family, police, friend...)? What history was obtained from this source @ -I did speak with Dr. Hancock Did you review nursing and triage notes (agree or disagree)? Why? @ -I reviewed and agree with nursing and triage notes Were old charts reviewed (outside hosp., previous admission, EMS record, old EKG, old radiological studies, urgent care reports/EKG's, fpc records)? Report findings @ -No old charts were reviewed Differential Diagnosis (chest pain, altered mental status, abdominal pain women, abdominal pain men, vaginal bleeding, weakness, fever, dyspnea, syncope, headache, dizziness, GI bleed, back pain, seizure, CVA, palpatations, mental health, musculoskeletal)? @ -Differential Weakness: Hypoglycemia, shock, sepsis, hyponatremia, anemia, infection, [place], ETOH, adverse medicine reaction, overdose, stroke, this is not meant to be an all-inclusive list. EKG interpreted by me (3pts min.). @ -Yes and demonstrates sinus bradycardia with a rate of 59. [place] interval 185. QRS 90. QTC of 400. No acute ST segment elevations or depressions X-rays interpreted by me (1pt min.). @ -Yes and demonstrates no acute process CT interpreted by me (1pt min.). @ -None done U/S interpreted by me (1pt. min.). @ -None done What testing was considered but not performed or refused? (CT, X-rays, U/S, labs)? Why? @ -None What meds were considered but not given or refused? Why? @ -None Did you discuss the management of the patient with other professionals (professionals i.e. Dr., PA, DISHWASHER BUSSER, lab, RT, psych nurse, oncology social worker, county superintendent of schools, teacher, custom protection officer, therapeutic case manager)? Give summary @ -Spoke with Dr. Hancock who will admit the patient with a neuro consult and physical therapy consult Was smoking cessation discussed for >3mins.? @ -No Was critical care preformed (if so, how long)? @ -No Were there social determinants of health that impacted care today? How? (K[place] elessness, low income, unemployed, alcoholism, drug addiction, transportation, low edu. Level, literacy, decrease access to med. care, residential, rehab)? @ -Patient has a guardian and is a poor historian Was there de-escalation of care discussed even if they declined (Discuss DNR or withdrawal of care, Hospice)? DNR status @ -No What co-morbidities impacted this encounter? (DM, HTN, Smoking, COPD, CAD, Cancer, CVA, ARF, Chemo, Hep., AIDS, mental health diagnosis, sleep apnea, morbid obesity)? @ -Seizure disorder Was patient admitted / discharged? Hospital course, mention meds given and route, prescriptions, significant lab abnormalities, going to OR and other pertinent info. @ -Upon arrival patient was placed into room 1. Thorough history and physical exam was performed. IV is established laboratory studies are conducted. Chest x-rays performed. I did call and speak with Dr. Hancock. States that the patient has been somewhat unsafe at home and therefore patient should be admitted for physical therapy consultation as well as neurology consultation. Patient was agreeable to admission. Bridging orders were placed and the patient was taken to the floor in stable condition Undiagnosed new problem with uncertain prognosis? @ -yes Drug Therapy requiring intensive monitoring for toxicity (Heparin, Nitro, Insulin, Cardizem)? @ -No Were any procedures done? @ -No Diagnosis/symptom? @ -Multiple falls Acute, or Chronic, or Acute on Chronic? @ -Acute Uncomplicated (without systemic symptoms) or Complicated (systemic symptoms)? @ -Complicated Side effects of treatment? @ -No Exacerbation, Progression, or Severe Exacerbation? @ -No Poses a threat to life or bodily function? How? (Chest pain, [place], [place], pneumonia, PE, COPD, DKA, ARF, appy, cholecystitis, CVA, Diverticulitis, Homicidal, Suicidal, threat to staff... and all critical care pts) @ -No (Sharlene Kennedy) - Lab Data Lab Results 12/19/22 12/19/22 12/19/22 Range/Units 13:29 13:29 13:29 WBC 6.4 (3.8-10.6) k/uL RBC 4.13 (3.80-5.40) m/uL Hgb 13.3 (11.4-16.0) gm/dL Hct 38.9 (34.0-46.0) % MCV 94.3 (80.0-100.0) fL MCH 32.3 (25.0-35.0) pg MCHC 34.3 (31.0-37.0) g/dL RDW 12.6 (11.5-15.5) % Plt Count 235 (150-450) k/uL MPV 7.8 Neutrophils % 64 % Lymphocytes % 29 % Monocytes % 4 % Eosinophils % 1 % Basophils % 0 % Neutrophils # 4.1 (1.3-7.7) k/uL Lymphocytes # 1.9 (1.0-4.8) k/uL Monocytes # 0.3 (0-1.0) k/uL Eosinophils # 0.1 (0-0.7) k/uL Basophils # 0.0 (0-0.2) k/uL PT 11.3 (9.0-12.0) sec INR 1.1 (<1.2) APTT 26.3 (22.0-30.0) sec Sodium 139 (137-145) mmol/L Potassium 3.8 (3.5-5.1) mmol/L Chloride 104 (98-107) mmol/L Carbon Dioxide 28 (22-30) mmol/L Anion Gap 7 mmol/L BUN 11 (7-17) mg/dL Creatinine 0.58 (0.52-1.04) mg/dL Est GFR (CKD-EPI)AfAm >90 (>60 ml/min/1.73 sqM) Est GFR (CKD-EPI)NonAf >90 (>60 ml/min/1.73 sqM) Glucose 101 H (74-99) mg/dL Plasma Lactic Acid Kd (0.7-2.0) mmol/L Calcium 9.2 (8.4-10.2) mg/dL Total Bilirubin 0.6 (0.2-1.3) mg/dL AST 20 (14-36) U/L ALT 12 (4-34) U/L Alkaline Phosphatase 54 (38-126) U/L Troponin I (0.000-0.034) ng/mL Total Protein 6.9 (6.3-8.2) g/dL Albumin 4.2 (3.5-5.0) g/dL Urine Color Urine Appearance (Clear) Urine pH (5.0-8.0) Ur Specific [place] (1.001-1.035) Urine Protein (Negative) Urine Glucose (UA) (Negative) Urine Ketones (Negative) Urine Blood (Negative) Urine Nitrite (Negative) Urine Bilirubin (Negative) Urine Urobilinogen (<2.0) mg/dL Ur Leukocyte Esterase (Negative) 12/19/22 12/19/22 12/19/22 Range/Units 13:29 13:29 16:30 WBC (3.8-10.6) k/uL RBC (3.80-5.40) m/uL Hgb (11.4-16.0) gm/dL Hct (34.0-46.0) % MCV (80.0-100.0) fL MCH (25.0-35.0) pg MCHC (31.0-37.0) g/dL RDW (11.5-15.5) % Plt Count (150-450) k/uL MPV Neutrophils % % Lymphocytes % % Monocytes % % Eosinophils % % Basophils % % Neutrophils # (1.3-7.7) k/uL Lymphocytes # (1.0-4.8) k/uL Monocytes # (0-1.0) k/uL Eosinophils # (0-0.7) k/uL Basophils # (0-0.2) k/uL PT (9.0-12.0) sec INR (<1.2) APTT (22.0-30.0) sec Sodium (137-145) mmol/L Potassium (3.5-5.1) mmol/L Chloride (98-107) mmol/L Carbon Dioxide (22-30) mmol/L Anion Gap mmol/L BUN (7-17) mg/dL Creatinine (0.52-1.04) mg/dL Est GFR (CKD-EPI)AfAm (>60 ml/min/1.73 sqM) Est GFR (CKD-EPI)NonAf (>60 ml/min/1.73 sqM) Glucose (74-99) mg/dL Plasma Lactic Acid Kd 0.8 (0.7-2.0) mmol/L Calcium (8.4-10.2) mg/dL Total Bilirubin (0.2-1.3) mg/dL AST (14-36) U/L ALT (4-34) U/L Alkaline Phosphatase (38-126) U/L Troponin I <0.012 (0.000-0.034) ng/mL Total Protein (6.3-8.2) g/dL Albumin (3.5-5.0) g/dL Urine Color Light Yellow Urine Appearance Clear (Clear) Urine pH 5.5 (5.0-8.0) Ur Specific [place] 1.028 (1.001-1.035) Urine Protein Trace H (Negative) Urine Glucose (UA) Negative (Negative) Urine Ketones Negative (Negative) Urine Blood Negative (Negative) Urine Nitrite Negative (Negative) Urine Bilirubin Negative (Negative) Urine Urobilinogen <2.0 (<2.0) mg/dL Ur Leukocyte Esterase Negative (Negative) Disposition <Celia Negro - Last Filed: 12/19/22 12:15> Is patient prescribed a controlled substance at d/c from ED?: No Time of Disposition: 17:34 Decision to Admit Reason: Admit from EC Decision Date: 12/19/22 Decision Time: 17:34 <Sharlene Kennedy - Last Filed: 12/20/22 00:08> Clinical Impression: Recurrent falls Disposition: ADMITTED IP TO THIS [facility] Condition: Stable
--- NOTE | 2022-12-19 13:33 | XR ---
EXAMINATION TYPE: XR chest 2V DATE OF EXAM: 12/19/2022 COMPARISON: 08/06/2022 TECHNIQUE: PA and lateral views submitted. HISTORY: Weakness FINDINGS: The lungs are clear and there is no pneumothorax, pleural effusion, or focal pneumonia. Heart size normal and no overt failure. Osseous structures demonstrate hypertrophic and degenerative changes of the spine. There is a multiple subcutaneous implanted devices. IMPRESSION: 1. No acute process.
[2022-12-19 13:52] LABS: Basophils % (A) 0 %; Eosinophils # (A) 0.1 k/uL (0-0.7); Eosinophils % (A) 1 %; HCT 38.9 % (34.0-46.0); HGB 13.3 gm/dL (11.4-16.0); Lymphocytes # (A) 1.9 k/uL (1.0-4.8); Lymphocytes % (A) 29 %; MCH 32.3 pg (25.0-35.0); MCHC 34.3 g/dL (31.0-37.0); MCV 94.3 fL (80.0-100.0); Mean Platelet Volume 7.8; Monocytes # (A) 0.3 k/uL (0-1.0); Monocytes % (A) 4 %; Neutrophils # (A) 4.1 k/uL (1.3-7.7); Neutrophils % (A) 64 %; Platelet Count 235 k/uL (150-450); RBC 4.13 m/uL (3.80-5.40); RDW 12.6 % (11.5-15.5); WBC 6.4 k/uL (3.8-10.6)
[2022-12-19 14:07] LABS: INR 1.1 (<1.2); Partial Thromboplastin Time 26.3 sec (22.0-30.0); Prothrombin Time 11.3 sec (9.0-12.0)
[2022-12-19 14:09] LABS: ALT 12 U/L (4-34); AST 20 U/L (14-36); African American GFR (CKD) >90 (>60 ml/min/1.73 sqM); Albumin 4.2 g/dL (3.5-5.0); Alkaline Phosphatase 54 U/L (38-126); Anion Gap 7 mmol/L; Blood Urea Nitrogen 11 mg/dL (7-17); Calcium 9.2 mg/dL (8.4-10.2); Carbon Dioxide 28 mmol/L (22-30); Chloride 104 mmol/L (98-107); Glucose 101 mg/dL (74-99); Non-African American GFR(CKD) >90 (>60 ml/min/1.73 sqM); Potassium 3.8 mmol/L (3.5-5.1); Sodium 139 mmol/L (137-145); Total Bilirubin 0.6 mg/dL (0.2-1.3); Total Protein 6.9 g/dL (6.3-8.2)
[2022-12-19 17:13] LABS: Appearance,Urine Clear (Clear); Bilirubin,Urine Negative (Negative); Blood,Urine Negative (Negative); Glucose,Urine (UA) Negative (Negative); Ketones,Urine Negative (Negative); Leukocyte Esterase,Urine Negative (Negative); Nitrite,Urine Negative (Negative); PH, Urine 5.5 (5.0-8.0); Protein,Urine Trace (Negative); Specific Gravity,Urine 1.028 (1.001-1.035); Urobilinogen,Urine <2.0 mg/dL (<2.0)
[2022-12-19 17:18] LABS: Color,Urine Light Yellow
[2022-12-19] MEDS ORDERED: NALOXONE 0.4 MG/ML 1 ML VIAL IV PRN (17:34)
[2022-12-19] MEDS ORDERED: ALPRAZolam 0.25 MG TAB PO PRN (18:24)
[2022-12-19] MEDS: SODIUM CHLORIDE 0.9% 1,000 ML IV SCH (19:26)
[2022-12-19] MEDS: BUDESONIDE 1 MG/2 ML NEBU INHALATION SCH (19:42)
[2022-12-19] MEDS ORDERED: MONTELUKAST 10 MG TAB PO SCH (21:00)
[2022-12-19] MEDS ORDERED: PERAMPANEL 10 MG PO SCH (21:00)
[2022-12-19] MEDS ORDERED: ATORVASTATIN 10 MG TAB PO SCH (21:00)
[2022-12-20 05:56] LABS: Basophils % (A) 0 %; Eosinophils # (A) 0.1 k/uL (0-0.7); Eosinophils % (A) 1 %; HCT 36.6 % (34.0-46.0); HGB 12.2 gm/dL (11.4-16.0); Lymphocytes % (A) 32 %; MCH 31.4 pg (25.0-35.0); MCHC 33.4 g/dL (31.0-37.0); MCV 94.1 fL (80.0-100.0); Mean Platelet Volume 8.3; Monocytes # (A) 0.4 k/uL (0-1.0); Monocytes % (A) 7 %; Neutrophils # (A) 3.6 k/uL (1.3-7.7); Neutrophils % (A) 58 %; Platelet Count 186 k/uL (150-450); RBC 3.89 m/uL (3.80-5.40); RDW 12.5 % (11.5-15.5); WBC 6.2 k/uL (3.8-10.6)
[2022-12-20 06:00] LABS: African American GFR (CKD) >90 (>60 ml/min/1.73 sqM); Anion Gap 6 mmol/L; Blood Urea Nitrogen 9 mg/dL (7-17); Calcium 9.1 mg/dL (8.4-10.2); Carbon Dioxide 27 mmol/L (22-30); Chloride 104 mmol/L (98-107); Glucose 88 mg/dL (74-99); Non-African American GFR(CKD) >90 (>60 ml/min/1.73 sqM); Potassium 3.7 mmol/L (3.5-5.1); Sodium 137 mmol/L (137-145)
[2022-12-20] MEDS: SODIUM CHLORIDE 0.9% 1,000 ML IV SCH (06:26)
[2022-12-20] MEDS ORDERED: LEVOTHYROXINE 100 MCG TAB PO SCH (06:30)
[2022-12-20 07:29] VITALS: BP 145/93; RESP 16; TEMP 98.3
[2022-12-20] MEDS: FUROSEMIDE 40 MG TAB PO SCH ×2 (08:42→15:06)
[2022-12-20] MEDS ORDERED: POTASSIUM CHLORIDE ER 20 MEQ TAB.ER PO SCH (09:00)
[2022-12-20] MEDS ORDERED: LORATADINE 10 MG TAB PO SCH (09:00)
[2022-12-20] MEDS ORDERED: LOSARTAN 25 MG TAB PO SCH (09:00)
[2022-12-20] MEDS ORDERED: PANTOPRAZOLE 40 MG TABLET PO SCH (09:00)
[2022-12-20] MEDS ORDERED: FERROUS SULFATE 325 MG TAB PO SCH (09:00)
[2022-12-20] MEDS ORDERED: ASPIRIN 81 MG PO SCH (09:00)
[2022-12-20] MEDS: BUDESONIDE 1 MG/2 ML NEBU INHALATION SCH (09:26)
[2022-12-20 09:31] VITALS: PULSE 65
--- NOTE | 2022-12-24 15:27 | HP ---
HISTORY AND PHYSICAL HISTORY OF PRESENT ILLNESS: This 62-year-old white female came to the emergency room after seeing the heart doctor. She had walked from her apartment all the way down to heart doctor's office, which is about half a mile, then she got a little tired, missed the bus ride, she had no ride home. She came to the ER because she was dehydrated and tired, so we gave her fluids overnight and she is doing much better today. She is having no chest pain, no seizures. She is on all her normal medicines. She has just been weak. She really has not fallen she says at home, which is what I heard from the ER, but she did not have a ride home, she missed her boss. She has a home nurse at [facility]. MEDICATIONS: Reviewed. ALLERGIES: Reviewed. PAST MEDICAL HISTORY: Reviewed, include seizures, sleep apnea, diastolic heart failure, osteoarthritis, hypertension, hypothyroidism. SURGERIES: Gastric sleeve surgery, cervical surgery, loop recorder. FAMILY HISTORY: Stomach cancer in her sister and her mom. PHYSICAL EXAMINATION: GENERAL: A white female, no acute distress. She is weak, disheveled, tired, decreased skin turgor, decreased mucous membranes. CARDIOVASCULAR: S1, S2. LUNGS: Transmitted upper sounds. HEMATOLOGY: Negative for [place], 2+ edema. PSYCH: Fair mood and affect. Her spirits are normal. She is talking normal. NEUROLOGIC: Cranial nerves are intact on neuro exam. GI: Soft, nontender. BACK: Nontender. ASSESSMENT: Dehydration, she has depression, she has sleep apnea. She has heart disease, diastolic, seizures, sleep apnea. She has mental delay since childbirth, but she is going to get fluids overnight and then she is going to be discharged home. CONDITION: Stable. PROGNOSIS: Guarded. MMODL / IJN: [id number] /
== END 2022-12-20 16:00 | disposition home or self-care (01) ==
LOC: EC 11:47 → 6NMEDSUR 17:35
PROVIDERS: ADMIT Family Medicine; ATTEND Family Medicine
DX: E86.0 Dehydration (principal); G47.30 Sleep apnea, unspecified; R29.6 Repeated falls; E03.9 Hypothyroidism, unspecified; I11.0 Hypertensive heart disease with heart failure; I50.32 Chronic diastolic (congestive) heart failure; F32.A Depression, unspecified; J45.909 Unspecified asthma, uncomplicated; K21.9 Gastro-esophageal reflux disease without esophagitis; G25.81 Restless legs syndrome; R62.50 Unspecified lack of expected normal physiological development in childhood; Z79.82 Long term (current) use of aspirin; Z79.899 Other long term (current) drug therapy; Z79.890 Hormone replacement therapy; Z79.83 Long term (current) use of bisphosphonates; Z79.51 Long term (current) use of inhaled steroids; Z88.0 Allergy status to penicillin; Z88.6 Allergy status to analgesic agent; Z91.040 Latex allergy status
CPT/HCPCS: 99285; 36415; 94640; 93005; 80053; 80048; 83605; 84484; 85025 ×2; 85610; 85730; 81003; 71046; G0378 ×2

== ENCOUNTER → 2022-12-22 | Outpatient (CLI) | payer MEDICARE, OTHER ==
[2022-12-22 13:03] VITALS: BP 108/76; PULSE 57; TEMP 97.4; BMI 28.2
--- NOTE | 2023-01-28 11:13 | P.HPBAR ---
Bariatric H&P - History & Physicial H&P Date: 12/22/22 History & Physicial: Visit/CC: sleeve F/U Patient initial contact: Initial weight: 137.438 kg Initial weight in pounds: 303.00 Height: 5 ft 7 in Initial BMI: 47.4 Last weight: Current weight: 81.692 kg Current weight in pounds: 180.10 Current BMI: 28.2 [place] body weight (based on NIH guidelines): 61.235 kg Excess body weight loss: 73.1% The patient is a 62 year-old F who presents for Bariatric Assessment. Patient resents today for sleeve gastrectomy follow-up. She's lost 16 pounds since her last visit. She has minimal GERD. She denies any dysphagia. Past Medical History Past Medical History: Asthma, Chest Pain / Angina, Heart Failure, GERD/Reflux, Hyperlipidemia, Hypertension, Osteoarthritis (OA), Pneumonia, Seizure Disorder, Skin Disorder, Sleep Apnea/CPAP/BIPAP, Thyroid Disorder Additional Past Medical History / Comment(s): Pinched nerves in back and neck, uses cane. Last seizure 4 weeks ago. "Blood pressure and heart rate go up and down all the time." Developementally disabled. Restless leg syndrome, neck and back pain with pain down bilateral legs, leg weakness, occasional numbness and tingling to bilateral hands and feet. CPAP use. Abdominal pain, diarrhea right after eating. Hx falls, persistant itching-cause unknown. Sees pain specialist for chronic pain. Hx pneumonia dehydration and seizure Dec 2021. Swelling in legs. History of Any Multi-Drug Resistant Organisms: None Reported Past Surgical History: Adenoidectomy, Bariatric Surgery, Cholecystectomy, Heart Catheterization, Hernia Repair, Hysterectomy, Tonsillectomy Additional Past Surgical History / Comment(s): Cervical surgery/cage, sleeve gastrectomy 12-01-18, LOOP RECORDER 05/28/2020. Past Anesthesia/Blood Transfusion Reactions: Previous Problems w/ Anesthesia Additional Past Anesthesia/Blood Transfusion Reaction / Comm: "Slow to wake up". States "was told by my sister's boyfriend that I had trouble breathing and almost during my neck surgery". No hx blood transfusion. Date of Last Stent Placement:: 06/03/2014 Type of Cardiac Device: Unknown Device Placement Date:: 05/28/2020 Past Psychological History: Depression Additional Psychological History / Comment(s): Pt states she currently resides with her sister. She is mildly developmentally delayed. 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 Past Drug Use History: None Reported - Past Family History Father Family Medical History: Cancer Additional Family Medical History / Comment(s): Stomach cancer. Sister(s) Family Medical History: Cancer Additional Family Medical History / Comment(s): Stomach cancer. Mother Family Medical History: No Reported History Additional Family Medical History / Comment(s): . Surgical - Exam Vital Signs Temp Pulse BP 97.4 F L 57 L 108/76 12/22/22 12:53 12/22/22 12:53 12/22/22 12:53 - General well developed, well nourished, no distress - Eyes PERRL - ENT normal pinna - Neck no masses - Respiratory normal expansion - Cardiovascular Rhythm: regular - Abdomen Abdomen: soft, non tender Bariatric Assessment & Plan Plan: Patient has had excellent weight loss. Her GERD is minimal will be observed. She'll follow-up in 4 weeks. Bariatric Checklist Checklist: Plan: Checklist: EGD: 1. Hiatal hernia: 2. H. Pylori: HgbA1c: Vitamin D: Smoking: Never smoker Primary care physician referral: PCP Barbara Carter=, Accounts Specialist=[place] [facility] clearance: Cardiology clearance: Sleep study: Diet journal: VTE risk score: VTE risk level: Rehab needs at discharge:
== END ==
LOC: BARWHC3 12:45
PROVIDERS: ATTEND Surgery
DX: K21.9 Gastro-esophageal reflux disease without esophagitis (principal); J45.909 Unspecified asthma, uncomplicated; E78.5 Hyperlipidemia, unspecified; I11.0 Hypertensive heart disease with heart failure; I50.9 Heart failure, unspecified; M19.90 Unspecified osteoarthritis, unspecified site; G47.30 Sleep apnea, unspecified; Z86.69 Personal history of other diseases of the nervous system and sense organs; Z98.84 Bariatric surgery status; Z91.048 Other nonmedicinal substance allergy status; Z91.030 Bee allergy status; Z88.8 Allergy status to other drugs, medicaments and biological substances; Z88.6 Allergy status to analgesic agent; Z88.0 Allergy status to penicillin; Z91.040 Latex allergy status; Z79.899 Other long term (current) drug therapy; Z79.890 Hormone replacement therapy; Z79.51 Long term (current) use of inhaled steroids; Z79.82 Long term (current) use of aspirin
CPT/HCPCS: 99211

== ENCOUNTER 2023-01-08 11:13 | Observation (INO) | payer MEDICARE, OTHER ==
--- NOTE | 2023-01-08 11:41 | ED ---
General Adult HPI - General Source: patient, RN notes reviewed Mode of arrival: ambulatory Limitations: no limitations <Aram Maxwell - Last Filed: 01/08/23 11:40> <Kwadwo Giles - Last Filed: 01/08/23 18:44> - General Stated complaint: Fall Time Seen by Provider: 01/08/23 11:41 - History of Present Illness Initial comments: 62-year-old female presents emergency Department with chief complaint of multiple falls. Patient's states she is very dizzy lightheaded all she is extensive bruising of her face. She does complain of a headache no blood thinners. (Aram Maxwell) - Related Data Home Medications Medication Instructions Recorded Confirmed Aspirin EC [Ecotrin Low Dose] 81 mg PO DAILY 02/22/19 01/08/23 Pantoprazole [Protonix] 40 mg PO DAILY 11/10/19 01/08/23 Albuterol Inhaler [Ventolin Hfa 2 puff INHALATION RT-Q4H PRN 09/14/20 01/08/23 Inhaler] Montelukast [Singulair] 10 mg PO HS 09/14/20 01/08/23 levETIRAcetam [Keppra] 1,500 mg PO BID 09/14/20 01/08/23 Meclizine [Antivert] 25 mg PO DAILY PRN 01/23/21 01/08/23 Ferrous Sulfate [Iron] 325 mg PO DAILY 02/18/22 01/08/23 Levothyroxine Sodium 100 mcg PO DAILY 02/18/22 01/08/23 ALPRAZolam [Xanax] 0.25 mg PO Q12H PRN 05/19/22 01/08/23 Cyanocobalamin (Vitamin B-12) 1,000 mcg PO DAILY 05/19/22 01/08/23 [Vitamin B-12] Ergocalciferol [Vitamin D2 (1250 1,250 mcg PO BUCKLEY 05/19/22 01/08/23 Mcg = 89622 Iu)] Loratadine [Claritin] 10 mg PO DAILY 05/19/22 01/08/23 Losartan [Cozaar] 25 mg PO DAILY 05/19/22 01/08/23 Lovastatin [Mevacor] 40 mg PO HS 05/19/22 01/08/23 Alendronate Sodium [Fosamax] 70 mg PO BUCKLEY 08/06/22 01/08/23 Fluticasone Propionate 220 Mcg 2 puff INHALATION RT-BID 08/06/22 01/08/23 [Flovent 220 Mcg Inhaler] HYDROcodone/APAP 10-325MG [[place] 1 tab PO QID PRN 08/06/22 01/08/23 10-325] Perampanel [Fycompa] 10 mg PO HS 08/06/22 01/08/23 Potassium Chloride 20 meq PO DAILY 08/06/22 01/08/23 Budesonide [Pulmicort] 1 mg INHALATION RT-BID 12/19/22 01/08/23 Clindamycin [Cleocin] 150 mg PO Q6H 01/08/23 01/08/23 Allergies Allergy/AdvReac Type Severity Reaction Status Date / Time adhesive Allergy Rash/Hives Verified 01/08/23 14:53 bee venom protein (honey bee) Allergy Anaphylaxis Verified 01/08/23 14:53 buspirone [From BuSpar] Allergy Itching Verified 01/08/23 14:53 divalproex sodium Allergy Swelling Verified 01/08/23 14:53 [From Depakote] ibuprofen [From Motrin] Allergy Rash/Hives Verified 01/08/23 14:53 latex Allergy Rash/Hives Verified 01/08/23 14:53 Penicillins Allergy Rash/Hives Verified 01/08/23 14:53 topiramate [From Topamax] Allergy Swelling Verified 01/08/23 14:53 Review of Systems ROS Other: All systems not noted in ROS Statement are negative. <Aram Maxwell - Last Filed: 01/08/23 11:40> ROS Other: All systems not noted in ROS Statement are negative. <Kwadwo Giles - Last Filed: 01/08/23 18:44> ROS Statement: Those systems with pertinent positive or pertinent negative responses have been documented in the HPI. Past Medical History Past Medical History: Asthma, Chest Pain / Angina, Heart Failure, GERD/Reflux, Hyperlipidemia, Hypertension, Osteoarthritis (OA), Pneumonia, Seizure Disorder, Skin Disorder, Sleep Apnea/CPAP/BIPAP, Thyroid Disorder Additional Past Medical History / Comment(s): Pinched nerves in back and neck, uses cane. Last seizure 4 weeks ago. "Blood pressure and heart rate go up and down all the time." Developementally disabled. Restless leg syndrome, neck and back pain with pain down bilateral legs, leg weakness, occasional numbness and tingling to bilateral hands and feet. CPAP use. Abdominal pain, diarrhea right after eating. Hx falls, persistant itching-cause unknown. Sees pain specialist for chronic pain. Hx pneumonia dehydration and seizure Dec 2021. Swelling in legs. History of Any Multi-Drug Resistant Organisms: None Reported Past Surgical History: Adenoidectomy, Bariatric Surgery, Cholecystectomy, Heart Catheterization, Hernia Repair, Hysterectomy, Tonsillectomy Additional Past Surgical History / Comment(s): Cervical surgery/cage, sleeve gastrectomy 12-01-18, LOOP RECORDER 05/28/2020. Past Anesthesia/Blood Transfusion Reactions: Previous Problems w/ Anesthesia Additional Past Anesthesia/Blood Transfusion Reaction / Comment(s): "Slow to wake up". States "was told by my sister's boyfriend that I had trouble breathing and almost during my neck surgery". No hx blood transfusion. Date of Last Stent Placement:: 06/03/2014 Type of Cardiac Device: Unknown Device Placement Date:: 05/28/2020 Past Psychological History: Depression Additional Psychological History / Comment(s): Pt states she currently resides with her sister. She is mildly developmentally delayed. 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 Past Drug Use History: None Reported - Past Family History Father Family Medical History: Cancer Additional Family Medical History / Comment(s): Stomach cancer. Sister(s) Family Medical History: Cancer Additional Family Medical History / Comment(s): Stomach cancer. Mother Family Medical History: No Reported History Additional Family Medical History / Comment(s): . <Aram Maxwell M - Last Filed: 01/08/23 11:40> General Exam <Aram Maxwell - Last Filed: 01/08/23 11:40> General appearance: alert, in no apparent distress Head exam: Present: atraumatic, normocephalic Eye exam: Present: PERRL, other (Periorbital ecchymosis bilateral) Neck exam: Present: normal inspection. Absent: tenderness Respiratory exam: Present: normal lung sounds bilaterally. Absent: respiratory distress Cardiovascular Exam: Present: regular rate, normal rhythm GI/Abdominal exam: Present: soft. Absent: distended, tenderness, guarding Extremities exam: Present: normal inspection, normal capillary refill Neurological exam: Present: alert. Absent: motor sensory deficit Skin exam: Present: warm, dry <Kwadwo Giles - Last Filed: 01/08/23 18:44> - General Exam Comments Initial Comments: Visual Physical Exam Vital signs reviewed General: Well-appearing, nontoxic, no acute distress. Head: Normocephalic, atraumatic Eyes: PERRLA, EOMI periorbital ecchymosis ENT: Airway patent Chest: Nonlabored breathing Skin: No visual rash, normal skin tone Neuro: Alert and oriented 3 Musculoskeletal: No gross abnormalities (Aram Maxwell) Course Vital Signs 01/08/23 01/08/23 01/08/23 11:38 14:12 16:11 Temperature 98 F Pulse Rate 78 61 58 L Respiratory 16 18 18 Rate Blood Pressure 119/81 128/104 155/89 O2 Sat by Pulse 100 100 100 Oximetry Medical Decision Making <Aram Maxwell - Last Filed: 01/08/23 11:40> - Lab Data Result diagrams: 01/08/23 13:06 01/08/23 13:06 <Kwadwo Giles - Last Filed: 01/08/23 18:44> - Medical Decision Making I performed a quick note portion of this chart signed Aram Maxwell PA-C (Aram Maxwell) Was pt. sent in by a medical professional or institution (NA[facility] Dhillon, EMBEDDED LINUX ENGINEER, urgent care, hospital, or intermediate...) When possible be specific @ -No Did you speak to anyone other than the patient for history (EMS, parent, family, police, friend...)? What history was obtained from this source @ -No Did you review nursing and triage notes (agree or disagree)? Why? @ -I reviewed and agree with nursing and triage notes Were old charts reviewed (outside hosp., previous admission, EMS record, old EKG, old radiological studies, urgent care reports/EKG's, intermediate records)? Report findings @ -No old charts were reviewed Differential Diagnosis (chest pain, altered mental status, abdominal pain women, abdominal pain men, vaginal bleeding, weakness, fever, dyspnea, syncope, headache, dizziness, GI bleed, back pain, seizure, CVA, palpatations, mental health, musculoskeletal)? @ -[Differential Weakness: Hypoglycemia, shock, sepsis, hyponatremia, anemia, infection, [place], ETOH, adverse medicine reaction, overdose, stroke, this is not meant to be an all-inclusive list. EKG interpreted by me (3pts min.). @ -Sinus rhythm rate of 74, TX interval 175, QRS duration 89, QTC 4:[address] se gment elevation. X-rays interpreted by me (1pt min.). @ -None done CT interpreted by me (1pt min.). @ -CT brain, C-spine, facial bones, negative for traumatic injury U/S interpreted by me (1pt. min.). @ -None done What testing was considered but not performed or refused? (CT, X-rays, U/S, labs)? Why? @ -None What meds were considered but not given or refused? Why? @ -None Did you discuss the management of the patient with other professionals (professionals i.e. , PA, EMBEDDED LINUX ENGINEER, lab, RT, psych nurse, child protective services social worker, android ios developer, teacher, fisheries enforcement officer, nurse outreach case manager)? Give summary @Dr. aHncock Was smoking cessation discussed for >3mins.? @ -No Was critical care preformed (if so, how long)? @ -No Were there social determinants of health that impacted care today? How? (Homelessness, low income, unemployed, alcoholism, drug addiction, transportation, low edu. Level, literacy, decrease access to med. care, intermediate, rehab)? @ -No Was there de-escalation of care discussed even if they declined (Discuss DNR or withdrawal of care, Hospice)? DNR status @ -No What co-morbidities impacted this encounter? (DM, HTN, Smoking, COPD, CAD, Cancer, CVA, ARF, Chemo, Hep., AIDS, mental health diagnosis, sleep apnea, morbid obesity)? @ -[Weakness, frequent falls Was patient admitted / discharged? Hospital course, mention meds given and route, prescriptions, significant lab abnormalities, going to OR and other pertinent info. @ -[62-year-old female presenting to emergency Department with weakness, difficulty ambulating, frequent falls, patient will likely require placement into intermediate care. Case discussed with Dr. Hancock who will admit. Undiagnosed new problem with uncertain prognosis? @ -No Drug Therapy requiring intensive monitoring for toxicity (Heparin, Nitro, Insulin, Cardizem)? @ -No Were any procedures done? @ -No Diagnosis/symptom? @ -[Weakness, frequent falls, gait instability Acute, or Chronic, or Acute on Chronic? @ -Acute Uncomplicated (without systemic symptoms) or Complicated (systemic symptoms)? @ -default Side effects of treatment? @ -No Exacerbation, Progression, or Severe Exacerbation? @ -No Poses a threat to life or bodily function? How? (Chest pain, [place], [place], pneumonia, PE, COPD, DKA, ARF, appy, cholecystitis, CVA, Diverticulitis, Homicidal, Suicidal, threat to staff... and all critical care pts) @ -[Moderate risk (Kwadwo Giles) - Lab Data Lab Results 01/08/23 01/08/23 01/08/23 Range/Units 13:06 13:06 13:06 WBC 5.0 (3.8-10.6) k/uL RBC 4.05 (3.80-5.40) m/uL Hgb 13.1 (11.4-16.0) gm/dL Hct 38.9 (34.0-46.0) % MCV 96.0 (80.0-100.0) fL MCH 32.2 (25.0-35.0) pg MCHC 33.6 (31.0-37.0) g/dL RDW 12.7 (11.5-15.5) % Plt Count 211 (150-450) k/uL MPV 7.7 Neutrophils % 48 % Lymphocytes % 42 % Monocytes % 6 % Eosinophils % 1 % Basophils % 0 % Neutrophils # 2.4 (1.3-7.7) k/uL Lymphocytes # 2.1 (1.0-4.8) k/uL Monocytes # 0.3 (0-1.0) k/uL Eosinophils # 0.1 (0-0.7) k/uL Basophils # 0.0 (0-0.2) k/uL Sodium 140 (137-145) mmol/L Potassium 4.1 (3.5-5.1) mmol/L Chloride 105 (98-107) mmol/L Carbon Dioxide 30 (22-30) mmol/L Anion Gap 5 mmol/L BUN 10 (7-17) mg/dL Creatinine 0.54 (0.52-1.04) mg/dL Est GFR (CKD-EPI)AfAm >90 (>60 ml/min/1.73 sqM) Est GFR (CKD-EPI)NonAf >90 (>60 ml/min/1.73 sqM) Glucose 97 (74-99) mg/dL Calcium 9.5 (8.4-10.2) mg/dL Magnesium 2.0 (1.6-2.3) mg/dL Total Bilirubin 0.4 (0.2-1.3) mg/dL AST 21 (14-36) U/L ALT 12 (4-34) U/L Alkaline Phosphatase 62 (38-126) U/L Troponin I <0.012 (0.000-0.034) ng/mL Total Protein 6.3 (6.3-8.2) g/dL Albumin 3.7 (3.5-5.0) g/dL Urine Color Urine Appearance (Clear) Urine pH (5.0-8.0) Ur Specific [place] (1.001-1.035) Urine Protein (Negative) Urine Glucose (UA) (Negative) Urine Ketones (Negative) Urine Blood (Negative) Urine Nitrite (Negative) Urine Bilirubin (Negative) Urine Urobilinogen (<2.0) mg/dL Ur Leukocyte Esterase (Negative) Urine RBC (0-5) /hpf Urine WBC (0-5) /hpf Ur Squamous Epith Cells (0-4) /hpf Urine Bacteria (None) /hpf Hyaline Casts (0-2) /lpf Urine Mucus (None) /hpf 01/08/23 Range/Units 17:45 WBC (3.8-10.6) k/uL RBC (3.80-5.40) m/uL Hgb (11.4-16.0) gm/dL Hct (34.0-46.0) % MCV (80.0-100.0) fL MCH (25.0-35.0) pg MCHC (31.0-37.0) g/dL RDW (11.5-15.5) % Plt Count (150-450) k/uL MPV Neutrophils % % Lymphocytes % % Monocytes % % Eosinophils % % Basophils % % Neutrophils # (1.3-7.7) k/uL Lymphocytes # (1.0-4.8) k/uL Monocytes # (0-1.0) k/uL Eosinophils # (0-0.7) k/uL Basophils # (0-0.2) k/uL Sodium (137-145) mmol/L Potassium (3.5-5.1) mmol/L Chloride (98-107) mmol/L Carbon Dioxide (22-30) mmol/L Anion Gap mmol/L BUN (7-17) mg/dL Creatinine (0.52-1.04) mg/dL Est GFR (CKD-EPI)AfAm (>60 ml/min/1.73 sqM) Est GFR (CKD-EPI)NonAf (>60 ml/min/1.73 sqM) Glucose (74-99) mg/dL Calcium (8.4-10.2) mg/dL Magnesium (1.6-2.3) mg/dL Total Bilirubin (0.2-1.3) mg/dL AST (14-36) U/L ALT (4-34) U/L Alkaline Phosphatase (38-126) U/L Troponin I (0.000-0.034) ng/mL Total Protein (6.3-8.2) g/dL Albumin (3.5-5.0) g/dL Urine Color Yellow Urine Appearance Clear (Clear) Urine pH 5.5 (5.0-8.0) Ur Specific [place] 1.024 (1.001-1.035) Urine Protein Trace H (Negative) Urine Glucose (UA) Negative (Negative) Urine Ketones Negative (Negative) Urine Blood Negative (Negative) Urine Nitrite Negative (Negative) Urine Bilirubin Negative (Negative) Urine Urobilinogen <2.0 (<2.0) mg/dL Ur Leukocyte Esterase Moderate H (Negative) Urine RBC 2 (0-5) /hpf Urine WBC 9 H (0-5) /hpf Ur Squamous Epith Cells 1 (0-4) /hpf Urine Bacteria Rare H (None) /hpf Hyaline Casts 11 H (0-2) /lpf Urine Mucus Many H (None) /hpf Disposition <Aram Maxwell - Last Filed: 01/08/23 11:40> Is patient prescribed a controlled substance at d/c from ED?: No Time of Disposition: 18:44 <Kwadwo Giles - Last Filed: 01/08/23 18:44> Clinical Impression: Gait instability, Weakness, Frequent falls Disposition: ADMITTED IP TO THIS HOSP Condition: Stable
--- NOTE | 2023-01-08 12:59 | CT ---
EXAMINATION TYPE: CT facial bones wo con DATE OF EXAM: 01/08/2023 COMPARISON: None HISTORY: Fall. CT DLP: 1146.[address] of the facial bones was performed in the axial and coronal planes. Bone and soft tissu e window settings are submitted. No significant soft tissue swelling is appreciated. I do not see evidence for displaced facial bone fracture or depressed facial bone fracture. The globes are intact. Paranasal sinuses are well-aerated. IMPRESSION: 1. No evidence for depressed or displaced facial bone fracture.
--- NOTE | 2023-01-08 13:01 | CT ---
EXAMINATION TYPE: CT brain cspine wo con DATE OF EXAM: 01/08/2023 COMPARISON: Brain 04/14/2022 HISTORY: 62-year-old female with pain after Fall. CT DLP: 1146.8 mGycm Automated exposure control for dose reduction was used. Technique: Examination of the head was done in axial plane without intravenous contrast. Coronal and sagittal reconstructions performed. CT of the cervical spine was obtained in axial plane without intravenous injection of contrast mater ial. Coronal and sagittal reformatted images were obtained from the axial views for evaluation of f ractures, spinal alignment and canal. FINDINGS: Head: There is no evidence of acute intracranial hemorrhage, acute ischemic changes, mass, mass-effect, or extra-axial fluid collection. There is no effacement of cerebral sulci or basal subarachnoid cister ns. There is no hydrocephalus. There is no midline shift. Dangelo-white matter distinction is preserv ed. Mild bifrontal cerebral cortical volume loss is unchanged. Partially empty sella likely incidental. Mastoid air cells well pneumatized. No calvarial fracture. Cervical spine: No craniocervical junction abnormalities, predental space widening, or prevertebral soft tissue swell ing. Degenerative change of the C1 dens articulation There is anterior subluxation at the right TMJ. Post surgical change C5-C7 ACF. There is residual posterior osteophytic ridging especially at C6-C7 i s in a left paracentral location likely contributing to mild overall spinal canal stenosis with at le ast moderate left neuroforaminal stenosis. Smaller osteophytic ridging C5-C6 and mild disc osteophyte complex C4-C5 mildly narrowing the spinal canal. No acute fracture seen. Facet arthropathy throughout. Sagittal and coronal reformatted images confirm above findings. COMBINED IMPRESSION: 1. No acute intracranial abnormality seen. 2. No acute fracture malalignment of the cervical spine. 3. Status post C5-C7 ACDF. Residual posterior osteophytic ridging at C6-C7 causes mild spinal canal s tenosis and moderate left neuroforaminal stenosis. 4. Right TMJ anterior subluxation. Possibly positional. Correlate for any local symptoms here. 5. Facial bones reported separately.
[2023-01-08] MEDS ORDERED: ONDANSETRON 4 MG/2 ML VIAL IVP STA (17:01)
[2023-01-08] MEDS ORDERED: SODIUM CHLORIDE 0.9% 1,000 ML IV ONE (17:01)
[2023-01-08 17:26] LABS: Basophils % (A) 0 %; Eosinophils # (A) 0.1 k/uL (0-0.7); Eosinophils % (A) 1 %; HCT 38.9 % (34.0-46.0); HGB 13.1 gm/dL (11.4-16.0); Lymphocytes # (A) 2.1 k/uL (1.0-4.8); Lymphocytes % (A) 42 %; MCH 32.2 pg (25.0-35.0); MCHC 33.6 g/dL (31.0-37.0); Mean Platelet Volume 7.7; Monocytes # (A) 0.3 k/uL (0-1.0); Monocytes % (A) 6 %; Neutrophils # (A) 2.4 k/uL (1.3-7.7); Neutrophils % (A) 48 %; Platelet Count 211 k/uL (150-450); RBC 4.05 m/uL (3.80-5.40); RDW 12.7 % (11.5-15.5)
[2023-01-08 17:44] LABS: ALT 12 U/L (4-34); AST 21 U/L (14-36); African American GFR (CKD) >90 (>60 ml/min/1.73 sqM); Albumin 3.7 g/dL (3.5-5.0); Alkaline Phosphatase 62 U/L (38-126); Anion Gap 5 mmol/L; Blood Urea Nitrogen 10 mg/dL (7-17); Calcium 9.5 mg/dL (8.4-10.2); Carbon Dioxide 30 mmol/L (22-30); Chloride 105 mmol/L (98-107); Glucose 97 mg/dL (74-99); Non-African American GFR(CKD) >90 (>60 ml/min/1.73 sqM); Potassium 4.1 mmol/L (3.5-5.1); Sodium 140 mmol/L (137-145); Total Bilirubin 0.4 mg/dL (0.2-1.3); Total Protein 6.3 g/dL (6.3-8.2)
[2023-01-08] MEDS ORDERED: ACETAMINOPHEN TAB 325 MG TAB PO PRN (17:52)
[2023-01-08] MEDS ORDERED: NALOXONE 0.4 MG/ML 1 ML VIAL IV PRN (17:52)
[2023-01-08 18:00] LABS: Appearance,Urine Clear (Clear); Bacteria,Urine Rare /hpf; Bilirubin,Urine Negative (Negative); Blood,Urine Negative (Negative); Color,Urine Yellow; Glucose,Urine (UA) Negative (Negative); Hyaline Casts,Urine 11 /lpf (0-2); Ketones,Urine Negative (Negative); Leukocyte Esterase,Urine Moderate (Negative); Mucus,Urine Many /hpf; Nitrite,Urine Negative (Negative); PH, Urine 5.5 (5.0-8.0); Protein,Urine Trace (Negative); RBC,Urine 2 /hpf (0-5); Specific Gravity,Urine 1.024 (1.001-1.035); Squamous Epithelial Cell,Urine 1 /hpf (0-4); Urobilinogen,Urine <2.0 mg/dL (<2.0); WBC,Urine 9 /hpf (0-5)
[2023-01-08] MEDS: SODIUM CHLORIDE 0.9% 1,000 ML IV SCH (19:26)
[2023-01-08] MEDS ORDERED: ALPRAZolam 0.25 MG TAB PO PRN (22:15)
[2023-01-08] MEDS ORDERED: MECLIZINE 25 MG TAB PO PRN (22:15)
[2023-01-09] MEDS: SODIUM CHLORIDE 0.9% 1,000 ML IV SCH ×2 (05:39→21:55)
[2023-01-09] MEDS: LEVOTHYROXINE 100 MCG TAB PO SCH (05:39)
[2023-01-09] MEDS: ALBUTEROL NEBULIZED 2.5 MG/3 ML INHALATION PRN ×2 (09:04→18:45)
[2023-01-09] MEDS: BUDESONIDE 1 MG/2 ML NEBU INHALATION SCH ×2 (09:04→18:45)
[2023-01-09] MEDS: FLUTICASONE 220 MCG INHALER INHALATION SCH ×2 (09:19→23:13)
[2023-01-09] MEDS: ASPIRIN 81 MG PO SCH (09:27)
[2023-01-09] MEDS: PANTOPRAZOLE 40 MG TABLET PO SCH (09:27)
[2023-01-09] MEDS: POTASSIUM CHLORIDE ER 20 MEQ TAB.ER PO SCH (09:27)
[2023-01-09] MEDS: CYANOCOBALAMIN 500 MCG TAB PO SCH (09:27)
[2023-01-09] MEDS: LOSARTAN 25 MG TAB PO SCH (09:27)
[2023-01-09] MEDS: FERROUS SULFATE 325 MG TAB PO SCH (09:27)
[2023-01-09] MEDS: LORATADINE 10 MG TAB PO SCH (09:28)
--- NOTE | 2023-01-09 19:25 | HP ---
HISTORY AND PHYSICAL HISTORY OF PRESENT ILLNESS: This is a 62-year-old white female, multiple falls at home. She says she trips over everything. She cannot take care of herself. She is tired and fatigued. She has bruising around her eyes from a fall. She had a face CT in the ER when she got here, showed no displaced fractures. She had head and cervical spine CT on admission, that showed partial empty sella. No intracranial process. No fracture of the spine. Osteophyte ridging. Mild spinal canal stenosis. Moderate foraminal stenosis on the left. Right TMJ subluxation, possible positional. Facial bones reported separately. She is supposed to see Neurosurgery as an outpatient. She came in with generalized weakness, fatigue, and unable to take care of herself. Home nursing told her to come to the emergency room and possibly go to a rehab center. She has multiple falls, very lightheaded, dizziness, extensive bruising of the face as mentioned. MEDICATIONS: Reviewed. REVIEW OF SYSTEMS: Fourteen-point review of systems is reviewed. ALLERGIES: Please see orders. PHYSICAL EXAMINATION: VITAL SIGNS: Reviewed. CARDIOVASCULAR: S1 and S2. LUNGS: Scattered wheeze. HEMATOLOGY: Negative Homans. PSYCHIATRIC: Fair mood and affect. NEUROLOGIC: Alert and oriented x3. OPHTHALMOLOGIC: Pupils are equal, round, and reactive. ASSESSMENT: 1. Gait instability, generalized weakness, and frequent falls. 2. History of seizures and pseudoseizures. 3. Cervical lumbar disk disease. 4. Orthostatic hypotension. PLAN: Prognosis is guarded. Get PT and OT involved. [facility]. She will need a penitentiary placement at this point. She has to be full admit. Possibly has UTI with sepsis. We will treat her for UTI at this point and wait for penitentiary placement. MMODL / IJN: [id number] /
[2023-01-09] MEDS: MONTELUKAST 10 MG TAB PO SCH (19:53)
[2023-01-09] MEDS: ATORVASTATIN 10 MG TAB PO SCH (19:53)
[2023-01-09] MEDS: HYDROcodone/APAP 10-325MG 1 EACH TAB PO PRN (19:54)
[2023-01-09] MEDS: PERAMPANEL 10 MG PO SCH (19:55)
[2023-01-10] MEDS: LEVOTHYROXINE 100 MCG TAB PO SCH (05:31)
[2023-01-10] MEDS: BUDESONIDE 1 MG/2 ML NEBU INHALATION SCH ×2 (08:27→20:02)
[2023-01-10] MEDS: PANTOPRAZOLE 40 MG TABLET PO SCH (09:26)
[2023-01-10] MEDS: FERROUS SULFATE 325 MG TAB PO SCH (09:26)
[2023-01-10] MEDS: POTASSIUM CHLORIDE ER 20 MEQ TAB.ER PO SCH (09:27)
[2023-01-10] MEDS: LOSARTAN 25 MG TAB PO SCH (09:28)
[2023-01-10] MEDS: LORATADINE 10 MG TAB PO SCH (09:28)
[2023-01-10] MEDS: SODIUM CHLORIDE 0.9% 1,000 ML IV SCH ×2 (09:28→20:25)
[2023-01-10] MEDS: CYANOCOBALAMIN 500 MCG TAB PO SCH (09:28)
[2023-01-10] MEDS: ASPIRIN 81 MG PO SCH (09:28)
[2023-01-10] MEDS: HYDROcodone/APAP 10-325MG 1 EACH TAB PO PRN ×2 (13:03→20:27)
[2023-01-10] MEDS: FLUTICASONE 220 MCG INHALER INHALATION SCH (15:14)
[2023-01-10] MEDS: ALBUTEROL NEBULIZED 2.5 MG/3 ML INHALATION PRN (20:02)
[2023-01-10] MEDS: PERAMPANEL 10 MG PO SCH (20:23)
[2023-01-10] MEDS: ATORVASTATIN 10 MG TAB PO SCH (20:24)
[2023-01-10] MEDS: MONTELUKAST 10 MG TAB PO SCH (20:24)
[2023-01-11] MEDS: FLUTICASONE 220 MCG INHALER INHALATION SCH ×2 (00:42→15:50)
[2023-01-11] MEDS: LEVOTHYROXINE 100 MCG TAB PO SCH (05:54)
[2023-01-11] MEDS: BUDESONIDE 1 MG/2 ML NEBU INHALATION SCH (08:33)
[2023-01-11] MEDS ORDERED: ERGOCALCIFEROL 1,250 MCG (50,000 IU) CAPSULE PO SCH (09:00)
[2023-01-11] MEDS: CYANOCOBALAMIN 500 MCG TAB PO SCH (09:58)
[2023-01-11] MEDS: FERROUS SULFATE 325 MG TAB PO SCH (09:58)
[2023-01-11] MEDS: LOSARTAN 25 MG TAB PO SCH (09:58)
[2023-01-11] MEDS: POTASSIUM CHLORIDE ER 20 MEQ TAB.ER PO SCH (09:58)
[2023-01-11] MEDS: HYDROcodone/APAP 10-325MG 1 EACH TAB PO PRN (09:58)
[2023-01-11] MEDS: PANTOPRAZOLE 40 MG TABLET PO SCH (09:58)
[2023-01-11] MEDS: ASPIRIN 81 MG PO SCH (09:58)
[2023-01-11] MEDS: LORATADINE 10 MG TAB PO SCH (09:59)
[2023-01-11] MEDS: SODIUM CHLORIDE 0.9% 1,000 ML IV SCH (14:09)
[2023-01-11 15:17] VITALS: BP 135/82; PULSE 63; RESP 14; TEMP 98.3
[2023-01-11] MEDS ORDERED: NON FORMULARY DRUG (Alendronate Sodium [Fosamax] 70 MG Tablet) PO SCH (22:15)
--- NOTE | 2023-01-12 01:40 | PN ---
PROGRESS NOTE DATE OF SERVICE: 01/10/2023 SUBJECTIVE: A 62-year-old white female with weakness, multiple falls with UTI. Continue with PT/ OT. She has negative fracture around her eyes. She has bruising around her eyes. She is light-headed and dizzy. She appears dehydrated. Continue current treatments. Treat for UTI with IV Rocephin. OBJECTIVE: CARDIOVASCULAR: S1, S2. LUNGS: Clear. GI: Soft. NEUROLOGIC: Cranial nerves intact. PSYCH: Fair mood and affect. ASSESSMENT: 1. Weakness. 2. Multiple falls. 3. Urinary tract infection. PLAN: Treat with IV Rocephin. PT/OT. Possible discharge home or to rehab center. MMODL / IJN: [id number] /
== END 2023-01-11 16:30 | disposition home or self-care (01) ==
LOC: EC 11:13 → 6NMEDSUR 17:52
PROVIDERS: ADMIT Family Medicine; ATTEND Family Medicine
DX: N39.0 Urinary tract infection, site not specified (principal); R53.1 Weakness; R29.6 Repeated falls; I95.1 Orthostatic hypotension; S00.12XA Contusion of left eyelid and periocular area, initial encounter; S00.11XA Contusion of right eyelid and periocular area, initial encounter; M25.78 Osteophyte, vertebrae; M48.00 Spinal stenosis, site unspecified; S03.01XA Dislocation of jaw, right side, initial encounter; R26.81 Unsteadiness on feet; M50.30 Other cervical disc degeneration, unspecified cervical region; M51.36 Other intervertebral disc degeneration, lumbar region
CPT/HCPCS: 96361 ×3; 96374; 99285; 36415; 94640 ×4; 94760 ×2; 93005; 97162; 80053; 83735; 84484; 85025; 81001; 87086; 72125; 70486; 70450; G0378 ×4; J2405; J0696 ×3

== ENCOUNTER 2023-01-25 00:34 | Inpatient (IN) | payer MEDICARE, OTHER ==
[2023-01-25 01:06] LABS: Basophils % (A) 0 %; Eosinophils # (A) 0.1 k/uL (0-0.7); Eosinophils % (A) 2 %; HCT 34.7 % (34.0-46.0); HGB 11.7 gm/dL (11.4-16.0); Lymphocytes # (A) 2.2 k/uL (1.0-4.8); Lymphocytes % (A) 32 %; MCH 32.1 pg (25.0-35.0); MCHC 33.8 g/dL (31.0-37.0); MCV 95.2 fL (80.0-100.0); Mean Platelet Volume 8.3; Monocytes # (A) 0.4 k/uL (0-1.0); Monocytes % (A) 6 %; Neutrophils # (A) 4.1 k/uL (1.3-7.7); Neutrophils % (A) 59 %; Platelet Count 203 k/uL (150-450); RBC 3.65 m/uL (3.80-5.40); RDW 13.2 % (11.5-15.5); WBC 7.1 k/uL (3.8-10.6)
[2023-01-25 01:24] LABS: ALT 11 U/L (4-34); AST 20 U/L (14-36); African American GFR (CKD) >90 (>60 ml/min/1.73 sqM); Albumin 3.7 g/dL (3.5-5.0); Alkaline Phosphatase 59 U/L (38-126); Anion Gap 7 mmol/L; Blood Urea Nitrogen 11 mg/dL (7-17); Calcium 8.9 mg/dL (8.4-10.2); Carbon Dioxide 30 mmol/L (22-30); Chloride 104 mmol/L (98-107); Glucose 85 mg/dL (74-99); Non-African American GFR(CKD) >90 (>60 ml/min/1.73 sqM); Potassium 3.3 mmol/L (3.5-5.1); Sodium 141 mmol/L (137-145); Total Bilirubin 0.3 mg/dL (0.2-1.3); Total Protein 6.3 g/dL (6.3-8.2)
--- NOTE | 2023-01-25 03:17 | CT ---
EXAM: CT Head Without Intravenous Contrast CLINICAL HISTORY: ITS.REASON CT Reason: Altered mental status TECHNIQUE: Axial computed tomography images of the head/brain without intravenous contrast. CTDI is 58.9 mGy and DLP is 1342.3 mGy-cm. This CT exam was performed using one or more of the following dose reduction techniques: automated exposure control, adjustment of the mA and/or kV according to patient size, and/or use of iterative reconstruction technique. COMPARISON: No relevant prior studies available. FINDINGS: Brain: No hemorrhage or mass effect. Ventricles: No hydrocephalus. Bones/joints: Unremarkable. Soft tissues: Unremarkable. Sinuses: No air fluid level. Mastoid air cells: Clear. IMPRESSION: No acute hemorrhage, hydrocephalus, or mass effect.
--- NOTE | 2023-01-25 03:29 | XR ---
EXAM: XR Chest, 2 Views CLINICAL HISTORY: ITS.REASON XR Reason: altered mental status TECHNIQUE: Frontal and lateral views of the chest. COMPARISON: No relevant prior studies available. FINDINGS: Lungs: No consolidation or mass. Pleural space: No effusion. Heart: No cardiomegaly. Bones/joints: No acute findings. IMPRESSION: No acute cardiopulmonary process.
[2023-01-25 05:09] LABS: Glucose,Whole Blood 86 mg/dL (70-110)
[2023-01-25] MEDS ORDERED: NALOXONE 0.4 MG/ML 1 ML VIAL IV PRN (07:55)
--- NOTE | 2023-01-25 08:03 | ED ---
Altered Mental Status HPI - General Chief Complaint: Altered Mental Status Stated Complaint: confusion Time Seen by Provider: 01/25/23 00:52 Source: EMS Mode of arrival: EMS Limitations: altered mental status - History of Present Illness Initial Comments: Patient is 62-year-old woman with history of multiple recent falls and brought to have evaluation. She has had similar presentation this number times, and on the last episode. Consider placement but apparently patient had talked him into going home. The patient had some falls, brought back in to have evaluation. She denies injury. She states she falls because she has poor balance and weakness. She denies headache, change in vision, speech or swallowing. No focal weakness. MD Complaint: altered mental status -: days(s) Severity: moderate Context: history of similar presentation Associated Symptoms: weakness - Related Data Home Medications Medication Instructions Recorded Confirmed Aspirin EC [Ecotrin Low Dose] 81 mg PO DAILY 02/22/19 01/25/23 Pantoprazole [Protonix] 40 mg PO DAILY 11/10/19 01/25/23 Albuterol Inhaler [Ventolin Hfa 2 puff INHALATION RT-Q4H PRN 09/14/20 01/25/23 Inhaler] Montelukast [Singulair] 10 mg PO HS 09/14/20 01/25/23 levETIRAcetam [Keppra] 1,500 mg PO BID 09/14/20 01/25/23 Ferrous Sulfate [Iron] 325 mg PO DAILY 02/18/22 01/25/23 Levothyroxine Sodium 100 mcg PO DAILY 02/18/22 01/25/23 ALPRAZolam [Xanax] 0.25 mg PO Q12H PRN 05/19/22 01/25/23 Cyanocobalamin (Vitamin B-12) 1,000 mcg PO DAILY 05/19/22 01/25/23 [Vitamin B-12] Ergocalciferol [Vitamin D2 (1250 1,250 mcg PO BUCKLEY 05/19/22 01/25/23 Mcg = 37746 Iu)] Loratadine [Claritin] 10 mg PO DAILY 05/19/22 01/25/23 Losartan [Cozaar] 25 mg PO DAILY 05/19/22 01/25/23 Lovastatin [Mevacor] 40 mg PO HS 05/19/22 01/25/23 Alendronate Sodium [Fosamax] 70 mg PO BUCKLEY 08/06/22 01/25/23 Fluticasone Propionate 220 Mcg 2 puff INHALATION RT-BID 08/06/22 01/25/23 [Flovent 220 Mcg Inhaler] HYDROcodone/APAP 10-325MG [[place] 1 tab PO QID PRN 08/06/22 01/25/23 10-325] Perampanel [Fycompa] 10 mg PO HS 08/06/22 01/25/23 Potassium Chloride 20 meq PO DAILY 08/06/22 01/25/23 Budesonide [Pulmicort] 1 mg INHALATION RT-BID 12/19/22 01/25/23 Yupelri 175mcg/3ml 175 mcg INHALATION DIRECTED 01/25/23 01/25/23 Previous Rx's Medication Instructions Recorded Ipratropium-Albuterol Nebulize 3 ml INHALATION RT-QID 30 Days 01/27/23 [Duoneb 0.5 mg-3 mg/3 ml Soln] #120 each Allergies Allergy/AdvReac Type Severity Reaction Status Date / Time adhesive Allergy Rash/Hives Verified 01/25/23 12:35 bee venom protein (honey bee) Allergy Anaphylaxis Verified 01/25/23 12:35 buspirone [From BuSpar] Allergy Itching Verified 01/25/23 12:35 divalproex sodium Allergy Swelling Verified 01/25/23 12:35 [From Depakote] ibuprofen [From Motrin] Allergy Rash/Hives Verified 01/25/23 12:35 latex Allergy Rash/Hives Verified 01/25/23 12:35 Penicillins Allergy Rash/Hives Verified 01/25/23 12:35 topiramate [From Topamax] Allergy Swelling Verified 01/25/23 12:35 Review of Systems ROS Statement: Those systems with pertinent positive or pertinent negative responses have been documented in the HPI. ROS Other: All systems not noted in ROS Statement are negative. Constitutional: Reports: weakness. Denies: fever, chills Eyes: Denies: vision change Respiratory: Denies: cough, dyspnea Cardiovascular: Denies: chest pain, palpitations, orthopnea, syncope Gastrointestinal: Denies: abdominal pain, vomiting, diarrhea Genitourinary: Denies: dysuria, hematuria Musculoskeletal: Denies: back pain Skin: Denies: rash Neurological: Denies: headache, weakness, numbness Past Medical History Past Medical History: Asthma, Chest Pain / Angina, Heart Failure, GERD/Reflux, Hyperlipidemia, Hypertension, Osteoarthritis (OA), Pneumonia, Seizure Disorder, Skin Disorder, Sleep Apnea/CPAP/BIPAP, Thyroid Disorder Additional Past Medical History / Comment(s): Pinched nerves in back and neck, uses cane. Last seizure 4 weeks ago. "Blood pressure and heart rate go up and down all the time." Developementally disabled. Restless leg syndrome, neck and back pain with pain down bilateral legs, leg weakness, occasional numbness and tingling to bilateral hands and feet. CPAP use. Abdominal pain, diarrhea right after eating. Hx falls, persistant itching-cause unknown. Sees pain specialist for chronic pain. Hx pneumonia dehydration and seizure Dec 2021. Swelling in legs. History of Any Multi-Drug Resistant Organisms: None Reported Past Surgical History: Adenoidectomy, Bariatric Surgery, Cholecystectomy, Heart Catheterization, Hernia Repair, Hysterectomy, Tonsillectomy Additional Past Surgical History / Comment(s): Cervical surgery/cage, sleeve gastrectomy 12-01-18, LOOP RECORDER 05/28/2020. Past Anesthesia/Blood Transfusion Reactions: Previous Problems w/ Anesthesia Additional Past Anesthesia/Blood Transfusion Reaction / Comment(s): "Slow to wake up". States "was told by my sister's boyfriend that I had trouble breathing and almost during my neck surgery". No hx blood transfusion. Date of Last Stent Placement:: 06/03/2014 Type of Cardiac Device: Unknown Device Placement Date:: 05/28/2020 Past Psychological History: Depression Smoking Status: Never smoker Past Alcohol Use History: None Reported Past Drug Use History: None Reported - Past Family History Father Family Medical History: Cancer Additional Family Medical History / Comment(s): Stomach cancer. Sister(s) Family Medical History: Cancer Additional Family Medical History / Comment(s): Stomach cancer. Mother Family Medical History: No Reported History Additional Family Medical History / Comment(s): . General Exam Limitations: altered mental status General appearance: alert, in no apparent distress Head exam: Present: atraumatic, normocephalic Eye exam: Present: normal appearance. Absent: scleral icterus, conjunctival injection ENT exam: Present: normal oropharynx Neck exam: Present: normal inspection, full ROM. Absent: tenderness, meningismus Respiratory exam: Present: normal lung sounds bilaterally. Absent: respiratory distress, wheezes, rales, rhonchi, stridor, chest wall tenderness Cardiovascular Exam: Present: regular rate, normal rhythm, normal heart sounds. Absent: systolic murmur, diastolic murmur, rubs, gallop GI/Abdominal exam: Present: soft. Absent: distended, tenderness, guarding, rebound, rigid, mass Extremities exam: Present: normal inspection, normal capillary refill. Absent: pedal edema, calf tenderness Back exam: Present: normal inspection. Absent: CVA tenderness (R), CVA tenderness (L), vertebral tenderness Neurological exam: Present: alert, oriented X3 (Patient is oriented to person and place but could not state the date), CN II-XII intact. Absent: motor senso ry deficit Skin exam: Present: warm, dry, intact, normal color, other (Patient does have multiple contusions to the extremities and some older contusions to the face.). Absent: rash Course Vital Signs 01/25/23 01/25/23 01/25/23 00:37 01:07 02:00 Temperature 98.2 F 97.7 F Pulse Rate 61 42 L Pulse Rate [ 51 L Right Pulse Oximetery] Respiratory 16 18 15 Rate Blood Pressure 140/91 127/78 O2 Sat by Pulse 97 94 L 100 Oximetry 01/25/23 01/25/23 01/25/23 04:00 08:15 09:52 Temperature 98.2 F 98.1 F Pulse Rate 47 L 68 52 L Pulse Rate [ Right Pulse Oximetery] Respiratory 16 18 17 Rate Blood Pressure 119/70 145/84 138/78 O2 Sat by Pulse 98 100 99 Oximetry Medical Decision Making - Medical Decision Making The patient had chest x-ray which I interpreted as not showing acute infiltrate, congestive heart failure, thorax. The patient had computed tomography scan of the brain which I interpreted as not showing any acute bony injury or acute intracranial hemorrhage. Was pt. sent in by a medical professional or institution (, PA, DIVISION SERVICE MANAGER, urgent care, hospital, or fpc...) When possible be specific @ -[No] Did you speak to anyone other than the patient for history (EMS, parent, family, police, friend...)? What history was obtained from this source @ -[EMS did give history Did you review nursing and triage notes (agree or disagree)? Why? @ -[I reviewed and agree with nursing and triage notes] Were old charts reviewed (outside hosp., previous admission, EMS record, old EKG, old radiological studies, urgent care reports/EKG's, fpc records)? Report findings @ -[Yes old charts were reviewed Differential Diagnosis (chest pain, altered mental status, abdominal pain women, abdominal pain men, vaginal bleeding, weakness, fever, dyspnea, syncope, headache, dizziness, GI bleed, back pain, seizure, CVA, palpatations, mental health, musculoskeletal)? @ -[Differential Altered Mental Status: Hypoglycemia, DKA, hypercapnia, ETOH, overdose, CO poisoning, trauma, myxedema coma, HTN encephalopathy, infection, encephalitis, psychosis, intercranial hemorrhage, hepatic encephalopathy, meningitis, CVA, this is not meant to be an all-inclusive list EKG interpreted by me (3pts min.). @ -[I interpreted As above] X-rays interpreted by me (1pt min.). @ -[I interpreted as above CT interpreted by me (1pt min.). @ -[I interpreted as above U/S interpreted by me (1pt. min.). @ -[None done] What testing was considered but not performed or refused? (CT, X-rays, U/S, labs)? Why? @ -[None] What meds were considered but not given or refused? Why? @ -[None] Did you discuss the management of the patient with other professionals (professionals i.e. , PA, DIVISION SERVICE MANAGER, lab, RT, psych nurse, social media marketer, student services counselor, teacher, certified juvenile probation officer, registered nurse hh case manager)? Give summary @ -[Case discussed with the admitting physician Was smoking cessation discussed for >3mins.? @ -[No] Was critical care preformed (if so, how long)? @ -[No] Were there social determinants of health that impacted care today? How? (Homelessness, low income, unemployed, alcoholism, drug addiction, transportation, low edu. Level, literacy, decrease access to med. care, senior living, rehab)? @ -[No] Was there de-escalation of care discussed even if they declined (Discuss DNR or withdrawal of care, Hospice)? DNR status @ -[No] What co-morbidities impacted this encounter? (DM, HTN, Smoking, COPD, CAD, Can cer, CVA, ARF, Chemo, Hep., AIDS, mental health diagnosis, sleep apnea, morbid obesity)? @ -[None] Was patient admitted / discharged? Hospital course, mention meds given and route, prescriptions, significant lab abnormalities, going to OR and other pertinent info. @ -[This patient is 62-year-old woman here for multiple recent falls, general ized weakness, altered mental status. Review of the previous admission did reveal that and strongly considered admitting the patient to have placement at extended care facility. This was discussed with patient and at this point she is considering that she is still having falls and states she is too weak to get around. Case is discussed with admitting physician Undiagnosed new problem with uncertain prognosis? @ -[No] Drug Therapy requiring intensive monitoring for toxicity (Heparin, Nitro, Insulin, Cardizem)? @ -[No] Were any procedures done? @ -[No] Diagnosis/symptom? @ -[Multiple contusions Acute altered mental status Generalized weakness and fatigue with multiple recent falls Acute, or Chronic, or Acute on Chronic? @ -[Acute on chronic Uncomplicated (without systemic symptoms) or Complicated (systemic symptoms)? @ -[Uncomplicated Side effects of treatment? @ -[No] Exacerbation, Progression, or Severe Exacerbation? @ -[No] Poses a threat to life or bodily function? How? (Chest pain, [place], [place], pneumonia, PE, COPD, DKA, ARF, appy, cholecystitis, CVA, Diverticulitis, Homicidal, Suicidal, threat to staff... and all critical care pts) @ -[Uncertain at this point - Lab Data Result diagrams: 01/26/23 06:33 01/26/23 06:33 Lab Results 01/25/23 01/25/23 01/25/23 Range/Units 00:42 00:42 00:53 WBC 7.1 (3.8-10.6) k/uL RBC 3.65 L (3.80-5.40) m/uL Hgb 11.7 (11.4-16.0) gm/dL Hct 34.7 (34.0-46.0) % MCV 95.2 (80.0-100.0) fL MCH 32.1 (25.0-35.0) pg MCHC 33.8 (31.0-37.0) g/dL RDW 13.2 (11.5-15.5) % Plt Count 203 (150-450) k/uL MPV 8.3 Neutrophils % 59 % Lymphocytes % 32 % Monocytes % 6 % Eosinophils % 2 % Basophils % 0 % Neutrophils # 4.1 (1.3-7.7) k/uL Lymphocytes # 2.2 (1.0-4.8) k/uL Monocytes # 0.4 (0-1.0) k/uL Eosinophils # 0.1 (0-0.7) k/uL Basophils # 0.0 (0-0.2) k/uL PT 11.0 (9.0-12.0) sec INR 1.0 (<1.2) APTT 25.0 (22.0-30.0) sec Sodium 141 (137-145) mmol/L Potassium 3.3 L (3.5-5.1) mmol/L Chloride 104 (98-107) mmol/L Carbon Dioxide 30 (22-30) mmol/L Anion Gap 7 mmol/L BUN 11 (7-17) mg/dL Creatinine 0.62 (0.52-1.04) mg/dL Est GFR (CKD-EPI)AfAm >90 (>60 ml/min/1.73 sqM) Est GFR (CKD-EPI)NonAf >90 (>60 ml/min/1.73 sqM) Glucose 85 (74-99) mg/dL POC Glucose (mg/dL) (70-110) mg/dL POC Glu [place] ID Calcium 8.9 (8.4-10.2) mg/dL Total Bilirubin 0.3 (0.2-1.3) mg/dL AST 20 (14-36) U/L ALT 11 (4-34) U/L Alkaline Phosphatase 59 (38-126) U/L Ammonia (<30) umol/L Troponin I (0.000-0.034) ng/mL Total Protein 6.3 (6.3-8.2) g/dL Albumin 3.7 (3.5-5.0) g/dL Cortisol (3.1-22.4) UG/DL 01/25/23 01/25/23 01/25/23 Range/Units 00:53 00:53 00:53 WBC (3.8-10.6) k/uL RBC (3.80-5.40) m/uL Hgb (11.4-16.0) gm/dL Hct (34.0-46.0) % MCV (80.0-100.0) fL MCH (25.0-35.0) pg MCHC (31.0-37.0) g/dL RDW (11.5-15.5) % Plt Count (150-450) k/uL MPV Neutrophils % % Lymphocytes % % Monocytes % % Eosinophils % % Basophils % % Neutrophils # (1.3-7.7) k/uL Lymphocytes # (1.0-4.8) k/uL Monocytes # (0-1.0) k/uL Eosinophils # (0-0.7) k/uL Basophils # (0-0.2) k/uL PT (9.0-12.0) sec INR (<1.2) APTT (22.0-30.0) sec Sodium (137-145) mmol/L Potassium (3.5-5.1) mmol/L Chloride (98-107) mmol/L Carbon Dioxide (22-30) mmol/L Anion Gap mmol/L BUN (7-17) mg/dL Creatinine (0.52-1.04) mg/dL Est GFR (CKD-EPI)AfAm (>60 ml/min/1.73 sqM) Est GFR (CKD-EPI)NonAf (>60 ml/min/1.73 sqM) Glucose (74-99) mg/dL POC Glucose (mg/dL) (70-110) mg/dL POC Glu [place] ID Calcium (8.4-10.2) mg/dL Total Bilirubin (0.2-1.3) mg/dL AST (14-36) U/L ALT (4-34) U/L Alkaline Phosphatase (38-126) U/L Ammonia <9 (<30) umol/L Troponin I <0.012 (0.000-0.034) ng/mL Total Protein (6.3-8.2) g/dL Albumin (3.5-5.0) g/dL Cortisol 3.0 L (3.1-22.4) UG/DL 01/25/23 Range/Units 05:08 WBC (3.8-10.6) k/uL RBC (3.80-5.40) m/uL Hgb (11.4-16.0) gm/dL Hct (34.0-46.0) % MCV (80.0-100.0) fL MCH (25.0-35.0) pg MCHC (31.0-37.0) g/dL RDW (11.5-15.5) % Plt Count (150-450) k/uL MPV Neutrophils % % Lymphocytes % % Monocytes % % Eosinophils % % Basophils % % Neutrophils # (1.3-7.7) k/uL Lymphocytes # (1.0-4.8) k/uL Monocytes # (0-1.0) k/uL Eosinophils # (0-0.7) k/uL Basophils # (0-0.2) k/uL PT (9.0-12.0) sec INR (<1.2) APTT (22.0-30.0) sec Sodium (137-145) mmol/L Potassium (3.5-5.1) mmol/L Chloride (98-107) mmol/L Carbon Dioxide (22-30) mmol/L Anion Gap mmol/L BUN (7-17) mg/dL Creatinine (0.52-1.04) mg/dL Est GFR (CKD-EPI)AfAm (>60 ml/min/1.73 sqM) Est GFR (CKD-EPI)NonAf (>60 ml/min/1.73 sqM) Glucose (74-99) mg/dL POC Glucose (mg/dL) 86 (70-110) mg/dL POC Glu [place] ID RemyEmperatriz Calcium (8.4-10.2) mg/dL Total Bilirubin (0.2-1.3) mg/dL AST (14-36) U/L ALT (4-34) U/L Alkaline Phosphatase (38-126) U/L Ammonia (<30) umol/L Troponin I (0.000-0.034) ng/mL Total Protein (6.3-8.2) g/dL Albumin (3.5-5.0) g/dL Cortisol (3.1-22.4) UG/DL - EKG Data -: EKG Interpreted by Me EKG shows normal: sinus rhythm, axis (Normal), intervals (Normal) Rate: bradycardia (Rate 54 bpm) Interpretation: LVH (Voltage criteria) Disposition Clinical Impression: Weakness, Morbid exogenous obesity, Altered mental status, Inability to walk, Multiple contusions Disposition: ADMITTED IP TO THIS HOSP Condition: Stable Is patient prescribed a controlled substance at d/c from ED?: No
[2023-01-25 08:50] LABS: Appearance,Urine Clear (Clear); Bilirubin,Urine Negative (Negative); Blood,Urine Negative (Negative); Color,Urine Colorless; Glucose,Urine (UA) Negative (Negative); Ketones,Urine Negative (Negative); Leukocyte Esterase,Urine Negative (Negative); Nitrite,Urine Negative (Negative); PH, Urine 6.5 (5.0-8.0); Protein,Urine Negative (Negative); Specific Gravity,Urine 1.011 (1.001-1.035); Urobilinogen,Urine <2.0 mg/dL (<2.0)
[2023-01-25 09:33] LABS: Amphetamine Screen,Urine Not Detected (NotDetected); Barbiturate Screen,Urine Not Detected (NotDetected); Benzodiazepines Screen,Urine Not Detected (NotDetected); Cocaine Screen,Urine Not Detected (NotDetected); Methadone Screen, Urine Not Detected (NotDetected); Opiate Screen,Urine Detected (NotDetected); Oxycodone Screen, Urine Not Detected (NotDetected); Phencyclidine Screen,Urine Not Detected (NotDetected); Tricyclic Antidepressant,Urine Not Detected (NotDetected); Urn Cannabinoid Scrn Not Detected (NotDetected)
[2023-01-25] MEDS ORDERED: ALPRAZolam 0.25 MG TAB PO PRN (10:49)
[2023-01-25] MEDS ORDERED: NON FORMULARY DRUG (Alendronate Sodium [Fosamax] 70 MG Tablet) PO SCH (11:00)
[2023-01-25] MEDS: IPRATROPIUM-ALBUTEROL 3 ML NEB INHALATION SCH ×3 (11:09→19:44)
[2023-01-25] MEDS ORDERED: Potassium Replacement Protocol 1 EACH MISC MISCELLANE PRN (11:42)
[2023-01-25] MEDS ORDERED: ERGOCALCIFEROL 1,250 MCG (50,000 IU) CAPSULE PO SCH (12:00)
[2023-01-25] MEDS: POTASSIUM CHLORIDE ER 20 MEQ TAB.ER PO SCH ×2 (12:52→13:58)
[2023-01-25] MEDS: BUDESONIDE 1 MG/2 ML NEBU INHALATION SCH (19:44)
[2023-01-25] MEDS: MONTELUKAST 10 MG TAB PO SCH (20:09)
[2023-01-25] MEDS: ATORVASTATIN 10 MG TAB PO SCH (20:09)
--- NOTE | 2023-01-25 20:41 | HP ---
HISTORY AND PHYSICAL SUBJECTIVE: This 62-year-old white female came to the hospital for generalized weakness. She wants to be placed into a m[facility], had some falls, has poor transportation, poor living conditions. Apparently not sure if she is compliant with her medications. She denies any injuries or falls or head trauma or history of seizures in the past. HOME MEDICINES: 1. Aspirin 81 daily. 2. Protonix 40 daily. 3. Albuterol inhaler 2 puffs q.4 hours p.r.n. 4. Singulair 10 daily. 5. Keppra 1500 b.i.d. 6. Antivert 25 daily. 7. Iron sulfate 325 daily. 8. Levothyroxine 100 mcg daily. 9. Xanax 0.25 q.12 p.r.n. 10.Cozaar 25 daily. 11.Claritin 10 daily. 12.Mevacor 40 daily. 13.Fosamax 70 mg weekly. 14.Fycompa 10 mg at night. 15.Potassium chloride 20 mEq daily. 16.Pulmicort 0.5 b.i.d. ALLERGIES: Please see further orders. REVIEW OF SYSTEMS: A 14-point review of systems, please see further orders. PAST MEDICAL HISTORY: Asthma, chest pain, angina, heart failure, GERD, dyslipidemia, hypertension, osteoarthritis, pneumonia, seizures, skin disorder, sleep apnea, thyroid disorder, on BiPAP. FAMILY HISTORY: Sister with cancer of the stomach. PHYSICAL EXAMINATION: VITAL SIGNS: Temperature 98.2, pulse 47 to 62, respiratory rate 16 to 15, O2 97 to 100, blood pressure is 119 to 140 over 70s to 91. CARDIOVASCULAR: S1, S2. LUNGS: Wheezes at the bases. HEENT: Ophthalmologic, pupils equal, round, reactive to light and accommodation. BACK: Nontender. NEUROLOGIC: Cranial nerves intact. SKIN: Fair mood and affect. LABORATORY DATA: Potassium 3.3, sodium was 141, hemoglobin 11.7, white count 7.1. Troponins negative. Ammonia is negative. ASSESSMENT AND PLAN: Frequent falls, history of seizures, generalized weakness, possibly dehydration. Rehydrate. Replace electrolytes. Continue breathing treatments. Continue sleep apnea medicine, hypothyroid medicine. Prognosis guarded. Possible rehab placement. MMODL / IJN: [id number] /
[2023-01-25] MEDS: PERAMPANEL 10 MG PO SCH (23:11)
[2023-01-26] MEDS: PANTOPRAZOLE 40 MG TABLET PO SCH (06:39)
[2023-01-26] MEDS: LEVOTHYROXINE 100 MCG TAB PO SCH (06:39)
[2023-01-26] MEDS: BUDESONIDE 1 MG/2 ML NEBU INHALATION SCH ×2 (07:55→21:47)
[2023-01-26] MEDS: IPRATROPIUM-ALBUTEROL 3 ML NEB INHALATION SCH ×4 (07:55→21:47)
[2023-01-26] MEDS: ASPIRIN 81 MG PO SCH (08:13)
[2023-01-26] MEDS: CYANOCOBALAMIN 500 MCG TAB PO SCH (08:13)
[2023-01-26] MEDS: LOSARTAN 25 MG TAB PO SCH (08:13)
[2023-01-26] MEDS: LORATADINE 10 MG TAB PO SCH (08:13)
[2023-01-26] MEDS: FERROUS SULFATE 325 MG TAB PO SCH (08:13)
[2023-01-26] MEDS: POTASSIUM CHLORIDE ER 20 MEQ TAB.ER PO SCH (08:14)
[2023-01-26] MEDS: HYDROcodone/APAP 5-325MG 1 EACH TAB PO PRN ×3 (10:37→21:19)
[2023-01-26 10:59] LABS: Basophils # (A) 0.02 X 10*3/uL (0.00-0.10); Basophils % (A) 0.4 %; Eosinophils # (A) 0.05 X 10*3/uL (0.04-0.35); HGB 11.2 d/dL (12.0-15.0); Lymphocytes # (A) 1.25 X 10*3/uL (0.90-5.00); Lymphocytes % (A) 25.2 %; MCH 31.3 pg (27.0-32.0); MCHC 32.9 d/dL (32.0-37.0); Mean Platelet Volume 10.9 FL (9.5-12.2); Monocytes # (A) 0.37 X 10*3/uL (0.20-1.00); Monocytes % (A) 7.5 %; NRBC Per 100 WBC 0 X 10*3/uL (0.00-0.01); Neutrophils # (A) 3.26 X 10*3/uL (1.80-7.70); Neutrophils % (A) 65.7 %; Platelet Count 212 X 10*3/uL (140-440); RBC 3.58 X 10*6/uL (4.10-5.20); RDW 12.9 % (11.5-14.5); WBC 4.96 X 10*3/uL (4.50-10.00)
[2023-01-26 11:37] LABS: ALT 8 U/L (8-44); AST 11 U/L (13-35); Albumin 3.9 d/dL (3.8-4.9); Albumin/Globulin Ratio 1.95 Ratio (1.60-3.17); Alkaline Phosphatase 57 U/L (41-126); BUN/Creat Ratio 20.25 Ratio (12.00-20.00); Blood Urea Nitrogen 8.1 mg/dL (9.0-27.0); Calcium 9.1 mg/dL (8.7-10.3); Carbon Dioxide 26.5 mmol/L (21.6-31.8); Chloride 109 mmol/L (96-109); Glucose 96 mg/dL (70-110); Potassium 3.8 mmol/L (3.5-5.5); Sodium 144 mmol/L (135-145); Total Bilirubin 0.4 mg/dL (0.3-1.2); Total Protein 5.9 d/dL (6.2-8.2)
[2023-01-26] MEDS: ATORVASTATIN 10 MG TAB PO SCH (21:15)
[2023-01-26] MEDS: MONTELUKAST 10 MG TAB PO SCH (21:15)
[2023-01-26] MEDS: PERAMPANEL 10 MG PO SCH (22:04)
[2023-01-27] MEDS: PANTOPRAZOLE 40 MG TABLET PO SCH (06:31)
[2023-01-27] MEDS: HYDROcodone/APAP 5-325MG 1 EACH TAB PO PRN ×3 (06:31→22:18)
[2023-01-27] MEDS: LEVOTHYROXINE 100 MCG TAB PO SCH (06:31)
[2023-01-27] MEDS: POTASSIUM CHLORIDE ER 20 MEQ TAB.ER PO SCH (08:13)
[2023-01-27] MEDS: LOSARTAN 25 MG TAB PO SCH (08:13)
[2023-01-27] MEDS: ASPIRIN 81 MG PO SCH (08:13)
[2023-01-27] MEDS: FERROUS SULFATE 325 MG TAB PO SCH (08:13)
[2023-01-27] MEDS: LORATADINE 10 MG TAB PO SCH (08:13)
[2023-01-27] MEDS: CYANOCOBALAMIN 500 MCG TAB PO SCH (08:13)
[2023-01-27] MEDS: IPRATROPIUM-ALBUTEROL 3 ML NEB INHALATION SCH ×4 (08:55→21:46)
[2023-01-27] MEDS: BUDESONIDE 1 MG/2 ML NEBU INHALATION SCH ×2 (08:55→21:46)
--- NOTE | 2023-01-27 13:20 | CDI ---
Documentation Clarification Form Date: From: Jennifer Newby Phone: [phone] Admit Date: 01/25/2023 07:55:00 AM Patient Name: Poly Casarez Visit Number: [id number] Discharge Date: ATTENTION: The Clinical Documentation Specialists (CDI) and [facility] Coding Staff appreciate your assistance in clarifying documentation. Please respond to the clarification below the line at the bottom and electronically sign. The CDI & [facility] Coding staff will review the response and follow-up if needed. Please note: Queries are made part of the Legal Health Record. If you have any questions, please contact the author of this message via ITS. Dr. Júnior Hancock Your patient has the documented symptom of weakness in the Medical H&P on 01/25. Additional clarification regarding the etiology/cause of this symptom is requested. History/Risk Factors: "This 62-year-old white female came to the hospital for generalized weakness. She wants to be placed into a longterm, had some falls, has poor transportation, poor living conditions." - Per Medical H&P on 01/25 Clinical Indicators: "Frequent falls, history of seizures, generalized weakness, possibly dehydration." - Per Medical H&P on 01/25 Treatment: Per Medical H&P on 01/25 "Rehydrate. Replace electrolytes. Possible rehab placement." Is there a corresponding diagnosis/etiology for this symptom of weakness? [ ] Age related physical debility [ ] Unable to determine [ ] Other, please specify MTDD
[2023-01-27] MEDS: PERAMPANEL 10 MG PO SCH (20:56)
[2023-01-27] MEDS: MONTELUKAST 10 MG TAB PO SCH (20:57)
[2023-01-27] MEDS: ATORVASTATIN 10 MG TAB PO SCH (20:57)
--- NOTE | 2023-01-27 23:56 | PN ---
PROGRESS NOTE SUBJECTIVE: A 62-year-old white female, multiple contusions due to falls. The patient is scheduled for PT, OTs tonight and possibly going home or to a [facility] tomorrow. OBJECTIVE: CARDIOVASCULAR: S1, S2. LUNGS: Clear. GI: Soft. PLAN: Continue with breathing treatments, home nebulizer treatments. Will be discharged home possibly tomorrow or to the rehab center. Prognosis guarded. Continue current treatments. MMODL / IJN: [id number] /
--- NOTE | 2023-01-28 00:53 | PN ---
PROGRESS NOTE DATE OF SERVICE: 01/26/2023 SUBJECTIVE: A 62-year-old white female. The patient is breathing better. No signs of seizures. Checking for orthostatic hypotension. OBJECTIVE: CARDIOVASCULAR: S1, S2. LUNGS: Clear. GI: Soft. HEMATOLOGY: Negative Homans. PSYCH: Fair mood and affect. ASSESSMENT: Confusion, altered mental status, generalized weakness. Continue PT, OT. In the next 24 to 48 hours possibly either go to rehab center depending on physical therapy, or go home. The patient is improving. The patient is set up for a nebulizer with breathing treatments prior to going home. MMODL / IJN: [id number] /
[2023-01-28] MEDS: PANTOPRAZOLE 40 MG TABLET PO SCH (06:15)
[2023-01-28] MEDS: LEVOTHYROXINE 100 MCG TAB PO SCH (06:15)
[2023-01-28] MEDS: HYDROcodone/APAP 5-325MG 1 EACH TAB PO PRN (06:18)
[2023-01-28] MEDS: ASPIRIN 81 MG PO SCH (08:58)
[2023-01-28] MEDS: FERROUS SULFATE 325 MG TAB PO SCH (08:59)
[2023-01-28] MEDS: CYANOCOBALAMIN 500 MCG TAB PO SCH (09:00)
[2023-01-28] MEDS: LORATADINE 10 MG TAB PO SCH (09:01)
[2023-01-28] MEDS: LOSARTAN 25 MG TAB PO SCH (09:01)
[2023-01-28] MEDS: POTASSIUM CHLORIDE ER 20 MEQ TAB.ER PO SCH (09:01)
[2023-01-28] MEDS: IPRATROPIUM-ALBUTEROL 3 ML NEB INHALATION SCH ×3 (09:07→16:41)
[2023-01-28] MEDS: BUDESONIDE 1 MG/2 ML NEBU INHALATION SCH (09:07)
[2023-01-28 16:16] VITALS: BP 126/78; PULSE 65; RESP 16; TEMP 98
--- NOTE | 2023-01-28 22:20 | PN ---
PROGRESS NOTE She has moderate persistent asthma requiring nebulizer. MMODL / IJN: [id number] /
--- NOTE | 2023-01-28 23:26 | DS ---
DISCHARGE SUMMARY She was discharged home on 01/28/2023. DISCHARGE DIAGNOSES: 1. Altered mental status. 2. Acute on chronic renal failure. 3. Morbid obesity. 4. Atypical chest pain. 5. Frequent falls. 6. Facial contusion. 7. History of seizures. 8. History of chronic obstructive pulmonary disease and asthma. DISCHARGE MEDICATIONS: 1. DuoNeb q.i.d. 2. Protonix 40 mg daily. 3. Singulair 10 mg daily. 4. Levothyroxine 100 mcg daily. 5. Xanax 0.25 q.12 p.r.n. 6. Cozaar 25 daily. 7. Fycompa 10 mg at night. 8. Herrick 10/325 q.i.d. 9. Fosamax 70 mg weekly. 10.Pulmicort 0.5 b.i.d. 11.Keppra 1500 b.i.d. 12.Iron 325 daily. 13.Mevacor 40 daily. 14.Claritin 10 daily. 15.Potassium chloride 20 mEq daily. 16.Yupelri daily 175 mcg. CONDITION: Stable. PROGNOSIS: Guarded. Ambulate as tolerated. HOSPITAL COURSE: The patient came to the hospital for frequent falls, generalized weakness, dehydration, COPD, asthma exacerbation. She was given steroids, breathing treatments, IV fluids. She was up ambulating down the hawk prior to discharge. No signs of seizures. Mentally, she appeared to be stable. She has family members see her every day. She has a home nurse. She will follow up with outpatient PT, OT and home nursing. She just now want to go to [facility] on the [address]. Condition stable. Prognosis guarded. Ambulate as tolerated. Please see further orders. I do think that she had to come in because she did not have her nebulizer working. She had no medicine for nebulizer, we are trying to get her one prior to discharge to prevent another admission. MMODL / IJN: [id number] /
== END 2023-01-28 17:07 | disposition home health service (06) | DRG 202 ==
LOC: EC 00:34 → 4SSUR 07:55
PROVIDERS: ADMIT Family Medicine; ATTEND Family Medicine
DX: J45.41 Moderate persistent asthma with (acute) exacerbation (principal); N17.9 Acute kidney failure, unspecified; E86.0 Dehydration; G25.81 Restless legs syndrome; N18.9 Chronic kidney disease, unspecified; R29.6 Repeated falls; M19.90 Unspecified osteoarthritis, unspecified site; K21.9 Gastro-esophageal reflux disease without esophagitis; S00.83XA Contusion of other part of head, initial encounter; E66.01 Morbid (severe) obesity due to excess calories; R26.89 Other abnormalities of gait and mobility; Z68.30 Body mass index [BMI] 30.0-30.9, adult; E78.5 Hyperlipidemia, unspecified; R07.89 Other chest pain; G40.909 Epilepsy, unspecified, not intractable, without status epilepticus; G47.30 Sleep apnea, unspecified; E03.9 Hypothyroidism, unspecified; I50.9 Heart failure, unspecified; J44.9 Chronic obstructive pulmonary disease, unspecified; Z79.82 Long term (current) use of aspirin; Z79.83 Long term (current) use of bisphosphonates; Z79.890 Hormone replacement therapy; Z79.899 Other long term (current) drug therapy; Z87.01 Personal history of pneumonia (recurrent); Z88.0 Allergy status to penicillin; Z91.040 Latex allergy status; Z91.030 Bee allergy status
CPT/HCPCS: 36415; 70450; 71046; 80053; 80306; 81003; 82140; 82533; 84484; 85025; 85610; 85730; 93005; 94640; 94660; 94760; 99285

== ENCOUNTER → 2023-02-23 | Outpatient (CLI) | payer MEDICARE, OTHER ==
[2023-02-23 10:37] VITALS: BP 154/85; PULSE 61; TEMP 97.7; BMI 28.1
--- NOTE | 2023-03-11 07:59 | P.HPBAR ---
Bariatric H&P - History & Physicial H&P Date: 02/23/23 History & Physicial: Visit/CC: F/U Patient initial contact: Initial weight: 137.438 kg Initial weight in pounds: 303.00 Height: 5 ft 7 in Initial BMI: 47.4 Last weight: Current weight: 81.647 kg Current weight in pounds: 180.00 Current BMI: 28.1 [place] body weight (based on NIH guidelines): 61.235 kg Excess body weight loss: 73.2% The patient is a 62 year-old F who presents for Bariatric Assessment. Patient resents today for bariatric follow-up. Patient has some minimal GERD. She is also complaining of a mass at her laparoscopic trocar site. Patient's mass has increased in size of the last several months. She's had some minimal GERD. Past Medical History Past Medical History: Asthma, Chest Pain / Angina, Heart Failure, GERD/Reflux, Hyperlipidemia, Hypertension, Osteoarthritis (OA), Pneumonia, Seizure Disorder, Skin Disorder, Sleep Apnea/CPAP/BIPAP, Thyroid Disorder Additional Past Medical History / Comment(s): Pinched nerves in back and neck, u ses cane. Last seizure 4 weeks ago. "Blood pressure and heart rate go up and down all the time." Developementally disabled. Restless leg syndrome, neck and back pain with pain down bilateral legs, leg weakness, occasional numbness and tingling to bilateral hands and feet. CPAP use. Abdominal pain, diarrhea right after eating. Hx falls, persistant itching-cause unknown. Sees pain specialist for chronic pain. Hx pneumonia dehydration and seizure Dec 2021. Swelling in legs. History of Any Multi-Drug Resistant Organisms: None Reported Past Surgical History: Adenoidectomy, Bariatric Surgery, Cholecystectomy, Heart Catheterization, Hernia Repair, Hysterectomy, Tonsillectomy Additional Past Surgical History / Comment(s): Cervical surgery/cage, sleeve gastrectomy 12-01-18, LOOP RECORDER 05/28/2020. Past Anesthesia/Blood Transfusion Reactions: Previous Problems w/ Anesthesia Additional Past Anesthesia/Blood Transfusion Reaction / Comm: "Slow to wake up". States "was told by my sister's boyfriend that I had trouble breathing and almost during my neck surgery". No hx blood transfusion. Date of Last Stent Placement:: 06/03/2014 Type of Cardiac Device: Unknown Device Placement Date:: 05/28/2020 Past Psychological History: Depression Additional Psychological History / Comment(s): pt developmentally disabled and has [employer] Public [employer]. States that she previously lived with her sister, but she and she now lives alone. Smoking Status: Never smoker Past Alcohol Use History: None Reported Additional Past Alcohol Use History / Comment(s): . Past Drug Use History: None Reported - Past Family History Father Family Medical History: Cancer Additional Family Medical History / Comment(s): Stomach cancer. Sister(s) Family Medical History: Cancer Additional Family Medical History / Comment(s): Stomach cancer. Mother Family Medical History: No Reported History Additional Family Medical History / Comment(s): . Surgical - Exam Vital Signs Temp Pulse BP 97.7 F 61 154/85 02/23/23 10:15 02/23/23 10:15 02/23/23 10:15 - General well developed, well nourished, no distress - Eyes PERRL - ENT normal pinna - Neck no masses - Respiratory normal expansion - Cardiovascular Rhythm: regular - Abdomen Patient is a 4 cm mass located at the umbilical trocar site. The patient appears have an incisional hernia. Abdomen: soft, non tender Bariatric Assessment & Plan Plan: Patient's weight loss and stable. She has minimal GERD. Patient will be followed. We will plan on repairing her incisional hernia at a later date. Bariatric Checklist Checklist: Plan: Checklist: EGD: 1. Hiatal hernia: 2. H. Pylori: HgbA1c: Vitamin D: Smoking: Never smoker Primary care physician referral: PCP Barbara Carter=, [employer] [facility] Psych[facility] clearance: Cardiology clearance: Sleep study: Diet journal: VTE risk score: VTE risk level: Rehab needs at discharge:
== END ==
LOC: BARWHC3 09:47
PROVIDERS: ATTEND Surgery
DX: K21.9 Gastro-esophageal reflux disease without esophagitis (principal); F32.A Depression, unspecified; E66.01 Morbid (severe) obesity due to excess calories; J45.909 Unspecified asthma, uncomplicated; I50.9 Heart failure, unspecified; E78.5 Hyperlipidemia, unspecified; Z88.0 Allergy status to penicillin; Z79.82 Long term (current) use of aspirin; Z91.048 Other nonmedicinal substance allergy status; Z91.030 Bee allergy status; Z79.811 Long term (current) use of aromatase inhibitors; Z88.1 Allergy status to other antibiotic agents; Z88.6 Allergy status to analgesic agent; Z91.040 Latex allergy status; Z79.1 Long term (current) use of non-steroidal anti-inflammatories (NSAID); Z79.891 Long term (current) use of opiate analgesic; Z79.52 Long term (current) use of systemic steroids
CPT/HCPCS: 99211

== ENCOUNTER 2023-03-27 08:19 | Day surgery (SDC) | payer MEDICARE, OTHER ==
[2023-03-27 08:59] VITALS: RESP 16; TEMP 98
[2023-03-27] MEDS ORDERED: diphenhydrAMINE 50 MG/ML 1 ML VIAL IVP STA (10:59)
[2023-03-27] MEDS ORDERED: methylPREDNISolone SOD SUCCI 125 MG/2 ML VIAL IV STA (11:00)
--- NOTE | 2023-03-27 11:39 | CT ---
EXAMINATION TYPE: CT cervical spine myelogram w con DATE OF EXAM: 03/27/2023 COMPARISON: 01/25/2021 HISTORY: cervicalgia CT DLP: 420.10 mGycm Automated exposure control for dose reduction was used. CONTRAST: Performed with IV Contrast, patient injected with 6 mL of Isovue M300. FINDINGS: At C2-C3 there is no disc herniation, canal stenosis or foraminal encroachment. At C3-C4 there is bilateral facet arthropathy and mild uncovertebral joint particularly. No disc eze iation or canal stenosis. At C4-C5 there is severe degenerative disc disease. There is posterior spondylosis with bilateral unc overtebral joint hypertrophy. There is a small spur extending paracentrally to the right which encroa ches upon the anterior margin of the spinal cord. Bilateral facet arthropathy. No significant foramin al encroachment. At C5-C6 Uncovertebral joint hypertrophy with mild bilateral foraminal encroachment. Stable small rig ht paracentral disc spurring with mild effacement of thecal sac but no spinal cord contact. No canal stenosis. At C6-C7 there is a large spur resulting in severe left foraminal encroachment. There is anterior com pression of the spinal cord which is similar to the prior exam. Uncovertebral joint hypertrophy on th e right contributes to mild foraminal encroachment. At C7-T1 there is slight anterior listhesis with no obvious disc herniation, canal stenosis, or ab inal encroachment. There is metallic structures in the soft tissues of the neck likely related to prior surgery. Subpleu ral 1 mm micronodule involving the left lung apex. There is findings compatible with previous surgery at levels C5-C7 with disc spacer and anterior fixa tion plate stable in alignment relative to prior exam. No definite lucency surrounding the surgical s crews to suggest malfunction. The plate appears to be immediately apposed to the anterior margin of t he vertebral segments and stable from prior exam. There is a well-corticated lucency along the posterior margin with incomplete fusion of the disc spac e similar to prior exam. There is a posterior paracentral spurring which results in severe left-sided foraminal encroachment and contacts the left margin of the spinal cord with mild flattening. IMPRESSION: 1. POSTSURGICAL CHANGES WITH THE LARGE OSTEOPHYTE\SPUR EXTENDING PARACENTRALLY TO THE LEFT C6-C7 WITH SEVERE LEFT-SIDED FORAMINAL. THERE IS ANTERIOR IMPRESSION ON THE SPINAL CORD WITH MILD MASS EFFECT. SIMILAR TO PRIOR EXAM. 2. RIGHT PARACENTRAL SPURRING AND DISC OSTEOPHYTE COMPLEX C4-C5.
--- NOTE | 2023-03-27 11:44 | FL ---
FLUOROSCOPIC GUIDED CERVICAL MYELOGRAM: CLINICAL HISTORY: Pain FINDINGS: The procedure was explained to the patient and the patient's guardian. The risks, complications, richie efits and alternatives were discussed and any questions were answered. Informed consent was obtained . Patient was placed supine on the ultrasound table and prepped and draped in the usual sterile fash ion. Utilizing a 22 gauge Chiba needle, a single pass was made at the L4-L5 level there is immediate retur n of CSF fluid. Proximal ICA cc of Isovue-300 M was injected. Spot image was obtained to confirm idea l placement of contrast. Contrast, then manipulated to the level of the cervical spine. Patient was s table throughout the procedure remains stable upon discharge from the department of radiology. CT sca n is pending. All elements of maximal barrier in sterile technique were utilized. 1 minute 7 seconds of fluoroscopy. No DAP to report. IMPRESSION: 1. Successful fluoroscopic-guided myelogram.
[2023-03-27 13:57] VITALS: BP 165/81; PULSE 56
== END 2023-03-27 13:49 | disposition home or self-care (01) ==
LOC: RADPROMAIN 08:19
PROVIDERS: ATTEND Orthopaedic Surgery
DX: M25.78 Osteophyte, vertebrae (principal); M50.321 Other cervical disc degeneration at C4-C5 level; M47.812 Spondylosis without myelopathy or radiculopathy, cervical region
CPT/HCPCS: 62302; 72126; Q9967

== ENCOUNTER 2023-04-13 09:50 | Emergency (ER) | payer MEDICARE ==
[2023-04-13 10:15] VITALS: TEMP 98.4
[2023-04-13 10:51] LABS: Glucose,Whole Blood 91 mg/dL (70-110)
[2023-04-13] MEDS ORDERED: SODIUM CHLORIDE 0.9% 1,000 ML IV STA (11:22)
[2023-04-13 12:03] LABS: Basophils % (A) 1 %; Eosinophils % (A) 1 %; HCT 37.7 % (34.0-46.0); HGB 12.4 gm/dL (11.4-16.0); Lymphocytes # (A) 1.2 k/uL (1.0-4.8); Lymphocytes % (A) 23 %; MCH 32.2 pg (25.0-35.0); MCHC 32.9 g/dL (31.0-37.0); MCV 97.9 fL (80.0-100.0); Monocytes # (A) 0.2 k/uL (0-1.0); Monocytes % (A) 5 %; Neutrophils # (A) 3.5 k/uL (1.3-7.7); Neutrophils % (A) 69 %; Platelet Count 197 k/uL (150-450); RBC 3.85 m/uL (3.80-5.40); RDW 12.8 % (11.5-15.5)
--- NOTE | 2023-04-13 12:05 | XR ---
EXAMINATION TYPE: XR chest 2V DATE OF EXAM: 04/13/2023 COMPARISON: 01/25/2023 TECHNIQUE: PA and lateral views submitted. HISTORY: Weakness FINDINGS: The lungs are clear and there is no pneumothorax, pleural effusion, or focal pneumonia. Heart size is enlarged but no overt failure. Osseous structures demonstrate hypertrophic and degenerative change s of the spine. Cardiac device in loop recorder are noted. Previous surgery overlying the cervical sp ine. Underlying COPD suspected. Diffuse osteopenia. IMPRESSION: 1. No acute process.
[2023-04-13 12:13] LABS: Partial Thromboplastin Time 25.4 sec (22.0-30.0); Prothrombin Time 11.3 sec (10.0-12.5)
[2023-04-13 12:20] LABS: ALT 10 U/L (4-34); AST 17 U/L (14-36); African American GFR (CKD) >90 (>60 ml/min/1.73 sqM); Albumin 3.5 g/dL (3.5-5.0); Alkaline Phosphatase 70 U/L (38-126); Anion Gap 4 mmol/L; Blood Urea Nitrogen 10 mg/dL (7-17); Calcium 9.1 mg/dL (8.4-10.2); Carbon Dioxide 30 mmol/L (22-30); Chloride 104 mmol/L (98-107); Glucose 93 mg/dL (74-99); Non-African American GFR(CKD) >90 (>60 ml/min/1.73 sqM); Potassium 3.8 mmol/L (3.5-5.1); Sodium 138 mmol/L (137-145); Total Bilirubin 0.5 mg/dL (0.2-1.3); Total Protein 5.8 g/dL (6.3-8.2)
--- NOTE | 2023-04-13 12:25 | ED ---
Weakness HPI - General Chief complaint: Altered Mental Status Stated complaint: Abnormal Labs Time Seen by Provider: 04/13/23 10:48 Source: patient, family, RN notes reviewed Mode of arrival: ambulatory Limitations: no limitations - History of Present Illness Initial comments: This is a 62-year-old female who presents to the emergency department for weak ness. According to the patient, her caregiver sent her in for rehab or long- term care placement. She lives alone and is having difficulty caring for herself. Her caregiver does not believe that it is safe for her to continue living there alone. It isn't entirely clear what the patient's baseline m entation is. She does report increasing fatigue related to her sleep apnea. Patient otherwise denies any complaints, but is a poor historian. MD Complaint: generalized weakness - Related Data Home Medications Medication Instructions Recorded Confirmed Aspirin EC [Ecotrin Low Dose] 81 mg PO DAILY 02/22/19 04/13/23 Pantoprazole [Protonix] 40 mg PO DAILY 11/10/19 04/13/23 Albuterol Inhaler [Ventolin Hfa 2 puff INHALATION RT-Q4H PRN 09/14/20 04/13/23 Inhaler] Montelukast [Singulair] 10 mg PO HS 09/14/20 04/13/23 levETIRAcetam [Keppra] 1,500 mg PO BID 09/14/20 04/13/23 Ferrous Sulfate [Iron] 325 mg PO DAILY 02/18/22 04/13/23 Levothyroxine Sodium 100 mcg PO DAILY 02/18/22 04/13/23 Cyanocobalamin (Vitamin B-12) 1,000 mcg PO DAILY 05/19/22 04/13/23 [Vitamin B-12] Ergocalciferol [Vitamin D2 (1250 1,250 mcg PO BUCKLEY 05/19/22 04/13/23 Mcg = 39887 Iu)] Loratadine [Claritin] 10 mg PO DAILY 05/19/22 04/13/23 Losartan [Cozaar] 25 mg PO DAILY 05/19/22 04/13/23 Lovastatin [Mevacor] 40 mg PO HS 05/19/22 04/13/23 Alendronate Sodium [Fosamax] 70 mg PO BUCKLEY 08/06/22 04/13/23 HYDROcodone/APAP 10-325MG [Cheney 1 tab PO QID PRN 08/06/22 04/13/23 10-325] Potassium Chloride 20 meq PO DAILY 08/06/22 04/13/23 EPINEPHrine (Auto Inject) [Epipen] 0.3 mg IM ONCE PRN 03/20/23 04/13/23 Fluticasone Propionate 220 Mcg 2 puff INHALATION RT-BID 03/20/23 04/13/23 [Flovent 220 Mcg Inhaler] Gabapentin 600 mg PO TID 03/20/23 04/13/23 Perampanel [Fycompa] 10 mg PO HS 03/20/23 04/13/23 Allergies Allergy/AdvReac Type Severity Reaction Status Date / Time adhesive Allergy Rash/Hives Verified 04/13/23 12:19 bee venom protein (honey bee) Allergy Anaphylaxis Verified 04/13/23 12:19 buspirone [From BuSpar] Allergy Itching Verified 04/13/23 12:19 divalproex sodium Allergy Swelling Verified 04/13/23 12:19 [From Depakote] ibuprofen [From Motrin] Allergy Rash/Hives Verified 04/13/23 12:19 Iodinated Contrast Media Allergy Rash/Hives Verified 04/13/23 12:19 latex Allergy Rash/Hives Verified 04/13/23 12:19 Penicillins Allergy Rash/Hives Verified 04/13/23 12:19 topiramate [From Topamax] Allergy Swelling Verified 04/13/23 12:19 Review of Systems ROS Statement: Those systems with pertinent positive or pertinent negative responses have been documented in the HPI. ROS Other: All systems not noted in ROS Statement are negative. Past Medical History Past Medical History: Asthma, Chest Pain / Angina, Heart Failure, GERD/Reflux, Hyperlipidemia, Hypertension, Osteoarthritis (OA), Pneumonia, Seizure Disorder, Skin Disorder, Sleep Apnea/CPAP/BIPAP, Thyroid Disorder Additional Past Medical History / Comment(s): Pinched nerves in back and neck, uses cane. Last seizure 4 weeks ago. "Blood pressure and heart rate go up and down all the time." Developementally disabled. Restless leg syndrome, neck and back pain with pain down bilateral legs, leg weakness, occasional numbness and tingling to bilateral hands and feet. CPAP use. Abdominal pain, diarrhea right after eating. Hx falls, persistant itching-cause unknown. Sees pain specialist for chronic pain. Hx pneumonia dehydration and seizure Dec 2021. Swelling in legs. History of Any Multi-Drug Resistant Organisms: None Reported Past Surgical History: Adenoidectomy, Bariatric Surgery, Cholecystectomy, Heart Catheterization, Hernia Repair, Hysterectomy, Tonsillectomy Additional Past Surgical History / Comment(s): Cervical surgery/cage, sleeve gastrectomy 12-01-18, LOOP RECORDER 05/28/2020. Past Anesthesia/Blood Transfusion Reactions: Previous Problems w/ Anesthesia Additional Past Anesthesia/Blood Transfusion Reaction / Comment(s): "Slow to wake up". States "was told by my sister's boyfriend that I had trouble breathing and almost during my neck surgery". No hx blood transfusion. Date of Last Stent Placement:: 06/03/2014 Type of Cardiac Device: Unknown Device Placement Date:: 05/28/2020 Past Psychological History: Depression Smoking Status: Never smoker Past Alcohol Use History: None Reported Past Drug Use History: None Reported - Past Family History Father Family Medical History: Cancer Additional Family Medical History / Comment(s): Stomach cancer. Sister(s) Family Medical History: Cancer Additional Family Medical History / Comment(s): Stomach cancer. Mother Family Medical History: No Reported History Additional Family Medical History / Comment(s): . General Exam Limitations: no limitations General appearance: alert, in no apparent distress Head exam: Present: atraumatic, normocephalic, normal inspection Respiratory exam: Present: normal lung sounds bilaterally. Absent: respiratory distress, wheezes, rales, rhonchi, stridor Cardiovascular Exam: Present: regular rate, normal rhythm, normal heart sounds. Absent: systolic murmur, diastolic murmur, rubs, gallop, clicks Neurological exam: Present: alert, oriented X3, CN II-XII intact Psychiatric exam: Present: normal affect, normal mood Skin exam: Present: warm, dry, intact, normal color. Absent: rash Course Vital Signs 04/13/23 04/13/23 04/13/23 10:07 10:24 10:30 Temperature 98.4 F Pulse Rate 65 Respiratory 18 Rate Blood Pressure 125/82 130/74 O2 Sat by Pulse 96 99 99 Oximetry 04/13/23 04/13/23 04/13/23 11:00 11:30 12:00 Temperature Pulse Rate 47 L 48 L 47 L Respiratory 15 Rate Blood Pressure 132/81 119/79 124/79 O2 Sat by Pulse 100 99 Oximetry 04/13/23 04/13/23 04/13/23 12:30 13:00 13:30 Temperature Pulse Rate 48 L 58 L Respiratory 17 Rate Blood Pressure 147/82 164/90 160/83 O2 Sat by Pulse 99 Oximetry Medical Decision Making - Medical Decision Making This is a 62-year-old female who presents to the emergency department for weakness and fatigue. Was pt. sent in by a medical professional or institution? @ -No Did you speak to anyone other than the patient for history? @ -Case management discussed the case with her niece and brother as listed below. They advised that the patient is at her baseline, and only came to the emergency department to have her potassium evaluated. Did you review nursing and triage notes? @ -Yes, and I agree, it is accurate with regards to the patient's symptoms. Were old charts reviewed? @ -No Differential Diagnosis? @ -Differential Weakness: Hypoglycemia, shock, sepsis, hyponatremia, anemia, infection, [place], ETOH, adverse medicine reaction, overdose, stroke, this is not meant to be an all-inclusive list. EKG interpreted by me (3pts min.)? @ -EKG interpreted by me demonstrating the following: Sinus bradycardia. Ventricular rate 57 bpm, TX interval 192 ms, QRS duration 96 ms, QTC 424 ms. X-rays interpreted by me (1pt min.)? @ -Chest x-ray obtained, my interpretation identifies no localized consolidations or infiltrates. CT interpreted by me (1pt min.)? @ -Not obtained U/S interpreted by me (1pt. min.)? @ -Not obtained What testing was considered but not performed? (CT, X-rays, U/S, labs)? Why? @ -None What meds were considered but not given? Why? @ -None Did you discuss the management of the patient with other professionals? @ -Case management initially discussed the case with the patient's niece. She advised that the patient was concerned that her potassium may be low, and wanted to be evaluated for this. They subsequently had a taxi bring her here. Family was advised that her potassium was within normal limits, and they were comfo rtable with her going back home. Per her brother, the patient is at her baseline and can take care of herself. Did you reconcile home meds? @ -No Was smoking cessation discussed for >3mins.? @ -No Was critical care preformed (if so, how long)? @ -No Were there social determinants of health that impacted care today? How? (Homelessness, low income, unemployed, alcoholism, drug addiction, transportation, low edu. Level, literacy, decrease access to med. care, long-term, rehab)? @ -No Was there de-escalation of care discussed even if they declined? (Discuss DNR or withdrawal of care, Hospice)? @ -No What co-morbidities impacted this encounter? (DM, HTN, Smoking, COPD, CAD, Cancer, CVA, Hep., AIDS, mental health diagnosis, sleep apnea, morbid obesity)? @ -Asthma, CHF, GERD, HLD, HTN, OA, thyroid disorder, seizure disorder Was patient admitted / discharged? @ -Discharged. Lab work obtained and found to be unremarkable. Covid, inf luenza, and RSV testing were negative. Urinalysis negative for signs of infection. Chest x-ray revealed no acute findings. On initial discussion with the patient, she was under the impression that she could not live alone and needed rehab placement. However, case management discussed the concern with the patient's niece. She clarified that the patient was actually concerned about her potassium being too low, and wanted this evaluated. They subsequently called a taxi to bring her to the emergency department. Case management advised that her potassium and other workup was normal at this time, and they were comfortable with her returning home. Patient's brother also confirmed that she was at her baseline and has no problem getting around or caring for herself. Patient was discharged back home in a taxi. Undiagnosed new problem with uncertain prognosis? @ -None Drug Therapy requiring intensive monitoring for toxicity (Heparin, Nitro, Insulin, Cardizem)? @ -None Were any procedures done? @ -None Diagnosis/symptom? @ -Fatigue, weakness Acute, or Chronic, or Acute on Chronic? @ -Acute Uncomplicated (without systemic symptoms) or Complicated (systemic symptoms)? @ -Uncomplicated Side effects of treatment? @ -None Exacerbation, Progression, or Severe Exacerbation] @ -Not applicable Poses a threat to life or bodily function? @ -No Return precautions reviewed in depth, the patient is instructed to return to the emergency department with any new, worsening, or concerning symptoms. Patient verbalized understanding. This case was discussed in detail with the attending ED physician, Dr. Giles. Presentation, findings, and treatment plan discussed in detail as well. - Lab Data Result diagrams: 04/13/23 11:32 04/13/23 11:32 Lab Results 04/13/23 04/13/23 04/13/23 Range/Units 10:50 11:32 11:32 WBC 5.0 (3.8-10.6) k/uL RBC 3.85 (3.80-5.40) m/uL Hgb 12.4 (11.4-16.0) gm/dL Hct 37.7 (34.0-46.0) % MCV 97.9 (80.0-100.0) fL MCH 32.2 (25.0-35.0) pg MCHC 32.9 (31.0-37.0) g/dL RDW 12.8 (11.5-15.5) % Plt Count 197 (150-450) k/uL MPV 8.0 Neutrophils % 69 % Lymphocytes % 23 % Monocytes % 5 % Eosinophils % 1 % Basophils % 1 % Neutrophils # 3.5 (1.3-7.7) k/uL Lymphocytes # 1.2 (1.0-4.8) k/uL Monocytes # 0.2 (0-1.0) k/uL Eosinophils # 0.0 (0-0.7) k/uL Basophils # 0.0 (0-0.2) k/uL PT 11.3 (10.0-12.5) sec INR 1.0 (<1.2) APTT 25.4 (22.0-30.0) sec Sodium (137-145) mmol/L Potassium (3.5-5.1) mmol/L Chloride (98-107) mmol/L Carbon Dioxide (22-30) mmol/L Anion Gap mmol/L BUN (7-17) mg/dL Creatinine (0.52-1.04) mg/dL Est GFR (CKD-EPI)AfAm (>60 ml/min/1.73 sqM) Est GFR (CKD-EPI)NonAf (>60 ml/min/1.73 sqM) Glucose (74-99) mg/dL POC Glucose (mg/dL) 91 (70-110) mg/dL POC Glu Drip Pumper ID John Slaughter Plasma Lactic Acid Kd (0.7-2.0) mmol/L Calcium (8.4-10.2) mg/dL Magnesium (1.6-2.3) mg/dL Total Bilirubin (0.2-1.3) mg/dL AST (14-36) U/L ALT (4-34) U/L Alkaline Phosphatase (38-126) U/L Troponin I (0.000-0.034) ng/mL Total Protein (6.3-8.2) g/dL Albumin (3.5-5.0) g/dL Urine Color Urine Appearance (Clear) Urine pH (5.0-8.0) Ur Specific [place] (1.001-1.035) Urine Protein (Negative) Urine Glucose (UA) (Negative) Urine Ketones (Negative) Urine Blood (Negative) Urine Nitrite (Negative) Urine Bilirubin (Negative) Urine Urobilinogen (<2.0) mg/dL Ur Leukocyte Esterase (Negative) Influenza Type A (PCR) (Not Detectd) Influenza Type B (PCR) (Not Detectd) RSV (PCR) (Not Detectd) SARS-CoV-2 (PCR) (Not Detectd) 04/13/23 04/13/23 04/13/23 Range/Units 11:32 11:32 11:32 WBC (3.8-10.6) k/uL RBC (3.80-5.40) m/uL Hgb (11.4-16.0) gm/dL Hct (34.0-46.0) % MCV (80.0-100.0) fL MCH (25.0-35.0) pg MCHC (31.0-37.0) g/dL RDW (11.5-15.5) % Plt Count (150-450) k/uL MPV Neutrophils % % Lymphocytes % % Monocytes % % Eosinophils % % Basophils % % Neutrophils # (1.3-7.7) k/uL Lymphocytes # (1.0-4.8) k/uL Monocytes # (0-1.0) k/uL Eosinophils # (0-0.7) k/uL Basophils # (0-0.2) k/uL PT (10.0-12.5) sec INR (<1.2) APTT (22.0-30.0) sec Sodium 138 (137-145) mmol/L Potassium 3.8 (3.5-5.1) mmol/L Chloride 104 (98-107) mmol/L Carbon Dioxide 30 (22-30) mmol/L Anion Gap 4 mmol/L BUN 10 (7-17) mg/dL Creatinine 0.57 (0.52-1.04) mg/dL Est GFR (CKD-EPI)AfAm >90 (>60 ml/min/1.73 sqM) Est GFR (CKD-EPI)NonAf >90 (>60 ml/min/1.73 sqM) Glucose 93 (74-99) mg/dL POC Glucose (mg/dL) (70-110) mg/dL POC Glu Drip Pumper ID Plasma Lactic Acid Kd 1.0 (0.7-2.0) mmol/L Calcium 9.1 (8.4-10.2) mg/dL Magnesium 2.0 (1.6-2.3) mg/dL Total Bilirubin 0.5 (0.2-1.3) mg/dL AST 17 (14-36) U/L ALT 10 (4-34) U/L Alkaline Phosphatase 70 (38-126) U/L Troponin I <0.012 (0.000-0.034) ng/mL Total Protein 5.8 L (6.3-8.2) g/dL Albumin 3.5 (3.5-5.0) g/dL Urine Color Urine Appearance (Clear) Urine pH (5.0-8.0) Ur Specific [place] (1.001-1.035) Urine Protein (Negative) Urine Glucose (UA) (Negative) Urine Ketones (Negative) Urine Blood (Negative) Urine Nitrite (Negative) Urine Bilirubin (Negative) Urine Urobilinogen (<2.0) mg/dL Ur Leukocyte Esterase (Negative) Influenza Type A (PCR) (Not Detectd) Influenza Type B (PCR) (Not Detectd) RSV (PCR) (Not Detectd) SARS-CoV-2 (PCR) (Not Detectd) 04/13/23 04/13/23 Range/Units 11:32 11:32 WBC (3.8-10.6) k/uL RBC (3.80-5.40) m/uL Hgb (11.4-16.0) gm/dL Hct (34.0-46.0) % MCV (80.0-100.0) fL MCH (25.0-35.0) pg MCHC (31.0-37.0) g/dL RDW (11.5-15.5) % Plt Count (150-450) k/uL MPV Neutrophils % % Lymphocytes % % Monocytes % % Eosinophils % % Basophils % % Neutrophils # (1.3-7.7) k/uL Lymphocytes # (1.0-4.8) k/uL Monocytes # (0-1.0) k/uL Eosinophils # (0-0.7) k/uL Basophils # (0-0.2) k/uL PT (10.0-12.5) sec INR (<1.2) APTT (22.0-30.0) sec Sodium (137-145) mmol/L Potassium (3.5-5.1) mmol/L Chloride (98-107) mmol/L Carbon Dioxide (22-30) mmol/L Anion Gap mmol/L BUN (7-17) mg/dL Creatinine (0.52-1.04) mg/dL Est GFR (CKD-EPI)AfAm (>60 ml/min/1.73 sqM) Est GFR (CKD-EPI)NonAf (>60 ml/min/1.73 sqM) Glucose (74-99) mg/dL POC Glucose (mg/dL) (70-110) mg/dL POC Glu Drip Pumper ID Plasma Lactic Acid Kd (0.7-2.0) mmol/L Calcium (8.4-10.2) mg/dL Magnesium (1.6-2.3) mg/dL Total Bilirubin (0.2-1.3) mg/dL AST (14-36) U/L ALT (4-34) U/L Alkaline Phosphatase (38-126) U/L Troponin I (0.000-0.034) ng/mL Total Protein (6.3-8.2) g/dL Albumin (3.5-5.0) g/dL Urine Color Colorless Urine Appearance Clear (Clear) Urine pH 6.5 (5.0-8.0) Ur Specific [place] 1.011 (1.001-1.035) Urine Protein Negative (Negative) Urine Glucose (UA) Negative (Negative) Urine Ketones Negative (Negative) Urine Blood Negative (Negative) Urine Nitrite Negative (Negative) Urine Bilirubin Negative (Negative) Urine Urobilinogen <2.0 (<2.0) mg/dL Ur Leukocyte Esterase Negative (Negative) Influenza Type A (PCR) Not Detected (Not Detectd) Influenza Type B (PCR) Not Detected (Not Detectd) RSV (PCR) Not Detected (Not Detectd) SARS-CoV-2 (PCR) Not Detected (Not Detectd) - Radiology Data Radiology results: report reviewed, image reviewed Disposition Clinical Impression: Weakness Disposition: HOME SELF-CARE Instructions (If sedation given, give patient instructions): Weakness (ED) Additional Instructions: Return to the emergency department with any new, worsening, or concerning symptoms. Follow up with your primary care provider in 1-2 days. Is patient prescribed a controlled substance at d/c from ED?: No Referrals: Júnior Hancock MD [Primary Care Provider] - 1-2 days
[2023-04-13 12:36] LABS: Appearance,Urine Clear (Clear); Bilirubin,Urine Negative (Negative); Blood,Urine Negative (Negative); Color,Urine Colorless; Glucose,Urine (UA) Negative (Negative); Ketones,Urine Negative (Negative); Leukocyte Esterase,Urine Negative (Negative); Nitrite,Urine Negative (Negative); PH, Urine 6.5 (5.0-8.0); Protein,Urine Negative (Negative); Specific Gravity,Urine 1.011 (1.001-1.035); Urobilinogen,Urine <2.0 mg/dL (<2.0)
[2023-04-13 13:32] VITALS: BP 160/83; PULSE 58; RESP 17
== END 2023-04-13 13:49 | disposition home or self-care (01) ==
LOC: EC 09:50
DX: R53.1 Weakness (principal); J45.909 Unspecified asthma, uncomplicated; I11.0 Hypertensive heart disease with heart failure; I50.9 Heart failure, unspecified; E78.5 Hyperlipidemia, unspecified; G47.30 Sleep apnea, unspecified; F32.A Depression, unspecified; Z79.82 Long term (current) use of aspirin; Z79.899 Other long term (current) drug therapy; Z79.51 Long term (current) use of inhaled steroids; Z20.822 Contact with and (suspected) exposure to COVID-19; Z88.0 Allergy status to penicillin; Z91.040 Latex allergy status; Z91.030 Bee allergy status; Z91.041 Radiographic dye allergy status; Z88.6 Allergy status to analgesic agent; Z88.8 Allergy status to other drugs, medicaments and biological substances
CPT/HCPCS: 36415; 71046; 80053; 81003; 83605; 83735; 84484; 85025; 85610; 85730; 87636; 93005; 96360; 99285

== ENCOUNTER 2023-04-22 14:38 | Emergency (ER) | payer MEDICARE ==
--- NOTE | 2023-04-22 15:21 | ED ---
General Adult HPI <NguyenMalcolm ham - Last Filed: 04/22/23 15:21> - General Source: patient, RN notes reviewed Mode of arrival: ambulatory Limitations: no limitations <Celia Negro - Last Filed: 04/23/23 03:14> - General Chief complaint: Vaginal Bleeding Stated complaint: Vaginal bleeding-sent by PCP Time Seen by Provider: 04/22/23 15:20 - History of Present Illness Initial comments: 62-year-old female presents to the ED with a chief complaint of vaginal bleeding. Patient states for the past 4 days has had bleeding from the vagina. Since onset, reports worsening of this. She states that she was advised by her primary care provider to present to the ED for further evaluation. (Malcolm Denson) This is a 62-year-old female who presents to the emergency department for v aginal bleeding. Patient states that this started 4-5 days ago. She did have a hysterectomy when she was around 20 years old. States that this was because she was having heavy periods and they could not figure out why. She is a fairly poor historian and information is difficult to obtain from the patient. She denies any abdominal pain or urinary symptoms. Also denies any pelvic pain associated with this. She is very inconsistent when asked about how many times today she changed her pads. She first said only 2 times a day and at another point she said 10 times a day. (Celia Negro) - Related Data Home Medications Medication Instructions Recorded Confirmed Aspirin EC [Ecotrin Low Dose] 81 mg PO DAILY 02/22/19 04/13/23 Pantoprazole [Protonix] 40 mg PO DAILY 11/10/19 04/13/23 Albuterol Inhaler [Ventolin Hfa 2 puff INHALATION RT-Q4H PRN 09/14/20 04/13/23 Inhaler] Montelukast [Singulair] 10 mg PO HS 09/14/20 04/13/23 levETIRAcetam [Keppra] 1,500 mg PO BID 09/14/20 04/13/23 Ferrous Sulfate [Iron] 325 mg PO DAILY 02/18/22 04/13/23 Levothyroxine Sodium 100 mcg PO DAILY 02/18/22 04/13/23 Cyanocobalamin (Vitamin B-12) 1,000 mcg PO DAILY 05/19/22 04/13/23 [Vitamin B-12] Ergocalciferol [Vitamin D2 (1250 1,250 mcg PO BUCKLEY 05/19/22 04/13/23 Mcg = 60174 Iu)] Loratadine [Claritin] 10 mg PO DAILY 05/19/22 04/13/23 Losartan [Cozaar] 25 mg PO DAILY 05/19/22 04/13/23 Lovastatin [Mevacor] 40 mg PO HS 05/19/22 04/13/23 Alendronate Sodium [Fosamax] 70 mg PO BUCKLEY 08/06/22 04/13/23 HYDROcodone/APAP 10-325MG [[place] 1 tab PO QID PRN 08/06/22 04/13/23 10-325] Potassium Chloride 20 meq PO DAILY 08/06/22 04/13/23 EPINEPHrine (Auto Inject) [Epipen] 0.3 mg IM ONCE PRN 03/20/23 04/13/23 Fluticasone Propionate 220 Mcg 2 puff INHALATION RT-BID 03/20/23 04/13/23 [Flovent 220 Mcg Inhaler] Gabapentin 600 mg PO TID 03/20/23 04/13/23 Perampanel [Fycompa] 10 mg PO HS 03/20/23 04/13/23 Allergies Allergy/AdvReac Type Severity Reaction Status Date / Time adhesive Allergy Rash/Hives Verified 04/22/23 15:25 bee venom protein (honey bee) Allergy Anaphylaxis Verified 04/22/23 15:25 buspirone [From BuSpar] Allergy Itching Verified 04/22/23 15:25 divalproex sodium Allergy Swelling Verified 04/22/23 15:25 [From Depakote] ibuprofen [From Motrin] Allergy Rash/Hives Verified 04/22/23 15:25 Iodinated Contrast Media Allergy Rash/Hives Verified 04/22/23 15:25 latex Allergy Rash/Hives Verified 04/22/23 15:25 Penicillins Allergy Rash/Hives Verified 04/22/23 15:25 topiramate [From Topamax] Allergy Swelling Verified 04/22/23 15:25 Review of Systems ROS Other: All systems not noted in ROS Statement are negative. <Malcolm Denson - Last Filed: 04/22/23 15:21> ROS Other: All systems not noted in ROS Statement are negative. <Celia Negro - Last Filed: 04/23/23 03:14> ROS Statement: Those systems with pertinent positive or pertinent negative responses have been documented in the HPI. Past Medical History Past Medical History: Asthma, Chest Pain / Angina, Heart Failure, GERD/Reflux, Hyperlipidemia, Hypertension, Osteoarthritis (OA), Pneumonia, Seizure Disorder, Skin Disorder, Sleep Apnea/CPAP/BIPAP, Thyroid Disorder Additional Past Medical History / Comment(s): Pinched nerves in back and neck, uses cane. Last seizure 4 weeks ago. "Blood pressure and heart rate go up and down all the time." Developementally disabled. Restless leg syndrome, neck and back pain with pain down bilateral legs, leg weakness, occasional numbness and tingling to bilateral hands and feet. CPAP use. Abdominal pain, diarrhea right after eating. Hx falls, persistant itching-cause unknown. Sees pain specialist for chronic pain. Hx pneumonia dehydration and seizure Dec 2021. Swelling in legs. History of Any Multi-Drug Resistant Organisms: None Reported Past Surgical History: Adenoidectomy, Bariatric Surgery, Cholecystectomy, Heart Catheterization, Hernia Repair, Hysterectomy, Tonsillectomy Additional Past Surgical History / Comment(s): Cervical surgery/cage, sleeve gastrectomy 12-01-18, LOOP RECORDER 05/28/2020. Past Anesthesia/Blood Transfusion Reactions: Previous Problems w/ Anesthesia Additional Past Anesthesia/Blood Transfusion Reaction / Comment(s): "Slow to wake up". States "was told by my sister's boyfriend that I had trouble breathing and almost during my neck surgery". No hx blood transfusion. Date of Last Stent Placement:: 06/03/2014 Type of Cardiac Device: Unknown Device Placement Date:: 05/28/2020 Past Psychological History: Depression Smoking Status: Never smoker Past Alcohol Use History: None Reported Past Drug Use History: None Reported - Past Family History Father Family Medical History: Cancer Additional Family Medical History / Comment(s): Stomach cancer. Sister(s) Family Medical History: Cancer Additional Family Medical History / Comment(s): Stomach cancer. Mother Family Medical History: No Reported History Additional Family Medical History / Comment(s): . <Malcolm Denson - Last Filed: 04/22/23 15:21> General Exam <Malcolm Denson - Last Filed: 04/22/23 15:21> General appearance: alert, in no apparent distress Head exam: Present: atraumatic, normocephalic, normal inspection Respiratory exam: Present: normal lung sounds bilaterally. Absent: respiratory distress, wheezes, rales, rhonchi, stridor Cardiovascular Exam: Present: regular rate, normal rhythm, normal heart sounds. Absent: systolic murmur, diastolic murmur, rubs, gallop, clicks GI/Abdominal exam: Present: soft, normal bowel sounds. Absent: distended, tenderness, guarding, rebound, rigid External exam: Present: normal external exam. Absent: erythema, swelling, lesions, lacerations Speculum exam: Present: normal speculum exam. Absent: erythema, vaginal discharge, cervical discharge, vaginal bleeding Neurological exam: Present: alert, oriented X3, CN II-XII intact Psychiatric exam: Present: normal affect, normal mood Skin exam: Present: warm, dry, intact, normal color. Absent: rash <Celia Negro - Last Filed: 04/23/23 03:14> - General Exam Comments Initial Comments: Visual Physical Exam Vital signs reviewed General: Well-appearing, nontoxic, no acute distress. Head: Normocephalic, atraumatic Eyes: PERRLA, EOMI ENT: Airway patent Chest: Nonlabored breathing Skin: No visual rash, normal skin tone Neuro: Alert and oriented 3 Musculoskeletal: No gross abnormalities (Malcolm Denson) Course Vital Signs 04/22/23 04/22/23 04/23/23 15:21 21:48 01:56 Temperature 98.3 F 98.1 F Pulse Rate 57 L 48 L 52 L Respiratory 18 18 16 Rate Blood Pressure 124/79 162/87 125/84 O2 Sat by Pulse 96 100 99 Oximetry Medical Decision Making <Malcolm Denson - Last Filed: 04/22/23 15:21> - Lab Data Result diagrams: 04/22/23 15:25 04/22/23 15:25 - Radiology Data Radiology results: report reviewed, image reviewed <Celia Negro - Last Filed: 04/23/23 03:14> - Medical Decision Making Quicknote portion performed. Signed Malcolm Denson PA-C (Malcolm Denson) This is a 62-year-old female who presents to the emergency department for vaginal bleeding. Was pt. sent in by a medical professional or institution? @ -No Did you speak to anyone other than the patient for history? @ -No Did you review nursing and triage notes? @ -Yes, and I agree, it is accurate with regards to the patient's symptoms. Were old charts reviewed? @ -No Differential Diagnosis? @ -Differential Vaginal Bleeding: Spontaneous , threatened , molar , ectopic , incompetent cervix, placenta previa, uterine rupture, dysfunctional uterine bleeding, hemorrhage, uterine fibroids, malignancy, coagulopathy, PID, cervicitis, adenomyosis, vaginal trauma, this is not meant to be an all- inclusive list. EKG interpreted by me (3pts min.)? @ -Not obtained X-rays interpreted by me (1pt min.)? @ -Not obtained CT interpreted by me (1pt min.)? @ -Not obtained U/S interpreted by me (1pt. min.)? @ -Not obtained What testing was considered but not performed? (CT, X-rays, U/S, labs)? Why? @ -None What meds were considered but not given? Why? @ -None Did you discuss the management of the patient with other professionals? @ -No Did you reconcile home meds? @ -No Was smoking cessation discussed for >3mins.? @ -No Was critical care preformed (if so, how long)? @ -No Were there social determinants of health that impacted care today? How? (Homelessness, low income, unemployed, alcoholism, drug addiction, transportation, low edu. Level, literacy, decrease access to med. care, [facility], rehab)? @ -No Was there de-escalation of care discussed even if they declined? (Discuss DNR or withdrawal of care, Hospice)? @ -No What co-morbidities impacted this encounter? (DM, HTN, Smoking, COPD, CAD, Cancer, CVA, Hep., AIDS, mental health diagnosis, sleep apnea, morbid obesity)? @ -None Was patient admitted / discharged? @ -Discharged. Lab work obtained and found to be unremarkable. Urinalysis negative for signs of infection. Pelvic ultrasound obtained revealing no acute findings, however the patient did have a total hysterectomy when she was 20 year s old and has no pelvic organs left. Per the electroneurodiagnostic technician, there was no blood on the vaginal probe. On physical examination, there was no obvious bleeding and the patient also had no blood on the pad she was wearing. States that she had put that pad on this morning. When she went to the restroom while in the emergency department she did not exhibit any bleeding. The cause of her symptoms is not entirely clear. It is also not clear if this was actually vaginal bleeding or coming from somewhere else. She was given information for [facility] follow up and also advised to follow up with her PCP. She was otherwise discharged home in stable condition. Undiagnosed new problem with uncertain prognosis? @ -None Drug Therapy requiring intensive monitoring for toxicity (Heparin, Nitro, Insulin, Cardizem)? @ -None Were any procedures done? @ -None Diagnosis/symptom? @ -Vaginal bleeding Acute, or Chronic, or Acute on Chronic? @ -Acute Uncomplicated (without systemic symptoms) or Complicated (systemic symptoms)? @ -Uncomplicated Side effects of treatment? @ -None Exacerbation, Progression, or Severe Exacerbation] @ -Not applicable Poses a threat to life or bodily function? @ -No Return precautions reviewed in depth, the patient is instructed to return to the emergency department with any new, worsening, or concerning symptoms. Patient verbalized understanding. This case was discussed in detail with the attending ED physician, Dr. Regalado. Presentation, findings, and treatment plan discussed in detail as well. (Celia Negro) - Lab Data Lab Results 04/22/23 04/22/23 04/22/23 Range/Units 15:25 15:25 15:25 WBC 5.6 (3.8-10.6) k/uL RBC 3.79 L (3.80-5.40) m/uL Hgb 12.0 (11.4-16.0) gm/dL Hct 36.8 (34.0-46.0) % MCV 97.0 (80.0-100.0) fL MCH 31.5 (25.0-35.0) pg MCHC 32.5 (31.0-37.0) g/dL RDW 12.7 (11.5-15.5) % Plt Count 209 (150-450) k/uL MPV 8.1 Neutrophils % 65 % Lymphocytes % 28 % Monocytes % 5 % Eosinophils % 1 % Basophils % 0 % Neutrophils # 3.6 (1.3-7.7) k/uL Lymphocytes # 1.6 (1.0-4.8) k/uL Monocytes # 0.3 (0-1.0) k/uL Eosinophils # 0.0 (0-0.7) k/uL Basophils # 0.0 (0-0.2) k/uL Sodium 139 (137-145) mmol/L Potassium 3.9 (3.5-5.1) mmol/L Chloride 104 (98-107) mmol/L Carbon Dioxide 27 (22-30) mmol/L Anion Gap 8 mmol/L BUN 17 (7-17) mg/dL Creatinine 0.58 (0.52-1.04) mg/dL Est GFR (CKD-EPI)AfAm >90 (>60 ml/min/1.73 sqM) Est GFR (CKD-EPI)NonAf >90 (>60 ml/min/1.73 sqM) Glucose 102 H (74-99) mg/dL Calcium 9.1 (8.4-10.2) mg/dL Total Bilirubin 0.4 (0.2-1.3) mg/dL AST 22 (14-36) U/L ALT 12 (4-34) U/L Alkaline Phosphatase 60 (38-126) U/L Total Protein 6.1 L (6.3-8.2) g/dL Albumin 3.6 (3.5-5.0) g/dL Urine Color Yellow Urine Appearance Cloudy H (Clear) Urine pH 5.0 (5.0-8.0) Ur Specific [place] 1.034 (1.001-1.035) Urine Protein Trace H (Negative) Urine Glucose (UA) Negative (Negative) Urine Ketones Negative (Negative) Urine Blood Small H (Negative) Urine Nitrite Negative (Negative) Urine Bilirubin Negative (Negative) Urine Urobilinogen <2.0 (<2.0) mg/dL Ur Leukocyte Esterase Moderate H (Negative) Urine RBC 3 (0-5) /hpf Urine WBC 12 H (0-5) /hpf Ur Squamous Epith Cells 2 (0-4) /hpf Calcium Oxalate Crystal Moderate H (None) /hpf Urine Mucus Occasional H (None) /hpf Disposition <Malcolm Denson - Last Filed: 04/22/23 15:21> Is patient prescribed a controlled substance at d/c from ED?: No <Celia Negro - Last Filed: 04/23/23 03:14> Clinical Impression: Vaginal bleeding Disposition: HOME SELF-CARE Additional Instructions: Return to the emergency department with any new, worsening, or concerning symptoms. Contact the [facility] as listed below for a follow up appointment regarding the vaginal bleeding. Follow up with your primary care provider in 1-2 days. Referrals: Júnior Hancock MD [Primary Care Provider] - 1-2 days Mahnaz Gottlieb DO [Doctor of Osteopathic Medicine] - 1-2 days
[2023-04-22 15:58] LABS: Basophils % (A) 0 %; Eosinophils % (A) 1 %; HCT 36.8 % (34.0-46.0); Lymphocytes # (A) 1.6 k/uL (1.0-4.8); Lymphocytes % (A) 28 %; MCH 31.5 pg (25.0-35.0); MCHC 32.5 g/dL (31.0-37.0); Mean Platelet Volume 8.1; Monocytes # (A) 0.3 k/uL (0-1.0); Monocytes % (A) 5 %; Neutrophils # (A) 3.6 k/uL (1.3-7.7); Neutrophils % (A) 65 %; Platelet Count 209 k/uL (150-450); RBC 3.79 m/uL (3.80-5.40); RDW 12.7 % (11.5-15.5); WBC 5.6 k/uL (3.8-10.6)
[2023-04-22 16:07] LABS: ALT 12 U/L (4-34); AST 22 U/L (14-36); African American GFR (CKD) >90 (>60 ml/min/1.73 sqM); Albumin 3.6 g/dL (3.5-5.0); Alkaline Phosphatase 60 U/L (38-126); Anion Gap 8 mmol/L; Blood Urea Nitrogen 17 mg/dL (7-17); Calcium 9.1 mg/dL (8.4-10.2); Carbon Dioxide 27 mmol/L (22-30); Chloride 104 mmol/L (98-107); Glucose 102 mg/dL (74-99); Non-African American GFR(CKD) >90 (>60 ml/min/1.73 sqM); Potassium 3.9 mmol/L (3.5-5.1); Sodium 139 mmol/L (137-145); Total Bilirubin 0.4 mg/dL (0.2-1.3); Total Protein 6.1 g/dL (6.3-8.2)
[2023-04-22 17:12] LABS: Appearance,Urine Cloudy (Clear); Bilirubin,Urine Negative (Negative); Blood,Urine Small (Negative); Calcium Oxalate Crystals,Urine Moderate /hpf; Color,Urine Yellow; Glucose,Urine (UA) Negative (Negative); Ketones,Urine Negative (Negative); Leukocyte Esterase,Urine Moderate (Negative); Mucus,Urine Occasional /hpf; Nitrite,Urine Negative (Negative); Protein,Urine Trace (Negative); RBC,Urine 3 /hpf (0-5); Specific Gravity,Urine 1.034 (1.001-1.035); Squamous Epithelial Cell,Urine 2 /hpf (0-4); Urobilinogen,Urine <2.0 mg/dL (<2.0); WBC,Urine 12 /hpf (0-5)
--- NOTE | 2023-04-22 23:53 | US ---
EXAMINATION TYPE: US pelvis limited transvag DATE OF EXAM: 04/22/2023 COMPARISON: 04/24/15 CLINICAL INDICATION: Female, 62 years old with history of postmenopausal vag bleed; Pt states vaginal bleeding x 5 days. No pelvic exam yet. No blood on transvaginal probe. Total hysterectomy when pt wa s around 20 years old. TECHNIQUE: . Transabdominal sonographic images of the pelvis were acquired. Transvaginal sonographi c images were medically necessary to better assess the following anatomy: Vag cuff. Limited color Dop pler used as needed. Date of LMP: 40+ years ago EXAM MEASUREMENTS: Uterus: Surgically absent Endometrial Stripe: Surgically absent Right Ovary: Surgically absent Left Ovary: Surgically absent 1. Uterus: Surgically absent 2. Endometrium: Surgically absent 3. Right Ovary: Surgically absent 4. Left Ovary: Surgically absent 5. Bilateral Adnexa: Peristalsing bowel 6. Posterior cul-de-sac: wnl No obvious abnormality seen IMPRESSION: 1. Status post hysterectomy and bilateral salpingo-oophorectomy. 2. No obvious sonographic abnormality.
[2023-04-23 02:19] VITALS: BP 125/84; PULSE 52; RESP 16; TEMP 98.1
== END 2023-04-23 01:59 | disposition home or self-care (01) ==
LOC: EC 14:38
DX: N93.9 Abnormal uterine and vaginal bleeding, unspecified (principal); I11.0 Hypertensive heart disease with heart failure; I50.9 Heart failure, unspecified; J45.909 Unspecified asthma, uncomplicated; K21.9 Gastro-esophageal reflux disease without esophagitis; G40.909 Epilepsy, unspecified, not intractable, without status epilepticus; E07.9 Disorder of thyroid, unspecified; E78.5 Hyperlipidemia, unspecified; G47.33 Obstructive sleep apnea (adult) (pediatric); F32.A Depression, unspecified; Z79.82 Long term (current) use of aspirin; Z79.890 Hormone replacement therapy; Z79.899 Other long term (current) drug therapy; Z88.0 Allergy status to penicillin; Z88.6 Allergy status to analgesic agent; Z88.8 Allergy status to other drugs, medicaments and biological substances; Z91.040 Latex allergy status; Z91.041 Radiographic dye allergy status; Z91.030 Bee allergy status; Z91.09 Other allergy status, other than to drugs and biological substances; Z90.49 Acquired absence of other specified parts of digestive tract
CPT/HCPCS: 36415; 76830; 76857; 80053; 81001; 85025; 99284

== ENCOUNTER → 2023-05-18 | Outpatient (CLI) | payer MEDICARE ==
[2023-05-18 10:59] VITALS: BP 130/82; PULSE 76; TEMP 97.9; BMI 28.6
--- NOTE | 2023-05-18 11:34 | P.HPBAR ---
Bariatric H&P - History & Physicial H&P Date: 05/18/23 History & Physicial: Visit/CC: sleeve F/U Patient initial contact: Initial weight: 137.438 kg Initial weight in pounds: 303.00 Height: 5 ft 7 in Initial BMI: 47.4 Last weight: Current weight: 83.007 kg Current weight in pounds: 183.00 Current BMI: 28.6 [place] body weight (based on NIH guidelines): 61.235 kg Excess body weight loss: 71.4% The patient is a 62 year-old F who presents for Bariatric Assessment. Patient has some minimal complaints of GERD. Patient states that she is undergoing neck surgery in 8 weeks. She denies any dysphagia. Past Medical History Past Medical History: Asthma, Chest Pain / Angina, Heart Failure, GERD/Reflux, Hyperlipidemia, Hypertension, Osteoarthritis (OA), Pneumonia, Seizure Disorder, Skin Disorder, Sleep Apnea/CPAP/BIPAP, Thyroid Disorder Additional Past Medical History / Comment(s): Pinched nerves in back and neck, uses cane. Last seizure 4 weeks ago. "Blood pressure and heart rate go up and down all the time." Developementally disabled. Restless leg syndrome, neck and back pain with pain down bilateral legs, leg weakness, occasional numbness and tingling to bilateral hands and feet. CPAP use. Abdominal pain, diarrhea right after eating. Hx falls, persistant itching-cause unknown. Sees pain specialist for chronic pain. Hx pneumonia dehydration and seizure Dec 2021. Swelling in legs. History of Any Multi-Drug Resistant Organisms: None Reported Past Surgical History: Adenoidectomy, Bariatric Surgery, Cholecystectomy, Heart Catheterization, Hernia Repair, Hysterectomy, Tonsillectomy Additional Past Surgical History / Comment(s): Cervical surgery/cage, sleeve gastrectomy 12-01-18, LOOP RECORDER 05/28/2020. Past Anesthesia/Blood Transfusion Reactions: Previous Problems w/ Anesthesia Additional Past Anesthesia/Blood Transfusion Reaction / Comm: "Slow to wake up". States "was told by my sister's boyfriend that I had trouble breathing and almost during my neck surgery". No hx blood transfusion. Date of Last Stent Placement:: 06/03/2014 Type of Cardiac Device: Unknown Device Placement Date:: 05/28/2020 Past Psychological History: Depression Additional Psychological History / Comment(s): pt developmentally disabled - states brother is anthony. Pt lives alone. Smoking Status: Never smoker Past Alcohol Use History: None Reported Additional Past Alcohol Use History / Comment(s): . Past Drug Use History: None Reported - Past Family History Father Family Medical History: Cancer Additional Family Medical History / Comment(s): Stomach cancer. Sister(s) Family Medical History: Cancer Additional Family Medical History / Comment(s): Stomach cancer. Mother Family Medical History: No Reported History Additional Family Medical History / Comment(s): . Surgical - Exam Vital Signs Temp Pulse BP 97.9 F 76 130/82 05/18/23 10:47 05/18/23 10:47 05/18/23 10:47 - General well developed, well nourished, no distress - Eyes PERRL - ENT normal pinna - Neck no masses - Respiratory normal expansion - Cardiovascular Rhythm: regular - Abdomen Abdomen: soft, non tender Bariatric Assessment & Plan Plan: Status post sleeve history. Patient appears minimal will be observed. She'll follow-up in 4 weeks. Bariatric Checklist Checklist: Plan: Checklist: EGD: 1. Hiatal hernia: 2. H. Pylori: HgbA1c: Vitamin D: Smoking: Never smoker Primary care physician referral: PCP Barbara Carter=, [employer] Psychiatry clearance: Cardiology clearance: Sleep study: Diet journal: VTE risk score: VTE risk level: Rehab needs at discharge:
== END ==
LOC: BARWHC3 10:13
PROVIDERS: ATTEND Surgery
DX: K21.9 Gastro-esophageal reflux disease without esophagitis (principal); E66.01 Morbid (severe) obesity due to excess calories; E78.5 Hyperlipidemia, unspecified; M19.90 Unspecified osteoarthritis, unspecified site; G47.30 Sleep apnea, unspecified; I11.0 Hypertensive heart disease with heart failure; I50.9 Heart failure, unspecified; F32.A Depression, unspecified; G25.81 Restless legs syndrome; J45.909 Unspecified asthma, uncomplicated; Z98.84 Bariatric surgery status; Z86.69 Personal history of other diseases of the nervous system and sense organs; Z87.2 Personal history of diseases of the skin and subcutaneous tissue; Z91.048 Other nonmedicinal substance allergy status; Z91.030 Bee allergy status; Z88.8 Allergy status to other drugs, medicaments and biological substances; Z91.040 Latex allergy status; Z88.6 Allergy status to analgesic agent; Z88.0 Allergy status to penicillin; Z79.899 Other long term (current) drug therapy; Z79.82 Long term (current) use of aspirin; Z68.28 Body mass index [BMI] 28.0-28.9, adult
CPT/HCPCS: 99211

== ENCOUNTER → 2023-07-09 | Outpatient (CLI) | payer MEDICARE | END | disposition home or self-care (01) | LOC: LABPAT 10:25 | PROVIDERS: ATTEND Orthopaedic Surgery | DX: Z01.812 Encounter for preprocedural laboratory examination (principal); Z22.322 Carrier or suspected carrier of Methicillin resistant Staphylococcus aureus; M48.02 Spinal stenosis, cervical region; M50.30 Other cervical disc degeneration, unspecified cervical region; M54.12 Radiculopathy, cervical region | CPT/HCPCS: 36415; 86850; 86900; 86901; 87070 ==

== ENCOUNTER 2023-07-16 05:51 | Inpatient (IN) | payer MEDICARE ==
[2023-07-13 12:19] VITALS: BMI 29.8
[~2023-07-16 05:51] MED LIST changes: -LACTATED RINGERS 1,000 ML IV SCH; +ONDANSETRON 4 MG/2 ML VIAL IVP PRN; +TRANEXAMIC 1,000 MG/100ML-NACL 1,000 MG in SALINE 1 100ML.BAG IVPB PRN
--- NOTE | 2023-07-16 06:17 | P.HPOR ---
History of Present Illness H&P Date: 07/09/23 .D:Date: 07/09/23 : 09:12am .T:Title: [facility] HISTORY AND PHYSICAL Age: 62 year Height: 5'6" Weight: 190 lbs BP:118/74 BMI: 30.67 kg/m2 Occupation: Disabled VAS: 9 Hand:Right IMPRESSION: It was my pleasure to have seen and examined Poly. I reviewed the patient's clinical syndrome, physical findings, and imaging studies during the appointment today. It is my impression that the patient has a diagnosis of. 1. 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 C3-7 spondylosis with stenosis 4. C6-7 foraminal stenosis 5. Cervicalgia 6. Bilateral upper extremity radiculopathy I outlined the natural course history without intervention and various interventional options. Spine Surgery Risk Review Ms. Fagan is presenting for evaluation of neck and bilateral upper extremity pain, bilateral upper extremity numbness and tingling. It was my pleasure to have seen and examined Ms. Fagan. In our visit today we have had a chance to go over subjective complaints, physical examination findings and treatments including the natural course history without intervention and various interventional options. The patients imaging demonstrates: [facility] of CervicalSpine: - Re-reviewed with the patient today. C3-7 spondylosis, severe with stenosis. Bony stenosis related to posterior osteophyte formation and disc collapse. severe stenosis at C4-5 due to disc osteophyte complex. No fractures noted. C6-7 foraminal stenosis related to large osteophyte formation. No OPLL. C0-1 and C1-2 stable. Post op changes as described. XRay taken on 11/16/20 of Lumbar, Cervical was reviewed by Dr. Méndez and indicates: - Re-reviewed with the patient today. Pt has post operative changes in her C spine with likely C6 corpectomy with plate fixation that appears to be loose. There is lucency around the screws and there is migration of the plate superiorly. There is adjacent segment disease noted C4-5 as well as likely stenosis related to this. In her lumbar spine she has a degenerative spondylolisthesis at L4-5 with spondylosis of L5-S1 and L3-4 noted. There is flattening of her normal lumbar lordosis as well as facet arthrosis noted. There are no acute fractures or dislocations and on bending films the L4-5 region does accentuate and reduce. - Lucency and migration of screws around a C6 corpectomy anterior cervical spine with likely pseudoarthrosis related to this. There is stenosis and ASD of C4-5 noted as well with stenosis. No acute fractures or dislocations noted. There is stenosis related to these levels. L spine shows Grade I spondylolisthesis with marginal stability with 5 mm of translation and reduction on this supine film. There is no acute fracture noted in this are abut there are pars insufficiency noted causing listhesis. Alignment is somewhat maintained however listhesis distrupts sagittal balance to effect. No other complicating findings CT Myelogram from 01/25/2021 of the Lumbar and Cervical spine: - Re-reviewed with the patient today. IMages reviewed demonstrate post surgical changes in the cervical spine with likely C6 corpectomy and C5-7 fusion. There is migration cranially of the plate with likely loosening of the cranial screws. The plate has started to migrate anteriorly as well. There is stenosis at these levels as well as the C4-5 level due to adjacent segment disease and collapse. There is facet arthrosis and incomplete fusion of the facets at these levels. Incomplete fusion is suspected anteriorly as well. Lumbar spine shows Grade I spondylolisthesis of L4-5 with likely instability. There is foraminal stenosis related to this as well as some central stenosis. No fractures or lesions noted in either films. On physical exam, Ms. Fagan demonstrates: A continued constant, ache-like burning pain throughout th posterior neck that radiates down into the bilateral upper extremities, hands, and fingers. She notes increased numbness and tingling throughout the upper extremities. She states her symptoms have significantly progressed since the time of her last office visit on 04/15/2023. The patient states her symptoms worsen after all activity, which makes it very difficult for her to complete any of her activities of daily living. She reports experiencing severe sleep disturbances related to her ongoing pain and associated symptoms. I have explained to the patient that as their condition progresses it will cause further neurological deficits and eventual paralysis. Based on the patients imaging, physical exam, and the rapid progression and disabling nature of their symptoms, at this time I recommend surgery in the form of a: C2-T2 posterior decompression and fusion. I discussed the risk and benefits of this procedure at length with Ms. Fagan. The patient agreed to considered pursuing the procedure above mentioned. Prior to surgery, she should follow up with her PCP (Cardio, ID, IM etc) for clearance. Questions were invited and answered, and the patient wishes to proceed as outlined below. Currently, I am recommendin.C2-T2 posterior decompression and fusion 2.Review of surgical risks and benefits as well as an educational packet on the proposed surgical procedure. Risks: All surgical procedures come with inherent risks, including those related to positioning, anesthesia, intraoperative findings, and postoperative com plications. It is important to understand that surgery does not come with any guarantee of a successful outcome as complications and adverse events are always possible. The patient was given a handout in office today discussing the surgical procedure and risks associated with the intervention, both of which were discussed with the patient. These risks include but are not limited to the following: * Experiencing same, different or even worse symptoms in back, neck, arms, or legs compared to before surgery. Requiring further surgery or other forms of treatment presently or at some time in the future at same or other levels of the intended spine surgery. On an extreme but fortunately relatively rare basis severe complication such as blindness, stroke, heart attack, temporary and/or permanent nerve injury, paralysis, coma, or may occur, sometimes without known explanation. Surgical complications may include but are not limited to risk of infection, fluid accumulation in the surgical dissection site, including a seroma or hematoma, that requires additional surgery, wound drainage, bleeding, new numbness or weakness, vision changes/loss, spinal fluid leakage, non-healing and/or infected incision, headaches, difficulty or inability to swallow, hoarseness, hemopneumothorax, pneumothorax, impotence, retrograde ejaculation, vaginal dryness; injury to nerves, spinal cord, blood vessels, lymphatics or other vital organs (i.e., bowel injury, injury to the great vessels); heterotopic bone formation; complications related to the hardware such as screws, rods, cages including misplaced hardware, device failure, instrumentation at the wrong spine level, hardware fracture/breakage, or hardware loosening; vertebral failure of the spinal column above or below the newly placed hardware; retained surgical instrumentations or devices and the need for further surgery. * Medical risks of the planned spine surgery include but are not limited to generalized Infections to the whole body or local areas outside of the surgical site (sepsis), heart attack, bleeding, anaphylaxis, meningitis, seizure, epilepsy, hearing loss, burn eisenberg, laceration of the head or other areas of the body, bruising, hypersensitivity of the skin, bladder over distension; allergic reaction; shoulder injury related to positioning; fat, blood and air clots to other areas of the body like heart, lungs, brain; failure of internal organs such as lungs, kidneys, liver and excessive bleeding. If blood transfusions are necessary, note that transfusions may cause intolerance reactions such as anaphylaxis or other complex reactions. Despite best efforts, the results of spine surgery might not heal in terms of bone, soft tissues such as skin, fascia, ligaments, and joints. Additionally, in order to achieve best possible results, spine surgery may be carried out beyond the initially planned levels and involve decompression, fusion including insertion of hardware at levels other than the original intended area of surgical interest change some portions of the procedure in order to ensure the best possible outcomes. With spine surgery and spinal fusion, there are different off label uses of i nstrumentation (devices, implants and hardware) as well as biological substances (bone morphogenic proteins, demineralized bone matrix) as well as using extra bone from allograft sources (i.e. cadaver bone) or autograft (iliac crest bone, ribs, or the spine itself). The patient has been given information about these practices and their inherent risks and benefits. [facility] is an educational center that serves as a training facility for neurosurgical and orthopedic POSTDOCTORAL FELLOW and Nursing students. Physician assistants are medically trained surgical providers who function in the outpatient, inpatient, and operating room setting under the direct supervision of the attending surgeon. [facility] has multiple operating rooms with single and overlapping rooms running daily. They currently function under the required guidelines as produced by the Senate Finance Committee with regards to the overlapping rooms and will continue to comply with changes to this policy as they occur. The requirements include and are complied with as follows: (1) the critical portions of the overlapping rooms will not occur at the same time, (2) the attending physician will be physically present during the critical portions of the procedure and immediately available during the entire case, and (3) a back-up attending is designated should the primary attending not be immediately available. The patient has had a chance to review all the listed information, has been given print outs detailing this information, and has had all his/her questions answered to their satisfaction. It was my pleasure to have seen and examined Ms. Fagan. In our visit today we have had a chance to go over my understanding of our patient's current condition, the natural course history without intervention and various interventional options. Questions were invited and answered, and the patient wishes to proceed as outlined above. I have seen and examined the patient for 25 minutes and we have spent more than 50% of the time in repeat and detailed counseling about the patient's condition, its natural course history with out and as much as can be predicted with surgery and re-review of various surgical t reatment options. In conclusion, Ms. Fagan requested we proceed with the above suggested surgery and are willing to accept risks and limitations of the suggested surgery as anuel ure of the disease process and our best attempts at treatment for the condition. FOLLOW UP: Post Procedure PATIENT EDUCATION: Medications Reviewed: YES In our visit today Ms. Fagan and I have had a chance to go over my understanding of the patient's current condition, the natural course history without intervention and various interventional options. Questions were invited and answered, and the patient wishes to proceed as outlined above. I will be sure to keep you updated after Ms. Fagan returns here for further follow-up. Thank you again for your referral. Please do not hesitate to contact me if you have any further questions. Signed and authenticated by: Scotty Krishnamurthy [facility] [address] [place] [phone] This message is confidential, intended only for the named recipient(s) and may contain information that is privileged or exempt from disclosure under applicable law. If you are not the intended recipient(s), you are notified that the dissemination, distribution or copying of this information is strictly prohibited. If you received this message in error, please notify the sender then delete this message. # SIGNED BY Scotty Preciado ([email or web address])07/15/2023 01:29PM Past Medical History Past Medical History: Asthma, Chest Pain / Angina, Heart Failure, GERD/Reflux, Hyperlipidemia, Hypertension, Osteoarthritis (OA), Pneumonia, Seizure Disorder, Skin Disorder, Sleep Apnea/CPAP/BIPAP, Thyroid Disorder Additional Past Medical History / Comment(s): implanted anti-seizure device., RLS, neck and back pain., leg weakness with hx falls., carpal tunnel syndrome karis., sleep apnea with c-pap machine., frequent diarrhea., occasional swelling in legs., states some urine incontinence., uses cane and walker., developmentally disabled , pt has Co-Guardians -[facility] public guardian and brother jurgen fagan. History of Any Multi-Drug Resistant Organisms: None Reported Past Surgical History: Adenoidectomy, Bariatric Surgery, Cholecystectomy, Heart Catheterization, Hernia Repair, Hysterectomy, Tonsillectomy Additional Past Surgical History / Comment(s): Cervical surgery/cage, sleeve gastrectomy 12-01-18, LOOP RECORDER 05/28/2020., implanted antiseizure device. Past Anesthesia/Blood Transfusion Reactions: Previous Problems w/ Anesthesia Additional Past Anesthesia/Blood Transfusion Reaction / Comment(s): takes a long time to wake up. Date of Last Stent Placement:: 06/03/2014 Type of Cardiac Device: Unknown Device Placement Date:: 05/28/2020 Past Psychological History: Depression Additional Psychological History / Comment(s): lives alone, [facility] public guardian and brother William Fagan ., consuelo Thomas takes care of pts medications. Smoking Status: Never smoker Past Alcohol Use History: None Reported Additional Past Alcohol Use History / Comment(s): . Past Drug Use History: None Reported - Past Family History Father Family Medical History: Cancer Additional Family Medical History / Comment(s): Stomach cancer. Sister(s) Family Medical History: Cancer Additional Family Medical History / Comment(s): Stomach cancer. Mother Family Medical History: No Reported History Additional Family Medical History / Comment(s): . Medications and Allergies Home Medications Medication Instructions Recorded Confirmed Type Aspirin EC [Ecotrin Low Dose] 81 mg PO DAILY 02/22/19 07/13/23 History Pantoprazole [Protonix] 40 mg PO DAILY 11/10/19 07/13/23 History Montelukast [Singulair] 10 mg PO HS 09/14/20 07/13/23 History levETIRAcetam [Keppra] 1,500 mg PO BID 09/14/20 07/13/23 History Ferrous Sulfate [Iron] 325 mg PO DAILY 02/18/22 07/13/23 History Levothyroxine Sodium 100 mcg PO DAILY 02/18/22 07/13/23 History Cyanocobalamin (Vitamin B-12) 1,000 mcg PO DAILY 05/19/22 07/13/23 History [Vitamin B-12] Ergocalciferol [Vitamin D2 (1250 1,250 mcg PO BUCKLEY 05/19/22 07/13/23 History Mcg = [id number] Iu)] Loratadine [Claritin] 10 mg PO DAILY 05/19/22 07/13/23 History Losartan [Cozaar] 25 mg PO DAILY 05/19/22 07/13/23 History Lovastatin [Mevacor] 40 mg PO HS 05/19/22 07/13/23 History Alendronate Sodium [Fosamax] 70 mg PO BUCKLEY 08/06/22 07/13/23 History HYDROcodone/APAP 10-325MG [Cameron 1 tab PO Q8HR PRN 08/06/22 07/13/23 History 10-325] Potassium Chloride 20 meq PO DAILY 08/06/22 07/13/23 History EPINEPHrine (Auto Inject) [Epipen] 0.3 mg IM ONCE PRN 03/20/23 07/13/23 History Gabapentin 600 mg PO TID 03/20/23 07/13/23 History Perampanel [Fycompa] 10 mg PO HS 03/20/23 07/13/23 History Albuterol Inhaler [Ventolin Hfa 1 - 2 puff INHALATION Q6H PRN 07/13/23 07/13/23 History Inhaler] Beclomethasone Dip 80 Mcg/Puff 1 puff INHALATION DIRECTED 07/13/23 07/13/23 History [Qvar 80 mcg] Hydrocortisone (Unknown Dose) 1 dose PO BID 07/13/23 History Vitamin C/Biotin [Hair, Skin and 1 tab PO DAILY 07/13/23 07/13/23 History Nails Chew] Allergies Allergy/AdvReac Type Severity Reaction Status Date / Time adhesive Allergy Rash/Hives Verified 07/13/23 11:31 bee venom protein (honey bee) Allergy Anaphylaxis Verified 07/13/23 11:31 buspirone [From BuSpar] Allergy Itching Verified 07/13/23 11:31 divalproex sodium Allergy Swelling, Verified 07/13/23 11:32 [From Depakote] sob. ibuprofen [From Motrin] Allergy Rash/Hives Verified 07/13/23 11:31 Iodinated Contrast Media Allergy Rash/Hives Verified 07/13/23 11:31 latex Allergy Rash/Hives Verified 07/13/23 11:31 Penicillins Allergy Rash/Hives Verified 07/13/23 11:31 topiramate [From Topamax] Allergy Swelling Verified 07/13/23 11:31 Physical Examination Osteopathic Statement: *. No significant issues noted on an osteopathic structural exam other than those noted in the History and Physical/Consult.
[2023-07-16] MEDS: ACETAMINOPHEN TAB 500 MG TAB PO PRN (06:51)
[2023-07-16] MEDS: GABAPENTIN 300 MG CAP PO PRN (06:51)
[2023-07-16] MEDS: SCOPOLAMINE 1 MG/72 HR PATCH TRANSDERM ONE (06:54)
[2023-07-16] MEDS: LACTATED RINGERS 1,000 ML IV SCH (07:03)
[2023-07-16] MEDS: ONDANSETRON 4 MG/2 ML VIAL IVP ONE (07:06)
[2023-07-16] MEDS: DEXAMETHASONE SOD PHOSPHATE 4 MG/ML 1 ML VIAL IV ONE (07:06)
[2023-07-16] MEDS ORDERED: SUCCINYLCHOLINE CHLORIDE 200 MG/10 ML VIAL IV ONE (07:27)
[2023-07-16] MEDS ORDERED: GLYCOPYRROLATE 0.2 MG/ML 2 ML VIAL ONE (07:27)
[2023-07-16] MEDS ORDERED: PROPOFOL 10 MG/ML 20 ML VIAL IV ONE (07:27)
[2023-07-16] MEDS ORDERED: fentaNYL (PF) 50 MCG/ML 2 ML AMP ONE (07:27)
[2023-07-16] MEDS ORDERED: NEOSTIGMINE 1 MG/ML 10 ML VIAL ONE (07:27)
[2023-07-16] MEDS ORDERED: ROCURONIUM 10 MG/ML (5 ML VIAL) IV ONE (07:27)
[2023-07-16] MEDS ORDERED: LIDOCAINE 1% INJ 10MG/ML (20 ML MDV) ONE (07:27)
[2023-07-16] MEDS ORDERED: TRANEXAMIC 1,000 MG/100ML-NACL PREMIX BAG ONE (07:27)
[2023-07-16] MEDS ORDERED: MIDAZOLAM 2 MG/2 ML VIAL ONE (07:27)
[2023-07-16] MEDS: LACTATED RINGERS 1,000 ML IV ONE (07:35)
[2023-07-16 07:36] LABS: Basophils % (A) 0 %; Eosinophils # (A) 0.1 k/uL (0-0.7); Eosinophils % (A) 1 %; HCT 36.8 % (34.0-46.0); HGB 12.1 gm/dL (11.4-16.0); Lymphocytes # (A) 1.3 k/uL (1.0-4.8); Lymphocytes % (A) 23 %; MCHC 32.9 g/dL (31.0-37.0); MCV 97.2 fL (80.0-100.0); Mean Platelet Volume 7.6; Monocytes # (A) 0.3 k/uL (0-1.0); Monocytes % (A) 6 %; Neutrophils # (A) 3.6 k/uL (1.3-7.7); Neutrophils % (A) 67 %; Platelet Count 205 k/uL (150-450); RBC 3.79 m/uL (3.80-5.40); RDW 12.7 % (11.5-15.5); WBC 5.4 k/uL (3.8-10.6)
[2023-07-16 07:41] LABS: INR 1.1 (<1.2); Prothrombin Time 11.9 sec (10.0-12.5)
[2023-07-16 07:52] LABS: African American GFR (CKD) >90 (>60 ml/min/1.73 sqM); Anion Gap 3 mmol/L; Blood Urea Nitrogen 10 mg/dL (7-17); Carbon Dioxide 30 mmol/L (22-30); Chloride 105 mmol/L (98-107); Glucose 97 mg/dL (74-99); Non-African American GFR(CKD) >90 (>60 ml/min/1.73 sqM); Potassium 3.4 mmol/L (3.5-5.1); Sodium 138 mmol/L (137-145)
[2023-07-16] MEDS: THROMBIN (BOVINE) 5,000 UNIT VIAL TOPICAL ONE (08:27)
[2023-07-16] MEDS: VANCOMYCIN 1,000 MG VIAL MISCELLANE ONE (09:52)
--- NOTE | 2023-07-16 10:37 | FL ---
EXAMINATION TYPE: FL guidance operating room DATE OF EXAM: 07/16/2023 HISTORY: Fluoroscopy time Total dose area product (DAP) in uGy*m?, mGy*cm? (or similar): 0.2869 IMPRESSION: 1. Fluoroscopy time.
--- NOTE | 2023-07-16 10:39 | XR ---
EXAMINATION TYPE: XR cervical spine limited DATE OF EXAM: 07/16/2023 COMPARISON: 03/27/2023 HISTORY: Posterior cervical fusion TECHNIQUE: 12 intraoperative views submitted FINDINGS: Varying stages of intraoperative surgical changes in postsurgical changes are demonstrated with overlying artifact. IMPRESSION: See above
[2023-07-16] MEDS ORDERED: MAGNESIUM HYDROXIDE 2,400 MG/30 ML CUP PO PRN (10:46)
[2023-07-16] MEDS ORDERED: SENNOSIDES-DOCUSATE SODIUM 1 EACH TAB PO PRN (10:46)
--- NOTE | 2023-07-16 10:51 | P.OP ---
Date of Procedure: 07/16/23 Preoperative Diagnosis: 1. C2-T1 spondylosis with stenosis 2. ASD s/p C5-7 ACDF with C6 corpectomy 3. Cervical myelopathy 4. UE and LE weakness 5. Neck pain Postoperative Diagnosis: 1. C2-T1 spondylosis with stenosis 2. ASD s/p C5-7 ACDF with C6 corpectomy 3. Cervical myelopathy 4. UE and LE weakness 5. Neck pain Procedure(s) Performed: 1. C2-T2 posterolateral instrumented fusion (91160, [id number]) 2. C2-T2 instrumentation (83691) 3. C2-T1 decompressive laminectomy, partial medial facetectomy and foraminotomy (43309, [id number]) use of ionm Implants: [employer]ERV[employer], AUTOGRAFT Anesthesia: GETA Surgeon: Scotty Preciado Vat Cleaner #1: Benton Sánchez (WAS PRESENT AND ASSISTED WITH ALL ASPECTS OF THE CASE FROM POSITION TO CLOSURE) Estimated Blood Loss (ml): 200 IV fluids (ml): 1,500 Urine output (ml): 350 Pathology: none sent Condition: stable Disposition: PACU Indications for Procedure: Ms. Casarez is presenting for evaluation of neck and bilateral upper extremity pain, bilateral upper extremity numbness and tingling. It was my pleasure to have seen and examined Ms. Casarez. In our visit today we have had a chance to go over subjective complaints, physical examination findings and treatments including the natural course history without intervention and various interventional options. The patients imaging demonstrates: [facility] of CervicalSpine: - Re-reviewed with the patient today. C3-7 spondylosis, severe with stenosis. Bony stenosis related to posterior osteophyte formation and disc collapse. severe stenosis at C4-5 due to disc osteophyte complex. No fractures noted. C6-7 foraminal stenosis related to large osteophyte formation. No OPLL. C0-1 and C1-2 stable. Post op changes as described. XRay taken on 11/16/20 of Lumbar, Cervical was reviewed by Dr. Méndez and indicates: - Re-reviewed with the patient today. Pt has post operative changes in her C spine with likely C6 corpectomy with plate fixation that appears to be loose. There is lucency around the screws and there is migration of the plate superiorly. There is adjacent segment disease noted C4-5 as well as likely stenosis related to this. In her lumbar spine she has a degenerative spondylolisthesis at L4-5 with spondylosis of L5-S1 and L3-4 noted. There is flattening of her normal lumbar lordosis as well as facet arthrosis noted. There are no acute fractures or dislocations and on bending films the L4-5 region does accentuate and reduce. - Lucency and migration of screws around a C6 corpectomy anterior cervical spine with likely pseudoarthrosis related to this. There is stenosis and ASD of C4-5 noted as well with stenosis. No acute fractures or dislocations noted. There is stenosis related to these levels. L spine shows Grade I spondylolisthesis with marginal stability with 5 mm of translation and reduction on this supine film. There is no acute fracture noted in this are abut there are pars insufficiency noted causing listhesis. Alignment is somewhat maintained however listhesis distrupts sagittal balance to effect. No other complicating findings CT Myelogram from 01/25/2021 of the Lumbar and Cervical spine: - Re-reviewed with the patient today. IMages reviewed demonstrate post surgical changes in the cervical spine with likely C6 corpectomy and C5-7 fusion. There is migration cranially of the plate with likely loosening of the cranial screws. The plate has started to migrate anteriorly as well. There is stenosis at these levels as well as the C4-5 level due to adjacent segment disease and collapse. There is facet arthrosis and incomplete fusion of the facets at these levels. Incomplete fusion is suspected anteriorly as well. Lumbar spine shows Grade I spondylolisthesis of L4-5 with likely instability. There is foraminal stenosis related to this as well as some central stenosis. No fractures or lesions noted in either films. On physical exam, Ms. Casarez demonstrates: A continued constant, ache-like burning pain throughout th posterior neck that radiates down into the bilateral upper extremities, hands, and fingers. She notes increased numbness and tingling throughout the upper extremities. She states her symptoms have significantly progressed since the time of her last office visit on 04/15/2023. The patient states her symptoms worsen after all activity, which makes it very difficult for her to complete any of her activities of daily living. She reports experiencing severe sleep disturbances related to her ongoing pain and associated symptoms. I have explained to the patient that as their condition progresses it will cause further neurological deficits and eventual paralysis. Based on the patients imaging, physical exam, and the rapid progression and disabling nature of their symptoms, at this time I recommend surgery in the form of a: C2-T2 posterior decompression and fusion. I discussed the risk and benefits of this procedure at length with Ms. Casarez. The patient agreed to considered pursuing the procedure above mentioned. Prior to surgery, she should follow up with her PCP (Cardio, ID, IM etc) for clearance. Questions were invited and answered, and the patient wishes to proceed as outlined below. Currently, I am recommendin.C2-T2 posterior decompression and fusion Description of Procedure: C2-T2 decompression and fusion The patient was seen and examined in the preoperative area. All preoperative protocols were followed. Informed consent was obtained, risks and benefits of the procedure were discussed at length. Risks including bleeding infection damage to the surrounding tissue and risk of reoperation were discussed with the patient. Risk of anesthesia up to and including was discussed with the patient. These are outlined in the risk review. They were willing to accept these risks and all of the risks of surgery. The patient was given a weight- based dose of antibiotics in the form of 2 g Ancef. The patient was seen and evaluated by the anesthesia team who deemed them fit for surgery. The site was marked, the patient was willing to proceed with the procedure. The patient was transferred to the operative suite by the Department of anesthesia. They were then drifted off to sleep by the department anesthesia and GETA was performed. The patient tolerated this well. pre-positioning motors were obtained.Worthington in place from the floor. Once confirmation of lines and ventilation Pinon head clamp was placed on the patient and secured and the patient was transferred to a [prone Reyes table very carefully] with the Pinon head of it the head was secured and placed into an optimal position x- ray confirmed this position. Post-positioning motors remained stable. All bony prominences including wrists, elbows, axilla, chest, hips, and thighs, and feet were padded very well. Special attention was paid to the genitalia and these were padded accordingly. SCDs were placed on bilateral lower extremities and were connected. Arms were well padded and placed tucked at his side thumbs down. Shoulders were gently taped down to the table.. Once in position, again we confirmed good ventilation capabilities and that lines were running appropriately. The patient's posterior cervical spine was then exposed. 1010s were placed outlining the incision site. Standard alcohol was used to clean the incision site and allowed to dry. C-arm was used to biomark the patient and confirm level for incision which was marked with a skin marker. Operative briefing was performed with all teams and everyone in agreement to proceed. The patient was then prepped and draped in a normal sterile fashion. Timeout was then performed and all parties were in agreement with the procedure to be performed. Midline skin incision made over the previously bio-marked area and dissection taken down midline to the SP of C2-T2. Subperiosteal dissection taken out over the lamina and lateral masses of C2-C7 and TVP of T1 and T2. Once exposure complete, the wound was irrigated and the C-arm brought in for imaging. A penfield 4 was used to bluntly dissect the medial border of C2 pedicle and placed for guidance. C arm used and a michi hole made for the starting point. The C2 pedicle was then drilled in 2 mm increments to 16 mm using a ball tip feeler in between each drill session to make sure within the 4 abrams with a good bottom. Once this was accomplished a screw was selected and placed under lateral fluoroscopic guidance. Screw had a good purchase. This was then repeated on the contralateral side. AP confirmed good placement of both screws. We then proceeded to the T1 and T2 screws bilaterally. A high speed michi was used to remove the facet joint of C7 and to create a starting point for T1 and similarly, T1 facet for T2. Pedicle finder was then passed into T1 and T2 and imaging taken to confirm placement this was then removed and a tap placed ball-tipped probe was then placed and 4 abrams of pedicle fell with good bottom. Screw was then measured and placed intoT1 and T2. This is repeated on the contralateral side. Imaging confirmed good placement of all 4 thoracic screws. The wound was then irrigated. Lateral mass screws were then drilled to 12 mm and placed at each level from C3-6. Each had a good bite. Rods were then sized and selected and cut to length. They were bent accordingly and lordosis and to fit the occiput plate. These were then secured into C2 bilaterally and then sequentially reduced into lateral mass screws and T1 and T2 screws without issues. All set screws were placed and were then final tightened and the position. Bilateral laminectomy, facetectomy and foraminotomies were then done from C2-T1 using high speed michi, kerrison rongeur and upbiting curette. Bilateral laminotomy troughs were made with michi followed by curette to release ligamentum. Rongure was then used to gently remove the lamina and facets posteriorly without issues. Meticulous hemostasis was performed after.. Motors were run before and after decompression and they remain stable. Good pulsations of the cord were noted after decompression. Foraminotomies then performed with kerrison rongeur and clean up of the laminectomy site. The wound was then copiously irrigated with 3 L of Ancef irrigation followed by 3 L of gentamicin irrigation followed by 3 L of normal sterile saline. Facet joints were drilled at each level to allow for fusion Surgicel was placed over the dura. MagnetOs were placed in the posterior lateral gutters along with autograft.. This was impacted into position for fusion. 2 g of powdered vancomycin was then placed deep within the wound and a deep drain was placed. We then proceeded with layered closure first in the deep fascia with #1 PDS then in the deep fascia followed by a running #1 stratafix. 0 Vicryl was used in the deep subq fascia and an 0 PDS stratafix used in the subdermal layer. Skin ashish then approximated skin edges. The wound edges approximated very well. The wound was then cleaned and dressed sterilely with an operative foam dressing 4 x 4 and Tegaderm. The drain had good suction. The patient was placed in a hard cervical collar. The patient was transferred back to their hospital bed atraumatically. Pinon head clamp was removed and pin sites were clear. Drain continued to hold suction. Patient was placed in a hard collar Patient was then awakened and extubated by the department of anesthesia having tolerated the procedure very well with no complications. They were transferred to the postoperative care unit in stable condition.
[2023-07-16] MEDS: HYDROmorphone 0.5 MG/0.5 ML SYRINGE IVP PRN ×2 (11:08→13:03)
[2023-07-16] MEDS: ACETAMINOPHEN TAB 325 MG TAB PO SCH (14:54)
--- NOTE | 2023-07-16 15:32 | CT ---
EXAMINATION TYPE: CT CervThoracic spine wo con CT DLP: 373.1 mGycm, Automated exposure control for dose reduction was used. DATE OF EXAM: 07/16/2023 2:00 PM COMPARISON: 03/27/2023 and prior's.. CLINICAL INDICATION:Female, 62 years old with history of s/p C2-T2 posterior cervical decompr fusion; PHH, s/p C2-T2 posterior cervical decompr fusion TECHNIQUE: Axial CT images from the skull base to the inferior aspect of T2 we obtained without intra venous contrast. Additional imaging of the thoracic spine was also performed. Coronal and sagittal re formatted images were also reviewed. Contrast used: mL of , (if blank None) Oral contrast used: (if blank None) FINDINGS: Fixation changes throughout the spine extending from C2 to T2 Hardware is posteriorly and appears int act. Drainage catheter terminates in the surgical bed. Subcutaneous gas compatible with recent surger y. Laminectomy changes extending from C3 through C7. Anterior fixation changes at C5-C6 and C7 with h ardware intact. Incomplete osseous fusion at these levels. There is no evidence for fracture. There i s multilevel degeneration changes throughout the visualized spine present. No evidence for significan t spinal canal stenosis or neural foraminal stenosis within the limitations of the exam. IMPRESSION: Postsurgical changes with hardware intact, no evidence for acute postop complication.
[2023-07-16] MEDS: hydrALAZINE HCL 20 MG/ML 1 ML VIAL IVP PRN (16:16)
[2023-07-16] MEDS: GABAPENTIN 300 MG CAP PO SCH (16:16)
[2023-07-16] MEDS: IPRATROPIUM-ALBUTEROL 3 ML NEB INHALATION SCH (21:48)
[2023-07-16] MEDS: ATORVASTATIN 10 MG TAB PO SCH (22:29)
[2023-07-16] MEDS: MONTELUKAST 10 MG TAB PO SCH (22:30)
[2023-07-16] MEDS: PERAMPANEL 10 MG PO SCH (22:30)
[2023-07-17] MEDS: LEVOTHYROXINE 100 MCG TAB PO SCH (06:03)
[2023-07-17] MEDS: HYDROcodone/APAP 10-325MG 1 EACH TAB PO PRN (07:50)
[2023-07-17 08:18] LABS: Basophils % (A) 0 %; Eosinophils # (A) 0.1 k/uL (0-0.7); Eosinophils % (A) 0 %; HCT 40.1 % (34.0-46.0); HGB 13.1 gm/dL (11.4-16.0); Lymphocytes # (A) 0.9 k/uL (1.0-4.8); Lymphocytes % (A) 5 %; MCH 31.6 pg (25.0-35.0); MCHC 32.7 g/dL (31.0-37.0); MCV 96.7 fL (80.0-100.0); Monocytes % (A) 6 %; Neutrophils # (A) 15.9 k/uL (1.3-7.7); Neutrophils % (A) 88 %; Platelet Count 228 k/uL (150-450); RBC 4.14 m/uL (3.80-5.40)
[2023-07-17] MEDS ORDERED: NON FORMULARY DRUG (Vitamin C/Biotin [Hair, Skin And Nails Chew] 1 EACH Tab.Chew) PO SCH (09:00)
[2023-07-17] MEDS: LOSARTAN 25 MG TAB PO SCH (09:43)
[2023-07-17] MEDS: PANTOPRAZOLE 40 MG TABLET PO SCH (09:44)
[2023-07-17] MEDS: ASPIRIN 81 MG PO SCH (09:44)
[2023-07-17] MEDS: POTASSIUM CHLORIDE ER 20 MEQ TAB.ER PO SCH (09:44)
[2023-07-17] MEDS: FERROUS SULFATE 325 MG TAB PO SCH (09:45)
[2023-07-17] MEDS: LORATADINE 10 MG TAB PO SCH (09:45)
[2023-07-17] MEDS: ONDANSETRON 4 MG/2 ML VIAL IVP PRN (11:01)
--- NOTE | 2023-07-17 11:27 | P.PN ---
Subjective Progress Note Date: 07/17/23 Principal diagnosis: 1. C2-T1 spondylosis with stenosis 2. ASD s/p C5-7 ACDF with C6 corpectomy 3. Cervical myelopathy 4. UE and LE weakness 5. Neck pain Patient was seen at bedside this morning lying semirecumbent position with a hard cervical collar in place and dressing present over posterior cervical spine. Patient seemed to be somewhat lethargic during encounter. Patient says she is having localized pain to the neck at this time. She says she has not been up out of bed. Worthington is currently in place. Patient says she is looking forward to working with therapy later today. Nurse did mention patient has vomited several times this morning. Patient denies chest pain, fever, shortness breath,, loss of bowel/bladder control. Objective - Vital Signs Vital signs: Vital Signs Temp 97.9 F 07/17/23 06:55 Pulse 80 07/17/23 08:55 Resp 18 07/17/23 06:55 BP 183/114 07/17/23 06:55 Pulse Ox 99 07/17/23 08:44 FiO2 Intake & Output 07/16/23 07/17/23 07/17/23 18:59 06:59 18:59 Intake Total 1600 900 Output Total 1999 2858 200 Balance -400 -1958 -200 Intake: IV 1600 Oral 900 Output: Drainage 58 Posterior Neck 58 Urine 1800 2750 Emesis 50 200 Estimated Blood Loss 200 Other: Voiding Method Indwelling Catheter - Exam Dressing in place over posterior cervical spine. Appears to be clean, dry, intact at this time. Drain in place with minimal serosanguineous output. Sensation is equal, symmetric, intact throughout the upper extremities on exam. There is some generalized tenderness to patient diffusely throughout the posterior cervical spine at midline and in the paravertebral region. Nontender to palpation throughout rest exam. Patient does have limited range of motion bilateral upper extremities and shoulders and for elevation, abduction, external/internal rotation secondary stiffness and weakness. Patient has full range of motion throughout elbows and wrists and flexor extension bilaterally. 4-/5 in all major motor was in bilateral upper extremities. Neurovascular status intact bilaterally. Cap refill under 3 seconds in digits of upper ex tremities. radial pulse intact, 2+ bilaterally. Negative Homans bilaterally. - Labs CBC & Chem 7: 07/17/23 07:23 07/16/23 07:26 Labs: Abnormal Lab Results - Last 24 Hours (Table) 07/17/23 Range/Units 07:23 WBC 18.0 H (3.8-10.6) k/uL Neutrophils # 15.9 H (1.3-7.7) k/uL Lymphocytes # 0.9 L (1.0-4.8) k/uL Assessment and Plan Assessment: 1. C2-T1 spondylosis with stenosis 2. ASD s/p C5-7 ACDF with C6 corpectomy 3. Cervical myelopathy 4. UE and LE weakness 5. Neck pain - Postop day 1 status post posterior cervical C2-T2 decompression and fusion Plan: 1. C2-T1 spondylosis with stenosis; ASD s/p C5-7 ACDF with C6 corpectomy; Ce rvical myelopathy; UE and LE weakness; Neck pain - surgery performed yesterday, there is a, 4posterior cervical C2-T2 decompression and fusion. Patient stable at bedsisw this morning with hard c-collar in place and a dressing present over posterior cervical spine and Worthington in place. Plan to work with therapy daily. Maintain drain in place at this time. Zofran for nausea/vomiting. Pain medication as needed. Weight-bear as tolerated with walker and assistance as needed and hard c-collar at all times. We'll continue to follow patient during stay at Hospital. Discharge planning pending 2. Appreciate medical management 3. Pain management - [place]; Dilaudid 4. GI prophylaxis - senna; milk of magnesia 5. DVT prophylaxis - mechanical 6. PT/OT - weightbearing as tolerated with walker as needed and assistance. Hard c-collar on at all times 7. Encourage incentive spirometer use 8. Discharge planning - pending Time with Patient: Less than 30
[2023-07-17 12:06] LABS: African American GFR (CKD) >90 (>60 ml/min/1.73 sqM); Anion Gap 8 mmol/L; Blood Urea Nitrogen 11 mg/dL (7-17); Calcium 8.9 mg/dL (8.4-10.2); Carbon Dioxide 24 mmol/L (22-30); Chloride 98 mmol/L (98-107); Glucose 134 mg/dL (74-99); Non-African American GFR(CKD) >90 (>60 ml/min/1.73 sqM); Sodium 130 mmol/L (137-145)
[2023-07-18] MEDS: ZINC OXIDE PASTE (Z-GUARD) 1 APPLIC TOPICAL PRN (00:14)
--- NOTE | 2023-07-18 01:04 | CONS ---
CONSULTATION HISTORY OF PRESENT ILLNESS: Status post cervical surgery. Home medications have been reordered. She is little bit sleepy, lethargic. She has severe pain in her neck. She had a cervical collar on. PHYSICAL EXAMINATION: VITAL SIGNS: Appear to be stable except for blood pressure is little bit high postop. She is on 3 L oxygen and pulse 70s-80s, blood pressure 150s-170s over 60s-80s. Started her on IV hydralazine to lower blood pressure down. CARDIOVASCULAR: S1, S2. ABDOMEN: Soft. HEMATOLOGY: Negative Homans. PSYCH: Sleepy, lethargic. Fair mood and affect. NEUROLOGIC: Alert and oriented x3. ASSESSMENT AND PLAN: She is status post cervical C4-C5 segments, severe stenosis, fusion. She has a history of chronic obstructive pulmonary disease, obstructive sleep apnea, hypertension. She wears a CPAP at night normally. I would recommend continuing on her CPAP, home medications, and breathing treatments. Hypertension acceleration, treat with hydralazine. Continue current treatments. Prognosis guarded. MMODL / IJN: [id number] /
--- NOTE | 2023-07-18 06:34 | PN ---
PROGRESS NOTE SUBJECTIVE: White female, status post surgery of cervical spinal. We are going to order a CPAP overnight for her breathing. Postsurgical changes on CAT scan of the cervical thoracic. Hardware appears intact. She is more alert today. Temperature 97.8, pulse 74, respiratory rate 18, blood pressure 158/101, and O2 is 100% on 3 L. We will order CPAP tonight. Continue breathing treatments. Prognosis guarded. Check labs in the morning. Home medicines have been reordered. She has a leukocytosis, unclear, reactive to surgery. Hypokalemia is improved. She is mildly hyponatremic. Possibly give her some fluids overnight. She is to continue her Synthroid for hypothyroidism. Her blood pressure medications will be continued. She has a history of seizures, seizure medications have been ordered; sleep apnea, CPAP has been ordered. Prognosis guarded. Please see further orders. MMODL / IJN: [id number] /
--- NOTE | 2023-07-18 09:44 | P.PN ---
Subjective Progress Note Date: 07/18/23 Principal diagnosis: Status post C2-T2 posterior lateral decompression and fusion Patient was examined today at bedside, she is in her hospital bed. The urinary catheter remains in place. Patient seems very lethargic and out of it today at bedside. Discussed with nursing, she was on max assist yesterday and has not been out of bed at this time. Patient took a very long time answering my questions, she was better with one-word answers. Objective - Vital Signs Vital signs: Vital Signs Temp 97.8 F 07/18/23 07:05 Pulse 80 07/18/23 09:23 Resp 16 07/18/23 07:05 BP 134/78 07/18/23 07:05 Pulse Ox 100 07/18/23 07:05 FiO2 Intake & Output 07/17/23 07/18/23 07/18/23 18:59 06:59 18:59 Intake Total 660 Output Total 1375 200 Balance -715 -200 Intake: Intake, IV Titration 320 Amount Lactated Ringers 1,000 ml 220 @ 20 mls/hr IV .Q24H BERTHA Rx#:[id number] ceFAZolin 2 gm In Sodium 100 Chloride 0.9% 50 ml @ 100 mls/hr IVPB Q8H BERTHA Rx#: [id number] Oral 340 Output: Drainage 25 Posterior Neck 25 Urine 1150 200 Emesis 200 Other: Voiding Method Indwelling Catheter Indwelling Catheter # Bowel Movements 1 - Exam Gen: AOx3, NAD VSS stable at this time Integument: Postoperative dressing is in good position and condition. Patient is utilizing the rigid c-collar. There is mild bloody serosanguineous output in the Hemovac drain Palpation: Mild tenderness with palpation of the posterior cervical spine ROM: With significant coaching patient is able to extend and flex the elbows, she can extend and flex the wrist can move both hands. She is having a difficult time with shoulder elevation. Range of motion in the lower extremities again with coaching she is able to plantar and dorsiflex, knee extension, knee flexion and hip flexion remain limited Sensory Exam: Sen[place] exam to light touch is intact C5-T1 Senosry exam to light touch is intact L2-S1 Motor: Strength testing was not assessed of the bilateral upper and lower extremities due to her lethargic state Reflexes: 2/4 in all UE and LE Negative Aramis's, clonus bilaterally - Labs CBC & Chem 7: 07/17/23 07:23 07/17/23 07:23 Labs: Abnormal Lab Results - Last 24 Hours (Table) 07/17/23 Range/Units 07:23 Sodium 130 L (137-145) mmol/L Creatinine 0.33 L (0.52-1.04) mg/dL Glucose 134 H (74-99) mg/dL Microbiology - Last 24 Hours (Table) 07/16/23 10:00 Gram Stain - Preliminary Neck 07/16/23 10:00 Gram Stain - Preliminary Neck Assessment and Plan Assessment: Postoperative day #2 status post C2-T2 posterior lateral decompression and fusion Plan: Pain control, I did adjust patient's medications. I had a long discussion with nursing today to try to avoid narcotics. I would hold gabapentin and all IV pain medication at this time. Oral Tylenol is available, [place] 7.5 mg / 325 mg is also available. Maintain rigid c-collar, maintain drain at this time. Would like to monitor drain output as patient is a little bit more mobile Weight-bear as tolerated, utilize walker Urinary catheter can be discontinued once patient is more mobile DVT prophylaxis, heparin 5000 units every 12 hours Other medical specialty recommendations appreciated Discharge planning: Patient will likely need subacute rehab, anticipate discharge later next week Time with Patient: Less than 30
[2023-07-18] MEDS: HEPARIN SODIUM,PORCINE 5,000 UNIT/ML 1 ML VIAL SQ SCH (10:55)
--- NOTE | 2023-07-18 11:13 | PN ---
PROGRESS NOTE SUBJECTIVE: She is very lethargic, in a lot of pain postop, has not really moved in her bed or got out of bed yet. She seems very lethargic. She is supposed to wear a CPAP last night. OBJECTIVE: VITAL SIGNS: Temperature 97.8, pulse 80, respiratory rate 16 to 18, blood pressure 134/78. CARDIOVASCULAR: S1, S2. LUNGS: Transmitted upper sounds. PSYCH: Fair mood and affect. EXTREMITIES: Reflexes 2+. LABORATORY DATA: White count is 18.0, wait for another white count today. Postop day 2, C2-T2 posterolateral decompression and fusion. Pain control. Avoid narcotics. Hold gabapentin, although she does use that for seizures, she has a seizure history. She is aware of her breathing treatments. She is due to her breathing treatments as well as her CPAP at night. We will monitor another white count. PROGNOSIS: Guarded. MMKAMILLAL / IJN: [id number] /
[2023-07-18] MEDS ORDERED: DEXTROSE 50% SYRINGE 50 ML IVP PRN ×2 (11:29)
[2023-07-18] MEDS: levETIRAcetam ORAL SOLN 500 MG/5 ML CUP PO ONE (13:47)
[2023-07-18] MEDS: FERROUS SULFATE ORAL ELIXIR 300 MG/5 ML CUP PO SCH (13:47)
[2023-07-18 13:48] LABS: Glucose,Whole Blood 117 mg/dL (70-110)
[2023-07-18] MEDS: INSULIN ASPART (NovoLOG) 100 UNIT/ML VIAL SQ SCH (13:55)
[2023-07-18] MEDS: methylPREDNISolone SOD SUCCI 40 MG/ML 1 ML VIAL IV SCH (13:56)
[2023-07-18 14:03] LABS: ALT 34 U/L (8-44); AST 22 U/L (13-35); Albumin 3.9 g/dL (3.8-4.9); Albumin/Globulin Ratio 1.95 Ratio (1.60-3.17); Alkaline Phosphatase 75 U/L (41-126); Blood Urea Nitrogen 16.3 mg/dL (9.0-27.0); Calcium 9.2 mg/dL (8.7-10.3); Carbon Dioxide 27.9 mmol/L (21.6-31.8); Chloride 95 mmol/L (96-109); Glucose 121 mg/dL (70-110); Potassium 3.8 mmol/L (3.5-5.5); Sodium 133 mmol/L (135-145); Total Bilirubin 0.6 mg/dL (0.3-1.2); Total Protein 5.9 g/dL (6.2-8.2)
[2023-07-18 16:47] LABS: Glucose,Whole Blood 127 mg/dL (70-110)
[2023-07-18 17:14] LABS: Basophils # (A) 0.03 X 10*3/uL (0.00-0.10); Basophils % (A) 0.2 %; Eosinophils # (A) 0.01 X 10*3/uL (0.04-0.35); Eosinophils % (A) 0.1 %; HCT 38.2 % (37.2-46.3); Lymphocytes % (A) 4.6 %; MCH 32.3 pg (27.0-32.0); MCV 94.8 FL (80.0-97.0); Mean Platelet Volume 11.5 FL (9.5-12.2); Monocytes % (A) 10.5 %; NRBC Per 100 WBC 0 X 10*3/uL (0.00-0.01); Neutrophils # (A) 12.88 X 10*3/uL (1.80-7.70); Neutrophils % (A) 84.1 %; Platelet Count 211 X 10*3/uL (140-440); RBC 4.03 X 10*6/uL (4.10-5.20); WBC 15.29 X 10*3/uL (4.50-10.00)
[2023-07-18 19:49] LABS: Glucose,Whole Blood 143 mg/dL (70-110)
[2023-07-18] MEDS: levETIRAcetam ORAL SOLN 500 MG/5 ML CUP PO SCH (20:53)
[2023-07-18] MEDS: MONTELUKAST 5 MG CHEWABLE PO SCH (20:53)
[2023-07-18] MEDS: HYDROcodone/APAP 7.5-325MG 1 EACH TAB PO PRN (21:00)
[2023-07-19 05:50] LABS: Glucose,Whole Blood 137 mg/dL (70-110)
[2023-07-19] MEDS: CYCLOBENZAPRINE 5 MG TAB PO PRN (08:34)
[2023-07-19] MEDS: POTASSIUM BICARBONATE/CIT AC 20 MEQ TABLET.EFF PO SCH (08:35)
--- NOTE | 2023-07-19 10:56 | P.PN ---
Subjective Progress Note Date: 07/19/23 Principal diagnosis: Status post C2-T2 posterior lateral decompression and fusion Patient was examined today at bedside, she is in her hospital bed. Patient seems much more alert today at bedside, she answers all my questions accurately. Urinary catheter was removed, she was on the bedpan. She states that she did take a lower dose [place] Varina today which seems to have helped with the posterior neck pain. She currently has no headaches, lightheadedness, chest pain or shortness of breath Objective - Vital Signs Vital signs: Vital Signs Temp 97.5 F L 07/19/23 07:45 Pulse 75 07/19/23 09:18 Resp 18 07/19/23 07:45 BP 137/82 07/19/23 07:45 Pulse Ox 97 07/19/23 09:00 FiO2 Intake & Output 07/18/23 07/19/23 07/19/23 18:59 06:59 18:59 Intake Total 250 Output Total 400 Balance -150 Intake: Oral 250 Output: Urine 400 Other: Voiding Method Bedpan Diaper # Voids 1 5 - Exam Gen: AOx3, NAD VSS stable at this time Integument: Postop dressing and Hemovac drain were removed today at bedside, ashish are all in good position and condition. There is a mild amount of bloody serosanguineous drainage noted on the bandage. 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 4/5 strength appreciated the bilateral lower extremities with hip flexion, knee extension, knee flexion, plantarflexion, dorsiflexion, EHL, FHL Reflexes: 2/4 in all UE and LE Negative Aramis's, clonus bilaterally - Labs CBC & Chem 7: 07/18/23 07:15 07/18/23 07:15 Labs: Abnormal Lab Results - Last 24 Hours (Table) 07/18/23 07/18/23 07/18/23 Range/Units 07:15 07:15 13:47 WBC 15.29 H (4.50-10.00) X 10*3/uL RBC 4.03 L (4.10-5.20) X 10*6/uL MCH 32.3 H (27.0-32.0) pg Immature Gran # 0.07 H (0.00-0.04) X 10*3/uL Neutrophils # 12.88 H (1.80-7.70) X 10*3/uL Lymphocytes # 0.70 L (0.90-5.00) X 10*3/uL Monocytes # 1.60 H (0.20-1.00) X 10*3/uL Eosinophils # 0.01 L (0.04-0.35) X 10*3/uL Sodium 133 L (135-145) mmol/L Chloride 95 L (96-109) mmol/L Creatinine 0.5 L (0.6-1.5) mg/dL BUN/Creatinine Ratio 32.60 H (12.00-20.00) Ratio Glucose 121 H (70-110) mg/dL POC Glucose (mg/dL) 117 H (70-110) mg/dL Total Protein 5.9 L (6.2-8.2) g/dL 07/18/23 07/18/23 07/19/23 Range/Units 16:46 19:47 05:49 WBC (4.50-10.00) X 10*3/uL RBC (4.10-5.20) X 10*6/uL MCH (27.0-32.0) pg Immature Gran # (0.00-0.04) X 10*3/uL Neutrophils # (1.80-7.70) X 10*3/uL Lymphocytes # (0.90-5.00) X 10*3/uL Monocytes # (0.20-1.00) X 10*3/uL Eosinophils # (0.04-0.35) X 10*3/uL Sodium (135-145) mmol/L Chloride (96-109) mmol/L Creatinine (0.6-1.5) mg/dL BUN/Creatinine Ratio (12.00-20.00) Ratio Glucose (70-110) mg/dL POC Glucose (mg/dL) 127 H 143 H 137 H (70-110) mg/dL Total Protein (6.2-8.2) g/dL Microbiology - Last 24 Hours (Table) 07/16/23 10:00 Gram Stain - Preliminary Neck Wound Culture - Preliminary 07/16/23 10:00 Gram Stain - Preliminary Neck Wound Culture - Preliminary Assessment and Plan Assessment: Postoperative day #3 status post C2-T2 posterior lateral decompression and fusion Plan: Pain control, will continue to utilize the [place] Varina 7.5 mg / 325 mg sparingly. Will restart her gabapentin, I would like to utilize 300 mg twice daily versus the 600 mg 3 times daily. Continue Tylenol also as needed. Maintain rigid c-collar, maintain drain at this time. Monitor surgical dressing Weight-bear as tolerated, utilize walker DVT prophylaxis, heparin 5000 units every 12 hours PT/OT Encourage incentive spirometer Other medical specialty recommendations appreciated Discharge planning: Will discuss with case management on 07/20/2023 options for discharge Time with Patient: Less than 30
[2023-07-19 11:36] LABS: Glucose,Whole Blood 138 mg/dL (70-110)
[2023-07-19] MEDS: PANTOPRAZOLE 40 MG/10 ML VIAL IVP SCH (12:42)
[2023-07-19 16:45] LABS: Glucose,Whole Blood 153 mg/dL (70-110)
[2023-07-19] MEDS: GABAPENTIN 300 MG CAP PO SCH (20:19)
[2023-07-19 20:44] LABS: Glucose,Whole Blood 155 mg/dL (70-110)
[2023-07-20 06:01] LABS: Glucose,Whole Blood 128 mg/dL (70-110)
[2023-07-20 08:46] LABS: ALT 18 U/L (8-44); AST 9 U/L (13-35); Albumin 3.6 g/dL (3.8-4.9); Albumin/Globulin Ratio 1.64 Ratio (1.60-3.17); Alkaline Phosphatase 63 U/L (41-126); Blood Urea Nitrogen 27.2 mg/dL (9.0-27.0); Calcium 9.4 mg/dL (8.7-10.3); Carbon Dioxide 31.1 mmol/L (21.6-31.8); Chloride 100 mmol/L (96-109); Globulin 2.2 g/dL (1.6-3.3); Glucose 140 mg/dL (70-110); Potassium 4.4 mmol/L (3.5-5.5); Sodium 139 mmol/L (135-145); Total Bilirubin 0.3 mg/dL (0.3-1.2); Total Protein 5.8 g/dL (6.2-8.2)
--- NOTE | 2023-07-20 09:24 | P.PN ---
Subjective Progress Note Date: 07/20/23 Principal diagnosis: 1. C2-T1 spondylosis with stenosis 2. ASD s/p C5-7 ACDF with C6 corpectomy 3. Cervical myelopathy 4. UE and LE weakness 5. Neck pain Patient was seen at bedside this morning lying semirecumbent position with a hard cervical collar in place and dressing present over posterior cervical spine. Patient says she is having localized pain to the neck and shoulder blades at this time. She says over the weekend she has gotten up to the chair and to the commode. Patient says she has not been able to make her bathroom. Patient says she is looking forward to working with therapy later today. Patient is hoping Rehab upon discharge. Patient denies chest pain, fever, shortness breath,, loss of bowel/bladder control. Objective - Vital Signs Vital signs: Vital Signs Temp 98.1 F 07/20/23 07:05 Pulse 96 07/20/23 08:54 Resp 18 07/20/23 07:05 BP 144/84 07/20/23 07:05 Pulse Ox 98 07/20/23 07:05 FiO2 Intake & Output 07/19/23 07/20/23 07/20/23 18:59 06:59 18:59 Other: Voiding Method Bedpan Bedpan # Voids 4 5 # Bowel Movements 1 - Exam Dressing in place over posterior cervical spine. Dressing removed and new dressing placed over incision. [place] well aligned and intact. Some ecchymoses present surrounding incision. Sensation is equal, symmetric, intact throughout the upper extremities on exam. There is some generalized tenderness to patient diffusely throughout the posterior cervical spine at midline and in the paravertebral region. Nontender to palpation throughout rest exam. Patient does have limited range of motion bilateral upper extremities and shoulders and for elevation, abduction, external/internal rotation secondary stiffness and weakness. Patient has full range of motion throughout elbows and wrists and flexor extension bilaterally. 4-/5 in all major motor groups in bilateral upper extremities. Neurovascular status intact bilaterally. Cap refill under 3 seconds in digits of upper extremities. radial pulse intact, 2+ bilaterally. Negative Homans bilaterally. - Labs CBC & Chem 7: 07/18/23 07:15 07/20/23 04:07 Labs: Abnormal Lab Results - Last 24 Hours (Table) 07/19/23 07/19/23 07/19/23 Range/Units 11:35 16:44 20:43 BUN (9.0-27.0) mg/dL Creatinine (0.6-1.5) mg/dL BUN/Creatinine Ratio (12.00-20.00) Ratio Glucose (70-110) mg/dL POC Glucose (mg/dL) 138 H 153 H 155 H (70-110) mg/dL AST (13-35) U/L Total Protein (6.2-8.2) g/dL Albumin (3.8-4.9) g/dL 07/20/23 07/20/23 Range/Units 04:07 06:00 BUN 27.2 H (9.0-27.0) mg/dL Creatinine 0.5 L (0.6-1.5) mg/dL BUN/Creatinine Ratio 54.40 H (12.00-20.00) Ratio Glucose 140 H (70-110) mg/dL POC Glucose (mg/dL) 128 H (70-110) mg/dL AST 9 L (13-35) U/L Total Protein 5.8 L (6.2-8.2) g/dL Albumin 3.6 L (3.8-4.9) g/dL Microbiology - Last 24 Hours (Table) 07/16/23 10:00 Anaerobic Culture - Preliminary Neck 07/16/23 10:00 Anaerobic Culture - Preliminary Neck 07/16/23 10:00 Gram Stain - Final Neck Wound Culture - Final 07/16/23 10:00 Gram Stain - Final Neck Wound Culture - Final Assessment and Plan Assessment: 1. C2-T1 spondylosis with stenosis 2. ASD s/p C5-7 ACDF with C6 corpectomy 3. Cervical myelopathy 4. UE and LE weakness 5. Neck pain - Postop day 4 status post posterior cervical C2-T2 decompression and fusion Plan: 1. C2-T1 spondylosis with stenosis; ASD s/p C5-7 ACDF with C6 corpectomy; Cervical myelopathy; UE and LE weakness; Neck pain - surgery performed , 4posterior cervical C2-T2 decompression and fusion. Patient stable at bedside this morning with hard c-collar in place and a dressing present over posterior cervical spine. Plan to work with therapy daily. Dressing removed and new dressing placed over incision. Pain medication as needed. Weight-bear as tolerated with walker and assistance as needed and hard c-collar at all times. Discharge to [facility] once auth obtained. 2. Appreciate medical management 3. Pain management - [place]; Gabapentin; flexeril 4. GI prophylaxis - senna; milk of magnesia 5. DVT prophylaxis - heparin; aspirin 6. PT/OT - weightbearing as tolerated with walker as needed and assistance. Hard c-collar on at all times 7. Encourage incentive spirometer use 8. Discharge planning - Discharge to [facility] once auth obtained. Time with Patient: Less than 30
[2023-07-20 10:24] LABS: Basophils # (A) 0.01 X 10*3/uL (0.00-0.10); Basophils % (A) 0.1 %; Eosinophils # (A) 0 X 10*3/uL (0.04-0.35); Eosinophils % (A) 0 %; HCT 34.7 % (37.2-46.3); HGB 11.2 g/dL (12.0-15.0); Lymphocytes # (A) 0.27 X 10*3/uL (0.90-5.00); Lymphocytes % (A) 2.4 %; MCH 30.9 pg (27.0-32.0); MCHC 32.3 g/dL (32.0-37.0); MCV 95.9 FL (80.0-97.0); Mean Platelet Volume 10.5 FL (9.5-12.2); Monocytes # (A) 0.28 X 10*3/uL (0.20-1.00); Monocytes % (A) 2.5 %; NRBC Per 100 WBC 0 X 10*3/uL (0.00-0.01); Neutrophils # (A) 10.58 X 10*3/uL (1.80-7.70); Neutrophils % (A) 94.6 %; Platelet Count 286 X 10*3/uL (140-440); RBC 3.62 X 10*6/uL (4.10-5.20); RDW 12.7 % (11.5-14.5); WBC 11.18 X 10*3/uL (4.50-10.00)
[2023-07-20 11:19] LABS: Glucose,Whole Blood 204 mg/dL (70-110)
[2023-07-20 16:21] LABS: Glucose,Whole Blood 130 mg/dL (70-110)
[2023-07-20 20:13] LABS: Glucose,Whole Blood 184 mg/dL (70-110)
--- NOTE | 2023-07-20 21:58 | PN ---
PROGRESS NOTE SUBJECTIVE: Status post C2-T1 spondylosis, ASD, status post C5-C7 ACDF with C6 corpectomy, cervical myelopathy, upper and lower extremity weakness and neck pain. She is in a C-collar. She has been up to the chair and commode, not able to get to the bathroom. She is going to possibly go to the rehab unit on discharge. OBJECTIVE: CARDIOVASCULAR: S1, S2. LUNGS: Transmitted upper sounds. PSYCH: Fair mood and affect. NEUROLOGIC: Alert and oriented x3. Sugars in mid 100s. Continue PT, OT. Discharge home medications have been ordered. To go to the long-term once apparently she is improved. Continue with breathing treatments, CPAP for sleep apnea and COPD, asthma. Prognosis guarded. MMODL / IJN: [id number] /
[2023-07-21 05:30] LABS: Glucose,Whole Blood 150 mg/dL (70-110)
[2023-07-21 07:31] VITALS: BP 173/84; RESP 17; TEMP 97.5
[2023-07-21 10:00] VITALS: PULSE 64
--- NOTE | 2023-07-21 10:21 | P.PN ---
Subjective Progress Note Date: 07/21/23 Principal diagnosis: 1. C2-T1 spondylosis with stenosis 2. ASD s/p C5-7 ACDF with C6 corpectomy 3. Cervical myelopathy 4. UE and LE weakness 5. Neck pain Patient was seen at bedside this morning sitting up in the edge of bed eating breakfast with a hard c-collar on and dressing in place over posterior cervical spine. Patient says she is feeling a little better today than she was yesterday. She says she did get up with therapy yesterday and was able to make it further distance and get to the bathroom. Patient says she is looking forward to going to rehab today. Patient denies any other issues at this time. Patient denies chest pain, fever, shortness breath,, loss of bowel/bladder control. Objective - Vital Signs Vital signs: Vital Signs Temp 97.5 F L 07/21/23 06:43 Pulse 64 07/21/23 09:43 Resp 17 07/21/23 06:43 BP 173/84 07/21/23 06:43 Pulse Ox 98 07/21/23 06:43 FiO2 Intake & Output 07/20/23 07/21/23 07/21/23 18:59 06:59 18:59 Intake Total 600 900 Balance 600 900 Intake: Intake, IV Titration 240 Amount Lactated Ringers 1,000 ml 240 @ 20 mls/hr IV .Q24H BERTHA Rx#:[id number] Oral 360 900 Other: Voiding Method Toilet # Voids 2 3 - Exam Dressing in place over posterior cervical spine. Dressing removed and new dressing placed over incision. [place] well aligned and intact. Some ecchymoses present surrounding incision. Sensation is equal, symmetric, intact throughout the upper extremities on exam. There is some generalized tenderness to patient diffusely throughout the posterior cervical spine at midline and in the paravertebral region. Nontender to palpation throughout rest exam. Patient does have limited range of motion bilateral upper extremities and shoulders and for elevation, abduction, external/internal rotation secondary stiffness and weakness. Patient has full range of motion throughout elbows and wrists and flexor extension bilaterally. 4-/5 in all major motor groups in bilateral upper extremities. Neurovascular status intact bilaterally. Cap refill under 3 seconds in digits of upper extremities. radial pulse intact, 2+ bilaterally. Negative Homans bilaterally. - Labs CBC & Chem 7: 07/20/23 04:07 07/20/23 04:07 Labs: Abnormal Lab Results - Last 24 Hours (Table) 07/20/23 07/20/23 07/20/23 Range/Units 04:07 11:17 16:20 WBC 11.18 H (4.50-10.00) X 10*3/uL RBC 3.62 L (4.10-5.20) X 10*6/uL Hgb 11.2 L (12.0-15.0) g/dL Hct 34.7 L (37.2-46.3) % Neutrophils # 10.58 H (1.80-7.70) X 10*3/uL Lymphocytes # 0.27 L (0.90-5.00) X 10*3/uL Eosinophils # 0 L (0.04-0.35) X 10*3/uL POC Glucose (mg/dL) 204 H 130 H (70-110) mg/dL 07/20/23 07/21/23 Range/Units 20:12 05:29 WBC (4.50-10.00) X 10*3/uL RBC (4.10-5.20) X 10*6/uL Hgb (12.0-15.0) g/dL Hct (37.2-46.3) % Neutrophils # (1.80-7.70) X 10*3/uL Lymphocytes # (0.90-5.00) X 10*3/uL Eosinophils # (0.04-0.35) X 10*3/uL POC Glucose (mg/dL) 184 H 150 H (70-110) mg/dL Assessment and Plan Assessment: 1. C2-T1 spondylosis with stenosis 2. ASD s/p C5-7 ACDF with C6 corpectomy 3. Cervical myelopathy 4. UE and LE weakness 5. Neck pain - Postop day 5 status post posterior cervical C2-T2 decompression and fusion Plan: 1. C2-T1 spondylosis with stenosis; ASD s/p C5-7 ACDF with C6 corpectomy; Cervical myelopathy; UE and LE weakness; Neck pain - surgery performed , 07/16/2023osterior cervical C2-T2 decompression and fusion. Patient stable at bedside this morning with hard c-collar in place and a dres sing present over posterior cervical spine. Plan to work with therapy daily. Dressing removed and new dressing placed over incision. Pain medication as needed. Weight-bear as tolerated with walker and assistance as needed and hard c-collar at all times. Discharge to [facility] today 2. Appreciate medical management 3. Pain management - [place]; Gabapentin; flexeril 4. GI prophylaxis - senna; milk of magnesia 5. DVT prophylaxis - heparin; aspirin 6. PT/OT - weightbearing as tolerated with walker as needed and assistance. Hard c-collar on at all times 7. Encourage incentive spirometer use 8. Discharge planning - Discharge to [facility] today Time with Patient: Less than 30
--- NOTE | 2023-07-21 10:27 | P.DS ---
Providers Date of admission: 07/16/23 05:51 Expected date of discharge: 07/21/23 Attending physician: Scotty Preciado DO Consults: 07/16/23 10:46 Consult Physician Routine Consulting Provider: Júnior Hancock Reason/Comments: medical management s/p C2-T2 posterior cervical decompr fusion Do you want consulting provider notified?: Yes Primary care physician: Júnior Hancock [facility] Course: Date of admission: 07/16/2023 Date of discharge: 07/21/2023 Admission diagnosis: 1. C2-T1 spondylosis with stenosis 2. ASD s/p C5-7 ACDF with C6 corpectomy 3. Cervical myelopathy 4. UE and LE weakness 5. Neck pain Discharge diagnosis: Same Attending physician: Dr. Preciado Surgical procedures: C2 to T2 posterior cervical decompression and fusion Brief history: Patient is a 62-year-old female with a history of C2-T1 spondylosis with stenosis; cervical myelopathy; upper extremity and lower extremity weakness; neck pain. At this point patient has failed conservative treatment measures and has opted to proceed with a elective C2-T2 posterior cervical decompression and fusion. Hospital course: Details of patient's surgery can be found in operative report. Patient tolerated the procedure well and was subsequently transported to orthopedic floor. Patient's orthopeidc and medical care was provided daily. Patient had daily laboratory tests performed for evaluation of overall blood counts. Patient had daily physical therapy to include strengthening range of motion as well as education with walker ambulation. Patient was treated with heparin for their postoperative DVT prophylaxis during their inpatient stay. Patient was noted to have a relatively uneventful postoperative course. Patient reported satisfactory pain control with oral pain medications by postoperative day 5. Patient showed satisfactory progress with physical therapy. Patient moved steadily through the program and had no difficulty meeting the goals by postoperative day 5. Given patient's otherwise satisfactory course and having met physical therapy goals, plan is to discharge patient to rehab on postoperative day 5. Discharge condition/disposition: Patient will be discharged to rehab in stable condition. Discharge medications: Instructions are given on resumption of patient's normal daily medications per primary care recommendation, in addition patient will be prescribed Whitehouse; gabapentin; Flexeril; senna; Duricef. Spine Discharge and Recovery Instructions Date of Surgery: 07/16/2023 Diagnosis: 1. C2-T1 spondylosis with stenosis 2. ASD s/p C5-7 ACDF with C6 corpectomy 3. Cervical myelopathy 4. UE and LE weakness 5. Neck pain Procedure: posterior cervical C2-T2 decompression and fusion Medications: See medication list All medication refills should be obtained through your primary care doctor or your clinic spine surgeon. Please discuss prescription refills at your follow up appointment. Do not call the hospital for medication refills. Dressing: Leave your dressing in place for a total of 5 days post operatively. Then you may remove your dressing and leave open to air. Keep the area clean and if not able to keep area clean, then cover with sterile gauze and tape. Showering: You may shower 3 days after your procedure allowing soap and water to run over incision. Do not scrub. Do not soak. Blot dry. Follow up: Please confirm a follow up appointment with your surgeon 3 weeks post operatively. Please make an appointment to follow up with your PCP in 1-2 weeks after surgery for evaluation 3 phase, 3-week plan POST OP WEEKS 1-3 1. Lifting/carrying/pushing/pulling limited to less than 5 pounds. 2. Do not sit for longer than 15 minutes at one time. Get up and walk around. Prolonged sitting is NOT advised. If you lay down, see if you can tolerate laying down on you front (belly side) 3. Walk for periods of 15 minutes = 1 mile but no longer; do it multiple times times each day. 4. Ice your low back after activity. POST OP WEEKS 3-6 1. Lifting limited to less than 20 pounds. 2. Do not sit for longer than 30 minutes at a time. Frequently change positions. Use a sit-to stand workstation or take frequent breaks from sitting if you have returned to work. 3. Walk for 30 minutes each day. If possible, do these three or more times a day POST OP WEEKS 6+ At your 6-week appointment we will give you a physical therapy referral to focus on a core stabilization and strengthening program. You should also work on leg & buttock strengthening, hamstring & quadriceps stretching, and continue a low impact aerobic activity program such as swimming, walking, or riding a stationary bicycle. During the initial 6 weeks after your surgery, you are at the highest risk of re-injuring your spine. You should generally avoid BLTs (bending, lifting and twisting combination motions) and follow the above guidelines to reduce the chance of reinjury. You can anticipate post op appointments in our office at approximately 3 weeks and 6 weeks after your surgery. INCISION CARE: If your incision is not draining you do NOT need to cover it with a dressing. Keep your incision clean, dry and intact. In most cases, we apply skin glue, ashish or sutures to the incision at the time of surgery. This will be like a crust or have the appearance of a scab and will fall off in time on its own. The stitches or ashish need to be removed at 3 weeks post op appointment. You may begin to shower 3 days after surgery (this allows the glue to márquez well). However, please avoid scrubbing the incision site or peeling off any of the skin glue. This will ensure optimal healing of your incision. Also, during this time avoid soaking the incision area in water - this includes swimming pools, hot tubs or baths. No ointments, lotions or oil s on the incision until your surgeon allows. Leave ashish, sutures or glue in place. Neurological dysfunction that comes on suddenly can also be a sign of a stroke. Below some common symptoms of a stroke are listed: B - balance difficulty such as sudden onset walking or leaning to one side - NEW E - eye problem such as sudden double vision or trouble seeing on one side - NEW F - Facial weakness or numbness on one side - NEW A - Arm or leg weakness or numbness on one side - NEW S - Slurred speech or difficulty with word finding - NEW T - Time is BRAIN! Call 911 as soon as you recognize these symptoms Diet: Consume a regular diet rich in vegetables and lean protein such as chicken or fish. You should consume in a ratio of approximately 20% fats|40% carbohydrates|40%protein. Vegetables, sweet potatoes, brown rice or quinoa are examples of good carbohydrates. Chips, white bread, cookies and sweets/sugar are examples of bad carbohydrates. Limit your bad carbs, go wild with good carbs. "Life's Simple 7" Guidelines as per [place] [employer] These will help you reclaim your life after surgery and rigging helper in your r ecovery, keeping in mind your restrictions. (1) Get Active. Physical activity can help people lose weight, control high blood pressure and cholesterol, feel emotionally better, and sleep better. (2) Control Cholesterol. Avoid a diet high in saturated fat, trans fat, & cholesterol. Limit whole milk & cream, ice cream, butter, egg yolks, processed meats (like sausage and hot dogs), and fatty meats. Choose healthy foods that are low in saturated fat, trans fat and cholesterol which include: Fruits and vegetables, fiber rich grain products (like whole grain pasta and brown rice), lean meat such as chicken, fish, nuts, seeds, and legumes. (3) Eat Better. Eat small portions. Shop at the grocery with a list and do not stray from it. Tips for a healthy diet include: Limit sodium intake to less than 1500mg daily, avoid prepackaged, processed, and fast foods, choose a diet rich in fruits, vegetables, and whole grain, high fiber foods, and limit saturated & cholesterol in your diet. (4) Manage Blood Pressure. If you have high blood pressure, you should have a cuff at home so that you can check your blood pressure regularly. Be sure you have a good cuff. An arm one is generally better than a wrist one. Bring the cuff to a doctor's appointment to validate that the measurements that your cuff are taking are accurate. Take your blood pressure twice daily when you are sitting down and relaxing. Record the numbers in a log and bring this log with you to your doctors' appointments. (5) Lose Weight if your BMI is above 25. A healthy BMI is between 19-25. To calculate Your BMI, you may use a Standard BMI Calculator on the NIH BMI website: <www.nhlbi.nih.gov/guidelines/obesity/BMI/bmicalc.htm>. Weigh oneself daily. If you are overweight, set a goal to lose weight. A pound a week loss if needed is a good target. (6) Reduce Blood Sugar. Limit foods and liquids with "added sugars." (Added sugars include sucrose, fructose, glucose, maltose, dextrose, high fructose corn syrup, corn syrup, concentrated fruit juice and honey). (7) Stop Smoking. If you smoke, quitting smoking is one of the best things that you can do for your health. Smoking increases your risk of heart attack, stroke, and peripheral vascular disease, which is a build-up of plaque in your arteries. Please discard all the cigarettes and lighters in your house. Have a plan for what you will do when you have the urge to smoke. Direct and second- hand smoke shortens your life as well as the lives of your family, friends and others around you. For your health and the health of those around you, please consider quitting! Proper Bending Body Mechanics: Maintain a wide stance with one foot slightly in front of the other. Keep your back straight. Bend utilizing the strength in your hips and knees. Do not bend at the waist. Maintain the lifted object at your waist-level close to your body. Avoid lifting weight that causes immediately pain or pain anywhere in the body afterwards. Smoking/Nicotine If there was ever one thing that you could do to increase your overall health, decrease your risk of cardiovascular problems by about 39% the second you make the choice, it is to STOP SMOKING. Your body's most instant gratification is the second you stop smoking. We have all heard the studies, read the articles but it is true, smoking is extremely bad for your overall health, and moreover it is detrimental to your bone health. Nicotine, IN ANY FORM, kills bone cells, prevents your body from healing fractures, and significantly prolongs healing after surgery. In spine surgery specifically, it increases your risk of not healing your bones to create a fusion and increases your risk of having a revision surgery due to this up to 60%. I know it is hard. I know it feels impossible. But there are ways. Take control of your life. We are here to help you through it. And when you are ready, ask us and we can direct you to help if you desire. Use the START Plan to Quit Smoking (please visit the HelpguStubl[employer].org website listed below for more information): S = Set a quit date. Choose a date within the next 2 weeks, so you have enough time to prepare without losing your motivation to quit. If you mainly smoke at work, quit on the weekend, so you have a few days to adjust to the change. T = Tell family, friends, and co-workers that you plan to quit. Let your friends and family in on your plan to quit smoking and tell them you need their support and encouragement to stop. Look for a quit sepideh who wants to stop smoking as well. You can help each other get through the rough times. A = Anticipate and plan for the challenges you'll face while quitting. Most people who begin smoking again do so within the first 3 months. You can help yourself make it through by preparing ahead for common challenges, such as nicotine withdrawal and cigarette cravings. R = Remove cigarettes and other tobacco products from your home, car, and work. Throw away all your cigarettes (no emergency pack!), lighters, ashtrays, and matches. Wash your clothes and freshen up anything that smells like smoke. Shampoo your car, clean your drapes and carpet, and steam your furniture. T = Talk to your doctor about getting help to quit. Your doctor can prescribe medication to help with withdrawal and suggest other alternatives. If you can't see a doctor, you can get many products over the counter at your local pharmacy or grocery store, including the nicotine patch, nicotine lozenges, and nicotine gum. Resources for Quitting Smoking: <https://www.[place].gov/documents/[facility]/Quit_Tobacco_Resources_for_patients_313 480_7.pdf> Supplementation: Take recommended dosages of Vitamin D and Calcium to help fortify your bones and help them to heal. See your health maintenance packet for dosages and recommended levels. DVT/VTE prophylaxis: You will be given compression stockings from the hospital. Wear these daily for the first two weeks after surgery. You may take them off at night. You may be prescribed a medication to help thin your blood. Take this as directed. If you are not prescribed this medication, early and frequent ambulation has been shown to be the best prophylaxis to deep vein thrombosis and sequelae related to this event. Assessment: 1. C2-T1 spondylosis with stenosis 2. ASD s/p C5-7 ACDF with C6 corpectomy 3. Cervical myelopathy 4. UE and LE weakness 5. Neck pain Procedures: posterior cervical C2-T2 decompression and fusion Patient Condition at Discharge: Good Plan - Discharge Summary New Discharge Prescriptions: New Gabapentin 300 mg PO TID #21 cap Cyclobenzaprine [Flexeril] 5 mg PO TID #21 tablet Sennosides/Docusate Sodium [Senna Plus 8.6-50 mg Softgel] 1 each PO DAILY #20 capsule HYDROcodone/APAP 7.5-325MG [Whitehouse 7.5-325] 1 tab PO Q6HR PRN #24 tab PRN Reason: Pain cefaDROXiL [Duricef] 500 mg PO Q12HR 5 Days #10 cap No Action Aspirin EC [Ecotrin Low Dose] 81 mg PO DAILY Pantoprazole [Protonix] 40 mg PO DAILY Montelukast [Singulair] 10 mg PO HS Levothyroxine Sodium 100 mcg PO DAILY Losartan [Cozaar] 25 mg PO DAILY Ergocalciferol [Vitamin D2 (1250 Mcg = 71978 Iu)] 1,250 mcg PO BUCKLEY Cyanocobalamin (Vitamin B-12) [Vitamin B-12] 1,000 mcg PO DAILY HYDROcodone/APAP 10-325MG [Whitehouse 10-325] 1 tab PO Q8HR PRN PRN Reason: Pain Alendronate Sodium [Fosamax] 70 mg PO BUCKLEY Perampanel [Fycompa] 10 mg PO HS Vitamin C/Biotin [Hair, Skin and Nails Chew] 1 tab PO DAILY levETIRAcetam [Keppra] 1,500 mg PO BID Ferrous Sulfate [Iron] 325 mg PO DAILY Lovastatin [Mevacor] 40 mg PO HS Loratadine [Claritin] 10 mg PO DAILY Potassium Chloride 20 meq PO DAILY EPINEPHrine (Auto Inject) [Epipen] 0.3 mg IM ONCE PRN PRN Reason: Anaphylaxis Gabapentin 600 mg PO TID Albuterol Inhaler [Ventolin Hfa Inhaler] 1 - 2 puff INHALATION Q6H PRN PRN Reason: Shortness Of Breath Beclomethasone Dip 80 Mcg/Puff [Qvar 80 mcg] 1 puff INHALATION DIRECTED Hydrocortisone (Unknown Dose) 1 dose PO BID Discharge Medication List Aspirin EC [Ecotrin Low Dose] 81 mg PO DAILY 02/22/19 [History] Pantoprazole [Protonix] 40 mg PO DAILY 11/10/19 [History] Montelukast [Singulair] 10 mg PO HS 09/14/20 [History] levETIRAcetam [Keppra] 1,500 mg PO BID 09/14/20 [History] Ferrous Sulfate [Iron] 325 mg PO DAILY 02/18/22 [History] Levothyroxine Sodium 100 mcg PO DAILY 02/18/22 [History] Cyanocobalamin (Vitamin B-12) [Vitamin B-12] 1,000 mcg PO DAILY 05/19/22 [History] Ergocalciferol [Vitamin D2 (1250 Mcg = 79001 Iu)] 1,250 mcg PO BUCKLEY 05/19/22 [History] Loratadine [Claritin] 10 mg PO DAILY 05/19/22 [History] Losartan [Cozaar] 25 mg PO DAILY 05/19/22 [History] Lovastatin [Mevacor] 40 mg PO HS 05/19/22 [History] Alendronate Sodium [Fosamax] 70 mg PO BUCKLEY 08/06/22 [History] HYDROcodone/APAP 10-325MG [Whitehouse 10-325] 1 tab PO Q8HR PRN 08/06/22 [History] Potassium Chloride 20 meq PO DAILY 08/06/22 [History] EPINEPHrine (Auto Inject) [Epipen] 0.3 mg IM ONCE PRN 03/20/23 [History] Gabapentin 600 mg PO TID 03/20/23 [History] Perampanel [Fycompa] 10 mg PO HS 03/20/23 [History] Albuterol Inhaler [Ventolin Hfa Inhaler] 1 - 2 puff INHALATION Q6H PRN 07/13/23 [History] Beclomethasone Dip 80 Mcg/Puff [Qvar 80 mcg] 1 puff INHALATION DIRECTED 07/13/23 [History] Hydrocortisone (Unknown Dose) 1 dose PO BID 07/13/23 [History] Vitamin C/Biotin [Hair, Skin and Nails Chew] 1 tab PO DAILY 07/13/23 [History] Cyclobenzaprine [Flexeril] 5 mg PO TID #21 tablet 07/21/23 [Rx] Gabapentin 300 mg PO TID #21 cap 07/21/23 [Rx] HYDROcodone/APAP 7.5-325MG [Whitehouse 7.5-325] 1 tab PO Q6HR PRN #24 tab 07/21/23 [Rx] Sennosides/Docusate Sodium [Senna Plus 8.6-50 mg Softgel] 1 each PO DAILY #20 capsule 07/21/23 [Rx] cefaDROXiL [Duricef] 500 mg PO Q12HR 5 Days #10 cap 07/21/23 [Rx] Follow up Appointment(s)/Referral(s): [facility], [NON-STAFF] - As Needed Scotty Preciado DO [Doctor of Osteopathic Medicine] - 2 Weeks Activity/Diet/Wound Care/Special Instructions: Spine Discharge and Recovery Instructions Date of Surgery: 07/16/2023 Diagnosis: 1. C2-T1 spondylosis with stenosis 2. ASD s/p C5-7 ACDF with C6 corpectomy 3. Cervical myelopathy 4. UE and LE weakness 5. Neck pain Procedure: posterior cervical C2-T2 decompression and fusion Medications: See medication list All medication refills should be obtained through your primary care doctor or your clinic spine surgeon. Please discuss prescription refills at your follow up appointment. Do not call the hospital for medication refills. Dressing: Leave your dressing in place for a total of 5 days post operatively. Then you may remove your dressing and leave open to air. Keep the area clean and if not able to keep area clean, then cover with sterile gauze and tape. Showering: You may shower 3 days after your procedure allowing soap and water to run over incision. Do not scrub. Do not soak. Blot dry. Follow up: Please confirm a follow up appointment with your surgeon 3 weeks post operatively. Please make an appointment to follow up with your PCP in 1-2 weeks after surgery for evaluation 3 phase, 3-week plan POST OP WEEKS 1-3 1. Lifting/carrying/pushing/pulling limited to less than 5 pounds. 2. Do not sit for longer than 15 minutes at one time. Get up and walk around. Prolonged sitting is NOT advised. If you lay down, see if you can tolerate laying down on you front (belly side) 3. Walk for periods of 15 minutes = 1 mile but no longer; do it multiple times times each day. 4. Ice your low back after activity. POST OP WEEKS 3-6 1. Lifting limited to less than 20 pounds. 2. Do not sit for longer than 30 minutes at a time. Frequently change positions. Use a sit-to stand workstation or take frequent breaks from sitting if you have returned to work. 3. Walk for 30 minutes each day. If possible, do these three or more times a day POST OP WEEKS 6+ At your 6-week appointment we will give you a physical therapy referral to focus on a core stabilization and strengthening program. You should also work on leg & buttock strengthening, hamstring & quadriceps stretching, and continue a low impact aerobic activity program such as swimming, walking, or riding a stationary bicycle. During the initial 6 weeks after your surgery, you are at the highest risk of re-injuring your spine. You should generally avoid BLTs (bending, lifting and twisting combination motions) and follow the above guidelines to reduce the chance of reinjury. You can anticipate post op appointments in our office at approximately 3 weeks and 6 weeks after your surgery. INCISION CARE: If your incision is not draining you do NOT need to cover it with a dressing. Keep your incision clean, dry and intact. In most cases, we apply skin glue, ashish or sutures to the incision at the time of surgery. This will be like a crust or have the appearance of a scab and will fall off in time on its own. The stitches or ashish need to be removed at 3 weeks post op appointment. You may begin to shower 3 days after surgery (this allows the glue to márquez well). However, please avoid scrubbing the incision site or peeling off any of the skin glue. This will ensure optimal healing of your incision. Also, during this time avoid soaking the incision area in water - this includes swimming pools, hot tubs or baths. No ointments, lotions or oils on the incision until your surgeon allows. Leave ashish, sutures or glue in place. Neurological dysfunction that comes on suddenly can also be a sign of a stroke. Below some common symptoms of a stroke are listed: B - balance difficulty such as sudden onset walking or leaning to one side - NEW E - eye problem such as sudden double vision or trouble seeing on one side - NEW F - Facial weakness or numbness on one side - NEW A - Arm or leg weakness or numbness on one side - NEW S - Slurred speech or difficulty with word finding - NEW T - Time is BRAIN! Call 911 as soon as you recognize these symptoms Diet: Consume a regular diet rich in vegetables and lean protein such as chicken or fish. You should consume in a ratio of approximately 20% fats|40% carbohydrates|40%protein. Vegetables, sweet potatoes, brown rice or quinoa are examples of good carbohydrates. Chips, white bread, cookies and sweets/sugar are examples of bad carbohydrates. Limit your bad carbs, go wild with good carbs. "Life's Simple 7" Guidelines as per [place] [employer] These will help you reclaim your life after surgery and rigging helper in your recovery, keeping in mind your restrictions. (1) Get Active. Physical activity can help people lose weight, control high blood pressure and cholesterol, feel emotionally better, and sleep better. (2) Control Cholesterol. Avoid a diet high in saturated fat, trans fat, & cholesterol. Limit whole milk & cream, ice cream, butter, egg yolks, processed meats (like sausage and hot dogs), and fatty meats. Choose healthy foods that are low in saturated fat, trans fat and cholesterol which include: Fruits and vegetables, fiber rich grain products (like whole grain pasta and brown rice), lean meat such as chicken, fish, nuts, seeds, and legumes. (3) Eat Better. Eat small portions. Shop at the grocery with a list and do not stray from it. Tips for a healthy diet include: Limit sodium intake to less than 1500mg daily, avoid prepackaged, processed, and fast foods, choose a diet rich in fruits, vegetables, and whole grain, high fiber foods, and limit saturated & cholesterol in your diet. (4) Manage Blood Pressure. If you have high blood pressure, you should have a cuff at home so that you can check your blood pressure regularly. Be sure you have a good cuff. An arm one is generally better than a wrist one. Bring the cuff to a doctor's appointment to validate that the measurements that your cuff are taking are accurate. Take your blood pressure twice daily when you are sitting down and relaxing. Record the numbers in a log and bring this log with you to your doctors' appointments. (5) Lose Weight if your BMI is above 25. A healthy BMI is between 19-25. To calculate Your BMI, you may use a Standard BMI Calculator on the NIH BMI website: <www.nhlbi.nih.gov/guidelines/obesity/BMI/bmicalc.htm>. Weigh oneself daily. If you are overweight, set a goal to lose weight. A pound a week loss if needed is a good target. (6) Reduce Blood Sugar. Limit foods and liquids with "added sugars." (Added sugars include sucrose, fructose, glucose, maltose, dextrose, high fructose corn syrup, corn syrup, concentrated fruit juice and honey). (7) Stop Smoking. If you smoke, quitting smoking is one of the best things that you can do for your health. Smoking increases your risk of heart attack, stroke, and peripheral vascular disease, which is a build-up of plaque in your arteries. Please discard all the cigarettes and lighters in your house. Have a plan for what you will do when you have the urge to smoke. Direct and second- hand smoke shortens your life as well as the lives of your family, friends and others around you. For your health and the health of those around you, please consider quitting! Proper Bending Body Mechanics: Maintain a wide stance with one foot slightly in front of the other. Keep your back straight. Bend utilizing the strength in your hips and knees. Do not bend at the waist. Maintain the lifted object at your waist-level close to your body. Avoid lifting weight that causes immediately pain or pain anywhere in the body afterwards. Smoking/Nicotine If there was ever one thing that you could do to increase your overall health, decrease your risk of cardiovascular problems by about 39% the second you make the choice, it is to STOP SMOKING. Your body's most instant gratification is the second you stop smoking. We have all heard the studies, read the articles but it is true, smoking is extremely bad for your overall health, and moreover it is detrimental to your bone health. Nicotine, IN ANY FORM, kills bone cells, prevents your body from healing fractures, and significantly prolongs healing after surgery. In spine surgery specifically, it increases your risk of not healing your bones to create a fusion and increases your risk of having a revision surgery due to this up to 60%. I know it is hard. I know it feels impossible. But there are ways. Take control of your life. We are here to help you through it. And when you are ready, ask us and we can direct you to help if you desire. Use the START Plan to Quit Smoking (please visit the Helpguide.org website listed below for more information): S = Set a quit date. Choose a date within the next 2 weeks, so you have enough time to prepare without losing your motivation to quit. If you mainly smoke at work, quit on the weekend, so you have a few days to adjust to the change. T = Tell family, friends, and co-workers that you plan to quit. Let your friends and family in on your plan to quit smoking and tell them you need their support and encouragement to stop. Look for a quit sepideh who wants to stop smoking as well. You can help each other get through the rough times. A = Anticipate and plan for the challenges you'll face while quitting. Most people who begin smoking again do so within the first 3 months. You can help yourself make it through by preparing ahead for common challenges, such as nicotine withdrawal and cigarette cravings. R = Remove cigarettes and other tobacco products from your home, car, and work. Throw away all your cigarettes (no emergency pack!), lighters, ashtrays, and matches. Wash your clothes and freshen up anything that smells like smoke. Shampoo your car, clean your drapes and carpet, and steam your furniture. T = Talk to your doctor about getting help to quit. Your doctor can prescribe medication to help with withdrawal and suggest other alternatives. If you can't see a doctor, you can get many products over the counter at your local pharmacy or grocery store, including the nicotine patch, nicotine lozenges, and nicotine gum. Resources for Quitting Smoking: <https://www.[facility].gov/documents/[facility]/Quit_Tobacco_Resources_for_patients_313480_7.pdf> Supplementation: Take recommended dosages of Vitamin D and Calcium to help fortify your bones and help them to heal. See your health maintenance packet for dosages and recommended levels. DVT/VTE prophylaxis: You will be given compression stockings from the hospital. Wear these daily for the first two weeks after surgery. You may take them off at night. You may be prescribed a medication to help thin your blood. Take this as directed. If you are not prescribed this medication, early and frequent ambulation has been shown to be the best prophylaxis to deep vein thrombosis and sequelae related to this event. Discharge Disposition: TRANSFER TO SNF/ECF
[2023-07-21 11:31] LABS: Glucose,Whole Blood 132 mg/dL (70-110)
--- NOTE | 2023-07-22 08:21 | PN ---
PROGRESS NOTE SUBJECTIVE: She wears a CPAP at night. She , status post cervical surgery. She is less lethargic; however, off all of her pain medicines. OBJECTIVE: VITAL SIGNS: O2 is 97%, pulse rate 70s to 80s. She was in mid 100s. A1c is 5.2. CARDIOVASCULAR: S1, S2. LUNGS: Transmitted upper airway sounds. GI: Soft. HEMATOLOGY: Negative Homans. ASSESSMENT: She has chronic obstructive pulmonary disease, seizure disorder, status post cervical laminectomy, history of seizures, she is on gabapentin and Keppra for that. Lipitor for cholesterol. Hypothyroidism, she is on Synthroid. Hypertension, Cozaar. Protonix for GERD. She is on Fycompa for seizures, CPAP for sleep apnea. She is much better. PT, OT. Possible go home soon. MMODL / IJN: [id number] /
== END 2023-07-21 15:32 | DRG 460 ==
LOC: 2ORMAIN 05:51 → 4SSUR 12:03
PROVIDERS: ADMIT Orthopaedic Surgery; ATTEND Orthopaedic Surgery
PROC: 0RG4071 Fusion of Cervicothoracic Vertebral Joint with Autologous Tissue Substitute, Posterior Approach, Posterior Column, Open Approach (ICD-10-PCS; 2023-07-16)
PROC: 0RG2071 Fusion of 2 or more Cervical Vertebral Joints with Autologous Tissue Substitute, Posterior Approach, Posterior Column, Open Approach (ICD-10-PCS; 2023-07-16)
PROC: 00NW0ZZ Release Cervical Spinal Cord, Open Approach (ICD-10-PCS; 2023-07-16)
PROC: 01N10ZZ Release Cervical Nerve, Open Approach (ICD-10-PCS; 2023-07-16)
PROC: 01N80ZZ Release Thoracic Nerve, Open Approach (ICD-10-PCS; 2023-07-16)
PROC: 00NX0ZZ Release Thoracic Spinal Cord, Open Approach (ICD-10-PCS; 2023-07-16)
PROC: 0RB50ZZ Excision of Cervicothoracic Vertebral Disc, Open Approach (ICD-10-PCS; 2023-07-16)
PROC: 4A11X4G Monitoring of Peripheral Nervous Electrical Activity, Intraoperative, External Approach (ICD-10-PCS; 2023-07-16)
PROC: 0RG6071 Fusion of Thoracic Vertebral Joint with Autologous Tissue Substitute, Posterior Approach, Posterior Column, Open Approach (ICD-10-PCS; principal; 2023-07-16 07:30)
DX: M96.0 Pseudarthrosis after fusion or arthrodesis (principal); E87.1 Hypo-osmolality and hyponatremia; M47.13 Other spondylosis with myelopathy, cervicothoracic region; M47.14 Other spondylosis with myelopathy, thoracic region; I50.32 Chronic diastolic (congestive) heart failure; M48.03 Spinal stenosis, cervicothoracic region; M47.23 Other spondylosis with radiculopathy, cervicothoracic region; M47.812 Spondylosis without myelopathy or radiculopathy, cervical region; I11.0 Hypertensive heart disease with heart failure; M47.817 Spondylosis without myelopathy or radiculopathy, lumbosacral region; E03.9 Hypothyroidism, unspecified; Z79.890 Hormone replacement therapy; G47.33 Obstructive sleep apnea (adult) (pediatric); E78.5 Hyperlipidemia, unspecified; F32.A Depression, unspecified; G25.81 Restless legs syndrome; M25.78 Osteophyte, vertebrae; Z91.030 Bee allergy status; Z88.8 Allergy status to other drugs, medicaments and biological substances; M43.16 Spondylolisthesis, lumbar region; K21.9 Gastro-esophageal reflux disease without esophagitis; J44.89 Other specified chronic obstructive pulmonary disease; G40.909 Epilepsy, unspecified, not intractable, without status epilepticus; E87.6 Hypokalemia; Z79.83 Long term (current) use of bisphosphonates; Z79.899 Other long term (current) drug therapy; Z90.710 Acquired absence of both cervix and uterus; Z79.82 Long term (current) use of aspirin; D72.829 Elevated white blood cell count, unspecified
CPT/HCPCS: 72040; 72125; 72128; 80048; 80053; 80177; 83036; 84443; 85025; 85610; 87070; 87075; 87205; 88304; 94640; 94760

== ENCOUNTER → 2024-01-25 | Outpatient (CLI) | payer MEDICARE, OTHER ==
[2024-01-25 09:29] VITALS: BP 121/82; PULSE 72; RESP 14; TEMP 98.3; BMI 31.2
== END | disposition home or self-care (01) ==
LOC: BARWHC3 09:00
PROVIDERS: ATTEND Surgery
CPT/HCPCS: 99211

== ENCOUNTER → 2024-05-23 | Outpatient (CLI) | payer MEDICARE, OTHER ==
[2024-05-23 11:35] VITALS: BP 115/80; PULSE 76; RESP 16; TEMP 98.2; BMI 31.9
--- NOTE | 2024-05-23 14:20 | P.HPBAR ---
Bariatric H&P - History & Physicial H&P Date: 05/23/24 History & Physicial: Visit/CC: F/U Patient initial contact: Initial weight: 137.438 kg Initial weight in pounds: 303.00 Height: 5 ft 7 in Initial BMI: 47.4 Last weight: Current weight: 92.533 kg Current weight in pounds: 204.00 Current BMI: 31.9 [place] body weight (based on NIH guidelines): 61.235 kg Excess body weight loss: 58.9% The patient is a 63 year-old F who presents for Bariatric Assessment. Patient presents today for bariatric follow-up. Patient has gained 10 pound since her last visit. She is in minimal gerd. Past Medical History Past Medical History: Asthma, Chest Pain / Angina, Heart Failure, GERD/Reflux, Hyperlipidemia, Hypertension, Osteoarthritis (OA), Pneumonia, Seizure Disorder, Skin Disorder, Sleep Apnea/CPAP/BIPAP, Thyroid Disorder Additional Past Medical History / Comment(s): Pinched nerves in back and neck, uses cane. Last seizure 4 weeks ago. "Blood pressure and heart rate go up and down all the time." Developementally disabled. Restless leg syndrome, neck and back pain with pain down bilateral legs, leg weakness, occasional numbness and tingling to bilateral hands and feet. CPAP use. Abdominal pain, diarrhea right after eating. Hx falls, persistant itching-cause unknown. Sees pain specialist for chronic pain. Hx pneumonia dehydration and seizure Dec 2021. Swelling in legs. History of Any Multi-Drug Resistant Organisms: None Reported Past Surgical History: Adenoidectomy, Bariatric Surgery, Cholecystectomy, Heart Catheterization, Hernia Repair, Hysterectomy, Tonsillectomy Additional Past Surgical History / Comment(s): Cervical surgery/cage 06/2023- living at [facility] for rehab right now, sleeve gastrectomy 12-01-18, LOOP RECORDER 05/28/2020. Past Anesthesia/Blood Transfusion Reactions: Previous Problems w/ Anesthesia Additional Past Anesthesia/Blood Transfusion Reaction / Comm: "Slow to wake up". States "was told by my sister's boyfriend that I had trouble breathing and almost during my neck surgery". No hx blood transfusion. Date of Last Stent Placement:: 06/03/2014 Type of Cardiac Device: Unknown Device Placement Date:: 05/28/2020 Smoking Status: Never smoker - Past Family History Father Family Medical History: Cancer Additional Family Medical History / Comment(s): Stomach cancer. Sister(s) Family Medical History: Cancer Additional Family Medical History / Comment(s): Stomach cancer. Mother Family Medical History: No Reported History Additional Family Medical History / Comment(s): . Surgical - Exam Vital Signs Temp Pulse Resp BP 98.2 F 76 16 115/80 05/23/24 11:33 05/23/24 11:33 05/23/24 11:33 05/23/24 11:33 - General well developed, well nourished - Eyes PERRL - ENT normal pinna - Neck no masses - Respiratory normal expansion - Cardiovascular Rhythm: regular - Abdomen Abdomen: soft, non tender Bariatric Assessment & Plan Plan: Status post sleeve. Patient's gerd is minimal and will be observed. She will follow-up in 8 weeks. Bariatric Checklist Checklist: Plan: Checklist: EGD: 1. Hiatal hernia: 2. H. Pylori: HgbA1c: Vitamin D: Smoking: Never smoker Primary care physician referral: PCP Júnior Hancock, Barbara=, [employer] [facility]ant=[place]/ Dr. Peralta-pcp Psychiatry clearance: Cardiology clearance: Sleep study: Diet journal: VTE risk score: VTE risk level: Rehab needs at discharge:
== END ==
LOC: BARWHC3 09:20
PROVIDERS: ATTEND Surgery
DX: K44.9 Diaphragmatic hernia without obstruction or gangrene (principal); B96.81 Helicobacter pylori [H. pylori] as the cause of diseases classified elsewhere; Z98.84 Bariatric surgery status; Z68.31 Body mass index [BMI] 31.0-31.9, adult; Z91.09 Other allergy status, other than to drugs and biological substances; Z91.030 Bee allergy status; Z88.8 Allergy status to other drugs, medicaments and biological substances; Z88.6 Allergy status to analgesic agent; Z91.041 Radiographic dye allergy status; Z91.040 Latex allergy status; Z88.0 Allergy status to penicillin
CPT/HCPCS: 99211

== ENCOUNTER → 2024-06-27 | Outpatient (CLI) | payer MEDICARE, OTHER ==
--- NOTE | 2024-06-27 10:42 | P.HPBAR ---
Bariatric H&P - History & Physicial H&P Date: 06/27/24 History & Physicial: Visit/CC: Patient initial contact: Initial weight: 137.438 kg Initial weight in pounds: Height: 5 ft 7 in Initial BMI: Last weight: Current weight: 92.079 kg Current weight in pounds: Current BMI: [place] body weight (based on NIH guidelines): Excess body weight loss: The patient is a 63 year-old F who presents for Bariatric Assessment. Patient presents today for bariatric follow-up. She is gained 2 pound since her last visit. She is minimal gerd. Past Medical History Past Medical History: Asthma, Chest Pain / Angina, Heart Failure, GERD/Reflux, Hyperlipidemia, Hypertension, Osteoarthritis (OA), Pneumonia, Seizure Disorder, Skin Disorder, Sleep Apnea/CPAP/BIPAP, Thyroid Disorder Additional Past Medical History / Comment(s): Pinched nerves in back and neck, uses cane. Last seizure 4 weeks ago. "Blood pressure and heart rate go up and down all the time." Developementally disabled. Restless leg syndrome, neck and back pain with pain down bilateral legs, leg weakness, occasional numbness and tingling to bilateral hands and feet. CPAP use. Abdominal pain, diarrhea right after eating. Hx falls, persistant itching-cause unknown. Sees pain specialist for chronic pain. Hx pneumonia dehydration and seizure Dec 2021. Swelling in legs. History of Any Multi-Drug Resistant Organisms: None Reported Past Surgical History: Adenoidectomy, Bariatric Surgery, Cholecystectomy, Heart Catheterization, Hernia Repair, Hysterectomy, Tonsillectomy Additional Past Surgical History / Comment(s): Cervical surgery/cage 06/2023- living at [facility] for rehab right now, sleeve gastrectomy 12-01-18, LOOP RECORDER 05/28/2020. Past Anesthesia/Blood Transfusion Reactions: Previous Problems w/ Anesthesia Additional Past Anesthesia/Blood Transfusion Reaction / Comm: "Slow to wake up". States "was told by my sister's boyfriend that I had trouble breathing and almost during my neck surgery". No hx blood transfusion. Date of Last Stent Placement:: 06/03/2014 Type of Cardiac Device: Unknown Device Placement Date:: 05/28/2020 Smoking Status: Never smoker - Past Family History Father Family Medical History: Cancer Additional Family Medical History / Comment(s): Stomach cancer. Sister(s) Family Medical History: Cancer Additional Family Medical History / Comment(s): Stomach cancer. Mother Family Medical History: No Reported History Additional Family Medical History / Comment(s): . Surgical - Exam - General well developed, well nourished, no distress - Eyes PERRL - ENT normal pinna - Neck no masses - Respiratory normal expansion - Cardiovascular Rhythm: regular - Abdomen Abdomen: soft, non tender Bariatric Assessment & Plan Plan: Resolving morbid obesity. Patient will follow-up in 3 months. Her gerd is minimal will be observed. Bariatric Checklist Checklist: Plan: Checklist: EGD: 1. Hiatal hernia: 2. H. Pylori: HgbA1c: Vitamin D: Smoking: Never smoker Primary care physician referral: PCP Barbara Carter=, Talent Acquisition Assistant=[place]/ Dr. Peralta-pcp Psychiatry clearance: Cardiology clearance: Sleep study: Diet journal: VTE risk score: VTE risk level: Rehab needs at discharge:
[2024-06-27 11:05] VITALS: BP 109/78; PULSE 67; RESP 16; BMI 31.8
== END ==
LOC: BARWHC3 10:26
PROVIDERS: ATTEND Surgery
DX: E66.01 Morbid (severe) obesity due to excess calories (principal); Z91.018 Allergy to other foods; Z91.030 Bee allergy status; Z88.6 Allergy status to analgesic agent; Z91.041 Radiographic dye allergy status; Z91.040 Latex allergy status; Z88.0 Allergy status to penicillin; Z88.8 Allergy status to other drugs, medicaments and biological substances
CPT/HCPCS: 99211

== ENCOUNTER → 2024-09-30 | Outpatient (CLI) | payer MEDICARE, OTHER ==
--- NOTE | 2024-09-30 16:15 | FL ---
EXAMINATION TYPE: FL barium swallow DATE OF EXAM: 09/30/2024 11:37 AM COMPARISON: . radiograph 06/29/2024 CLINICAL INDICATION:Female, 63 years old with history of R13.10 DYSPHAGIA K21.9 GERD; PHH, TECHNIQUE: The procedure was explained and patient history elicited. All patient questions were ans wered prior to start of procedure. Multiple spot fluoroscopic images of the esophagus were obtained a fter the oral ingestion of effervescent crystals and liquid barium as the contrast agent. DAP: NOT REPORTED mGym2 FINDINGS: The esophagus demonstrates normal primary and secondary peristalsis. Tertiary contractions are seen w ith delayed emptying of the esophageal contents. The esophageal mucosa is smooth without evidence of focal stricture, ulceration, or abnormal outpouching. No gastroesophageal reflux disease was identif ied loop recorder present. Fixation hardware in the spine is present. IMPRESSION: Severe Esophageal dysmotility. [facility], Workstation: [facility], 09/30/2024 4:13 PM
== END | disposition home or self-care (01) ==
LOC: RADFLMAIN 10:28
PROVIDERS: ATTEND Surgery
DX: K22.4 Dyskinesia of esophagus (principal); K21.9 Gastro-esophageal reflux disease without esophagitis
CPT/HCPCS: 74220

== ENCOUNTER → 2024-10-31 | Outpatient (CLI) | payer MEDICARE, OTHER ==
[2024-10-31 12:41] VITALS: BMI 31.0
== END ==
LOC: BARWHC3 10:20
PROVIDERS: ATTEND Surgery
DX: E66.01 Morbid (severe) obesity due to excess calories (principal); Z68.31 Body mass index [BMI] 31.0-31.9, adult; Z88.0 Allergy status to penicillin; Z91.048 Other nonmedicinal substance allergy status; Z91.040 Latex allergy status; Z91.030 Bee allergy status; Z91.041 Radiographic dye allergy status; Z88.6 Allergy status to analgesic agent; Z88.8 Allergy status to other drugs, medicaments and biological substances
CPT/HCPCS: 99211